=== PATIENT | female | born 1945 | race Caucasian/White ===

== ENCOUNTER 2020-06-07 00:03 | Emergency (ER) | payer MEDICARE, SELFPAY ==
[2020-06-07 00:09] VITALS: BP 136/80; BP 148/83; PULSE 79; PULSE 88; RESP 18; TEMP 36.7; O2SAT 97; BMI 32.6
--- NOTE | 2020-06-07 00:16 | ECG_ITS ---
Test Reason : FALL Blood Pressure : / mmHG Vent. Rate : 077 BPM Atrial Rate : 077 BPM P-R Int : 234 ms QRS Dur : 096 ms QT Int : 386 ms P-R-T Axes : 051 002 034 degrees QTc Int : 436 ms Sinus rhythm with 1st degree A-V block Otherwise normal ECG When compared with ECG of 25-FEB-2008 11:13, No significant change was found Referred By: Ruby Schreiber Electronically Signed By:TARI SALAZAR
--- NOTE | 2020-06-07 00:21 | CT_ITS ---
EXAMINATIONS: CT HEAD WITHOUT CONTRAST AND CT CERVICAL SPINE WITHOUT CONTRAST CLINICAL INFORMATION: Trauma. Fall. COMPARISON: None. TECHNIQUE: Contiguous helical images of the brain were obtained without IV contrast. Contiguous helical images of the cervical spine were obtained without IV contrast. Multiplanar reconstructions were performed. DLP: 1227 mGy-cm. FINDINGS: There are no pathologic extra-axial fluid collections. The lateral, third, fourth ventricles are nondilated and concordant with the appearance of the sulci. There is no evidence for acute intraparenchymal hemorrhage or infarct. There is neither mass nor mass effect. There is no shift of midline structures. The paranasal sinuses and mastoid air cells are clear. There are no osseous lesions. There is a soft tissue hematoma overlying the right frontal bone. The cervical vertebra are in normal alignment. There is disc height loss at C4/C5, C5/C6 and C6/C7 with anterior osteophyte formation. Disc heights and vertebral heights are otherwise well-preserved. There is fusion to the posterior elements on the right. There are no fractures. There is no prevertebral soft tissue swelling. There is no cervical lymphadenopathy. The visualized lung apices are clear. CT/CT cervical spine wo con IMPRESSION: No evidence for acute intracranial injury. No evidence for acute injury to the cervical spine. Age-appropriate lower cervical spine degenerative change. Automated exposure control (Care Dose) Adjustment of the mA and/or kv according to patient size (this includes techniques or standardized protocols for targeted exams where dose is matched to indication / reason for exam; i.e. extremities or head).
[2020-06-07] MEDS: oxyCODONE HCl Immed Release 5 MG TABLET 10 MG PO (00:34)
[2020-06-07] MEDS: Lidocaine HCl 2 % MPF 5 ML VIAL 20 ML INFILTRATI (00:34)
--- NOTE | 2020-06-07 01:33 | ED_ITS ---
HPI - Fall General Chief Complaint: Fall Stated Complaint: HEAD LAC Time Seen by Provider: 06/07/20 00:16 Source: patient Mode of arrival: EMS Limitations: no limitations History of Present Illness HPI Narrative: Patient comes to emergency room after tripping and falling. Patient states that she was walking down her hallway, there was a carpet and there were various objects laying around, while patient was trying to hurt all over 1 of them, she tripped. Patient states she hit her head, has a large laceration in the forehead and scalp, is not on blood thinners. Did not lose consciousness. Patient denies any acute pain anywhere else. Patient complaining of chronic pain all over her body, especially her back, but denies any new pain MD complaint: fall Related Data Previous Rx's Medication Instructions Recorded atenolol 25 mg tablet 25 mg PO DAILY #90 tab 05/13/20 allopurinol 300 mg tablet 150 mg PO DAILY #15 tab 05/18/20 Allergies Allergy/AdvReac Type Severity Reaction Status Date / Time aspirin [Aspirin] Allergy Mild NAUSEA Verified 06/07/20 00:09 codeine [Codeine] Allergy Mild VOMITING Verified 06/07/20 00:09 Aspir-81 AdvReac Unknown ABD Uncoded 02/02/20 00:00 CRAMPING ASPIRIN AdvReac Unknown Abd. Uncoded 01/22/20 00:00 cramping CODEINE AdvReac Unknown vomiting Uncoded 01/22/20 00:00 Codeine Sulfate AdvReac Unknown VOMIT Uncoded 02/02/20 00:00 Review of Systems Review of Systems: Constitutional : No Weight loss, No Fever, No Chills, No Night Sweats, No Fatigue, No Malaise ENT/Mouth : No Hearing loss, No Ear Pain, No Nasal Congestion, No Sinus Pain, No Hoarseness, No sore throat, No Rhinorrhea, No Swallowing Difficulty Eyes: No Eye Pain, No Swelling, No Redness, No Foreign Body, No Discharge, No Vision Changes Cardiovascular : No Chest Pain, No SOB, No Dyspnea on Exertion, No Orthopnea, No Edema, No Palpitations Respiratory : No Cough, No Sputum, No Wheezing, No Smoke Exposure, No Dyspnea Gastrointestinal : No Nausea, No Vomiting, No Diarrhea, No Constipation, No abdominal Pain, No Hematochezia, No Melena Genitourinary : no irregular bleeding, No Dysuria, No Urinary Frequency, No Hematuria, No Urinary Incontinence, No Urgency, No Flank Pain, No Urinary Flow Changes, No Hesitancy Musculoskeletal : Chronic back pain, no joint swelling Skin : Laceration in forehead and scalp Neuro : No Weakness, No Numbness, No Paresthesias, No Loss of Consciousness, No Dizziness, No Headache Psych : No Anxiety/Panic, No Depression, No SI/HI/AH/VH, No Social Issues, Heme/Lymph: No Bruising, No Bleeding,No Lymphadenopathy Endocrine : No Polyuria, No Polydipsia, No Temperature Intolerance [facility] Social History Social History Advance Directives: No Physical Exam Vital Signs: Vital Signs: Last Vital Signs Temp 98.1 F 06/07/20 00:09 Pulse 79 06/07/20 00:09 Resp 18 06/07/20 00:09 BP 148/83 H 06/07/20 00:09 Pulse Ox 97 06/07/20 00:09 Body Mass Index 32.6 Appearance: Alert. Oriented X3. No acute distress. Eyes: Pupils equal, round and reactive to light. ENT: Pharynx normal. Neck: Normal inspection. Neck supple. No lymph nodes noted. No crepitus CVS: Normal heart rate and rhythm. Pulses normal. Normal S1 and S2 Respiratory: No respiratory distress. Breath sounds normal. No Wheezing. No rales Abdomen: Soft and nontender. No rigidity. No distention. good BS x4 Skin: Skin warm and dry. There is a large laceration to the forehead, measuring 12 cm Extremities: No lower extremity edema. No lower extremity edema. No Lacerations. No Rash Neuro: Oriented X 3. No motor deficit. No sensory deficit. Moving all extermities. No slurred speech. Course Course Course Narrative: Patient tolerated well the procedure, patient received a total of 15 kyleigh and 6 sutures, CT scan of head and neck show no acute pathology Procedures Laceration Laceration 1: Site: scalp Size (cm): 12 Description: linear Depth: simple, single layer Local Anesthetic: lidocaine 2% Amount of anesthesia used (mL): 25 Pre-repair: irrigated extensively Skin layer closed with: nylon Size (cm): other (15 kyleigh and 6 sutures) Technique: simple, interrupted MDM - Fall Imaging Data Head and neck CT: Radiologist's impression: FINDINGS: There are no pathologic extra-axial fluid collections. The lateral, third, fourth ventricles are nondilated and concordant with the appearance of the sulci. There is no evidence for acute intraparenchymal hemorrhage or infarct. There is neither mass nor mass effect. There is no shift of midline structures. The paranasal sinuses and mastoid air cells are clear. There are no osseous lesions. There is a soft tissue hematoma overlying the right frontal bone. The cervical vertebra are in normal alignment. There is disc height loss at C4/C5, C5/C6 and C6/C7 with anterior osteophyte formation. Disc heights and vertebral heights are otherwise well-preserved. There is fusion to the posterior elements on the right. There are no fractures. There is no prevertebral soft tissue swelling. There is no cervical lymphadenopathy. The visualized lung apices are clear. CT/CT head/brain wo con IMPRESSION: No evidence for acute intracranial injury. No evidence for acute injury to the cervical spine. Age-appropriate lower cervical spine degenerative change.. ECG Data Attestation: I personally reviewed and interpreted this ECG as follows: (Sinus rhythm, heart rate 77, QTC 436, no ST segment depression or elevation, no T-wave inversions) Discharge Plan Discharge Clinical Impression: Laceration Fall Qualifiers: Encounter type: initial encounter Qualified Code(s): W19.XXXA - Unspecified fall, initial encounter Patient Disposition: Home, Self-Care Instructions: Laceration (ED), Contusion in Adults (ED), Staple Care (ED) Additional Instructions: The sutures and kyleigh need to be removed in 7-10 days. If you see any signs of infection such as redness, pus drainage, fever, or any new symptoms, please return to the emergency room. Please follow-up with your primary care physician tomorrow. If you have any worsening or new symptoms, please return to the emergency room or call 911 Prescriptions: No Action atenolol 25 mg tablet 25 mg PO DAILY Qty: 90 RF: 1 allopurinol 300 mg tablet 150 mg PO DAILY Qty: 15 RF: 3
--- NOTE | 2020-06-07 01:41 | PC.NURSE ---
PT W/ [facility] HEMATOMA TO R SIDE FOREHEAD & SCALP. LAC TO CTR OF TOP OF FOREHEAD CURVING TO PTS L SIDE OF SCALP. PT CLEARED OF C SPINE PRECAUTIONS. PT HAD 15 SARAH & 6 STITCHES TO LAC. TOLERATED WELL. AWAITING D/C INSTRUCTIONS. DAUGHTER TO RN URGENT CARE
[2020-06-07 02:00] VITALS: BP 137/82; PULSE 83; RESP 18; O2SAT 97
== END 2020-06-07 02:43 | disposition home or self-care (01) ==
PROVIDERS: Emergency Provider Emergency Medicine
DX: S01.81XA Laceration without foreign body of other part of head, initial encounter (principal); S01.01XA Laceration without foreign body of scalp, initial encounter; W01.198A Fall on same level from slipping, tripping and stumbling with subsequent striking against other object, initial encounter; Y93.89 Activity, other specified; Y92.018 Other place in single-family (private) house as the place of occurrence of the external cause; Y99.9 Unspecified external cause status
CPT/HCPCS: 12034; 70450; 72125; 93005; 99284

== ENCOUNTER → 2020-12-07 13:32 | Outpatient (BNVA) | payer MEDICARE, SELFPAY | PROVIDERS: PCP Physician Assistant; Visit Provider Internal Medicine | DX: Z13.89 Encounter for screening for other disorder (principal) | CPT/HCPCS: Q3014 ==

== ENCOUNTER → 2020-12-21 14:00 | Outpatient (BNVA) | payer MEDICARE, SELFPAY | PROVIDERS: PCP Physician Assistant; Referring Provider Physician Assistant; Visit Provider Surgery | DX: C44.509 Unspecified malignant neoplasm of skin of other part of trunk (principal); Z88.6 Allergy status to analgesic agent; Z88.5 Allergy status to narcotic agent | CPT/HCPCS: 99202 ==

== ENCOUNTER → 2020-12-27 10:35 | Outpatient (BNVA) | payer MEDICARE, SELFPAY | PROVIDERS: PCP Physician Assistant; Visit Provider Internal Medicine | DX: J41.0 Simple chronic bronchitis (principal); R06.89 Other abnormalities of breathing | CPT/HCPCS: 99212 ==

== ENCOUNTER 2020-12-29 10:32 | Day surgery (SDC) | payer MEDICARE, SELFPAY ==
--- NOTE | 2020-12-28 08:35 | P.CONAN_ITS ---
Documented by User: Molly Prattney 12/28/20 08:39 HPI - Anesthesia Eval Consult details Narrative: 75yo F for Wide Excision of Malignant Skin Lesion to Posterior Shoulder, Poss Split Thickness Skin Graft Pulmo cleared: FROM PULMONARY POINT OF VIEW SHE HAS NO CONTRAINDICATION TO JOEL NNED SURGICAL PROCEDURE UNDER GENERAL ANESTHESIA. AND I DO NOT ANTICIPATE ANY SIGNIFICANT RESPIRATORY ISSUES, POSTOPERATIVELY. chronic opioids - ? dose MS contin PMFSH Active Problems Active Problems: All Active Problems (Updated 12/27/20 @ 11:46 by Murphy Diamond MD) Hypoventilation syndrome (Acute) Skin cancer of trunk (Acute) COPD (chronic obstructive pulmonary disease) (Acute) Pyogenic granuloma (Acute) Failed back syndrome (Acute) Constipation due to pain medication (Acute) Visit for suture removal (Acute) Removal of kyleigh (Acute) Forehead laceration (Acute) HTN (hypertension) (Acute) Past Medical History Medical History COPD (chronic obstructive pulmonary disease) Failed back syndrome HTN (hypertension) Hypoventilation syndrome Skin cancer of face Skin cancer of trunk Family History Family History Father No problems noted. Mother No problems noted. Daughter Opiate dependence Substance use disorder Family/Other FH: mental illness Mental health disorder Surgical History Surgical History History of ankle surgery History of hip surgery History of knee surgery History of shoulder surgery Social History Social History Housing: Assisted Living Facility Alcohol intake: never Patient Tobacco Use Status: Former Tobacco user Tobacco use type: Cigarette Smoked in Last 30 Days: No Use of substances other than those prescribed or required for medical reasons: No Are you DNR?: No Advance Directives: No Advance Directives Information Provided: Yes Recently lost weight without trying: No Nutrition Risks: No Nutritional Risk Patient : No Current occupational status: retired Meds Allergies Allergy/AdvReac Type Severity Reaction Status Date / Time aspirin [Aspirin] Allergy Mild NAUSEA Verified 12/27/20 10:41 codeine [Codeine] Allergy Mild VOMITING Verified 12/27/20 10:41 Home Medications Medication Instructions Recorded Confirmed Last Taken Type buprenorphine HCl 300 mcg buccal 300 mcg PO BID 06/18/20 11/25/20 Unknown History film famotidine 20 mg tablet 20 mg PO BID 06/18/20 11/25/20 Unknown History flu vacc 2019-(64yr 0.5 ml IM DIRECTED 06/18/20 08/04/20 Unknown History up)-MF59C(PF) 60 mcg(15 mcgx4)/0.5 mL IM syringe lactulose 10 gram/15 mL oral 15 ml PO DAILY PRN 06/18/20 11/25/20 Unknown History solution naloxone 4 mg/actuation nasal spray 0 spray INTRANASAL DAILY 06/18/20 11/25/20 Unknown History topiramate 200 mg tablet 200 mg PO BID 06/18/20 11/25/20 Unknown History diazepam 5 mg tablet 5 mg PO TID tab 07/01/20 11/25/20 Unknown History morphine 15 mg immediate release mg PO 07/01/20 11/25/20 Unknown History tablet misoprostol 100 mcg tablet 100 mcg PO TID tab 12/07/20 Unknown History docusate sodium 100 mg capsule 100 mg PO BID 12/21/20 Unknown History lidocaine 5 % topical ointment TOPICAL 12/21/20 Unknown History ranitidine HCl 150 mg capsule 150 mg PO BID cap 12/21/20 Unknown History terbutaline 5 mg tablet 5 mg PO TID 12/21/20 Unknown History morphine 0.5 - 1 tab PO TID PRN 12/29/20 12/29/20 12/29/20 06:00 History Exam Exam Date and Time: December 28, 2020 0835 Narrative Narrative: EKG 05/2020 Vent. Rate : 077 BPM Atrial Rate : 077 BPM P-R Int : 234 ms QRS Dur : 096 ms QT Int : 386 ms P-R-T Axes : 051 002 034 degrees QTc Int : 436 ms Sinus rhythm with 1st degree A-V block Otherwise normal ECG When compared with ECG of 25-FEB-2008 11:13, No significant change was found Assessment and Plan Assessment Anesthesia Assessment: Chart Reviewed Documented by User: Kierra Castillo 12/29/20 11:30 [facility] Past Medical History Medical History COPD (chronic obstructive pulmonary disease) Failed back syndrome HTN (hypertension) Hypoventilation syndrome Skin cancer of face Skin cancer of trunk Family History Family History Father No problems noted. Mother No problems noted. Daughter Opiate dependence Substance use disorder Family/Other FH: mental illness Mental health disorder Surgical History Surgical History History of ankle surgery History of hip surgery History of knee surgery History of shoulder surgery Social History Social History Housing: Assisted Living Facility Alcohol intake: never Patient Tobacco Use Status: Former Tobacco user Tobacco use type: Cigarette Smoked in Last 30 Days: No Use of substances other than those prescribed or required for medical reasons: No Are you DNR?: No Advance Directives: No Advance Directives Information Provided: Yes Recently lost weight without trying: No Nutrition Risks: No Nutritional Risk Patient : No Current occupational status: retired [employer] Allergies Allergy/AdvReac Type Severity Reaction Status Date / Time aspirin [Aspirin] Allergy Mild NAUSEA Verified 12/27/20 10:41 codeine [Codeine] Allergy Mild VOMITING Verified 12/27/20 10:41 Home Medications Medication Instructions Recorded Confirmed Last Taken Type buprenorphine HCl 300 mcg buccal 300 mcg PO BID 06/18/20 11/25/20 Unknown History film famotidine 20 mg tablet 20 mg PO BID 06/18/20 11/25/20 Unknown History flu vacc (64yr 0.5 ml IM DIRECTED 06/18/20 08/04/20 Unknown History up)-MF59C(PF) 60 mcg(15 mcgx4)/0.5 mL IM syringe lactulose 10 gram/15 mL oral 15 ml PO DAILY PRN 06/18/20 11/25/20 Unknown History solution naloxone 4 mg/actuation nasal spray 0 spray INTRANASAL DAILY 06/18/20 11/25/20 Unknown History topiramate 200 mg tablet 200 mg PO BID 06/18/20 11/25/20 Unknown History diazepam 5 mg tablet 5 mg PO TID tab 07/01/20 11/25/20 Unknown History morphine 15 mg immediate release mg PO 07/01/20 11/25/20 Unknown History tablet misoprostol 100 mcg tablet 100 mcg PO TID tab 12/07/20 Unknown History docusate sodium 100 mg capsule 100 mg PO BID 12/21/20 Unknown History lidocaine 5 % topical ointment TOPICAL 12/21/20 Unknown History ranitidine HCl 150 mg capsule 150 mg PO BID cap 12/21/20 Unknown History terbutaline 5 mg tablet 5 mg PO TID 12/21/20 Unknown History morphine 0.5 - 1 tab PO TID PRN 12/29/20 12/29/20 12/29/20 06:00 History Exam Airway Mallampati Class: II TM Dist: >3cm Neck ROM: Limited Assessment and Plan Assessment Anesthesia Assessment: Anesthesia Plan Discussed and Chart Reviewed Final Anesthetic Review NPO: Yes ASA Class: III Final Preanesthetic Review: No Changes in Pt Med Stat, Meds/Allgs Chart Reviewed, Consent Obtained/Reviewed and Anes Risks/Benef Reviewed Patient Risk: Intermediate Procedure Risk: Low Assessment/Block/Sedation in SS: Assess/Block/Sedation-SS Anesthetic Plan Anesthetic Plan: GA Disposition: Standard PACU
[2020-12-29] VITALS (11 sets, daily range): BP systolic 91–143; BP diastolic 45–72; PULSE 86–114; RESP 16–20; TEMP 36.3–37.1; O2SAT 92–96; BMI 30.1
[2020-12-29 10:58] LABS: Hematocrit 38.8 % (37-47); Mean Corpuscular HGB Conc 33.5 g/dl (31.0-35.0); Mean Corpuscular Hemoglobin 33.9 pg (27.0-33.0); Mean Platelet Volume 10.5 fL (9.4-12.3); Platelet Count 149 X10*3/uL (160-400); Red Blood Count 3.84 X10*6/uL (4.20-5.50); Red Cell Distribution Width 13.5 % (11.0-16.0); White Blood Count 5.7 X10*3/uL (4.8-10.8)
--- NOTE | 2020-12-29 11:07 | PC.NURSE ---
APPLIED 2L NC FOR COMFORT TO REAPPLY CLEAR SHIELD.
[2020-12-29] MEDS: Lactated Ringers 1,000 ML 100 ML IVCONT (11:15)
--- NOTE | 2020-12-29 11:20 | PC.NURSE ---
CALLED FOR RESP TREATMENT.
[2020-12-29] MEDS: Albuterol Sulfate (0.083%) 2.5 MG/3 ML VIAL.NEB INHALE (11:24)
--- NOTE | 2020-12-29 11:26 | PC.NURSE ---
RECEVING RESP TREATMENT. HOB 90 DEGREES. NADEGE WELL. OXYGEN REMAINS ON FOR COMFORT. DECREASED ANXIETY. NO SHAKING OR CRYING.
[2020-12-29 11:33] LABS: Anion Gap 13 (12-20); Blood Urea Nitrogen 22 mg/dL (9-16); Calcium 9.2 mg/dL (8.4-10.2); Carbon Dioxide 24 mmol/L (22-29); Chloride 110 mmol/L (96-108); Creatinine Clr Calc Pharmacy 50.6; Estimated Glomerular Filt Rate 59; Glucose Fasting 123 mg/dL (60-99); Potassium 3.7 mmol/L (3.3-5.1); Sodium 143 mmol/L (135-145)
--- NOTE | 2020-12-29 13:10 | P.OP_ITS ---
Operative Note Operative Note Date of Service: 12/29/20 Narrative: Preoperative diagnosis: Skin Neoplasm right posterior shoulder Postoperative diagnosis: Same Procedure: Excision of skin neoplasm right posterior shoulder Surgeon: Sudheer Barreto MD Physical Therapy Resident: No physician Anesthesia: General LMA Indications for procedure: 75-year-old female patient presenting with a large ulcerated lesion of the right posterior shoulder measuring approximately 5 cm in diameter. The lesion has gradually increased in size with associated itchiness the skin. She initially thought this was an infection however after course of antibiotics she continue to report the same symptoms. 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 Operative findings: Patient was found to have a 5 cm skin lesion in the right posterior shoulder. This was excised using a 5 mm margin circumferentially. Specimen: Skin neoplasm right posterior shoulder Estimated blood loss: 10 mL Complications: None Procedure details: Patient was brought to the OR and placed in a prone position. After administering general anesthesia the patient's right shoulder was prepped with Betadine and draped in a sterile fashion. A surgical time-out was called the consent confirmed. Patient received preoperative antibiotics and Venodyne boots were in place. Local anesthesia consisting of 0.25% Sensorcaine with epinephrine was then infiltrated circumferentially around the lesion. An elliptical incision oriented longitudinally was then created with a scalpel. This was carried out through subcutaneous tissue and around the skin lesion. The lesion was marked with a long suture on the lateral margin short suture on the superior margin and loop suture on the inferior margin. The lesion was passed off the table and sent to pathology for routine evaluation. The wounds were checked for hemostasis which was assured using electrocautery. Dermis was then reapproximated using interrupted 3-0 Polysorb sutures. Skin was closed using a 3-0 nylon suture as a retention suture followed by skin kyleigh in between. Additional local anesthesia was then infiltrated in the skin. Sterile dressings were then applied. The patient tolerated the procedure well. Sponge, instrument, and needle counts reported as correct. The patient was transferred to PACU in stable condition.
[2020-12-29] MEDS: oxyCODONE HCl Immed Release 5 MG TABLET PO (13:45)
== END 2020-12-29 15:15 | disposition home or self-care (01) ==
PROVIDERS: Nurse Practitioner; PCP Physician Assistant; Visit Provider Surgery
PROC: (CPT 11606; principal; 2020-12-29 12:00)
DX: C44.622 Squamous cell carcinoma of skin of right upper limb, including shoulder (principal); J44.9 Chronic obstructive pulmonary disease, unspecified; R06.89 Other abnormalities of breathing; I10 Essential (primary) hypertension; Z79.51 Long term (current) use of inhaled steroids; Z79.899 Other long term (current) drug therapy; Z88.8 Allergy status to other drugs, medicaments and biological substances; Z87.891 Personal history of nicotine dependence
CPT/HCPCS: 11606; 12032; 36415; 80048; 85027; 88305; 94640; J0131; J0690; J1100; J2405; J3010

== ENCOUNTER → 2021-01-11 09:46 | Outpatient (BNVA) | payer MEDICARE, SELFPAY | PROVIDERS: PCP Physician Assistant; Referring Provider Physician Assistant; Visit Provider Surgery | DX: Z48.3 Aftercare following surgery for neoplasm (principal); Z85.828 Personal history of other malignant neoplasm of skin | CPT/HCPCS: 99212 ==

== ENCOUNTER → 2021-06-27 14:05 | Outpatient (BNVA) | payer MEDICARE, SELFPAY | PROVIDERS: PCP Physician Assistant; Visit Provider Internal Medicine | DX: J41.0 Simple chronic bronchitis (principal); R06.89 Other abnormalities of breathing | CPT/HCPCS: Q3014 ==

== ENCOUNTER → 2022-02-09 14:26 | Outpatient (BNVA) | payer MEDICARE, SELFPAY | PROVIDERS: PCP Physician Assistant; Visit Provider Internal Medicine | DX: J41.0 Simple chronic bronchitis (principal); R06.89 Other abnormalities of breathing; M96.1 Postlaminectomy syndrome, not elsewhere classified | CPT/HCPCS: Q3014 ==

== ENCOUNTER 2023-04-04 14:47 | Outpatient (AMB) | payer MEDICARE, SELFPAY ==
[2023-04-04 14:48] VITALS: BMI 33.3
--- NOTE | 2023-04-04 14:48 | MHC.OFFVIS ---
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 Allergies aspirin [Aspirin] Allergy (Mild, Verified 04/04/23 14:59) NAUSEA codeine [Codeine] Allergy (Mild, Verified 04/04/23 14:59) VOMITING Medication List - Last Reconciled 04/04/23 by Murphy Diamond MD acetaminophen 500 mg PO Q6H PRN 30 days albuterol sulfate 90 mcg/actuation 2 puffs PO Q4-6H PRN alcohol swabs (Alcohol Prep Pads) 1 pad topical TID 90 days allopurinol 150 mg (1/2 x 300 mg) PO DAILY apixaban (Eliquis) 5 mg PO BID 30 days blood sugar diagnostic (FreeStyle Lite Strips) As directed blood sugar diagnostic (OneTouch Ultra Test strips) As directed check blood sugar 3 times a day blood-glucose meter (FreeStyle Lite Meter kit) As directed blood-glucose meter (OneTouch Ultra2 Meter kit) As directed check the blood sugar TID diltiazem HCl 240 mg PO DAILY 90 days docusate sodium 100 mg PO BID PRN famotidine 20 mg PO DAILY 90 days flash glucose scanning reader (FreeStyle Sinan 2 [place]) As directed flash glucose scanning reader (FreeStyle Sinan 2 [place]) As directed flash glucose sensor (FreeStyle Sinan 2 Sensor kit) As directed flash glucose sensor (FreeStyle Sinan 2 Sensor kit) As directed fluticasone furoate-vilanterol 200-25 mcg/dose (Breo Ellipta) 1 ea inhalation DAILY furosemide 40 mg PO BID gabapentin 300 mg PO TID [address] bed As directed insulin glargine 20 units (0.2 mL) subcut QAM insulin lispro (Admelog SoloStar U-100 Insulin lispro) 15 units (0.15 mL) subcut TID ipratropium-albuterol 0.5 mg-3 mg(2.5 mg base)/3 mL 3 mL inhalation Q6H PRN lactulose 15 mL PO DAILY PRN lancets (OneTouch UltraSoft Lancets) As directed check the blood sugar TID lancets (FreeStyle Lancets) As directed lidocaine 5% 1 appl topical DAILY 30 days meclizine 12.5 mg PO TID PRN metoprolol tartrate 25 mg PO TID 90 days miscellaneous medical supply 1 ea miscellaneous DAILY 99 days miscellaneous medical supply 1 ea miscellaneous DAILY 99 days misoprostol 100 mcg PO TID naloxone 4 mg/actuation 0 sprays intranasal DAILY paroxetine HCl 20 mg PO QAM pen needle, diabetic (BD Ultra-Fine Tamia Pen Needle) three times per day sennosides (Senna Lax) 17.2 mg (2 x 8.6 mg) PO BEDTIME PRN 30 days theophylline ER 200 mg PO Q12H 30 days tiotropium bromide (Spiriva with HandiHaler) 1 cap inhalation DAILY 30 days topiramate 200 mg PO BID Do you need a note to return to daycare/school/sports/work: No HPI COPD HPI Details Ellen is 77 years old female with longstanding history of chronic obstructive pulmonary disease,due to her previous smoking. She also has chronic history of opioid abuse, due to ongoing chronic back pain. She used to be on morphine sulfate ER b.i.d. for many years but not at present. Her COPD remains fairly controlled , but she gets short of breath on any minimal exertion. She has been on Spiriva HandiHaler as well as Breo Ellipta, and she has been taking theophylline ER 200 mg b.i.d. for long time. Her current complaint is that she is having very bad and frequent cough for the last few weeks, She has no fever or chills. The cough is mostly non productive. It is making her breathing worse. She could not .come to the office today Requested a tele visit. [facility] Medical History (Updated 04/04/23 @ 15:53 by Murphy Diamond MD) Cough Hypoventilation syndrome Skin cancer of trunk Skin cancer of face COPD (chronic obstructive pulmonary disease) Failed back syndrome Surgical History History of knee surgery History of shoulder surgery History of ankle surgery History of hip surgery Family History Father No problems noted. Mother No problems noted. Daughter Opiate dependence Substance use disorder Family/Other FH: mental illness Mental health disorder Social History Housing: Assisted Living Facility Alcohol intake: never Patient Tobacco Use Status: Former Tobacco user Tobacco use type: Cigarette e-Cigarette/Vaping Use: Never Used Current occupational status: retired and disabled Cognitive needs: Yes Hearing needs: No Vision needs: Yes Review of Systems Const All systems reviewed & are unremarkable except as noted in HPI and below Reports headache(s) (Frequent) Eyes Reports no additional complaints ENT Reports headache(s) (Frequent) and Reports nasal congestion (Mild off and) Card Denies chest pain, Denies irregular heart rhythm and Denies leg edema Resp Reports as per HPI GI Reports no additional complaints Reports no additional complaints Musc Reports back pain (Chronic, controlled) Skin/Breast Reports system reviewed and no additional complaints, except as documented Neuro Reports headache(s) (Frequent) Psych Reports no additional complaints Physical Exam Vital Signs: BMI result Body Mass Index 33.3 TELE VISIT SO NO PHYSICAL EXAMINATION PERFORMED HOWEVER PATIENT APPEARED VERY ANXIOUS, SHORT OF BREATH DURING CONVERSATION, AND FEARFUL THAT SHE MAY END UP IN THE HOSPITAL AGAIN. Assessment & Plan Assessment & Plan (1) COPD (chronic obstructive pulmonary disease): Comment: Has chronic COPD due to old time smoking/ Br Asthma It has remained relatively stable. TX: BREO-201 INHALATION DAILY INCRUSE ELLIPTA 1 INHALATION DAILY. PROAIR 2 PUFFS Q 4-6 HOURS P.R.N. THEOPHYLLINE ER 200 MG( HALF OF 400 MG) BID Code(s): J44.9 - Chronic obstructive pulmonary disease, unspecified Qualifiers: COPD type: chronic bronchitis Chronic bronchitis type: simple Qualified Code(s): J41.0 - Simple chronic bronchitis (2) Hypoventilation syndrome: Comment: EARLY ON WHEN SHE USED TO BE ON HEAVY DUTY NARCOTIC MEDS, SHE DID HAVE EVIDENCE OF SOME CO2 RETENTION, CONSIDERED TO BE DUE TO HYPOVENTILATION. THE MEDICAL REGIMEN NOTED ABOVE, ESPECIALLY THEOPHYLLINE , HAS HELPED TO ALLEVIATE HER HYPOVENTILATION PROBLEM. Code(s): R06.89 - Other abnormalities of breathing (3) Failed back syndrome: Comment: THIS KEEPS HER SEVERELY IMPAIRED AND DEBILITATED. FOR CHRONIC PAIN SHE HAS BEEN FOLLOWED AT THE [facility]. AND USES MORPHINE SULFATE 15 MG Q 6 HOURS P.R.N. Code(s): M96.1 - Postlaminectomy syndrome, not elsewhere classified (4) Opiate dependence: Comment: She has had opiates dependence for many years for her chronic back pain/ failed back surgeries in the past. Code(s): F11.20 - Opioid dependence, uncomplicated Qualifiers: Substance use status: uncomplicated Qualified Code(s): F11.20 - Opioid dependence, uncomplicated (5) Cough: Comment: The cough at this time is described as out of proportion to her COPD. Most likely she has acute respiratory infection. Will empirically treat with doxycycline 100 b.i.d. for 10 days. Continue to use DuoNeb updraft Q 4-6 hours p.r.n.. I told patient that if she is not any better in the next few weeks she should come for office visit in person . Code(s): R05.9 - Cough, unspecified Telehealth Telehealth Location of provider rendering services: practice address Location of patient: address on file Patient Identification confirmed using: Name, : Yes Telehealth method: voice only Patient verbally consented to treatment: Yes Patient verbally consented to billing insurance company: Yes Patient informed of any privacy concerns related to visit: Yes Minutes spent on Phone/Video with Pt.: 20 Coding Level of Care Code Tele [facility] Pt Level 3 (85534) Diagnoses Simple chronic bronchitis J41.0 COPD type: chronic bronchitis Chronic bronchitis type: simple Hypoventilation syndrome R06.89 Failed back syndrome M96.1 Uncomplicated opioid dependence F11.20 Substance use status: uncomplicated Cough R05.9
== END 2023-04-04 15:05 | disposition home or self-care (01) ==
LOC: HO.HPS 14:47
PROVIDERS: PCP Physician Assistant; Visit Provider Internal Medicine
DX: J41.0 Simple chronic bronchitis (principal); M96.1 Postlaminectomy syndrome, not elsewhere classified; F11.20 Opioid dependence, uncomplicated
CPT/HCPCS: 99442

== ENCOUNTER → 2023-04-04 14:47 | Outpatient (BNVA) | payer MEDICARE, SELFPAY | PROVIDERS: PCP Physician Assistant; Visit Provider Internal Medicine ==

== ENCOUNTER 2023-04-17 13:59 | Outpatient (AMB) | payer MEDICARE, SELFPAY ==
--- NOTE | 2023-04-17 14:11 | MHC.PC.OV ---
Vital Signs 04/17/23 14:29 Height 5 ft 3 in Weight 194 lb 7.163 oz BMI 34.4 BP 130/72 Blood Pressure Location Lt brachial Position Sitting Respiration 17 Pulse 94 Pulse Source Pulse Oximeter Pulse Oximetry (%) 93 Oxygen Delivery Method Room Air Intake Visit Reasons: medication f/u Dr[employer] Offsider Required: No Accompanied by: Self / Same As Patient Allergies aspirin [Aspirin] Allergy (Mild, Verified 04/17/23 14:37) NAUSEA codeine [Codeine] Allergy (Mild, Verified 04/17/23 14:37) VOMITING Medication List - Last Reconciled 04/17/23 by Ti Thompson PA-C acetaminophen 500 mg PO Q6H PRN 30 days albuterol sulfate 90 mcg/actuation 2 puffs PO Q4-6H PRN alcohol swabs (Alcohol Prep Pads) 1 pad topical TID 90 days allopurinol 150 mg (1/2 x 300 mg) PO DAILY apixaban (Eliquis) 5 mg PO BID 30 days blood sugar diagnostic (FreeStyle Lite Strips) As directed blood sugar diagnostic (OneTouch Ultra Test strips) As directed check blood sugar 3 times a day blood-glucose meter (FreeStyle Lite Meter kit) As directed blood-glucose meter (OneTouch Ultra2 Meter kit) As directed check the blood sugar TID diltiazem HCl 240 mg PO DAILY 90 days docusate sodium 100 mg PO BID PRN famotidine 20 mg PO DAILY 90 days flash glucose scanning reader (FreeStyle Sinan 2 Thrall) As directed flash glucose scanning reader (FreeStyle Sinan 2 Thrall) As directed flash glucose sensor (FreeStyle Sinan 2 Sensor kit) As directed flash glucose sensor (FreeStyle Sinan 2 Sensor kit) As directed fluticasone furoate-vilanterol 200-25 mcg/dose (Breo Ellipta) 1 ea inhalation DAILY furosemide 40 mg PO BID gabapentin 300 mg PO TID 90 [address] hospital bed As directed insulin glargine 20 units (0.2 mL) subcut QAM insulin lispro (Admelog SoloStar U-100 Insulin lispro) 15 units (0.15 mL) subcut TID ipratropium-albuterol 0.5 mg-3 mg(2.5 mg base)/3 mL 3 mL inhalation Q6H PRN lactulose 15 mL PO DAILY PRN lancets (EnTouch ControlsTouch UltraSoft Lancets) As directed check the blood sugar TID lancets (FreeStyle Lancets) As directed lidocaine 5% 1 appl topical DAILY 30 days meclizine 12.5 mg PO TID PRN metoprolol tartrate 25 mg PO TID 90 days miscellaneous medical supply 1 ea miscellaneous DAILY 99 days miscellaneous medical supply 1 ea miscellaneous DAILY 99 days misoprostol 100 mcg PO TID naloxone 4 mg/actuation 0 sprays intranasal DAILY paroxetine HCl 20 mg PO QAM pen needle, diabetic (BD Ultra-Fine Tamia Pen Needle) three times per day sennosides (Senna Lax) 17.2 mg (2 x 8.6 mg) PO BEDTIME PRN 30 days theophylline ER 200 mg PO Q12H 30 days tiotropium bromide (Spiriva with HandiHaler) 1 cap inhalation DAILY 30 days topiramate 200 mg PO BID Tobacco use date assessed: 04/17/23 Fall risk assessment: No Falls in past year Last assessed Fall Risk: 04/17/23 Dental Screening Dental Screen Date: 04/17/23 Did you have a dental visit in the last 12 months?: No Did you have a dental problem in the last 6 months where you did not have access to dental care?: No Was dental information given to patient?: No (Dentures) HPI medication f/u HPI Details Patient is a 77-year-old female here today for follow-up visit. Patient has a past medical history significant for hypertension, paroxysmal AFib, Congestive heart failure with preserved left ejection fraction, type 2 diabetes, failed back syndrome, COPD Very difficult for her to make it into appointments due to her debilitating neck and lower back pain. Failed back syndrome: Patient was followed by [facility] pain management though has recently been discharge for a positive urine drug screen for cocaine . She has been weaned off of morphine She is now on gabapentin 300 t.i.d. and reports no affect on her pain. She is asking for a new medication for her pain. Will supply her with cyclobenzaprine 10 mg t.i.d.. . DMII: Today's A1c of 5.8.. Patient continues on multiple injections of insulin per day. She continues to follow her sugars at home reports normal blood sugars. No reports of hypoglycemic events. Unfortunately has not been able to get fasting labs done due to transportation issues. .. 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 She is a former smoker. She does report still having some shortness of breath on exertion. Continues with p.r.n. use of her albuterol inhaler and daily use of her Breo inhaler. .. AFib: Continues on Eliquis and beta-tate for rate control. Currently not followed by attending physician.. Denies any overt signs of bleeding. . Congestive heart failure: Continue with the daily furosemide 40 mg b.i.d.. Appears to be euvolemic on physical exam today. [facility] Medical History (Updated 04/17/23 @ 14:43 by Ti Thompson PA-C) Cough Hypoventilation syndrome Skin cancer of trunk Skin cancer of face COPD (chronic obstructive pulmonary disease) Failed back syndrome Surgical History History of knee surgery History of shoulder surgery History of ankle surgery History of hip surgery Family History Father No problems noted. Mother No problems noted. Daughter Opiate dependence Substance use disorder Family/Other FH: mental illness Mental health disorder Social History Housing: Assisted Living Facility Alcohol intake: never Patient Tobacco Use Status: Former Tobacco user Tobacco use type: Cigarette e-Cigarette/Vaping Use: Never Used service: No Current occupational status: retired and disabled Cognitive needs: Yes Hearing needs: No Vision needs: Yes Questionnaire PHQ-9 Over the last 2 weeks, how often have you been bothered by any of the following problems? 1. Little interest or pleasure in doing things: not at all 2. Feeling down, depressed, or hopeless: not at all 3. Trouble falling or staying asleep, or sleeping too much: not at all 4. Feeling tired or having little energy: not at all 5. Poor appetite or overeating: not at all 6. Feeling bad about yourself - or that you are a failure or have let yourself or your family down: not at all 7. Trouble concentrating on things, such as reading the newspaper or watching television: not at all 8. Moving or speaking so slowly that other people could have noticed. Or the opposite - being so fidgety or restless that you have been moving around a lot more than usual: not at all 9. Thoughts that you would be better off or of hurting yourself in some way: not at all Total score: 0 Depression Screening Interpretation: Negative Depression Screening Done: Yes 22295 - PHQ-9 Billing: Yes Source: Developed by Drs. Dylan Asif, Saundra Thompson, Vik Vega and colleagues, with an educational elías from [employer]. Thrive Questionnaire Date Thrive assessed: 04/17/23 I am a: Patient What is your living situation today?: I have a steady place to live Within the past 12 months, did the food you bought not last and you didn't have the money to get more?: Never true Within the past 12 months, did you worry whether your food would run out before you got money to buy more?: Never true Do you have trouble paying for medicines?: No Do you have trouble getting transportation to medical appointments?: No Do you have trouble paying your heating and electricity bill?: No Do you have trouble taking care of your child, family member or friend?: No Do you have trouble with day-to-day activities such as bathing, preparing meals, shopping, managing finances, etc.?: No Are you currently unemployed and looking for a job?: No Are you interested in more education?: No Please select the resources that you would like help with: None Currently or been in a relationship where the following occur: no concerns reported AUDIT C Alcohol Use Questionnaire (AUDIT-C) 1. How often do you have a drink containing alcohol?: Never 3. How often do you have six or more drinks on one occasion?: Never Total Score: 0 CADEN-7 AMB Questionnaire CADEN-7 Date CADEN - 7 assessed: 04/17/23 Feeling nervous, anxious, or on edge: 0 = Not at all Not being able to stop or control worryin = Not at all Worrying too much about different things: 0 = Not at all Trouble relaxin = Not at all Being so restless that it is hard to sit still: 0 = Not at all Becoming easily annoyed or irritable: 0 = Not at all Feeling afraid as if something awful might happen: 0 = Not at all Total CADEN-7 score (0-4 normal; 5-9 mild; 10-14 moderate; 15-21 severe): 0 Source: Developed by Drs. Dylan Asif, Saundra Thompson, Vik Vega and colleagues, with an educational elías from [employer]. CADEN-7 Assessment Billing CADEN-7 Assessment Tool: CADEN-7 Assessment 56931 Review of Systems Const Denies headache(s) Eyes Denies loss of vision ENT Denies vertigo, Denies dizziness, Denies headache(s) and Denies sore throat Card Denies chest pain, Denies leg edema and Denies lightheadedness Resp Denies cough, Denies hemoptysis and Denies wheezing GI Denies abdominal pain, Denies melena, Denies constipation, Denies diarrhea and Denies vomiting Denies urinary frequency, Denies dysuria and Denies urinary urgency Musc Denies arthralgias, Denies joint swelling, Denies numbness and Denies tingling Neuro Denies Abnormal speech present, Denies behavioral changes, Denies vertigo, Denies dizziness, Denies headache(s), Denies loss of vision, Denies memory loss, Denies numbness and Denies tingling Psych Denies anxiety, Denies behavioral changes, Denies depression, Denies memory loss and Denies panic attacks Jas/Lymph Denies easy bleeding and Denies easy bruising Aller/Immun Denies wheezing Physical exam (Primary Care) Vital Signs: Last Vital Signs Pulse 94 04/17/23 14:29 Resp 17 04/17/23 14:29 BP 130/72 04/17/23 14:29 Pulse Ox 93 04/17/23 14:29 Oxygen Delivery Method Room Air 04/17/23 14:29 BMI result Body Mass Index 34.4 BMI Assessment/Plan discussion: High Tobacco/Smoking Status: Tobacco use Status Tobacco use date assessed 04/17/23 04/17/23 14:35 Patient Tobacco Use Status Former Tobacco user 04/17/23 14:12 Tobacco use type Cigarette 04/17/23 14:12 e-Cigarette/Vaping Use Never Used 04/17/23 14:12 PHQ-9: PHQ-9 Score PHQ-9: Total score 0 04/17/23 15:05 Depression Screening Interpretation: Negative Thrive Assessment: Date of Thrive Assessment Date Thrive assessed 04/17/23 04/17/23 14:35 Currently or been in a relationship where the following occur: no concerns reported Const Other: Obese General: healthy appearing, no acute distress, alert and awake Nutritional Appearance: well nourished Orientation/consciousness: oriented to person, oriented to place and oriented to time HENMT Ears: TM's normal bilaterally General nose exam: Normal nasal mucous membranes and turbinates present Eyes Conjunctivae: conjunctivae normal Sclerae: sclerae normal Pupils: Equal, round and reactive pupils present Neck Other: LIMITED ROTATIONAL RANGE OF MOTION AND FLEXION OF THE CERVICAL SPINE Neck: Yes no lymphadenopathy and Yes no JVD Thyroid: Thyroid normal Carotids: no bruits Resp Effort & Inspection: normal respiratory effort and not tachypneic Auscultation: no crackles, no rales, no rhonchi and no wheezes Cardio Rate: regular rate Rhythm: regular rhythm Heart sounds: no murmurs and normal S1 and S2 GI Palpation (GI): Soft to palpation, nontender, no hepatomegaly and no splenomegaly Auscultation: normal bowel sounds Skin General skin exam: no rashes or lesions noted and dry skin Neuro General: oriented to person, oriented to place and oriented to time Cranial nerves: Yes Equal, round and reactive pupils present Speech: No Abnormal speech present Gait exam (Neuro): Normal gait present Motor exam (neuro): no tremor noted Extrem Right upper extremity: full ROM Left upper extremity: full ROM Right lower extremity: full ROM; no edema Left lower extremity: full ROM; no edema Psych Mental Status: mental status grossly normal Speech and movement: Normal speech and movement present Affect: normal affect Attitude: cooperative Thought process: Normal thought process present Office Procedures Flu Questionnaire Does the patient have a severe egg allergy?: No Does the patient have severe life threatening allergies?: No Does the patient have a fever or illness today?: No Has the patient ever had Guillain-[place] Syndrome?: No Has the patient ever had any past reaction to a flu shot?: No Results AMB Hemoglobin A1c AMB Hemoglobin A1c 5.8 % Last Edit by ROBERTO Simms on 04/17/23 15:19 Immunizations flu vacc [id number] 6mos up(PF) 60 mcg(15 mcgx4)/0.5 mL IM syringe Performing Provider: Ti Thompson PA-C [facility] Administered by: ROBERTO Simms on 04/17/23 15:05 Dose Route Admin Location Dispensed Lot Number Expiration Date [facility] Operations Team Leader 0.5 mL IM Right Deltoid 0.5 mL [id number] 12/09/23 [id number] [employer] VIS Given Date VIS Provided VIS Publication Date 04/17/23 Single Vaccine 21 Eligibility Eligibility Date Funding Source Not [facility] Eligible 04/17/23 Private Assessment and Plan Assessment & Plan (1) HTN (hypertension): Code(s): I10 - Essential (primary) hypertension Qualifiers: Hypertension type: essential hypertension Qualified Code(s): I10 - Essential (primary) hypertension Plan: Patient's blood pressure acceptable today in office. Will continue her current dose of antihypertensive medication with goal blood pressure to be below 140/90 (2) DMII (diabetes mellitus, type 2): Code(s): E11.9 - Type 2 diabetes mellitus without complications Qualifiers: Diabetes mellitus fdc insulin use: without fdc use Diabetes mellitus complication status: with hyperglycemia Qualified Code(s): E11.65 - Type 2 diabetes mellitus with hyperglycemia Plan: Patient's type 2 diabetes well controlled with current management. A1c today of 5.8. Patient continues with insulin therapy for her type 2 diabetes. Will transition her to a continues glucose monitor for better diabetes management. Goal A1c to be below 7.0 (3) Failed back syndrome: Comment: THIS KEEPS HER SEVERELY IMPAIRED AND DEBILITATED. FOR CHRONIC PAIN SHE HAS BEEN FOLLOWED AT THE [facility]. AND USES MORPHINE SULFATE 15 MG Q 6 HOURS P.R.N. Code(s): M96.1 - Postlaminectomy syndrome, not elsewhere classified Plan: As above patient now off of opiate pain medication. Continues with gabapentin for the treatment of her lower back pain. She reports the gabapentin is not helping. She reports being a lot of pain. Will supply her with muscle relaxer to help reduce her pain (4) Opiate dependence: Comment: She has had opiates dependence for many years for her chronic back pain/ failed back surgeries in the past. Code(s): F11.20 - Opioid dependence, uncomplicated Qualifiers: Substance use status: uncomplicated Qualified Code(s): F11.20 - Opioid dependence, uncomplicated Plan: Has been recently in remission. Has been weaned off of morphine by her [facility] pain management. (5) Paroxysmal A-fib: Code(s): I48.0 - Paroxysmal atrial fibrillation Plan: Continues on anticoagulation without a reports of overt bleeding. Denies any recent episodes of heart palpitations. (6) CHF (congestive heart failure), NYHA class II: Code(s): I50.9 - Heart failure, unspecified Qualifiers: Congestive heart failure type: diastolic Congestive heart failure chronicity: chronic Qualified Code(s): I50.32 - Chronic diastolic (congestive) heart failure Plan: Patient appears euvolemic on physical exam today. Continues on furosemide 40 mg b.i.d. (7) Obese: Code(s): E66.9 - Obesity, unspecified Qualifiers: Obesity type: due to excess calories Obesity classification: adult class 1 (BMI 30 - 34.9) Serious obesity comorbidity presence: with serious comorbidity Body mass index: BMI 34.0-34.9 Qualified Code(s): E66.09 - Other obesity due to excess calories; Z68.34 - Body mass index [BMI] 34.0-34.9, adult Plan: Patient does understand her BMI is over 30, has not been able to be physically active due to her multiple comorbidities. Will try to work on better eating habits to reduce weight. (8) Cervical spine disease: Code(s): M48.9 - Spondylopathy, unspecified Plan: She does have some decreased range of motion of her cervical spine due to pain and stiffness and muscle tension. She is interested in establishing care with [facility] pain management for possible trigger point injections. Orders: Orders Comprehensive [place]. Panel Fast Today E11.65 - Type 2 diabetes mellitus with hyperglycemia Complete Blood Count no Diff Today E11.65 - Type 2 diabetes mellitus with hyperglycemia Lipid Panel Today I50.32 - Chronic diastolic (congestive) heart failure NT-proBNP Today I50.32 - Chronic diastolic (congestive) heart failure AMB Hemoglobin A1c Today E11.9 - Type 2 diabetes mellitus without complications Influenza [id number] Immunization Today E11.9 - Type 2 diabetes mellitus without complications, Z23 - Encounter for immunization Referrals Pain Management Referral M48.9 - Spondylopathy, unspecified Podiatry Referral E11.65 - Type 2 diabetes mellitus with hyperglycemia Medications: New cyclobenzaprine 10 mg PO TID 30 days 90 tabs 3RF M48.9 - Spondylopathy, unspecified Coding Level of Care Code Est Pt Level 4 (62483) Diagnoses Essential hypertension I10 Hypertension type: essential hypertension Type 2 diabetes mellitus with hyperglycemia, without long-term current use of insulin E11.65 Diabetes mellitus fdc insulin use: without fdc use Diabetes mellitus complication status: with hyperglycemia Failed back syndrome M96.1 Uncomplicated opioid dependence F11.20 Substance use status: uncomplicated Paroxysmal A-fib I48.0 Chronic diastolic congestive heart failure, NYHA class 2 I50.32 Congestive heart failure type: diastolic Congestive heart failure chronicity: chronic Class 1 obesity due to excess calories with serious comorbidity and body mass index (BMI) of 34.0 to 34.9 in adult E66.09; Z68.34 Obesity type: due to excess calories Obesity classification: adult class 1 (BMI 30 - 34.9) Serious obesity comorbidity presence: with serious comorbidity Body mass index: BMI 34.0-34.9 Cervical spine disease M48.9 Additional Codes CADEN-7 Assessment Billing - CADEN-7 Assessment Tool: CADEN-7 Assessment [id number] ([id number])
[2023-04-17 14:29] VITALS: BP 130/72; PULSE 94; RESP 17; O2SAT 93; BMI 34.4
== END 2023-04-17 15:03 | disposition home or self-care (01) ==
PROVIDERS: PCP Physician Assistant; Visit Provider Physician Assistant
DX: Z23 Encounter for immunization (principal); I11.0 Hypertensive heart disease with heart failure; I50.32 Chronic diastolic (congestive) heart failure; E11.65 Type 2 diabetes mellitus with hyperglycemia; M96.1 Postlaminectomy syndrome, not elsewhere classified; F11.20 Opioid dependence, uncomplicated; I48.0 Paroxysmal atrial fibrillation; M48.9 Spondylopathy, unspecified
CPT/HCPCS: 83036; 90471; 90686; 99214

== ENCOUNTER 2023-04-24 14:38 | Outpatient (AMB) | payer MEDICARE, SELFPAY ==
--- NOTE | 2023-04-24 14:55 | MHC.OFFVIS ---
Intake Vital Signs 04/24/23 14:56 Height 5 ft 3 in Weight 194 lb 3 oz BMI 34.4 BP 164/73 H Blood Pressure Location Lt brachial Position Sitting Respiration 18 Pulse 111 H Pulse Source Pulse Oximeter Pulse Oximetry (%) 95 Oxygen Delivery Method Room Air Intake Visit Reasons: Spondylopathy, unspecified/confirmed Allergies aspirin [Aspirin] Allergy (Mild, Verified 04/24/23 14:57) NAUSEA codeine [Codeine] Allergy (Mild, Verified 04/24/23 14:57) VOMITING HPI HPI Comments History of Present Illness Details Ellen is a very pleasant 77 year old female who presents to the office today for evaluation and management of her chronic neck and back pain. She reports years of pain, s/p surgery to neck and back 5-10 years ago with pain since. She [place] [facility] [place], was on chronic opioid contract but was recently tapered off after UDS positive for cocaine. Patient has not attended PT recently. She utilizes a rollator walker. Pain is worse with walking, standing, sitting. She rates pain today as 10/10. Trigger point injections in the past were somewhat helpful, but she has since been started on Eliquis for AFIB. Imaging [place] [facility] [place] records have been requested. She takes gabapentin with no relief. Recently started on Flexeril TID by her PCP but states she has not noticed any benefit yet. Patient denies upper or lower extremity weakness, numbness or tingling. She denies red flag symptoms including new loss of bowel, bladder or saddle anesthesia. In terms of muscle damage condition is described as aching, spasming, shooting, dull, tiring, stabbing, sharp, cramping, squeezing and throbbing. Pain is negatively impacting patients enjoyment of life, general activity, normal work, recreational activities, sleep and walking. PMH significant for AFIB on eliquis, CHF, COPD, DM, opiate dependence, GERD, Failed back syndrome, osteoarthritis, obesity. [facility] Medical History (Updated 04/24/23 @ 15:17 by Starr Fernandez APRN, [employer] DIRECTOR) Cough Hypoventilation syndrome Skin cancer of trunk Skin cancer of face COPD (chronic obstructive pulmonary disease) Failed back syndrome Surgical History History of knee surgery History of shoulder surgery History of ankle surgery History of hip surgery Family History Father No problems noted. Mother No problems noted. Daughter Opiate dependence Substance use disorder Family/Other FH: mental illness Mental health disorder Social History Housing: Assisted Living Facility Alcohol intake: never Patient Tobacco Use Status: Former Tobacco user Tobacco use type: Cigarette e-Cigarette/Vaping Use: Never Used service: No Current occupational status: retired and disabled Cognitive needs: Yes Hearing needs: No Vision needs: Yes Review of Systems Const All systems reviewed & are unremarkable except as noted in HPI and below Physical Exam Vital Signs: Last Vital Signs Pulse 111 H 04/24/23 14:56 Resp 18 04/24/23 14:56 BP 164/73 H 04/24/23 14:56 Pulse Ox 95 04/24/23 14:56 Oxygen Delivery Method Room Air 04/24/23 14:56 BMI result Body Mass Index 34.4 General: awake, alert, oriented. Answers questions appropriately. Fully engaged in examination. Skin: warm, dry, intact. well healed surgical incisions cervical and lumber spine HEENT: Normocephalic. Hearing intact. Cardiac: External chest normal in appearance. Respiratory: No cough, audible wheezing or stridor. Abdomen: without gross distension. MS: No obvious swelling or deformities. Able to transition from sit to stand unassisted. Ambulates with bilaterally normal heel strike and toe off Tender to palpation across upper and lower back. Tenderness to midline cervical and lumbar vertebrae BLE 5/5 Cervical ROM limited in all planes Lumbar ROM limited, pain increase worse with forward flexion SLR with and without dorsiflexion negative bilaterally Neurological: Oriented to person, place, time and situation. Thought process intact. Psychiatric: Appropriate mood and affect. Good judgment and insight. Assessment & Plan Assessment & Plan (1) Opiate dependence: Comment: She has had opiates dependence for many years for her chronic back pain/ failed back surgeries in the past. Code(s): F11.20 - Opioid dependence, uncomplicated Qualifiers: Substance use status: uncomplicated Qualified Code(s): F11.20 - Opioid dependence, uncomplicated (2) Failed back syndrome: Comment: THIS KEEPS HER SEVERELY IMPAIRED AND DEBILITATED. Code(s): M96.1 - Postlaminectomy syndrome, not elsewhere classified (3) Cervical spondylosis: Code(s): M47.812 - Spondylosis without myelopathy or radiculopathy, cervical region (4) Myofascial muscle pain: Code(s): M79.18 - Myalgia, other site Plan Ellen is a very pleasant 77 year old female who presents to the office today for evaluation and management of her chronic neck and back pain. Patient requesting trigger point injections, she was advised that given her current use of Eliquis we are not able to provide this service to her today. MRI results have been requested from [facility], review pending. Order placed for [facility] eval and treat. 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 C/W meds as prescribed by pcp. Discussed options for treatment with permanent neuromodulation. Informational pamphlets provided. Patient aware that she would need psych clearance thru [facility] as well as medical clearance from cardiology and pulmonology. Eliquis would need to be held for procedure. She would like to proceed with plan for SCS trial with [facility] and will discuss further with her daughter. All questions and concerns have been answered and patient agrees with the plan. Follow up after [facility] evaluation, sooner if needed. Orders: [facility]errals [facility] Referral M47.812 - Spondylosis without myelopathy or radiculopathy, cervical region, M79.18 - Myalgia, other site, M96.1 - Postlaminectomy syndrome, not elsewhere classified Coding Level of Care Code New Pt Level 4 (47807) Diagnoses Uncomplicated opioid dependence F11.20 Substance use status: uncomplicated Failed back syndrome M96.1 Cervical spondylosis M47.812 Myofascial muscle pain M79.18
[2023-04-24 14:56] VITALS: BP 164/73; PULSE 111; RESP 18; O2SAT 95; BMI 34.4
== END 2023-04-24 15:13 | disposition home or self-care (01) ==
PROVIDERS: PCP Physician Assistant; Referring Provider Physician Assistant; Visit Provider Registered Nurse Emergency
DX: M96.1 Postlaminectomy syndrome, not elsewhere classified (principal); M47.812 Spondylosis without myelopathy or radiculopathy, cervical region; M79.18 Myalgia, other site; Z79.891 Long term (current) use of opiate analgesic
CPT/HCPCS: 99204

== ENCOUNTER → 2023-04-24 14:38 | Outpatient (BNVA) | payer MEDICARE, SELFPAY | PROVIDERS: PCP Physician Assistant; Referring Provider Physician Assistant; Visit Provider Registered Nurse Emergency | DX: F11.20 Opioid dependence, uncomplicated (principal); M96.1 Postlaminectomy syndrome, not elsewhere classified; M47.812 Spondylosis without myelopathy or radiculopathy, cervical region; M79.18 Myalgia, other site | CPT/HCPCS: 99202 ==

== ENCOUNTER 2023-07-25 01:06 | Inpatient (IN) | payer OTHER, SELFPAY ==
[2023-07-25] VITALS (12 sets, daily range): BP systolic 117–170; BP diastolic 64–91; PULSE 82–124; RESP 14–24; TEMP 36–37.7; O2SAT 76–98; BMI 35.4
--- NOTE | ~2023-07-25 | XR_ITS ---
EXAMINATION: XR CHEST CLINICAL INFORMATION: Cough. COMPARISON: None available. TECHNIQUE: Frontal view of the chest was obtained. FINDINGS: The lung volumes are low. The cardiomediastinal silhouette is within normal limits. There is apparent bronchial thickening and perihilar increased markings extending to the lung bases. There is no definitive focal consolidation or pleural effusion. There is no acute osseous or soft tissue abnormality. XR/XR chest 1V IMPRESSION: Apparent bronchial thickening and increased perihilar markings which may be due to low lung volumes. Change related to bronchitis could have this appearance. There is no definitive focal consolidation or pleural effusion.
--- NOTE | 2023-07-25 01:14 | ECG_ITS ---
Test Reason : AFIB Blood Pressure : / mmHG Vent. Rate : 119 BPM Atrial Rate : 119 BPM P-R Int : 184 ms QRS Dur : 096 ms QT Int : 312 ms P-R-T Axes : 038 -04 065 degrees QTc Int : 438 ms Sinus tachycardia Otherwise normal ECG When compared with ECG of 07-JUN-2020 00:11, [place] interval has decreased Vent. rate has increased BY 42 BPM Referred By: Viviana Andino Electronically Signed By:Naldo Moncada
--- NOTE | 2023-07-25 01:40 | ED_ITS ---
HPI - SOB/Dyspnea General Chief Complaint: Altered Mental Status Stated Complaint: AMS LOW O2 Time Seen by Provider: 07/25/23 01:13 Source: family and EMS Mode of arrival: EMS History of Present Illness HPI Narrative: 78-year-old female arrives via EMS with altered mental status and hypoxia with a known history of CHF/COPD/diabetes patient does not provide much history and is noted to be vomiting up mucus material Related Data Home Medications Medication Instructions Recorded Confirmed lactulose 10 gram/15 mL oral 15 ml PO DAILY PRN constipation 06/18/20 04/17/23 solution naloxone 4 mg/actuation nasal spray 0 spray intranasal DAILY 06/18/20 04/17/23 topiramate 200 mg tablet 200 mg PO BID 06/18/20 04/17/23 misoprostol 100 mcg tablet 100 mcg PO TID 12/07/20 04/17/23 fluticasone furoate 200 1 ea inhalation DAILY 02/09/22 04/17/23 mcg-vilanterol 25 mcg/dose inhalation powder (Breo Ellipta) Previous Rx's Medication Instructions Recorded miscellaneous medical supply 1 ea miscellaneous DAILY 99 days 11/17/21 #1 ea miscellaneous medical supply 1 ea miscellaneous DAILY 99 days 11/21/21 #2 ea blood sugar diagnostic (OneTouch #3 boxes 01/11/22 Ultra Test strips) blood-glucose meter (OneTouch #1 ea 01/11/22 Ultra2 Meter kit) lancets (OneTouch UltraSoft #3 boxes 01/11/22 Lancets) lidocaine 5 % topical ointment 1 appl topical DAILY 30 days #30 01/11/22 grams meclizine 12.5 mg tablet 12.5 mg PO TID PRN dizziness #30 01/11/22 tabs blood sugar diagnostic (FreeStyle #100 ea 03/09/22 Lite Strips) blood-glucose meter (FreeStyle #1 ea 03/09/22 Lite Meter kit) lancets 28 gauge (FreeStyle #100 ea 03/09/22 Lancets) allopurinol 300 mg tablet 150 mg (1/2 x 300 mg) PO DAILY #45 05/29/22 tabs flash glucose scanning reader #1 ea 05/29/22 (FreeStyle Sinan 2 [place]) flash glucose sensor (FreeStyle #1 ea 05/29/22 Sinan 2 Sensor kit) sennosides 8.6 mg tablet (Senna 17.2 mg (2 x 8.6 mg) PO BEDTIME 06/05/22 Lax) PRN constipation 30 days #60 tabs tiotropium bromide 18 mcg capsule 1 cap inhalation DAILY 30 days #30 07/04/22 with inhalation device (Spiriva inhalations with HandiHaler) theophylline 200 mg 200 mg PO Q12H ASTHMA/COPD 30 days 08/23/22 capsule,extended release 24 hr #60 caps diltiazem HCl 240 mg 240 mg PO DAILY 90 days #90 caps 11/23/22 capsule,extended release [address] bed #1 ea 12/06/22 metoprolol tartrate 25 mg tablet 25 mg PO TID 90 days #270 tabs 12/21/22 paroxetine HCl 20 mg tablet 20 mg PO QAM #90 tabs 01/22/23 furosemide 40 mg tablet 40 mg PO BID #180 tabs 02/13/23 ipratropium 0.5 mg-albuterol 3 mg 3 ml inhalation Q6H PRN shortness 03/20/23 (2.5 mg base)/3 mL nebulization of breath or wheezing #180 mL soln acetaminophen 500 mg capsule 500 mg PO Q6H PRN fever 30 days 03/29/23 #120 caps pen needle, diabetic 32 gauge x #50 ea 03/29/23 (BD Ultra-Fine Tamia Pen Needle) alcohol swabs (Alcohol Prep Pads) 1 pad topical TID 90 days #200 ea 05/01/23 docusate sodium 100 mg capsule 100 mg PO BID PRN constipation #60 05/01/23 caps famotidine 20 mg tablet 20 mg PO DAILY 90 days #90 tabs 05/01/23 insulin glargine 100 unit/mL (3 20 unit (0.2 mL) subcut QAM #15 mL 05/01/23 mL) subcutaneous pen insulin lispro 100 unit/mL 15 unit (0.15 mL) subcut TID #15 mL 05/01/23 subcutaneous pen (Admelog SoloStar U-100 Insulin lispro) apixaban 5 mg tablet (Eliquis) 5 mg PO BID 30 days #60 tabs 06/12/23 cyclobenzaprine 10 mg tablet 10 mg PO TID 30 days #90 tabs 06/18/23 gabapentin 300 mg capsule 300 mg PO TID 90 days #270 caps 06/18/23 albuterol sulfate 90 mcg/actuation 2 puff PO Q4-6H PRN for wheezing 07/16/23 aerosol inhaler #18 ea Allergies Allergy/AdvReac Type Severity Reaction Status Date / Time aspirin [Aspirin] Allergy Mild NAUSEA Verified 04/24/23 14:57 codeine [Codeine] Allergy Mild VOMITING Verified 04/24/23 14:57 Review of Systems 2 Review of Systems: Pertinent positives and negatives as stated in HPI [facility] Past Medical History Source: nursing notes reviewed Medical History Cough Hypoventilation syndrome Skin cancer of trunk Skin cancer of face COPD (chronic obstructive pulmonary disease) Failed back syndrome Surgical History History of knee surgery History of shoulder surgery History of ankle surgery History of hip surgery Family History Family History Father No problems noted. Mother No problems noted. Daughter Opiate dependence Substance use disorder Family/Other FH: mental illness Mental health disorder Social History Social History Housing: Assisted Living Facility Unable to assess alcohol history related to: Unknown Alcohol intake: never Patient Tobacco Use Status: Former Tobacco user Tobacco use type: Cigarette e-Cigarette/Vaping Use: Never Used Use of substances other than those prescribed or required for medical reasons: Unknown Advance Directives: No Advance Directives Information Provided: Yes service: No Current occupational status: retired and disabled Cognitive needs: Yes Hearing needs: No Vision needs: Yes Physical Exam 2 Vital Signs: Vital Signs: Last Vital Signs Temp 99.9 F 07/25/23 01:39 Pulse 106 H 07/25/23 01:48 Resp 14 07/25/23 01:48 BP 155/76 H 07/25/23 01:39 Pulse Ox 92 07/25/23 01:44 O2 Del Method Nasal Cannula 07/25/23 01:44 O2 Flow Rate 4 07/25/23 01:44 BMI result Body Mass Index 35.4 VITAL SIGNS: Reviewed. GENERAL: Well developed, well nourished, in no acute distress. HEAD: Normocephalic/atraumatic EYES: PERRLA, EOMI EARS: Ext canals without abnormality NOSE: Nares patent bilateral OROPHARYNX: no oral lesions noted, posterior pharynx clear NECK: Supple, no adenopathy LUNGS: Decreased breath sounds bilaterally, coarse breath sounds on right. CARDIOVASCULAR: Regular rate and rhythm without noted murmurs, no JVD or lower extremity edema. ABDOMEN: Soft, non-tender, non-distended with bowel sounds. MUSCULOSKELETAL: No tenderness, deformities, or effusions noted on gross inspection. EXTREMITIES: No cyanosis, clubbing or edema. SKIN: Inspection of the skin reveals no rashes NEUROLOGIC: Alert and oriented x 2. Strength and sensation to light touch were grossly intact x 4. Medications Administered Discontinued Medications Generic Name Dose Route Start Last Admin Trade Name Freq PRN Reason Stop Dose Admin Albuterol/Ipratropium 3 ml 07/25/23 01:42 07/25/23 01:48 Albuterol/Iprat 2.5/0.5mg 3 Ml Ampul.Neb INHALE 07/25/23 01:43 3 ml ONCE ONE Administration Piperacillin Sod/Tazobactam 50 mls @ 100 mls/hr 07/25/23 02:19 07/25/23 02:37 Sod 3.375 gm/ Sodium Chloride IV 07/25/23 02:48 100 mls/hr ONCE ONE Administration Methylprednisolone Sodium Succinate 125 mg 07/25/23 02:19 07/25/23 02:37 Methylprednisolone Sod Succ 125 Mg/2 Ml Vial IVPUSH 07/25/23 02:20 125 mg ONCE ONE Administration Medical Decision Making Medical Decision Making [facility] Narrative: 0115: 38-year-old female with history and clinical presentation, DDX: Pneumonia, viral illness, COPD, CHF. Starting patient on ED bronch protocol with IV steroids and supplemental oxygen, patient also received antibiotics as well as nebulized treatments. I reviewed all investigations and hematologic indices negative for leukocytosis but there is an noted left shift without anemia or thrombocytopenia. Coagulation studies mildly elevated. VBG does demonstrate mild hypercapnia without overt respiratory acidosis. Chemistry and disease do not demonstrate TIMO or electrolyte/liver enzyme derangements other than a chronically elevated alkaline phosphatase. BNP-80. Viral testing is negative for COVID- 19/influenza. Chest x-ray consistent with bronchial thickening and increased perihilar markings 0253: I discussed case with inpatient hospitalist who accepts admission. Differential Diagnosis Differential Diagnoses: The differential diagnosis associated with the presentation includes Please see the discussion above Admission/Observation Consideration of admission/observation: Escalation of care including admission/observation considered Please see the discussion above Consult Healthcare Provider Management of the patient was discussed with: Hospitalist Please see the discussion Lab Data MDM Lab Attestation statement: I reviewed the patient's lab results. Please see the discussion above 07/25/23 01:33 07/25/23 01:33 Labs: Lab Results 07/25/23 07/25/23 07/25/23 Range/Units 01:33 01:38 01:46 WBC 8.9 (4.8-10.8) X10*3/uL RBC 4.25 (4.20-5.50) X10*6/uL Hgb 13.2 (12.0-16.0) g/dl Hct 43.7 (37.0-47.0) % MCV 102.8 H (80.0-98.0) fL MCH 31.1 (27.0-33.0) pg MCHC 30.2 L (31.0-35.0) g/dl RDW 13.2 (11.0-16.0) % Plt Count 214 (160-400) X10*3/uL MPV 10.3 (9.4-12.3) fL Immature Gran % (Auto) 0.4 (0.0-0.4) % Neut % (Auto) 84.5 H (45-73) % Lymph % (Auto) 10.2 L (20-40) % [place] % (Auto) 4.7 (2-11) % Eos % (Auto) 0.0 (0-4) % Baso % (Auto) 0.2 (0-2) % Lymph # (Auto) 0.9 L (1.2-4.9) X10*3/uL [place] # (Auto) 0.4 (0.1-1.2) X10*3/uL Eos # (Auto) 0.0 (0.0-0.4) X10*3/uL Baso # (Auto) 0.0 (0.0-0.2) X10*3/uL Abs Immat Gran (auto) 0.04 H (0.00-0.03) X10*3/uL Absolute Neuts (auto) 7.5 (2.0-8.3) x10*3/uL Absolute Nucleated RBC 0.000 (0.0-0.012) X10*3/uL Nucleated RBC % (auto) 0.0 (0.0-0.2) /100WBC PT 14.0 H (11.1-13.3) SEC INR 1.2 H (0.9-1.1) VBG pH 7.38 (7.32-7.43) VBG pCO2 56 mmHg VBG pO2 95 mmHg VBG HCO3 34 H (22-26) mmol/L VBG O2 Saturation 99.0 % VBG Base Excess 7.1 mmol/L Sodium 143 (135-145) mmol/L Potassium 4.7 (3.3-5.1) mmol/L Chloride 103 (96-108) mmol/L Carbon Dioxide 30 H (22-29) mmol/L Anion Gap 15 (12-20) BUN 24 H (9-16) mg/dL Creatinine 0.89 (0.5-1.4) mg/dL Estim Creat Clear Calc 52.7 Estimated GFR > 60 Random Glucose 209 H (60-115) mg/dL Lactic Acid 0.8 (0.5-2.0) mmol/L Calcium 9.3 (8.4-10.2) mg/dL Total Bilirubin 0.3 (0.0-1.0) mg/dL AST 20 (5-31) U/L ALT 11 (0-31) U/L Alkaline Phosphatase 148 H (39-117) U/L B-Natriuretic Peptide 80 (<100) pg/mL Total Protein 8.1 H (6.5-8.0) g/dL Albumin 4.0 (3.5-5.0) g/dL COVID-19 (STU) Negative (Negative) COVID-19 Clin Com See Note Influenza Type A (MONE) Negative (Negative) Influenza Type B (MONE) Negative (Negative) Influenza A & B Note See Note Independent Interpretation I performed an independent interpretation of an: EKG Interpretation: Sinus tachycardia, HR-119, no STEMI, VA/QRS/QTC is within normal limits. Radiology Impression Discussion of test interpretation with radiology: I have reviewed the radiologist's reading. Radiologist Impression: Please see the discussion above External Record Review External record reviewed: Outpatient record, Prior outpatient labs and Prior outpatient radiology Chronic Conditions Patient?s care impacted by: Diabetes COPD Critical Care Time Critical Care Time Critical Care Time: Yes Total Critical Care Time: 60 Attestation: I personally attest to this time spent taking care of the patient. Discharge Plan Discharge Clinical Impression: Acute respiratory failure, COPD exacerbation, Bronchitis Patient Disposition: Admitted As Inpatient
[2023-07-25 01:45] LABS: MANUAL DIFF FLAG NO
[2023-07-25 01:47] LABS: Basophils Percent Auto 0.2 % (0-2); Hematocrit 43.7 % (37.0-47.0); Hemoglobin 13.2 g/dl (12.0-16.0); Imm Gran Abs Auto 0.04 X10*3/uL (0.00-0.03); Imm Gran Pct Auto 0.4 % (0.0-0.4); Lymphocytes Absolute Auto 0.9 X10*3/uL (1.2-4.9); Lymphocytes Percent Auto 10.2 % (20-40); Mean Corpuscular HGB Conc 30.2 g/dl (31.0-35.0); Mean Corpuscular Hemoglobin 31.1 pg (27.0-33.0); Mean Corpuscular Volume 102.8 fL (80.0-98.0); Mean Platelet Volume 10.3 fL (9.4-12.3); Monocytes Absolute Auto 0.4 X10*3/uL (0.1-1.2); Monocytes Percent Auto 4.7 % (2-11); Neutrophils Absolute Auto 7.5 x10*3/uL (2.0-8.3); Neutrophils Percent Auto 84.5 % (45-73); Platelet Count 214 X10*3/uL (160-400); Red Blood Count 4.25 X10*6/uL (4.20-5.50); Red Cell Distribution Width 13.2 % (11.0-16.0); White Blood Count 8.9 X10*3/uL (4.8-10.8)
[2023-07-25] MEDS: Albuterol/Iprat 2.5/0.5MG 3 ML AMPUL.NEB INHALE ×5 (01:48→19:20)
[2023-07-25 01:52] LABS: VBG Base Excess 7.1 mmol/L; VBG HCO3 34 mmol/L (22-26); VBG pCO2 56 mmHg; VBG pH 7.38 (7.32-7.43); VBG pO2 95 mmHg
[2023-07-25 01:53] LABS: Venous Blood Gas Refer to POC result
[2023-07-25 01:55] LABS: INTERNATIONAL NORM RATIO 1.2 (0.9-1.1)
[2023-07-25 01:57] LABS: Lactic Acid 0.8 mmol/L (0.5-2.0)
[2023-07-25 01:58] LABS: COVID-19 Test Negative (Negative); IDNOW Serial# 9DB6401D; Influenza A Negative (Negative); Influenza B2 Negative (Negative)
[2023-07-25 02:02] LABS: Alanine Aminotransferase 11 U/L (0-31); Alkaline Phosphatase 148 U/L (39-117); Anion Gap 15 (12-20); Aspartate Amino Transferase 20 U/L (5-31); Bilirubin Total 0.3 mg/dL (0.0-1.0); Blood Urea Nitrogen 24 mg/dL (9-16); Calcium 9.3 mg/dL (8.4-10.2); Carbon Dioxide 30 mmol/L (22-29); Chloride 103 mmol/L (96-108); Creatinine Clr Calc Pharmacy 52.7; Estimated Glomerular Filt Rate > 60; Glucose Random 209 mg/dL (60-115); Potassium 4.7 mmol/L (3.3-5.1); Sodium 143 mmol/L (135-145); Total Protein 8.1 g/dL (6.5-8.0)
[2023-07-25 02:14] LABS: B Type Natriuretic Peptide 80 pg/mL (<100)
[2023-07-25 02:15] LABS: IDNOW Serial# 6674DD1D
[2023-07-25] MEDS: methylPREDNISolone Sod Succ 125 MG/2 ML VIAL IVPUSH (02:37)
[2023-07-25] MEDS: Piperacillin Sodium/Tazobactam 3.375 GM in 0.9 % Sodium Chloride 50 ML IV (02:37)
--- NOTE | 2023-07-25 04:06 | P.HPHOSP_ITS ---
History of Present Illness Date of Service: 07/25/23 Chief Complaint: Altered mentation This is a 78-year-old female with pertinent history of paroxysmal atrial fibrillation on Eliquis, COPD not on home oxygen, gout, congestive heart failure unspecified EF, gout, insulin-dependent diabetes mellitus who was sent to the emergency department for evaluation of altered mentation. Unable to obtain history from the patient. History obtained from ER provider and chart review. Patient is awake and moaning upon evaluation. Not following commands or answering questions. Not conversational. She was found to be hypoxemic on room air and placed on supplemental oxygen. Patient was also given IV steroids and DuoNeb treatments in the ER. Unable to obtain review of systems. Review of Systems 2 Review of Systems: Yes Unobtainable due to mental status [facility] History Cough Hypoventilation syndrome Skin cancer of trunk Skin cancer of face COPD (chronic obstructive pulmonary disease) Failed back syndrome Family History Father No problems noted. Mother No problems noted. Daughter Opiate dependence Substance use disorder Family/Other FH: mental illness Mental health disorder Surgical History History of knee surgery History of shoulder surgery History of ankle surgery History of hip surgery Social History Housing: Assisted Living Facility Unable to assess alcohol history related to: Unknown Alcohol intake: never Patient Tobacco Use Status: Former Tobacco user Tobacco use type: Cigarette e-Cigarette/Vaping Use: Never Used Use of substances other than those prescribed or required for medical reasons: Unknown Advance Directives: No Advance Directives Information Provided: Yes Nutrition Risks: No Nutritional Risk service: No Current occupational status: retired and disabled Cognitive needs: Yes Hearing needs: No Vision needs: Yes Meds Allergies Allergy/AdvReac Type Severity Reaction Status Date / Time aspirin [Aspirin] Allergy Mild NAUSEA Verified 04/24/23 14:57 codeine [Codeine] Allergy Mild VOMITING Verified 04/24/23 14:57 Home Medications Medication Instructions Recorded Confirmed Last Taken Type lactulose 10 gram/15 mL oral 15 ml PO DAILY PRN constipation 06/18/20 04/17/23 Unknown History solution naloxone 4 mg/actuation nasal spray 0 spray intranasal DAILY 06/18/20 04/17/23 Unknown History topiramate 200 mg tablet 200 mg PO BID 06/18/20 04/17/23 Unknown History misoprostol 100 mcg tablet 100 mcg PO TID 12/07/20 04/17/23 Unknown History fluticasone furoate 200 1 ea inhalation DAILY 02/09/22 04/17/23 Unknown History mcg-vilanterol 25 mcg/dose inhalation powder (Breo Ellipta) Physical Exam 2 Vital Signs and Narrative: Vital Signs: Last Vital Signs Temp 99.9 F 07/25/23 01:39 Pulse 106 H 07/25/23 01:48 Resp 14 07/25/23 01:48 BP 155/76 H 07/25/23 01:39 Pulse Ox 92 07/25/23 01:44 O2 Del Method Nasal Cannula 07/25/23 01:44 O2 Flow Rate 4 07/25/23 01:44 BMI result Body Mass Index 35.4 Elderly female lying in bed in mild distress on supplemental oxygen Neck supple Tachycardic with regular rhythm Bilateral wheezing with tachypnea Abdomen soft, nontender Patient is awake and alert but non conversational, only moaning, not responding to questions, not following commands Results Labs 07/25/23 01:33 07/25/23 01:33 Labs: Laboratory Results - last 24 hr 07/25/23 07/25/23 07/25/23 01:33 01:38 01:46 MCV 102.8 H MCH 31.1 MCHC 30.2 L RDW 13.2 Plt Count 214 MPV 10.3 Immature Gran % (Auto) 0.4 Neut % (Auto) 84.5 H Lymph % (Auto) 10.2 L [place] % (Auto) 4.7 Eos % (Auto) 0.0 Baso % (Auto) 0.2 Lymph # (Auto) 0.9 L [place] # (Auto) 0.4 Eos # (Auto) 0.0 Baso # (Auto) 0.0 Abs Immat Gran (auto) 0.04 H Absolute Neuts (auto) 7.5 Absolute Nucleated RBC 0.000 Nucleated RBC % (auto) 0.0 PT 14.0 H INR 1.2 H VBG pH 7.38 VBG pCO2 56 VBG pO2 95 VBG HCO3 34 H VBG O2 Saturation 99.0 VBG Base Excess 7.1 Anion Gap 15 Estim Creat Clear Calc 52.7 Estimated GFR > 60 Random Glucose 209 H Lactic Acid 0.8 Calcium 9.3 Total Bilirubin 0.3 AST 20 ALT 11 Alkaline Phosphatase 148 H B-Natriuretic Peptide 80 Total Protein 8.1 H Albumin 4.0 COVID-19 (STU) Negative COVID-19 Clin Com See Note Influenza Type A (MONE) Negative Influenza Type B (MONE) Negative Influenza A & B Note See Note Imaging Radiologist's Impressions: Impressions Chest X-Ray 07/25/23 01:55 IMPRESSION: Apparent bronchial thickening and increased perihilar markings which may be due to low lung volumes. Change related to bronchitis could have this appearance. There is no definitive focal consolidation or pleural effusion. Assessment and Plan (1) Acute respiratory failure: Status: Acute Plan This is a 78-year-old female with pertinent history of paroxysmal atrial fibrillation on Eliquis, COPD not on home oxygen, gout, congestive heart failure unspecified EF, gout, insulin-dependent diabetes mellitus who was sent to the emergency department for evaluation of altered mentation. #. Acute hypoxemic respiratory failure secondary to acute exacerbation of COPD: Will admit patient with supplemental oxygen. Initiating systemic steroids, scheduled and p.r.n. DuoNebs. Monitor supplemental oxygen and wean as tolerated. Continue home inhaler #. Acute metabolic encephalopathy in the setting of above: Monitor mentation, unclear baseline. Will keep patient NPO until mentation improves #. Insulin-dependent diabetes mellitus with hyperglycemia: Initiating basal plus insulin regimen #. Paroxysmal atrial fibrillation: Patient on Eliquis, switched to therapeutic Lovenox if continues to be NPO #. Gout: On allopurinol #. Congestive heart failure, unspecified EF: No decompensation during admission DVT prophylaxis: Eliquis Full code. Readdress with daughter in a.m. Admit as inpatient and will require two night minimum hospital stay for supplemental oxygen (as above), which is not possible in a lesser acute setting. Quality Stroke Does the patient have a stroke diagnosis?: No VTE Prior VTE?: No VTE Risk Level:: Medical - moderate - high VTE Device Contraindication: Treatment Not Indicated VTE Drug Contraindication: N/A - Med Ordered
[2023-07-25 06:26] LABS: Glucose, Whole Blood 224 mg/dL (60-115)
[2023-07-25] MEDS: Insulin Glargine,Hum.rec.anlog 100 UNIT/ML 10 ML VIAL 10 UNIT SUBCUT (06:28)
[2023-07-25] MEDS: Insulin Lispro 100 UNIT/ML 3 ML VIAL SUBCUT ×3 (06:28→20:18)
--- NOTE | 2023-07-25 06:42 | PC.NURSE ---
pt straight cath'd for urine sample - collected and sent to lab pt tolerated well. pt A&Ox2, unsure of baseline mentation. on telemetry monitor, wearing 4L O2 NC in no apparent distress. Pt NPO pending speech eval per MD Pal.
[2023-07-25 06:57] LABS: Basophils Percent Auto 0.2 % (0-2); Hematocrit 44.2 % (37.0-47.0); Hemoglobin 13.5 g/dl (12.0-16.0); Imm Gran Abs Auto 0.11 X10*3/uL (0.00-0.03); Imm Gran Pct Auto 1.3 % (0.0-0.4); Lymphocytes Absolute Auto 0.5 X10*3/uL (1.2-4.9); Lymphocytes Percent Auto 5.1 % (20-40); MANUAL DIFF FLAG SCAN; Mean Corpuscular HGB Conc 30.5 g/dl (31.0-35.0); Mean Corpuscular Volume 101.6 fL (80.0-98.0); Mean Platelet Volume 10.3 fL (9.4-12.3); Monocytes Percent Auto 0.3 % (2-11); Neutrophils Absolute Auto 8.2 x10*3/uL (2.0-8.3); Neutrophils Percent Auto 93.1 % (45-73); Platelet Count 193 X10*3/uL (160-400); Red Blood Count 4.35 X10*6/uL (4.20-5.50); Red Cell Distribution Width 13.1 % (11.0-16.0); SCAN SMEAR FLAG 1; White Blood Count 8.8 X10*3/uL (4.8-10.8)
[2023-07-25 07:06] LABS: Appearance Urine Clear; Color Urine Yellow; Glucose Urine UA Negative (Negative); Leukocyte Esterase Urine Negative (Negative); Nitrite Urine Negative (Negative); PH 5.5 (5.0-9.0); Specific Gravity - Urine 1.015 (1.005-1.025); Urine Blood Negative (Negative); Urine Ketones Negative (Negative); Urine Protein Trace mg/dL (Neg-Trace)
[2023-07-25 07:11] LABS: Anion Gap 14 (12-20); Blood Urea Nitrogen 21 mg/dL (9-16); Calcium 9.5 mg/dL (8.4-10.2); Carbon Dioxide 29 mmol/L (22-29); Chloride 104 mmol/L (96-108); Creatinine Clr Calc Pharmacy 54.5; Estimated Glomerular Filt Rate > 60; Glucose Random 241 mg/dL (60-115); Potassium 4.9 mmol/L (3.3-5.1); Sodium 142 mmol/L (135-145)
[2023-07-25 08:50] LABS: SLIDE REVIEW VERIFIED
[2023-07-25] MEDS: 0.9 % Sodium Chloride Flush 3 ML SYRINGE IVFLUSH ×2 (08:51→17:05)
[2023-07-25] MEDS: methylPREDNISolone Sod Succ 40 MG/ML VIAL IVPUSH ×2 (08:51→20:04)
--- NOTE | 2023-07-25 10:28 | PC.NURSE ---
This Rn resumed care at 0700, pt is alert to self. Pt continuing screaming help me I need water when staff is at bedside pt is not redirectable, staff attempting to provide emotional support. Pt placed on hospital bed at this time, hygeine care provided. This writer technical publications attempted to give pt water, to which she chugged down unsafely, was coughing after, pt given treatment by resp and suctioned for thick phlem. Provider contacted to ask for PRN medication for aaggitation, no new orders at this time, swallow eval placed.
--- NOTE | 2023-07-25 11:32 | PHA.MEDREC ---
Pharmacy Consult ? Medication Reconciliation Pharmacy has completed the medication reconciliation. Patient is not in clear state of mind to give any info, tried to call daughter twice but someone picked up and said wrong number , also tried to call home phone but no one picked up. Med rec was done according to pharmacy claim history (Dr. Dumont was made awared).
[2023-07-25 13:25] LABS: Glucose, Whole Blood 257 mg/dL (60-115)
[2023-07-25] MEDS: allopurinoL 300 MG TABLET 150 MG PO (13:43)
[2023-07-25] MEDS: Famotidine 20 MG TABLET PO (13:43)
[2023-07-25] MEDS: PARoxetine HCL 20 MG TABLET PO (13:43)
[2023-07-25] MEDS: dilTIAZem HCL CD 240 MG CAP.ER.DEG PO (13:43)
[2023-07-25] MEDS: Apixaban 5 MG TABLET PO ×2 (13:43→20:04)
[2023-07-25] MEDS: Gabapentin 300 MG CAPSULE PO ×2 (13:43→20:05)
[2023-07-25] MEDS: Metoprolol Tartrate 25 MG TABLET PO ×2 (13:43→20:05)
[2023-07-25] MEDS: Cyclobenzaprine HCl 10 MG TABLET PO ×2 (13:43→20:05)
[2023-07-25 16:20] LABS: Glucose, Whole Blood 214 mg/dL (60-115)
--- NOTE | 2023-07-25 17:52 | MHC.SL.SWA ---
Risk of Aspiration Due to: Reduced Cognition Dysphasia Diet Status: UPGRADE Liquid Consistency and Strategies for Safe Swallow: Liquid Intake Recommendation: Honey Thick Liquid Intake Strategies: Small Sips No Straws Solid Food Consistency: Dietary Recommendations: Grnd/Mech Altered (NDD2) Oral Medication Intake: Crushed with Puree Please contact the pharmacy regarding appropriate crushable or liquid drug formulations that are available whenever modified delivery is recommended. Compensatory Strategies and Precautions to be Taken for Safe Swallow: Sitting Upright (90 deg) No Straw Small Bites and Sips Alternate Liquids/Solids Rate of Ingestion Change Supervision While Eating and Drinking for Safe Swallow: Total Assistance (1:1) Recommendation for Speech: Comment: Recommend UPGRADE to HONEY THICK liquids (via tsp or controlled cup sip, NO STRAW) with GROUND solids (NDD2). Pills CRUSHED in PUREE when possible, otherwise whole in puree. Patient requires 1-1 assistance feeding and cues to take small sips. CASING PULLER will continue to follow. Cooking Appliance Repair Technician Clinican/Clinical Fellow: No Supervisory Statement: I have reviewed and agree with the student/clinical fellow's documentation: N/A Speech Language Pathologist: Bhakti Mims M.A., CCC-CASING PULLER
[2023-07-25] MEDS: Furosemide 40 MG TABLET PO (20:04)
[2023-07-25] MEDS: Melatonin 3 MG TABLET 6 MG PO (20:05)
[2023-07-25] MEDS: Acetaminophen 325 MG TABLET 650 MG PO (20:10)
[2023-07-25 20:31] LABS: Glucose, Whole Blood 295 mg/dL (60-115)
[2023-07-25] MEDS: Benzonatate 100 MG CAPSULE 200 MG PO (22:15)
[2023-07-26] VITALS (9 sets, daily range): BP systolic 106–146; BP diastolic 55–72; PULSE 66–89; RESP 14–18; TEMP 36–36.6; O2SAT 92–96
[2023-07-26] MEDS: 0.9 % Sodium Chloride Flush 3 ML SYRINGE IVFLUSH ×3 (00:27→15:37)
[2023-07-26 07:34] LABS: Glucose, Whole Blood 265 mg/dL (60-115)
[2023-07-26] MEDS: Insulin Glargine,Hum.rec.anlog 100 UNIT/ML 10 ML VIAL 20 UNIT SUBCUT (08:27)
[2023-07-26] MEDS: Insulin Lispro 100 UNIT/ML 3 ML VIAL SUBCUT ×4 (08:27→21:05)
[2023-07-26] MEDS: dilTIAZem HCL CD 240 MG CAP.ER.DEG PO (08:28)
[2023-07-26] MEDS: allopurinoL 300 MG TABLET 150 MG PO (08:28)
[2023-07-26] MEDS: methylPREDNISolone Sod Succ 40 MG/ML VIAL IVPUSH (08:28)
[2023-07-26] MEDS: Furosemide 40 MG TABLET PO ×2 (08:28→21:54)
[2023-07-26] MEDS: PARoxetine HCL 20 MG TABLET PO (08:28)
[2023-07-26] MEDS: Apixaban 5 MG TABLET PO ×2 (08:28→21:55)
[2023-07-26] MEDS: Cyclobenzaprine HCl 10 MG TABLET PO ×3 (08:29→21:54)
[2023-07-26] MEDS: Metoprolol Tartrate 25 MG TABLET PO ×3 (08:29→21:54)
[2023-07-26] MEDS: Famotidine 20 MG TABLET PO (08:29)
[2023-07-26] MEDS: Gabapentin 300 MG CAPSULE PO ×3 (08:29→21:53)
[2023-07-26] MEDS: Albuterol/Iprat 2.5/0.5MG 3 ML AMPUL.NEB INHALE ×3 (08:45→19:35)
[2023-07-26] MEDS: Acetaminophen 325 MG TABLET 650 MG PO (09:11)
--- NOTE | 2023-07-26 10:06 | P.PNIM_ITS ---
Subjective Subjective Date of Service: 07/26/23 Interval History: f/u on copd exacerbation, hypoxia and encephalopathy she is less confused. Still hypoxic and on O2, not on home O2 Physical Exam 2 Vital Signs: Vital Signs: Last Vital Signs Temp 97.8 F 07/26/23 07:24 Pulse 89 07/26/23 08:46 Resp 16 07/26/23 08:46 BP 119/72 07/26/23 07:24 Pulse Ox 92 07/26/23 07:24 O2 Del Method Nasal Cannula 07/26/23 07:24 O2 Flow Rate 2.0 07/26/23 07:24 BMI result Body Mass Index 35.4 General: AO X 3, no acute distress Resp: ex/insp wheeze, nl effort CVS: S1,S2,RRR GI: +BS, NT, no distention Skin: No rash Neuro: motor grossly intact Psych: appropriate affect Objective Data Active Medications Acetaminophen (Acetaminophen 325 Mg Tablet) 650 mg PO Q6H PRN PRN Reason: Pain, Mild (Pain Scale 1-3) Last Admin: 07/26/23 09:11 Dose: 650 mg Documented By: MONSE Albuterol Sulfate (Albuterol Sulfate 90 Mcg 8 Gm Inhaler) 2 puff INHALE Q4H PRN PRN Reason: for wheezing Albuterol/Ipratropium (Albuterol/Iprat 2.5/0.5mg 3 Ml Ampul.Neb) 3 ml INHALE RQ4H WHILE AWAKE [facility] Last Admin: 07/26/23 08:45 Dose: 3 ml Documented By: ADEOLA Albuterol/Ipratropium (Albuterol/Iprat 2.5/0.5mg 3 Ml Ampul.Neb) 3 ml INHALE Q4H PRN PRN Reason: Wheezing Albuterol/Ipratropium (Albuterol/Iprat 2.5/0.5mg 3 Ml Ampul.Neb) 3 ml INHALE Q6H PRN PRN Reason: shortness of breath or wheezing Allopurinol (Allopurinol 300 Mg Tablet) 150 mg PO DAILY [facility] Last Admin: 07/26/23 08:28 Dose: 150 mg Documented By: MONSE Apixaban (Apixaban 5 Mg Tablet) 5 mg PO BID [facility] Last Admin: 07/26/23 08:28 Dose: 5 mg Documented By: MONSE Benzonatate (Benzonatate 100 Mg Capsule) 200 mg PO TID PRN PRN Reason: Cough Last Admin: 07/25/23 22:15 Dose: 200 mg Documented By: SARIKA Cyclobenzaprine HCl (Cyclobenzaprine Hcl 10 Mg Tablet) 10 mg PO TID [facility] Last Admin: 07/26/23 08:29 Dose: 10 mg Documented By: MONSE Dextrose (Dextrose 50 % 25 Gm/50 Ml Syringe) 25 gm IVPUSH Q15M PRN; Protocol PRN Reason: per Hypoglycemia Standing Ord. Diltiazem HCl (Diltiazem Hcl Cd 240 Mg Cap.Er.Deg) 240 mg PO DAILY [facility]; Protocol Last Admin: 07/26/23 08:28 Dose: 240 mg Documented By: MONSE Docusate Sodium (Docusate Sodium 100 Mg Capsule) 100 mg PO BID PRN PRN Reason: constipation Famotidine (Famotidine 20 Mg Tablet) 20 mg PO DAILY [facility] Last Admin: 07/26/23 08:29 Dose: 20 mg Documented By: MONSE Furosemide (Furosemide 40 Mg Tablet) 40 mg PO BID [facility]; Protocol Last Admin: 07/26/23 08:28 Dose: 40 mg Documented By: MONSE Gabapentin (Gabapentin 300 Mg Capsule) 300 mg PO TID [facility] Last Admin: 07/26/23 08:29 Dose: 300 mg Documented By: MONSE Glucose (Glucose Gel 15 Gm Gel..Gram.) 15 gm PO Q15M PRN; Protocol PRN Reason: per Hypoglycemia Standing Ord. Insulin Glargine (Insulin Glargine,Hum.Rec.Anlog 100 Unit/Ml 10 Ml Vial) 20 unit SUBCUT DAILY [facility] Last Admin: 07/26/23 08:27 Dose: 20 unit Documented By: MONSE Insulin Human Lispro (Insulin Lispro 100 Unit/Ml 3 Ml Vial) 0 unit SUBCUT QIDACHS [facility]; Protocol Last Admin: 07/26/23 08:27 Dose: 6 unit Documented By: MONSE Melatonin (Melatonin 3 Mg Tablet) 6 mg PO BEDTIME PRN PRN Reason: Insomnia Last Admin: 07/25/23 20:05 Dose: 6 mg Documented By: SARIKA Methylprednisolone Sodium Succinate (Methylprednisolone Sod Succ 40 Mg/Ml Vial) 40 mg IVPUSH Q12H [facility] Last Admin: 07/26/23 08:28 Dose: 40 mg Documented By: MONSE Metoprolol Tartrate (Metoprolol Tartrate 25 Mg Tablet) 25 mg PO TID [facility]; Protocol Last Admin: 07/26/23 08:29 Dose: 25 mg Documented By: MONSE Ondansetron HCl (Ondansetron Hcl 4 Mg/2 Ml Vial) 4 mg IVPUSH Q8H PRN PRN Reason: Nausea and Vomiting Paroxetine HCl (Paroxetine Hcl 20 Mg Tablet) 20 mg PO DAILY [facility] Last Admin: 07/26/23 08:28 Dose: 20 mg Documented By: MONSE Sodium Chloride (0.9 % Sodium Chloride Flush 3 Ml Syringe) 3 ml IVFLUSH QSHIFT [facility] Last Admin: 07/26/23 08:29 Dose: 3 ml Documented By: MONSE Labs 07/25/23 06:42 07/25/23 06:42 Labs: Laboratory Results - last 24 hr 07/25/23 07/25/23 07/25/23 13:19 16:09 20:10 POC Glucose 257 H 214 H 295 H 07/26/23 07:30 POC Glucose 265 H Microbiology Microbiology Results: Microbiology 07/25/23 01:38 Blood Culture - Preliminary Blood - Venous No growth after 24 hours. 07/25/23 01:33 Blood Culture - Preliminary Blood - Venous No growth after 24 hours. Assessment and Plan (1) COPD exacerbation: Status: Acute (2) Acute respiratory failure: Status: Acute Plan This is a 78-year-old female with pertinent history of paroxysmal atrial fibrillation on Eliquis, COPD not on home oxygen, gout, congestive heart failure unspecified EF, gout, insulin-dependent diabetes mellitus who was sent to the emergency department for evaluation of altered mentation. Acute hypoxemic respiratory failure secondary to acute exacerbation of COPD -continue bronchodilators by Neb, IV steroid for one more day, wean O2, goal 88 to 92 Metabolic encephalopathy d/t hypoxia, resolved DM with hyperglycemia d/t steroid, steroid reduced, -Lantus + SSI, POCs PAF, rate controlled, continue eliquis, metoprolol and cardizem for rate control. Gout, allopurinol Congestive heart failure, unspecified EF: euvolemic, continue Lasix DVT prophylaxis: Mounika Full code. PT eval need for inpt: hypoxic resp failure d/t copd requiring Iv steroid, and titration of O2 Quality Stroke Does the patient have a stroke diagnosis?: No VTE Prior VTE?: No VTE Risk Level:: Medical - moderate - high VTE Device Contraindication: Treatment Not Indicated VTE Drug Contraindication: N/A - Med Ordered
--- NOTE | 2023-07-26 11:26 | MHC.CM.PN ---
IMM 07/26/23 Female 78 DX AMS Patient states that she lives alone. Her grandson stays with her overnight when she is having a tough day . Her daughter is her SOFT WATER MECHANIC hours provided not known. Patient uses a walker and shower bench. She does not have a HCP on file. A copy has been requested. The patient is a poor historian. A call was placed to her dtr, Sanjana Hazel; because t/w needed to confirm the patient's living situation ect. The number listed in the EMR does not belong to the patients dtr. CM will need to follow up with family. DP home resume SOFT WATER MECHANIC services. Patient will arrange for transportation home.
[2023-07-26 12:10] LABS: Glucose, Whole Blood 327 mg/dL (60-115)
--- NOTE | 2023-07-26 14:04 | MHC.SL.SWA ---
Speech Pathologist Impression: Risk of Aspiration Due to: Reduced Cognition Dysphasia Diet Status: It is recommended patient continue with HONEY THICK liquids by cup sip or spoon (no straws) and Ground Mechanical/Altered (NDD2), pills crushed in puree. At a minimum, patient requires direct supervision with assistance with opening up and preparing tray, and then monitor that patient is not ingesting food or liquid too quickly, or talking while eating, or exhibiting clinical signs of aspiration (coughing, increased upper airway noise, drop in O2 sats). Liquid Consistency and Strategies for Safe Swallow: Liquid Intake Recommendation: Honey Thick Liquid Intake Strategies: Small Sips No Straws Solid Food Consistency: Dietary Recommendations: Grnd/Mech Altered (NDD2) Additional Modifications to Solid Foods: Oral Medication Intake: Crushed with Puree Please contact the pharmacy regarding appropriate crushable or liquid drug formulations that are available whenever modified delivery is recommended. Compensatory Strategies and Precautions to be Taken for Safe Swallow: Sitting Upright (90 deg) No Straw Liquids from Cup Liquids from Spoon Small Bites and Sips Alternate Liquids/Solids Rate of Ingestion Change Supervision While Eating and Drinking for Safe Swallow: Total Supervision (1:1) Foods to Avoid: Swallowing Recommended Treatments: Compens. Strategy Educat. Recommendation for Speech: Comment: Patient was seen at lunch. Patient was alone in room, seated in chair beside bed, with lunch tray brought in. Patient had several cups of water on table beside her, when commented on needing thickened liquids, patient said don't take my water away! and stated that she was always thirsty and usually kept large jugs of water available to her throughout the day. TUBE CLEANER observed patient taking several sips of water, followed by immediate cough, and wet sounding vocal quality. Patient c/o cough was burp and the coughing helps me swallow. TUBE CLEANER set up tray on table in front of patient and removed all covers. Patient initially commented It's that gross food again! but then saw mashed potatoes and gravy and expressed approval. TUBE CLEANER assisted with preparing food with gravy and condiments. Patient was markedly talkative, complaining of having a cough for months which caused her to lose her voice. Patient's voice markedly hoarse, yet patient attempting to speak with ample volume. Patient also reported on previous barium swallow done by GI. Patient independently fed self spoonfuls of ground meat, mashed potatoes, and ground carrots. Patent produce a somewhat rapid oral phase, timely swallow. Patient noted to periodically burp after swallow, and intermittently cough, though not directly after swallow. Patient took cup sips of honey thick liquid, producing a timely oral phase, timely swallow, no coughing after swallow. All luis were removed from patient at bedside. It is recommended patient continue with HONEY THICK liquids by cup sip or spoon (no straws) and Ground Mechanical/Altered (NDD2), pills crushed in puree. At a minimum, patient requires direct supervision with assistance with opening up and preparing tray, and then monitor that patient is not ingesting food or liquid too quickly, or talking while eating, or exhibiting clinical signs of aspiration (coughing, increased upper airway noise, drop in O2 sats). Frequency/Duration: Date Range for Service Req: Timeline to reassess: Is/It Project Manager Clinican/Clinical Fellow: No Supervisory Statement: I have reviewed and agree with the student/clinical fellow's documentation: N/A Speech Language Pathologist: Davida Corcoran M.A., CCC-TUBE CLEANER
[2023-07-26] MEDS: vancomycin/NS 2,000 MG/500 ML PLAST..BAG 250 MG IV (15:37)
--- NOTE | 2023-07-26 15:50 | PC.NURSE ---
Redness under bilateral breast ,strong odor,redness under abdominal folds,Dr. rabago notified ,awaiting orders for Nystatin
[2023-07-26 16:09] LABS: Glucose, Whole Blood 221 mg/dL (60-115)
[2023-07-26 20:55] LABS: Glucose, Whole Blood 258 mg/dL (60-115)
[2023-07-26] MEDS: Nystatin Powder 15 GM BOTTLE 1 APPL TOPICAL (21:05)
[2023-07-26] MEDS: Melatonin 3 MG TABLET 6 MG PO (21:53)
[2023-07-27] VITALS (8 sets, daily range): BP systolic 93–146; BP diastolic 55–60; PULSE 61–70; RESP 18–22; TEMP 36.2–36.4; O2SAT 93–96
[2023-07-27] MEDS: 0.9 % Sodium Chloride Flush 3 ML SYRINGE IVFLUSH ×3 (01:14→20:42)
[2023-07-27 05:43] LABS: Estimated Glomerular Filt Rate 48
[2023-07-27 07:34] LABS: Glucose, Whole Blood 263 mg/dL (60-115)
--- NOTE | 2023-07-27 07:37 | HE.PHANOTE ---
Randolph Pt has only received an appropriate load at this time. Renal function worsened, SCr up to 1.09 from 0.86. Decreased dose to 1g Q24H. Next level 07/28 @13:00. Predicted AUC 539.
[2023-07-27] MEDS: Insulin Glargine,Hum.rec.anlog 100 UNIT/ML 10 ML VIAL 25 UNIT SUBCUT (08:06)
[2023-07-27] MEDS: Insulin Lispro 100 UNIT/ML 3 ML VIAL SUBCUT ×4 (08:06→20:40)
[2023-07-27] MEDS: PARoxetine HCL 20 MG TABLET PO (08:07)
[2023-07-27] MEDS: methylPREDNISolone Sod Succ 40 MG/ML VIAL 20 MG IVPUSH ×2 (08:07→20:39)
[2023-07-27] MEDS: Famotidine 20 MG TABLET PO (08:07)
[2023-07-27] MEDS: Gabapentin 300 MG CAPSULE PO ×3 (08:07→20:39)
[2023-07-27] MEDS: Apixaban 5 MG TABLET PO ×2 (08:07→20:39)
[2023-07-27] MEDS: allopurinoL 300 MG TABLET 150 MG PO (08:07)
[2023-07-27] MEDS: Cyclobenzaprine HCl 10 MG TABLET PO ×3 (08:14→20:39)
[2023-07-27] MEDS: Nystatin Powder 15 GM BOTTLE 1 APPL TOPICAL ×2 (08:16→21:06)
[2023-07-27] MEDS: Albuterol/Iprat 2.5/0.5MG 3 ML AMPUL.NEB INHALE ×4 (09:13→19:10)
[2023-07-27] MEDS: Metoprolol Tartrate 25 MG TABLET PO ×3 (10:14→20:39)
[2023-07-27] MEDS: dilTIAZem HCL CD 240 MG CAP.ER.DEG PO (10:14)
[2023-07-27] MEDS: Acetaminophen 325 MG TABLET 650 MG PO (10:20)
[2023-07-27 11:25] LABS: Glucose, Whole Blood 208 mg/dL (60-115)
--- NOTE | 2023-07-27 11:50 | MHC.SL.SWA ---
Speech Pathologist Impression: Risk of Aspiration Due to: Reduced Cognition Dysphasia Diet Status: Recommend at this time UPGRADE liquids to thin, no straws, patient requires specific cuing to slow rate of drinking and eating. Continue on Ground/Mechanical Altered, NDD2 with pills whole in puree or liquid as preferred by patient. At a minimum, patient requires direct supervision with assistance with opening up and preparing tray, and then monitor that patient is not ingesting food or liquid too quickly, or talking while eating, or exhibiting clinical signs of aspiration (coughing, increased upper airway noise, drop in O2 sats). Liquid Consistency and Strategies for Safe Swallow: Liquid Intake Recommendation: Thin Liquid Intake Strategies: Small Sips No Straws Chin Tuck with Liquids Solid Food Consistency: Dietary Recommendations: Grnd/Mech Altered (NDD2) Additional Modifications to Solid Foods: Oral Medication Intake: Crushed with Puree Please contact the pharmacy regarding appropriate crushable or liquid drug formulations that are available whenever modified delivery is recommended. Compensatory Strategies and Precautions to be Taken for Safe Swallow: Sitting Upright (90 deg) No Straw Liquids from Cup Liquids from Spoon Small Bites and Sips Alternate Liquids/Solids Rate of Ingestion Change Supervision While Eating and Drinking for Safe Swallow: Total Supervision (1:1) Foods to Avoid: Swallowing Recommended Treatments: Compens. Strategy Educat. Recommendation for Speech: Comment: Patient seen this a.m., was seated in chair by bed. RN was also attempting to provide medication to patient, patient had requested to take them with water, RN requested LUMBER TYING MACHINE OPERATOR determine safety of this first. Patient has repeatedly been requesting water from staff, per RN. Patient continues to present with hoarse/harsh vocal quality, and general impulsivity. LUMBER TYING MACHINE OPERATOR reminded patient of safety issues related to drinking thin liquids, with patient self reporting burping often and coughing occasionally when drinking water. Patient cooperated with specific cuing to sip water, hold water briefly in mouth, then swallow with tucked chin, specifically to slow rate of ingestion. When following these steps, patient did occasionally burp after swallow, however evidenced no coughing or change in vocal quality. Patient requested a straw, but was advised that she has less control and is more likely to gulp when drinking by straw, so it was discouraged. LUMBER TYING MACHINE OPERATOR observed while patient took medication with water, with patient needing encouragement to take meds one by one, rather than multiples. On one med, patient noted to tilt head backward, then on swallow coughed. Patient was advised not to tilt head backward, and again to take things slowly. Patient reported history of GERD, but was unclear if she was taking any specific medications for this condition. Recommend at this time UPGRADE liquids to thin, no straws, patient requires specific cuing to slow rate of drinking and eating. Continue on Ground/Mechanical Altered, NDD2 with pills whole in puree or liquid as preferred by patient. RN aware. Frequency/Duration: Date Range for Service Req: Timeline to reassess: Analysis Engineer Clinican/Clinical Fellow: No Supervisory Statement: I have reviewed and agree with the student/clinical fellow's documentation: N/A Speech Language Pathologist: Davida Corcoran M.A., CCC-LUMBER TYING MACHINE OPERATOR
--- NOTE | 2023-07-27 12:03 | HO.PM.IMPN ---
Subjective Subjective Date of Service: 07/27/23 Interval History: Being followed for COPD exacerbation complaining of cough productive of yellow phlegm, denies fever, no chills, not on home oxygen, complaining of generalized pain requesting for pain medication, no acute issues overnight, Review of Systems All other system reviewed and negative. Physical Exam Vital Signs: Vital Signs: Last Vital Signs Temp 97.4 F 07/27/23 07:49 Pulse 70 07/27/23 09:13 Resp 20 07/27/23 09:13 BP 146/60 H 07/27/23 10:00 Pulse Ox 93 07/27/23 07:49 O2 Del Method Nasal Cannula 07/27/23 07:49 O2 Flow Rate 1 07/27/23 07:49 BMI result Body Mass Index 35.4 Const: Other: General awake alert x3, resting comfortably, in no acute distress. Neck supple no JVD. CVS regular rate rhythm, Respiratory lungs bilateral inspiratory and expiratory wheeze, no respiratory distress, no rales Gastrointestinal abdomen soft, non tender, bowel sounds audible . Extremities no edema. Neuro nonfocal Skin no rash Psych appropriate affect Objective Data Active Medications Acetaminophen (Acetaminophen 325 Mg Tablet) 650 mg PO Q6H PRN PRN Reason: Pain, Mild (Pain Scale 1-3) Last Admin: 07/27/23 10:20 Dose: 650 mg Documented By: JOE Albuterol Sulfate (Albuterol Sulfate 90 Mcg 8 Gm Inhaler) 2 puff INHALE Q4H PRN PRN Reason: for wheezing Albuterol/Ipratropium (Albuterol/Iprat 2.5/0.5mg 3 Ml Ampul.Neb) 3 ml INHALE RQ4H WHILE AWAKE [facility] Last Admin: 07/27/23 09:13 Dose: 3 ml Documented By: ADEOLA Albuterol/Ipratropium (Albuterol/Iprat 2.5/0.5mg 3 Ml Ampul.Neb) 3 ml INHALE Q4H PRN PRN Reason: Wheezing Albuterol/Ipratropium (Albuterol/Iprat 2.5/0.5mg 3 Ml Ampul.Neb) 3 ml INHALE Q6H PRN PRN Reason: shortness of breath or wheezing Allopurinol (Allopurinol 300 Mg Tablet) 150 mg PO DAILY [facility] Last Admin: 07/27/23 08:07 Dose: 150 mg Documented By: JOE Comments: Apixaban (Apixaban 5 Mg Tablet) 5 mg PO BID [facility] Last Admin: 07/27/23 08:07 Dose: 5 mg Documented By: JOE Benzonatate (Benzonatate 100 Mg Capsule) 200 mg PO TID PRN PRN Reason: Cough Last Admin: 07/25/23 22:15 Dose: 200 mg Documented By: SARIKA Cyclobenzaprine HCl (Cyclobenzaprine Hcl 10 Mg Tablet) 10 mg PO TID [facility] Last Admin: 07/27/23 08:14 Dose: 10 mg Documented By: JOE Dextrose (Dextrose 50 % 25 Gm/50 Ml Syringe) 25 gm IVPUSH Q15M PRN; Protocol PRN Reason: per Hypoglycemia Standing Ord. Diltiazem HCl (Diltiazem Hcl Cd 240 Mg Cap.Er.Deg) 240 mg PO DAILY [facility]; Protocol Last Admin: 07/27/23 10:14 Dose: 240 mg Documented By: JOE Docusate Sodium (Docusate Sodium 100 Mg Capsule) 100 mg PO BID PRN PRN Reason: constipation Famotidine (Famotidine 20 Mg Tablet) 20 mg PO DAILY [facility] Last Admin: 07/27/23 08:07 Dose: 20 mg Documented By: JOE Furosemide (Furosemide 40 Mg Tablet) 40 mg PO BID [facility]; Protocol Last Admin: 07/27/23 08:33 Dose: Not Given Documented By: JOE Non-Admin Reason: Decreased Blood Pressure Gabapentin (Gabapentin 300 Mg Capsule) 300 mg PO TID [facility] Last Admin: 07/27/23 08:07 Dose: 300 mg Documented By: JOE Glucose (Glucose Gel 15 Gm Gel..Gram.) 15 gm PO Q15M PRN; Protocol PRN Reason: per Hypoglycemia Standing Ord. Vancomycin HCl 1,000 mg/ (Sodium Chloride) 270 mls @ 270 mls/hr IV Q24H [facility] Insulin Glargine (Insulin Glargine,Hum.Rec.Anlog 100 Unit/Ml 10 Ml Vial) 25 unit SUBCUT DAILY [facility] Last Admin: 07/27/23 08:06 Dose: 25 unit Documented By: JOE Insulin Human Lispro (Insulin Lispro 100 Unit/Ml 3 Ml Vial) 0 unit SUBCUT QIDACHS [facility]; Protocol Last Admin: 07/27/23 08:06 Dose: 6 unit Documented By: JOE Melatonin (Melatonin 3 Mg Tablet) 6 mg PO BEDTIME PRN PRN Reason: Insomnia Last Admin: 07/26/23 21:53 Dose: 6 mg Documented By: SARIKA Methylprednisolone Sodium Succinate (Methylprednisolone Sod Succ 40 Mg/Ml Vial) 20 mg IVPUSH Q12H [facility] Last Admin: 07/27/23 08:07 Dose: 20 mg Documented By: JOE Metoprolol Tartrate (Metoprolol Tartrate 25 Mg Tablet) 25 mg PO TID [facility]; Protocol Last Admin: 07/27/23 10:14 Dose: 25 mg Documented By: JOE Nystatin (Nystatin Powder 15 Gm Bottle) 1 appl TOPICAL BID [facility]; Protocol Last Admin: 07/27/23 08:16 Dose: 1 appl Documented By: JOE Ondansetron HCl (Ondansetron Hcl 4 Mg/2 Ml Vial) 4 mg IVPUSH Q8H PRN PRN Reason: Nausea and Vomiting Paroxetine HCl (Paroxetine Hcl 20 Mg Tablet) 20 mg PO DAILY [facility] Last Admin: 07/27/23 08:07 Dose: 20 mg Documented By: JOE Pharmacy Consult (Consult Rx Vancomycin Dosing) 1 each MISCELLANE DAILY PRN PRN Reason: Consult order Sodium Chloride (0.9 % Sodium Chloride Flush 3 Ml Syringe) 3 ml IVFLUSH QSHIFT [facility] Last Admin: 07/27/23 08:08 Dose: 3 ml Documented By: JOE Labs 07/25/23 06:42 07/27/23 05:10 Labs: Laboratory Results - last 24 hr 07/26/23 07/26/23 07/26/23 11:06 16:05 20:27 Hold Purple Top Estim Creat Clear Calc Estimated GFR POC Glucose 327 H 221 H 258 H 07/27/23 07/27/23 07/27/23 05:10 07:22 11:15 Hold Purple Top SEE NOTE Estim Creat Clear Calc 43.0 Estimated GFR 48 POC Glucose 263 H 208 H Microbiology Microbiology Results: Microbiology 07/25/23 01:38 Blood Culture - Preliminary Blood - Venous Prelim: GPC Gram Stain only 02/14/24 01:33 Blood Culture - Preliminary Blood - Venous No growth after 48 hours. Assessment and Plan (1) COPD exacerbation: Status: Acute (2) Acute respiratory failure: Status: Acute Plan 78-year-old female with pertinent history of paroxysmal atrial fibrillation on Eliquis, COPD not on home oxygen, gout, congestive heart failure unspecified EF, gout, insulin-dependent diabetes mellitus who was sent to the emergency department for evaluation of altered mentation. Acute hypoxemic respiratory failure secondary to acute exacerbation of COPD -slowly improving, continue bronchodilators , IV steroid , wean O2, goal 88 to 92, not on home oxygen -encourage out of bed to chair and ambulation -add scheduled cough medication Metabolic encephalopathy d/t hypoxia, resolved Generalized pain due to arthritis on Tylenol, will add as needed Ultram DM with hyperglycemia d/t steroid, steroid reduced, blood sugar in 200 range -continue Lantus + SSI, POCs PAF, rate controlled, continue eliquis, metoprolol and cardizem for rate control. Gout, continue allopurinol Congestive heart failure, unspecified EF: euvolemic, continue Lasix DVT prophylaxis: Eliquis Full code. need for inpt: hypoxic resp failure d/t copd requiring Iv steroid, and titration of O2 Quality Stroke Does the patient have a stroke diagnosis?: No VTE Prior VTE?: No VTE Risk Level:: Medical - moderate - high VTE Device Contraindication: Treatment Not Indicated VTE Drug Contraindication: N/A - Med Ordered
[2023-07-27] MEDS: guaiFENesin DM 100/10/5 ML 5 ML SYRUP 10 ML PO ×2 (14:38→20:38)
[2023-07-27] MEDS: vancomycin HCL 1,000 MG in 0.9 % Sodium Chloride 250 ML 270 MG IV (15:39)
--- NOTE | 2023-07-27 15:54 | MHC.CM.PN ---
per rounds pt is not medically ready dc plan remains home with family and beamer operator
[2023-07-27 16:09] LABS: Glucose, Whole Blood 212 mg/dL (60-115)
[2023-07-27 20:10] LABS: Glucose, Whole Blood 237 mg/dL (60-115)
[2023-07-27] MEDS: Furosemide 40 MG TABLET PO (20:39)
[2023-07-27] MEDS: Melatonin 3 MG TABLET 6 MG PO (23:26)
[2023-07-28] VITALS (10 sets, daily range): BP systolic 114–132; BP diastolic 60–70; PULSE 65–94; RESP 18–22; TEMP 36.4–36.7; O2SAT 91–97
[2023-07-28 07:05] LABS: Creatinine Clr Calc Pharmacy 50.4; Estimated Glomerular Filt Rate 58
[2023-07-28] MEDS: Albuterol/Iprat 2.5/0.5MG 3 ML AMPUL.NEB INHALE ×4 (07:38→19:34)
[2023-07-28 07:39] LABS: Glucose, Whole Blood 226 mg/dL (60-115)
[2023-07-28] MEDS: Insulin Glargine,Hum.rec.anlog 100 UNIT/ML 10 ML VIAL 25 UNIT SUBCUT (08:01)
[2023-07-28] MEDS: Insulin Lispro 100 UNIT/ML 3 ML VIAL SUBCUT ×4 (08:01→20:36)
[2023-07-28] MEDS: dilTIAZem HCL CD 240 MG CAP.ER.DEG PO (08:02)
[2023-07-28] MEDS: Cyclobenzaprine HCl 10 MG TABLET PO ×3 (08:02→20:35)
[2023-07-28] MEDS: Gabapentin 300 MG CAPSULE PO ×3 (08:02→20:34)
[2023-07-28] MEDS: guaiFENesin DM 100/10/5 ML 5 ML SYRUP 10 ML PO ×3 (08:02→20:34)
[2023-07-28] MEDS: methylPREDNISolone Sod Succ 40 MG/ML VIAL 20 MG IVPUSH (08:02)
[2023-07-28] MEDS: Apixaban 5 MG TABLET PO ×2 (08:02→20:34)
[2023-07-28] MEDS: Famotidine 20 MG TABLET PO (08:02)
[2023-07-28] MEDS: PARoxetine HCL 20 MG TABLET PO (08:03)
[2023-07-28] MEDS: Furosemide 40 MG TABLET PO ×2 (08:03→20:34)
[2023-07-28] MEDS: Metoprolol Tartrate 25 MG TABLET PO ×3 (08:03→20:34)
[2023-07-28] MEDS: allopurinoL 300 MG TABLET 150 MG PO (08:03)
[2023-07-28] MEDS: 0.9 % Sodium Chloride Flush 3 ML SYRINGE IVFLUSH ×3 (08:05→20:37)
[2023-07-28] MEDS: Nystatin Powder 15 GM BOTTLE 1 APPL TOPICAL ×2 (08:08→20:39)
[2023-07-28 11:31] LABS: Glucose, Whole Blood 276 mg/dL (60-115)
[2023-07-28 13:50] LABS: Vancomycin Random 14.6 mcg/mL (15-20)
--- NOTE | 2023-07-28 14:09 | HE.PHANOTE ---
RE: vanco Trough on 07/28 came back at 14.6 mg/L; increased dose to 1250mg Q24H with predicted AUC of 573 m/L, trough of 16.5. Next level to be drawn 07/30 @1300. Will continue to monitor renal function and adjust
[2023-07-28] MEDS: Acetaminophen 325 MG TABLET 650 MG PO ×2 (15:02→23:17)
--- NOTE | 2023-07-28 15:10 | HO.PM.IMPN ---
Subjective Subjective Date of Service: 07/28/23 Interval History: Complaining of generalized pain and shortness of breath with activity, oxygenation improved on room air 90-91%, denies nausea, no vomiting no abdominal pain or diarrhea no other acute events overnight. Review of Systems All other system reviewed and negative Physical Exam Vital Signs: Vital Signs: Last Vital Signs Temp 97.7 F 07/28/23 07:25 Pulse 82 07/28/23 12:21 Resp 20 07/28/23 12:21 BP 114/70 07/28/23 07:25 Pulse Ox 91 L 07/28/23 13:51 O2 Del Method Room Air 07/28/23 13:51 O2 Flow Rate 1.0 07/28/23 07:25 BMI result Body Mass Index 35.4 Const: Other: General awake alert x3, resting comfortably, in no acute distress. Neck supple no JVD. CVS regular rate rhythm, Respiratory lungs few inspiratory and expiratory wheeze, no respiratory distress, no rales Gastrointestinal abdomen soft, non tender, bowel sounds audible . Extremities no edema. Neuro nonfocal Skin no rash Psych appropriate affect Objective Data Active Medications Acetaminophen (Acetaminophen 325 Mg Tablet) 650 mg PO Q6H PRN PRN Reason: Pain, Mild (Pain Scale 1-3) Last Admin: 07/28/23 15:02 Dose: 650 mg Documented By: EVA Albuterol Sulfate (Albuterol Sulfate 90 Mcg 8 Gm Inhaler) 2 puff INHALE Q4H PRN PRN Reason: for wheezing Albuterol/Ipratropium (Albuterol/Iprat 2.5/0.5mg 3 Ml Ampul.Neb) 3 ml INHALE RQ4H WHILE AWAKE [facility] Last Admin: 07/28/23 12:19 Dose: 3 ml Documented By: SORAYA Albuterol/Ipratropium (Albuterol/Iprat 2.5/0.5mg 3 Ml Ampul.Neb) 3 ml INHALE Q4H PRN PRN Reason: Wheezing Albuterol/Ipratropium (Albuterol/Iprat 2.5/0.5mg 3 Ml Ampul.Neb) 3 ml INHALE Q6H PRN PRN Reason: shortness of breath or wheezing Allopurinol (Allopurinol 300 Mg Tablet) 150 mg PO DAILY [facility] Last Admin: 07/28/23 08:03 Dose: 150 mg Documented By: EVA Apixaban (Apixaban 5 Mg Tablet) 5 mg PO BID [facility] Last Admin: 07/28/23 08:02 Dose: 5 mg Documented By: EVA Benzonatate (Benzonatate 100 Mg Capsule) 200 mg PO TID PRN PRN Reason: Cough Last Admin: 07/25/23 22:15 Dose: 200 mg Documented By: SARIKA Cyclobenzaprine HCl (Cyclobenzaprine Hcl 10 Mg Tablet) 10 mg PO TID [facility] Last Admin: 07/28/23 15:01 Dose: 10 mg Documented By: EVA Dextrose (Dextrose 50 % 25 Gm/50 Ml Syringe) 25 gm IVPUSH Q15M PRN; Protocol PRN Reason: per Hypoglycemia Standing Ord. Diltiazem HCl (Diltiazem Hcl Cd 240 Mg Cap.Er.Deg) 240 mg PO DAILY [facility]; Protocol Last Admin: 07/28/23 08:02 Dose: 240 mg Documented By: EVA Docusate Sodium (Docusate Sodium 100 Mg Capsule) 100 mg PO BID PRN PRN Reason: constipation Famotidine (Famotidine 20 Mg Tablet) 20 mg PO DAILY [facility] Last Admin: 07/28/23 08:02 Dose: 20 mg Documented By: EVA Furosemide (Furosemide 40 Mg Tablet) 40 mg PO BID [facility]; Protocol Last Admin: 07/28/23 08:03 Dose: 40 mg Documented By: EVA Gabapentin (Gabapentin 300 Mg Capsule) 300 mg PO TID [facility] Last Admin: 07/28/23 15:01 Dose: 300 mg Documented By: EVA Glucose (Glucose Gel 15 Gm Gel..Gram.) 15 gm PO Q15M PRN; Protocol PRN Reason: per Hypoglycemia Standing Ord. Guaifenesin/Dextromethorphan (Guaifenesin Dm 100/10/5 Ml 5 Ml Syrup) 10 ml PO TID [facility] Last Admin: 07/28/23 15:01 Dose: 10 ml Documented By: EVA Vancomycin HCl 1,250 mg/ (Sodium Chloride) 250 mls @ 166.667 mls/hr IV Q24H [facility] Last Admin: 07/28/23 15:06 Dose: 166.67 mls/hr Documented By: EVA Insulin Glargine (Insulin Glargine,Hum.Rec.Anlog 100 Unit/Ml 10 Ml Vial) 25 unit SUBCUT DAILY [facility] Last Admin: 07/28/23 08:01 Dose: 25 unit Documented By: EVA Insulin Human Lispro (Insulin Lispro 100 Unit/Ml 3 Ml Vial) 0 unit SUBCUT QIDACHS [facility]; Protocol Last Admin: 07/28/23 12:27 Dose: 6 unit Documented By: EVA Melatonin (Melatonin 3 Mg Tablet) 6 mg PO BEDTIME PRN PRN Reason: Insomnia Last Admin: 07/27/23 23:26 Dose: 6 mg Documented By: SAMANTHA Methylprednisolone Sodium Succinate (Methylprednisolone Sod Succ 40 Mg/Ml Vial) 20 mg IVPUSH Q12H [facility] Last Admin: 07/28/23 08:02 Dose: 20 mg Documented By: EVA Metoprolol Tartrate (Metoprolol Tartrate 25 Mg Tablet) 25 mg PO TID [facility]; Protocol Last Admin: 07/28/23 15:01 Dose: 25 mg Documented By: EVA Nystatin (Nystatin Powder 15 Gm Bottle) 1 appl TOPICAL BID [facility]; Protocol Last Admin: 07/28/23 08:08 Dose: 1 appl Documented By: EVA Ondansetron HCl (Ondansetron Hcl 4 Mg/2 Ml Vial) 4 mg IVPUSH Q8H PRN PRN Reason: Nausea and Vomiting Paroxetine HCl (Paroxetine Hcl 20 Mg Tablet) 20 mg PO DAILY [facility] Last Admin: 07/28/23 08:03 Dose: 20 mg Documented By: EVA Pharmacy Consult (Consult Rx Vancomycin Dosing) 1 each MISCELLANE DAILY PRN PRN Reason: Consult order Sodium Chloride (0.9 % Sodium Chloride Flush 3 Ml Syringe) 3 ml IVFLUSH QSHIFT [facility] Last Admin: 07/28/23 08:05 Dose: 3 ml Documented By: EVA Tramadol HCl (Tramadol Hcl 50 Mg Tablet) 25 mg PO Q6H PRN PRN Reason: Pain, Severe (Pain Scale 7-10) Labs 07/25/23 06:42 07/28/23 06:07 Labs: Laboratory Results - last 24 hr 07/27/23 07/27/23 07/28/23 16:02 20:00 06:07 Estim Creat Clear Calc 50.4 Estimated GFR 58 POC Glucose 212 H 237 H Random Vancomycin 07/28/23 07/28/23 07/28/23 07:34 11:25 13:01 Estim Creat Clear Calc Estimated GFR POC Glucose 226 H 276 H Random Vancomycin 14.6 L Microbiology Microbiology Results: Microbiology 07/25/23 01:38 Blood Culture - Final Blood - Venous Annie santos Assessment and Plan (1) COPD exacerbation: Status: Acute (2) Acute respiratory failure: Status: Acute Plan 78-year-old female with pertinent history of paroxysmal atrial fibrillation on Eliquis, COPD not on home oxygen, gout, congestive heart failure unspecified EF, gout, insulin-dependent diabetes mellitus who was sent to the emergency department for evaluation of altered mentation. Acute hypoxemic respiratory failure secondary to acute exacerbation of COPD -slowly improving, continue bronchodilators , transition IV steroid to by mouth , -will monitor 24 hours since patient continued to have dyspnea on exertion -encourage out of bed to chair and ambulation, -continue scheduled cough medication Annie Santos bacteremia: One out of 2 blood cultures positive likely contamination will DC IV vancomycin Metabolic encephalopathy d/t hypoxia, resolved Generalized pain due to arthritis on Tylenol, and as needed Ultram DM with hyperglycemia d/t steroid, steroid reduced, blood sugar in 200 range -continue Lantus + SSI, POCs PAF, rate controlled, continue eliquis, metoprolol and cardizem for rate control. Gout, continue allopurinol Congestive heart failure, unspecified EF: euvolemic, continue Lasix DVT prophylaxis: Eliquis Full code. need for inpt: hypoxic resp failure d/t copd on Iv steroid, and titration of O2 Quality Stroke Does the patient have a stroke diagnosis?: No VTE Prior VTE?: No VTE Risk Level:: Medical - moderate - high VTE Device Contraindication: Treatment Not Indicated VTE Drug Contraindication: N/A - Med Ordered
[2023-07-28 16:44] LABS: Glucose, Whole Blood 223 mg/dL (60-115)
[2023-07-28] MEDS: Benzonatate 100 MG CAPSULE 200 MG PO (16:48)
[2023-07-28 20:26] LABS: Glucose, Whole Blood 260 mg/dL (60-115)
[2023-07-28] MEDS: Melatonin 3 MG TABLET 6 MG PO (23:17)
[2023-07-29 06:19] LABS: Creatinine Clr Calc Pharmacy 50.9; Estimated Glomerular Filt Rate 59
[2023-07-29 07:00] VITALS: BP 125/58; PULSE 63; RESP 17; TEMP 36; O2SAT 91
[2023-07-29 07:08] LABS: Glucose, Whole Blood 129 mg/dL (60-115)
[2023-07-29] MEDS: Albuterol/Iprat 2.5/0.5MG 3 ML AMPUL.NEB INHALE ×2 (07:35→11:19)
[2023-07-29 07:37] VITALS: PULSE 64; RESP 20; O2SAT 95
[2023-07-29] MEDS: guaiFENesin DM 100/10/5 ML 5 ML SYRUP 10 ML PO ×2 (08:01→15:00)
[2023-07-29] MEDS: Insulin Glargine,Hum.rec.anlog 100 UNIT/ML 10 ML VIAL 25 UNIT SUBCUT (08:01)
[2023-07-29] MEDS: Cyclobenzaprine HCl 10 MG TABLET PO ×2 (08:02→15:00)
[2023-07-29] MEDS: Acetaminophen 325 MG TABLET 650 MG PO (08:02)
[2023-07-29] MEDS: predniSONE 10 MG TABLET PO (08:02)
[2023-07-29] MEDS: PARoxetine HCL 20 MG TABLET PO (08:02)
[2023-07-29] MEDS: Gabapentin 300 MG CAPSULE PO ×2 (08:02→15:00)
[2023-07-29] MEDS: allopurinoL 300 MG TABLET 150 MG PO (08:02)
[2023-07-29] MEDS: Furosemide 40 MG TABLET PO (08:02)
[2023-07-29] MEDS: Apixaban 5 MG TABLET PO (08:02)
[2023-07-29] MEDS: dilTIAZem HCL CD 240 MG CAP.ER.DEG PO (08:02)
[2023-07-29] MEDS: Famotidine 20 MG TABLET PO (08:02)
[2023-07-29] MEDS: Metoprolol Tartrate 25 MG TABLET PO ×2 (08:03→15:00)
[2023-07-29] MEDS: 0.9 % Sodium Chloride Flush 3 ML SYRINGE IVFLUSH (08:06)
[2023-07-29] MEDS: Nystatin Powder 15 GM BOTTLE 1 APPL TOPICAL (10:32)
--- NOTE | 2023-07-29 10:33 | P.DS_ITS ---
DS: Providers Provider Date of Service: 07/29/23 Date of admission: 07/25/23 04:05 Primary care physician: Ti Thompson PA-C DS: Diagnosis Discharge Diagnosis (1) COPD exacerbation: Status: Acute (2) Acute respiratory failure: Status: Acute DS: Summary Hospital Course Hospital Course: Date of Service: 07/25/23 Chief Complaint: Altered mentation This is a 78-year-old female with pertinent history of paroxysmal atrial fi brillation on Eliquis, COPD not on home oxygen, gout, congestive heart failure unspecified EF, gout, insulin-dependent diabetes mellitus who was sent to the emergency department for evaluation of altered mentation. Unable to obtain history from the patient. History obtained from ER provider and chart review. Patient is awake and moaning upon evaluation. Not following commands or answering questions. Not conversational. She was found to be hypoxemic on room air and placed on supplemental oxygen. Patient was also given IV steroids and DuoNeb treatments in the ER. Unable to obtain review of systems. 78-year-old female with pertinent history of paroxysmal atrial fibrillation on Eliquis, COPD not on home oxygen, gout, congestive heart failure unspecified EF, gout, insulin-dependent diabetes mellitus who was sent to the emergency department for evaluation of altered mentation. Acute hypoxemic respiratory failure secondary to acute exacerbation of COPD admitted to medical floor treated with bronchodilators, IV steroids cough medication patient responded well to above treatment she is off oxygen , finger oximetry is stable, blood culture 1/2 showed Finegoldia Magna likely contam ination patient with no fevers no skin rash no abdominal pain, chest x-ray showed no infiltrate, since patient hypoxia has resolved and she is clinically stable she is being discharged home on 5 more days of by mouth steroids recommend to continue bronchodilators and cough medication. Metabolic encephalopathy d/t hypoxia, resolved. Generalized pain due to arthritis recommend to continue Tylenol and muscle relaxers as before DM with hyperglycemia d/t steroid, recommend to continue home medications and follow blood sugars and diabetic diet closely while on steroids. PAF, rate controlled, continue eliquis, metoprolol and cardizem for rate control. Gout, continue allopurinol Congestive heart failure, unspecified EF: euvolemic, continue Lasix. Obesity class 2 recommend weight reduction. Time Attestation Discharge coordination time: Greater than 30 minutes Quality: Safe Use of Opioids Does Pt have an Active Cancer Diagnosis on the Problem List?: No Quality: Stroke Does the patient have a stroke diagnosis?: No Physical Exam Vital Signs: Vital Signs: Last Vital Signs Temp 96.8 F 07/29/23 07:00 Pulse 64 07/29/23 07:37 Resp 20 07/29/23 07:37 BP 125/58 L 07/29/23 07:00 Pulse Ox 91 L 07/29/23 07:00 O2 Del Method Room Air 07/29/23 07:00 O2 Flow Rate 1.0 07/28/23 07:25 BMI result Body Mass Index 35.4 Const: Other: General awake alert x3, resting comfortably, in no acute distress. Neck supple no JVD. CVS regular rate rhythm, Respiratory lungs clear, no wheeze, no respiratory distress, no rales Gastrointestinal abdomen soft, non tender, bowel sounds audible . Extremities no edema. Neuro nonfocal Skin no rash Psych appropriate affect DS: Data Data Completed and Pending Labs on day of discharge: Laboratory Results - last 24 hr 07/28/23 07/28/23 07/28/23 11:25 13:01 16:39 Creatinine Estim Creat Clear Calc Estimated GFR POC Glucose 276 H 223 H Random Vancomycin 14.6 L 07/28/23 07/29/23 07/29/23 20:09 05:49 06:59 Creatinine 0.92 Estim Creat Clear Calc 50.9 Estimated GFR 59 POC Glucose 260 H 129 H Random Vancomycin Preliminary micro results at discharge 07/25/23 01:33 Blood Culture - Preliminary Blood - Venous No growth after 48 hours. Discharge Plan Discharge Anticipated Discharge Date/Time: 07/29/23 09:54 Patient Disposition: Home, Self-Care Discharge Diagnosis: Acute hypoxic respiratory failure due to COPD exacerbation Metabolic encephalopathy resolved Referrals: Ti Thompson PA-C [Primary Care Provider] - 1 Week Discharge Medications: New prednisone 10 mg Tablet 10 mg PO DAILY Qty: 5 0RF dextromethorphan-guaifenesin 10-100 mg/5 mL Syrup 10 ml PO TID Qty: 237 0RF Rx Instructions: Take for 3 days and then as needed for cough Continued (DME) lancets [OneTouch UltraSoft Lancets] Misc See Rx Instructions .ROUTE .MEDSUPPLY Qty: 3 0RF Rx Instructions: As directed check the blood sugar TID (DME) OneTouch Ultra Test Strip See Rx Instructions .Route Qty: 3 0RF Hold Instructions: Doctor's Order Rx Instructions: As directed check blood sugar 3 times a day (DME) blood-glucose meter [OneTouch Ultra2 Meter] Kit See Rx Instructions .ROUTE .MEDSUPPLY Qty: 1 0RF Hold Instructions: Doctor's Order Rx Instructions: As directed check the blood sugar TID diltiazem HCl 240 mg capsule,extended release 24hr 240 mg PO DAILY 90 Days Qty: 90 1RF (DME) hospital bed Kit See Rx Instructions .Route Qty: 1 0RF Rx Instructions: As directed metoprolol tartrate 25 mg tablet 25 mg PO TID 90 Days Qty: 270 1RF paroxetine HCl 20 mg tablet 20 mg PO QAM Qty: 90 2RF furosemide 40 mg tablet 40 mg PO BID Qty: 180 1RF ipratropium-albuterol 0.5 mg-3 mg(2.5 mg base)/3 mL solution for nebulization 3 ml inhalation Q6H PRN (Reason: shortness of breath or wheezing) Qty: 180 2RF acetaminophen 500 mg capsule 500 mg PO Q6H PRN (Reason: fever) 30 Days Qty: 120 1RF (DME) pen needle, diabetic [BD Ultra-Fine Tamia Pen Needle] 32 gauge x 5/32 needle See Rx Instructions .ROUTE .MEDSUPPLY Qty: 50 3RF Rx Instructions: three times per day insulin lispro [Admelog SoloStar U-100 Insulin] 100 unit/mL insulin pen 15 unit subcut TID Qty: 15 1RF insulin glargine 100 unit/mL (3 mL) insulin pen 20 unit subcut QAM Qty: 15 0RF famotidine 20 mg tablet 20 mg PO DAILY 90 Days Qty: 90 2RF docusate sodium 100 mg capsule 100 mg PO BID PRN (Reason: constipation) Qty: 60 1RF Eliquis 5 mg tablet 5 mg PO BID 30 Days Qty: 60 6RF cyclobenzaprine 10 mg tablet 10 mg PO TID 30 Days Qty: 90 3RF gabapentin 300 mg capsule 300 mg PO TID 90 Days Qty: 270 3RF albuterol sulfate 90 mcg/actuation HFA aerosol inhaler 2 puff PO Q4H PRN (Reason: for wheezing) (DME) blood-glucose meter [FreeStyle Lite Meter] Kit See Rx Instructions .Route Qty: 1 0RF Rx Instructions: As directed (DME) FreeStyle Lite Strips Strip See Rx Instructions .ROUTE .MEDSUPPLY Qty: 100 3RF Rx Instructions: As directed (DME) lancets [FreeStyle Lancets] 28 gauge misc See Rx Instructions .ROUTE .MEDSUPPLY Qty: 100 3RF Rx Instructions: As directed (DME) FreeStyle Sinan 2 Sensor Kit See Rx Instructions .Route Qty: 1 6RF Rx Instructions: As directed (DME) FreeStyle Sinan 2 [place] Misc See Rx Instructions .Route Qty: 1 6RF Rx Instructions: As directed allopurinol 300 mg tablet 150 mg PO DAILY Qty: 45 3RF Discharge Orders: Discharge Order (Routine); Ordered 07/29/23 Ordered By: Toribio Cardenas Diet: Diabetic diet Activity on Discharge: As tolerated Stand Alone Forms: Patient Portal Discharge page Care Plan Goals: Hypoxia resolved Take albuterol/ipratropium updraft treatment 4 times a day and continue as need ed every 4 hours for shortness of breath Take prednisone 10 mg daily for total 5 days Follow diabetic diet closely and Monitor blood sugars while on prednisone Health Concerns: Diabetes mellitus/COPD Continue all home medications as above Plan of Treatment: Follow-up with primary care physician call for appointment Assessment: As above
--- NOTE | 2023-07-29 10:53 | MHC.CM.PN ---
Addendum entered by Johana Rodriguez 07/29/23 15:02: CM RECEIVED A MESSAGE THAT THE RN SPOKE TO THE DAUGHTER AND LEARNED SHE WAS UNABLE TO TEAR DOWN WORKER PT SHE DOES NOT HAVE A CAR CM CALLED KRISTEN BACK, SHE REPORTED SHE MISUNDERSTOOD AND IS UNABLE TO TEAR DOWN WORKER THE PT PER DISCUSSION, PT WILL BE TRANSPORTED HOME VIA [employer] [facility] AT 1530 HOURS Original Note: PT CLEARED TO DC HOME TODAY THE NUMBER ON FILE FOR PTS DAUGHTER IS INCORRECT CM CALLED PTS HOME NUMBER AND WAS ABLE TO REACH HER DAUGHTER, KRISTEN. KRISTEN REPORTS SHE AND HER SON STAY WITH THE PT NOW EVERY NIGHT AND MOST OF THE DAY SHE SAYS THEY MAY GO FOR SHORT PERIODS BUT DO NOT LEAVE HER ALONE FOR LENGTHS OF TIME KRISTEN REPORTS THE PT HAS 30 HOURS OF [employer] PER WEEK WHICH SHE FILLS SHE HAS NO OTHER SERVICES [employer] CORRECT PHONE NUMBER IS [phone] TASK SENT TO [facility] REGISTRATION TO HAVE IT FIXED IN EMR PT WILL DC HOME WITH RESUMPTION OF [employer] SERVICES KRISTEN WILL PICK HER UP THIS AFTERNOON AFTER 1400 HOURS
[2023-07-29 11:13] LABS: Glucose, Whole Blood 372 mg/dL (60-115)
[2023-07-29 11:21] VITALS: PULSE 62; RESP 18; O2SAT 93
[2023-07-29] MEDS: Insulin Lispro 100 UNIT/ML 3 ML VIAL SUBCUT (11:25)
[2023-07-29] MEDS: Benzonatate 100 MG CAPSULE 200 MG PO (15:00)
== END 2023-07-29 15:55 | disposition home or self-care (01) | DRG 190 ==
LOC: HO.ED 02:54 → HO.EDOVER 04:09 → HO.S3 14:38
PROVIDERS: Internal Medicine; Admitting Provider Student in an Organized Health Care Education/Training Program; Emergency Provider Student in an Organized Health Care Education/Training Program; PCP Physician Assistant; Visit Provider Hospitalist
DX: J44.1 Chronic obstructive pulmonary disease with (acute) exacerbation (principal); G93.41 Metabolic encephalopathy; M10.9 Gout, unspecified; E66.8 Other obesity; Z68.35 Body mass index [BMI] 35.0-35.9, adult; E11.65 Type 2 diabetes mellitus with hyperglycemia; I48.0 Paroxysmal atrial fibrillation; Z20.822 Contact with and (suspected) exposure to COVID-19; Z79.4 Long term (current) use of insulin; Z79.01 Long term (current) use of anticoagulants; Z79.899 Other long term (current) drug therapy
CPT/HCPCS: 36415; 71045; 80048; 80053; 80202; 81003; 82565; 82803; 82947; 83605; 83880; 85025; 85610; 87040; 87076; 87185; 87205; 87502; 87635; 92526; 92610; 93005; 94640; 99285; J2543; J2920; J2930; J3370; J3371

== ENCOUNTER → 2023-07-25 01:14 | Outpatient (BNV) | payer MEDICARE, SELFPAY | PROVIDERS: Admitting Provider Student in an Organized Health Care Education/Training Program; Emergency Provider Student in an Organized Health Care Education/Training Program; PCP Physician Assistant; Visit Provider Internal Medicine Cardiovascular Disease | DX: I48.91 Unspecified atrial fibrillation (principal); R00.0 Tachycardia, unspecified | CPT/HCPCS: 93010 ==

== ENCOUNTER → 2023-07-25 04:05 | Outpatient (BNV) | payer MEDICARE, SELFPAY | PROVIDERS: Admitting Provider Student in an Organized Health Care Education/Training Program; Emergency Provider Student in an Organized Health Care Education/Training Program; Visit Provider Student in an Organized Health Care Education/Training Program | DX: J44.1 Chronic obstructive pulmonary disease with (acute) exacerbation (principal); J96.01 Acute respiratory failure with hypoxia; U07.1 COVID-19; E11.65 Type 2 diabetes mellitus with hyperglycemia | CPT/HCPCS: 99223; 99232; 99233; 99238 ==

== ENCOUNTER 2023-08-22 15:25 | Outpatient (AMB) | payer OTHER, SELFPAY ==
--- NOTE | 2023-08-22 15:57 | A.OFFPC_ITS ---
Vital Signs 08/22/23 16:06 Height 5 ft 3 in Weight 192 lb 4 oz BMI 34.1 BP 132/60 Blood Pressure Location Lt brachial Position Sitting Respiration 18 Pulse 75 Pulse Source Pulse Oximeter Pulse Oximetry (%) 95 Oxygen Delivery Method Room Air Intake Visit Reasons: [facility]/ Refill Request Intake Note: Patient is here for hospital discharge follow up. Patient was discharged from [facility] on 07/25/23 for COPD and Bronchitis. International Account Executive Required: No Accompanied by: Daughter Allergies aspirin [Aspirin] Allergy (Mild, Verified 08/22/23 16:15) NAUSEA codeine [Codeine] Allergy (Mild, Verified 08/22/23 16:15) VOMITING Medication List - Last Reconciled 08/22/23 by Ti Thompson PA-C acetaminophen 500 mg PO Q6H PRN 30 days albuterol sulfate 90 mcg/actuation 2 puffs PO Q4H PRN allopurinol 150 mg (1/2 x 300 mg) PO DAILY apixaban (Eliquis) 5 mg PO BID 30 days blood sugar diagnostic (FreeStyle Lite Strips) As directed blood sugar diagnostic (OneTouch Ultra Test strips) As directed check blood sugar 3 times a day blood-glucose meter (FreeStyle Lite Meter kit) As directed blood-glucose meter (OneTouch Ultra2 Meter kit) As directed check the blood sugar TID cyclobenzaprine 10 mg PO TID 30 days dextromethorphan-guaifenesin 10-100 mg/5 mL 10 mL PO TID diltiazem HCl 240 mg PO DAILY 90 days docusate sodium 100 mg PO BID PRN famotidine 20 mg PO DAILY 90 days flash glucose scanning reader (FreeStyle Sinan 2 [place]) As directed flash glucose sensor (FreeStyle Sinan 2 Sensor kit) As directed furosemide 40 mg PO BID gabapentin 300 mg PO TID 90 [address] hospital bed As directed insulin glargine 20 units (0.2 mL) subcut QAM insulin lispro (Admelog SoloStar U-100 Insulin lispro) 15 units (0.15 mL) subcut TID ipratropium-albuterol 0.5 mg-3 mg(2.5 mg base)/3 mL 3 mL inhalation Q6H PRN lancets (Path101Touch UltraSoft Lancets) As directed check the blood sugar TID lancets (FreeStyle Lancets) As directed metoprolol tartrate 25 mg PO TID 90 days paroxetine HCl 20 mg PO QAM pen needle, diabetic (BD Ultra-Fine Tamia Pen Needle) three times per day prednisone 10 mg PO DAILY Tobacco use date assessed: 08/22/23 [facility]/ Refill Request HPI Details Patient is a 77-year-old female here today for follow-up visit. Patient has a past medical history significant for hypertension, paroxysmal AFib, Congestive heart failure with preserved left ejection fraction, type 2 diabetes, failed back syndrome, COPD Patient admitted to [facility] last month for acute hypoxic respiratory failure secondary to his COPD exacerbation. She was treated with IV steroids, bronchodilators and responded well. She was able to wean off of supplemental oxygen while in the hospital. Unfortunately still sneaking cigarettes Failed back syndrome: Patient was followed by [facility] pain management though has recently been discharge for a positive urine drug screen for cocaine . She has been weaned off of morphine She is now on gabapentin 300 t.i.d. and reports no affect on her pain. She is asking for a oxycodone for her pain . PLAN : Will increase her dose of gabapentin to 600 t.i.d. Otherwise continues to significant difficulty with activities of daily living due to her back pain and medical issues. She is asking for a note for 2 bedroom apartment in walk-in shower as she has difficulty stepping into her shower. . DMII: Patient continues on multiple injections of insulin per day. She continues to follow her sugars at home reports normal blood sugars. No reports of hypoglycemic events. Unfortunately has not been able to get fasting labs done due to transportation issues. .. COPD: Patient is followed by assistant manager pt. She does admit to smoking a few cigarettes per day. She does report still having some shortness of breath on exertion. Continues with p.r.n. use of her albuterol inhaler and daily use of her Breo inhaler. .. AFib: Continues on Eliquis and beta-tate for rate control. Currently not followed by director smb sales.. Denies any overt signs of bleeding. . Congestive heart failure: Continue with the daily furosemide 40 mg b.i.d.. Appears to be euvolemic on physical exam today. [facility] Medical History CHF (congestive heart failure) A-fib Diabetes Cough Hypoventilation syndrome Skin cancer of trunk Skin cancer of face COPD (chronic obstructive pulmonary disease) Failed back syndrome Surgical History History of knee surgery History of shoulder surgery History of ankle surgery History of hip surgery Family History Father No problems noted. Mother No problems noted. Daughter Opiate dependence Substance use disorder Family/Other FH: mental illness Mental health disorder Social History Household Members: Other Household Members Other:: daughter Housing: House Do you presently have visiting nurse or other home services: No Unable to assess alcohol history related to: Unknown Alcohol intake: never Patient Tobacco Use Status: Former Tobacco user Tobacco use type: Cigarette e-Cigarette/Vaping Use: Never Used service: No Current occupational status: retired and disabled Cognitive needs: Yes Hearing needs: No Vision needs: Yes Questionnaire PHQ-9 Over the last 2 weeks, how often have you been bothered by any of the following problems? 1. Little interest or pleasure in doing things: not at all 2. Feeling down, depressed, or hopeless: not at all 3. Trouble falling or staying asleep, or sleeping too much: not at all 4. Feeling tired or having little energy: not at all 5. Poor appetite or overeating: not at all 6. Feeling bad about yourself - or that you are a failure or have let yourself or your family down: not at all 7. Trouble concentrating on things, such as reading the newspaper or watching television: not at all 8. Moving or speaking so slowly that other people could have noticed. Or the opposite - being so fidgety or restless that you have been moving around a lot more than usual: not at all 9. Thoughts that you would be better off or of hurting yourself in some way: not at all Total score: 0 Depression Screening Interpretation: Negative Depression Screening Done: Yes 10332 - PHQ-9 Billing: Yes Source: Developed by Drs. Dylan Asif, Saundra Thompson, Vik Vega and colleagues, with an educational elías from [employer]. Thrive Questionnaire Date Thrive assessed: 07/26/23 AUDIT C Alcohol Use Questionnaire (AUDIT-C) 1. How often do you have a drink containing alcohol?: Never 3. How often do you have six or more drinks on one occasion?: Never Total Score: 0 CADEN-7 AMB Questionnaire CADEN-7 Date CADEN - 7 assessed: 08/22/23 Feeling nervous, anxious, or on edge: 0 = Not at all Not being able to stop or control worryin = Not at all Worrying too much about different things: 0 = Not at all Trouble relaxin = Not at all Being so restless that it is hard to sit still: 0 = Not at all Becoming easily annoyed or irritable: 0 = Not at all Feeling afraid as if something awful might happen: 0 = Not at all Total CADEN-7 score (0-4 normal; 5-9 mild; 10-14 moderate; 15-21 severe): 0 Source: Developed by Drs. Dylan Asif, Saundra Thompson, Vik Vega and colleagues, with an educational elías from [employer]. CADEN-7 Assessment Billing CADEN-7 Assessment Tool: CADEN-7 Assessment 10972 Review of Systems Const Denies headache(s) Eyes Denies loss of vision ENT Denies vertigo, Denies dizziness, Denies headache(s) and Denies sore throat Card Denies chest pain, Denies leg edema and Denies lightheadedness Resp Denies cough, Denies hemoptysis and Denies wheezing GI Denies abdominal pain, Denies melena, Denies constipation, Denies diarrhea and Denies vomiting Denies urinary frequency, Denies dysuria and Denies urinary urgency Musc Denies arthralgias, Denies joint swelling, Denies numbness and Denies tingling Neuro Denies Abnormal speech present, Denies behavioral changes, Denies vertigo, Denies dizziness, Denies headache(s), Denies loss of vision, Denies memory loss, Denies numbness and Denies tingling Psych Denies anxiety, Denies behavioral changes, Denies depression, Denies memory loss and Denies panic attacks Jas/Lymph Denies easy bleeding and Denies easy bruising Aller/Immun Denies wheezing Physical exam (Primary Care) Vital Signs: Last Vital Signs Pulse 75 08/22/23 16:06 Resp 18 08/22/23 16:06 BP 132/60 08/22/23 16:06 Pulse Ox 95 08/22/23 16:06 Oxygen Delivery Method Room Air 08/22/23 16:06 BMI result Body Mass Index 34.1 Tobacco/Smoking Status: Tobacco use Status Tobacco use date assessed 08/22/23 08/22/23 16:12 Patient Tobacco Use Status Former Tobacco user 08/22/23 15:57 Tobacco use type Cigarette 08/22/23 15:57 e-Cigarette/Vaping Use Never Used 08/22/23 15:57 PHQ-9: PHQ-9 Score PHQ-9: Total score 0 08/22/23 16:21 Depression Screening Interpretation: Negative Thrive Assessment: Date of Thrive Assessment Date Thrive assessed 07/26/23 08/22/23 15:57 Const General: healthy appearing, no acute distress, alert and awake Nutritional Appearance: well nourished Orientation/consciousness: oriented to person, oriented to place and oriented to time HENMT Ears: TM's normal bilaterally General nose exam: Normal nasal mucous membranes and turbinates present Eyes Conjunctivae: conjunctivae normal Sclerae: sclerae normal Pupils: Equal, round and reactive pupils present Neck Neck: Yes no lymphadenopathy and Yes no JVD Thyroid: Thyroid normal Carotids: no bruits Resp Effort & Inspection: normal respiratory effort and not tachypneic Auscultation: no crackles, rales, rhonchi and no wheezes Cardio Rate: regular rate Rhythm: regular rhythm Heart sounds: no murmurs and normal S1 and S2 GI Palpation (GI): Soft to palpation, nontender, no hepatomegaly and no splenomegaly Auscultation: normal bowel sounds Back/Spine/Pelvis Other: LIMITED RANGE OF MOTION OF THE LUMBAR AND CERVICAL SPINE DUE TO PAIN AND STIFFNESS. AMBULATES WITH A ROLLATOR FOR ASSISTANCE. Skin General skin exam: no rashes or lesions noted and dry skin Neuro General: oriented to person, oriented to place and oriented to time Cranial nerves: Yes Equal, round and reactive pupils present Speech: No Abnormal speech present Gait exam (Neuro): Normal gait present Motor exam (neuro): no tremor noted Extrem Right upper extremity: full ROM Left upper extremity: full ROM Right lower extremity: full ROM; no edema Left lower extremity: full ROM; no edema Psych Mental Status: mental status grossly normal Speech and movement: Normal speech and movement present Affect: normal affect Attitude: cooperative Thought process: Normal thought process present Assessment and Plan Assessment & Plan (1) HTN (hypertension): Code(s): I10 - Essential (primary) hypertension Qualifiers: Hypertension type: essential hypertension Qualified Code(s): I10 - Essential (primary) hypertension Plan: Patient's blood pressure acceptable today in office. Will continue her current dose of antihypertensive medication with goal blood pressure to be below 140/90 (2) DMII (diabetes mellitus, type 2): Code(s): E11.9 - Type 2 diabetes mellitus without complications Qualifiers: Diabetes mellitus complication status: with hyperglycemia Diabetes mellitus chcf insulin use: without middle or intermediate school principal use Qualified Code(s): E11.65 - Type 2 diabetes mellitus with hyperglycemia Plan: Patient's type 2 diabetes well controlled with current management.. Patient continues with insulin therapy for her type 2 diabetes. She reports that home blood sugars have been stable Goal A1c to be below 7.0 (3) Failed back syndrome: Comment: THIS KEEPS HER SEVERELY IMPAIRED AND DEBILITATED. Code(s): M96.1 - Postlaminectomy syndrome, not elsewhere classified Plan: As above patient now off of opiate pain medication. Continues with gabapentin for the treatment of her lower back pain. She reports the gabapentin is not helping. She reports being a lot of pain. She is asking for oxycodone though do not think this is appropriate for her and her living situation living family members who maybe battling with substance abuse per. She has been seeing [place] pain management and anticipates a pain reduction modality with a nerve stimulator. Will increase her gabapentin to 600 t.i.d. for better pain control. (4) Opiate dependence: Comment: She has had opiates dependence for many years for her chronic back pain/ failed back surgeries in the past. Code(s): F11.20 - Opioid dependence, uncomplicated Qualifiers: Substance use status: uncomplicated Qualified Code(s): F11.20 - Opioid dependence, uncomplicated Plan: Has been recently in remission. Has been weaned off of morphine by her [facility] pain management. (5) Paroxysmal A-fib: Code(s): I48.0 - Paroxysmal atrial fibrillation Plan: Continues on anticoagulation without a reports of overt bleeding. Denies any recent episodes of heart palpitations. (6) CHF (congestive heart failure), NYHA class II: Code(s): I50.9 - Heart failure, unspecified Qualifiers: Congestive heart failure chronicity: chronic Congestive heart failure type: diastolic Qualified Code(s): I50.32 - Chronic diastolic (congestive) heart failure Plan: Patient appears euvolemic on physical exam today. Continues on furosemide 40 mg b.i.d. (7) Obese: Code(s): E66.9 - Obesity, unspecified Qualifiers: Body mass index: BMI 34.0-34.9 Obesity classification: adult class 1 (BMI 30 - 34.9) Obesity type: due to excess calories Serious obesity comorbidity presence: with serious comorbidity Qualified Code(s): E66.09 - Other obesity due to excess calories; Z68.34 - Body mass index [BMI] 34.0-34.9, adult Plan: Patient does understand her BMI is over 30, has not been able to be physically active due to her multiple comorbidities. Will try to work on better eating habits to reduce weight. (8) Cervical spine disease: Code(s): M48.9 - Spondylopathy, unspecified Plan: She does have some decreased range of motion of her cervical spine due to pain and stiffness and muscle tension. She is interested in establishing care with [place] pain management for possible trigger point injections. (9) Tobacco dependence: Code(s): F17.200 - Nicotine dependence, unspecified, uncomplicated Plan: Unfortunately still smoking cigarettes. She admits to smoking 2-3 cigarettes per day. Advised on completely quitting and she does understand and will try. Not interested in nicotine replacement at this time (10) COPD (chronic obstructive pulmonary disease): Comment: Has chronic COPD due to old time smoking/ Br Asthma It has remained relatively stable. TX: BREO-201 INHALATION DAILY INCRUSE ELLIPTA 1 INHALATION DAILY. PROAIR 2 PUFFS Q 4-6 HOURS P.R.N. THEOPHYLLINE ER 200 MG( HALF OF 400 MG) BID Code(s): J44.9 - Chronic obstructive pulmonary disease, unspecified Qualifiers: COPD type: chronic bronchitis Chronic bronchitis type: simple Qualified Code(s): J41.0 - Simple chronic bronchitis Plan: As per HPI Medications: New gabapentin 600 mg PO TID 30 days 90 tabs 3RF M96.1 - Postlaminectomy syndrome, not elsewhere classified Changed From albuterol sulfate 90 mcg/actuation 2 puffs PO Q4H PRN for wheezing J41.0 - Simple chronic bronchitis To albuterol sulfate 90 mcg/actuation 2 puffs PO Q4H 30 days 8.5 grams 3RF for wheezing J41.0 - Simple chronic bronchitis Refilled metoprolol tartrate 25 mg PO TID 90 days 270 tabs 1RF I10 - Essential (primary) hypertension ipratropium-albuterol 0.5 mg-3 mg(2.5 mg base)/3 mL 3 mL inhalation Q6H PRN 180 mL 2RF shortness of breath or wheezing J41.0 - Simple chronic bronchitis Discontinued gabapentin Discontinued Reason: Doctor's Order 300 mg PO TID 90 days 270 caps 3RF M96.1 - Postlaminectomy syndrome, not elsewhere classified Coding Level of Care Code Est Pt Level 4 (87316) Diagnoses Essential hypertension I10 Hypertension type: essential hypertension Type 2 diabetes mellitus with hyperglycemia, without long-term current use of insulin E11.65 Diabetes mellitus complication status: with hyperglycemia Diabetes mellitus chcf insulin use: without middle or intermediate school principal use Failed back syndrome M96.1 Uncomplicated opioid dependence F11.20 Substance use status: uncomplicated Paroxysmal A-fib I48.0 Chronic diastolic congestive heart failure, NYHA class 2 I50.32 Congestive heart failure chronicity: chronic Congestive heart failure type: diastolic Class 1 obesity due to excess calories with serious comorbidity and body mass index (BMI) of 34.0 to 34.9 in adult E66.09; Z68.34 Body mass index: BMI 34.0-34.9 Obesity classification: adult class 1 (BMI 30 - 34.9) Obesity type: due to excess calories Serious obesity comorbidity presence: with serious comorbidity Cervical spine disease M48.9 Tobacco dependence F17.200 Simple chronic bronchitis J41.0 COPD type: chronic bronchitis Chronic bronchitis type: simple Additional Codes CADEN-7 Assessment Billing - CADEN-7 Assessment Tool: CADEN-7 Assessment [id number] ([id number])
[2023-08-22 16:06] VITALS: BP 132/60; PULSE 75; RESP 18; O2SAT 95; BMI 34.1
== END 2023-08-22 16:38 | disposition home or self-care (01) ==
PROVIDERS: PCP Physician Assistant; Visit Provider Physician Assistant
DX: I11.0 Hypertensive heart disease with heart failure (principal); I50.32 Chronic diastolic (congestive) heart failure; E11.65 Type 2 diabetes mellitus with hyperglycemia; F11.20 Opioid dependence, uncomplicated; M48.9 Spondylopathy, unspecified
CPT/HCPCS: 99214

== ENCOUNTER 2023-10-30 14:34 | Inpatient (IN) | payer OTHER, SELFPAY ==
--- NOTE | ~2023-10-30 | CT_ITS ---
EXAMINATION: CT CHEST WITHOUT CONTRAST CLINICAL INFORMATION: Pneumonia; persistent hypoxia. COMPARISON: CT chest dated 10/29/2023. TECHNIQUE: Multidetector volumetric CT imaging of the chest was done. Axial MIP volume rendering provided. Sagittal and coronal reformatted images were obtained. This CT examination was performed using dose optimization techniques as appropriate, variously including the following: *Automated exposure control *Adjustment of mA and/or kV according to patient size (this includes techniques or standardized protocols for targeted exams where dose is matched to indication/reason for exam; i.e. extremities or head) *Use of iterative reconstruction technique DLP: 1114 mGy-cm FINDINGS: ANIMAL BOUNTY HUNTER: Limited, with the apices excluded on the frontal view. There are opacities noted. LUNGS: There are diffuse bilateral groundglass opacities and lesser focal consolidation involving all lobes. At the lateral right base (5:300), a small benign, calcified granuloma is seen. No mass lesion is seen. There is mild generalized small airway thickening. The central airways appear patent. MEDIASTINUM: The thyroid is unremarkable. There is no thoracic aortic aneurysm. There are moderate atherosclerotic calcifications of the great vessel origins and thoracic aorta. There are shotty, nonpathologically enlarged mediastinal lymph nodes. No sizable mediastinal or hilar lymphadenopathy is seen. CORONARY ARTERY CALCIFICATION: Mild. PLEURA: There is no pleural effusion. No pleural mass or thickening. AXILLA: No lymphadenopathy. UPPER ABDOMEN: Please see accompanying report for CT abdomen and pelvis. OSSEOUS STRUCTURES: There is multi-level cervicothoracic spondylosis. A small nonspecific sclerotic focus is again seen within the upper sternal body (7:58). There is no acute osseous finding. CT/CT chest wo IV con IMPRESSION: 1. There are diffuse bilateral groundglass opacities, likely infectious or inflammatory in etiology. Recommend clinical correlation and follow-up imaging to ensure clearance. 2. There is mild generalized small airway thickening, also likely infectious or inflammatory in etiology. 3. No thoracic lymphadenopathy or pleural effusion is seen. 4. There are degenerative changes of the spine. A small nonspecific sclerotic focus is seen within the sternal body. This is of uncertain etiology and could be more fully evaluated with a nuclear bone scan or MRI clinically indicated (i.e., history of focal pain at this location or known malignancy). Fleischner guidelines were followed.
--- NOTE | ~2023-10-30 | CT_ITS ---
EXAMINATION: CT CHEST WITHOUT CONTRAST CLINICAL INFORMATION: 78-year-old female with hypoxia COMPARISON: None available. TECHNIQUE: Multidetector volumetric CT imaging of the chest was done. Axial MIP volume rendering provided. Sagittal and coronal reformatted images were obtained. This CT examination was performed using dose optimization techniques as appropriate, variously including the following: *Automated exposure control *Adjustment of mA and/or kV according to patient size (this includes techniques or standardized protocols for targeted exams where dose is matched to indication/reason for exam; i.e. extremities or head) *Use of iterative reconstruction technique DLP: 271 mGy-cm FINDINGS: HALL PORTER: Unremarkable LUNGS: Lungs are clear with linear atelectasis at the left lung base and discoid atelectasis in the right lower lobe adjacent to the elevation of right hemidiaphragm with mucus impaction in the peripheral bronchi. Central airways are patent. MEDIASTINUM: The mediastinum is normal. CORONARY ARTERY CALCIFICATION: Mild PLEURA: There is no pleural effusion. No pleural mass or thickening. AXILLA: No lymphadenopathy. UPPER ABDOMEN: There is highly positioned the right hemidiaphragm. Visualized liver, pancreas, gallbladder, adrenal glands, spleen are unremarkable. There is small hiatal hernia and features of GI reflux. OSSEOUS STRUCTURES: There are mild changes of degenerative spondylosis in thoracic spine. No lytic or blastic lesions seen. CT/CT chest wo IV con IMPRESSION: 1. Atelectasis in the right lower lobe adjacent to the elevation of right hemidiaphragm. 2. Mild coronary artery calcifications. 3. GI reflux. Fleischner guidelines were followed.
--- NOTE | ~2023-10-30 | CT_ITS ---
EXAMINATION: CT ABDOMEN AND PELVIS WITHOUT CONTRAST CLINICAL INFORMATION: GI bleeding. COMPARISON: CT abdomen and pelvis dated 11/03/2023. TECHNIQUE: Multidetector volumetric imaging was performed from the superior aspect of the liver through the pubic symphysis. Sagittal and coronal reformatted images were obtained on the technologist's workstation. This CT examination was performed using dose optimization techniques as appropriate, variously including the following: *Automated exposure control *Adjustment of mA and/or kV according to patient size (this includes techniques or standardized protocols for targeted exams where dose is matched to indication/reason for exam; i.e. extremities or head) *Use of iterative reconstruction technique DLP: 1114 mGy-cm FINDINGS: LUNG BASES: There are diffuse bibasilar groundglass infiltrates. LIVER, GALLBLADDER, AND BILIARY TREE: The liver is normal in size, shape, and attenuation. No focal hepatic lesion is seen. Mild biliary ductal dilatation is present. The gallbladder is distended and contains layering milk of calcium. There is no gallbladder wall thickening or obvious pericholecystic inflammatory change. The common bile duct is dilated to 1.3 cm (6:84). No focal choledocholith is seen. PANCREAS: The pancreas is again atrophic. There is mild proximal pancreatic ductal dilatation to 4 mm. No definite mass is appreciated, with evaluation limited by noncontrast technique. SPLEEN: Unremarkable. ADRENAL GLANDS: Unremarkable. KIDNEYS AND URETERS: The kidneys are normal in size, shape, and attenuation. No hydronephrosis, hydroureter, or calculi seen. No perinephric stranding. BLADDER: Unremarkable. GASTROINTESTINAL TRACT: Rectosigmoid wall thickening is suspected, with imaging limited by noncontrast technique. No obstruction, free intraperitoneal air or abscess is seen. There is no focal bowel wall thickening. No significant diverticulosis or diverticulitis is seen. The vermiform appendix is unremarkable. ABDOMINAL WALL: There is a diastases rectus. There is a very small fat-containing umbilical hernia. There is mild anasarca. LYMPH NODES: Normal. VASCULAR: There is moderate aortoiliac atherosclerotic calcification. No abdominal aortic aneurysm is seen. PELVIC VISCERA: Surgically absent. OSSEOUS STRUCTURES: There is a right hip arthroplasty with secondary metallic streak artifact. There are degenerative changes of the thoracolumbar spine. No acute or aggressive osseous finding is noted. CT/CT abdomen pelvis wo IV con IMPRESSION: 1. Rectosigmoid wall thickening is suspected, with note made that imaging is limited by noncontrast technique and pelvic metallic streak artifact. Please clinically clinically. No obstruction, free intraperitoneal air or abscess is seen. No appendicitis or diverticulitis is seen. There is no significant colonic diverticulosis. 2. There is layering milk of calcium within the gallbladder, without finding to suggest acute cholecystitis. No choledocholithiasis is noted. There is mild intrahepatic biliary ductal dilatation. The common bile duct is again dilated, and there is mild proximal pancreatic ductal dilatation. Again, an occult pancreatic lesion is not excluded, with present evaluation limited by noncontrast technique. 3. No urinary calculus or obstruction is seen. 4. There is no abdominopelvic free fluid or lymphadenopathy. 5. There are degenerative changes of the spine. A right hip arthroplasty is noted. There is no acute or aggressive osseous finding. 6. There are diffuse bibasilar groundglass infiltrates. 7. There is mild anasarca. Fleischner guidelines were followed.
--- NOTE | ~2023-10-30 | XR_ITS ---
EXAMINATION: XR CHEST CLINICAL INFORMATION: Low O2 sat COMPARISON: 12/02/2023 TECHNIQUE: Frontal view of the chest was obtained. FINDINGS: Low lung volumes. Again seen are diffuse interstitial opacities and foci of groundglass attenuation in both lungs with thickening of the peribronchial vascular interstitium, not appreciably changed as compared to prior. Cardiac and mediastinal contours are normal. No pneumothorax or pleural effusion. Degenerative spondylosis is present in the thoracic spine. 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 Chronic bilateral rotator cuff tears. XR/XR chest 1V IMPRESSION: No significant change in the diffuse interstitial opacities and foci of groundglass attenuation in both lungs. Differential could include pneumonia, acute interstitial pneumonitis, other interstitial lung diseases, and pulmonary edema.
--- NOTE | ~2023-10-30 | MR_ITS ---
EXAMINATION: MR ABDOMEN WITHOUT AND WITH CONTRAST CLINICAL INFORMATION: Bacteremia. COMPARISON: CT abdomen/pelvis 11/02/2023. TECHNIQUE: MR abdomen was performed without and with use of 10 mL intravenous Gadavist gadolinium contrast. Postcontrast images are performed in multiphase dynamic sequences. Imaging was performed in 3 planes. FINDINGS: Image quality is technically degraded by motion artifact. LUNG BASES: Right hemidiaphragm is elevated. Right basilar atelectasis. LIVER, GALLBLADDER, AND BILIARY TREE: Hepatic steatosis. No focal hepatic lesion. The common duct measures up to 1.4 cm at the mimi hepatis and tapers smoothly. Moderate intrahepatic biliary ductal dilatation. No intraductal filling defects. No focal hepatic lesion or biliary ductal dilatation is present. The gallbladder is distended with sludge and small stones. PANCREAS: Distal atrophy of the pancreas. There is 1.0 cm focal signal dropout of the main pancreatic duct in the neck of the pancreas. There is abrupt changing caliber with dilatation and tortuosity of the distal duct up to 6 mm. No peripancreatic stranding or peripancreatic fluid collections. SPLEEN: Not enlarged. 1.1 cm T2 hyperintense focus possibly representing a cyst. ADRENAL GLANDS: No adrenal mass. KIDNEYS AND URETERS: The kidneys are normal in size, shape, and enhance symmetrically. No hydronephrosis. No perinephric stranding. GASTROINTESTINAL TRACT: No bowel obstruction. No ascites or fluid collection. LYMPH NODES: No bulky lymphadenopathy. VASCULAR: Normal caliber abdominal aorta. OTHER: Markedly distended urinary bladder. MR/MR abdomen wo/w con IMPRESSION: 1.0 cm signal dropout within the main pancreatic duct in the neck of the pancreas. There is changing caliber of the pancreatic duct with distal atrophy of the pancreatic parenchyma and tortuosity and dilatation of the duct measuring up to 6 mm. An underlying stricture cannot be excluded. Distended gallbladder with sludge and small stones. The common duct measures up to 1.4 cm at the mimi hepatis without intraductal filling defects. Moderate intrahepatic biliary ductal dilatation. This may represent biliary dyskinesia. Correlation with nuclear medicine HIDA scan may be considered. Marked bladder distention.
--- NOTE | ~2023-10-30 | XR_ITS ---
EXAMINATION: XR CHEST CLINICAL INFORMATION: Follow-up hypoxia COMPARISON: 11/20/2023 as well as the oldest available study dated 07/25/2023 TECHNIQUE: Frontal view of the chest was obtained. FINDINGS: Heart size normal. Again noted are diffuse airspace opacities throughout the lungs, slightly worse in the left midlung. Considerably less abnormality was seen on the 07/25/2023 study. No pleural effusions are detected. No pneumothorax XR/XR chest 1V IMPRESSION: Diffuse bilateral airspace opacities, slightly worse in the left midlung.
--- NOTE | ~2023-10-30 | XR_ITS ---
EXAMINATION: XR CHEST CLINICAL INFORMATION: Respiratory distress COMPARISON: 11/18/2023 TECHNIQUE: Frontal view of the chest was obtained. FINDINGS: Again seen are hypoinflated lungs. Bilateral airspace opacities are seen throughout both lungs which appear worse when compared to the 11/18/2023 study. No pleural effusions. No pneumothorax. XR/XR chest 1V IMPRESSION: Worsening bilateral airspace opacities.
--- NOTE | ~2023-10-30 | FL_ITS ---
EXAMINATION: Modified Barium Swallows CLINICAL INFORMATION: Dysphagia COMPARISON: None TECHNIQUE: Modified barium swallow was performed under lateral fluoroscopy with patient in standing position. Barium mixed with solids and liquids of different consistencies was administered by the speech pathologist. Examination was recorded in the fluoroscopy suite. FINDINGS: Laryngeal penetration was seen with nectar thick contrast. Aspiration was seen with thin consistency barium. FLUOROSCOPY TIME: 1 minute 32 seconds Number of Spot Images: N/A DOSE AREA PRODUCT: 1474 uGy-m2 (microgray-meter squared) FL/FL barium swallow modified IMPRESSION: Laryngeal penetration was seen with nectar thick contrast. Aspiration was seen with thin consistency barium. Refer to the speech therapy report for further clarification This procedure was performed by Osiel Ventura PA-C, and supervised by Dr. Jenkins
--- NOTE | ~2023-10-30 | XR_ITS ---
EXAMINATION: PORTABLE CHEST 1 VIEW CLINICAL INFORMATION: re-eval from previous xray. COMPARISON: 12/10/2023 chest x-ray. TECHNIQUE: Portable frontal view of the chest was obtained. FINDINGS: Lungs remain hypoexpanded with coarsened reticular markings again seen with a peripheral predominance. No dense consolidation or air bronchograms. The airspace disease has shown some slight improvement from the prior study. No significant effusion, overt edema, or pneumothorax. Mild peribronchial cuffing noted. Cardiac and mediastinal silhouettes within normal limits for size. Degenerative changes in the spine and shoulders XR/XR chest 1V IMPRESSION: Hypoexpanded with coarsened reticular markings and peribronchial cuffing. The airspace disease has shown some slight improvement from the prior study. Appearance is nonspecific. Improving atypical infectious etiology as well as component of interstitial lung disease could have overlapping appearance and should be clinically correlated.
--- NOTE | ~2023-10-30 | CT_ITS ---
EXAMINATION: CT ABDOMEN AND PELVIS WITH CONTRAST CLINICAL INFORMATION: Bacteremia COMPARISON: None available. TECHNIQUE: Multidetector volumetric images were obtained from the superior aspect of the liver through the pubic symphysis following administration 85 mL of Omnipaque 350 intravenous contrast. Sagittal and coronal reformatted images were obtained on the technologist's workstation. Oral contrast: No This CT examination was performed using dose optimization techniques as appropriate, variously including the following: *Automated exposure control *Adjustment of mA and/or kV according to patient size (this includes techniques or standardized protocols for targeted exams where dose is matched to indication/reason for exam; i.e. extremities or head) *Use of iterative reconstruction technique DLP: 722 mGy-cm FINDINGS: Digital talent scout: Right-sided lower spinal instrumentation. Right hip replacement. Large amount fecal residue in the proximal colon as well as throughout the remainder of the colon. Rectal gas extends below the pubic symphysis. Elevation right hemidiaphragm. LUNG BASES: There is opacification with volume loss in the right lower lung. There is a small wedge-shaped opacity in the posterior left lower lung. These could be related to atelectasis. There is coronary calcification. LIVER, GALLBLADDER, AND BILIARY TREE: No suspicious focal liver lesion. There is high attenuation layering in the gallbladder fundus. There is dilation of the extrahepatic biliary tree and some of the central intrahepatic bile ducts. The common duct measures approximately 1.3 cm. There is no calcified stone demonstrated in the common bile duct. PANCREAS: The pancreas is abnormal. There is normal enhancement of the pancreatic head. There is a fairly abrupt change with atrophy of the pancreatic body and tail and some pancreatic ductal dilation peripheral to the pancreatic neck. SPLEEN: There is a round 1.5 cm low attenuating lesion in the upper peripheral aspect of the spleen. This is nonspecific. ADRENAL GLANDS: No suspicious abnormality KIDNEYS AND URETERS: There is no dilation of the urinary collecting system. No suspicious renal mass. The nephrograms are symmetric. BLADDER: Limited by metallic artifact. The urinary bladder is distended. GASTROINTESTINAL TRACT: Large amount of fecal residue in the colon including the cecum. The cecum is positioned near the midline. No localized pericolonic fat stranding. No CT evidence of acute appendicitis. ABDOMINAL WALL: There is laxity with eventration of the midline abdominal wall. No definite bowel hernia. There is pelvic floor relaxation. LYMPH NODES: No measurably enlarged lymph nodes in the abdomen or pelvis. VASCULAR: There is no abdominal aortic aneurysm. The portal vein enhances. There is atherosclerotic calcification. PELVIC VISCERA: Limited by metallic artifact There is pelvic floor relaxation including posterior compartment. OSSEOUS STRUCTURES: Extensive artifact from right hip replacement. There is lucency in the right iliac bone which could be a graft harvest site but is nonspecific. There are extensive proliferative changes around the left hip. There has been instrumentation involving the posterior elements on the right in the lower lumbar spine. CT/CT abdomen pelvis w IV con IMPRESSION: The pancreas is abnormal. There is an abrupt change in size with atrophy and ductal dilation beyond the pancreatic neck. An occult lesion should be excluded. Extra and intrahepatic biliary dilation to the level of the ampulla. There are small gallstones layering in the gallbladder which is mildly distended. A nonopaque distal bile duct calculus cannot be excluded. Lower lung opacities most likely atelectasis. Nonspecific small round low attenuating lesion in the spleen. In the absence of a known primary malignancy this does not require specific imaging follow-up. Large amount of fecal residue. Pelvic floor relaxation. No abscess demonstrated Fleischner guidelines were followed.
--- NOTE | ~2023-10-30 | XR_ITS ---
EXAMINATION: XR CHEST CLINICAL INFORMATION: Dyspnea COMPARISON: Chest radiograph from 11/17/2023 TECHNIQUE: Frontal view of the chest was obtained. FINDINGS: Bilateral low lung volumes. Redemonstrated bilateral patchy radiopacities throughout the bilateral lung alberto greatest in the right mid and left upper lung alberto. Trace right pleural effusion. No pneumothorax. Trachea is midline. Cardiomediastinal silhouette is not enlarged. Osseous structures are intact. Soft tissues are unremarkable. XR/XR chest 1V IMPRESSION: 1. Bilateral low lung volumes. 2. Redemonstrated bilateral patchy radiopacities throughout the bilateral lung alberto greatest in the right mid and left upper lung alberto. 3. Trace right pleural effusion.
--- NOTE | ~2023-10-30 | XR_ITS ---
EXAMINATION: XR CHEST CLINICAL INFORMATION: Shortness of breath. COMPARISON: Chest radiographs dated 11/12/2021. TECHNIQUE: Frontal view of the chest was obtained. FINDINGS: The heart, great vessels, pulmonary vasculature and mediastinum are stable. The patient is somewhat rotated. There is again bilateral patchy airspace disease, mild in the mid right lung and moderate in the upper left lung. There is interim increase in the upper left lung. There is elevation the right hemidiaphragm. No effusion or pneumothorax is seen. There is no acute osseous abnormality. There is degenerative change of the right shoulder. XR/XR chest 1V IMPRESSION: Abdominal pulmonary infiltrates are again seen, now moderate in the left upper lobe, with interim increase.
--- NOTE | ~2023-10-30 | XR_ITS ---
EXAMINATION: XR CHEST CLINICAL INFORMATION: Intubated COMPARISON: 11/13/2023 TECHNIQUE: Frontal view of the chest was obtained. FINDINGS: ET tube terminates 2.5 cm from the timoteo. Enteric tube extends into the body of the stomach. Low lung volumes. Patchy airspace opacities are again seen within both lungs, left greater than right, concerning for pneumonia or aspiration. These findings are most notable in the left perihilar region and right infrahilar region. Cardiac and mediastinal contours are normal. Degenerative spondylosis is present in the thoracic spine. Bones are osteopenic. 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 Chronic right rotator cuff tear. XR/XR chest 1V IMPRESSION: 1. ET tube terminates 2.5 cm from the timoteo. 2. Patchy airspace opacities in both lungs, left greater than right, concerning for pneumonia or aspiration.
--- NOTE | ~2023-10-30 | XR_ITS ---
EXAMINATION: XR CHEST CLINICAL INFORMATION: Follow-up CHF exacerbation COMPARISON: Previous chest x-ray November [address] 11/21/2023 TECHNIQUE: Frontal view of the chest was obtained. FINDINGS: The cardiac silhouette does not appear enlarged. Hilar and mediastinal contours are unremarkable. The lung volumes are low. There is diffuse mixed interstitial and alveolar disease throughout the lungs, left greater than right. This may be slightly increased on the left compared to previous exam. No pleural effusion or pneumothorax. Degenerative changes of the spine and shoulders. XR/XR chest 1V IMPRESSION: Low lung volumes and mixed interstitial and alveolar disease, left greater than right. Differential would include pneumonia, interstitial lung disease with acute alveolitis, in particular nonspecific interstitial pneumonitis, and less likely pulmonary edema.
--- NOTE | ~2023-10-30 | XR_ITS ---
EXAMINATION: XR CHEST CLINICAL INFORMATION: Pneumonia. COMPARISON: 10/30/2023 TECHNIQUE: Frontal view of the chest was obtained. FINDINGS: Again seen in the low lung volumes bilaterally with linear platelike atelectasis in the left lung base and partial collapse of the right lower lobe.. Mild elevation of the right hemidiaphragm is unchanged. No new airspace consolidation. No pneumothorax or pleural effusion. Cardiac and mediastinal contours are unchanged. No acute osseous findings. Degenerative disc disease present in the thoracic spine. 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 Bilateral chronic rotator cuff tears. Bones are osteopenic. XR/XR chest 1V IMPRESSION: Low lung volumes with persistent partial collapse of the right lower lobe and linear atelectasis in the left lung base. No new airspace consolidation.
--- NOTE | ~2023-10-30 | XR_ITS ---
EXAMINATION: XR CHEST CLINICAL INFORMATION: Hypoxia COMPARISON: Portable chest 11/11/2023 TECHNIQUE: AP upright portable view of the chest was obtained. FINDINGS: Lung volumes are low. There is linear platelike atelectasis in the left lung base. There is patchy opacity in the left perihilar area and left lower lobe consistent with atelectasis and/or pneumonia. There is also slight patchy opacity at the right lung base which may be due to compressive atelectasis and/or pneumonia. Again noted is elevation of the right hemidiaphragm. No pneumothorax or interstitial pulmonary edema. No pleural effusion. The cardiomediastinal silhouette is stable. No acute osseous abnormality. XR/XR chest 1V IMPRESSION: 1. Low lung volumes with bibasilar atelectasis and/or pneumonia, left greater than right. 2. No significant change in elevation of the right hemidiaphragm.
--- NOTE | ~2023-10-30 | XR_ITS ---
EXAMINATION: XR chest 1V CLINICAL INFORMATION: Cough COMPARISON: Prior chest x-ray 09/23/2023 TECHNIQUE: Single portable frontal view. Tubes and lines: None Lungs and pleura: Crowding of interstitial lung marking of the bases concerning for possible interstitial infiltrate or atelectasis. Blunting of right costophrenic angle probably small subpulmonic pleural effusion. Heart and mediastinum: The mediastinum is within normal limits.. Bones/soft tissue: Degenerative osteoarthritic changes of the shoulders and AC joints. XR/XR chest 1V IMPRESSION: 1. Crowding of interstitial lung markings at the bases concerning for possible interstitial infiltrate or atelectasis. 2. Blunting of right costophrenic angle probably small subpulmonic pleural effusion.
[2023-10-30 14:42] VITALS: BP 122/80; BP 133/67; PULSE 100; PULSE 103; RESP 18; TEMP 36.8; O2SAT 93; O2SAT 95; BMI 42.9
[2023-10-30 14:43] LABS: Glucose, Whole Blood 153 mg/dL (60-115)
--- NOTE | 2023-10-30 15:05 | ED_ITS ---
HPI - General Adult General Chief complaint: General Medical Stated complaint: AMS, bgl of 32, per ems Time Seen by Provider: 10/30/23 15:04 History of Present Illness ED Provider: Dr. Roby Chavez HPI narrative: 78-year-old female with pertinent history of paroxysmal atrial fibrillation on Eliquis, COPD not on home oxygen, gout, congestive heart failure unspecified EF, gout, insulin-dependent diabetes mellitus who was sent to the emergency department for evaluation of altered mentation. Patient was found to be hypoglycemic with a glucose of 32. Paramedics gave the patient D50 IV and the patient's point of care came up to 153. Patient told me that her afternoon she gave herself 15 units of insulin. She believes that she did launch but she has not certain. The patient was very tearful on presentation because she states that she did not want to go to the hospital. She told me that she was recently hospitalized here for cough and pneumonia however in reviewing our records, the last time he patient was admitted was 05/28/2024 mental status, hypoxia and COPD exacerbation. She states she has had a productive cough for 1 month. She states she had subjective fever and chills. She also had sweats. She states she would 1 episode of chest pain but can not tell me when she had this episode or characterize the pain. She denied pleuritic pain. She states however that she does have chronic back pain in her back pain is worse today and is 8/10. Related Data Previous Rx's ?Medication ?Instructions ?Recorded blood-glucose meter (OneTouch #1 ea 01/11/22 Ultra2 Meter kit) blood sugar diagnostic (FreeStyle #100 ea 03/09/22 Lite Strips) blood-glucose meter (FreeStyle #1 ea 03/09/22 Lite Meter kit) lancets 28 gauge (FreeStyle #100 ea 03/09/22 Lancets) flash glucose scanning reader #1 ea 05/29/22 (FreeStyle Sinan 2 [place]) flash glucose sensor (FreeStyle #1 ea 05/29/22 Sinan 2 Sensor kit) hospital bed #1 ea 12/06/22 acetaminophen 500 mg capsule 500 mg PO Q6H PRN fever 30 days 03/29/23 #120 caps famotidine 20 mg tablet 20 mg PO DAILY 90 days #90 tabs 05/01/23 apixaban 5 mg tablet (Eliquis) 5 mg PO BID 30 days #60 tabs 06/12/23 cyclobenzaprine 10 mg tablet 10 mg PO TID 30 days #90 tabs 06/18/23 dextromethorphan-guaifenesin 10 10 ml PO TID #237 mL 07/29/23 mg-100 mg/5 mL oral syrup prednisone 10 mg tablet 10 mg PO DAILY #5 tabs 07/29/23 insulin lispro 100 unit/mL 15 unit (0.15 mL) subcut TID #15 mL 08/07/23 subcutaneous pen ([facility] SoloStar U-100 Insulin lispro) furosemide 40 mg tablet 40 mg PO BID #180 tabs 08/10/23 albuterol sulfate 90 mcg/actuation 2 puff PO Q4H for wheezing 30 days 08/22/23 aerosol inhaler #8.5 grams gabapentin 600 mg tablet 600 mg PO TID 30 days #90 tabs 08/22/23 ipratropium 0.5 mg-albuterol 3 mg 3 ml inhalation Q6H PRN shortness 08/22/23 (2.5 mg base)/3 mL nebulization of breath or wheezing #180 mL soln metoprolol tartrate 25 mg tablet 25 mg PO TID 90 days #270 tabs 08/22/23 diltiazem HCl 240 mg 240 mg PO DAILY 90 days #90 caps 08/23/23 capsule,extended release 24 hr insulin glargine 100 unit/mL (3 25 unit (0.25 mL) subcut QAM 30 10/08/23 mL) subcutaneous pen days #15 mL docusate sodium 100 mg capsule 100 mg PO BID PRN constipation #60 10/09/23 caps allopurinol 300 mg tablet 150 mg (1/2 x 300 mg) PO DAILY #45 10/10/23 tabs paroxetine HCl 20 mg tablet 20 mg PO QAM #90 tabs 10/24/23 blood sugar diagnostic (OneTouch #3 ea 10/27/23 Ultra Test strips) lancets #100 ea 10/27/23 pen needle, diabetic 32 gauge x #50 ea 10/27/23 (BD Ultra-Fine Tamia Pen Needle) Allergies Allergy/AdvReac Type Severity Reaction Status Date / Time aspirin [Aspirin] Allergy Mild NAUSEA Verified 10/30/23 14:44 codeine [Codeine] Allergy Mild VOMITING Verified 10/30/23 14:44 Review of Systems 2 Review of Systems: Yes all other systems are reviewed and are negative [facility] Past Medical History [facility] Narrative: Social history: She denies tobacco, alcohol and drug use. Medical History CHF (congestive heart failure) A-fib Diabetes Cough Hypoventilation syndrome Skin cancer of trunk Skin cancer of face COPD (chronic obstructive pulmonary disease) Failed back syndrome Surgical History History of knee surgery History of shoulder surgery History of ankle surgery History of hip surgery Family History Family History Father No problems noted. Mother No problems noted. Daughter Opiate dependence Substance use disorder Family/Other FH: mental illness Mental health disorder Social History Social History Household Members: Other Household Members Other:: daughter Housing: House Do you presently have visiting nurse or other home services: No Unable to assess alcohol history related to: Unknown Alcohol intake: never Patient Tobacco Use Status: Former Tobacco user Tobacco use type: Cigarette Smoked in Last 30 Days: Yes e-Cigarette/Vaping Use: Never Used Use of substances other than those prescribed or required for medical reasons: No Advance Directives: No Advance Directives Information Provided: Yes Do you have a plan to hurt others: No Plan service: No Current occupational status: retired and disabled Cognitive needs: Yes Hearing needs: No Vision needs: Yes Physical Exam ED Vital Signs: Vital Signs - 24 hr 10/30/23 14:42 10/30/23 17:20 10/30/23 17:24 Temperature 98.3 F 97.8 F Pulse Rate 103 H 81 Respiratory Rate 18 21 H 21 H Blood Pressure 122/80 151/67 H Pulse Oximetry 93 88 L 90 L Oxygen Delivery Method Room Air Room Air Room Air 10/30/23 19:38 Temperature Pulse Rate 86 Respiratory Rate 26 H Blood Pressure Pulse Oximetry Oxygen Delivery Method BMI result Body Mass Index 42.9 Initial vital signs revealed a heart rate of 103, O2 saturation of 93% on room air. Repeat vital signs revealed elevated respiratory rate of 21 and an O2 saturation of 88% on room air, on 2 L she went up to 90% Exam: General: Awake, alert in no distress Head: Normocephalic, atraumatic EENT: PERRL, Lids normal, sclera normal, conjunctiva normal, nose normal , ears normal, throat without erythema or exudates Neck: Supple, no adenopathy Lung: Diffuse rhonchi and wheezing, no rales, breath sounds symmetric bilaterally Chest: symmetric movement, nontender Heart: regular rate and rhythm, normal S1, S2 no murmurs or rubs Abdomen: soft, non-tender, nondistended, normal bowel sounds Back: no vertebral tenderness, no CVAT Extremities: no deformities, moves all extremities symmetrically Neuro: Awake, alert, oriented, normal speech, cranial nerves intact, moves all extremities symmetrically Psych: Pleasant, cooperative Medications Administered Discontinued Medications Generic Name Dose Route Start Last Admin Trade Name Freq PRN Reason Stop Dose Admin Albuterol Sulfate 5 mg/ 0 mg 10/30/23 19:31 10/30/23 19:36 Albuterol/Ipratropium 3 ml INHALE 10/30/23 19:32 2.5 each ONCE ONE Administration Sodium Chloride 1,000 mls @ 999 mls/hr 10/30/23 18:44 10/30/23 19:03 Ns IV 10/30/23 19:44 999 mls/hr .Q1H1M STA Administration Methylprednisolone Sodium Succinate 125 mg 10/30/23 18:51 10/30/23 19:03 Methylprednisolone Sod Succ 125 Mg/2 Ml Vial IVPUSH 10/30/23 18:52 125 mg ONCE ONE Administration Morphine Sulfate 4 mg 10/30/23 15:46 10/30/23 15:54 Morphine Sulfate 4 Mg/Ml Cartridge IVPUSH 10/30/23 15:47 4 mg ONCE STA Administration Protocol Medical Decision Making Medical Decision Making MDM Narrative: 78-year-old female with pertinent history of paroxysmal atrial fibrillation on Eliquis, COPD not on home oxygen, gout, congestive heart failure unspecified EF, gout, insulin-dependent diabetes mellitus who was sent to the emergency department for evaluation of altered mentation, cough x1 month, worse over the last several days, subjective fever and chills and sweats. Patient reported that her glucose was greater than 300 and she gave herself 15 units of insulin. Patient was found to be hypoglycemic with a glucose of 32 and was treated by paramedics with D50 IV with point of care glucose of 153 after treat. Patient states she was recently in the hospital however there has no record of her being hospitalized here or being in the ER recently.Initial vital signs revealed a heart rate of 103, O2 saturation of 93% on room air. Repeat vital signs revealed elevated respiratory rate of 21 and an O2 saturation of 88% on room air, on 2 L she went up to 90%. Lung exam revealed diffuse wheezing and rhonchi with symmetric breath sounds. 20:05 Differential diagnosis: ?Includes but is not limited to accidental insulin overdose, hypoglycemia, bronchitis, pneumonia, chronic lung disease exacerbation, anemia, electrolyte abnormalities, renal failure Following evaluation was ordered: CBC, CMP, BNP, lactic acid, urinalysis, chest x-ray one view, EKG, blood cultures x2, COVID-19, influenza, RSV Patient was initially treated with the following: Normal saline x1 L, albuterol 7.5 mg with ipratropium 0.5 mg nebulizer, Solu-Medrol 125 mg IV, morphine 4 mg IV Course: 20:08 My independent interpretation the patient's laboratory evaluation is as follows: WBC elevated 23,300, with left shift 90 no anemia with an H&H of 13.1 and 42.2 but an elevated MCV of 102.4. CO2 elevated 31. BUN elevated 29 with a normal creatinine at 0.89. Lactic acid was normal 1.7. BNP was normal 22. My interpretation patient's chest x-ray was right lower lobe infiltrate. Radiologist felt that the patient had crowding of the interstitial lung markings at the bases concerning for possible infiltrate or atelectasis with blunting of the right costochondral angle consistent with small pleural effusion. Given her elevated WBC and possible x-ray findings consistent with pneumonia, the patient was treated with ceftriaxone 1 g IV and azithromycin 500 mg IV. Patient's O2 88% on room air and she was given oxygen 2 L via nasal cannula with improvement of her low O2 saturation to 92% 20:26 I did discuss the patient's presentation over tiger text with the covering hospitalist, Dr. Pal and the patient will be admitted for further treatment. Admission/Observation Consideration of admission/observation: Escalation of care including admission/observation considered Consult Healthcare Provider Management of the patient was discussed with: Hospitalist (Dr. Pal) Lab Data MDM Lab Attestation statement: I reviewed the patient's lab results. 10/30/23 16:21 10/30/23 16:21 Labs: Lab Results 10/30/23 10/30/23 10/30/23 Range/Units 14:40 15:16 16:21 WBC 23.3 H (4.8-10.8) X10*3/uL RBC 4.12 L (4.20-5.50) X10*6/uL Hgb 13.1 (12.0-16.0) g/dl Hct 42.2 (37.0-47.0) % MCV 102.4 H (80.0-98.0) fL MCH 31.8 (27.0-33.0) pg MCHC 31.0 (31.0-35.0) g/dl RDW 13.6 (11.0-16.0) % Plt Count 259 D (160-400) X10*3/uL MPV 9.7 (9.4-12.3) fL Immature Gran % (Auto) 0.9 H (0.0-0.4) % Neut % (Auto) 90.6 H (45-73) % Lymph % (Auto) 4.4 L (20-40) % [place] % (Auto) 3.9 (2-11) % Eos % (Auto) 0.0 (0-4) % Baso % (Auto) 0.2 (0-2) % Lymph # (Auto) 1.0 L (1.2-4.9) X10*3/uL [place] # (Auto) 0.9 (0.1-1.2) X10*3/uL Eos # (Auto) 0.0 (0.0-0.4) X10*3/uL Baso # (Auto) 0.0 (0.0-0.2) X10*3/uL Abs Immat Gran (auto) 0.21 H (0.00-0.03) X10*3/uL Absolute Neuts (auto) 21.1 H (2.0-8.3) x10*3/uL Absolute Nucleated RBC 0.000 (0.0-0.012) X10*3/uL Nucleated RBC % (auto) 0.0 (0.0-0.2) /100WBC Smear Tech's Comments VERIFIED Sodium 143 (135-145) mmol/L Potassium 4.9 (3.3-5.1) mmol/L Chloride 99 (96-108) mmol/L Carbon Dioxide 31 H (22-29) mmol/L Anion Gap 18 (12-20) BUN 29 H (9-16) mg/dL Creatinine 0.89 (0.5-1.4) mg/dL Estim Creat Clear Calc 63.2 Estimated GFR > 60 POC Glucose 153 H 99 (60-115) mg/dL Random Glucose 78 (60-115) mg/dL Lactic Acid (0.5-2.0) mmol/L Calcium 9.8 (8.4-10.2) mg/dL Total Bilirubin 0.3 (0.0-1.0) mg/dL AST 16 (5-31) U/L ALT 17 (0-31) U/L Alkaline Phosphatase 90 (39-117) U/L B-Natriuretic Peptide (<100) pg/mL Total Protein 7.2 (6.5-8.0) g/dL Albumin 4.3 (3.5-5.0) g/dL / Range/Units 19:11 WBC (4.8-10.8) X10*3/uL RBC (4.20-5.50) X10*6/uL Hgb (12.0-16.0) g/dl Hct (37.0-47.0) % MCV (80.0-98.0) fL MCH (27.0-33.0) pg MCHC (31.0-35.0) g/dl RDW (11.0-16.0) % Plt Count (160-400) X10*3/uL MPV (9.4-12.3) fL Immature Gran % (Auto) (0.0-0.4) % Neut % (Auto) (45-73) % Lymph % (Auto) (20-40) % [place] % (Auto) (2-11) % Eos % (Auto) (0-4) % Baso % (Auto) (0-2) % Lymph # (Auto) (1.2-4.9) X10*3/uL [place] # (Auto) (0.1-1.2) X10*3/uL Eos # (Auto) (0.0-0.4) X10*3/uL Baso # (Auto) (0.0-0.2) X10*3/uL Abs Immat Gran (auto) (0.00-0.03) X10*3/uL Absolute Neuts (auto) (2.0-8.3) x10*3/uL Absolute Nucleated RBC (0.0-0.012) X10*3/uL Nucleated RBC % (auto) (0.0-0.2) /100WBC Smear Tech's Comments Sodium (135-145) mmol/L Potassium (3.3-5.1) mmol/L Chloride (96-108) mmol/L Carbon Dioxide (22-29) mmol/L Anion Gap (12-20) BUN (9-16) mg/dL Creatinine (0.5-1.4) mg/dL Estim Creat Clear Calc Estimated GFR POC Glucose (60-115) mg/dL Random Glucose (60-115) mg/dL Lactic Acid 1.7 (0.5-2.0) mmol/L Calcium (8.4-10.2) mg/dL Total Bilirubin (0.0-1.0) mg/dL AST (5-31) U/L ALT (0-31) U/L Alkaline Phosphatase (39-117) U/L B-Natriuretic Peptide 22 (<100) pg/mL Total Protein (6.5-8.0) g/dL Albumin (3.5-5.0) g/dL Independent Interpretation I performed an independent interpretation of an: EKG and Plain X-Ray Interpretation: Chest x-ray is as follows: Right lower lobe infiltrate My independent interpretation patient's 12 EKG done at 19:14 hours is as follows: Normal sinus rhythm with a rate of 75, normal NV interval, QRS duration QTC interval, no ST segment depression, no significant T-wave abnormalities, Q-wave in lead 3 no PACs, no PVCs Radiology Impression Discussion of test interpretation with radiology: I have reviewed the radiologist's reading. Radiologist Impression: XR chest 1V IMPRESSION: 1. Crowding of interstitial lung markings at the bases concerning for possible interstitial infiltrate or atelectasis. 2. Blunting of right costophrenic angle probably small subpulmonic pleural effusion. Dictated By: Gypsy Fleming MD External Record Review External record reviewed: Inpatient record Chronic Conditions Patient?s care impacted by: Diabetes and Other (COPD) Critical Care Time Critical Care Time Critical Care Time: Yes Total Critical Care Time: 45 Attestation: Critical Care: The patient was critically ill with a high probability of imminent or life threatening deterioration. I spent greater than 30 minutes of discontinuous time evaluating the patient,delivering critical care at the bedside, discussing and evaluating pertinent data with consultants. Critical care time does not include time spent performing separately billable procedures or teaching. Total time spent performing critical care was 45 minutes. Discharge Plan Discharge Clinical Impression: Pneumonia, Hypoglycemia, Chronic lung disease Chronic back pain Qualifiers: Back pain location: low back pain Back pain laterality: bilateral Sciatica presence: without sciatica Qualified Code(s): M54.50 - Low back pain, unspecified Patient Disposition: Admitted As Inpatient Prescriptions: No Action (DME) blood-glucose meter [OneTouch Ultra2 Meter] Kit See Rx Instructions .ROUTE .MEDSUPPLY Qty: 1 0RF Hold Instructions: Doctor's Order Rx Instructions: As directed check the blood sugar TID (DME) hospital bed Kit See Rx Instructions .Route Qty: 1 0RF Rx Instructions: As directed acetaminophen 500 mg capsule 500 mg PO Q6H PRN (Reason: fever) 30 Days Qty: 120 1RF famotidine 20 mg tablet 20 mg PO DAILY 90 Days Qty: 90 2RF Eliquis 5 mg tablet 5 mg PO BID 30 Days Qty: 60 6RF cyclobenzaprine 10 mg tablet 10 mg PO TID 30 Days Qty: 90 3RF insulin lispro [Admelog SoloStar U-100 Insulin] 100 unit/mL insulin pen 15 unit subcut TID Qty: 15 1RF furosemide 40 mg tablet 40 mg PO BID Qty: 180 1RF diltiazem HCl 240 mg capsule,extended release 24hr 240 mg PO DAILY 90 Days Qty: 90 2RF insulin glargine 100 unit/mL (3 mL) insulin pen 25 unit subcut QAM 30 Days Qty: 15 1RF docusate sodium 100 mg capsule 100 mg PO BID PRN (Reason: constipation) Qty: 60 1RF allopurinol 300 mg tablet 150 mg PO DAILY Qty: 45 3RF paroxetine HCl 20 mg tablet 20 mg PO QAM Qty: 90 2RF (DME) pen needle, diabetic [BD Ultra-Fine Tamia Pen Needle] 32 gauge x 5/32 needle See Rx Instructions .ROUTE .MEDSUPPLY Qty: 50 3RF Rx Instructions: three times per day (DME) OneTouch Ultra Test Strip See Rx Instructions .Route Qty: 3 0RF Hold Instructions: Doctor's Order Rx Instructions: As directed check blood sugar 3 times a day (DME) lancets Misc See Rx Instructions .ROUTE .MEDSUPPLY Qty: 100 0RF Rx Instructions: As directed check the blood sugar TID prednisone 10 mg Tablet 10 mg PO DAILY Qty: 5 0RF dextromethorphan-guaifenesin 10-100 mg/5 mL Syrup 10 ml PO TID Qty: 237 0RF Rx Instructions: Take for 3 days and then as needed for cough metoprolol tartrate 25 mg tablet 25 mg PO TID 90 Days Qty: 270 1RF ipratropium-albuterol 0.5 mg-3 mg(2.5 mg base)/3 mL solution for nebulization 3 ml inhalation Q6H PRN (Reason: shortness of breath or wheezing) Qty: 180 2RF gabapentin 600 mg tablet 600 mg PO TID 30 Days Qty: 90 3RF albuterol sulfate 90 mcg/actuation HFA aerosol inhaler 2 puff PO Q4H 30 Days Qty: 8.5 3RF (DME) blood-glucose meter [FreeStyle Lite Meter] Kit See Rx Instructions .Route Qty: 1 0RF Rx Instructions: As directed (DME) FreeStyle Lite Strips Strip See Rx Instructions .ROUTE .MEDSUPPLY Qty: 100 3RF Rx Instructions: As directed (DME) lancets [FreeStyle Lancets] 28 gauge misc See Rx Instructions .ROUTE .MEDSUPPLY Qty: 100 3RF Rx Instructions: As directed (DME) FreeStyle Sinan 2 Sensor Kit See Rx Instructions .Route Qty: 1 6RF Rx Instructions: As directed (DME) FreeStyle Sinan 2 [place] Misc See Rx Instructions .Route Qty: 1 6RF Rx Instructions: As directed Print Language: [place]
[2023-10-30 15:21] LABS: Glucose, Whole Blood 99 mg/dL (60-115)
[2023-10-30] MEDS: Morphine Sulfate 4 MG/ML CARTRIDGE IVPUSH (15:54)
[2023-10-30 16:26] LABS: Basophils Percent Auto 0.2 % (0-2); Hematocrit 42.2 % (37.0-47.0); Hemoglobin 13.1 g/dl (12.0-16.0); Imm Gran Abs Auto 0.21 X10*3/uL (0.00-0.03); Imm Gran Pct Auto 0.9 % (0.0-0.4); Lymphocytes Percent Auto 4.4 % (20-40); MANUAL DIFF FLAG SCAN; Mean Corpuscular Hemoglobin 31.8 pg (27.0-33.0); Mean Corpuscular Volume 102.4 fL (80.0-98.0); Mean Platelet Volume 9.7 fL (9.4-12.3); Monocytes Absolute Auto 0.9 X10*3/uL (0.1-1.2); Monocytes Percent Auto 3.9 % (2-11); Neutrophils Absolute Auto 21.1 x10*3/uL (2.0-8.3); Neutrophils Percent Auto 90.6 % (45-73); Platelet Count 259 X10*3/uL (160-400); Red Blood Count 4.12 X10*6/uL (4.20-5.50); Red Cell Distribution Width 13.6 % (11.0-16.0); SCAN SMEAR FLAG 1; White Blood Count 23.3 X10*3/uL (4.8-10.8)
[2023-10-30 17:07] LABS: Alanine Aminotransferase 17 U/L (0-31); Albumin Level 4.3 g/dL (3.5-5.0); Alkaline Phosphatase 90 U/L (39-117); Anion Gap 18 (12-20); Aspartate Amino Transferase 16 U/L (5-31); Bilirubin Total 0.3 mg/dL (0.0-1.0); Blood Urea Nitrogen 29 mg/dL (9-16); Calcium 9.8 mg/dL (8.4-10.2); Carbon Dioxide 31 mmol/L (22-29); Chloride 99 mmol/L (96-108); Creatinine Clr Calc Pharmacy 63.2; Estimated Glomerular Filt Rate > 60; Glucose Random 78 mg/dL (60-115); Potassium 4.9 mmol/L (3.3-5.1); Sodium 143 mmol/L (135-145); Total Protein 7.2 g/dL (6.5-8.0)
[2023-10-30 17:16] LABS: SLIDE REVIEW VERIFIED
[2023-10-30 17:20] VITALS: RESP 21; O2SAT 88
[2023-10-30 17:24] VITALS: BP 151/67; PULSE 81; RESP 21; TEMP 36.6; O2SAT 90
--- NOTE | 2023-10-30 17:30 | PC.NURSE ---
pt moved from ed 17h to ed 17 noted to have cough and junkiness. dr spencer made aware pt placed on 2l nc placed on clinical geneticist order placed for chest xray
--- NOTE | 2023-10-30 18:28 | MHC.EDTECH ---
Patient was hooked up to the telemonitor, liquids are encouraged, blanked offered, patient refused.
--- NOTE | 2023-10-30 18:52 | ECG_ITS ---
Test Reason : DYSPNEA Blood Pressure : / mmHG Vent. Rate : 075 BPM Atrial Rate : 075 BPM P-R Int : 186 ms QRS Dur : 082 ms QT Int : 382 ms P-R-T Axes : 003 -04 054 degrees QTc Int : 426 ms Normal sinus rhythm Normal ECG When compared with ECG of 25-JUL-2023 02:03, Vent. rate has decreased BY 44 BPM Referred By: Roby Chavez Electronically Signed By:KATHERIN PERERA MD
[2023-10-30] MEDS: methylPREDNISolone Sod Succ 125 MG/2 ML VIAL IVPUSH (19:03)
[2023-10-30] MEDS: 0.9 % Sodium Chloride 1,000 ML 999 ML IV (19:03)
[2023-10-30] MEDS: Albuterol Sulfate 5 MG, Albuterol/Iprat 2.5/0.5MG 3 ML 3 ML INHALE (19:36)
[2023-10-30 19:38] VITALS: PULSE 86; RESP 26; O2SAT 95
[2023-10-30 19:39] LABS: Lactic Acid 1.7 mmol/L (0.5-2.0)
[2023-10-30 19:50] LABS: B Type Natriuretic Peptide 22 pg/mL (<100)
--- NOTE | 2023-10-30 19:51 | PC.NURSE ---
delay in collection of blood cultures due to iv access line blowing. iv replaced one set obtained. 2nd set delay due to multiple attempts from multiple ed techs. dr spencer made aware states if we are attempting 2nd set of blood cultures attempt first and update md as needed
[2023-10-30 19:59] LABS: Appearance Urine Clear; Color Urine Yellow; Glucose Urine UA Negative (Negative); Leukocyte Esterase Urine Negative (Negative); Nitrite Urine Negative (Negative); Urine Blood Negative (Negative); Urine Ketones Negative (Negative); Urine Protein Negative (Neg-Trace)
[2023-10-30] MEDS: cefTRIAXone sodium 1 GM in 0.9 % Sodium Chloride 50 ML IV (20:03)
[2023-10-30] MEDS: Azithromycin 500 MG in 0.9 % Sodium Chloride 250 ML 125 MG IV (20:47)
--- NOTE | 2023-10-30 21:00 | P.HPHOSP_ITS ---
History of Present Illness Date of Service: 10/30/23 Chief Complaint: Dyspnea This is a 78-year-old female with pertinent history of paroxysmal atrial fibrillation on Eliquis, COPD not on home oxygen, gout, congestive heart failure, unspecified EF, gout, insulin-dependent diabetes mellitus who was sent to the emergency department for evaluation of altered mentation. Patient was found to be hypoglycemic as per EMS with blood glucose 32. Patient was given D50 IV with improvement in patient's blood glucose and improvement in mentation. Patient stated that she gave herself 15 units of Lantus in the afternoon. She has been complaining of dyspnea that has been ongoing for about 2 weeks. This has been associated with productive cough with yellowish sputum production. Also has associated wheezing. Admits chills but no documented temperature. No chest discomfort, palpitations, abdominal pain, changes in urinary or bowel habits. In the emergency department, patient was found to be septic and imaging concerning for pneumonia. Also was found to be wheezing and given multiple DuoNeb treatments with IV Solu-Medrol. Review of Systems 2 Constitutional: Constitutional: Reports fatigue, Reports lethargy, Reports poor appetite and Reports weakness Cardiovascular: Cardiovascular: Reports dyspnea on exertion Respiratory: Respiratory: Reports cough, Reports dyspnea on exertion and Reports wheezing Neurologic: Reports weakness Endocrine: Endocrine: Reports fatigue Allergic/Immunologic: Allergic/Immunologic: Reports wheezing [facility] Medical History CHF (congestive heart failure) A-fib Diabetes Cough Hypoventilation syndrome Skin cancer of trunk Skin cancer of face COPD (chronic obstructive pulmonary disease) Failed back syndrome Family History Father No problems noted. Mother No problems noted. Daughter Opiate dependence Substance use disorder Family/Other FH: mental illness Mental health disorder Surgical History History of knee surgery History of shoulder surgery History of ankle surgery History of hip surgery Social History Household Members: Other Household Members Other:: daughter Housing: House Do you presently have visiting nurse or other home services: No Unable to assess alcohol history related to: Unknown Alcohol intake: never Patient Tobacco Use Status: Former Tobacco user Tobacco use type: Cigarette Smoked in Last 30 Days: Yes e-Cigarette/Vaping Use: Never Used Use of substances other than those prescribed or required for medical reasons: No Advance Directives: No Advance Directives Information Provided: Yes Do you have a plan to hurt others: No Plan service: No Current occupational status: retired and disabled Cognitive needs: Yes Hearing needs: No Vision needs: Yes Meds Allergies Allergy/AdvReac Type Severity Reaction Status Date / Time aspirin [Aspirin] Allergy Mild NAUSEA Verified 10/30/23 14:44 codeine [Codeine] Allergy Mild VOMITING Verified 10/30/23 14:44 Active Medications: Current Medications Acetaminophen (Acetaminophen 325 Mg Tablet) 650 mg PO Q6H PRN PRN Reason: Pain, Mild (Pain Scale 1-3) Melatonin (Melatonin 3 Mg Tablet) 6 mg PO BEDTIME PRN PRN Reason: Insomnia Morphine Sulfate (Morphine Sulfate Immed Release 15 Mg Tablet) 15 mg PO Q4H PRN PRN Reason: Pain, Severe (Pain Scale 7-10) Ondansetron HCl (Ondansetron Hcl 4 Mg/2 Ml Vial) 4 mg IVPUSH Q8H PRN PRN Reason: Nausea and Vomiting Sodium Chloride (0.9 % Sodium Chloride Flush 3 Ml Syringe) 3 ml IVFLUSH QSHIFT [facility] Physical Exam 2 Vital Signs and Narrative: Vital Signs: Last Vital Signs Temp 97.8 F 10/30/23 17:24 Pulse 86 10/30/23 19:38 Resp 26 H 10/30/23 19:38 BP 151/67 H 10/30/23 17:24 Pulse Ox 90 L 10/30/23 17:24 O2 Del Method Room Air 10/30/23 17:24 BMI result Body Mass Index 42.9 Elderly female lying in bed in mild distress on supplemental oxygen Neck supple Tachycardic with irregular rhythm Bilateral wheezing, crackles with tachypnea Abdomen soft, nontender Patient is awake and alert and oriented to self and place, no focal motor weakness No pedal edema Results Labs 10/30/23 16:21 10/30/23 16:21 Labs: Laboratory Results - last 24 hr 10/30/23 10/30/23 10/30/23 14:40 15:16 16:21 MCV 102.4 H MCH 31.8 MCHC 31.0 RDW 13.6 Plt Count 259 D MPV 9.7 Immature Gran % (Auto) 0.9 H Neut % (Auto) 90.6 H Lymph % (Auto) 4.4 L Bath % (Auto) 3.9 Eos % (Auto) 0.0 Baso % (Auto) 0.2 Lymph # (Auto) 1.0 L Bath # (Auto) 0.9 Eos # (Auto) 0.0 Baso # (Auto) 0.0 Abs Immat Gran (auto) 0.21 H Absolute Neuts (auto) 21.1 H Absolute Nucleated RBC 0.000 Nucleated RBC % (auto) 0.0 Smear Tech's Comments VERIFIED Anion Gap 18 Estim Creat Clear Calc 63.2 Estimated GFR > 60 POC Glucose 153 H 99 Random Glucose 78 Lactic Acid Calcium 9.8 Total Bilirubin 0.3 AST 16 ALT 17 Alkaline Phosphatase 90 B-Natriuretic Peptide Total Protein 7.2 Albumin 4.3 Urine Color Urine Appearance Urine pH Ur Specific Staples Urine Protein Urine Glucose (UA) Urine Ketones Urine Blood Urine Nitrite Ur Leukocyte Esterase 10/30/23 10/30/23 19:11 19:28 MCV MCH MCHC RDW Plt Count MPV Immature Gran % (Auto) Neut % (Auto) Lymph % (Auto) Bath % (Auto) Eos % (Auto) Baso % (Auto) Lymph # (Auto) Bath # (Auto) Eos # (Auto) Baso # (Auto) Abs Immat Gran (auto) Absolute Neuts (auto) Absolute Nucleated RBC Nucleated RBC % (auto) Smear Tech's Comments Anion Gap Estim Creat Clear Calc Estimated GFR POC Glucose Random Glucose Lactic Acid 1.7 Calcium Total Bilirubin AST ALT Alkaline Phosphatase B-Natriuretic Peptide 22 Total Protein Albumin Urine Color Yellow Urine Appearance Clear Urine pH 7.0 Ur Specific Staples 1.010 Urine Protein Negative Urine Glucose (UA) Negative Urine Ketones Negative Urine Blood Negative Urine Nitrite Negative Ur Leukocyte Esterase Negative Imaging Radiologist's Impressions: Impressions Chest X-Ray 10/30/23 18:05 IMPRESSION: 1. Crowding of interstitial lung markings at the bases concerning for possible interstitial infiltrate or atelectasis. 2. Blunting of right costophrenic angle probably small subpulmonic pleural effusion. Assessment and Plan (1) Hypoglycemia: Status: Acute (2) Pneumonia: Qualifiers: Laterality: right Lung location: lower lobe of lung Pneumonia type: d ue to unspecified organism Qualified Code(s): J18.9 - Pneumonia, unspecified organism Status: Acute (3) COPD exacerbation: Status: Acute Plan This is a 78-year-old female with pertinent history of paroxysmal atrial fibrillation on Eliquis, COPD not on home oxygen, gout, congestive heart failure unspecified EF, gout, insulin-dependent diabetes mellitus who was sent to the emergency department for evaluation of altered mentation. #. Acute hypoxemic respiratory failure secondary to community-acquired pneumonia leading to acute exacerbation of COPD: Will admit patient with supplemental oxygen. Initiating systemic steroids, scheduled and p.r.n. DuoNebs. Monitor supplemental oxygen and wean as tolerated. Continue home inhaler. Initiating empiric IV antibiotics #. Sepsis due to community-acquired pneumonia: Resuscitated with IV crystalloids. Lactic acid and blood culture obtained. Obtaining sputum culture #. Acute metabolic encephalopathy in the setting of hypoglycemia: Likely in the setting of infection. Mentation improved with resolution of hypoglycemia. Close monitoring her blood glucose #. Insulin-dependent diabetes mellitus: Reduce home basal insulin in the setting of above. Initiating Accu-Cheks with sliding scale insulin #. Paroxysmal atrial fibrillation: Patient on Eliquis, rate controlled in the ER #. Gout: On allopurinol #. Congestive heart failure, unspecified EF: No decompensation during admission. Continue home Lasix Med rec pending DVT prophylaxis: Eliquis Full code. Admit as inpatient and will require two night minimum hospital stay for supplemental oxygen, IV steroids, IV antibiotics (as above), which is not possible in a lesser acute setting. Quality Stroke Does the patient have a stroke diagnosis?: No VTE Prior VTE?: No VTE Risk Level:: Medical - moderate - high VTE Device Contraindication: Treatment Not Indicated VTE Drug Contraindication: N/A - Med Ordered
--- NOTE | 2023-10-30 21:21 | PHA.MEDREC ---
Pharmacy Consult ? Medication Reconciliation Pharmacy has completed the medication reconciliation. Patient had no idea what they were on, told me to use [facility]. Used current claims, patients Eliquis is out of date but patient is on it per report from hospitalist.
[2023-10-30 21:50] VITALS: BP 123/54; PULSE 96; RESP 22; TEMP 36.9; O2SAT 97
[2023-10-30 21:51] LABS: Glucose, Whole Blood 223 mg/dL (60-115)
[2023-10-30] MEDS: oxyCODONE HCl Immed Release 5 MG TABLET PO (21:52)
[2023-10-30] MEDS: Insulin Lispro 100 UNIT/ML 3 ML VIAL SUBCUT (21:53)
[2023-10-30 22:03] LABS: Influenza A PCR NEGATIVE (Negative); Influenza B PCR NEGATIVE (Negative); Resp Syncy Virus RNA Qual PCR NEGATIVE (Negative); SARS COV2 PCR INHOUSE NEGATIVE (Negative)
--- NOTE | 2023-10-30 23:58 | MHC.EDTECH ---
Patient ambulated to restroom with difficulty breathing, Kathy marroquin. Purewick applied, shabanaode in room.
[2023-10-31] VITALS (16 sets, daily range): BP systolic 122–146; BP diastolic 64–88; PULSE 96–121; RESP 13–32; TEMP 36–37.3; O2SAT 94–97
--- NOTE | 2023-10-31 00:28 | PC.NURSE ---
pt reports 8/10chronic back pain, at baseline pt does not get below 4/10 pain. pt educated prn oxy not due at this time for pain level, in agreement for tylenol to get the edge off as states tylenol is helpful.
--- NOTE | 2023-10-31 00:36 | PC.NURSE ---
expiratory wheezing noted; crackles at bilat bases. pt is 95% on 2L NC. recommended repeat BNP/Lasix as well as PRN breathing tx to Dr. Pal. continue with prn breathing tx at this time. RT notified. will reassess. pt requests medicine for cough as well, Dr. Pal aware.
[2023-10-31] MEDS: Albuterol/Iprat 2.5/0.5MG 3 ML AMPUL.NEB INHALE ×5 (00:41→19:55)
[2023-10-31] MEDS: guaiFENesin 100 MG/5 ML LIQUID PO ×2 (00:41→10:19)
[2023-10-31] MEDS: Acetaminophen 325 MG TABLET 650 MG PO ×3 (00:41→21:05)
[2023-10-31] MEDS: oxyCODONE HCl Immed Release 5 MG TABLET PO ×5 (02:00→21:04)
--- NOTE | 2023-10-31 02:00 | PC.NURSE ---
pt given prn oxy per patient request, states helpful with pain, will reassess.
[2023-10-31 05:15] LABS: Hematocrit 37.7 % (37.0-47.0); Imm Gran Abs Auto 0.05 X10*3/uL (0.00-0.03); Imm Gran Pct Auto 0.4 % (0.0-0.4); Lymphocytes Absolute Auto 0.5 X10*3/uL (1.2-4.9); MANUAL DIFF FLAG SCAN; Mean Corpuscular HGB Conc 31.8 g/dl (31.0-35.0); Mean Corpuscular Hemoglobin 31.9 pg (27.0-33.0); Mean Corpuscular Volume 100.3 fL (80.0-98.0); Mean Platelet Volume 10.3 fL (9.4-12.3); Monocytes Absolute Auto 0.1 X10*3/uL (0.1-1.2); Monocytes Percent Auto 0.4 % (2-11); Neutrophils Absolute Auto 10.8 x10*3/uL (2.0-8.3); Neutrophils Percent Auto 95.2 % (45-73); Platelet Count 231 X10*3/uL (160-400); Red Blood Count 3.76 X10*6/uL (4.20-5.50); Red Cell Distribution Width 13.6 % (11.0-16.0); SCAN SMEAR FLAG 1; White Blood Count 11.4 X10*3/uL (4.8-10.8)
[2023-10-31 05:42] LABS: Anion Gap 18 (12-20); Blood Urea Nitrogen 27 mg/dL (9-16); Carbon Dioxide 23 mmol/L (22-29); Chloride 101 mmol/L (96-108); Creatinine Clr Calc Pharmacy 66.2; Estimated Glomerular Filt Rate > 60; Glucose Random 263 mg/dL (60-115); Sodium 137 mmol/L (135-145)
[2023-10-31 05:47] LABS: SLIDE REVIEW VERIFIED
[2023-10-31 07:22] LABS: Glucose, Whole Blood 256 mg/dL (60-115)
[2023-10-31] MEDS: Insulin Lispro 100 UNIT/ML 3 ML VIAL SUBCUT ×4 (07:28→21:03)
[2023-10-31] MEDS: methylPREDNISolone Sod Succ 40 MG/ML VIAL IVPUSH ×2 (07:29→18:42)
[2023-10-31] MEDS: 0.9 % Sodium Chloride Flush 3 ML SYRINGE IVFLUSH ×2 (07:29→15:07)
[2023-10-31] MEDS: Insulin Glargine,Hum.rec.anlog 100 UNIT/ML 10 ML VIAL 10 UNIT SUBCUT (09:32)
--- NOTE | 2023-10-31 09:42 | P.PNIM_ITS ---
Subjective Subjective Date of Service: 10/31/23 Interval History: Complaining of shortness of breath is very anxious about her appointment today with Dr. Diamond for and requesting to get it canceled since the not want to be billed, complaining of persistent cough, concerned of recurrent hospitalization with similar episodes requiring hospitalization at [facility] as well as [place], complaining of back pain, denies nausea vomiting, no fevers, no chills, not on home O2 Review of Systems All other system reviewed and negative Physical Exam 2 Vital Signs: Vital Signs: Last Vital Signs Temp 99.1 F 10/31/23 07:09 Pulse 116 H 10/31/23 07:54 Resp 16 10/31/23 09:32 BP 141/88 H 10/31/23 07:09 Pulse Ox 95 10/31/23 07:09 O2 Del Method Room Air 10/31/23 07:09 O2 Flow Rate 2 10/30/23 21:50 BMI result Body Mass Index 42.9 Const: Other: General awake alert x3, anxious, in no acute distress. Neck supple no JVD. CVS regular rate rhythm, tachy regular Respiratory lungs bilateral expiratory wheeze,no respiratory distress, no rales Gastrointestinal abdomen soft, non tender, bowel sounds audible . Extremities no edema. Neuro non focal Skin no rash Objective Data Active Medications Acetaminophen (Acetaminophen 325 Mg Tablet) 650 mg PO Q6H PRN PRN Reason: Pain, Mild (Pain Scale 1-3) Last Admin: 10/31/23 07:31 Dose: 650 mg Documented By: JAVIER Albuterol/Ipratropium (Albuterol/Iprat 2.5/0.5mg 3 Ml Ampul.Neb) 3 ml INHALE RQ4H WHILE AWAKE [facility] Last Admin: 10/31/23 07:53 Dose: 3 ml Documented By: SORAYA Albuterol/Ipratropium (Albuterol/Iprat 2.5/0.5mg 3 Ml Ampul.Neb) 3 ml INHALE Q4H PRN PRN Reason: Wheezing Last Admin: 10/31/23 00:41 Dose: 3 ml Documented By: NORA Albuterol/Ipratropium (Albuterol/Iprat 2.5/0.5mg 3 Ml Ampul.Neb) 3 ml INHALE Q6H PRN PRN Reason: shortness of breath or wheezing Allopurinol (Allopurinol 300 Mg Tablet) 150 mg PO DAILY [facility] Apixaban (Apixaban 5 Mg Tablet) 5 mg PO BID [facility] Cyclobenzaprine HCl (Cyclobenzaprine Hcl 10 Mg Tablet) 10 mg PO TID JESSICA Diltiazem HCl (Diltiazem Hcl Cd 240 Mg Cap.Er.Deg) 240 mg PO DAILY [facility]; Protocol Docusate Sodium (Docusate Sodium 100 Mg Capsule) 100 mg PO BID PRN PRN Reason: constipation Famotidine (Famotidine 20 Mg Tablet) 20 mg PO DAILY JESSICA Furosemide (Furosemide 40 Mg Tablet) 40 mg PO BID JESSICA; Protocol Gabapentin (Gabapentin 600 Mg Tablet) 600 mg PO TID [facility] Glucose (Glucose Gel 15 Gm Gel..Gram.) 15 gm PO Q15M PRN; Protocol PRN Reason: per Hypoglycemia Standing Ord. Guaifenesin (Guaifenesin 100 Mg/5 Ml Liquid) 5 ml PO Q6H PRN PRN Reason: Cough Last Admin: 10/31/23 00:41 Dose: 5 ml Documented By: ARINA Ceftriaxone Sodium 1 gm/ (Sodium Chloride) 50 mls @ 100 mls/hr IV Q24H [facility] Azithromycin 500 mg/ Sodium (Chloride) 250 mls @ 125 mls/hr IV Q24H [facility] Dextrose (D10) 250 mls @ 750 mls/hr IV Q15M PRN; Protocol PRN Reason: per Hypoglycemia Standing Ord. Insulin Glargine (Insulin Glargine,Hum.Rec.Anlog 100 Unit/Ml 10 Ml Vial) 10 unit SUBCUT DAILY [facility] Last Admin: 10/31/23 09:32 Dose: 10 unit Documented By: TINO Insulin Human Lispro (Insulin Lispro 100 Unit/Ml 3 Ml Vial) 0 unit SUBCUT QIDACHS [facility]; Protocol Last Admin: 10/31/23 07:28 Dose: 6 unit Documented By: JAVIER Melatonin (Melatonin 3 Mg Tablet) 6 mg PO BEDTIME PRN PRN Reason: Insomnia Methylprednisolone Sodium Succinate (Methylprednisolone Sod Succ 40 Mg/Ml Vial) 40 mg IVPUSH Q12H [facility] Last Admin: 10/31/23 07:29 Dose: 40 mg Documented By: JAVIER Nicotine (Nicotine 14 Mg Patch.Td24) mg TRANSDERMA DAILY [facility] Ondansetron HCl (Ondansetron Hcl 4 Mg/2 Ml Vial) 4 mg IVPUSH Q8H PRN PRN Reason: Nausea and Vomiting Oxycodone HCl (Oxycodone Hcl Immed Release 5 Mg Tablet) 5 mg PO Q4H PRN PRN Reason: Pain, Moderate(Pain Scale 4-6) Last Admin: 10/31/23 07:25 Dose: 5 mg Documented By: JAVIER Paroxetine HCl (Paroxetine Hcl 20 Mg Tablet) 20 mg PO QAM JESSICA Sodium Chloride (0.9 % Sodium Chloride Flush 3 Ml Syringe) 3 ml IVFLUSH QSHIFT JESSICA Last Admin: 10/31/23 07:29 Dose: 3 ml Documented By: JAVIER Labs 10/31/23 04:03 10/31/23 04:03 Labs: Laboratory Results - last 24 hr 10/30/23 10/30/23 10/30/23 14:40 15:16 16:21 MCV 102.4 H MCH 31.8 MCHC 31.0 RDW 13.6 Plt Count 259 D MPV 9.7 Immature Gran % (Auto) 0.9 H Neut % (Auto) 90.6 H Lymph % (Auto) 4.4 L [place] % (Auto) 3.9 Eos % (Auto) 0.0 Baso % (Auto) 0.2 Lymph # (Auto) 1.0 L [place] # (Auto) 0.9 Eos # (Auto) 0.0 Baso # (Auto) 0.0 Abs Immat Gran (auto) 0.21 H Absolute Neuts (auto) 21.1 H Absolute Nucleated RBC 0.000 Nucleated RBC % (auto) 0.0 Smear Tech's Comments VERIFIED Anion Gap 18 Estim Creat Clear Calc 63.2 Estimated GFR > 60 POC Glucose 153 H 99 Random Glucose 78 Lactic Acid Calcium 9.8 Total Bilirubin 0.3 AST 16 ALT 17 Alkaline Phosphatase 90 B-Natriuretic Peptide Total Protein 7.2 Albumin 4.3 Urine Color Urine Appearance Urine pH Ur Specific [place] Urine Protein Urine Glucose (UA) Urine Ketones Urine Blood Urine Nitrite Ur Leukocyte Esterase Influenza Type A (PCR) Influenza Type B (PCR) RSV RNA Qual (PCR) SARS-CoV-2 RNA (RT-PCR) 10/30/23 10/30/23 10/30/23 19:11 19:28 21:07 MCV MCH MCHC RDW Plt Count MPV Immature Gran % (Auto) Neut % (Auto) Lymph % (Auto) [place] % (Auto) Eos % (Auto) Baso % (Auto) Lymph # (Auto) [place] # (Auto) Eos # (Auto) Baso # (Auto) Abs Immat Gran (auto) Absolute Neuts (auto) Absolute Nucleated RBC Nucleated RBC % (auto) Smear Tech's Comments Anion Gap Estim Creat Clear Calc Estimated GFR POC Glucose Random Glucose Lactic Acid 1.7 Calcium Total Bilirubin AST ALT Alkaline Phosphatase B-Natriuretic Peptide 22 Total Protein Albumin Urine Color Yellow Urine Appearance Clear Urine pH 7.0 Ur Specific [place] 1.010 Urine Protein Negative Urine Glucose (UA) Negative Urine Ketones Negative Urine Blood Negative Urine Nitrite Negative Ur Leukocyte Esterase Negative Influenza Type A (PCR) NEGATIVE Influenza Type B (PCR) NEGATIVE RSV RNA Qual (PCR) NEGATIVE SARS-CoV-2 RNA (RT-PCR) NEGATIVE 10/30/23 10/31/23 10/31/23 21:46 04:03 07:16 MCV 100.3 H MCH 31.9 MCHC 31.8 RDW 13.6 Plt Count 231 MPV 10.3 Immature Gran % (Auto) 0.4 Neut % (Auto) 95.2 H Lymph % (Auto) 4.0 L [place] % (Auto) 0.4 L Eos % (Auto) 0.0 Baso % (Auto) 0.0 Lymph # (Auto) 0.5 L [place] # (Auto) 0.1 Eos # (Auto) 0.0 Baso # (Auto) 0.0 Abs Immat Gran (auto) 0.05 H Absolute Neuts (auto) 10.8 H Absolute Nucleated RBC 0.000 Nucleated RBC % (auto) 0.0 Smear Tech's Comments VERIFIED Anion Gap 18 Estim Creat Clear Calc 66.2 Estimated GFR > 60 POC Glucose 223 H 256 H Random Glucose 263 H Lactic Acid Calcium 9.0 D Total Bilirubin AST ALT Alkaline Phosphatase B-Natriuretic Peptide Total Protein Albumin Urine Color Urine Appearance Urine pH Ur Specific [place] Urine Protein Urine Glucose (UA) Urine Ketones Urine Blood Urine Nitrite Ur Leukocyte Esterase Influenza Type A (PCR) Influenza Type B (PCR) RSV RNA Qual (PCR) SARS-CoV-2 RNA (RT-PCR) Assessment and Plan (1) COPD exacerbation: Status: Acute Plan 78-year-old female with pertinent history of paroxysmal atrial fibrillation on Eliquis, COPD not on home oxygen, gout, congestive heart failure unspecified EF, gout, insulin-dependent diabetes mellitus who was sent to the emergency department for evaluation of altered mentation. #. Acute hypoxemic respiratory failure secondary to community-acquired pneumonia leading to acute exacerbation of COPD: Complaining of shortness of breath and cough denies fever, no chills Chest x-ray showed bibasilar interstitial infiltrate or atelectasis Continue IV steroids 40 mg q.12 hours, scheduled and p.r.n. DuoNebs. Wean oxygen as tolerated, not on home O2. Continue IV azithromycin and IV ceftriaxone started on 10/30 Patient previously was on Breo 1 inhalation daily, Incruse Ellipta 1 inhalation daily, ProAir 2 puffs q.4 to 6 hours as needed and theophylline, currently patient not on her baseline inhalers. Case discussed with primary warehouse receiving clerk Dr. Diamond he recommend to resume home inhalers and outpatient follow-up with him in 2 weeks # bacteremia 1/2 blood culture positive for Gram-positive cocci will empirically treat with IV vancomycin and follow final blood culture report #. Sepsis due to community-acquired pneumonia: Persistent tachycardia and tachypnea , normal lactic acid #. Acute metabolic encephalopathy in the setting of hypoglycemia: Resolved , will monitor blood sugars and oxygen. #. Insulin-dependent diabetes mellitus: Reduce home basal insulin in the setting of above. Initiating Accu-Cheks with sliding scale insulin #. Paroxysmal atrial fibrillation: Continue Eliquis and Cardizem , mild tachycardia will follow #. Gout: No acute flare, continue allopurinol #. Congestive heart failure, unspecified EF: No decompensation during admission. Continue home Lasix. # chronic pain continue gabapentin DVT prophylaxis: Eliquis Full code. Patient will require continued inpatient hospitalization for supplemental oxygen, IV steroids, IV antibiotics (as above), which is not possible in a lesser acute setting. Quality Stroke Does the patient have a stroke diagnosis?: No VTE Prior VTE?: No VTE Risk Level:: Medical - moderate - high VTE Device Contraindication: Treatment Not Indicated VTE Drug Contraindication: N/A - Med Ordered
[2023-10-31] MEDS: dilTIAZem HCL CD 240 MG CAP.ER.DEG PO (10:13)
[2023-10-31] MEDS: Apixaban 5 MG TABLET PO ×2 (10:13→21:05)
[2023-10-31] MEDS: Nicotine 14 MG PATCH.TD24 TRANSDERMA (10:14)
[2023-10-31] MEDS: PARoxetine HCL 20 MG TABLET PO (10:14)
[2023-10-31 12:35] LABS: Glucose, Whole Blood 319 mg/dL (60-115)
--- NOTE | 2023-10-31 13:03 | MHC.CM.PN ---
PT LIVED ALONE HAS A VNA MIGHT BE [facility] DGTER WILL TRANS[PORT PT HOME WHEN DCD
--- NOTE | 2023-10-31 13:17 | PC.NURSE ---
re: late admin of SS insulin- lunch trays rec at 1310 pyxis is out of lispro- pharmacy notified
[2023-10-31] MEDS: Cyclobenzaprine HCl 10 MG TABLET PO ×2 (15:06→21:04)
[2023-10-31] MEDS: Gabapentin 600 MG TABLET PO ×2 (15:06→21:04)
[2023-10-31] MEDS: vancomycin/NS 2,000 MG/500 ML PLAST..BAG 250 MG IV (17:06)
--- NOTE | 2023-10-31 17:20 | PHA.PROG ---
Admission Date/Time: October 30, 2023 20:57 Indication: BACTEREMIA Weight in k.398 kg Adjusted body weight in K.179 [place] body weight in Kg: Obesity Dosing Indication % IBW: Serum Creatinine - Last 168 Hours 10/30/23 10/31/23 16:21 04:03 Creatinine 0.89 0.85 Estimated CrCl and GFR - Last 168 Hours 10/30/23 10/31/23 16:21 04:03 Estim Creat Clear Calc 63.2 66.2 Estimated GFR > 60 > 60 Vancomycin Loading Dose: 1999 Current Vancomycin Dosing Regimen: 750 Q12h Vancomycin Monitoring using AUC goal of 400 - 600 range with trough as surrogate marker: 559 Date and Time for next Vancomycin Level to be drawn: 10/31 @1500 Pharmacist Comments on Vancomycin Plan: Vancomycin dosing will take advantage of [employer] as a clinical decision support tool that uses Bayesian modeling to calculate individual patient's pharmacokinetic parameters and forecast the patient's drug concentration time course with the target goal AUC 24 range of 400 - 600 mg/L/hr.
--- NOTE | 2023-10-31 18:13 | P.CDIM_ITS ---
PROVIDER RESPONSE TEXT: To clarify, the appropriate diagnosis supported by the clinical indicators: Obesity Due to excess calories QUERY TEXT: PHYSICIAN'S DOCUMENTATION REQUEST Date of Query: 10/31/2023 01:43 PM EDT Patient Name: Ellen Lee Admit Date: 10/31/2023 Dear Toribio Cardenas, A review of the medical record indicates additional documentation may be needed. Please review below and update the documentation accordingly. Clinical Indicators: Height: ( ) 5'4 Weight: ( ) 113.398 kg BMI: ( ) 42.9 Other Clinical Notes Supporting Significance of the BMI: No nutrition assessment If possible, please provide an associated diagnosis related to the abnormal BMI, such as: Overweight Obesity Due to excess calories Obesity Drug induced Obesity Due to other cause Specify the other cause Severe or Morbid Obesity With alveolar hypoventilation Severe or Morbid Obesity Without alveolar hypoventilation BMI is not significant Other (explain) Clinically unable to determine (explain) Thank you, Susan Marshall RN Use of terms such as suspected, likely, concern for, or probable (associated with a specific diagnosi s that is being evaluated, monitored, or treated as if it exists) are acceptable and can be coded in the inpatient se tting, when documented at the time of discharge. Please use your independent medical judgment in providing your response. THIS QUERY IS PART OF THE PERMANENT MEDICAL RECORD
--- NOTE | 2023-10-31 20:21 | MHC.EDTECH ---
This tech took over care of patient at 1900,patient has a pure-wick in place done by previous shift,emptied 700 from suction canister at 1900. Hourly rounds and vitals completed.
--- NOTE | 2023-10-31 20:29 | MHC.EDTECH ---
POC was taken and is 355,RN Paz made aware, Emptied 750MLS of yellow urine from suction canister,patient repositioned to comfort and is clean and dry.
[2023-10-31 20:36] LABS: Glucose, Whole Blood 355 mg/dL (60-115)
[2023-10-31 20:36] LABS: Glucose, Whole Blood 277 mg/dL (60-115)
[2023-10-31] MEDS: cefTRIAXone sodium 1 GM in 0.9 % Sodium Chloride 50 ML IV (21:03)
[2023-10-31] MEDS: Furosemide 40 MG TABLET PO (21:04)
[2023-10-31] MEDS: Azithromycin 500 MG in 0.9 % Sodium Chloride 250 ML 125 MG IV (21:48)
[2023-11-01] VITALS (11 sets, daily range): BP systolic 119–142; BP diastolic 60–78; PULSE 88–109; RESP 16–20; TEMP 36.1–36.9; O2SAT 93–98
[2023-11-01] MEDS: 0.9 % Sodium Chloride Flush 3 ML SYRINGE IVFLUSH ×4 (00:16→19:57)
[2023-11-01] MEDS: oxyCODONE HCl Immed Release 5 MG TABLET PO ×5 (02:15→20:58)
[2023-11-01] MEDS: vancomycin HCL 750 MG in 0.9 % Sodium Chloride 250 ML 265 MG IV ×2 (05:10→17:06)
[2023-11-01] MEDS: methylPREDNISolone Sod Succ 40 MG/ML VIAL IVPUSH ×2 (06:22→19:54)
[2023-11-01 07:02] LABS: Creatinine Clr Calc Pharmacy 55.2; Estimated Glomerular Filt Rate 52
[2023-11-01 07:55] LABS: Glucose, Whole Blood 305 mg/dL (60-115)
[2023-11-01] MEDS: Gabapentin 600 MG TABLET PO ×3 (07:56→19:57)
[2023-11-01] MEDS: dilTIAZem HCL CD 240 MG CAP.ER.DEG PO (07:56)
[2023-11-01] MEDS: Famotidine 20 MG TABLET PO (07:56)
[2023-11-01] MEDS: Apixaban 5 MG TABLET PO ×2 (07:57→20:13)
[2023-11-01] MEDS: Cyclobenzaprine HCl 10 MG TABLET PO ×3 (07:58→19:54)
[2023-11-01] MEDS: allopurinoL 300 MG TABLET 150 MG PO (07:59)
[2023-11-01] MEDS: Nicotine 14 MG PATCH.TD24 TRANSDERMA (08:06)
[2023-11-01] MEDS: Insulin Glargine,Hum.rec.anlog 100 UNIT/ML 10 ML VIAL 25 UNIT SUBCUT (08:07)
[2023-11-01] MEDS: Insulin Lispro 100 UNIT/ML 3 ML VIAL SUBCUT ×4 (08:09→21:03)
[2023-11-01] MEDS: Furosemide 40 MG TABLET PO ×2 (08:17→20:07)
[2023-11-01] MEDS: PARoxetine HCL 20 MG TABLET PO (08:20)
[2023-11-01] MEDS: Albuterol/Iprat 2.5/0.5MG 3 ML AMPUL.NEB INHALE ×4 (08:25→19:11)
[2023-11-01 11:40] LABS: Glucose, Whole Blood 419 mg/dL (60-115)
--- NOTE | 2023-11-01 12:25 | PC.NURSE ---
Patient's POC at lunch 419, msg sent to provider and telephone order for additional 4units of insulin received. Total of 14units of insulin administered with lunch
--- NOTE | 2023-11-01 13:00 | HO.PM.IMPN ---
Subjective Subjective Date of Service: 11/01/23 Interval History: Complaining of persistent shortness of breath and cough, no fevers, no chills, continued to smoke few puffs a day, recently discharged from [facility] couple weeks ago, no acute events overnight. Review of Systems All other system reviewed and negative. Physical Exam Vital Signs: Vital Signs: Last Vital Signs Temp 97.0 F 11/01/23 07:59 Pulse 102 H 11/01/23 12:30 Resp 18 11/01/23 12:30 BP 121/60 11/01/23 08:17 Pulse Ox 96 11/01/23 07:59 O2 Del Method Nasal Cannula 11/01/23 07:59 O2 Flow Rate 3 11/01/23 07:59 BMI result Body Mass Index 42.9 Const: Other: General awake alert x3, anxious, in no acute distress. Neck supple no JVD. CVS regular rate rhythm, tachy regular Respiratory lungs bilateral expiratory wheeze,no respiratory distress, no rales Gastrointestinal abdomen soft, non tender, bowel sounds audible . Extremities no edema. Neuro non focal Skin no rash Objective Data Active Medications Acetaminophen (Acetaminophen 325 Mg Tablet) 650 mg PO Q6H PRN PRN Reason: Pain, Mild (Pain Scale 1-3) Last Admin: 10/31/23 21:05 Dose: 650 mg Documented By: SEBASTIAN Albuterol/Ipratropium (Albuterol/Iprat 2.5/0.5mg 3 Ml Ampul.Neb) 3 ml INHALE RQ4H WHILE AWAKE [facility] Last Admin: 11/01/23 12:27 Dose: 3 ml Documented By: LAYTON Albuterol/Ipratropium (Albuterol/Iprat 2.5/0.5mg 3 Ml Ampul.Neb) 3 ml INHALE Q4H PRN PRN Reason: Wheezing Last Admin: 10/31/23 00:41 Dose: 3 ml Documented By: NORA Albuterol/Ipratropium (Albuterol/Iprat 2.5/0.5mg 3 Ml Ampul.Neb) 3 ml INHALE Q6H PRN PRN Reason: shortness of breath or wheezing Allopurinol (Allopurinol 300 Mg Tablet) 150 mg PO DAILY [facility] Last Admin: 11/01/23 07:59 Dose: 150 mg Documented By: JOE Apixaban (Apixaban 5 Mg Tablet) 5 mg PO BID [facility] Last Admin: 11/01/23 07:57 Dose: 5 mg Documented By: JOE Cyclobenzaprine HCl (Cyclobenzaprine Hcl 10 Mg Tablet) 10 mg PO TID [facility] Last Admin: 11/01/23 07:58 Dose: 10 mg Documented By: JOE Diltiazem HCl (Diltiazem Hcl Cd 240 Mg Cap.Er.Deg) 240 mg PO DAILY [facility]; Protocol Last Admin: 11/01/23 07:56 Dose: 240 mg Documented By: JOE Docusate Sodium (Docusate Sodium 100 Mg Capsule) 100 mg PO BID PRN PRN Reason: constipation Famotidine (Famotidine 20 Mg Tablet) 20 mg PO DAILY [facility] Last Admin: 11/01/23 07:56 Dose: 20 mg Documented By: JOE Furosemide (Furosemide 40 Mg Tablet) 40 mg PO BID [facility]; Protocol Last Admin: 11/01/23 08:17 Dose: 40 mg Documented By: JOE Gabapentin (Gabapentin 600 Mg Tablet) 600 mg PO TID [facility] Last Admin: 11/01/23 07:56 Dose: 600 mg Documented By: JOE Glucose (Glucose Gel 15 Gm Gel..Gram.) 15 gm PO Q15M PRN; Protocol PRN Reason: per Hypoglycemia Standing Ord. Guaifenesin (Guaifenesin 100 Mg/5 Ml Liquid) 5 ml PO Q6H PRN PRN Reason: Cough Last Admin: 10/31/23 10:19 Dose: 5 ml Documented By: TINO Ceftriaxone Sodium 1 gm/ (Sodium Chloride) 50 mls @ 100 mls/hr IV Q24H [facility] Last Infusion: 10/31/23 22:30 Dose: Infused Documented By: SARIKA Azithromycin 500 mg/ Sodium (Chloride) 250 mls @ 125 mls/hr IV Q24H [facility] Last Infusion: 11/01/23 00:00 Dose: Infused Documented By: ROSY Dextrose (D10) 250 mls @ 750 mls/hr IV Q15M PRN; Protocol PRN Reason: per Hypoglycemia Standing Ord. Vancomycin HCl 750 mg/ Sodium (Chloride) 265 mls @ 265 mls/hr IV Q12H [facility] Last Infusion: 11/01/23 06:13 Dose: Infused Documented By: ROSY Insulin Glargine (Insulin Glargine,Hum.Rec.Anlog 100 Unit/Ml 10 Ml Vial) 25 unit SUBCUT DAILY [facility] Last Admin: 11/01/23 08:07 Dose: 25 unit Documented By: JOE Comments: Insulin Human Lispro (Insulin Lispro 100 Unit/Ml 3 Ml Vial) 0 unit SUBCUT QIDACHS [facility]; Protocol Last Admin: 11/01/23 11:53 Dose: 14 unit Documented By: SHANE Comments: per MD Melatonin (Melatonin 3 Mg Tablet) 6 mg PO BEDTIME PRN PRN Reason: Insomnia Methylprednisolone Sodium Succinate (Methylprednisolone Sod Succ 40 Mg/Ml Vial) 40 mg IVPUSH Q12H [facility] Last Admin: 11/01/23 06:22 Dose: 40 mg Documented By: ROSY Nicotine (Nicotine 14 Mg Patch.Td24) 14 mg TRANSDERMA DAILY [facility] Last Admin: 11/01/23 08:06 Dose: 14 mg Documented By: JOE Ondansetron HCl (Ondansetron Hcl 4 Mg/2 Ml Vial) 4 mg IVPUSH Q8H PRN PRN Reason: Nausea and Vomiting Oxycodone HCl (Oxycodone Hcl Immed Release 5 Mg Tablet) 5 mg PO Q4H PRN PRN Reason: Pain, Moderate(Pain Scale 4-6) Last Admin: 11/01/23 11:57 Dose: 5 mg Documented By: SHANE Paroxetine HCl (Paroxetine Hcl 20 Mg Tablet) 20 mg PO DAILY@0900 [facility] Last Admin: 11/01/23 08:20 Dose: 20 mg Documented By: JOE Pharmacy Consult (Consult Rx Vancomycin Dosing) 1 each MISCELLANE DAILY PRN PRN Reason: Consult order Sodium Chloride (0.9 % Sodium Chloride Flush 3 Ml Syringe) 3 ml IVFLUSH QSHIFT [facility] Last Admin: 11/01/23 08:11 Dose: 3 ml Documented By: JOE Labs 10/31/23 04:03 11/01/23 05:45 Labs: Laboratory Results - last 24 hr 10/31/23 10/31/23 11/01/23 18:33 20:29 05:45 Hold Purple Top SEE NOTE Estim Creat Clear Calc 55.2 Estimated GFR 52 POC Glucose 277 H 355 H* 11/01/23 11/01/23 07:27 11:24 Hold Purple Top Estim Creat Clear Calc Estimated GFR POC Glucose 305 H 419 H* Microbiology Microbiology Results: Microbiology 10/30/23 19:11 Blood Culture - Preliminary Blood - Venous Enterococcus/Streptococcus sp 10/30/23 19:59 Blood Culture - Preliminary Blood - Venous No growth after 24 hours. Assessment and Plan (1) COPD exacerbation: Status: Acute Plan 78-year-old female with pertinent history of paroxysmal atrial fibrillation on Eliquis, COPD not on home oxygen, gout, congestive heart failure unspecified EF, gout, insulin-dependent diabetes mellitus who was sent to the emergency department for evaluation of altered mentation. #. Acute hypoxemic respiratory failure secondary to community-acquired pneumonia leading to acute exacerbation of COPD: Persistent shortness of breath and cough denies fever, no chills Chest x-ray showed bibasilar interstitial infiltrate or atelectasis Continue IV steroids 40 mg q.12 hours, scheduled and p.r.n. DuoNebs. Wean oxygen as tolerated, not on home O2. Continue IV azithromycin and IV ceftriaxone started on 10/30 Will resume Breo 1 inhalation daily, add guaifenesin [place] b.i.d. Outpatient follow-up with Dr. Diamond in 2 weeks # bacteremia 1/2 blood culture positive for Enterococcus/Streptococcus species continue with IV vancomycin and follow final blood culture report, UA negative, ID consult #. Sepsis due to community-acquired pneumonia: Mild tachycardia due to AFib/normal lactic acid all other features of sepsis resolved #. Acute metabolic encephalopathy in the setting of hypoglycemia: Resolved , will monitor blood sugars and oxygen. #. Insulin-dependent diabetes mellitus: Reduce home basal insulin in the setting of above. Initiating Accu-Cheks with sliding scale insulin #. Paroxysmal atrial fibrillation: Continue Eliquis and Cardizem , mild tachycardia will follow #. Gout: No acute flare, continue allopurinol #. Congestive heart failure, unspecified EF: No decompensation during admission. Continue home Lasix. # chronic pain continue gabapentin # morbid obesity due to excess calories recommend low calorie diet. DVT prophylaxis: Eliquis Full code. Patient will require continued inpatient hospitalization for supplemental oxygen, IV steroids, IV antibiotics (as above), which is not possible in a lesser acute setting. Quality Stroke Does the patient have a stroke diagnosis?: No VTE Prior VTE?: No VTE Risk Level:: Medical - moderate - high VTE Device Contraindication: Treatment Not Indicated VTE Drug Contraindication: N/A - Med Ordered
[2023-11-01] MEDS: guaiFENesin LA 600 MG TAB.ER.12H PO ×2 (14:52→19:54)
[2023-11-01] MEDS: Acetaminophen 325 MG TABLET 650 MG PO (14:54)
[2023-11-01 16:21] LABS: Glucose, Whole Blood 266 mg/dL (60-115)
[2023-11-01] MEDS: guaiFENesin 100 MG/5 ML LIQUID PO (16:31)
[2023-11-01] MEDS: cefTRIAXone sodium 1 GM in 0.9 % Sodium Chloride 50 ML IV (20:13)
[2023-11-01 20:40] LABS: Glucose, Whole Blood 337 mg/dL (60-115)
[2023-11-01] MEDS: Azithromycin 500 MG in 0.9 % Sodium Chloride 250 ML 125 MG IV (21:00)
[2023-11-02] VITALS (10 sets, daily range): BP systolic 110–131; BP diastolic 61–91; PULSE 75–124; RESP 18; TEMP 36–36.1; O2SAT 94–97
[2023-11-02] MEDS: oxyCODONE HCl Immed Release 5 MG TABLET PO ×5 (04:05→21:15)
[2023-11-02] MEDS: vancomycin HCL 750 MG in 0.9 % Sodium Chloride 250 ML 265 MG IV (04:14)
[2023-11-02] MEDS: guaiFENesin 100 MG/5 ML LIQUID PO (04:17)
[2023-11-02] MEDS: methylPREDNISolone Sod Succ 40 MG/ML VIAL IVPUSH ×2 (06:04→18:50)
[2023-11-02 07:22] LABS: Creatinine Clr Calc Pharmacy 54.7; Estimated Glomerular Filt Rate 52
[2023-11-02 07:41] LABS: Glucose, Whole Blood 398 mg/dL (60-115)
[2023-11-02] MEDS: Albuterol/Iprat 2.5/0.5MG 3 ML AMPUL.NEB INHALE ×4 (07:54→18:36)
[2023-11-02] MEDS: Insulin Glargine,Hum.rec.anlog 100 UNIT/ML 10 ML VIAL 25 UNIT SUBCUT (08:02)
[2023-11-02] MEDS: Nicotine 14 MG PATCH.TD24 TRANSDERMA (08:03)
[2023-11-02] MEDS: Insulin Lispro 100 UNIT/ML 3 ML VIAL SUBCUT ×4 (08:03→21:16)
[2023-11-02] MEDS: guaiFENesin LA 600 MG TAB.ER.12H PO (08:04)
[2023-11-02] MEDS: Furosemide 40 MG TABLET PO ×2 (08:04→21:03)
[2023-11-02] MEDS: Gabapentin 600 MG TABLET PO ×3 (08:04→21:04)
[2023-11-02] MEDS: Cyclobenzaprine HCl 10 MG TABLET PO ×3 (08:04→20:59)
[2023-11-02] MEDS: dilTIAZem HCL CD 240 MG CAP.ER.DEG PO (08:05)
[2023-11-02] MEDS: PARoxetine HCL 20 MG TABLET PO (08:05)
[2023-11-02] MEDS: Famotidine 20 MG TABLET PO (08:05)
[2023-11-02] MEDS: allopurinoL 300 MG TABLET 150 MG PO (08:05)
[2023-11-02] MEDS: Apixaban 5 MG TABLET PO ×2 (08:06→21:00)
[2023-11-02] MEDS: 0.9 % Sodium Chloride Flush 3 ML SYRINGE IVFLUSH ×2 (08:11→17:18)
--- NOTE | 2023-11-02 10:16 | MHC.CM.PN ---
Per MD rounds patient is not medically cleared for discharge. DP home with resumption of [facility].She will arrange for a ride home.
[2023-11-02 11:14] LABS: Glucose, Whole Blood 379 mg/dL (60-115)
[2023-11-02] MEDS: Fluticasone/Vilanterol 100/25 BLST.W.DEV 1 PUFF INHALE (11:32)
--- NOTE | 2023-11-02 12:14 | HO.PM.IMPN ---
Subjective Subjective Date of Service: 11/02/23 Interval History: Complaining of persistent shortness of breath, chest congestion and cough, unable to bring up phlegm, denies fever, no chills no headache, no dizziness tolerating diet, no nausea, no vomiting, no abdominal pain. Noted to have elevated blood sugars likely due to IV steroids Review of Systems All other system reviewed and negative Physical Exam Vital Signs: Vital Signs: Last Vital Signs Temp 96.9 F 11/02/23 07:08 Pulse 89 11/02/23 11:34 Resp 18 11/02/23 11:34 BP 131/91 H 11/02/23 08:05 Pulse Ox 94 11/02/23 07:08 O2 Del Method Nasal Cannula 11/02/23 07:08 O2 Flow Rate 2 11/02/23 07:08 BMI result Body Mass Index 42.9 Const: Other: General awake alert x3, anxious, in no acute distress, noted to have congested cough. Neck supple no JVD. CVS regular rate rhythm, tachy regular Respiratory lungs bilateral expiratory wheeze, prolonged expiration, no respiratory distress, no rales Gastrointestinal abdomen soft, non tender, bowel sounds audible . Extremities no edema. Neuro non focal Psych appropriate affect Objective Data Active Medications Acetaminophen (Acetaminophen 325 Mg Tablet) 650 mg PO Q6H PRN PRN Reason: Pain, Mild (Pain Scale 1-3) Last Admin: 11/01/23 14:54 Dose: 650 mg Documented By: JOE Albuterol/Ipratropium (Albuterol/Iprat 2.5/0.5mg 3 Ml Ampul.Neb) 3 ml INHALE RQ4H WHILE AWAKE JESS[facility] Last Admin: 11/02/23 11:32 Dose: 3 ml Documented By: ADEOLA Albuterol/Ipratropium (Albuterol/Iprat 2.5/0.5mg 3 Ml Ampul.Neb) 3 ml INHALE Q4H PRN PRN Reason: Wheezing Last Admin: 10/31/23 00:41 Dose: 3 ml Documented By: NORA Albuterol/Ipratropium (Albuterol/Iprat 2.5/0.5mg 3 Ml Ampul.Neb) 3 ml INHALE Q6H PRN PRN Reason: shortness of breath or wheezing Allopurinol (Allopurinol 300 Mg Tablet) 150 mg PO DAILY [facility] Last Admin: 11/02/23 08:05 Dose: 150 mg Documented By: JOE Apixaban (Apixaban 5 Mg Tablet) 5 mg PO BID [facility] Last Admin: 11/02/23 08:06 Dose: 5 mg Documented By: JOE Cyclobenzaprine HCl (Cyclobenzaprine Hcl 10 Mg Tablet) 10 mg PO TID [facility] Last Admin: 11/02/23 08:04 Dose: 10 mg Documented By: JOE Diltiazem HCl (Diltiazem Hcl Cd 240 Mg Cap.Er.Deg) 240 mg PO DAILY [facility]; Protocol Last Admin: 11/02/23 08:05 Dose: 240 mg Documented By: JOE Docusate Sodium (Docusate Sodium 100 Mg Capsule) 100 mg PO BID PRN PRN Reason: constipation Famotidine (Famotidine 20 Mg Tablet) 20 mg PO DAILY [facility] Last Admin: 11/02/23 08:05 Dose: 20 mg Documented By: JOE Fluticasone/Vilanterol (Fluticasone/Vilanterol 100/25 Blst.W.Dev) 1 puff INHALE RDAILY [facility] Last Admin: 11/02/23 11:32 Dose: 1 puff Documented By: ADEOLA Furosemide (Furosemide 40 Mg Tablet) 40 mg PO BID [facility]; Protocol Last Admin: 11/02/23 08:04 Dose: 40 mg Documented By: JOE Gabapentin (Gabapentin 600 Mg Tablet) 600 mg PO TID [facility] Last Admin: 11/02/23 08:04 Dose: 600 mg Documented By: JOE Glucose (Glucose Gel 15 Gm Gel..Gram.) 15 gm PO Q15M PRN; Protocol PRN Reason: per Hypoglycemia Standing Ord. Guaifenesin (Guaifenesin La 600 Mg Tab.Er.12h) 1,200 mg PO BID [facility] Guaifenesin (Guaifenesin 200 Mg/10 Ml 10 Ml Liquid) 10 ml PO Q6H PRN PRN Reason: Cough Ceftriaxone Sodium 1 gm/ (Sodium Chloride) 50 mls @ 100 mls/hr IV Q24H [facility] Last Infusion: 11/01/23 21:17 Dose: Infused Documented By: ALEXANDRIA Azithromycin 500 mg/ Sodium (Chloride) 250 mls @ 125 mls/hr IV Q24H [facility] Last Infusion: 11/02/23 00:36 Dose: Infused Documented By: ALEXANDRIA Dextrose (D10) 250 mls @ 750 mls/hr IV Q15M PRN; Protocol PRN Reason: per Hypoglycemia Standing Ord. Vancomycin HCl 750 mg/ Sodium (Chloride) 265 mls @ 265 mls/hr IV Q12H [facility] Last Infusion: 11/02/23 05:23 Dose: Infused Documented By: ALEXANDRIA Insulin Glargine (Insulin Glargine,Hum.Rec.Anlog 100 Unit/Ml 10 Ml Vial) 35 unit SUBCUT DAILY [facility] Insulin Human Lispro (Insulin Lispro 100 Unit/Ml 3 Ml Vial) 0 unit SUBCUT QIDACHS [facility]; Protocol Last Admin: 11/02/23 11:31 Dose: 14 unit Documented By: JOE Melatonin (Melatonin 3 Mg Tablet) 6 mg PO BEDTIME PRN PRN Reason: Insomnia Methylprednisolone Sodium Succinate (Methylprednisolone Sod Succ 40 Mg/Ml Vial) 40 mg IVPUSH Q12H [facility] Last Admin: 11/02/23 06:04 Dose: 40 mg Documented By: ALEXANDRIA Nicotine (Nicotine 14 Mg Patch.Td24) 14 mg TRANSDERMA DAILY [facility] Last Admin: 11/02/23 08:03 Dose: 14 mg Documented By: JOE Ondansetron HCl (Ondansetron Hcl 4 Mg/2 Ml Vial) 4 mg IVPUSH Q8H PRN PRN Reason: Nausea and Vomiting Oxycodone HCl (Oxycodone Hcl Immed Release 5 Mg Tablet) 5 mg PO Q4H PRN PRN Reason: Pain, Moderate(Pain Scale 4-6) Last Admin: 11/02/23 08:09 Dose: 5 mg Documented By: JOE Paroxetine HCl (Paroxetine Hcl 20 Mg Tablet) 20 mg PO DAILY@0900 [facility] Last Admin: 11/02/23 08:05 Dose: 20 mg Documented By: JOE Pharmacy Consult (Consult Rx Vancomycin Dosing) 1 each MISCELLANE DAILY PRN PRN Reason: Consult order Sodium Chloride (0.9 % Sodium Chloride Flush 3 Ml Syringe) 3 ml IVFLUSH QSHIFT [facility] Last Admin: 11/02/23 08:11 Dose: 3 ml Documented By: JOE Labs 10/31/23 04:03 11/02/23 05:33 Labs: Laboratory Results - last 24 hr 11/01/23 11/01/23 11/02/23 16:02 20:18 05:33 Estim Creat Clear Calc 54.7 Estimated GFR 52 POC Glucose 266 H 337 H 11/02/23 11/02/23 07:35 11:08 Estim Creat Clear Calc Estimated GFR POC Glucose 398 H* 379 H* Microbiology Microbiology Results: Microbiology 10/30/23 19:11 Blood Culture - Final Blood - Venous Enterococcus faecalis 10/30/23 19:59 Blood Culture - Preliminary Blood - Venous No growth after 48 hours. Assessment and Plan (1) COPD exacerbation: Status: Acute Plan 78-year-old female with pertinent history of paroxysmal atrial fibrillation on Eliquis, COPD not on home oxygen, gout, congestive heart failure unspecified EF, gout, insulin-dependent diabetes mellitus who was sent to the emergency department for evaluation of altered mentation. #. Acute hypoxemic respiratory failure secondary to community-acquired pneumonia leading to acute exacerbation of COPD: Persistent shortness of breath and congested cough,no fever, no chills Chest x-ray showed bibasilar interstitial infiltrate or atelectasis Continue IV steroids 40 mg q.12 hours, scheduled and p.r.n. DuoNebs. Wean oxygen as tolerated, not on home O2. Continue IV azithromycin and IV vanco started on 10/30 , will DC IV ceftriaxone . Breo 1 inhalation daily, guaifenesin LA 1200 b.i.d. Outpatient follow-up with Dr. Diamond in 2 weeks # bacteremia 1/2 blood culture positive for Enterococcus species question source of infection UA unremarkable, no catheters, normal LFTs, no wounds, continue with IV vancomycin and follow with ID , consider CT abdomen and pelvis. #. Sepsis due to community-acquired pneumonia/bacteremia: Mild tachycardia due to AFib/normal lactic acid, all other features of sepsis resolved. #. Acute metabolic encephalopathy in the setting of hypoglycemia: Resolved , will monitor blood sugars and oxygen. #. Insulin-dependent diabetes mellitus: Hypoglycemia resolved noted to have elevated blood sugars likely due to steroids, will increase dose of Lantus from 25 units to 35 units, continue Accu-Cheks with sliding scale insulin Will lower dosage once steroids being weaned. #. Paroxysmal atrial fibrillation: Continue Eliquis and Cardizem , mild tachycardia will follow #. Gout: No acute flare, continue allopurinol #. Congestive heart failure, unspecified EF: No decompensation during admission. Continue home Lasix. # chronic pain continue gabapentin # morbid obesity due to excess calories recommend low calorie diet. DVT prophylaxis: Eliquis Full code. Patient will require continued inpatient hospitalization for supplemental oxygen, IV steroids, IV antibiotics (as above), which is not possible in a lesser acute setting. Quality Stroke Does the patient have a stroke diagnosis?: No VTE Prior VTE?: No VTE Risk Level:: Medical - moderate - high VTE Device Contraindication: Treatment Not Indicated VTE Drug Contraindication: N/A - Med Ordered
[2023-11-02] MEDS: guaiFENesin 200 MG/10 ML 10 ML LIQUID PO (13:30)
[2023-11-02] MEDS: Insulin Glargine,Hum.rec.anlog 100 UNIT/ML 10 ML VIAL 10 UNIT SUBCUT (13:30)
[2023-11-02] MEDS: Piperacillin Sodium/Tazobactam 3.375 GM in 0.9 % Sodium Chloride 50 ML IV ×2 (14:36→21:05)
[2023-11-02 15:36] LABS: Vancomycin Random 18.8 mcg/mL (15-20)
[2023-11-02] MEDS: iohexoL 350 MG/ML 75 ML INFUS..BTL 85 ML IV (15:41)
[2023-11-02 16:24] LABS: Glucose, Whole Blood 230 mg/dL (60-115)
[2023-11-02] MEDS: Acetaminophen 325 MG TABLET 650 MG PO (17:17)
[2023-11-02 19:47] LABS: Glucose, Whole Blood 272 mg/dL (60-115)
[2023-11-02] MEDS: guaiFENesin LA 600 MG TAB.ER.12H 1200 MG PO (21:04)
[2023-11-02] MEDS: Azithromycin 500 MG in 0.9 % Sodium Chloride 250 ML 125 MG IV (22:07)
--- NOTE | 2023-11-02 23:18 | P.CNID_ITS ---
History of Present Illness Data of Consult Service Date: 11/02/23 Requesting physician: Toribio Cardenas Primary Care Provider: Ti Thompson PA-C HPI Reason for consult: encephalopathy,enterococcus faecalis bacteremia 10/29 She presents with confusion and fatigue and hypoxia. She had blood cultures drawn and cultures 10/29 enterococcus faecalis sensitive to ampicillin. She has urine culture unremarkable. She has some lumbar discomfort also. Review of Systems 2 Review of Systems: Yes all other systems are reviewed and are negative PMFSH Past Medical History Medical History CHF (congestive heart failure) A-fib Diabetes Cough Hypoventilation syndrome Skin cancer of trunk Skin cancer of face COPD (chronic obstructive pulmonary disease) Failed back syndrome Family History Family History Father No problems noted. Mother No problems noted. Daughter Opiate dependence Substance use disorder Family/Other FH: mental illness Mental health disorder Family history: reviewed and not pertinent Surgical History Surgical History History of knee surgery History of shoulder surgery History of ankle surgery History of hip surgery Social History Social History Household Members: None Household Members Other:: daughter Housing: Apartment Do you presently have visiting nurse or other home services: Yes Unable to assess alcohol history related to: Unknown Alcohol intake: never Patient Tobacco Use Status: Former Tobacco user Quit Date: more than 10 years ago Tobacco use type: Cigarette e-Cigarette/Vaping Use: Never Used service: No Current occupational status: retired and disabled Cognitive needs: Yes Hearing needs: No Vision needs: Yes Meds Allergies Allergy/AdvReac Type Severity Reaction Status Date / Time aspirin [Aspirin] Allergy Mild NAUSEA Verified 10/30/23 14:44 codeine [Codeine] Allergy Mild VOMITING Verified 10/30/23 14:44 Active Medications: Current Medications Acetaminophen (Acetaminophen 325 Mg Tablet) 650 mg PO Q6H PRN PRN Reason: Pain, Mild (Pain Scale 1-3) Last Admin: 11/02/23 17:17 Dose: 650 mg Albuterol/Ipratropium (Albuterol/Iprat 2.5/0.5mg 3 Ml Ampul.Neb) 3 ml INHALE RQ4H WHILE AWAKE [facility] Last Admin: 11/02/23 18:36 Dose: 3 ml Albuterol/Ipratropium (Albuterol/Iprat 2.5/0.5mg 3 Ml Ampul.Neb) 3 ml INHALE Q4H PRN PRN Reason: Wheezing Last Admin: 10/31/23 00:41 Dose: 3 ml Albuterol/Ipratropium (Albuterol/Iprat 2.5/0.5mg 3 Ml Ampul.Neb) 3 ml INHALE Q6H PRN PRN Reason: shortness of breath or wheezing Allopurinol (Allopurinol 300 Mg Tablet) 150 mg PO DAILY [facility] Last Admin: 11/02/23 08:05 Dose: 150 mg Apixaban (Apixaban 5 Mg Tablet) 5 mg PO BID [facility] Last Admin: 11/02/23 21:00 Dose: 5 mg Cyclobenzaprine HCl (Cyclobenzaprine Hcl 10 Mg Tablet) 10 mg PO TID [facility] Last Admin: 11/02/23 20:59 Dose: 10 mg Diltiazem HCl (Diltiazem Hcl Cd 240 Mg Cap.Er.Deg) 240 mg PO DAILY [facility]; Protocol Last Admin: 11/02/23 08:05 Dose: 240 mg Docusate Sodium (Docusate Sodium 100 Mg Capsule) 100 mg PO BID PRN PRN Reason: constipation Famotidine (Famotidine 20 Mg Tablet) 20 mg PO DAILY [facility] Last Admin: 11/02/23 08:05 Dose: 20 mg Fluticasone/Vilanterol (Fluticasone/Vilanterol 100/25 Blst.W.Dev) 1 puff INHALE RDAILY [facility] Last Admin: 11/02/23 11:32 Dose: 1 puff Furosemide (Furosemide 40 Mg Tablet) 40 mg PO BID [facility]; Protocol Last Admin: 11/02/23 21:03 Dose: 40 mg Gabapentin (Gabapentin 600 Mg Tablet) 600 mg PO TID [facility] Last Admin: 11/02/23 21:04 Dose: 600 mg Glucose (Glucose Gel 15 Gm Gel..Gram.) 15 gm PO Q15M PRN; Protocol PRN Reason: per Hypoglycemia Standing Ord. Guaifenesin (Guaifenesin La 600 Mg Tab.Er.12h) 1,200 mg PO BID [facility] Last Admin: 11/02/23 21:04 Dose: 1,200 mg Guaifenesin (Guaifenesin 200 Mg/10 Ml 10 Ml Liquid) 10 ml PO Q6H PRN PRN Reason: Cough Last Admin: 11/02/23 13:30 Dose: 10 ml Azithromycin 500 mg/ Sodium (Chloride) 250 mls @ 125 mls/hr IV Q24H [facility] Last Admin: 11/02/23 22:07 Dose: 125 mls/hr Dextrose (D10) 250 mls @ 750 mls/hr IV Q15M PRN; Protocol PRN Reason: per Hypoglycemia Standing Ord. Piperacillin Sod/Tazobactam (Sod 3.375 gm/ Sodium Chloride) 50 mls @ 100 mls/hr IV Q6H [facility] Last Infusion: 11/02/23 21:44 Dose: Infused Insulin Glargine (Insulin Glargine,Hum.Rec.Anlog 100 Unit/Ml 10 Ml Vial) 35 unit SUBCUT DAILY [facility] Insulin Human Lispro (Insulin Lispro 100 Unit/Ml 3 Ml Vial) 0 unit SUBCUT QIDACHS [facility]; Protocol Last Admin: 11/02/23 21:16 Dose: 10 unit Melatonin (Melatonin 3 Mg Tablet) 6 mg PO BEDTIME PRN PRN Reason: Insomnia Methylprednisolone Sodium Succinate (Methylprednisolone Sod Succ 40 Mg/Ml Vial) 40 mg IVPUSH Q12H [facility] Last Admin: 11/02/23 18:50 Dose: 40 mg Nicotine (Nicotine 14 Mg Patch.Td24) 14 mg TRANSDERMA DAILY [facility] Last Admin: 11/02/23 08:03 Dose: 14 mg Ondansetron HCl (Ondansetron Hcl 4 Mg/2 Ml Vial) 4 mg IVPUSH Q8H PRN PRN Reason: Nausea and Vomiting Oxycodone HCl (Oxycodone Hcl Immed Release 5 Mg Tablet) 5 mg PO Q4H PRN PRN Reason: Pain, Moderate(Pain Scale 4-6) Last Admin: 11/02/23 21:15 Dose: 5 mg Paroxetine HCl (Paroxetine Hcl 20 Mg Tablet) 20 mg PO DAILY@0900 [facility] Last Admin: 11/02/23 08:05 Dose: 20 mg Sodium Chloride (0.9 % Sodium Chloride Flush 3 Ml Syringe) 3 ml IVFLUSH QSHIFT [facility] Last Admin: 11/02/23 17:18 Dose: 3 ml Home Medications ?Medication ?Instructions ?Recorded ?Confirmed ?Last Taken ?Type nicotine 14 mg/24 hr daily 1 patch topical DAILY 10/30/23 10/30/23 Unknown History transdermal patch Physical Exam 2 Vital Signs: Vital Signs: Last Vital Signs Temp 96.8 F 11/02/23 15:52 Pulse 106 H 11/02/23 21:06 Resp 18 11/02/23 18:36 BP 131/83 11/02/23 21:06 Pulse Ox 96 11/02/23 15:52 O2 Del Method Room Air 11/02/23 15:52 O2 Flow Rate 2 11/02/23 07:08 BMI result Body Mass Index 42.9 Const: General: cooperative HEENT: Head: Yes normal to inspection Face and sinus: Yes normal facial exam Mouth: Normal oral and palatal mucosa present Teeth and gingiva: d entition normal Eyes: General: appearance normal, both eyes and all related structures P upils: Equal, round and reactive pupils present Resp: Effort & Inspection: normal respiratory effort Cardio: Rate: regular rate Rhythm: regular rhythm GI: Palpation (GI): Soft to palpation and nontender : General: Yes no CVA tenderness Back/Spine/Pelvis: Back: no CVA tenderness Skin: General skin exam: no rashes or lesions noted Neuro: General: moves all extremities Cranial nerves: Yes Equal, round and reactive pupils present Extrem: General: Yes normal to inspection Psych: Appearance: grossly normal Results Labs 10/31/23 04:03 11/02/23 05:33 Labs: BMP 11/02/23 05:33 Creatinine 1.03 Microbiology Microbiology Results: Microbiology 10/30/23 19:11 Blood - Venous Blood Culture - Final Enterococcus faecalis 10/30/23 19:59 Blood - Venous Blood Culture - Preliminary No growth after 48 hours. Assessment and Plan (1) COPD exacerbation: Status: Acute (2) Chronic back pain: Qualifiers: Back pain laterality: bilateral Back pain location: low back pain S ciatica presence: without sciatica Qualified Code(s): M54.50 - Low back pain, unspecified; G89.29 - Other chronic pain Status: Acute (3) Chronic lung disease: Status: Acute (4) Pneumonia: Qualifiers: Laterality: right Lung location: lower lobe of lung Pneumonia type: d ue to unspecified organism Qualified Code(s): J18.9 - Pneumonia, unspecified organism Status: Acute there is possible pneumonia source of enterococcal bacteremia but would be unusual. also possible abdominal source endocarditis possible Plan Check abdomen and pelvis CT check abdominal source. Continue Zosyn at this time Likely po Augmentin if no endocarditis or abdominal abscess for 14 days. Echo. Stop Vancomycin and stop Ceftriaxone Continue azithromycin possible pneumonia help
[2023-11-03] VITALS (14 sets, daily range): BP systolic 117–144; BP diastolic 62–91; PULSE 72–163; RESP 18–24; TEMP 36.3–36.9; O2SAT 92–98
--- NOTE | 2023-11-03 | ECG_ITS ---
Test Reason : tachy Blood Pressure : / mmHG Vent. Rate : 157 BPM Atrial Rate : 000 BPM P-R Int : 000 ms QRS Dur : 088 ms QT Int : 254 ms P-R-T Axes : 000 073 -21 degrees QTc Int : 410 ms Atrial fibrillation with rapid ventricular response Abnormal QRS-T angle, consider primary T wave abnormality Abnormal ECG When compared with ECG of 30-OCT-2023 19:14, Atrial fibrillation has replaced Sinus rhythm Vent. rate has increased BY 82 BPM Questionable change in QRS axis T wave inversion now evident in Inferior leads Referred By: Felicitas Pulido Electronically Signed By:Naldo Moncada
[2023-11-03] MEDS: 0.9 % Sodium Chloride Flush 3 ML SYRINGE IVFLUSH ×3 (00:05→17:18)
[2023-11-03] MEDS: Piperacillin Sodium/Tazobactam 3.375 GM in 0.9 % Sodium Chloride 50 ML IV ×5 (01:05→22:49)
[2023-11-03] MEDS: oxyCODONE HCl Immed Release 5 MG TABLET PO ×5 (01:22→20:50)
[2023-11-03] MEDS: methylPREDNISolone Sod Succ 40 MG/ML VIAL IVPUSH ×2 (06:03→18:36)
[2023-11-03 06:52] LABS: Estimated Glomerular Filt Rate 50
[2023-11-03 07:05] LABS: Glucose, Whole Blood 335 mg/dL (60-115)
[2023-11-03] MEDS: Nicotine 14 MG PATCH.TD24 TRANSDERMA (07:25)
[2023-11-03] MEDS: Insulin Glargine,Hum.rec.anlog 100 UNIT/ML 10 ML VIAL 35 UNIT SUBCUT (07:25)
[2023-11-03] MEDS: Insulin Lispro 100 UNIT/ML 3 ML VIAL SUBCUT ×3 (07:26→22:59)
[2023-11-03] MEDS: Cyclobenzaprine HCl 10 MG TABLET PO ×3 (07:26→20:49)
[2023-11-03] MEDS: guaiFENesin LA 600 MG TAB.ER.12H 1200 MG PO ×2 (07:26→20:49)
[2023-11-03] MEDS: allopurinoL 300 MG TABLET 150 MG PO (07:27)
[2023-11-03] MEDS: Gabapentin 600 MG TABLET PO ×3 (07:27→20:50)
[2023-11-03] MEDS: dilTIAZem HCL CD 240 MG CAP.ER.DEG PO (07:27)
[2023-11-03] MEDS: Famotidine 20 MG TABLET PO (07:27)
[2023-11-03] MEDS: Apixaban 5 MG TABLET PO ×2 (07:27→20:50)
[2023-11-03] MEDS: Furosemide 40 MG TABLET PO ×2 (07:29→20:51)
[2023-11-03] MEDS: PARoxetine HCL 20 MG TABLET PO (07:29)
[2023-11-03] MEDS: Albuterol/Iprat 2.5/0.5MG 3 ML AMPUL.NEB INHALE ×3 (08:24→14:55)
[2023-11-03] MEDS: Fluticasone/Vilanterol 100/25 BLST.W.DEV 1 PUFF INHALE (08:25)
[2023-11-03] MEDS: Insulin Glargine,Hum.rec.anlog 100 UNIT/ML 10 ML VIAL SUBCUT (09:27)
[2023-11-03] MEDS: guaiFENesin 200 MG/10 ML 10 ML LIQUID PO (09:31)
[2023-11-03] MEDS: Acetaminophen 325 MG TABLET 650 MG PO (09:31)
[2023-11-03] MEDS: Sennosides/Docusate Sodium TABLET 2 TAB PO ×2 (10:41→20:51)
[2023-11-03] MEDS: polyethylene glycoL 3350 17 GM POWD.PACK PO (10:41)
[2023-11-03] MEDS: Lidocaine 4 % Patch ADH..PATCH 1 PATCH TRANSDERMA (10:42)
[2023-11-03 11:08] LABS: Glucose, Whole Blood 304 mg/dL (60-115)
--- NOTE | 2023-11-03 13:26 | P.PNIM_ITS ---
Subjective Subjective Date of Service: 11/03/23 Interval History: c/o dyspnea but states this is her baseline c/o chronic back pain no abd pain Review of Systems Review of Systems: Yes all other systems are reviewed and are negative Physical Exam 2 Vital Signs: Vital Signs: Last Vital Signs Temp 98.1 F 11/03/23 07:01 Pulse 85 11/03/23 08:28 Resp 20 11/03/23 08:28 BP 132/72 11/03/23 07:29 Pulse Ox 95 11/03/23 07:01 O2 Del Method Nasal Cannula 11/03/23 07:01 O2 Flow Rate 3 11/03/23 00:00 BMI result Body Mass Index 42.9 Gen: in no acute distress HEENT: sclera anicteric, moist mucus membranes Neck: supple Lungs: diminished, extensive expiratory wheezing, prolonged expiratory phase Heart: regular rate and rhythm, no murmurs Abd: soft, non-tender, non-distended, obese Ext: no edema Skin: warm/well-perfused Neuro: alert and oriented x3, no focal findings Psych: appropriate affect Objective Data Active Medications Acetaminophen (Acetaminophen 325 Mg Tablet) 650 mg PO Q6H PRN PRN Reason: Pain, Mild (Pain Scale 1-3) Last Admin: 11/03/23 09:31 Dose: 650 mg Documented By: FRANCIS Albuterol/Ipratropium (Albuterol/Iprat 2.5/0.5mg 3 Ml Ampul.Neb) 3 ml INHALE RQ4H WHILE AWAKE [facility] Last Admin: 11/03/23 12:15 Dose: 3 ml Documented By: NEYDA Albuterol/Ipratropium (Albuterol/Iprat 2.5/0.5mg 3 Ml Ampul.Neb) 3 ml INHALE Q4H PRN PRN Reason: Wheezing Last Admin: 10/31/23 00:41 Dose: 3 ml Documented By: NORA Albuterol/Ipratropium (Albuterol/Iprat 2.5/0.5mg 3 Ml Ampul.Neb) 3 ml INHALE Q6H PRN PRN Reason: shortness of breath or wheezing Allopurinol (Allopurinol 300 Mg Tablet) 150 mg PO DAILY [facility] Last Admin: 11/03/23 07:27 Dose: 150 mg Documented By: FRANCIS Apixaban (Apixaban 5 Mg Tablet) 5 mg PO BID [facility] Last Admin: 11/03/23 07:27 Dose: 5 mg Documented By: FRANCIS Cyclobenzaprine HCl (Cyclobenzaprine Hcl 10 Mg Tablet) 10 mg PO TID [facility] Last Admin: 11/03/23 07:26 Dose: 10 mg Documented By: FRANCIS Diltiazem HCl (Diltiazem Hcl Cd 240 Mg Cap.Er.Deg) 240 mg PO DAILY [facility]; Protocol Last Admin: 11/03/23 07:27 Dose: 240 mg Documented By: FRANCIS Docusate Sodium (Docusate Sodium 100 Mg Capsule) 100 mg PO BID PRN PRN Reason: constipation Famotidine (Famotidine 20 Mg Tablet) 20 mg PO DAILY [facility] Last Admin: 11/03/23 07:27 Dose: 20 mg Documented By: FRANCIS Fluticasone/Vilanterol (Fluticasone/Vilanterol 100/25 Blst.W.Dev) 1 puff INHALE RDAILY [facility] Last Admin: 11/03/23 08:25 Dose: 1 puff Documented By: SORAYA Furosemide (Furosemide 40 Mg Tablet) 40 mg PO BID [facility]; Protocol Last Admin: 11/03/23 07:29 Dose: 40 mg Documented By: FRANCIS Gabapentin (Gabapentin 600 Mg Tablet) 600 mg PO TID [facility] Last Admin: 11/03/23 07:27 Dose: 600 mg Documented By: FRANCIS Glucose (Glucose Gel 15 Gm Gel..Gram.) 15 gm PO Q15M PRN; Protocol PRN Reason: per Hypoglycemia Standing Ord. Guaifenesin (Guaifenesin La 600 Mg Tab.Er.12h) 1,200 mg PO BID [facility] Last Admin: 11/03/23 07:26 Dose: 1,200 mg Documented By: FRANCIS Guaifenesin (Guaifenesin 200 Mg/10 Ml 10 Ml Liquid) 10 ml PO Q6H PRN PRN Reason: Cough Last Admin: 11/03/23 09:31 Dose: 10 ml Documented By: FRANCIS Azithromycin 500 mg/ Sodium (Chloride) 250 mls @ 125 mls/hr IV Q24H [facility] Last Infusion: 11/03/23 00:30 Dose: Infused Documented By: KATTY Dextrose (D10) 250 mls @ 750 mls/hr IV Q15M PRN; Protocol PRN Reason: per Hypoglycemia Standing Ord. Piperacillin Sod/Tazobactam (Sod 3.375 gm/ Sodium Chloride) 50 mls @ 100 mls/hr IV Q6H [facility] Last Infusion: 11/03/23 08:06 Dose: Infused Documented By: FRANCIS Insulin Glargine (Insulin Glargine,Hum.Rec.Anlog 100 Unit/Ml 10 Ml Vial) 40 unit SUBCUT DAILY [facility] Last Admin: 11/03/23 08:35 Dose: Not Given Documented By: FRANCIS Non-Admin Reason: already gave 35 and will give one time order Insulin Human Lispro (Insulin Lispro 100 Unit/Ml 3 Ml Vial) 0 unit SUBCUT QIDACHS [facility]; Protocol Last Admin: 11/03/23 11:21 Dose: 16 unit Documented By: FRANCIS Lidocaine (Lidocaine 4 % Patch Adh..Patch) 1 patch TRANSDERMA DAILY [facility]; Protocol Last Admin: 11/03/23 10:42 Dose: 1 patch Documented By: FRANCIS Melatonin (Melatonin 3 Mg Tablet) 6 mg PO BEDTIME PRN PRN Reason: Insomnia Methylprednisolone Sodium Succinate (Methylprednisolone Sod Succ 40 Mg/Ml Vial) 40 mg IVPUSH Q12H [facility] Last Admin: 11/03/23 06:03 Dose: 40 mg Documented By: SUKUMAR Nicotine (Nicotine 14 Mg Patch.Td24) 14 mg TRANSDERMA DAILY [facility] Last Admin: 11/03/23 07:25 Dose: 14 mg Documented By: FRANCIS Ondansetron HCl (Ondansetron Hcl 4 Mg/2 Ml Vial) 4 mg IVPUSH Q8H PRN PRN Reason: Nausea and Vomiting Oxycodone HCl (Oxycodone Hcl Immed Release 5 Mg Tablet) 5 mg PO Q4H PRN PRN Reason: Pain, Moderate(Pain Scale 4-6) Last Admin: 11/03/23 10:22 Dose: 5 mg Documented By: FRANCIS Paroxetine HCl (Paroxetine Hcl 20 Mg Tablet) 20 mg PO DAILY@0900 [facility] Last Admin: 11/03/23 07:29 Dose: 20 mg Documented By: FRANCIS Polyethylene Glycol (Polyethylene Glycol 3350 17 Gm Powd.Pack) 17 gm PO DAILY [facility] Last Admin: 11/03/23 10:41 Dose: 17 gm Documented By: FRANCIS Senna/Docusate Sodium (Sennosides/Docusate Sodium Tablet) 2 tab PO BID [facility] Last Admin: 11/03/23 10:41 Dose: 2 tab Documented By: FRANCIS Sodium Chloride (0.9 % Sodium Chloride Flush 3 Ml Syringe) 3 ml IVFLUSH QSHIFT [facility] Last Admin: 11/03/23 07:28 Dose: 3 ml Documented By: FRANCIS Labs 10/31/23 04:03 11/03/23 05:42 Labs: Laboratory Results - last 24 hr 11/02/23 11/02/23 11/02/23 15:06 16:11 19:37 Hold Purple Top Estim Creat Clear Calc Estimated GFR POC Glucose 230 H 272 H Random Vancomycin 18.8 11/03/23 11/03/23 11/03/23 05:42 06:22 07:01 Hold Purple Top SEE NOTE Estim Creat Clear Calc 53.0 Estimated GFR 50 POC Glucose 335 H Random Vancomycin 11/03/23 11:04 Hold Purple Top Estim Creat Clear Calc Estimated GFR POC Glucose 304 H Random Vancomycin Microbiology Microbiology Results: Microbiology 10/30/23 19:11 Blood Culture - Final Blood - Venous Enterococcus faecalis Assessment and Plan (1) COPD exacerbation: Status: Acute Plan d5 78yo F with pAF on apixaban, COPD not on hO2, gout, HF with unknown EF, gout, DM2 presented with AMS, admitted for hypoxia due to CAP + COPD acute hypoxic resp failure and sepsis due to CAP + COPD exac - continue IV methylprednisolone q12h, scheduled/prn nebs - weaned off O2 - IV vanco 10/30-10/31, IV ceftriaxone 10/31-11/01, IV piperacillin-tazobactam 11/01- , IV azithro 10/30- - continue Breo, guaifenesin - outpt f/u with cna caregiver Dr Diamond in 2 wk sepsis due to Enterococcus faecalis bacteremia - ID consulted, conitnue IV piperacillin-tazobactam, repeat BCx done 11/01, CT A/P and TTE pending, likely 14d of amox-clav after neg BCx if no source identified pAF - continue apixaban - continue diltiazem acute metabolic encephalopathy due to hypoglycemia - resolved gout - continue allopurinol chronic HF with unknown EF - continue furosemide chronic pain - continue cyclobenzaprine + gabapentin, add lidocaine patch DM2 now with hyperglycemia - increase basal-bolus insulin morbid obesity - diet/exercise counseling VTE ppx - apixaban dispo - TBD In my clinical judgment, the patient requires continued inpatient hospitalization for the following reasons: IV ABX + steroids, bacteremia Total time managing care of this patient today: 45 minutes. Quality Stroke Does the patient have a stroke diagnosis?: No VTE Prior VTE?: No VTE Risk Level:: Medical - moderate - high VTE Device Contraindication: Treatment Not Indicated VTE Drug Contraindication: N/A - Med Ordered
[2023-11-03] MEDS: dilTIAZem HCL 50 MG/10 ML VIAL 20 MG IVPUSH (16:00)
[2023-11-03] MEDS: dilTIAZem HCL 125 MG in 0.9 % Sodium Chloride 100 ML 10 MG IVCONT (16:08)
[2023-11-03 16:35] LABS: Anion Gap 18 (12-20)
[2023-11-03 16:39] LABS: Blood Urea Nitrogen 36 mg/dL (9-16); Calcium 8.9 mg/dL (8.4-10.2); Carbon Dioxide 32 mmol/L (22-29); Chloride 93 mmol/L (96-108); Glucose Random 303 mg/dL (60-115); Magnesium 2.2 mg/dL (1.6-2.6); Potassium 3.7 mmol/L (3.3-5.1); Sodium 139 mmol/L (135-145)
[2023-11-03 16:49] LABS: Glucose, Whole Blood 136 mg/dL (60-115)
[2023-11-03 17:00] LABS: Thyroid Stimulating Hormone 0.08 uIU/mL (0.32-4.0)
[2023-11-03 18:06] LABS: Free T4 (Free Thyroxine) 0.85 ng/dL (0.71-1.85)
[2023-11-03 18:54] LABS: Alanine Aminotransferase 17 U/L (0-31); Albumin Level 3.8 g/dL (3.5-5.0); Alkaline Phosphatase 67 U/L (39-117); Aspartate Amino Transferase 15 U/L (5-31); Bilirubin Direct 0.2 mg/dL (0.0-0.5); Bilirubin Total 0.4 mg/dL (0.0-1.0); Total Protein 6.3 g/dL (6.5-8.0)
[2023-11-03] MEDS: levalbuterol HCL 1.25 MG, Ipratropium Bromide 0.5 MG INHALE ×2 (19:19→23:39)
[2023-11-03 20:44] LABS: Glucose, Whole Blood 281 mg/dL (60-115)
[2023-11-03] MEDS: Azithromycin 500 MG in 0.9 % Sodium Chloride 250 ML 125 MG IV (23:38)
[2023-11-04] VITALS (10 sets, daily range): BP systolic 126–150; BP diastolic 59–78; PULSE 65–126; RESP 17–22; TEMP 36.2–36.7; O2SAT 91–98
[2023-11-04] MEDS: dilTIAZem HCL 125 MG in 0.9 % Sodium Chloride 100 ML 15 MG IVCONT ×2 (02:25→12:16)
[2023-11-04] MEDS: oxyCODONE HCl Immed Release 5 MG TABLET PO ×2 (04:10→08:43)
[2023-11-04] MEDS: Piperacillin Sodium/Tazobactam 3.375 GM in 0.9 % Sodium Chloride 50 ML IV ×3 (04:15→16:39)
--- NOTE | 2023-11-04 06:57 | P.CNGI_ITS ---
History of Present Illness Data of Consult Service Date: 11/04/23 Requesting physician: Felicitas Pulido Primary Care Provider: Ti Thompson PA-C HPI Reason for consult: sepsis 78-year-old female with history of paroxysmal atrial fibrillation on Eliquis, COPD not on home oxygen, gout, congestive heart failure, unspecified EF, gout, insulin-dependent diabetes mellitus who I am seeing for sepsis and abn imaging. Patient initially presented w/ AMS. She had been c/o SOB for 2 wks prior to this with productive cough with yellow sputum and wheezing. She denied chest discomfort, palpitations, abdominal pain, changes in urinary or bowel habits. Blood cultures cam e back pos for E, fecalis, UA was negative but imaging with abn appearing pancreas with atrophy and ductal changes, gallbladder sludge / atelectasis and lung congestion. spinal degen and atherosclerosis. LFT have been normal, she still feels her breathing is difficult and not much improved from admission Review of Systems 2 Review of Systems: Constitutional : No Weight loss, ENT/Mouth : No sore throat, No Rhinorrhea Eyes: No Swelling, No Redness Cardiovascular : No Chest Pain, + SOB, No Edema Respiratory : + Cough, + Sputum, +Wheezing Gastrointestinal : see HPI Genitourinary : NO Dysuria, No Urinary Frequency, No Hematuria, No Urgency Musculoskeletal : + joint pain, No Myalgias, No Joint Swelling Skin : No Skin Lesions, No rash Neuro : No Weakness, No Numbness, No Dizziness, No Headache Psych : No Anxiety/Panic, No Depression Heme/Lymph: No Bruising, No Lymphadenopathy Endocrine : No Polyuria, No Polydipsia All other systems reviewed and are negative. [facility] Past Medical History Medical History CHF (congestive heart failure) A-fib Diabetes Cough Hypoventilation syndrome Skin cancer of trunk Skin cancer of face COPD (chronic obstructive pulmonary disease) Failed back syndrome Family History Family History Father No problems noted. Mother No problems noted. Daughter Opiate dependence Substance use disorder Family/Other FH: mental illness Mental health disorder Family history: reviewed and not pertinent Surgical History Surgical History History of knee surgery History of shoulder surgery History of ankle surgery History of hip surgery Social History Social History Household Members: None Household Members Other:: daughter Housing: Apartment Do you presently have visiting nurse or other home services: Yes Unable to assess alcohol history related to: Unknown Alcohol intake: never Patient Tobacco Use Status: Former Tobacco user Quit Date: more than 10 years ago Tobacco use type: Cigarette e-Cigarette/Vaping Use: Never Used service: No Current occupational status: retired and disabled Cognitive needs: Yes Hearing needs: No Vision needs: Yes Meds Allergies Allergy/AdvReac Type Severity Reaction Status Date / Time aspirin [Aspirin] Allergy Mild NAUSEA Verified 10/30/23 14:44 codeine [Codeine] Allergy Mild VOMITING Verified 10/30/23 14:44 Active Medications: Current Medications Acetaminophen (Acetaminophen 325 Mg Tablet) 650 mg PO Q6H PRN PRN Reason: Pain, Mild (Pain Scale 1-3) Last Admin: 11/03/23 09:31 Dose: 650 mg Allopurinol (Allopurinol 300 Mg Tablet) 150 mg PO DAILY COUNT INCLUDES [facility] Last Admin: 11/03/23 07:27 Dose: 150 mg Apixaban (Apixaban 5 Mg Tablet) 5 mg PO BID COUNT INCLUDES [facility] Last Admin: 11/03/23 20:50 Dose: 5 mg Levalbuterol HCl 1.25 mg/ (Ipratropium [place] 0.5 mg) 0 mg INHALE RQ6H COUNT INCLUDES THE [facility] Last Admin: 11/04/23 06:31 Dose: Not Given Cyclobenzaprine HCl (Cyclobenzaprine Hcl 10 Mg Tablet) 10 mg PO TID COUNT INCLUDES [facility] Last Admin: 11/03/23 20:49 Dose: 10 mg Docusate Sodium (Docusate Sodium 100 Mg Capsule) 100 mg PO BID PRN PRN Reason: constipation Famotidine (Famotidine 20 Mg Tablet) 20 mg PO DAILY COUNT INCLUDES [facility] Last Admin: 11/03/23 07:27 Dose: 20 mg Fluticasone/Vilanterol (Fluticasone/Vilanterol 100/25 Blst.W.Dev) 1 puff INHALE RDAILY COUNT INCLUDES [facility] Last Admin: 11/03/23 08:25 Dose: 1 puff Furosemide (Furosemide 40 Mg Tablet) 40 mg PO BID COUNT INCLUDES [facility]; Protocol Last Admin: 11/03/23 20:51 Dose: 40 mg Gabapentin (Gabapentin 600 Mg Tablet) 600 mg PO TID COUNT INCLUDES [facility] Last Admin: 11/03/23 20:50 Dose: 600 mg Glucose (Glucose Gel 15 Gm Gel..Gram.) 15 gm PO Q15M PRN; Protocol PRN Reason: per Hypoglycemia Standing Ord. Guaifenesin (Guaifenesin La 600 Mg Tab.Er.12h) 1,200 mg PO BID JESSICA Last Admin: 11/03/23 20:49 Dose: 1,200 mg Guaifenesin (Guaifenesin 200 Mg/10 Ml 10 Ml Liquid) 10 ml PO Q6H PRN PRN Reason: Cough Last Admin: 11/03/23 09:31 Dose: 10 ml Azithromycin 500 mg/ Sodium (Chloride) 250 mls @ 125 mls/hr IV Q24H JESSICA Last Infusion: 11/04/23 01:38 Dose: Infused Dextrose (D10) 250 mls @ 750 mls/hr IV Q15M PRN; Protocol PRN Reason: per Hypoglycemia Standing Ord. Piperacillin Sod/Tazobactam (Sod 3.375 gm/ Sodium Chloride) 50 mls @ 100 mls/hr IV Q6H COUNT INCLUDES [facility] Last Admin: 11/04/23 04:15 Dose: 100 mls/hr Diltiazem HCl 125 mg/ Sodium (Chloride) 125 mls @ 0 mls/hr IVCONT .Q0M COUNT INCLUDES [facility]; Protocol Last Admin: 11/04/23 02:25 Dose: 15 mg/hr, 15 mls/hr Insulin Glargine (Insulin Glargine,Hum.Rec.Anlog 100 Unit/Ml 10 Ml Vial) 40 unit SUBCUT DAILY COUNT INCLUDES [facility] Last Admin: 11/03/23 08:35 Dose: Not Given Insulin Human Lispro (Insulin Lispro 100 Unit/Ml 3 Ml Vial) 0 unit SUBCUT QIDACHS COUNT INCLUDES [facility]; Protocol Last Admin: 11/03/23 22:59 Dose: 12 unit Levalbuterol HCl (Levalbuterol Hcl 1.25 Mg/3 Ml Vial.Neb) 1.25 mg INHALE Q2H PRN PRN Reason: Shortness of Breath/Wheezing Lidocaine (Lidocaine 4 % Patch Adh..Patch) 1 patch TRANSDERMA DAILY COUNT INCLUDES [facility]; Protocol Last Admin: 11/03/23 10:42 Dose: 1 patch Melatonin (Melatonin 3 Mg Tablet) 6 mg PO BEDTIME PRN PRN Reason: Insomnia Methylprednisolone Sodium Succinate (Methylprednisolone Sod Succ 40 Mg/Ml Vial) 40 mg IVPUSH Q12H COUNT INCLUDES [facility] Last Admin: 11/03/23 18:36 Dose: 40 mg Nicotine (Nicotine 14 Mg Patch.Td24) 14 mg TRANSDERMA DAILY COUNT INCLUDES [facility] Last Admin: 11/03/23 07:25 Dose: 14 mg Ondansetron HCl (Ondansetron Hcl 4 Mg/2 Ml Vial) 4 mg IVPUSH Q8H PRN PRN Reason: Nausea and Vomiting Oxycodone HCl (Oxycodone Hcl Immed Release 5 Mg Tablet) 5 mg PO Q4H PRN PRN Reason: Pain, Moderate(Pain Scale 4-6) Last Admin: 11/04/23 04:10 Dose: 5 mg Paroxetine HCl (Paroxetine Hcl 20 Mg Tablet) 20 mg PO DAILY@0900 COUNT [facility]CLUDES [facility] Last Admin: 11/03/23 07:29 Dose: 20 mg Polyethylene Glycol (Polyethylene Glycol 3350 17 Gm Powd.Pack) 17 gm PO DAILY COUNT INCLUDES [facility] Last Admin: 11/03/23 10:41 Dose: 17 gm Senna/Docusate Sodium (Sennosides/Docusate Sodium Tablet) 2 tab PO BID COUNT INCLUDES [facility] Last Admin: 11/03/23 20:51 Dose: 2 tab Sodium Chloride (0.9 % Sodium Chloride Flush 3 Ml Syringe) 3 ml IVFLUSH QSHIFT COUNT INCLUDES [facility] Last Admin: 11/04/23 00:00 Dose: 3 ml Home Medications ?Medication ?Instructions ?Recorded ?Confirmed ?Last Taken ?Type nicotine 14 mg/24 hr daily 1 patch topical DAILY 10/30/23 10/30/23 Unknown History transdermal patch Physical Exam 2 Vital Signs: Vital Signs: Last Vital Signs Temp 97.1 F 11/04/23 04:07 Pulse 65 11/04/23 04:07 Resp 22 H 11/04/23 04:07 BP 148/68 H 11/04/23 04:07 Pulse Ox 91 L 11/04/23 04:07 O2 Del Method Room Air 11/04/23 04:07 O2 Flow Rate 3 11/03/23 00:00 BMI result Body Mass Index 42.9 EXAM: GENERAL: The patient has cushingoid appearance, VITAL SIGNS:see workflow HEENT: Nonicteric sclerae, PERRLA, EOMI. Oropharynx clear. Moist mucous membranes. Conjunctivae appear well perfused. No thyroid mass. CHEST: Chest wall is nontender. HEART: Regular rate and rhythm without murmurs. LUNGS: b/l polyphonic wheeze and reduced air entry ABDOMEN: Soft, positive bowel sounds, nontender, no organomegaly.no flank tenderness SKIN: No rash, no excessive bruising, petechiae, or purpura. NEUROLOGIC: Cranial nerves II-XII intact without motor/sensory deficit. Psych: normal affect Results Labs 11/04/23 08:20 11/04/23 08:20 Labs: BMP 11/03/23 05:42 Sodium 139 Potassium 3.7 D Chloride 93 L Carbon Dioxide 32 H BUN 36 H Creatinine 1.06 Calcium 8.9 Liver Function 11/03/23 Range/Units 05:42 Total Bilirubin 0.4 (0.0-1.0) mg/dL Direct Bilirubin 0.2 (0.0-0.5) mg/dL AST 15 (5-31) U/L ALT 17 (0-31) U/L Alkaline Phosphatase 67 (39-117) U/L Albumin 3.8 (3.5-5.0) g/dL Microbiology Microbiology Results: Microbiology 11/02/23 13:18 Blood - Venous Blood Culture - Preliminary No growth after 24 hours. 11/02/23 13:18 Blood - Venous Blood Culture - Preliminary No growth after 24 hours. 10/30/23 19:11 Blood - Venous Blood Culture - Final Enterococcus faecalis 10/30/23 19:59 Blood - Venous Blood Culture - Preliminary No growth after [address] scan - abdomen: Attestation: I personally reviewed and interpreted this imaging study as follows: (distal pancreas atrophy, sludge GB, dilated cbd ) Assessment and Plan (1) Lesion of pancreas: Status: Acute Plan 1/ Abn imaging with sludge in GB, dilated CBD and pancreatic atrophy, LFT normal, uncertain if the e,fecalis is of biliaty origin based on this data, UA was bland and she denies abdominal pain PLAN: 1/ recommend MRI with and w/o contrast, will also eval for any pancreas lesions, biliary stones,, she is still v symptomatic from her COPD, may need to wait for improvement as she will have to lie flat for some time for the MRI Procedures Date of Service Date of Service: 11/04/23
[2023-11-04 07:32] LABS: Glucose, Whole Blood 278 mg/dL (60-115)
[2023-11-04] MEDS: Fluticasone/Vilanterol 100/25 BLST.W.DEV 1 PUFF INHALE (07:40)
[2023-11-04] MEDS: methylPREDNISolone Sod Succ 40 MG/ML VIAL IVPUSH (07:44)
[2023-11-04 08:33] LABS: Hematocrit 36.2 % (37.0-47.0); Hemoglobin 11.8 g/dl (12.0-16.0); Mean Corpuscular HGB Conc 32.6 g/dl (31.0-35.0); Mean Corpuscular Hemoglobin 32.1 pg (27.0-33.0); Mean Corpuscular Volume 98.4 fL (80.0-98.0); Mean Platelet Volume 10.4 fL (9.4-12.3); Platelet Count 161 X10*3/uL (160-400); Red Blood Count 3.68 X10*6/uL (4.20-5.50); Red Cell Distribution Width 13.7 % (11.0-16.0); White Blood Count 11.7 X10*3/uL (4.8-10.8)
[2023-11-04 08:37] LABS: Venous Blood Gas Refer to POC result
[2023-11-04 08:38] LABS: VBG Base Excess 13.8 mmol/L; VBG HCO3 37 mmol/L (22-26); VBG pCO2 40 mmHg; VBG pH 7.56 (7.32-7.43); VBG pO2 60 mmHg
[2023-11-04] MEDS: guaiFENesin LA 600 MG TAB.ER.12H 1200 MG PO ×2 (08:40→21:43)
[2023-11-04] MEDS: allopurinoL 300 MG TABLET 150 MG PO (08:40)
[2023-11-04] MEDS: Sennosides/Docusate Sodium TABLET 2 TAB PO ×2 (08:40→21:43)
[2023-11-04] MEDS: polyethylene glycoL 3350 17 GM POWD.PACK PO (08:40)
[2023-11-04] MEDS: Famotidine 20 MG TABLET PO (08:40)
[2023-11-04] MEDS: Gabapentin 600 MG TABLET PO ×3 (08:40→21:43)
[2023-11-04] MEDS: PARoxetine HCL 20 MG TABLET PO (08:42)
[2023-11-04] MEDS: Furosemide 40 MG TABLET PO ×2 (08:42→21:46)
[2023-11-04] MEDS: Cyclobenzaprine HCl 10 MG TABLET PO ×3 (08:43→21:43)
[2023-11-04] MEDS: Apixaban 5 MG TABLET PO ×2 (08:43→21:43)
[2023-11-04] MEDS: Lidocaine 4 % Patch ADH..PATCH 1 PATCH TRANSDERMA (08:43)
[2023-11-04] MEDS: Nicotine 14 MG PATCH.TD24 TRANSDERMA (08:43)
[2023-11-04] MEDS: Insulin Glargine,Hum.rec.anlog 100 UNIT/ML 10 ML VIAL 42 UNIT SUBCUT (08:44)
[2023-11-04] MEDS: Insulin Lispro 100 UNIT/ML 3 ML VIAL SUBCUT ×4 (08:44→22:36)
[2023-11-04] MEDS: 0.9 % Sodium Chloride Flush 3 ML SYRINGE IVFLUSH ×4 (08:44→20:22)
[2023-11-04 08:55] LABS: Anion Gap 18 (12-20); Blood Urea Nitrogen 37 mg/dL (9-16); Calcium 9.1 mg/dL (8.4-10.2); Carbon Dioxide 32 mmol/L (22-29); Chloride 92 mmol/L (96-108); Creatinine Clr Calc Pharmacy 47.7; Estimated Glomerular Filt Rate 44; Magnesium 2.3 mg/dL (1.6-2.6); Potassium 3.9 mmol/L (3.3-5.1); Sodium 138 mmol/L (135-145)
[2023-11-04 09:01] LABS: Glucose Random 372 mg/dL (60-115)
[2023-11-04 09:10] LABS: Procalcitonin 0.09 ng/mL
[2023-11-04 11:27] LABS: Glucose, Whole Blood 308 mg/dL (60-115)
[2023-11-04] MEDS: levalbuterol HCL 1.25 MG, Ipratropium Bromide 0.5 MG INHALE ×3 (11:29→19:53)
--- NOTE | 2023-11-04 13:15 | HO.PM.IMPN ---
Subjective Subjective Date of Service: 11/04/23 Interval History: still wheezing and dyspneic AF/RVR in 110s-120s with diltiazem gtt at 15 mg/hr c/o back pain Review of Systems Review of Systems: Yes all other systems are reviewed and are negative Physical Exam Vital Signs: Vital Signs: Last Vital Signs Temp 97.3 F 11/04/23 07:41 Pulse 84 11/04/23 11:30 Resp 18 11/04/23 11:30 BP 139/63 11/04/23 07:41 Pulse Ox 92 11/04/23 07:41 O2 Del Method Room Air 11/04/23 07:41 O2 Flow Rate 3 11/03/23 00:00 BMI result Body Mass Index 42.9 Gen: mild respiratory distress HEENT: sclera anicteric, moist mucus membranes Neck: supple Lungs: diminished, extensive expiratory wheezing, prolonged expiratory phase Heart: rapid, irregular, no murmurs Abd: soft, non-tender, non-distended, obese Ext: no edema Skin: warm/well-perfused Neuro: alert and oriented x3, no focal findings Psych: appropriate affect Objective Data Active Medications Acetaminophen (Acetaminophen 325 Mg Tablet) 650 mg PO Q6H PRN PRN Reason: Pain, Mild (Pain Scale 1-3) Last Admin: 11/03/23 09:31 Dose: 650 mg Documented By: FRANCIS Allopurinol (Allopurinol 300 Mg Tablet) 150 mg PO DAILY [facility] Last Admin: 11/04/23 08:40 Dose: 150 mg Documented By: TANO Comments: Apixaban (Apixaban 5 Mg Tablet) 5 mg PO BID [facility] Last Admin: 11/04/23 08:43 Dose: 5 mg Documented By: TANO Levalbuterol HCl 1.25 mg/ (Ipratropium [place] 0.5 mg) 0 mg INHALE RQ4H WHILE AWAKE [facility] Last Admin: 11/04/23 11:29 Dose: 1 dose Documented By: ADEOLA Cyclobenzaprine HCl (Cyclobenzaprine Hcl 10 Mg Tablet) 10 mg PO TID [facility] Last Admin: 11/04/23 08:43 Dose: 10 mg Documented By: TANO Docusate Sodium (Docusate Sodium 100 Mg Capsule) 100 mg PO BID PRN PRN Reason: constipation Famotidine (Famotidine 20 Mg Tablet) 20 mg PO DAILY [facility] Last Admin: 11/04/23 08:40 Dose: 20 mg Documented By: TANO Fluticasone/Vilanterol (Fluticasone/Vilanterol 100/25 Blst.W.Dev) 1 puff INHALE RDAILY [facility] Last Admin: 11/04/23 07:40 Dose: 1 puff Documented By: ADEOLA Furosemide (Furosemide 40 Mg Tablet) 40 mg PO BID [facility]; Protocol Last Admin: 11/04/23 08:42 Dose: 40 mg Documented By: TANO Gabapentin (Gabapentin 600 Mg Tablet) 600 mg PO TID [facility] Last Admin: 11/04/23 08:40 Dose: 600 mg Documented By: TANO Glucose (Glucose Gel 15 Gm Gel..Gram.) 15 gm PO Q15M PRN; Protocol PRN Reason: per Hypoglycemia Standing Ord. Guaifenesin (Guaifenesin [place] 600 Mg Tab.Er.12h) 1,200 mg PO BID [facility] Last Admin: 11/04/23 08:40 Dose: 1,200 mg Documented By: TANO Guaifenesin (Guaifenesin 200 Mg/10 Ml 10 Ml Liquid) 10 ml PO Q6H PRN PRN Reason: Cough Last Admin: 11/03/23 09:31 Dose: 10 ml Documented By: FRANCIS Azithromycin 500 mg/ Sodium (Chloride) 250 mls @ 125 mls/hr IV Q24H [facility] Last Infusion: 11/04/23 01:38 Dose: Infused Documented By: HUGO Dextrose (D10) 250 mls @ 750 mls/hr IV Q15M PRN; Protocol PRN Reason: per Hypoglycemia Standing Ord. Diltiazem HCl 125 mg/ Sodium (Chloride) 125 mls @ 0 mls/hr IVCONT .Q0M [facility]; Protocol Last Admin: 11/04/23 12:16 Dose: 15 mg/hr, 15 mls/hr Documented By: TANO Piperacillin Sod/Tazobactam (Sod 3.375 gm/ Sodium Chloride) 50 mls @ 100 mls/hr IV Q6H [facility] Last Infusion: 11/04/23 11:20 Dose: Infused Documented By: TANO Insulin Glargine (Insulin Glargine,Hum.Rec.Anlog 100 Unit/Ml 10 Ml Vial) 42 unit SUBCUT DAILY [facility] Last Admin: 11/04/23 08:44 Dose: 42 unit Documented By: TANO Insulin Human Lispro (Insulin Lispro 100 Unit/Ml 3 Ml Vial) 0 unit SUBCUT QIDACHS [facility]; Protocol Last Admin: 11/04/23 11:56 Dose: 16 unit Documented By: TANO Levalbuterol HCl (Levalbuterol Hcl 1.25 Mg/3 Ml Vial.Neb) 1.25 mg INHALE Q2H PRN PRN Reason: Shortness of Breath/Wheezing Lidocaine (Lidocaine 4 % Patch Adh..Patch) 1 patch TRANSDERMA DAILY [facility]; Protocol Last Admin: 11/04/23 08:43 Dose: 1 patch Documented By: TANO Melatonin (Melatonin 3 Mg Tablet) 6 mg PO BEDTIME PRN PRN Reason: Insomnia Methylprednisolone Sodium Succinate (Methylprednisolone Sod Succ 40 Mg/Ml Vial) 60 mg IVPUSH Q8H [facility] Morphine Sulfate (Morphine Sulfate 2 Mg/Ml Cartridge) 2 mg IVPUSH Q3H PRN; Protocol PRN Reason: severe pain Nicotine (Nicotine 14 Mg Patch.Td24) 14 mg TRANSDERMA DAILY [facility] Last Admin: 11/04/23 08:43 Dose: 14 mg Documented By: TANO Ondansetron HCl (Ondansetron Hcl 4 Mg/2 Ml Vial) 4 mg IVPUSH Q8H PRN PRN Reason: Nausea and Vomiting Oxycodone HCl (Oxycodone Hcl Immed Release 5 Mg Tablet) 5 mg PO Q4H PRN PRN Reason: Pain, Moderate(Pain Scale 4-6) Last Admin: 11/04/23 08:43 Dose: 5 mg Documented By: TANO Paroxetine HCl (Paroxetine Hcl 20 Mg Tablet) 20 mg PO DAILY@0900 [facility] Last Admin: 11/04/23 08:42 Dose: 20 mg Documented By: TANO Polyethylene Glycol (Polyethylene Glycol 3350 17 Gm Powd.Pack) 17 gm PO DAILY [facility] Last Admin: 11/04/23 08:40 Dose: 17 gm Documented By: TANO Senna/Docusate Sodium (Sennosides/Docusate Sodium Tablet) 2 tab PO BID [facility] Last Admin: 11/04/23 08:40 Dose: 2 tab Documented By: TANO Sodium Chloride (0.9 % Sodium Chloride Flush 3 Ml Syringe) 3 ml IVFLUSH QSHIFT JESSICA Last Admin: 11/04/23 08:44 Dose: 3 ml Documented By: TANO Labs 11/04/23 08:20 11/04/23 08:20 Labs: Laboratory Results - last 24 hr 11/03/23 11/03/23 11/03/23 05:42 16:45 20:37 MCV MCH MCHC RDW Plt Count MPV Absolute Nucleated RBC Nucleated RBC % (auto) VBG pH VBG pCO2 VBG pO2 VBG HCO3 VBG O2 Saturation VBG Base Excess Anion Gap 18 Estim Creat Clear Calc 53.0 Estimated GFR 50 POC Glucose 136 H 281 H Random Glucose 303 H Calcium 8.9 Magnesium 2.2 Total Bilirubin 0.4 Direct Bilirubin 0.2 AST 15 ALT 17 Alkaline Phosphatase 67 Total Protein 6.3 L Albumin 3.8 Procalcitonin TSH 0.08 L Free T4 0.85 11/04/23 11/04/23 11/04/23 07:21 08:20 08:27 MCV 98.4 H MCH 32.1 MCHC 32.6 RDW 13.7 Plt Count 161 D MPV 10.4 Absolute Nucleated RBC 0.000 Nucleated RBC % (auto) 0.0 VBG pH 7.56 H VBG pCO2 40 VBG pO2 60 VBG HCO3 37 H VBG O2 Saturation 91.0 VBG Base Excess 13.8 Anion Gap 18 Estim Creat Clear Calc 47.7 Estimated GFR 44 POC Glucose 278 H Random Glucose 372 H* Calcium 9.1 Magnesium 2.3 Total Bilirubin Direct Bilirubin AST ALT Alkaline Phosphatase Total Protein Albumin Procalcitonin 0.09 TSH Free T4 11/04/23 11:22 MCV MCH MCHC RDW Plt Count MPV Absolute Nucleated RBC Nucleated RBC % (auto) VBG pH VBG pCO2 VBG pO2 VBG HCO3 VBG O2 Saturation VBG Base Excess Anion Gap Estim Creat Clear Calc Estimated GFR POC Glucose 308 H Random Glucose Calcium Magnesium Total Bilirubin Direct Bilirubin AST ALT Alkaline Phosphatase Total Protein Albumin Procalcitonin TSH Free T4 Impressions Abdomen/Pelvis CT 11/02/23 15:42 IMPRESSION: The pancreas is abnormal. There is an abrupt change in size with atrophy and ductal dilation beyond the pancreatic neck. An occult lesion should be excluded. Extra and intrahepatic biliary dilation to the level of the ampulla. There are small gallstones layering in the gallbladder which is mildly distended. A nonopaque distal bile duct calculus cannot be excluded. Lower lung opacities most likely atelectasis. Nonspecific small round low attenuating lesion in the spleen. In the absence of a known primary malignancy this does not require specific imaging follow-up. Large amount of fecal residue. Pelvic floor relaxation. No abscess demonstrated Fleischner guidelines were followed. Microbiology Microbiology Results: Microbiology 11/02/23 13:18 Blood Culture - Preliminary Blood - Venous No growth after 24 hours. 11/02/23 13:18 Blood Culture - Preliminary Blood - Venous No growth after 24 hours. Assessment and Plan (1) COPD exacerbation: Status: Acute Plan d6 78yo F with pAF on apixaban, COPD not on hO2, gout, HF with unknown EF, gout, DM2 presented with AMS, admitted for hypoxia due to CAP + COPD acute hypoxic resp failure and sepsis due to CAP + COPD exac - increase IV methylprednisolone to 60mg q8h, scheduled/prn nebs - weaned off O2 - IV vanco 10/30-10/31, IV ceftriaxone 10/31-11/01, IV piperacillin-tazobactam 11/01-, IV azithro 10/30- - continue Breo, guaifenesin - outpt f/u with trouble shooting mechanic Dr Diamond in 2 wk AF/RVR - on diltiazem gtt at 15 mg/hr and will give digoxin 250 mcg IV q6h x 2 doses - continue apixaban - Cardiology consult - TTE pending sepsis due to Enterococcus faecalis bacteremia - ID consulted, conitnue IV piperacillin-tazobactam, repeat BCx done 11/01 and negative thus far, TTE pending, likely 14d of amox-clav after neg BCx if no source identified possible pancreatic mass - on CT A/P, noted to have abrupt change in size with atrophy + ductal dilation beyond pancreatic neck; also extra- and intra-hepatic biliary dilation to level of ampulla - GI consulted, will need MRI with/without contrast but need to wait until she is more stable from a cardiopulmonary perspective acute metabolic encephalopathy due to hypoglycemia - resolved gout - continue allopurinol chronic HF with unknown EF - continue maintenance furosemide chronic pain - continue cyclobenzaprine + gabapentin, added lidocaine patch + prn morphine DM2 now with hyperglycemia - increase basal-bolus insulin morbid obesity - diet/exercise counseling VTE ppx - apixaban dispo - TBD In my clinical judgment, the patient requires continued inpatient hospitalization for the following reasons: IV ABX + steroids, bacteremia with unknown source, rate control Total time managing care of this patient today: 55 minutes. Quality Stroke Does the patient have a stroke diagnosis?: No VTE Prior VTE?: No VTE Risk Level:: Medical - moderate - high VTE Device Contraindication: Treatment Not Indicated VTE Drug Contraindication: N/A - Med Ordered
--- NOTE | 2023-11-04 14:08 | PM.CNCAR ---
History of Present Illness History of Present Illness Date of Service: 11/04/23 Requesting physician: Felicitas Pulido Chief complaint: COPD, Afib Narrative: 78-year-old female with known history of COPD presenting with shortness of breath due to COPD exacerbation. She is on antibiotics. She also has inter couple faecalis bacteremia. She has a pancreatic mass on CT scan and will be seen by Gastroenterology. She is denying any palpitations. Her main complaint is shortness of breath. She is quite wheezy on examination. She has been getting albuterol and has AFib with RVR and currently is on Cardizem drip. She is on anticoagulation previously with apixaban 5 mg twice a day. [facility] Past Medical History Medical History CHF (congestive heart failure) A-fib Diabetes Cough Hypoventilation syndrome Skin cancer of trunk Skin cancer of face COPD (chronic obstructive pulmonary disease) Failed back syndrome Family History Family History Father No problems noted. Mother No problems noted. Daughter Opiate dependence Substance use disorder Family/Other FH: mental illness Mental health disorder Family history: reviewed and not pertinent Surgical History Surgical History History of knee surgery History of shoulder surgery History of ankle surgery History of hip surgery Social History Social History Household Members: None Household Members Other:: daughter Housing: Apartment Do you presently have visiting nurse or other home services: Yes Unable to assess alcohol history related to: Unknown Alcohol intake: never Patient Tobacco Use Status: Former Tobacco user Quit Date: more than 10 years ago Tobacco use type: Cigarette e-Cigarette/Vaping Use: Never Used service: No Current occupational status: retired and disabled Cognitive needs: Yes Hearing needs: No Vision needs: Yes Meds Allergies Allergy/AdvReac Type Severity Reaction Status Date / Time aspirin [Aspirin] Allergy Mild NAUSEA Verified 10/30/23 14:44 codeine [Codeine] Allergy Mild VOMITING Verified 10/30/23 14:44 Active Medications: Current Medications Acetaminophen (Acetaminophen 325 Mg Tablet) 650 mg PO Q6H PRN PRN Reason: Pain, Mild (Pain Scale 1-3) Last Admin: 11/03/23 09:31 Dose: 650 mg Allopurinol (Allopurinol 300 Mg Tablet) 150 mg PO DAILY [facility] Last Admin: 11/04/23 08:40 Dose: 150 mg Apixaban (Apixaban 5 Mg Tablet) 5 mg PO BID [facility] Last Admin: 11/04/23 08:43 Dose: 5 mg Levalbuterol HCl 1.25 mg/ (Ipratropium [place] 0.5 mg) 0 mg INHALE RQ4H WHILE AWAKE [facility] Last Admin: 11/04/23 11:29 Dose: 1 dose Cyclobenzaprine HCl (Cyclobenzaprine Hcl 10 Mg Tablet) 10 mg PO TID [facility] Last Admin: 11/04/23 08:43 Dose: 10 mg Digoxin (Digoxin 0.5 Mg/2 Ml Ampul) 0.25 mg IVPUSH Q6H [facility] Stop: 11/04/23 20:01 Docusate Sodium (Docusate Sodium 100 Mg Capsule) 100 mg PO BID PRN PRN Reason: constipation Famotidine (Famotidine 20 Mg Tablet) 20 mg PO DAILY [facility] Last Admin: 11/04/23 08:40 Dose: 20 mg Fluticasone/Vilanterol (Fluticasone/Vilanterol 100/25 Blst.W.Dev) 1 puff INHALE RDAILY [facility] Last Admin: 11/04/23 07:40 Dose: 1 puff Furosemide (Furosemide 40 Mg Tablet) 40 mg PO BID [facility]; Protocol Last Admin: 11/04/23 08:42 Dose: 40 mg Gabapentin (Gabapentin 600 Mg Tablet) 600 mg PO TID [facility] Last Admin: 11/04/23 08:40 Dose: 600 mg Glucose (Glucose Gel 15 Gm Gel..Gram.) 15 gm PO Q15M PRN; Protocol PRN Reason: per Hypoglycemia Standing Ord. Guaifenesin (Guaifenesin La 600 Mg Tab.Er.12h) 1,200 mg PO BID [facility] Last Admin: 11/04/23 08:40 Dose: 1,200 mg Guaifenesin (Guaifenesin 200 Mg/10 Ml 10 Ml Liquid) 10 ml PO Q6H PRN PRN Reason: Cough Last Admin: 11/03/23 09:31 Dose: 10 ml Azithromycin 500 mg/ Sodium (Chloride) 250 mls @ 125 mls/hr IV Q24H [facility] Last Infusion: 11/04/23 01:38 Dose: Infused Dextrose (D10) 250 mls @ 750 mls/hr IV Q15M PRN; Protocol PRN Reason: per Hypoglycemia Standing Ord. Diltiazem HCl 125 mg/ Sodium (Chloride) 125 mls @ 0 mls/hr IVCONT .Q0M [facility]; Protocol Last Admin: 11/04/23 12:16 Dose: 15 mg/hr, 15 mls/hr Piperacillin Sod/Tazobactam (Sod 3.375 gm/ Sodium Chloride) 50 mls @ 100 mls/hr IV Q6H [facility] Last Infusion: 11/04/23 11:20 Dose: Infused Insulin Glargine (Insulin Glargine,Hum.Rec.Anlog 100 Unit/Ml 10 Ml Vial) 42 unit SUBCUT DAILY [facility] Last Admin: 11/04/23 08:44 Dose: 42 unit Insulin Human Lispro (Insulin Lispro 100 Unit/Ml 3 Ml Vial) 0 unit SUBCUT QIDACHS [facility]; Protocol Last Admin: 11/04/23 11:56 Dose: 16 unit Levalbuterol HCl (Levalbuterol Hcl 1.25 Mg/3 Ml Vial.Neb) 1.25 mg INHALE Q2H PRN PRN Reason: Shortness of Breath/Wheezing Lidocaine (Lidocaine 4 % Patch Adh..Patch) 1 patch TRANSDERMA DAILY [facility]; Protocol Last Admin: 11/04/23 08:43 Dose: 1 patch Melatonin (Melatonin 3 Mg Tablet) 6 mg PO BEDTIME PRN PRN Reason: Insomnia Methylprednisolone Sodium Succinate (Methylprednisolone Sod Succ 125 Mg/2 Ml Vial) 60 mg IVPUSH Q8H [facility] Morphine Sulfate (Morphine Sulfate 2 Mg/Ml Cartridge) 2 mg IVPUSH Q3H PRN; Protocol PRN Reason: severe pain Nicotine (Nicotine 14 Mg Patch.Td24) 14 mg TRANSDERMA DAILY [facility] Last Admin: 11/04/23 08:43 Dose: 14 mg Ondansetron HCl (Ondansetron Hcl 4 Mg/2 Ml Vial) 4 mg IVPUSH Q8H PRN PRN Reason: Nausea and Vomiting Oxycodone HCl (Oxycodone Hcl Immed Release 5 Mg Tablet) 5 mg PO Q4H PRN PRN Reason: Pain, Moderate(Pain Scale 4-6) Last Admin: 11/04/23 08:43 Dose: 5 mg Paroxetine HCl (Paroxetine Hcl 20 Mg Tablet) 20 mg PO DAILY@0900 [facility] Last Admin: 11/04/23 08:42 Dose: 20 mg Polyethylene Glycol (Polyethylene Glycol 3350 17 Gm Powd.Pack) 17 gm PO DAILY [facility] Last Admin: 11/04/23 08:40 Dose: 17 gm Senna/Docusate Sodium (Sennosides/Docusate Sodium Tablet) 2 tab PO BID [facility] Last Admin: 11/04/23 08:40 Dose: 2 tab Sodium Chloride (0.9 % Sodium Chloride Flush 3 Ml Syringe) 3 ml IVFLUSH QSHIFT [facility] Last Admin: 11/04/23 08:44 Dose: 3 ml Home Medications ?Medication ?Instructions ?Recorded ?Confirmed ?Last Taken ?Type nicotine 14 mg/24 hr daily 1 patch topical DAILY 10/30/23 10/30/23 Unknown History transdermal patch Physical Exam Vital Signs: Vital Signs: Last Vital Signs Temp 97.3 F 11/04/23 07:41 Pulse 84 11/04/23 11:30 Resp 18 11/04/23 11:30 BP 139/63 11/04/23 07:41 Pulse Ox 92 11/04/23 07:41 O2 Del Method Room Air 11/04/23 07:41 O2 Flow Rate 3 11/03/23 00:00 BMI result Body Mass Index 42.9 GENERAL APPEARANCE: Shortness of breath, wheezing. NECK: no carotid bruit, no jugular venous distention. SKIN: no suspicious lesions, warm and dry. HEART: no murmurs, irregular rate and rhythm. Tachycardic. LUNGS: Bilateral expiratory wheezes. ABDOMEN: soft, nontender. EXTREMITIES: no edema. PERIPHERAL PULSES: equal. NEUROLOGIC: No gross deficits, AAO X 3 Objective Labs and Meds 11/04/23 08:20 11/04/23 08:20 Lab results: Laboratory Results - last 24 hr 11/03/23 11/03/23 11/03/23 05:42 16:45 20:37 WBC RBC Hgb Hct MCV MCH MCHC RDW Plt Count MPV Absolute Nucleated RBC Nucleated RBC % (auto) VBG pH VBG pCO2 VBG pO2 VBG HCO3 VBG O2 Saturation VBG Base Excess Sodium 139 Potassium 3.7 D Chloride 93 L Carbon Dioxide 32 H Anion Gap 18 BUN 36 H Creatinine 1.06 Estim Creat Clear Calc 53.0 Estimated GFR 50 POC Glucose 136 H 281 H Random Glucose 303 H Calcium 8.9 Magnesium 2.2 Total Bilirubin 0.4 Direct Bilirubin 0.2 AST 15 ALT 17 Alkaline Phosphatase 67 Total Protein 6.3 L Albumin 3.8 Procalcitonin TSH 0.08 L Free T4 0.85 11/04/23 11/04/23 11/04/23 07:21 08:20 08:27 WBC 11.7 H RBC 3.68 L Hgb 11.8 L Hct 36.2 L MCV 98.4 H MCH 32.1 MCHC 32.6 RDW 13.7 Plt Count 161 D MPV 10.4 Absolute Nucleated RBC 0.000 Nucleated RBC % (auto) 0.0 VBG pH 7.56 H VBG pCO2 40 VBG pO2 60 VBG HCO3 37 H VBG O2 Saturation 91.0 VBG Base Excess 13.8 Sodium 138 Potassium 3.9 Chloride 92 L Carbon Dioxide 32 H Anion Gap 18 BUN 37 H Creatinine 1.18 Estim Creat Clear Calc 47.7 Estimated GFR 44 POC Glucose 278 H Random Glucose 372 H* Calcium 9.1 Magnesium 2.3 Total Bilirubin Direct Bilirubin AST ALT Alkaline Phosphatase Total Protein Albumin Procalcitonin 0.09 TSH Free T4 11/04/23 11:22 WBC RBC Hgb Hct MCV MCH MCHC RDW Plt Count MPV Absolute Nucleated RBC Nucleated RBC % (auto) VBG pH VBG pCO2 VBG pO2 VBG HCO3 VBG O2 Saturation VBG Base Excess Sodium Potassium Chloride Carbon Dioxide Anion Gap BUN Creatinine Estim Creat Clear Calc Estimated GFR POC Glucose 308 H Random Glucose Calcium Magnesium Total Bilirubin Direct Bilirubin AST ALT Alkaline Phosphatase Total Protein Albumin Procalcitonin TSH Free T4 Imaging Radiologist's impression: Impressions Abdomen/Pelvis CT 11/02/23 15:42 IMPRESSION: The pancreas is abnormal. There is an abrupt change in size with atrophy and ductal dilation beyond the pancreatic neck. An occult lesion should be excluded. Extra and intrahepatic biliary dilation to the level of the ampulla. There are small gallstones layering in the gallbladder which is mildly distended. A nonopaque distal bile duct calculus cannot be excluded. Lower lung opacities most likely atelectasis. Nonspecific small round low attenuating lesion in the spleen. In the absence of a known primary malignancy this does not require specific imaging follow-up. Large amount of fecal residue. Pelvic floor relaxation. No abscess demonstrated Fleischner guidelines were followed. Assessment and Plan (1) COPD exacerbation: Status: Acute (2) Paroxysmal A-fib: Status: Acute Plan Pleasant 78 year female with COPD exacerbation and AFib with RVR. Clinically not volume overloaded. She takes diltiazem at home and is currently on diltiazem drip. Add digoxin 250 micro g IV x2, 6 hours apart. Continue Cardizem drip. Continue anticoagulation. Underlying etiology is COPD exacerbation and as a lungs improved anticipate improvement in the heart rate control. Further workup for the pancreatic lesion. Thank you for allowing me to participate in the care of your patient. Please feel free to contact me if you have any questions. Procedures Date of Service Date of Service: 11/04/23
[2023-11-04] MEDS: Morphine Sulfate 2 MG/ML CARTRIDGE IVPUSH ×2 (14:19→20:16)
[2023-11-04] MEDS: Digoxin 0.5 MG/2 ML AMPUL 0.25 MG IVPUSH ×2 (14:20→21:47)
[2023-11-04] MEDS: methylPREDNISolone Sod Succ 125 MG/2 ML VIAL 60 MG IVPUSH ×2 (14:20→23:14)
[2023-11-04 16:11] LABS: Glucose, Whole Blood 122 mg/dL (60-115)
[2023-11-04] MEDS: Azithromycin 500 MG in 0.9 % Sodium Chloride 250 ML 125 MG IV (20:17)
[2023-11-04 22:16] LABS: Glucose, Whole Blood 322 mg/dL (60-115)
[2023-11-05] VITALS (16 sets, daily range): BP systolic 114–159; BP diastolic 64–96; PULSE 61–167; RESP 16–22; TEMP 36.1–36.6; O2SAT 92–98
[2023-11-05] MEDS: Piperacillin Sodium/Tazobactam 3.375 GM in 0.9 % Sodium Chloride 50 ML IV ×5 (00:38→22:27)
[2023-11-05] MEDS: Morphine Sulfate 2 MG/ML CARTRIDGE IVPUSH ×5 (00:44→19:45)
[2023-11-05] MEDS: guaiFENesin 200 MG/10 ML 10 ML LIQUID PO (04:23)
--- NOTE | 2023-11-05 07:00 | CA_ITS ---
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 - Normal right ventricular cavity size and systolic function. - Limited assessment of the valves. No obvious vegetation. Findings Procedure Information Contrast agent, definity, is being given per protocol without apparent complications. The quality of the study was technically difficult. The study quality is limited by patients body habitus and lung artifact. Left Ventricle Normal left ventricular size and systolic function. The visually estimated ejection fraction is between 60-65%. Diastolic function is indeterminate on the basis of available data. Right Ventricle Normal right ventricular cavity size and systolic function. Atria The left atrium is normal in size. Aortic Valve The aortic valve was not well visualized. There is no aortic valve stenosis. There is no aortic valve regurgitation. Mitral Valve Likely normal mitral valve structure and function. There is no mitral valve regurgitation. There is no mitral valve stenosis. Pulmonic Valve The pulmonic valve is likely normal. Tricuspid Valve Normal tricuspid valve structure. There is trace tricuspid valve regurgitation. Tricuspid regurgitation envelope is inadequate for calculation of right ventricular systolic pressure. Normal right atrial pressure. Great Vessels All visible segments of the aorta are normal in size. Venous The inferior vena cava is normal in size and collapses greater than 50% with inspiration. Pericardium/Pleural There is no evidence of pericardial effusion. Prior Study Comparison No prior study available for comparison. Recommendations, Care & Conclusions Consider a MARK if clinically appropriate. Measurements 2D Linear Measurements LVOT Diam: 2.10 3.0+(-)1.3 cm 2D Systolic Function EF 4C: 49.20 >55% EF 2C: 58.30 >55% EF BiP: 54.60 >55% Mitral Valve MV Pk E: 0.67 MV PK A: 1.03 MV Decel Time: 222.00 E/A: 0.70 E'Medial: 5.00 E/E' Med: 13.50 PHT: 65.00 MVA PHT: 3.38 Decel Bracken: 3.03 Aortic Valve AoV Pk Danis: 1.76 AoV Pk Grad: 12.00 CARMEN: 2.31 LVOT LVOT Pk Danis: 1.19 LVOT Mn Danis: 0.82 LVOT VTI: 0.17 LVOT Pk Grad: 6.00 LVOT Mn Grad: 3.00 LVOT Diam: 2.10 LVOT Area: 3.46 Diastolic Function MV Pk E: 0.67 MV Pk A: 1.03 E/A: 0.70 E'Medial: 5.00 E/E' Med: 13.50 Right Ventricle TAPSE (mm): 17.00 TVS' Danis: 12.10 Great Vessels Aorta Sinus of Valsalva: 3.20 2.0-3.5 cm Updated in Other Vendor System with Status of Final Naldo Moncada MD electronically signed on 11/05/2023 5:06:06 PM with status of Final
[2023-11-05] MEDS: Gabapentin 600 MG TABLET PO ×3 (08:40→19:46)
[2023-11-05] MEDS: allopurinoL 300 MG TABLET 150 MG PO (08:40)
[2023-11-05] MEDS: Cyclobenzaprine HCl 10 MG TABLET PO ×3 (08:40→19:45)
[2023-11-05] MEDS: PARoxetine HCL 20 MG TABLET PO (08:41)
[2023-11-05] MEDS: Furosemide 40 MG TABLET PO ×2 (08:41→19:46)
[2023-11-05] MEDS: polyethylene glycoL 3350 17 GM POWD.PACK PO (08:41)
[2023-11-05] MEDS: guaiFENesin LA 600 MG TAB.ER.12H 1200 MG PO ×2 (08:41→19:46)
[2023-11-05] MEDS: Famotidine 20 MG TABLET PO (08:41)
[2023-11-05] MEDS: methylPREDNISolone Sod Succ 125 MG/2 ML VIAL 60 MG IVPUSH ×3 (08:41→22:27)
[2023-11-05] MEDS: Apixaban 5 MG TABLET PO ×2 (08:41→19:45)
[2023-11-05] MEDS: Sennosides/Docusate Sodium TABLET 2 TAB PO ×2 (08:41→19:45)
[2023-11-05] MEDS: Nicotine 14 MG PATCH.TD24 TRANSDERMA (08:42)
[2023-11-05] MEDS: Lidocaine 4 % Patch ADH..PATCH 1 PATCH TRANSDERMA (08:42)
[2023-11-05] MEDS: dilTIAZem HCL 50 MG/10 ML VIAL 20 MG IVPUSH (08:43)
[2023-11-05] MEDS: dilTIAZem HCL 125 MG in 0.9 % Sodium Chloride 100 ML IVCONT (08:50)
[2023-11-05] MEDS: Insulin Glargine,Hum.rec.anlog 100 UNIT/ML 10 ML VIAL 48 UNIT SUBCUT (08:56)
[2023-11-05] MEDS: Insulin Lispro 100 UNIT/ML 3 ML VIAL SUBCUT ×3 (08:56→22:29)
[2023-11-05] MEDS: 0.9 % Sodium Chloride Flush 3 ML SYRINGE IVFLUSH ×3 (08:57→19:46)
[2023-11-05 09:02] LABS: Venous Blood Gas Refer to POC result
[2023-11-05 09:03] LABS: Glucose, Whole Blood 457 mg/dL (60-115)
[2023-11-05 09:03] LABS: VBG Base Excess 14.8 mmol/L; VBG HCO3 37 mmol/L (22-26); VBG pCO2 39 mmHg; VBG pO2 57 mmHg
[2023-11-05 09:12] LABS: Beta-Hydroxybutyrate 0.21 mmol/L (0.02-0.27)
[2023-11-05 09:44] LABS: VBG pH 7.59 (7.32-7.43)
[2023-11-05 09:47] LABS: Anion Gap 19 (12-20); Blood Urea Nitrogen 39 mg/dL (9-16); Carbon Dioxide 31 mmol/L (22-29); Chloride 90 mmol/L (96-108); Creatinine Clr Calc Pharmacy 43.6; Estimated Glomerular Filt Rate 40; Sodium 136 mmol/L (135-145)
[2023-11-05 10:01] LABS: Glucose Random 545 mg/dL (60-115)
[2023-11-05] MEDS: Insulin Regular, Human 100 UNIT/ML 3 ML VIAL IVPUSH (10:59)
--- NOTE | 2023-11-05 11:04 | ECG_ITS ---
Test Reason : CP Blood Pressure : / mmHG Vent. Rate : 148 BPM Atrial Rate : 000 BPM P-R Int : 000 ms QRS Dur : 092 ms QT Int : 294 ms P-R-T Axes : 000 -02 069 degrees QTc Int : 461 ms Atrial fibrillation with rapid ventricular response Abnormal ECG When compared with ECG of 03-NOV-2023 15:45, Questionable change in QRS axis T wave inversion no longer evident in Inferior leads Referred By: Felicitas Pulido Electronically Signed By:TARI SALAZAR
--- NOTE | 2023-11-05 11:59 | PM.PNCARD ---
Subjective Subjective Date of Service: 11/05/23 Interval history: Seen examined at bedside. Short of breath with upper airway secretions. AFib with RVR. Apparently her Cardizem drip was stopped which has been resumed. Physical Exam Vital Signs: Last Vital Signs Temp 97.3 F 11/05/23 08:23 Pulse 167 H 11/05/23 08:50 Resp 18 11/05/23 08:23 BP 156/78 H 11/05/23 08:50 Pulse Ox 93 11/05/23 08:23 O2 Del Method Room Air 11/05/23 08:23 O2 Flow Rate 3 11/03/23 00:00 BMI result Body Mass Index 42.9 GENERAL APPEARANCE: Shortness of breath, wheezing. NECK: no carotid bruit, no jugular venous distention-exam difficult due to respiratory status.. SKIN: no suspicious lesions, warm and dry. HEART: no murmurs, irregular rate and rhythm. Tachycardic. LUNGS: Bilateral expiratory wheezes. ABDOMEN: soft, nontender. EXTREMITIES: no edema. PERIPHERAL PULSES: equal. NEUROLOGIC: No gross deficits, AAO X 3 Objective Labs and Meds 11/04/23 08:20 11/05/23 08:54 Lab results: Laboratory Results - last 24 hr 11/04/23 11/04/23 11/05/23 16:04 20:54 08:26 VBG pH VBG pCO2 VBG pO2 VBG HCO3 VBG O2 Saturation VBG Base Excess Sodium Potassium Chloride Carbon Dioxide Anion Gap BUN Creatinine Estim Creat Clear Calc Estimated GFR POC Glucose 122 H 322 H 457 H* Random Glucose Calcium Beta-Hydroxybutyrate 11/05/23 11/05/23 08:54 08:55 VBG pH 7.59 H VBG pCO2 39 VBG pO2 57 VBG HCO3 37 H VBG O2 Saturation 92.0 VBG Base Excess 14.8 Sodium 136 Potassium 4.0 Chloride 90 L Carbon Dioxide 31 H Anion Gap 19 BUN 39 H Creatinine 1.29 Estim Creat Clear Calc 43.6 Estimated GFR 40 POC Glucose Random Glucose 545 H* Calcium 9.0 Beta-Hydroxybutyrate 0.21 Progress Note: A&P Assessment and plan (1) COPD exacerbation: Status: Acute (2) Paroxysmal A-fib: Status: Acute Plan [age] year female with COPD exacerbation and AFib with RVR. She has significant wheezing and upper airway secretion currently. She will benefit from chest PT and nebs. Heart rate is difficult to control but apparently the Cardizem drip was held overnight. This has been resumed. She was given a digoxin load. Put her on digoxin 125 mcg every other day along with diltiazem drip. Hopefully heart rate improves with till 10 she can be transitioned to oral diltiazem-she was taking 240 mg extended release dose at home. Thank you for allowing me to participate in the care of your patient. Please feel free to contact me if you have any questions. Time Spent With Patient Time: Total time managing care of this patient today ____ minutes. Progress Note: Quality Stroke Does the patient have a stroke diagnosis?: No Procedures Date of Service Date of Service: 11/05/23
[2023-11-05 12:03] LABS: Glucose, Whole Blood 201 mg/dL (60-115)
[2023-11-05] MEDS: levalbuterol HCL 1.25 MG, Ipratropium Bromide 0.5 MG INHALE ×3 (12:11→19:53)
--- NOTE | 2023-11-05 12:44 | HO.PM.IMPN ---
Subjective Subjective Date of Service: 11/05/23 Interval History: for unknown reason diltiazem gtt shut off last night; currently in AF/RVR with rate 140s-160s wheezing + short of breath but not hypoxic no chest pain Review of Systems Review of Systems: Yes all other systems are reviewed and are negative Physical Exam Vital Signs: Vital Signs: Last Vital Signs Temp 97.3 F 11/05/23 08:23 Pulse 67 11/05/23 12:12 Resp 22 H 11/05/23 12:12 BP 156/78 H 11/05/23 12:03 Pulse Ox 93 11/05/23 08:23 O2 Del Method Room Air 11/05/23 08:23 O2 Flow Rate 3 11/03/23 00:00 BMI result Body Mass Index 42.9 Gen: mild respiratory distress HEENT: sclera anicteric, moist mucus membranes Neck: supple Lungs: diminished, extensive expiratory wheezing, prolonged expiratory phase Heart: rapid, irregular, no murmurs Abd: soft, non-tender, non-distended, obese Ext: no edema Skin: warm/well-perfused Neuro: alert and oriented x3, no focal findings Psych: appropriate affect Objective Data Active Medications Acetaminophen (Acetaminophen 325 Mg Tablet) 650 mg PO Q6H PRN PRN Reason: Pain, Mild (Pain Scale 1-3) Last Admin: 11/03/23 09:31 Dose: 650 mg Documented By: FRANCIS Allopurinol (Allopurinol 300 Mg Tablet) 150 mg PO DAILY [facility] Last Admin: 11/05/23 08:40 Dose: 150 mg Documented By: ALEXANDREA Apixaban (Apixaban 5 Mg Tablet) 5 mg PO BID [facility] Last Admin: 11/05/23 08:41 Dose: 5 mg Documented By: ALEXANDREA Levalbuterol HCl 1.25 mg/ (Ipratropium [place] 0.5 mg) 0 mg INHALE RQ4H WHILE AWAKE [facility] Last Admin: 11/05/23 12:11 Dose: 2 dose Documented By: MIKAYLA Cyclobenzaprine HCl (Cyclobenzaprine Hcl 10 Mg Tablet) 10 mg PO TID [facility] Last Admin: 11/05/23 08:40 Dose: 10 mg Documented By: ALEXANDREA Docusate Sodium (Docusate Sodium 100 Mg Capsule) 100 mg PO BID PRN PRN Reason: constipation Famotidine (Famotidine 20 Mg Tablet) 20 mg PO DAILY [facility] Last Admin: 11/05/23 08:41 Dose: 20 mg Documented By: ALEXANDREA Fluticasone/Vilanterol (Fluticasone/Vilanterol 100/25 Blst.W.Dev) 1 puff INHALE RDAILY [facility] Last Admin: 11/05/23 08:05 Dose: Not Given Documented By: MIKAYLA Non-Admin Reason: Patient Condition Contraindication Furosemide (Furosemide 40 Mg Tablet) 40 mg PO BID [facility]; Protocol Last Admin: 11/05/23 08:41 Dose: 40 mg Documented By: ALEXANDREA Gabapentin (Gabapentin 600 Mg Tablet) 600 mg PO TID [facility] Last Admin: 11/05/23 08:40 Dose: 600 mg Documented By: ALEXANDREA Glucose (Glucose Gel 15 Gm Gel..Gram.) 15 gm PO Q15M PRN; Protocol PRN Reason: per Hypoglycemia Standing Ord. Guaifenesin (Guaifenesin La 600 Mg Tab.Er.12h) 1,200 mg PO BID [facility] Last Admin: 11/05/23 08:41 Dose: 1,200 mg Documented By: ALEXANDREA Guaifenesin (Guaifenesin 200 Mg/10 Ml 10 Ml Liquid) 10 ml PO Q6H PRN PRN Reason: Cough Last Admin: 11/05/23 04:23 Dose: 10 ml Documented By: MELLO Azithromycin 500 mg/ Sodium (Chloride) 250 mls @ 125 mls/hr IV Q24H [facility] Last Infusion: 11/05/23 00:37 Dose: Infused Documented By: MELLO Dextrose (D10) 250 mls @ 750 mls/hr IV Q15M PRN; Protocol PRN Reason: per Hypoglycemia Standing Ord. Diltiazem HCl 125 mg/ Sodium (Chloride) 125 mls @ 0 mls/hr IVCONT .Q0M [facility]; Protocol Last Titration: 11/05/23 11:14 Dose: 10 mg/hr, 10 mls/hr Documented By: ALEXANDREA Piperacillin Sod/Tazobactam (Sod 3.375 gm/ Sodium Chloride) 50 mls @ 100 mls/hr IV Q6H [facility] Last Infusion: 11/05/23 11:59 Dose: Infused Documented By: ALEXANDREA Insulin Glargine (Insulin Glargine,Hum.Rec.Anlog 100 Unit/Ml 10 Ml Vial) 48 unit SUBCUT DAILY [facility] Last Admin: 11/05/23 08:56 Dose: 48 unit Documented By: ALEXANDREA Insulin Human Lispro (Insulin Lispro 100 Unit/Ml 3 Ml Vial) 0 unit SUBCUT QIDACHS [facility]; Protocol Last Admin: 11/05/23 08:56 Dose: 24 unit Documented By: ALEXANDREA Levalbuterol HCl (Levalbuterol Hcl 1.25 Mg/3 Ml Vial.Neb) 1.25 mg INHALE Q2H PRN PRN Reason: Shortness of Breath/Wheezing Lidocaine (Lidocaine 4 % Patch Adh..Patch) 1 patch TRANSDERMA DAILY [facility]; Protocol Last Admin: 11/05/23 08:42 Dose: 1 patch Documented By: ALEXANDREA Melatonin (Melatonin 3 Mg Tablet) 6 mg PO BEDTIME PRN PRN Reason: Insomnia Methylprednisolone Sodium Succinate (Methylprednisolone Sod Succ 125 Mg/2 Ml Vial) 60 mg IVPUSH Q8H [facility] Last Admin: 11/05/23 08:41 Dose: 60 mg Documented By: ALEXANDREA Morphine Sulfate (Morphine Sulfate 2 Mg/Ml Cartridge) 2 mg IVPUSH Q3H PRN; Protocol PRN Reason: severe pain Last Admin: 11/05/23 08:42 Dose: 2 mg Documented By: ALEXANDREA Nicotine (Nicotine 14 Mg Patch.Td24) 14 mg TRANSDERMA DAILY [facility] Last Admin: 11/05/23 08:42 Dose: 14 mg Documented By: ALEXANDREA Ondansetron HCl (Ondansetron Hcl 4 Mg/2 Ml Vial) 4 mg IVPUSH Q8H PRN PRN Reason: Nausea and Vomiting Paroxetine HCl (Paroxetine Hcl 20 Mg Tablet) 20 mg PO DAILY@0900 [facility] Last Admin: 11/05/23 08:41 Dose: 20 mg Documented By: ALEXANDREA Polyethylene Glycol (Polyethylene Glycol 3350 17 Gm Powd.Pack) 17 gm PO DAILY [facility] Last Admin: 11/05/23 08:41 Dose: 17 gm Documented By: ALEXANDREA Senna/Docusate Sodium (Sennosides/Docusate Sodium Tablet) 2 tab PO BID [facility] Last Admin: 11/05/23 08:41 Dose: 2 tab Documented By: ALEXANDREA Sodium Chloride (0.9 % Sodium Chloride Flush 3 Ml Syringe) 3 ml IVFLUSH QSHIFT [facility] Last Admin: 11/05/23 08:57 Dose: 3 ml Documented By: ALEXANDREA Labs 11/04/23 08:20 11/05/23 08:54 Labs: Laboratory Results - last 24 hr 11/04/23 11/04/23 11/05/23 16:04 20:54 08:26 VBG pH VBG pCO2 VBG pO2 VBG HCO3 VBG O2 Saturation VBG Base Excess Anion Gap Estim Creat Clear Calc Estimated GFR POC Glucose 122 H 322 H 457 H* Random Glucose Calcium Beta-Hydroxybutyrate 11/05/23 11/05/23 11/05/23 08:54 08:55 11:28 VBG pH 7.59 H VBG pCO2 39 VBG pO2 57 VBG HCO3 37 H VBG O2 Saturation 92.0 VBG Base Excess 14.8 Anion Gap 19 Estim Creat Clear Calc 43.6 Estimated GFR 40 POC Glucose 201 H Random Glucose 545 H* Calcium 9.0 Beta-Hydroxybutyrate 0.21 Microbiology Microbiology Results: Microbiology 10/30/23 19:59 Blood Culture - Final Blood - Venous No growth after 5 days. 11/02/23 13:18 Blood Culture - Preliminary Blood - Venous No growth after 48 hours. 11/02/23 13:18 Blood Culture - Preliminary Blood - Venous No growth after 48 hours. 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 Diamond in 2 wk AF/RVR - diltiazem gtt; loaded with digoxin IV 0.25 mg x2 and will give maintenance 0.125 mg PO q48h - continue apixaban - Cardiology consulted - TTE pending sepsis due to Enterococcus faecalis bacteremia - ID consulted, conitnue IV piperacillin-tazobactam, repeat BCx done 11/01 and negative thus far, TTE pending, likely 14d of amox-clav after neg BCx if no source identified possible pancreatic mass - on CT A/P, noted to have abrupt change in size with atrophy + ductal dilation beyond pancreatic neck; also extra- and intra-hepatic biliary dilation to level of ampulla - GI consulted, will need MRI with/without contrast but need to wait until she is more stable from a cardiopulmonary perspective acute metabolic encephalopathy due to hypoglycemia - resolved gout - continue allopurinol chronic HF with unknown EF - continue maintenance furosemide chronic pain - continue cyclobenzaprine + gabapentin, added lidocaine patch + prn morphine DM2 now with hyperglycemia - increase basal-bolus insulin morbid obesity - diet/exercise counseling VTE ppx - apixaban dispo - TBD In my clinical judgment, the patient requires continued inpatient hospitalization for the following reasons: IV ABX + steroids, bacteremia with unknown source, rate control Total time managing care of this patient today: 50 minutes. Quality Stroke Does the patient have a stroke diagnosis?: No VTE Prior VTE?: No VTE Risk Level:: Medical - moderate - high VTE Device Contraindication: Treatment Not Indicated VTE Drug Contraindication: N/A - Med Ordered
[2023-11-05] MEDS: Digoxin 0.125 MG TABLET PO (13:54)
--- NOTE | 2023-11-05 15:37 | MHC.CM.PN ---
EMR reviewed and per MD rounds, pt is not medically cleared for discharge due to management of bacteremia, pt receiving IV abx.
[2023-11-05 16:42] LABS: Glucose, Whole Blood 56 mg/dL (60-115)
[2023-11-05 17:14] LABS: Glucose, Whole Blood 101 mg/dL (60-115)
[2023-11-05] MEDS: dilTIAZem HCL 125 MG in 0.9 % Sodium Chloride 100 ML 15 MG IVCONT (20:26)
[2023-11-05 21:53] LABS: Glucose, Whole Blood 207 mg/dL (60-115)
--- NOTE | 2023-11-06 02:31 | ECG_ITS ---
Test Reason : CP Blood Pressure : / mmHG Vent. Rate : 096 BPM Atrial Rate : 096 BPM P-R Int : 200 ms QRS Dur : 088 ms QT Int : 348 ms P-R-T Axes : 071 -13 054 degrees QTc Int : 439 ms Artifact in tracing Sinus rhythm with Premature atrial complexes Abnormal ECG When compared to the previous EKG of 05 nov 2023, rhythm change Referred By: Felicitas Pulido Electronically Signed By:TARI SALAZAR
--- NOTE | 2023-11-06 02:45 | PM.EVENT ---
Event Note Date of Service: 11/06/23 Event Note: 2:21 AM - contacted to notify that patient looks to be in sinus rhythm now with HR sustaining between 90 - 100, but can dropped to the high 80s. ECGs done and showing a-fib, rate controlled. Diltiazem drip discontinued and will start diltiazem 30 mg PO now. Time Spent With Patient Time: Total time managing care of this patient today ____ minutes.
[2023-11-06] MEDS: dilTIAZem HCL 30 MG TABLET PO (03:10)
[2023-11-06] MEDS: Piperacillin Sodium/Tazobactam 3.375 GM in 0.9 % Sodium Chloride 50 ML IV ×4 (03:10→23:31)
[2023-11-06] MEDS: Morphine Sulfate 2 MG/ML CARTRIDGE IVPUSH ×2 (03:16→08:46)
[2023-11-06 04:08] VITALS: BP 155/83; PULSE 63; RESP 18; TEMP 36.4; O2SAT 92
[2023-11-06 07:23] LABS: Anion Gap 17 (12-20); Blood Urea Nitrogen 38 mg/dL (9-16); Calcium 9.2 mg/dL (8.4-10.2); Carbon Dioxide 35 mmol/L (22-29); Chloride 93 mmol/L (96-108); Creatinine Clr Calc Pharmacy 57.4; Estimated Glomerular Filt Rate 55; Glucose Random 236 mg/dL (60-115); Magnesium 2.5 mg/dL (1.6-2.6); Potassium 3.5 mmol/L (3.3-5.1); Sodium 141 mmol/L (135-145)
[2023-11-06 07:39] LABS: Glucose, Whole Blood 278 mg/dL (60-115)
[2023-11-06 07:40] LABS: Digoxin 0.8 ng/mL (0.8-2.0)
[2023-11-06 07:56] VITALS: BP 132/72; PULSE 92; RESP 20; TEMP 36; O2SAT 93
[2023-11-06] MEDS: guaiFENesin LA 600 MG TAB.ER.12H 1200 MG PO ×2 (09:07→19:42)
[2023-11-06] MEDS: Sennosides/Docusate Sodium TABLET 2 TAB PO ×2 (09:07→19:43)
[2023-11-06] MEDS: Famotidine 20 MG TABLET PO (09:07)
[2023-11-06] MEDS: Apixaban 5 MG TABLET PO ×2 (09:07→19:43)
[2023-11-06] MEDS: allopurinoL 300 MG TABLET 150 MG PO (09:07)
[2023-11-06] MEDS: Gabapentin 600 MG TABLET PO ×3 (09:07→19:43)
[2023-11-06 09:08] VITALS: PULSE 174
[2023-11-06] MEDS: dilTIAZem HCL 50 MG/10 ML VIAL 20 MG IVPUSH (09:08)
[2023-11-06] MEDS: Cyclobenzaprine HCl 10 MG TABLET PO ×3 (09:08→19:43)
[2023-11-06] MEDS: Furosemide 40 MG TABLET PO ×2 (09:08→19:43)
[2023-11-06] MEDS: PARoxetine HCL 20 MG TABLET PO (09:08)
[2023-11-06] MEDS: Nicotine 14 MG PATCH.TD24 TRANSDERMA (09:08)
[2023-11-06] MEDS: Lidocaine 4 % Patch ADH..PATCH 1 PATCH TRANSDERMA (09:08)
[2023-11-06] MEDS: methylPREDNISolone Sod Succ 125 MG/2 ML VIAL 60 MG IVPUSH ×3 (09:09→23:30)
[2023-11-06] MEDS: Insulin Glargine,Hum.rec.anlog 100 UNIT/ML 10 ML VIAL 36 UNIT SUBCUT (09:09)
[2023-11-06] MEDS: 0.9 % Sodium Chloride Flush 3 ML SYRINGE IVFLUSH ×3 (09:10→19:38)
[2023-11-06] MEDS: Insulin Lispro 100 UNIT/ML 3 ML VIAL SUBCUT ×3 (09:10→23:49)
--- NOTE | 2023-11-06 09:22 | P.PNCA_ITS ---
Subjective Subjective Date of Service: 11/06/23 Interval history: Patient is crying, screaming and seems uncomfortable. She went really answer any questions. Just states that she is having lot of back pain and not very comfortable. Review of Systems Review of Systems Yes all other systems are reviewed and are negative Constitutional: Reports as per HPI and Reports no additional constitutional complaints Eyes: Reports as per HPI and Denies no additional eye complaints Denies system reviewed and no additional complaints, except as documented and Reports as per HPI Cardiovascular: Reports as per HPI, Reports no additional cardiovascular complaints, Denies acrocyanosis, Denies cool extremities, Denies chest pain, Denies leg edema, Denies lightheadedness, Denies palpitations and Denies dyspnea Respiratory: Reports as per HPI, Denies no additional respiratory complaints and Denies dyspnea Gastrointestinal: Reports as per HPI and Denies no additional gastrointestinal complaints Genitourinary: Reports as per HPI Musculoskeletal: Reports no additional musculoskeletal complaints, Reports as per HPI and Reports back pain Skin/Breast: Reports system reviewed and no additional complaints, except as docu Reports system reviewed and no additional complaints, except as documented and Reports as per HPI Psychiatric: Reports no additional psychiatric complaints and Reports as per HPI Endocrine: Reports no additional endocrine complaints, Reports as per HPI and Denies palpitations Hematologic/Lymphatic: Reports no additional hematologic/lymphatic complaints and Reports as per HPI Allergic/Immunologic: Reports no additional allergic/immunologic complaints and Reports as per HPI Physical Exam Vital Signs: Last Vital Signs Temp 96.8 F 11/06/23 07:56 Pulse 174 H 11/06/23 09:08 Resp 20 11/06/23 07:56 BP 132/72 11/06/23 07:56 Pulse Ox 93 11/06/23 07:56 O2 Del Method Room Air 11/06/23 07:56 O2 Flow Rate 3 11/03/23 00:00 BMI result Body Mass Index 42.9 Const General: comfortable, in distress, ill appearing and tired appearing Orientation/consciousness: patient oriented x3 HEENT Other: Unremarkable Head: Yes normal to inspection Neck Neck: Yes normal visual inspection Chest Chest palpation & inspection: normal inspection of the chest Resp Auscultation: wheezes and breath sounds absent Cardio Other: Difficult to auscultate as patient is crying and screaming. GI Palpation (GI): Soft to palpation Back/Spine/Pelvis Other: unremarkable Skin General skin exam: no rashes or lesions noted Neuro General: patient oriented x3 Extrem General: Yes normal to inspection Psych Mental Status: mental status grossly normal Objective Labs and Meds 11/04/23 08:20 11/06/23 06:30 Lab results: Laboratory Results - last 24 hr 11/05/23 11/05/23 11/05/23 08:54 08:55 11:28 VBG pH 7.59 H Sodium 136 Potassium 4.0 Chloride 90 L Carbon Dioxide 31 H Anion Gap 19 BUN 39 H Creatinine 1.29 Estim Creat Clear Calc 43.6 Estimated GFR 40 POC Glucose 201 H Random Glucose 545 H* Calcium 9.0 Magnesium Digoxin 11/05/23 11/05/23 11/05/23 16:38 17:10 21:45 VBG pH Sodium Potassium Chloride Carbon Dioxide Anion Gap BUN Creatinine Estim Creat Clear Calc Estimated GFR POC Glucose 56 L* 101 207 H Random Glucose Calcium Magnesium Digoxin 11/06/23 11/06/23 06:30 07:20 VBG pH Sodium 141 Potassium 3.5 Chloride 93 L Carbon Dioxide 35 H Anion Gap 17 BUN 38 H Creatinine 0.98 Estim Creat Clear Calc 57.4 Estimated GFR 55 POC Glucose 278 H Random Glucose 236 H Calcium 9.2 Magnesium 2.5 Digoxin 0.8 Progress Note: A&P Assessment and plan (1) Atrial fibrillation with rapid ventricular response: Status: Acute (2) COPD exacerbation: Status: Acute (3) Chronic back pain: Status: Acute Plan On review of telemetry, she does seem to break into sinus rhythm intermittently but then goes into a rapid rhythm which could be atrial tachycardia or flutter- fibrillation. In the EKG from this a.m., lot of artifact. Underlying rhythm is sinus with some PACs. Echocardiogram with LVEF of 60-65%. No obvious valvular findings but limited evaluation. Essentially, COPD exacerbation/respiratory failure leading to atrial fibrillation rapid rate. Also worse because of back pain. While she is being treated for the above, it will be difficult to manage her atrial fibrillation and there is a high potential to go rapid. Hence may keep on Cardizem drip for the time being. Also continue digoxin. Continue anticoagulation. As respiratory status improves hopefully the atrial fibrillation will also settle down. Discussed with Dr. Pulido. Time Spent With Patient Time: Total time managing care of this patient today ____ minutes. Progress Note: Quality Stroke Does the patient have a stroke diagnosis?: No Procedures Date of Service Date of Service: 11/06/23
[2023-11-06 10:27] VITALS: PULSE 146
[2023-11-06] MEDS: dilTIAZem HCL 125 MG in 0.9 % Sodium Chloride 100 ML IVCONT (10:27)
[2023-11-06 11:42] LABS: Glucose, Whole Blood 288 mg/dL (60-115)
--- NOTE | 2023-11-06 11:42 | HO.PM.IMPN ---
Subjective Subjective Date of Service: 11/06/23 Interval History: wheezing, dyspneic in AF rate to 170s [overnight was in sinus tachycardia with freq PACs and diltiazem gtt shut off and started on PO diltiazem] c/o back pain no fever Review of Systems Review of Systems: Yes all other systems are reviewed and are negative Physical Exam Vital Signs: Vital Signs: Last Vital Signs Temp 96.8 F 11/06/23 07:56 Pulse 146 H 11/06/23 10:27 Resp 20 11/06/23 07:56 BP 132/72 11/06/23 07:56 Pulse Ox 93 11/06/23 07:56 O2 Del Method Room Air 11/06/23 07:56 O2 Flow Rate 3 11/03/23 00:00 BMI result Body Mass Index 42.9 Gen: mod respiratory distress HEENT: sclera anicteric, moist mucus membranes Neck: supple Lungs: diminished, extensive expiratory wheezing, prolonged expiratory phase Heart: rapid, irregular, no murmurs Abd: soft, non-tender, non-distended, obese Ext: no edema Skin: warm/well-perfused Neuro: alert and oriented x3, no focal findings Psych: anxious Objective Data Active Medications Acetaminophen (Acetaminophen 325 Mg Tablet) 650 mg PO Q6H PRN PRN Reason: Pain, Mild (Pain Scale 1-3) Last Admin: 11/03/23 09:31 Dose: 650 mg Documented By: FRANCIS Allopurinol (Allopurinol 300 Mg Tablet) 150 mg PO DAILY [facility] Last Admin: 11/06/23 09:07 Dose: 150 mg Documented By: ALEXANDREA Apixaban (Apixaban 5 Mg Tablet) 5 mg PO BID [facility] Last Admin: 11/06/23 09:07 Dose: 5 mg Documented By: ALEXANDREA Levalbuterol HCl 1.25 mg/ (Ipratropium [place] 0.5 mg) 0 mg INHALE RQ4H WHILE AWAKE [facility] Last Admin: 11/06/23 08:32 Dose: Not Given Documented By: MIKAYLA Non-Admin Reason: Elevated Heart Rate Cyclobenzaprine HCl (Cyclobenzaprine Hcl 10 Mg Tablet) 10 mg PO TID [facility] Last Admin: 11/06/23 09:08 Dose: 10 mg Documented By: ALEXANDREA Digoxin (Digoxin 0.125 Mg Tablet) 0.125 mg PO Q48H [facility] Last Admin: 11/05/23 13:54 Dose: 0.125 mg Documented By: ALEXANRDEA Docusate Sodium (Docusate Sodium 100 Mg Capsule) 100 mg PO BID PRN PRN Reason: constipation Famotidine (Famotidine 20 Mg Tablet) 20 mg PO DAILY [facility] Last Admin: 11/06/23 09:07 Dose: 20 mg Documented By: ALEXANDREA Fluticasone/Vilanterol (Fluticasone/Vilanterol 100/25 Blst.W.Dev) 1 puff INHALE RDAILY [facility] Last Admin: 11/06/23 11:22 Dose: Not Given Documented By: MIKAYLA Non-Admin Reason: Elevated Heart Rate Furosemide (Furosemide 40 Mg Tablet) 40 mg PO BID [facility]; Protocol Last Admin: 11/06/23 09:08 Dose: 40 mg Documented By: ALEXANDREA Gabapentin (Gabapentin 600 Mg Tablet) 600 mg PO TID [facility] Last Admin: 11/06/23 09:07 Dose: 600 mg Documented By: ALEXANDREA Glucose (Glucose Gel 15 Gm Gel..Gram.) 15 gm PO Q15M PRN; Protocol PRN Reason: per Hypoglycemia Standing Ord. Guaifenesin (Guaifenesin La 600 Mg Tab.Er.12h) 1,200 mg PO BID [facility] Last Admin: 11/06/23 09:07 Dose: 1,200 mg Documented By: ALEXANDREA Guaifenesin (Guaifenesin 200 Mg/10 Ml 10 Ml Liquid) 10 ml PO Q6H PRN PRN Reason: Cough Last Admin: 11/05/23 04:23 Dose: 10 ml Documented By: MELLO Dextrose (D10) 250 mls @ 750 mls/hr IV Q15M PRN; Protocol PRN Reason: per Hypoglycemia Standing Ord. Diltiazem HCl 125 mg/ Sodium (Chloride) 125 mls @ 0 mls/hr IVCONT .Q0M [facility]; Protocol Last Titration: 11/06/23 11:08 Dose: 10 mg/hr, 10 mls/hr Documented By: ALEXANDERA Piperacillin Sod/Tazobactam (Sod 3.375 gm/ Sodium Chloride) 50 mls @ 100 mls/hr IV Q6H [facility] Last Admin: 11/06/23 10:26 Dose: 100 mls/hr Documented By: ALEXANDREA Insulin Glargine (Insulin Glargine,Hum.Rec.Anlog 100 Unit/Ml 10 Ml Vial) 36 unit SUBCUT DAILY [facility] Last Admin: 11/06/23 09:09 Dose: 36 unit Documented By: ALEXANDREA Insulin Human Lispro (Insulin Lispro 100 Unit/Ml 3 Ml Vial) 0 unit SUBCUT QIDACHS [facility]; Protocol Last Admin: 11/06/23 09:10 Dose: 10 unit Documented By: ALEXANDREA Levalbuterol HCl (Levalbuterol Hcl 1.25 Mg/3 Ml Vial.Neb) 1.25 mg INHALE Q2H PRN PRN Reason: Shortness of Breath/Wheezing Lidocaine (Lidocaine 4 % Patch Adh..Patch) 1 patch TRANSDERMA DAILY [facility]; Protocol Last Admin: 11/06/23 09:08 Dose: 1 patch Documented By: ALEXANDREA Melatonin (Melatonin 3 Mg Tablet) 6 mg PO BEDTIME PRN PRN Reason: Insomnia Methylprednisolone Sodium Succinate (Methylprednisolone Sod Succ 125 Mg/2 Ml Vial) 60 mg IVPUSH Q8H [facility] Last Admin: 11/06/23 09:09 Dose: 60 mg Documented By: ALEXANDREA Morphine Sulfate (Morphine Sulfate 2 Mg/Ml Cartridge) 3 mg IVPUSH Q3H PRN; Protocol PRN Reason: severe pain Nicotine (Nicotine 14 Mg Patch.Td24) 14 mg TRANSDERMA DAILY [facility] Last Admin: 11/06/23 09:08 Dose: 14 mg Documented By: ALEXANDREA Ondansetron HCl (Ondansetron Hcl 4 Mg/2 Ml Vial) 4 mg IVPUSH Q8H PRN PRN Reason: Nausea and Vomiting Paroxetine HCl (Paroxetine Hcl 20 Mg Tablet) 20 mg PO DAILY@0900 [facility] Last Admin: 11/06/23 09:08 Dose: 20 mg Documented By: ALEXANDREA Polyethylene Glycol (Polyethylene Glycol 3350 17 Gm Powd.Pack) 17 gm PO DAILY [facility] Last Admin: 11/06/23 09:11 Dose: Not Given Documented By: ALEXANDREA Non-Admin Reason: Patient Refused Senna/Docusate Sodium (Sennosides/Docusate Sodium Tablet) 2 tab PO BID [facility] Last Admin: 11/06/23 09:07 Dose: 2 tab Documented By: ALEXANDREA Sodium Chloride (0.9 % Sodium Chloride Flush 3 Ml Syringe) 3 ml IVFLUSH QSHIFT [facility] Last Admin: 11/06/23 09:10 Dose: 3 ml Documented By: ALEXANDREA Labs 11/04/23 08:20 11/06/23 06:30 Labs: Laboratory Results - last 24 hr 11/05/23 11/05/23 11/05/23 11:28 16:38 17:10 Anion Gap Estim Creat Clear Calc Estimated GFR POC Glucose 201 H 56 L* 101 Random Glucose Calcium Magnesium Digoxin 11/05/23 11/06/23 11/06/23 21:45 06:30 07:20 Anion Gap 17 Estim Creat Clear Calc 57.4 Estimated GFR 55 POC Glucose 207 H 278 H Random Glucose 236 H Calcium 9.2 Magnesium 2.5 Digoxin 0.8 Assessment and Plan (1) COPD exacerbation: Status: Acute Plan d7 78yo F with pAF on apixaban, COPD not on hO2, gout, HF with unknown EF, gout, DM2 presented with AMS, admitted for hypoxia due to CAP + COPD acute hypoxic resp failure and sepsis due to CAP + COPD exac - IV methylprednisolone 60 mg q8h, scheduled/prn nebs - weaned off O2 - IV vanco 10/30-10/31, IV ceftriaxone 10/31-11/01, IV piperacillin-tazobactam 11/01-, IV azithro 10/30-11/04 - continue Breo, guaifenesin - outpt f/u with employee relations manager Dr Diamond in 2 wk; inpt Pulm consult AF/RVR - diltiazem IV bolus then gtt; loaded with digoxin IV 0.25 mg x2 and now on maintenance 0.125 mg PO q48h - continue apixaban - Cardiology consulted - TTE 11/04: - The visually estimated ejection fraction is between 60-65%. - Normal right ventricular cavity size and systolic function. - Limited assessment of the valves. No obvious vegetation. sepsis due to Enterococcus faecalis bacteremia - ID consulted, conitnue IV piperacillin-tazobactam, repeat BCx from 11/01 negative; TTE with no vegetation, likely 14d of amox-clav after neg BCx if no source identified possible pancreatic mass - on CT A/P, noted to have abrupt change in size with atrophy + ductal dilation beyond pancreatic neck; also extra- and intra-hepatic biliary dilation to level of ampulla - GI consulted, will need MRI with/without contrast but need to wait until she is more stable from a cardiopulmonary perspective acute metabolic encephalopathy due to hypoglycemia - resolved gout - continue allopurinol chronic HF with unknown EF - continue maintenance furosemide chronic pain - continue cyclobenzaprine + gabapentin, added lidocaine patch + prn morphine DM2 - basal-bolus insulin morbid obesity - diet/exercise counseling VTE ppx - apixaban dispo - eventuallyh home with VNA In my clinical judgment, the patient requires continued inpatient hospitalization for the following reasons: IV ABX + steroids, bacteremia with unknown source, rate control, resp distress Total time managing care of this patient today: 50 minutes. Quality Stroke Does the patient have a stroke diagnosis?: No VTE Prior VTE?: No VTE Risk Level:: Medical - moderate - high VTE Device Contraindication: Treatment Not Indicated VTE Drug Contraindication: N/A - Med Ordered
[2023-11-06] MEDS: Morphine Sulfate 2 MG/ML CARTRIDGE 3 MG IVPUSH ×4 (12:16→23:36)
[2023-11-06] MEDS: Amiodarone HCL 200 MG TABLET 400 MG PO ×2 (13:02→19:43)
--- NOTE | 2023-11-06 15:51 | P.CONPL_ITS ---
History of Present Illness History of Present Illness Consult date: 11/06/23 Chief complaint: COPD, Afib Narrative: 78-year-old lady, 40+ pack-year smoker, with underlying history ?COPD (though most recent spirometry shows no fixed obstruction), AFib on anticoagulation, ?CHF, diabetes mellitus, obesity with hypoventilation syndrome admitted on 11/07/2023 with alteration of mental status with hypoglycemia and dyspnea. She has been treated empirically for exacerbation of underlying COPD and empiric antibiotics for possible pneumonia. Hospital course complicated by AFib with RVR and ongoing hypoxia requiring supplemental oxygen to maintain normal oximetry. Review of Systems 2 Cardiovascular: Cardiovascular: Reports pedal edema, Reports dyspnea and Reports dyspnea on exertion Respiratory: Respiratory: Denies cough, Denies excessive phlegm production, Reports dyspnea, Reports dyspnea on exertion and Reports wheezing Allergic/Immunologic: Allergic/Immunologic: Reports wheezing PMFSH Past Medical History Medical History CHF (congestive heart failure) A-fib Diabetes Cough Hypoventilation syndrome Skin cancer of trunk Skin cancer of face COPD (chronic obstructive pulmonary disease) Failed back syndrome Family History Family History Father No problems noted. Mother No problems noted. Daughter Opiate dependence Substance use disorder Family/Other FH: mental illness Mental health disorder Family history: reviewed and not pertinent Surgical History Surgical History History of knee surgery History of shoulder surgery History of ankle surgery History of hip surgery Social History Social History Household Members: None Household Members Other:: daughter Housing: Apartment Do you presently have visiting nurse or other home services: Yes Unable to assess alcohol history related to: Unknown Alcohol intake: never Patient Tobacco Use Status: Former Tobacco user Quit Date: more than 10 years ago Tobacco use type: Cigarette e-Cigarette/Vaping Use: Never Used service: No Current occupational status: retired and disabled Cognitive needs: Yes Hearing needs: No Vision needs: Yes Meds Allergies Allergy/AdvReac Type Severity Reaction Status Date / Time aspirin [Aspirin] Allergy Mild NAUSEA Verified 10/30/23 14:44 codeine [Codeine] Allergy Mild VOMITING Verified 10/30/23 14:44 Active Medications: Current Medications Acetaminophen (Acetaminophen 325 Mg Tablet) 650 mg PO Q6H PRN PRN Reason: Pain, Mild (Pain Scale 1-3) Last Admin: 11/03/23 09:31 Dose: 650 mg Allopurinol (Allopurinol 300 Mg Tablet) 150 mg PO DAILY [facility] Last Admin: 11/06/23 09:07 Dose: 150 mg Amiodarone HCl (Amiodarone Hcl 200 Mg Tablet) 400 mg PO BID [facility] Last Admin: 11/06/23 13:02 Dose: 400 mg Apixaban (Apixaban 5 Mg Tablet) 5 mg PO BID [facility] Last Admin: 11/06/23 09:07 Dose: 5 mg Levalbuterol HCl 1.25 mg/ (Ipratropium [place] 0.5 mg) 0 mg INHALE RQ4H WHILE AWAKE [facility] Last Admin: 11/06/23 15:43 Dose: Not Given Cyclobenzaprine HCl (Cyclobenzaprine Hcl 10 Mg Tablet) 10 mg PO TID [facility] Last Admin: 11/06/23 15:18 Dose: 10 mg Digoxin (Digoxin 0.125 Mg Tablet) 0.125 mg PO Q48H [facility] Last Admin: 11/05/23 13:54 Dose: 0.125 mg Docusate Sodium (Docusate Sodium 100 Mg Capsule) 100 mg PO BID PRN PRN Reason: constipation Famotidine (Famotidine 20 Mg Tablet) 10 mg PO DAILY [facility] Fluticasone/Vilanterol (Fluticasone/Vilanterol 100/25 Blst.W.Dev) 1 puff INHALE RDAILY [facility] Last Admin: 11/06/23 11:22 Dose: Not Given Furosemide (Furosemide 40 Mg Tablet) 40 mg PO BID [facility]; Protocol Last Admin: 11/06/23 09:08 Dose: 40 mg Gabapentin (Gabapentin 600 Mg Tablet) 600 mg PO TID [facility] Last Admin: 11/06/23 15:18 Dose: 600 mg Glucose (Glucose Gel 15 Gm Gel..Gram.) 15 gm PO Q15M PRN; Protocol PRN Reason: per Hypoglycemia Standing Ord. Guaifenesin (Guaifenesin La 600 Mg Tab.Er.12h) 1,200 mg PO BID [facility] Last Admin: 11/06/23 09:07 Dose: 1,200 mg Guaifenesin (Guaifenesin 200 Mg/10 Ml 10 Ml Liquid) 10 ml PO Q6H PRN PRN Reason: Cough Last Admin: 11/05/23 04:23 Dose: 10 ml Dextrose (D10) 250 mls @ 750 mls/hr IV Q15M PRN; Protocol PRN Reason: per Hypoglycemia Standing Ord. Diltiazem HCl 125 mg/ Sodium (Chloride) 125 mls @ 0 mls/hr IVCONT .Q0M [facility]; Protocol Last Titration: 11/06/23 12:19 Dose: 15 mg/hr, 15 mls/hr Piperacillin Sod/Tazobactam (Sod 3.375 gm/ Sodium Chloride) 50 mls @ 100 mls/hr IV Q6H [facility] Last Infusion: 11/06/23 11:47 Dose: Infused Insulin Glargine (Insulin Glargine,Hum.Rec.Anlog 100 Unit/Ml 10 Ml Vial) 36 unit SUBCUT DAILY [facility] Last Admin: 11/06/23 09:09 Dose: 36 unit Insulin Human Lispro (Insulin Lispro 100 Unit/Ml 3 Ml Vial) 0 unit SUBCUT QIDACHS [facility]; Protocol Last Admin: 11/06/23 12:16 Dose: 10 unit Levalbuterol HCl (Levalbuterol Hcl 1.25 Mg/3 Ml Vial.Neb) 1.25 mg INHALE Q2H PRN PRN Reason: Shortness of Breath/Wheezing Lidocaine (Lidocaine 4 % Patch Adh..Patch) 1 patch TRANSDERMA DAILY [facility]; Protocol Last Admin: 11/06/23 09:08 Dose: 1 patch Melatonin (Melatonin 3 Mg Tablet) 6 mg PO BEDTIME PRN PRN Reason: Insomnia Methylprednisolone Sodium Succinate (Methylprednisolone Sod Succ 125 Mg/2 Ml Vial) 60 mg IVPUSH Q8H [facility] Last Admin: 11/06/23 15:25 Dose: 60 mg Morphine Sulfate (Morphine Sulfate 2 Mg/Ml Cartridge) 3 mg IVPUSH Q3H PRN; Protocol PRN Reason: severe pain Last Admin: 11/06/23 15:19 Dose: 3 mg Nicotine (Nicotine 14 Mg Patch.Td24) 14 mg TRANSDERMA DAILY [facility] Last Admin: 11/06/23 09:08 Dose: 14 mg Ondansetron HCl (Ondansetron Hcl 4 Mg/2 Ml Vial) 4 mg IVPUSH Q8H PRN PRN Reason: Nausea and Vomiting Paroxetine HCl (Paroxetine Hcl 20 Mg Tablet) 20 mg PO DAILY@0900 [facility] Last Admin: 11/06/23 09:08 Dose: 20 mg Polyethylene Glycol (Polyethylene Glycol 3350 17 Gm Powd.Pack) 17 gm PO DAILY [facility] Last Admin: 11/06/23 09:11 Dose: Not Given Senna/Docusate Sodium (Sennosides/Docusate Sodium Tablet) 2 tab PO BID [facility] Last Admin: 11/06/23 09:07 Dose: 2 tab Sodium Chloride (0.9 % Sodium Chloride Flush 3 Ml Syringe) 3 ml IVFLUSH QSHIFT [facility] Last Admin: 11/06/23 09:10 Dose: 3 ml Home Medications ?Medication ?Instructions ?Recorded ?Confirmed ?Last Taken ?Type nicotine 14 mg/24 hr daily 1 patch topical DAILY 10/30/23 10/30/23 Unknown History transdermal patch Physical Exam 2 Vital Signs: Vital Signs: Last Vital Signs Temp 96.8 F 11/06/23 07:56 Pulse 146 H 11/06/23 10:27 Resp 20 11/06/23 07:56 BP 132/72 11/06/23 07:56 Pulse Ox 93 11/06/23 07:56 O2 Del Method Room Air 11/06/23 07:56 O2 Flow Rate 3 11/03/23 00:00 BMI result Body Mass Index 42.9 Const: General: no acute distress, alert and awake Nutritional Appearance: obese Eyes: Sclerae: sclerae normal EOM: EOMs intact bilaterally Neck: Neck: Yes no lymphadenopathy, Yes trachea midline and Yes supple Resp: Effort & Inspection: normal respiratory effort and no respiratory distress Auscultation: wheezes (Mild expiratory bilateral) Cardio: Rate: tachycardic Rhythm: abnormal rhythm irregularly irregular Heart sounds: no gallops, no murmurs and no rubs GI: Palpation (GI): Soft to palpation and Other GI palpation findings present ( Nontender) Auscultation: normal bowel sounds Extrem: General: No clubbing, No cyanosis and Yes edema (Trace bilateral) Results Laboratory Findings 11/04/23 08:20 11/06/23 06:30 Abnormal lab findings: Abnormal Labs 10/30/23 10/30/23 10/30/23 14:40 16:21 21:46 WBC 23.3 H RBC 4.12 L Hgb Hct MCV 102.4 H Immature Gran % (Auto) 0.9 H Neut % (Auto) 90.6 H Lymph % (Auto) 4.4 L [place] % (Auto) Lymph # (Auto) 1.0 L Abs Immat Gran (auto) 0.21 H Absolute Neuts (auto) 21.1 H VBG pH VBG HCO3 Chloride Carbon Dioxide 31 H BUN 29 H POC Glucose 153 H 223 H Random Glucose Total Protein TSH 10/31/23 10/31/23 10/31/23 04:03 07:16 12:31 WBC 11.4 H RBC 3.76 L Hgb Hct MCV 100.3 H Immature Gran % (Auto) Neut % (Auto) 95.2 H Lymph % (Auto) 4.0 L [place] % (Auto) 0.4 L Lymph # (Auto) 0.5 L Abs Immat Gran (auto) 0.05 H Absolute Neuts (auto) 10.8 H VBG pH VBG HCO3 Chloride Carbon Dioxide BUN 27 H POC Glucose 256 H 319 H Random Glucose 263 H Total Protein TSH 10/31/23 10/31/23 11/01/23 18:33 20:29 07:27 WBC RBC Hgb Hct MCV Immature Gran % (Auto) Neut % (Auto) Lymph % (Auto) [place] % (Auto) Lymph # (Auto) Abs Immat Gran (auto) Absolute Neuts (auto) VBG pH VBG HCO3 Chloride Carbon Dioxide BUN POC Glucose 277 H 355 H* 305 H Random Glucose Total Protein TSH 11/01/23 11/01/23 11/01/23 11:24 16:02 20:18 WBC RBC Hgb Hct MCV Immature Gran % (Auto) Neut % (Auto) Lymph % (Auto) [place] % (Auto) Lymph # (Auto) Abs Immat Gran (auto) Absolute Neuts (auto) VBG pH VBG HCO3 Chloride Carbon Dioxide BUN POC Glucose 419 H* 266 H 337 H Random Glucose Total Protein TSH 11/02/23 11/02/23 11/02/23 07:35 11:08 16:11 WBC RBC Hgb Hct MCV Immature Gran % (Auto) Neut % (Auto) Lymph % (Auto) [place] % (Auto) Lymph # (Auto) Abs Immat Gran (auto) Absolute Neuts (auto) VBG pH VBG HCO3 Chloride Carbon Dioxide BUN POC Glucose 398 H* 379 H* 230 H Random Glucose Total Protein TSH 11/02/23 11/03/23 11/03/23 19:37 05:42 07:01 WBC RBC Hgb Hct MCV Immature Gran % (Auto) Neut % (Auto) Lymph % (Auto) [place] % (Auto) Lymph # (Auto) Abs Immat Gran (auto) Absolute Neuts (auto) VBG pH VBG HCO3 Chloride 93 L Carbon Dioxide 32 H BUN 36 H POC Glucose 272 H 335 H Random Glucose 303 H Total Protein 6.3 L TSH 0.08 L 11/03/23 11/03/23 11/03/23 11:04 16:45 20:37 WBC RBC Hgb Hct MCV Immature Gran % (Auto) Neut % (Auto) Lymph % (Auto) [place] % (Auto) Lymph # (Auto) Abs Immat Gran (auto) Absolute Neuts (auto) VBG pH VBG HCO3 Chloride Carbon Dioxide BUN POC Glucose 304 H 136 H 281 H Random Glucose Total Protein TSH 11/04/23 11/04/23 11/04/23 07:21 08:20 08:27 WBC 11.7 H RBC 3.68 L Hgb 11.8 L Hct 36.2 L MCV 98.4 H Immature Gran % (Auto) Neut % (Auto) Lymph % (Auto) [place] % (Auto) Lymph # (Auto) Abs Immat Gran (auto) Absolute Neuts (auto) VBG pH 7.56 H VBG HCO3 37 H Chloride 92 L Carbon Dioxide 32 H BUN 37 H POC Glucose 278 H Random Glucose 372 H* Total Protein TSH 11/04/23 11/04/23 11/04/23 11:22 16:04 20:54 WBC RBC Hgb Hct MCV Immature Gran % (Auto) Neut % (Auto) Lymph % (Auto) [place] % (Auto) Lymph # (Auto) Abs Immat Gran (auto) Absolute Neuts (auto) VBG pH VBG HCO3 Chloride Carbon Dioxide BUN POC Glucose 308 H 122 H 322 H Random Glucose Total Protein TSH 11/05/23 11/05/23 11/05/23 08:26 08:54 08:55 WBC RBC Hgb Hct MCV Immature Gran % (Auto) Neut % (Auto) Lymph % (Auto) [place] % (Auto) Lymph # (Auto) Abs Immat Gran (auto) Absolute Neuts (auto) VBG pH 7.59 H VBG HCO3 37 H Chloride 90 L Carbon Dioxide 31 H BUN 39 H POC Glucose 457 H* Random Glucose 545 H* Total Protein TSH 11/05/23 11/05/23 11/05/23 11:28 16:38 21:45 WBC RBC Hgb Hct MCV Immature Gran % (Auto) Neut % (Auto) Lymph % (Auto) [place] % (Auto) Lymph # (Auto) Abs Immat Gran (auto) Absolute Neuts (auto) VBG pH VBG HCO3 Chloride Carbon Dioxide BUN POC Glucose 201 H 56 L* 207 H Random Glucose Total Protein TSH 11/06/23 11/06/23 11/06/23 06:30 07:20 11:35 WBC RBC Hgb Hct MCV Immature Gran % (Auto) Neut % (Auto) Lymph % (Auto) [place] % (Auto) Lymph # (Auto) Abs Immat Gran (auto) Absolute Neuts (auto) VBG pH VBG HCO3 Chloride 93 L Carbon Dioxide 35 H BUN 38 H POC Glucose 278 H 288 H Random Glucose 236 H Total Protein TSH Microbiology: Microbiology 10/30/23 19:59 Blood - Venous Blood Culture - Final No growth after 5 days. 11/02/23 13:18 Blood - Venous Blood Culture - Preliminary No growth after 48 hours. 11/02/23 13:18 Blood - Venous Blood Culture - Preliminary No growth after 48 hours. 10/30/23 19:11 Blood - Venous Blood Culture - Final Enterococcus faecalis Assessment and Plan (1) Acute respiratory failure with hypoxia: Status: Acute (2) Atrial fibrillation with rapid ventricular response: Status: Acute Plan Impression: 78-year-old lady admitted with hypoxia with unclear etiology treated for empiric COPD exacerbation and community-acquired pneumonia with hospital course complicated by AFib with RVR. CT chest shows no significant emphysema, but an elevated right hemidiaphragm with enlarged liver and right lower lobe atelectasis. No evidence of lobar pneumonia. No evidence of acute COPD exacerbation at this time. Recommendations: Consider tapering off systemic glucocorticoids. Consider monitoring off systemic antibiotics. Appears to be hyperoxygenated, will obtain ABG to titrate O2 as appropriate. Consider rate/rhythm control of underlying AFib as contributing factor for dyspnea and hypoxia. Procedures Date of Service Date of Service: 11/06/23
[2023-11-06 16:00] VITALS: BP 123/70; PULSE 84; RESP 22; TEMP 36.5; O2SAT 93
[2023-11-06 16:11] LABS: Glucose, Whole Blood 54 mg/dL (60-115)
[2023-11-06 16:36] LABS: D Dimer High Sensitivity 276 NG/ML
[2023-11-06 16:47] LABS: Glucose, Whole Blood 107 mg/dL (60-115)
[2023-11-06 16:58] LABS: ABG Base Excess 14.7 mmol/L; ABG HCO3 39 mmol/L (22-26); ABG pCO2 45 mmHg (32-45); ABG pH 7.54 (7.35-7.45); ABG pO2 67 mmHg (83-108)
[2023-11-06 17:04] VITALS: O2SAT 93
[2023-11-06] MEDS: dilTIAZem HCL 125 MG in 0.9 % Sodium Chloride 100 ML 15 MG IVCONT (19:44)
[2023-11-06 21:23] LABS: ABG Refer to POC result
[2023-11-06 21:32] LABS: Glucose, Whole Blood 297 mg/dL (60-115)
[2023-11-06 23:45] LABS: Glucose, Whole Blood 255 mg/dL (60-115)
[2023-11-07] VITALS (8 sets, daily range): BP systolic 140–163; BP diastolic 61–92; PULSE 75–100; RESP 16–22; TEMP 36–37.1; O2SAT 90–95
[2023-11-07] MEDS: Piperacillin Sodium/Tazobactam 3.375 GM in 0.9 % Sodium Chloride 50 ML IV ×2 (03:32→10:18)
[2023-11-07] MEDS: dilTIAZem HCL 125 MG in 0.9 % Sodium Chloride 100 ML 15 MG IVCONT ×3 (04:01→20:14)
[2023-11-07] MEDS: Morphine Sulfate 2 MG/ML CARTRIDGE 3 MG IVPUSH ×4 (04:08→21:02)
[2023-11-07] MEDS: methylPREDNISolone Sod Succ 125 MG/2 ML VIAL 60 MG IVPUSH (05:50)
[2023-11-07 06:32] LABS: VBG Base Excess 16.3 mmol/L; VBG HCO3 41 mmol/L (22-26); VBG pCO2 47 mmHg; VBG pH 7.54 (7.32-7.43); VBG pO2 46 mmHg
[2023-11-07 06:32] LABS: Venous Blood Gas Refer to POC result
[2023-11-07 06:58] LABS: Anion Gap 19 (12-20); Blood Urea Nitrogen 49 mg/dL (9-16); Calcium 9.3 mg/dL (8.4-10.2); Carbon Dioxide 36 mmol/L (22-29); Chloride 91 mmol/L (96-108); Creatinine Clr Calc Pharmacy 43.9; Estimated Glomerular Filt Rate 40; Glucose Random 159 mg/dL (60-115); Potassium 3.5 mmol/L (3.3-5.1); Sodium 142 mmol/L (135-145)
[2023-11-07 08:07] LABS: Glucose, Whole Blood 157 mg/dL (60-115)
[2023-11-07] MEDS: Cyclobenzaprine HCl 10 MG TABLET PO ×3 (08:11→20:15)
[2023-11-07] MEDS: polyethylene glycoL 3350 17 GM POWD.PACK PO (08:11)
[2023-11-07] MEDS: allopurinoL 300 MG TABLET 150 MG PO (08:12)
[2023-11-07] MEDS: Gabapentin 600 MG TABLET PO ×3 (08:13→20:15)
[2023-11-07] MEDS: Sennosides/Docusate Sodium TABLET 2 TAB PO ×2 (08:13→20:15)
[2023-11-07] MEDS: guaiFENesin LA 600 MG TAB.ER.12H 1200 MG PO ×2 (08:13→20:15)
[2023-11-07] MEDS: Amiodarone HCL 200 MG TABLET 400 MG PO ×2 (08:13→20:15)
[2023-11-07] MEDS: Apixaban 5 MG TABLET PO ×2 (08:13→20:15)
[2023-11-07] MEDS: Lidocaine 4 % Patch ADH..PATCH 1 PATCH TRANSDERMA (08:13)
[2023-11-07] MEDS: PARoxetine HCL 20 MG TABLET PO (08:14)
[2023-11-07] MEDS: Famotidine 20 MG TABLET 10 MG PO (08:14)
[2023-11-07] MEDS: Nicotine 14 MG PATCH.TD24 TRANSDERMA (08:14)
[2023-11-07] MEDS: Furosemide 40 MG TABLET PO ×2 (08:14→20:15)
[2023-11-07] MEDS: Insulin Lispro 100 UNIT/ML 3 ML VIAL SUBCUT ×4 (08:18→21:06)
[2023-11-07] MEDS: Insulin Glargine,Hum.rec.anlog 100 UNIT/ML 10 ML VIAL 30 UNIT SUBCUT (08:19)
[2023-11-07] MEDS: Fluticasone/Vilanterol 100/25 BLST.W.DEV 1 PUFF INHALE (08:25)
--- NOTE | 2023-11-07 10:24 | PM.PNCARD ---
Subjective Subjective Date of Service: 11/07/23 Interval history: Patient seems a bit better today. She has not as uncomfortable as she was today. She states that breathing is also better. Review of Systems Review of Systems Yes all other systems are reviewed and are negative Constitutional: Reports as per HPI and Reports no additional constitutional complaints Eyes: Reports as per HPI and Denies no additional eye complaints Denies system reviewed and no additional complaints, except as documented and Reports as per HPI Cardiovascular: Reports as per HPI, Reports no additional cardiovascular complaints, Denies acrocyanosis, Denies cool extremities, Denies chest pain, Denies leg edema, Denies lightheadedness, Denies palpitations and Reports dyspnea Respiratory: Reports as per HPI, Denies no additional respiratory complaints and Reports dyspnea Gastrointestinal: Reports as per HPI and Denies no additional gastrointestinal complaints Genitourinary: Reports as per HPI Musculoskeletal: Reports no additional musculoskeletal complaints and Reports as per HPI Skin/Breast: Reports system reviewed and no additional complaints, except as docu Reports system reviewed and no additional complaints, except as documented and Reports as per HPI Psychiatric: Reports no additional psychiatric complaints and Reports as per HPI Endocrine: Reports no additional endocrine complaints, Reports as per HPI and Denies palpitations Hematologic/Lymphatic: Reports no additional hematologic/lymphatic complaints and Reports as per HPI Allergic/Immunologic: Reports no additional allergic/immunologic complaints and Reports as per HPI Physical Exam Vital Signs: Last Vital Signs Temp 97.0 F 11/07/23 08:00 Pulse 90 11/07/23 10:02 Resp 20 11/07/23 08:00 BP 140/64 H 11/07/23 10:02 Pulse Ox 93 11/07/23 10:02 O2 Del Method Room Air 11/07/23 08:00 O2 Flow Rate 3 11/03/23 00:00 BMI result Body Mass Index 42.9 Const General: comfortable and no acute distress Orientation/consciousness: patient oriented x3 HEENT Other: Unremarkable Head: Yes normal to inspection Neck Neck: Yes normal visual inspection Chest Chest palpation & inspection: normal inspection of the chest Resp Other: Bilateral wheezing Auscultation: diminished lung sounds Cardio Palpation: normal PMI Heart sounds: S1 normal heart sound present, S2 normal heart sound present, no gallops, no murmurs and no rubs GI Palpation (GI): Soft to palpation Back/Spine/Pelvis Other: unremarkable Skin General skin exam: no rashes or lesions noted Neuro General: patient oriented x3 Extrem General: Yes normal to inspection Psych Mental Status: mental status grossly normal Objective Labs and Meds 11/04/23 08:20 11/07/23 06:21 Lab results: Laboratory Results - last 24 hr 11/06/23 11/06/23 11/06/23 11:35 15:58 16:08 D-Dimer High Sensitivty 276 O2 Saturation ABG pH at Pt Temp ABG pCO2 at Pt Temp ABG pO2 at Pt Temp ABG HCO3 ABG Base Excess (Actual) VBG pH VBG pCO2 VBG pO2 VBG HCO3 VBG O2 Saturation VBG Base Excess Sodium Potassium Chloride Carbon Dioxide Anion Gap BUN Creatinine Estim Creat Clear Calc Estimated GFR POC Glucose 288 H 54 L* Random Glucose Calcium 11/06/23 11/06/23 11/06/23 16:41 16:50 20:58 D-Dimer High Sensitivty O2 Saturation 92.0 ABG pH at Pt Temp 7.54 H ABG pCO2 at Pt Temp 45 ABG pO2 at Pt Temp 67 L ABG HCO3 39 H ABG Base Excess (Actual) 14.7 VBG pH VBG pCO2 VBG pO2 VBG HCO3 VBG O2 Saturation VBG Base Excess Sodium Potassium Chloride Carbon Dioxide Anion Gap BUN Creatinine Estim Creat Clear Calc Estimated GFR POC Glucose 107 297 H Random Glucose Calcium 11/06/23 11/07/23 11/07/23 23:41 06:21 06:24 D-Dimer High Sensitivty O2 Saturation ABG pH at Pt Temp ABG pCO2 at Pt Temp ABG pO2 at Pt Temp ABG HCO3 ABG Base Excess (Actual) VBG pH 7.54 H VBG pCO2 47 VBG pO2 46 VBG HCO3 41 H VBG O2 Saturation 80.0 VBG Base Excess 16.3 Sodium 142 Potassium 3.5 Chloride 91 L Carbon Dioxide 36 H Anion Gap 19 BUN 49 H Creatinine 1.28 Estim Creat Clear Calc 43.9 Estimated GFR 40 POC Glucose 255 H Random Glucose 159 H Calcium 9.3 11/07/23 07:11 D-Dimer High Sensitivty O2 Saturation ABG pH at Pt Temp ABG pCO2 at Pt Temp ABG pO2 at Pt Temp ABG HCO3 ABG Base Excess (Actual) VBG pH VBG pCO2 VBG pO2 VBG HCO3 VBG O2 Saturation VBG Base Excess Sodium Potassium Chloride Carbon Dioxide Anion Gap BUN Creatinine Estim Creat Clear Calc Estimated GFR POC Glucose 157 H Random Glucose Calcium Progress Note: A&P Assessment and plan (1) Acute respiratory failure with hypoxia: Status: Acute (2) Atrial fibrillation with rapid ventricular response: Status: Acute (3) Atrial tachycardia: Status: Acute (4) COPD exacerbation: Status: Acute Plan Highly unlikely that her atrial fibrillation is the primary issue. Off note, patient had normal sinus rhythm at 75/Min on 29 of October when she presented. By admission exam, it seems that she bilateral wheezing and crackles even then. This clearly indicates that her pulmonary issue was preceding any atrial arrhythmias. Based on prior outpatient pulmonary consultation by Dr. Diamond as well as talking to patient, she clearly has underlying COPD. On telemetry, she does break intermittently where we can see sinus beats but then goes into either atrial tachycardia or flutter/fibrillation. May keep on a Cardizem drip for another day or so. She is getting loaded with amiodarone. Hopefully that should help. Again, unless pulmonary status improves, atrial arrhythmias will also probably be recurrent. Discussed with Dr. Pulido. Time Spent With Patient Time: Total time managing care of this patient today 44 minutes. Progress Note: Quality Stroke Does the patient have a stroke diagnosis?: No Procedures Date of Service Date of Service: 11/07/23
[2023-11-07 11:10] LABS: B Type Natriuretic Peptide 44 pg/mL (<100)
[2023-11-07 11:21] LABS: Glucose, Whole Blood 281 mg/dL (60-115)
--- NOTE | 2023-11-07 11:43 | HO.PM.IMPN ---
Subjective Subjective Date of Service: 11/07/23 Interval History: Heart rate improved to 90s overnight, currently 110s on diltiazem 15 mg/hr. Still in AF with occasional sinus tachycardia with frequent PACs. Still short of breath and wheezing but somewhat improved. No abd pain. Review of Systems Review of Systems: Yes all other systems are reviewed and are negative Physical Exam Vital Signs: Vital Signs: Last Vital Signs Temp 97.0 F 11/07/23 08:00 Pulse 90 11/07/23 10:02 Resp 20 11/07/23 08:00 BP 140/64 H 11/07/23 10:02 Pulse Ox 93 11/07/23 10:02 O2 Del Method Room Air 11/07/23 08:00 O2 Flow Rate 3 11/03/23 00:00 BMI result Body Mass Index 42.9 Gen: mild respiratory distress HEENT: sclera anicteric, moist mucus membranes Neck: supple Lungs: diminished, expiratory wheezing Heart: irregular, no murmurs Abd: soft, non-tender, non-distended, obese Ext: no edema Skin: warm/well-perfused Neuro: alert and oriented x3, no focal findings Psych: anxious Objective Data Active Medications Acetaminophen (Acetaminophen 325 Mg Tablet) 650 mg PO Q6H PRN PRN Reason: Pain, Mild (Pain Scale 1-3) Last Admin: 11/03/23 09:31 Dose: 650 mg Documented By: FRANCIS Allopurinol (Allopurinol 300 Mg Tablet) 150 mg PO DAILY [facility] Last Admin: 11/07/23 08:12 Dose: 150 mg Documented By: ILDA Amiodarone HCl (Amiodarone Hcl 200 Mg Tablet) 400 mg PO BID [facility] Last Admin: 11/07/23 08:13 Dose: 400 mg Documented By: ILDA Apixaban (Apixaban 5 Mg Tablet) 5 mg PO BID [facility] Last Admin: 11/07/23 08:13 Dose: 5 mg Documented By: ILDA Levalbuterol HCl 1.25 mg/ (Ipratropium [place] 0.5 mg) 0 mg INHALE RQ4H WHILE AWAKE [facility] Last Admin: 11/07/23 11:04 Dose: Not Given Documented By: ANCELMO Non-Admin Reason: Elevated Heart Rate Cyclobenzaprine HCl (Cyclobenzaprine Hcl 10 Mg Tablet) 10 mg PO TID [facility] Last Admin: 11/07/23 08:11 Dose: 10 mg Documented By: ILDA Digoxin (Digoxin 0.125 Mg Tablet) 0.125 mg PO Q48H [facility] Last Admin: 11/05/23 13:54 Dose: 0.125 mg Documented By: ALEXANDREA Docusate Sodium (Docusate Sodium 100 Mg Capsule) 100 mg PO BID PRN PRN Reason: constipation Famotidine (Famotidine 20 Mg Tablet) 10 mg PO DAILY [facility] Last Admin: 11/07/23 08:14 Dose: 10 mg Documented By: ILDA Fluticasone/Vilanterol (Fluticasone/Vilanterol 100/25 Blst.W.Dev) 1 puff INHALE RDAILY [facility] Last Admin: 11/07/23 08:25 Dose: 1 puff Documented By: ILDA Furosemide (Furosemide 40 Mg Tablet) 40 mg PO BID [facility]; Protocol Last Admin: 11/07/23 08:14 Dose: 40 mg Documented By: ILDA Gabapentin (Gabapentin 600 Mg Tablet) 600 mg PO TID [facility] Last Admin: 11/07/23 08:13 Dose: 600 mg Documented By: ILDA Glucose (Glucose Gel 15 Gm Gel..Gram.) 15 gm PO Q15M PRN; Protocol PRN Reason: per Hypoglycemia Standing Ord. Guaifenesin (Guaifenesin La 600 Mg Tab.Er.12h) 1,200 mg PO BID [facility] Last Admin: 11/07/23 08:13 Dose: 1,200 mg Documented By: ILDA Guaifenesin (Guaifenesin 200 Mg/10 Ml 10 Ml Liquid) 10 ml PO Q6H PRN PRN Reason: Cough Last Admin: 11/05/23 04:23 Dose: 10 ml Documented By: SALAJAY Dextrose (D10) 250 mls @ 750 mls/hr IV Q15M PRN; Protocol PRN Reason: per Hypoglycemia Standing Ord. Diltiazem HCl 125 mg/ Sodium (Chloride) 125 mls @ 0 mls/hr IVCONT .Q0M [facility]; Protocol Last Admin: 11/07/23 04:01 Dose: 15 mg/hr, 15 mls/hr Documented By: HO.KUDRYAD Piperacillin Sod/Tazobactam (Sod 3.375 gm/ Sodium Chloride) 50 mls @ 100 mls/hr IV Q6H [facility] Last Infusion: 11/07/23 11:08 Dose: Infused Documented By: ILDA Insulin Glargine (Insulin Glargine,Hum.Rec.Anlog 100 Unit/Ml 10 Ml Vial) 30 unit SUBCUT DAILY [facility] Last Admin: 11/07/23 08:19 Dose: 30 unit Documented By: ILDA Insulin Human Lispro (Insulin Lispro 100 Unit/Ml 3 Ml Vial) 0 unit SUBCUT QIDACHS [facility]; Protocol Last Admin: 11/07/23 08:18 Dose: 4 unit Documented By: ILDA Levalbuterol HCl (Levalbuterol Hcl 1.25 Mg/3 Ml Vial.Neb) 1.25 mg INHALE Q2H PRN PRN Reason: Shortness of Breath/Wheezing Lidocaine (Lidocaine 4 % Patch Adh..Patch) 1 patch TRANSDERMA DAILY [facility]; Protocol Last Admin: 11/07/23 08:13 Dose: 1 patch Documented By: ILDA Melatonin (Melatonin 3 Mg Tablet) 6 mg PO BEDTIME PRN PRN Reason: Insomnia Methylprednisolone Sodium Succinate (Methylprednisolone Sod Succ 40 Mg/Ml Vial) 40 mg IVPUSH Q12H [facility] Morphine Sulfate (Morphine Sulfate 2 Mg/Ml Cartridge) 3 mg IVPUSH Q3H PRN; Protocol PRN Reason: severe pain Last Admin: 11/07/23 10:20 Dose: 3 mg Documented By: ILDA Nicotine (Nicotine 14 Mg Patch.Td24) 14 mg TRANSDERMA DAILY [facility] Last Admin: 11/07/23 08:14 Dose: 14 mg Documented By: ILDA Ondansetron HCl (Ondansetron Hcl 4 Mg/2 Ml Vial) 4 mg IVPUSH Q8H PRN PRN Reason: Nausea and Vomiting Paroxetine HCl (Paroxetine Hcl 20 Mg Tablet) 20 mg PO DAILY@0900 [facility] Last Admin: 11/07/23 08:14 Dose: 20 mg Documented By: ILDA Polyethylene Glycol (Polyethylene Glycol 3350 17 Gm Powd.Pack) 17 gm PO DAILY [facility] Last Admin: 11/07/23 08:11 Dose: 17 gm Documented By: ILDA Senna/Docusate Sodium (Sennosides/Docusate Sodium Tablet) 2 tab PO BID [facility] Last Admin: 11/07/23 08:13 Dose: 2 tab Documented By: ILDA Sodium Chloride (0.9 % Sodium Chloride Flush 3 Ml Syringe) 3 ml IVFLUSH QSHIFT [facility] Last Admin: 11/07/23 08:23 Dose: Not Given Documented By: ILDA Non-Admin Reason: cardizem drip going Labs 11/04/23 08:20 11/07/23 06:21 Labs: Laboratory Results - last 24 hr 11/06/23 11/06/23 11/06/23 15:58 16:08 16:41 D-Dimer High Sensitivty 276 O2 Saturation ABG pH at Pt Temp ABG pCO2 at Pt Temp ABG pO2 at Pt Temp ABG HCO3 ABG Base Excess (Actual) VBG pH VBG pCO2 VBG pO2 VBG HCO3 VBG O2 Saturation VBG Base Excess Anion Gap Estim Creat Clear Calc Estimated GFR POC Glucose 54 L* 107 Random Glucose Calcium B-Natriuretic Peptide 11/06/23 11/06/23 11/06/23 16:50 20:58 23:41 D-Dimer High Sensitivty O2 Saturation 92.0 ABG pH at Pt Temp 7.54 H ABG pCO2 at Pt Temp 45 ABG pO2 at Pt Temp 67 L ABG HCO3 39 H ABG Base Excess (Actual) 14.7 VBG pH VBG pCO2 VBG pO2 VBG HCO3 VBG O2 Saturation VBG Base Excess Anion Gap Estim Creat Clear Calc Estimated GFR POC Glucose 297 H 255 H Random Glucose Calcium B-Natriuretic Peptide 11/07/23 11/07/23 11/07/23 06:21 06:24 07:11 D-Dimer High Sensitivty O2 Saturation ABG pH at Pt Temp ABG pCO2 at Pt Temp ABG pO2 at Pt Temp ABG HCO3 ABG Base Excess (Actual) VBG pH 7.54 H VBG pCO2 47 VBG pO2 46 VBG HCO3 41 H VBG O2 Saturation 80.0 VBG Base Excess 16.3 Anion Gap 19 Estim Creat Clear Calc 43.9 Estimated GFR 40 POC Glucose 157 H Random Glucose 159 H Calcium 9.3 B-Natriuretic Peptide 11/07/23 11/07/23 08:28 11:13 D-Dimer High Sensitivty O2 Saturation ABG pH at Pt Temp ABG pCO2 at Pt Temp ABG pO2 at Pt Temp ABG HCO3 ABG Base Excess (Actual) VBG pH VBG pCO2 VBG pO2 VBG HCO3 VBG O2 Saturation VBG Base Excess Anion Gap Estim Creat Clear Calc Estimated GFR POC Glucose 281 H Random Glucose Calcium B-Natriuretic Peptide 44 ITS Impressions Chest X-Ray 10/30/23 18:05 IMPRESSION: 1. Crowding of interstitial lung markings at the bases concerning for possible interstitial infiltrate or atelectasis. 2. Blunting of right costophrenic angle probably small subpulmonic pleural effusion. Abdomen/Pelvis CT 11/02/23 15:42 IMPRESSION: The pancreas is abnormal. There is an abrupt change in size with atrophy and ductal dilation beyond the pancreatic neck. An occult lesion should be excluded. Extra and intrahepatic biliary dilation to the level of the ampulla. There are small gallstones layering in the gallbladder which is mildly distended. A nonopaque distal bile duct calculus cannot be excluded. Lower lung opacities most likely atelectasis. Nonspecific small round low attenuating lesion in the spleen. In the absence of a known primary malignancy this does not require specific imaging follow-up. Large amount of fecal residue. Pelvic floor relaxation. No abscess demonstrated Fleischner guidelines were followed. Assessment and Plan (1) COPD exacerbation: Status: Acute Plan d8 78yo F with pAF on apixaban, COPD not on hO2, gout, HF with unknown EF, gout, DM2 presented with AMS, admitted for hypoxia due to CAP + COPD acute hypoxic resp failure and sepsis due to CAP + COPD exac - IV methylprednisolone 60 mg q8h -> 40 mg q12h; scheduled/prn nebs - weaned off O2 - IV vanco 10/30-10/31, IV ceftriaxone 10/31-11/01, IV piperacillin-tazobactam 11/01-11/06, IV azithro 10/30-11/04 - continue Breo, guaifenesin - outpt f/u with time analysis clerk Dr Diamond in 2 wk; inpt Pulm consulted AF/RVR - diltiazem IV bolus then gtt; loaded with digoxin IV 0.25 mg x2 and now on maintenance 0.125 mg PO q48h; also on amiodarone PO load 400 mg bid started 11/05 - continue apixaban - Cardiology following; continue diltiazem gtt for another 1-2d before converting to PO - TTE 11/04: - The visually estimated ejection fraction is between 60-65%. - Normal right ventricular cavity size and systolic function. - Limited assessment of the valves. No obvious vegetation. sepsis due to Enterococcus faecalis bacteremia - ID consulted, change IV piperacillin-tazobactam to daptomycin now - repeat BCx from 11/01 negative; TTE with no vegetation - will place PICC today. Plan 28d of IV daptomycin from neg Cx, so end date of 11/30/23 possible pancreatic mass - on CT A/P, noted to have abrupt change in size with atrophy + ductal dilation beyond pancreatic neck; also extra- and intra-hepatic biliary dilation to level of ampulla - GI consulted, will need MRI with/without contrast; will try to do this tomorrow provided she can lay flat acute metabolic encephalopathy due to hypoglycemia - resolved gout - continue allopurinol chronic HF with unknown EF - continue maintenance furosemide chronic pain - continue cyclobenzaprine + gabapentin, added lidocaine patch + prn morphine DM2 - basal-bolus insulin morbid obesity - diet/exercise counseling VTE ppx - apixaban dispo - eventually home with VNA In my clinical judgment, the patient requires continued inpatient hospitalization for the following reasons: IV ABX + steroids, bacteremia with unknown source, rate control, resp distress Total time managing care of this patient today: 50 minutes. Quality Stroke Does the patient have a stroke diagnosis?: No VTE Prior VTE?: No VTE Risk Level:: Medical - moderate - high VTE Device Contraindication: Treatment Not Indicated VTE Drug Contraindication: N/A - Med Ordered
[2023-11-07] MEDS: Morphine Sulfate 4 MG/ML CARTRIDGE IVPUSH (12:12)
--- NOTE | 2023-11-07 12:12 | P.PNPL_ITS ---
Subjective Subjective Date of Service: 11/07/23 Interval history: With AFib controlled respiratory status appears to be at baseline. Objective Data Labs 11/04/23 08:20 11/07/23 06:21 Labs: Laboratory Results - last 24 hr 11/06/23 11/06/23 11/06/23 15:58 16:08 16:41 D-Dimer High Sensitivty 276 O2 Saturation ABG pH at Pt Temp ABG pCO2 at Pt Temp ABG pO2 at Pt Temp ABG HCO3 ABG Base Excess (Actual) VBG pH VBG pCO2 VBG pO2 VBG HCO3 VBG O2 Saturation VBG Base Excess Sodium Potassium Chloride Carbon Dioxide Anion Gap BUN Creatinine Estim Creat Clear Calc Estimated GFR POC Glucose 54 L* 107 Random Glucose Calcium B-Natriuretic Peptide 11/06/23 11/06/23 11/06/23 16:50 20:58 23:41 D-Dimer High Sensitivty O2 Saturation 92.0 ABG pH at Pt Temp 7.54 H ABG pCO2 at Pt Temp 45 ABG pO2 at Pt Temp 67 L ABG HCO3 39 H ABG Base Excess (Actual) 14.7 VBG pH VBG pCO2 VBG pO2 VBG HCO3 VBG O2 Saturation VBG Base Excess Sodium Potassium Chloride Carbon Dioxide Anion Gap BUN Creatinine Estim Creat Clear Calc Estimated GFR POC Glucose 297 H 255 H Random Glucose Calcium B-Natriuretic Peptide 11/07/23 11/07/23 11/07/23 06:21 06:24 07:11 D-Dimer High Sensitivty O2 Saturation ABG pH at Pt Temp ABG pCO2 at Pt Temp ABG pO2 at Pt Temp ABG HCO3 ABG Base Excess (Actual) VBG pH 7.54 H VBG pCO2 47 VBG pO2 46 VBG HCO3 41 H VBG O2 Saturation 80.0 VBG Base Excess 16.3 Sodium 142 Potassium 3.5 Chloride 91 L Carbon Dioxide 36 H Anion Gap 19 BUN 49 H Creatinine 1.28 Estim Creat Clear Calc 43.9 Estimated GFR 40 POC Glucose 157 H Random Glucose 159 H Calcium 9.3 B-Natriuretic Peptide 11/07/23 11/07/23 08:28 11:13 D-Dimer High Sensitivty O2 Saturation ABG pH at Pt Temp ABG pCO2 at Pt Temp ABG pO2 at Pt Temp ABG HCO3 ABG Base Excess (Actual) VBG pH VBG pCO2 VBG pO2 VBG HCO3 VBG O2 Saturation VBG Base Excess Sodium Potassium Chloride Carbon Dioxide Anion Gap BUN Creatinine Estim Creat Clear Calc Estimated GFR POC Glucose 281 H Random Glucose Calcium B-Natriuretic Peptide 44 Microbiology Microbiology Results: Microbiology 10/30/23 19:59 Blood - Venous Blood Culture - Final No growth after 5 days. 11/02/23 13:18 Blood - Venous Blood Culture - Preliminary No growth after 48 hours. 11/02/23 13:18 Blood - Venous Blood Culture - Preliminary No growth after 48 hours. 10/30/23 19:11 Blood - Venous Blood Culture - Final Enterococcus faecalis Review of Systems Cardiovascular: Denies dyspnea Respiratory: Denies cough, Denies dyspnea and Denies wheezing Allergic/Immunologic: Denies wheezing Physical Exam 2 Vital Signs: Vital Signs: Last Vital Signs Temp 97.0 F 11/07/23 08:00 Pulse 90 11/07/23 10:02 Resp 20 11/07/23 08:00 BP 140/64 H 11/07/23 10:02 Pulse Ox 93 11/07/23 10:02 O2 Del Method Room Air 11/07/23 08:00 O2 Flow Rate 3 11/03/23 00:00 BMI result Body Mass Index 42.9 Const: General: no acute distress, alert and awake Eyes: Sclerae: sclerae normal EOM: EOMs intact bilaterally Neck: Neck: Yes no lymphadenopathy, Yes trachea midline and Yes supple Resp: Effort & Inspection: normal respiratory effort and no respiratory distress Auscultation: clear to auscultation bilaterally Cardio: Rate: regular rate Rhythm: regular rhythm Heart sounds: no gallops, no murmurs and no rubs GI: Palpation (GI): Soft to palpation and Other GI palpation findings present ( Nontender) Auscultation: normal bowel sounds Extrem: General: Yes no pedal edema, No clubbing and No cyanosis Procedures Date of Service Date of Service: 11/07/23 Assessment and Plan Assessment and plan (1) Atrial fibrillation with rapid ventricular response: Status: Acute (2) Acute respiratory failure with hypoxia: Status: Acute Plan Impression: 78-year-old lady admitted with hypoxia with unclear etiology treated for empiric COPD exacerbation and community-acquired pneumonia with hospital course complicated by AFib with RVR. CT chest shows no significant emphysema, but an elevated right hemidiaphragm with enlarged liver and right lower lobe atelectasis. No evidence of lobar pneumonia. No evidence of acute COPD exacerbation at this time. With control of RVR patient respiratory status improved to baseline. Recommendations: Consider tapering off systemic glucocorticoids. Enterococcus 1 bottle out of 4 appears to be contaminant, consider monitoring off antibiotics or downgrading to ampicillin. Time Spent With Patient Time: Total time managing care of this patient today ____ minutes. Progress Note: Quality Stroke Does the patient have a stroke diagnosis?: No
[2023-11-07] MEDS: Digoxin 0.125 MG TABLET PO (13:23)
--- NOTE | 2023-11-07 13:34 | MHC.CM.PN ---
EMR reviewed and per MD rounds, pt is not medically cleared for discharge due to management of IV antibiotics, pending PICC line placement, and awaiting ID final recommendations. This CM met with pt to discuss her discharge plan, and pt states she wants to return home with resumptions of [facility] and home infusion services, and would not like to go to [facility]. Pt states she will need assistance with transportation home. Referral placed to [facility] and pt is 100% covered for home infusion. Liaison from [facility] will be in to meet pt and provide education.
[2023-11-07] MEDS: 0.9 % Sodium Chloride Flush 3 ML SYRINGE IVFLUSH (16:00)
[2023-11-07 16:47] LABS: Glucose, Whole Blood 213 mg/dL (60-115)
[2023-11-07] MEDS: methylPREDNISolone Sod Succ 40 MG/ML VIAL IVPUSH (17:28)
[2023-11-07] MEDS: levalbuterol HCL 1.25 MG, Ipratropium Bromide 0.5 MG INHALE (19:58)
[2023-11-07 20:25] LABS: Glucose, Whole Blood 209 mg/dL (60-115)
[2023-11-08] VITALS (10 sets, daily range): BP systolic 127–153; BP diastolic 65–86; PULSE 79–108; RESP 18–22; TEMP 36–36.7; O2SAT 90–95
[2023-11-08] MEDS: dilTIAZem HCL 125 MG in 0.9 % Sodium Chloride 100 ML 15 MG IVCONT (04:37)
[2023-11-08] MEDS: methylPREDNISolone Sod Succ 40 MG/ML VIAL IVPUSH ×2 (05:19→19:14)
[2023-11-08 07:29] LABS: Glucose, Whole Blood 294 mg/dL (60-115)
[2023-11-08] MEDS: polyethylene glycoL 3350 17 GM POWD.PACK PO (08:00)
[2023-11-08] MEDS: Fluticasone/Vilanterol 100/25 BLST.W.DEV 1 PUFF INHALE (08:00)
[2023-11-08] MEDS: Famotidine 20 MG TABLET 10 MG PO (08:01)
[2023-11-08] MEDS: allopurinoL 300 MG TABLET 150 MG PO (08:02)
[2023-11-08] MEDS: Apixaban 5 MG TABLET PO ×2 (08:02→20:13)
[2023-11-08] MEDS: Gabapentin 600 MG TABLET PO ×3 (08:02→20:13)
[2023-11-08] MEDS: guaiFENesin LA 600 MG TAB.ER.12H 1200 MG PO ×2 (08:02→20:27)
[2023-11-08] MEDS: Cyclobenzaprine HCl 10 MG TABLET PO ×3 (08:02→20:14)
[2023-11-08] MEDS: Furosemide 40 MG TABLET PO ×2 (08:02→20:15)
[2023-11-08] MEDS: PARoxetine HCL 20 MG TABLET PO (08:02)
[2023-11-08] MEDS: Amiodarone HCL 200 MG TABLET 400 MG PO ×2 (08:02→20:14)
[2023-11-08] MEDS: Sennosides/Docusate Sodium TABLET 2 TAB PO ×2 (08:02→20:13)
[2023-11-08] MEDS: Lidocaine 4 % Patch ADH..PATCH 1 PATCH TRANSDERMA (08:03)
[2023-11-08] MEDS: Nicotine 14 MG PATCH.TD24 TRANSDERMA (08:03)
[2023-11-08] MEDS: Insulin Lispro 100 UNIT/ML 3 ML VIAL SUBCUT ×4 (08:04→20:24)
[2023-11-08] MEDS: Insulin Glargine,Hum.rec.anlog 100 UNIT/ML 10 ML VIAL 30 UNIT SUBCUT (08:05)
[2023-11-08] MEDS: 0.9 % Sodium Chloride Flush 3 ML SYRINGE IVFLUSH ×2 (08:06→15:19)
[2023-11-08] MEDS: Morphine Sulfate 2 MG/ML CARTRIDGE 3 MG IVPUSH ×4 (08:07→20:19)
[2023-11-08] MEDS: levalbuterol HCL 1.25 MG, Ipratropium Bromide 0.5 MG INHALE ×3 (08:24→19:40)
--- NOTE | 2023-11-08 09:04 | P.PNIM_ITS ---
Subjective Subjective Date of Service: 11/08/23 Interval History: Heart rate improved to 90s overnight, currently 110s on diltiazem 15 mg/hr. Still in AF with occasional sinus tachycardia with frequent PACs. Still short of breath and wheezing but somewhat improved. No abd pain. Review of Systems All other system reviewed and negative Constitutional Constitutional: Reports fatigue, Reports lethargy, Reports poor appetite and Reports weakness Cardiovascular Cardiovascular: Reports dyspnea on exertion Respiratory Respiratory: Reports cough, Reports dyspnea on exertion and Reports wheezing Neurologic Neurologic: Reports weakness Endocrine Endocrine: Reports fatigue Allergic/Immunologic Allergic/Immunologic: Reports wheezing Physical Exam 2 Vital Signs: Vital Signs: Last Vital Signs Temp 96.8 F 11/08/23 07:56 Pulse 98 11/08/23 08:26 Resp 18 11/08/23 08:26 BP 138/65 11/08/23 07:56 Pulse Ox 93 11/08/23 07:56 O2 Del Method Room Air 11/08/23 07:56 O2 Flow Rate 3 11/03/23 00:00 BMI result Body Mass Index 42.9 Const: Other: General awake alert x3, anxious, in no acute distress, noted to have congested cough. Neck supple no JVD. CVS regular rate rhythm, tachy regular Respiratory lungs bilateral expiratory wheeze, prolonged expiration, no respiratory distress, no rales Gastrointestinal abdomen soft, non tender, bowel sounds audible . Extremities no edema. Neuro non focal Psych appropriate affect Objective Data Active Medications Acetaminophen (Acetaminophen 325 Mg Tablet) 650 mg PO Q6H PRN PRN Reason: Pain, Mild (Pain Scale 1-3) Last Admin: 11/03/23 09:31 Dose: 650 mg Documented By: FRANCIS Allopurinol (Allopurinol 300 Mg Tablet) 150 mg PO DAILY REPLACED BY [facility] Last Admin: 11/08/23 08:02 Dose: 150 mg Documented By: ILDA Amiodarone HCl (Amiodarone Hcl 200 Mg Tablet) 400 mg PO BID REPLACED BY [facility] Last Admin: 11/08/23 08:02 Dose: 400 mg Documented By: ILDA Apixaban (Apixaban 5 Mg Tablet) 5 mg PO BID REPLACED BY [facility] Last Admin: 11/08/23 08:02 Dose: 5 mg Documented By: ILDA Levalbuterol HCl 1.25 mg/ (Ipratropium [place] 0.5 mg) 0 mg INHALE RQ4H WHILE AWAKE REPLACED BY [facility] Last Admin: 11/08/23 08:24 Dose: 0.5 dose Documented By: NEYDA Cyclobenzaprine HCl (Cyclobenzaprine Hcl 10 Mg Tablet) 10 mg PO TID REPLACED BY [facility] Last Admin: 11/08/23 08:02 Dose: 10 mg Documented By: ILDA Digoxin (Digoxin 0.125 Mg Tablet) 0.125 mg PO Q48H REPLACED BY [facility] Last Admin: 11/07/23 13:23 Dose: 0.125 mg Documented By: ILDA Docusate Sodium (Docusate Sodium 100 Mg Capsule) 100 mg PO BID PRN PRN Reason: constipation Famotidine (Famotidine 20 Mg Tablet) 10 mg PO DAILY REPLACED BY [facility] Last Admin: 11/08/23 08:01 Dose: 10 mg Documented By: ILDA Fluticasone/Vilanterol (Fluticasone/Vilanterol 100/25 Blst.W.Dev) 1 puff INHALE RDAILY REPLACED BY [facility] Last Admin: 11/08/23 08:00 Dose: 1 puff Documented By: ILDA Furosemide (Furosemide 40 Mg Tablet) 40 mg PO BID REPLACED BY [facility]; Protocol Last Admin: 11/08/23 08:02 Dose: 40 mg Documented By: ILDA Gabapentin (Gabapentin 600 Mg Tablet) 600 mg PO TID REPLACED BY [facility] Last Admin: 11/08/23 08:02 Dose: 600 mg Documented By: ILDA Glucose (Glucose Gel 15 Gm Gel..Gram.) 15 gm PO Q15M PRN; Protocol PRN Reason: per Hypoglycemia Standing Ord. Guaifenesin (Guaifenesin La 600 Mg Tab.Er.12h) 1,200 mg PO BID REPLACED BY [facility] Last Admin: 11/08/23 08:02 Dose: 1,200 mg Documented By: ILDA Guaifenesin (Guaifenesin 200 Mg/10 Ml 10 Ml Liquid) 10 ml PO Q6H PRN PRN Reason: Cough Last Admin: 11/05/23 04:23 Dose: 10 ml Documented By: MELLO Dextrose (D10) 250 mls @ 750 mls/hr IV Q15M PRN; Protocol PRN Reason: per Hypoglycemia Standing Ord. Diltiazem HCl 125 mg/ Sodium (Chloride) 125 mls @ 0 mls/hr IVCONT .Q0M REPLACED BY [facility]; Protocol Last Admin: 11/08/23 04:37 Dose: 15 mg/hr, 15 mls/hr Documented By: ALEXANDRIA Daptomycin 907.184 mg/ Sodium (Chloride) 68.1437 mls @ 100 mls/hr IV Q24H REPLACED BY [facility] Last Infusion: 11/07/23 14:04 Dose: Infused Documented By: ILDA Insulin Glargine (Insulin Glargine,Hum.Rec.Anlog 100 Unit/Ml 10 Ml Vial) 30 unit SUBCUT DAILY REPLACED BY [facility] Last Admin: 11/08/23 08:05 Dose: 30 unit Documented By: ILDA Insulin Human Lispro (Insulin Lispro 100 Unit/Ml 3 Ml Vial) 0 unit SUBCUT QIDACHS REPLACED BY [facility]; Protocol Last Admin: 11/08/23 08:04 Dose: 9 unit Documented By: ILDA Levalbuterol HCl (Levalbuterol Hcl 1.25 Mg/3 Ml Vial.Neb) 1.25 mg INHALE Q2H PRN PRN Reason: Shortness of Breath/Wheezing Lidocaine (Lidocaine 4 % Patch Adh..Patch) 1 patch TRANSDERMA DAILY REPLACED BY [facility]; Protocol Last Admin: 11/08/23 08:03 Dose: 1 patch Documented By: ILDA Melatonin (Melatonin 3 Mg Tablet) 6 mg PO BEDTIME PRN PRN Reason: Insomnia Methylprednisolone Sodium Succinate (Methylprednisolone Sod Succ 40 Mg/Ml Vial) 40 mg IVPUSH Q12H REPLACED BY [facility] Last Admin: 11/08/23 05:19 Dose: 40 mg Documented By: ALEXANDRIA Morphine Sulfate (Morphine Sulfate 2 Mg/Ml Cartridge) 3 mg IVPUSH Q3H PRN; Protocol PRN Reason: severe pain Last Admin: 11/08/23 08:07 Dose: 3 mg Documented By: ILDA Nicotine (Nicotine 14 Mg Patch.Td24) 14 mg TRANSDERMA DAILY REPLACED BY [facility] Last Admin: 11/08/23 08:03 Dose: 14 mg Documented By: ILDA Ondansetron HCl (Ondansetron Hcl 4 Mg/2 Ml Vial) 4 mg IVPUSH Q8H PRN PRN Reason: Nausea and Vomiting Paroxetine HCl (Paroxetine Hcl 20 Mg Tablet) 20 mg PO DAILY@0900 REPLACED BY [facility] Last Admin: 11/08/23 08:02 Dose: 20 mg Documented By: ILDA Polyethylene Glycol (Polyethylene Glycol 3350 17 Gm Powd.Pack) 17 gm PO DAILY REPLACED BY [facility] Last Admin: 11/08/23 08:00 Dose: 17 gm Documented By: ILDA Senna/Docusate Sodium (Sennosides/Docusate Sodium Tablet) 2 tab PO BID REPLACED BY [facility] Last Admin: 11/08/23 08:02 Dose: 2 tab Documented By: ILDA Sodium Chloride (0.9 % Sodium Chloride Flush 3 Ml Syringe) 3 ml IVFLUSH QSHIFT REPLACED BY [facility] Last Admin: 11/08/23 08:06 Dose: 3 ml Documented By: ILDA Labs 11/04/23 08:20 11/07/23 06:21 Labs: Laboratory Results - last 24 hr 11/07/23 11/07/23 11/07/23 06:21 08:28 11:13 POC Glucose 281 H Total Creatine Kinase 31 B-Natriuretic Peptide 44 11/07/23 11/07/23 11/08/23 16:27 20:19 07:03 POC Glucose 213 H 209 H 294 H Total Creatine Kinase B-Natriuretic Peptide Microbiology Microbiology Results: Microbiology 11/02/23 13:18 Blood Culture - Final Blood - Venous No growth after 5 days. 11/02/23 13:18 Blood Culture - Final Blood - Venous No growth after 5 days. Assessment and Plan (1) Acute respiratory failure with hypoxia: Status: Acute (2) Atrial fibrillation with rapid ventricular response: Status: Acute (3) COPD exacerbation: Status: Acute (4) Lesion of pancreas: Status: Acute Plan d8 78yo F with pAF on apixaban, COPD not on hO2, gout, HF with unknown EF, gout, DM2 presented with AMS, admitted for hypoxia due to CAP + COPD acute hypoxic resp failure and sepsis due to CAP + COPD exac - IV methylprednisolone 60 mg q8h -> 40 mg q12h; scheduled/prn nebs - weaned off O2 - IV vanco 10/30-10/31, IV ceftriaxone 10/31-11/01, IV piperacillin-tazobactam 11/01- 11/06, IV azithro 10/30-11/04 - continue Breo, guaifenesin - outpt f/u with concrete pile driver operator Dr Diamond in 2 wk; inpt Pulm consulted AF/RVR - diltiazem IV bolus then gtt; loaded with digoxin IV 0.25 mg x2 and now on maintenance 0.125 mg PO q48h; also on amiodarone PO load 400 mg bid started 11/05 - continue apixaban - Cardiology following; continue diltiazem gtt for another 1-2d before converting to PO - TTE 11/04: - The visually estimated ejection fraction is between 60-65%. - Normal right ventricular cavity size and systolic function. - Limited assessment of the valves. No obvious vegetation. sepsis due to Enterococcus faecalis bacteremia - ID consulted, change IV piperacillin-tazobactam to daptomycin now - repeat BCx from 11/01 negative; TTE with no vegetation - will place PICC. Plan 28d of IV daptomycin from neg Cx, so end date of 11/30/23 possible pancreatic mass - on CT A/P, noted to have abrupt change in size with atrophy + ductal dilation beyond pancreatic neck; also extra- and intra-hepatic biliary dilation to level of ampulla - GI consulted, MRI with/without contrast today; acute metabolic encephalopathy due to hypoglycemia - resolved gout - continue allopurinol chronic HF with unknown EF - continue maintenance furosemide chronic pain - continue cyclobenzaprine + gabapentin, added lidocaine patch + prn morphine DM2 - basal-bolus insulin morbid obesity - diet/exercise counseling VTE ppx - apixaban dispo - eventually home with VNA In my clinical judgment, the patient requires continued inpatient hospitalization for the following reasons: IV ABX + steroids, bacteremia with unknown source, rate control, resp distress Quality Stroke Does the patient have a stroke diagnosis?: No VTE Prior VTE?: No VTE Risk Level:: Medical - moderate - high VTE Device Contraindication: Treatment Not Indicated VTE Drug Contraindication: N/A - Med Ordered
--- NOTE | 2023-11-08 09:55 | PM.PNCARD ---
Subjective Subjective Date of Service: 11/08/23 Interval history: She states her breathing is better. On telemetry, rates are still fast. Seems to be sinus, frequent PACs, atrial tach. Review of Systems Review of Systems Yes all other systems are reviewed and are negative Constitutional: Reports as per HPI and Reports no additional constitutional complaints Eyes: Reports as per HPI and Denies no additional eye complaints Denies system reviewed and no additional complaints, except as documented and Reports as per HPI Cardiovascular: Reports as per HPI, Reports no additional cardiovascular complaints, Denies acrocyanosis, Denies cool extremities, Denies chest pain, Denies leg edema, Denies lightheadedness, Denies palpitations and Reports dyspnea Respiratory: Reports as per HPI, Denies no additional respiratory complaints and Reports dyspnea Gastrointestinal: Reports as per HPI and Denies no additional gastrointestinal complaints Genitourinary: Reports as per HPI Musculoskeletal: Reports no additional musculoskeletal complaints and Reports as per HPI Skin/Breast: Reports system reviewed and no additional complaints, except as docu Reports system reviewed and no additional complaints, except as documented and Reports as per HPI Psychiatric: Reports no additional psychiatric complaints and Reports as per HPI Endocrine: Reports no additional endocrine complaints, Reports as per HPI and Denies palpitations Hematologic/Lymphatic: Reports no additional hematologic/lymphatic complaints and Reports as per HPI Allergic/Immunologic: Reports no additional allergic/immunologic complaints and Reports as per HPI Physical Exam Vital Signs: Last Vital Signs Temp 96.8 F 11/08/23 07:56 Pulse 98 11/08/23 08:26 Resp 18 11/08/23 08:26 BP 138/65 11/08/23 07:56 Pulse Ox 93 11/08/23 07:56 O2 Del Method Room Air 11/08/23 07:56 O2 Flow Rate 3 11/03/23 00:00 BMI result Body Mass Index 42.9 Const General: comfortable and no acute distress Orientation/consciousness: patient oriented x3 HEENT Other: Unremarkable Head: Yes normal to inspection Neck Neck: Yes normal visual inspection Chest Chest palpation & inspection: normal inspection of the chest Resp Auscultation: wheezes and diminished lung sounds Cardio Palpation: normal PMI Heart sounds: S1 normal heart sound present, S2 normal heart sound present, no gallops, no murmurs and no rubs GI Palpation (GI): Soft to palpation Back/Spine/Pelvis Other: unremarkable Skin General skin exam: no rashes or lesions noted Neuro General: patient oriented x3 Extrem General: Yes normal to inspection Psych Mental Status: mental status grossly normal Objective Labs and Meds 11/04/23 08:20 11/07/23 06:21 Lab results: Laboratory Results - last 24 hr 11/07/23 11/07/23 11/07/23 06:21 08:28 11:13 POC Glucose 281 H Total Creatine Kinase 31 B-Natriuretic Peptide 44 11/07/23 11/07/23 11/08/23 16:27 20:19 07:03 POC Glucose 213 H 209 H 294 H Total Creatine Kinase B-Natriuretic Peptide Progress Note: A&P Assessment and plan (1) Acute respiratory failure with hypoxia: Status: Acute (2) Atrial fibrillation with rapid ventricular response: Status: Acute (3) Atrial tachycardia: Status: Acute (4) COPD exacerbation: Status: Acute Plan Clinically, she still wheezy on exam. Still feel that atrial arrhythmias secondary to respiratory issues as when she came in she was already wheezy but still in normal sinus rhythm. Currently, she is going sinus tachycardia, frequent PACs with atrial tachycardia. Current meds include diltiazem drip, oral amiodarone, digoxin. If IV access permits, we can also started on amiodarone drip. In that case, then switch to oral diltiazem. Hopefully, when the pulmonary status improves in the next few days, cardiac status will also improve. Will follow-up with you. Discussed with hospitalist. Time Spent With Patient Time: Total time managing care of this patient today ____ minutes. Progress Note: Quality Stroke Does the patient have a stroke diagnosis?: No Procedures Date of Service Date of Service: 11/08/23
[2023-11-08 11:11] LABS: Glucose, Whole Blood 330 mg/dL (60-115)
[2023-11-08] MEDS: dilTIAZem HCL 30 MG TABLET 90 MG PO ×3 (12:41→20:14)
[2023-11-08] MEDS: LORazepam 1 MG TABLET PO (12:41)
[2023-11-08] MEDS: Amiodarone/Dextrose 150 MG/100 ML PLAST..BAG 600 MG IV (14:05)
[2023-11-08] MEDS: Amiodarone HCL 900 MG in 0.9 % Sodium Chloride 500 ML 34.53 MG IVCONT (14:21)
[2023-11-08 15:54] LABS: Glucose, Whole Blood 305 mg/dL (60-115)
[2023-11-08] MEDS: guaiFENesin 200 MG/10 ML 10 ML LIQUID PO (20:13)
[2023-11-08 20:36] LABS: Glucose, Whole Blood 150 mg/dL (60-115)
[2023-11-09] VITALS (9 sets, daily range): BP systolic 133–162; BP diastolic 64–81; PULSE 65–95; RESP 18–21; TEMP 36.1–36.7; O2SAT 93–100
[2023-11-09] MEDS: 0.9 % Sodium Chloride Flush 3 ML SYRINGE IVFLUSH ×2 (00:27→20:54)
[2023-11-09] MEDS: guaiFENesin 200 MG/10 ML 10 ML LIQUID PO (02:00)
[2023-11-09] MEDS: Morphine Sulfate 2 MG/ML CARTRIDGE 3 MG IVPUSH ×4 (02:16→20:31)
[2023-11-09] MEDS: Acetaminophen 325 MG TABLET 650 MG PO (02:16)
[2023-11-09] MEDS: methylPREDNISolone Sod Succ 40 MG/ML VIAL IVPUSH ×2 (05:45→11:47)
[2023-11-09 07:46] LABS: Glucose, Whole Blood 224 mg/dL (60-115)
[2023-11-09] MEDS: Insulin Lispro 100 UNIT/ML 3 ML VIAL SUBCUT ×2 (08:17→20:52)
[2023-11-09] MEDS: Insulin Glargine,Hum.rec.anlog 100 UNIT/ML 10 ML VIAL 30 UNIT SUBCUT (08:17)
[2023-11-09] MEDS: dilTIAZem HCL 30 MG TABLET 90 MG PO ×4 (08:23→20:33)
[2023-11-09] MEDS: Gabapentin 600 MG TABLET PO ×3 (08:24→20:33)
[2023-11-09] MEDS: Famotidine 20 MG TABLET 10 MG PO (08:24)
[2023-11-09] MEDS: PARoxetine HCL 20 MG TABLET PO (08:24)
[2023-11-09] MEDS: Furosemide 40 MG TABLET PO ×2 (08:24→20:40)
[2023-11-09] MEDS: allopurinoL 300 MG TABLET 150 MG PO (08:25)
[2023-11-09] MEDS: Cyclobenzaprine HCl 10 MG TABLET PO ×3 (08:26→20:33)
[2023-11-09] MEDS: Sennosides/Docusate Sodium TABLET 2 TAB PO ×2 (08:26→20:33)
[2023-11-09] MEDS: guaiFENesin LA 600 MG TAB.ER.12H 1200 MG PO ×2 (08:26→20:33)
[2023-11-09] MEDS: Amiodarone HCL 200 MG TABLET 400 MG PO ×2 (08:27→20:34)
[2023-11-09] MEDS: polyethylene glycoL 3350 17 GM POWD.PACK PO (08:28)
--- NOTE | 2023-11-09 08:55 | P.PNIM_ITS ---
Subjective Subjective Date of Service: 11/09/23 Interval History: Heart rate improved overnight, currently on amio drip Still short of breath and wheezing but somewhat improved. No abd pain. Review of Systems All other system reviewed and negative Constitutional Constitutional: Reports fatigue, Reports lethargy, Reports poor appetite and Reports weakness Cardiovascular Cardiovascular: Reports dyspnea on exertion Respiratory Respiratory: Reports cough, Reports dyspnea on exertion and Reports wheezing Neurologic Neurologic: Reports weakness Endocrine Endocrine: Reports fatigue Allergic/Immunologic Allergic/Immunologic: Reports wheezing Physical Exam 2 Vital Signs: Vital Signs: Last Vital Signs Temp 97.4 F 11/09/23 07:49 Pulse 90 11/09/23 08:23 Resp 19 11/09/23 07:49 BP 150/81 H 11/09/23 08:24 Pulse Ox 93 11/09/23 07:49 O2 Del Method Nasal Cannula 11/09/23 07:49 O2 Flow Rate 2 11/09/23 07:49 BMI result Body Mass Index 42.9 Const: Other: General awake alert x3, anxious, in mild distress Neck supple no JVD. CVS regular rate rhythm, tachy regular Respiratory lungs bilateral expiratory wheeze, prolonged expiration, no respiratory distress, no rales Gastrointestinal abdomen soft, non tender, bowel sounds audible . Extremities no edema. Neuro non focal Psych appropriate affect Objective Data Active Medications Acetaminophen (Acetaminophen 325 Mg Tablet) 650 mg PO Q6H PRN PRN Reason: Pain, Mild (Pain Scale 1-3) Last Admin: 11/09/23 02:16 Dose: 650 mg Documented By: BRAD Allopurinol (Allopurinol 300 Mg Tablet) 150 mg PO DAILY [facility] Last Admin: 11/09/23 08:25 Dose: 150 mg Documented By: JAMEY Amiodarone HCl (Amiodarone Hcl 200 Mg Tablet) 400 mg PO BID [facility] Last Admin: 11/09/23 08:27 Dose: 400 mg Documented By: JAMEY Apixaban (Apixaban 5 Mg Tablet) 5 mg PO BID [facility] Last Admin: 11/09/23 07:49 Dose: Not Given Documented By: JAMEY Non-Admin Reason: Physician Held Med Levalbuterol HCl 1.25 mg/ (Ipratropium [place] 0.5 mg) 0 mg INHALE RQ4H WHILE AWAKE [facility] Last Admin: 11/09/23 07:56 Dose: Not Given Documented By: ADEOLA Non-Admin Reason: Patient Refused Cyclobenzaprine HCl (Cyclobenzaprine Hcl 10 Mg Tablet) 10 mg PO TID [facility] Last Admin: 11/09/23 08:26 Dose: 10 mg Documented By: JAMEY Digoxin (Digoxin 0.125 Mg Tablet) 0.125 mg PO Q48H [facility] Last Admin: 11/07/23 13:23 Dose: 0.125 mg Documented By: ILDA Diltiazem HCl (Diltiazem Hcl 30 Mg Tablet) 90 mg PO QID [facility]; Protocol Last Admin: 11/09/23 08:23 Dose: 90 mg Documented By: JAMEY Docusate Sodium (Docusate Sodium 100 Mg Capsule) 100 mg PO BID PRN PRN Reason: constipation Famotidine (Famotidine 20 Mg Tablet) 10 mg PO DAILY [facility] Last Admin: 11/09/23 08:24 Dose: 10 mg Documented By: JAMEY Fluticasone/Vilanterol (Fluticasone/Vilanterol 100/25 Blst.W.Dev) 1 puff INHALE RDAILY [facility] Last Admin: 11/09/23 07:56 Dose: Not Given Documented By: ADEOLA Non-Admin Reason: Patient Refused Furosemide (Furosemide 40 Mg Tablet) 40 mg PO BID [facility]; Protocol Last Admin: 11/09/23 08:24 Dose: 40 mg Documented By: JAMEY Gabapentin (Gabapentin 600 Mg Tablet) 600 mg PO TID [facility] Last Admin: 11/09/23 08:24 Dose: 600 mg Documented By: JAMEY Glucose (Glucose Gel 15 Gm Gel..Gram.) 15 gm PO Q15M PRN; Protocol PRN Reason: per Hypoglycemia Standing Ord. Guaifenesin (Guaifenesin La 600 Mg Tab.Er.12h) 1,200 mg PO BID [facility] Last Admin: 11/09/23 08:26 Dose: 1,200 mg Documented By: JAMEY Guaifenesin (Guaifenesin 200 Mg/10 Ml 10 Ml Liquid) 10 ml PO Q6H PRN PRN Reason: Cough Last Admin: 11/09/23 02:00 Dose: 10 ml Documented By: TRUDY-MILYLA Dextrose (D10) 250 mls @ 750 mls/hr IV Q15M PRN; Protocol PRN Reason: per Hypoglycemia Standing Ord. Daptomycin 907.184 mg/ Sodium (Chloride) 68.1437 mls @ 100 mls/hr IV Q24H [facility] Last Infusion: 11/08/23 13:57 Dose: Infused Documented By: ILDA Amiodarone HCl 900 mg/ Sodium (Chloride) 518 mls @ 34.533 mls/hr IVCONT .Q15H1M [facility]; Protocol Last Admin: 11/09/23 02:36 Dose: Not Given Documented By: BRAD Non-Admin Reason: half full bag Insulin Glargine (Insulin Glargine,Hum.Rec.Anlog 100 Unit/Ml 10 Ml Vial) 30 unit SUBCUT DAILY [facility] Last Admin: 11/09/23 08:17 Dose: 30 unit Documented By: JAMEY Insulin Human Lispro (Insulin Lispro 100 Unit/Ml 3 Ml Vial) 0 unit SUBCUT QIDACHS [facility]; Protocol Last Admin: 11/09/23 08:17 Dose: 6 unit Documented By: JAMEY Levalbuterol HCl (Levalbuterol Hcl 1.25 Mg/3 Ml Vial.Neb) 1.25 mg INHALE Q2H PRN PRN Reason: Shortness of Breath/Wheezing Lidocaine (Lidocaine 4 % Patch Adh..Patch) 1 patch TRANSDERMA DAILY [facility]; Protocol Last Admin: 11/08/23 08:03 Dose: 1 patch Documented By: ILDA Melatonin (Melatonin 3 Mg Tablet) 6 mg PO BEDTIME PRN PRN Reason: Insomnia Methylprednisolone Sodium Succinate (Methylprednisolone Sod Succ 40 Mg/Ml Vial) 40 mg IVPUSH Q12H [facility] Last Admin: 11/09/23 05:45 Dose: 40 mg Documented By: BRAD Morphine Sulfate (Morphine Sulfate 2 Mg/Ml Cartridge) 3 mg IVPUSH Q3H PRN; Protocol PRN Reason: severe pain Last Admin: 11/09/23 08:45 Dose: 3 mg Documented By: JAMEY Nicotine (Nicotine 14 Mg Patch.Td24) 14 mg TRANSDERMA DAILY [facility] Last Admin: 11/08/23 08:03 Dose: 14 mg Documented By: ILDA Ondansetron HCl (Ondansetron Hcl 4 Mg/2 Ml Vial) 4 mg IVPUSH Q8H PRN PRN Reason: Nausea and Vomiting Paroxetine HCl (Paroxetine Hcl 20 Mg Tablet) 20 mg PO DAILY@0900 [facility] Last Admin: 11/09/23 08:24 Dose: 20 mg Documented By: JAMEY Polyethylene Glycol (Polyethylene Glycol 3350 17 Gm Powd.Pack) 17 gm PO DAILY [facility] Last Admin: 11/09/23 08:28 Dose: 17 gm Documented By: JAMEY Senna/Docusate Sodium (Sennosides/Docusate Sodium Tablet) 2 tab PO BID [facility] Last Admin: 11/09/23 08:26 Dose: 2 tab Documented By: JAMEY Sodium Chloride (0.9 % Sodium Chloride Flush 3 Ml Syringe) 3 ml IVFLUSH QSHIFT [facility] Last Admin: 11/09/23 08:27 Dose: Not Given Documented By: JAMEY Non-Admin Reason: IV Running Labs 11/04/23 08:20 11/07/23 06:21 Labs: Laboratory Results - last 24 hr 11/08/23 11/08/23 11/08/23 10:57 15:40 20:15 POC Glucose 330 H 305 H 150 H 11/09/23 07:40 POC Glucose 224 H Assessment and Plan (1) Acute respiratory failure with hypoxia: Status: Acute (2) Atrial fibrillation with rapid ventricular response: Status: Acute Plan d8 78yo F with pAF on apixaban, COPD not on hO2, gout, HF with unknown EF, gout, DM2 presented with AMS, admitted for hypoxia due to CAP + COPD sepsis due to Enterococcus faecalis bacteremia -ID consulted, change IV piperacillin-tazobactam to daptomycin now -repeat BCx from 11/01 negative; TTE with no vegetation -Plan 28d of IV daptomycin from neg Cx, so end date of 11/30/23 pending MRI results -IV vs po abx decision pending MRI ; will need PICC if she needs IV abx AF/RVR - diltiazem IV bolus then gtt; loaded with digoxin IV 0.25 mg x2 and now on maintenance 0.125 mg PO q48h; on amiodarone PO load 400 mg bid started 11/05 -11/07 stopped dilt drip and initiated amio drip - continue apixaban - TTE 11/04: - The visually estimated ejection fraction is between 60-65%. - Normal right ventricular cavity size and systolic function. - Limited assessment of the valves. No obvious vegetation. acute hypoxic resp failure and sepsis due to CAP + COPD exac - IV methylprednisolone 60 mg q8h -> 40 mg daily; scheduled/prn nebs - weaned off O2 - IV vanco 10/30-10/31, IV ceftriaxone 10/31-11/01, IV piperacillin-tazobactam 11/01- 11/06, IV azithro 10/30-11/04 - continue Breo, guaifenesin - outpt f/u with transmission and coordination engineer Dr Diamond in 2 wk; inpt Pulm appreciated possible pancreatic mass - on CT A/P, noted to have abrupt change in size with atrophy + ductal dilation beyond pancreatic neck; also extra- and intra-hepatic biliary dilation to level of ampulla - GI consulted, MRI with/without contrast today; acute metabolic encephalopathy due to hypoglycemia - resolved gout - continue allopurinol chronic HF with unknown EF - continue maintenance furosemide chronic pain - continue cyclobenzaprine + gabapentin, added lidocaine patch + prn morphine DM2 - basal-bolus insulin morbid obesity - diet/exercise counseling VTE ppx - apixaban dispo - eventual STR In my clinical judgment, the patient requires continued inpatient hospitalization for the following reasons: IV ABX + steroids, bacteremia, rate control, resp distress Quality Stroke Does the patient have a stroke diagnosis?: No VTE Prior VTE?: No VTE Risk Level:: Medical - moderate - high VTE Device Contraindication: Treatment Not Indicated VTE Drug Contraindication: N/A - Med Ordered
[2023-11-09] MEDS: gadobutroL 10 ML VIAL IVPUSH (10:12)
--- NOTE | 2023-11-09 10:22 | MHC.CM.PN ---
Per ROUNDS discussion, Patient is not yet medically cleared for dc (still wheezing, MRI today); PT is recommending STR and CM will continue to follow.
[2023-11-09 11:28] LABS: Glucose, Whole Blood 103 mg/dL (60-115)
[2023-11-09] MEDS: Lidocaine 4 % Patch ADH..PATCH 1 PATCH TRANSDERMA (11:47)
[2023-11-09] MEDS: Nicotine 14 MG PATCH.TD24 TRANSDERMA (11:47)
[2023-11-09] MEDS: levalbuterol HCL 1.25 MG, Ipratropium Bromide 0.5 MG INHALE ×2 (12:10→15:49)
[2023-11-09] MEDS: Digoxin 0.125 MG TABLET PO (14:28)
--- NOTE | 2023-11-09 15:21 | P.PNID_ITS ---
Subjective Subjective Date of Service: 11/08/23 Critical Care Time (minutes): 15 Comment: she has still some back and abdominal discomfort general and to left Objective Data Labs 11/04/23 08:20 11/07/23 06:21 Labs: Laboratory Results - last 24 hr 11/08/23 11/08/23 11/09/23 15:40 20:15 07:40 POC Glucose 305 H 150 H 224 H 11/09/23 11:24 POC Glucose 103 Microbiology Microbiology Results: Microbiology 11/02/23 13:18 Blood - Venous Blood Culture - Final No growth after 5 days. 11/02/23 13:18 Blood - Venous Blood Culture - Final No growth after 5 days. 10/30/23 19:59 Blood - Venous Blood Culture - Final No growth after 5 days. 10/30/23 19:11 Blood - Venous Blood Culture - Final Enterococcus faecalis Physical Exam 2 Vital Signs: Vital Signs: Last Vital Signs Temp 97.4 F 11/09/23 07:49 Pulse 78 11/09/23 14:25 Resp 18 11/09/23 12:13 BP 133/78 11/09/23 14:25 Pulse Ox 93 11/09/23 07:49 O2 Del Method Nasal Cannula 11/09/23 07:49 O2 Flow Rate 2 11/09/23 07:49 BMI result Body Mass Index 42.9 Const: General: cooperative HEENT: Head: Yes normal to inspection Face and sinus: Yes normal facial exam Mouth: Normal oral and palatal mucosa present Teeth and gingiva: d entition normal Eyes: General: appearance normal, both eyes and all related structures P upils: Equal, round and reactive pupils present Resp: Effort & Inspection: normal respiratory effort Cardio: Rate: regular rate Rhythm: regular rhythm GI: Palpation (GI): Soft to palpation and nontender : General: Yes no CVA tenderness Back/Spine/Pelvis: Back: no CVA tenderness Skin: General skin exam: no rashes or lesions noted Neuro: General: moves all extremities Cranial nerves: Yes Equal, round and reactive pupils present Extrem: General: Yes normal to inspection Psych: Appearance: grossly normal Assessment and Plan Assessment and plan (1) Bacteremia due to Enterococcus: Status: Acute Plan Enterococcus faecalis bacteremia Possibly due to pancreatic mass/abnormality,MRI abdomen pending If abnormality pancreas finish one month IV Daptomycin on 11/29. If no abnormality on MRI culture may even be contaminant since 1/2 blood cultures but would give Augmentin for 14 days. Time Spent With Patient Time: Total time managing care of this patient today ____ minutes.
[2023-11-09 15:54] LABS: Glucose, Whole Blood 63 mg/dL (60-115)
[2023-11-09 20:43] LABS: Glucose, Whole Blood 436 mg/dL (60-115)
[2023-11-10] VITALS (17 sets, daily range): BP systolic 119–149; BP diastolic 78–93; PULSE 85–111; RESP 19–26; TEMP 36.3–36.6; O2SAT 91–96
[2023-11-10 07:41] LABS: MANUAL DIFF FLAG NO
[2023-11-10 07:48] LABS: Basophils Percent Auto 0.1 % (0-2); Eosinophils Percent Auto 0.1 % (0-4); Hematocrit 37.9 % (37.0-47.0); Hemoglobin 11.9 g/dl (12.0-16.0); Imm Gran Abs Auto 0.07 X10*3/uL (0.00-0.03); Imm Gran Pct Auto 0.5 % (0.0-0.4); Lymphocytes Absolute Auto 0.7 X10*3/uL (1.2-4.9); Lymphocytes Percent Auto 4.8 % (20-40); Mean Corpuscular HGB Conc 31.4 g/dl (31.0-35.0); Mean Corpuscular Hemoglobin 31.7 pg (27.0-33.0); Mean Corpuscular Volume 101.1 fL (80.0-98.0); Monocytes Absolute Auto 0.6 X10*3/uL (0.1-1.2); Monocytes Percent Auto 4.5 % (2-11); Neutrophils Absolute Auto 12.4 x10*3/uL (2.0-8.3); Red Blood Count 3.75 X10*6/uL (4.20-5.50); Red Cell Distribution Width 13.2 % (11.0-16.0); White Blood Count 13.8 X10*3/uL (4.8-10.8)
[2023-11-10 08:03] LABS: Anion Gap 11 (12-20); Blood Urea Nitrogen 36 mg/dL (9-16); Calcium 9.3 mg/dL (8.4-10.2); Chloride 92 mmol/L (96-108); Creatinine Clr Calc Pharmacy 71.2; Estimated Glomerular Filt Rate > 60; Glucose Random 136 mg/dL (60-115); Potassium 3.1 mmol/L (3.3-5.1); Sodium 144 mmol/L (135-145)
[2023-11-10 08:05] LABS: Carbon Dioxide 44 mmol/L (22-29)
[2023-11-10 08:08] LABS: Glucose, Whole Blood 163 mg/dL (60-115)
[2023-11-10] MEDS: polyethylene glycoL 3350 17 GM POWD.PACK PO (08:27)
[2023-11-10] MEDS: Amiodarone HCL 200 MG TABLET 400 MG PO ×2 (08:27→22:23)
[2023-11-10] MEDS: PARoxetine HCL 20 MG TABLET PO (08:27)
[2023-11-10] MEDS: Furosemide 40 MG TABLET PO (08:27)
[2023-11-10] MEDS: Nicotine 14 MG PATCH.TD24 TRANSDERMA (08:27)
[2023-11-10] MEDS: Famotidine 20 MG TABLET 10 MG PO (08:27)
[2023-11-10] MEDS: guaiFENesin LA 600 MG TAB.ER.12H 1200 MG PO ×2 (08:28→22:23)
[2023-11-10] MEDS: Cyclobenzaprine HCl 10 MG TABLET PO ×3 (08:28→22:24)
[2023-11-10] MEDS: Gabapentin 600 MG TABLET PO ×2 (08:28→13:59)
[2023-11-10] MEDS: dilTIAZem HCL 30 MG TABLET 90 MG PO ×4 (08:28→22:24)
[2023-11-10] MEDS: allopurinoL 300 MG TABLET 150 MG PO (08:28)
[2023-11-10] MEDS: methylPREDNISolone Sod Succ 40 MG/ML VIAL IVPUSH (08:29)
[2023-11-10] MEDS: Insulin Glargine,Hum.rec.anlog 100 UNIT/ML 10 ML VIAL 30 UNIT SUBCUT (08:29)
[2023-11-10] MEDS: Morphine Sulfate 2 MG/ML CARTRIDGE 3 MG IVPUSH ×2 (08:29→13:59)
[2023-11-10] MEDS: 0.9 % Sodium Chloride Flush 3 ML SYRINGE IVFLUSH ×3 (08:30→22:28)
[2023-11-10] MEDS: Insulin Lispro 100 UNIT/ML 3 ML VIAL SUBCUT ×4 (08:30→22:22)
[2023-11-10] MEDS: Lidocaine 4 % Patch ADH..PATCH 1 PATCH TRANSDERMA (08:31)
[2023-11-10] MEDS: Sennosides/Docusate Sodium TABLET 2 TAB PO ×2 (08:43→22:23)
[2023-11-10 08:57] LABS: Mean Platelet Volume 11.1 fL (9.4-12.3); Platelet Count 104 X10*3/uL (160-400)
--- NOTE | 2023-11-10 09:53 | PM.PNCARD ---
Subjective Subjective Date of Service: 11/10/23 Interval history: Patient states she is okay. Shortness of breath is just about the same. No clear-cut cardiac symptoms. Review of Systems Review of Systems Yes all other systems are reviewed and are negative Constitutional: Reports as per HPI and Reports no additional constitutional complaints Eyes: Reports as per HPI and Denies no additional eye complaints Denies system reviewed and no additional complaints, except as documented and Reports as per HPI Cardiovascular: Reports as per HPI, Reports no additional cardiovascular complaints, Denies acrocyanosis, Denies cool extremities, Denies chest pain, Denies leg edema, Denies lightheadedness, Denies palpitations and Reports dyspnea Respiratory: Reports as per HPI, Denies no additional respiratory complaints and Reports dyspnea Gastrointestinal: Reports as per HPI and Denies no additional gastrointestinal complaints Genitourinary: Reports as per HPI Musculoskeletal: Reports no additional musculoskeletal complaints and Reports as per HPI Skin/Breast: Reports system reviewed and no additional complaints, except as docu Reports system reviewed and no additional complaints, except as documented and Reports as per HPI Psychiatric: Reports no additional psychiatric complaints and Reports as per HPI Endocrine: Reports no additional endocrine complaints, Reports as per HPI and Denies palpitations Hematologic/Lymphatic: Reports no additional hematologic/lymphatic complaints and Reports as per HPI Allergic/Immunologic: Reports no additional allergic/immunologic complaints and Reports as per HPI Physical Exam Vital Signs: Last Vital Signs Temp 97.3 F 11/10/23 08:00 Pulse 111 H 11/10/23 08:28 Resp 19 11/10/23 08:29 BP 119/91 H 11/10/23 08:28 Pulse Ox 93 11/10/23 08:00 O2 Del Method Nasal Cannula 11/10/23 08:00 O2 Flow Rate 3 11/10/23 08:00 BMI result Body Mass Index 42.9 Const General: comfortable and no acute distress Orientation/consciousness: patient oriented x3 HEENT Other: Unremarkable Head: Yes normal to inspection Neck Neck: Yes normal visual inspection Chest Chest palpation & inspection: normal inspection of the chest Resp Auscultation: wheezes and diminished lung sounds Cardio Palpation: normal PMI Heart sounds: S1 normal heart sound present, S2 normal heart sound present, no gallops, no murmurs and no rubs GI Palpation (GI): Soft to palpation Back/Spine/Pelvis Other: unremarkable Skin General skin exam: no rashes or lesions noted Neuro General: patient oriented x3 Extrem General: Yes normal to inspection Psych Mental Status: mental status grossly normal Objective Labs and Meds 11/10/23 07:25 11/10/23 07:25 Lab results: Laboratory Results - last 24 hr 11/09/23 11/09/23 11/09/23 11:24 15:51 20:39 WBC RBC Hgb Hct MCV MCH MCHC RDW Plt Count MPV Immature Gran % (Auto) Neut % (Auto) Lymph % (Auto) [place] % (Auto) Eos % (Auto) Baso % (Auto) Lymph # (Auto) [place] # (Auto) Eos # (Auto) Baso # (Auto) Abs Immat Gran (auto) Absolute Neuts (auto) Absolute Nucleated RBC Nucleated RBC % (auto) Sodium Potassium Chloride Carbon Dioxide Anion Gap BUN Creatinine Estim Creat Clear Calc Estimated GFR POC Glucose 103 63 436 H* Random Glucose Calcium 11/10/23 11/10/23 07:25 07:42 WBC 13.8 H RBC 3.75 L Hgb 11.9 L Hct 37.9 MCV 101.1 H MCH 31.7 MCHC 31.4 RDW 13.2 Plt Count 104 L D MPV 11.1 Immature Gran % (Auto) 0.5 H Neut % (Auto) 90.0 H Lymph % (Auto) 4.8 L [place] % (Auto) 4.5 Eos % (Auto) 0.1 Baso % (Auto) 0.1 Lymph # (Auto) 0.7 L [place] # (Auto) 0.6 Eos # (Auto) 0.0 Baso # (Auto) 0.0 Abs Immat Gran (auto) 0.07 H Absolute Neuts (auto) 12.4 H Absolute Nucleated RBC 0.000 Nucleated RBC % (auto) 0.0 Sodium 144 Potassium 3.1 L Chloride 92 L Carbon Dioxide 44 H* D Anion Gap 11 L BUN 36 H Creatinine 0.79 Estim Creat Clear Calc 71.2 Estimated GFR > 60 POC Glucose 163 H Random Glucose 136 H Calcium 9.3 Imaging Radiologist's impression: Impressions Abdomen MRI 11/09/23 10:07 IMPRESSION: 1.0 cm signal dropout within the main pancreatic duct in the neck of the pancreas. There is changing caliber of the pancreatic duct with distal atrophy of the pancreatic parenchyma and tortuosity and dilatation of the duct measuring up to 6 mm. An underlying stricture cannot be excluded. Distended gallbladder with sludge and small stones. The common duct measures up to 1.4 cm at the mimi hepatis without intraductal filling defects. Moderate intrahepatic biliary ductal dilatation. This may represent biliary dyskinesia. Correlation with nuclear medicine HIDA scan may be considered. Marked bladder distention. Progress Note: A&P Assessment and plan (1) Acute respiratory failure with hypoxia: Status: Acute (2) Atrial fibrillation with rapid ventricular response: Status: Acute (3) Atrial tachycardia: Status: Acute (4) COPD exacerbation: Status: Acute Plan Overall, suspected COPD exacerbation accompanied by atrial arrhythmias including atrial fibrillation, atrial tachycardia, sinus tachycardia/frequent PACs. Currently, heart rate is about 100-110/Min with frequent PACs. No clear evidence of atrial fibrillation. She has been on diltiazem drip as well as amiodarone drip. Currently she is on oral regimen with both. Also on small dose of digoxin. Otherwise, on anticoagulation. From the pulmonary standpoint, she still sounds quite wheezy and suspect a markedly diminished respiratory reserve. Hence likely that she is going to have some degree of sinus tachycardia and atrial ectopy and other atrial arrhythmias. As there is no other choice, keep her on amiodarone in spite of having baseline pulmonary disease. Diltiazem at the current dose but we can eventually consolidate that to a long-acting preparation. Time Spent With Patient Time: Total time managing care of this patient today ____ minutes. Progress Note: Quality Stroke Does the patient have a stroke diagnosis?: No Procedures Date of Service Date of Service: 11/10/23
[2023-11-10 11:04] LABS: Glucose, Whole Blood 200 mg/dL (60-115)
--- NOTE | 2023-11-10 14:53 | P.PNIM_ITS ---
Subjective Subjective Date of Service: 11/11/23 Interval History: Being followed for At. fib with rapid ventricular rate, sepsis due to Enterococcus faecalis bacteremia, acute hypoxic respiratory failure due to community-acquired pneumonia and COPD. Complaining of persistent cough, and shortness of breath, unable to bring up phlegm, no fevers, no chills, at times agitated,vague ,refused multiple updraft treatments, requesting for fluids Does not feel herself, feels off. Review of Systems All other system reviewed and negative Physical Exam 2 Vital Signs: Vital Signs: Last Vital Signs Temp 97.3 F 11/10/23 08:00 Pulse 102 H 11/10/23 14:22 Resp 22 H 11/10/23 14:22 BP 119/91 H 11/10/23 08:28 Pulse Ox 92 11/10/23 14:22 O2 Del Method Room Air 11/10/23 14:22 O2 Flow Rate 2 11/10/23 13:13 Oxygen Flow Rate 2 11/10/23 07:30 BMI result Body Mass Index 42.9 Const: Other: Gen: Awake alert in no respiratory distress ,noted to have intermittent congested cough HEENT: sclera anicteric, moist mucus membranes Neck: supple Lungs: Bilateral coarse congested breath sound, expiratory wheezing Heart: regular, no murmurs Abd: soft, non-tender, non-distended, bowel sounds audible Ext: no edema Skin: warm/well-perfused Neuro: alert and oriented , aware of place, person at times vague , no focal findings Psych: anxious/agitated Objective Data Active Medications Acetaminophen (Acetaminophen 325 Mg Tablet) 650 mg PO Q6H PRN PRN Reason: Pain, Mild (Pain Scale 1-3) Last Admin: 11/09/23 02:16 Dose: 650 mg Documented By: BRAD Allopurinol (Allopurinol 300 Mg Tablet) 150 mg PO DAILY [facility] Last Admin: 11/10/23 08:28 Dose: 150 mg Documented By: LOUISA Amiodarone HCl (Amiodarone Hcl 200 Mg Tablet) 400 mg PO BID [facility] Last Admin: 11/10/23 08:27 Dose: 400 mg Documented By: LOUISA Apixaban (Apixaban 5 Mg Tablet) 5 mg PO BID [facility] Last Admin: 11/10/23 08:30 Dose: Not Given Documented By: LOUISA Non-Admin Reason: Physician Held Med Levalbuterol HCl 1.25 mg/ (Ipratropium [place] 0.5 mg) 0 mg INHALE RQ4H WHILE AWAKE [facility] Last Admin: 11/10/23 11:22 Dose: Not Given Documented By: TOMAS Non-Admin Reason: Patient Refused Cyclobenzaprine HCl (Cyclobenzaprine Hcl 10 Mg Tablet) 10 mg PO TID [facility] Last Admin: 11/10/23 13:58 Dose: 10 mg Documented By: LOUISA Digoxin (Digoxin 0.125 Mg Tablet) 0.125 mg PO Q48H [facility] Last Admin: 11/09/23 14:28 Dose: 0.125 mg Documented By: JAMEY Diltiazem HCl (Diltiazem Hcl 30 Mg Tablet) 90 mg PO QID [facility]; Protocol Last Admin: 11/10/23 12:05 Dose: 90 mg Documented By: LOUISA Docusate Sodium (Docusate Sodium 100 Mg Capsule) 100 mg PO BID PRN PRN Reason: constipation Famotidine (Famotidine 20 Mg Tablet) 10 mg PO DAILY [facility] Last Admin: 11/10/23 08:27 Dose: 10 mg Documented By: LOUISA Fluticasone/Vilanterol (Fluticasone/Vilanterol 100/25 Blst.W.Dev) 1 puff INHALE RDAILY [facility] Last Admin: 11/10/23 08:05 Dose: Not Given Documented By: TOMAS Non-Admin Reason: Patient Refused Furosemide (Furosemide 40 Mg Tablet) 40 mg PO BID [facility]; Protocol Last Admin: 11/10/23 08:27 Dose: 40 mg Documented By: LOUISA Gabapentin (Gabapentin 600 Mg Tablet) 600 mg PO TID [facility] Last Admin: 11/10/23 13:59 Dose: 600 mg Documented By: LOUISA Glucose (Glucose Gel 15 Gm Gel..Gram.) 15 gm PO Q15M PRN; Protocol PRN Reason: per Hypoglycemia Standing Ord. Guaifenesin (Guaifenesin La 600 Mg Tab.Er.12h) 1,200 mg PO BID [facility] Last Admin: 11/10/23 08:28 Dose: 1,200 mg Documented By: LOUISA Guaifenesin (Guaifenesin 200 Mg/10 Ml 10 Ml Liquid) 10 ml PO Q6H PRN PRN Reason: Cough Last Admin: 11/09/23 02:00 Dose: 10 ml Documented By: BRAD Dextrose (D10) 250 mls @ 750 mls/hr IV Q15M PRN; Protocol PRN Reason: per Hypoglycemia Standing Ord. Daptomycin 907.184 mg/ Sodium (Chloride) 68.1437 mls @ 100 mls/hr IV Q24H [facility] Last Admin: 11/10/23 13:59 Dose: 100 mls/hr Documented By: LOUISA Insulin Glargine (Insulin Glargine,Hum.Rec.Anlog 100 Unit/Ml 10 Ml Vial) 30 unit SUBCUT DAILY [facility] Last Admin: 11/10/23 08:29 Dose: 30 unit Documented By: LOUISA Insulin Human Lispro (Insulin Lispro 100 Unit/Ml 3 Ml Vial) 0 unit SUBCUT QIDACHS [facility]; Protocol Last Admin: 11/10/23 12:06 Dose: 4 unit Documented By: LOUISA Levalbuterol HCl (Levalbuterol Hcl 1.25 Mg/3 Ml Vial.Neb) 1.25 mg INHALE Q2H PRN PRN Reason: Shortness of Breath/Wheezing Lidocaine (Lidocaine 4 % Patch Adh..Patch) 1 patch TRANSDERMA DAILY [facility]; Protocol Last Admin: 11/10/23 08:31 Dose: 1 patch Documented By: LOUISA Melatonin (Melatonin 3 Mg Tablet) 6 mg PO BEDTIME PRN PRN Reason: Insomnia Methylprednisolone Sodium Succinate (Methylprednisolone Sod Succ 40 Mg/Ml Vial) 40 mg IVPUSH DAILY [facility] Last Admin: 11/10/23 08:29 Dose: 40 mg Documented By: LOUISA Morphine Sulfate (Morphine Sulfate 2 Mg/Ml Cartridge) 3 mg IVPUSH Q3H PRN; Protocol PRN Reason: severe pain Last Admin: 11/10/23 13:59 Dose: 3 mg Documented By: LOUISA Nicotine (Nicotine 14 Mg Patch.Td24) 14 mg TRANSDERMA DAILY [facility] Last Admin: 11/10/23 08:27 Dose: 14 mg Documented By: LOUISA Ondansetron HCl (Ondansetron Hcl 4 Mg/2 Ml Vial) 4 mg IVPUSH Q8H PRN PRN Reason: Nausea and Vomiting Paroxetine HCl (Paroxetine Hcl 20 Mg Tablet) 20 mg PO DAILY@0900 [facility] Last Admin: 11/10/23 08:27 Dose: 20 mg Documented By: LOUISA Polyethylene Glycol (Polyethylene Glycol 3350 17 Gm Powd.Pack) 17 gm PO DAILY [facility] Last Admin: 11/10/23 08:27 Dose: 17 gm Documented By: LOUISA Senna/Docusate Sodium (Sennosides/Docusate Sodium Tablet) 2 tab PO BID [facility] Last Admin: 11/10/23 08:43 Dose: 2 tab Documented By: LOUISA Sodium Chloride (0.9 % Sodium Chloride Flush 3 Ml Syringe) 3 ml IVFLUSH QSHIFT [facility] Last Admin: 11/10/23 14:00 Dose: 3 ml Documented By: LOUISA Labs 11/11/23 06:19 11/11/23 10:30 Labs: Laboratory Results - last 24 hr 11/09/23 11/09/23 11/10/23 15:51 20:39 07:25 MCV 101.1 H MCH 31.7 MCHC 31.4 RDW 13.2 Plt Count 104 L D MPV 11.1 Immature Gran % (Auto) 0.5 H Neut % (Auto) 90.0 H Lymph % (Auto) 4.8 L [place] % (Auto) 4.5 Eos % (Auto) 0.1 Baso % (Auto) 0.1 Lymph # (Auto) 0.7 L [place] # (Auto) 0.6 Eos # (Auto) 0.0 Baso # (Auto) 0.0 Abs Immat Gran (auto) 0.07 H Absolute Neuts (auto) 12.4 H Absolute Nucleated RBC 0.000 Nucleated RBC % (auto) 0.0 Anion Gap 11 L Estim Creat Clear Calc 71.2 Estimated GFR > 60 POC Glucose 63 436 H* Random Glucose 136 H Calcium 9.3 11/10/23 11/10/23 07:42 10:59 MCV MCH MCHC RDW Plt Count MPV Immature Gran % (Auto) Neut % (Auto) Lymph % (Auto) [place] % (Auto) Eos % (Auto) Baso % (Auto) Lymph # (Auto) [place] # (Auto) Eos # (Auto) Baso # (Auto) Abs Immat Gran (auto) Absolute Neuts (auto) Absolute Nucleated RBC Nucleated RBC % (auto) Anion Gap Estim Creat Clear Calc Estimated GFR POC Glucose 163 H 200 H Random Glucose Calcium Assessment and Plan (1) Acute respiratory failure with hypoxia: Status: Acute (2) Atrial fibrillation with rapid ventricular response: Status: Acute Plan 78yo F with pAF on apixaban, COPD not on hO2, gout, HF with unknown EF, gout, DM2 presented with AMS, admitted for hypoxia due to CAP + COPD Sepsis due to Enterococcus faecalis bacteremia -case discussed with ID will continue IV daptomycin for total 4 weeks end date 11/30/2023 -repeat BCx from 11/01 negative; TTE with no vegetation AF/RVR - ventricular rate improved currently heart rate fluctuating between 90- 110 s/p diltiazem IV bolus then gtt; loaded with digoxin IV 0.25 mg x2 and now on maintenance 0.125 mg PO q48h; status post amiodarone drip now on amiodarone PO load 400 mg bid started 11/05 - continue apixaban - echo 11/04: Showed EF 60-65%., normal right ventricular cavity size and systolic function, no obvious vegetation noted acute hypoxic resp failure and sepsis due to CAP + COPD exac - persistent shortness of breath and congested cough, oxygenation improved, on IV steroids 40mg daily ,continue scheduled and as needed nebulizers - s/p IV vanco 10/30-10/31, IV ceftriaxone 10/31-11/01, IV piperacillin-tazobactam 11/01-11/06, IV azithro 10/30-11/04 - continue Breo, guaifenesin - outpt f/u with on site services specialist Dr Diamond in 2 wk; inpt Pulm appreciated Possible pancreatic mass - on abdominal and pelvic CT scan noted to have abrupt change in size with atrophy + ductal dilation beyond pancreatic neck; also extra- and intra-hepatic biliary dilation to level of ampulla - GI consulted, MRI with/without contrast obtained that showed changing caliber of pancreatic duct with distal atrophy of pancreatic parenchyma and tortuosity and dilatation of the duct and underlying stricture can not be excluded,No pancreatic mass noted, distended gallbladder with sludge and small stones common bile duct 1.4 cm without intraductal filling defects, moderate intrahepatic biliary ductal dilatation may represent biliary dyskinesia Patient with no abdominal pain, normal LFTs Case discussed with GI since patient is asymptomatic they recommended no aggressive invasive procedures or surgery if bacteremic than possible cholecystostomy acute metabolic encephalopathy due to hypoglycemia - noted to have persistent mild confusion will obtain ABGs to rule out CO2 narcosis, minimize sedatives and narcotics, follow clinical course Alkalosis likely contraction alkalosis no history of CO2 retention, will hold Lasix, follow BMP, Diamox Acute hypokalemia- likely due to diuretics will replace and follow labs gout - no acute flare, continue allopurinol chronic HF with unknown EF - on maintenance furosemide, hold Lasix appears euvolemic follow BMP chronic pain - continue cyclobenzaprine, reduced dose of gabapentin, lidocaine patch + prn morphine DM2 - elevated blood sugars likely due Lantus 30 units and insulin sliding scale (at home on 25 units Lantus at a.m. and pre meal insulin 15 units t.i.d..) morbid obesity- diet/exercise counseling VTE ppx - apixaban dispo- eventual STR In my clinical judgment, the patient requires continued inpatient hospitalization for the following reasons: IV ABX + steroids, bacteremia, rate control, resp distress Quality Stroke Does the patient have a stroke diagnosis?: No VTE Prior VTE?: No VTE Risk Level:: Medical - moderate - high VTE Device Contraindication: Treatment Not Indicated VTE Drug Contraindication: N/A - Med Ordered
[2023-11-10] MEDS: Potassium Chloride ER 20 MEQ TAB.ER.PRT 40 MEQ PO (15:09)
[2023-11-10] MEDS: acetaZOLAMIDE 250 MG TABLET 500 MG PO ×2 (15:09→22:23)
[2023-11-10] MEDS: levalbuterol HCL 1.25 MG, Ipratropium Bromide 0.5 MG INHALE ×2 (15:35→19:27)
[2023-11-10 16:00] LABS: Glucose, Whole Blood 247 mg/dL (60-115)
[2023-11-10 19:18] LABS: Venous Blood Gas Refer to POC result
[2023-11-10 19:20] LABS: VBG Base Excess 19.9 mmol/L; VBG HCO3 42 mmol/L (22-26); VBG pCO2 37 mmHg; VBG pH 7.65 (7.32-7.43); VBG pO2 159 mmHg
--- NOTE | 2023-11-10 19:49 | PM.EVENT ---
Event Note Date of Service: 11/10/23 Event Note: 7:18 PM - Contacted to notify patient has pH of 7.65. Furosemide has been discontinued and therapy with Diamox started. Will also provide tx with NS 500 ml bolus and decreased dose of IV steroids. Will check urine chloride, BMP, Mg, renin, aldosterone, serum pH and digoxin level. Time Spent With Patient Time: Total time managing care of this patient today ____ minutes.
[2023-11-10 20:19] LABS: Digoxin 0.7 ng/mL (0.8-2.0)
[2023-11-10] MEDS: 0.9 % Sodium Chloride 500 ML IV (20:28)
[2023-11-10 21:11] LABS: Glucose, Whole Blood 195 mg/dL (60-115)
[2023-11-10] MEDS: Apixaban 5 MG TABLET PO (22:23)
[2023-11-10] MEDS: Gabapentin 600 MG TABLET 400 MG PO (22:26)
[2023-11-11] VITALS (17 sets, daily range): BP systolic 118–141; BP diastolic 46–70; PULSE 67–108; RESP 18–24; TEMP 36.2–36.8; O2SAT 92–96
[2023-11-11 00:03] LABS: VBG HCO3 38 mmol/L (22-26); VBG pCO2 43 mmHg; VBG pH 7.55 (7.32-7.43); VBG pO2 109 mmHg
[2023-11-11 00:05] LABS: Venous Blood Gas Refer to POC result
[2023-11-11 00:15] LABS: Glucose, Whole Blood 265 mg/dL (60-115)
[2023-11-11 00:31] LABS: Anion Gap 16 (12-20); Blood Urea Nitrogen 44 mg/dL (9-16); Calcium 8.8 mg/dL (8.4-10.2); Carbon Dioxide 32 mmol/L (22-29); Chloride 93 mmol/L (96-108); Creatinine Clr Calc Pharmacy 47.7; Estimated Glomerular Filt Rate 44; Glucose Random 392 mg/dL (60-115); Magnesium 2.4 mg/dL (1.6-2.6); Potassium 3.3 mmol/L (3.3-5.1); Sodium 138 mmol/L (135-145)
[2023-11-11] MEDS: Morphine Sulfate 2 MG/ML CARTRIDGE 3 MG IVPUSH ×2 (01:32→12:33)
[2023-11-11] MEDS: Insulin Lispro 100 UNIT/ML 3 ML VIAL 10 UNIT SUBCUT (01:33)
[2023-11-11] MEDS: guaiFENesin 200 MG/10 ML 10 ML LIQUID PO (01:37)
[2023-11-11] MEDS: Albuterol/Iprat 2.5/0.5MG 3 ML AMPUL.NEB INHALE ×5 (02:09→19:45)
[2023-11-11 06:37] LABS: Hematocrit 36.2 % (37.0-47.0); Hemoglobin 11.2 g/dl (12.0-16.0); Mean Corpuscular HGB Conc 30.9 g/dl (31.0-35.0); Mean Corpuscular Hemoglobin 31.5 pg (27.0-33.0); Mean Corpuscular Volume 101.7 fL (80.0-98.0); Red Blood Count 3.56 X10*6/uL (4.20-5.50); Red Cell Distribution Width 13.4 % (11.0-16.0); White Blood Count 14.7 X10*3/uL (4.8-10.8)
[2023-11-11 06:38] LABS: Venous Blood Gas Refer to POC result
[2023-11-11 06:41] LABS: VBG Base Excess 13.1 mmol/L; VBG HCO3 32 mmol/L (22-26); VBG pCO2 26 mmHg; VBG pO2 110 mmHg
[2023-11-11 07:24] LABS: Glucose, Whole Blood 89 mg/dL (60-115)
[2023-11-11 07:34] LABS: Mean Platelet Volume 12.4 fL (9.4-12.3)
[2023-11-11 07:35] LABS: Platelet Count 70 X10*3/uL (160-400)
[2023-11-11] MEDS: Fluticasone/Vilanterol 100/25 BLST.W.DEV 1 PUFF INHALE (08:19)
[2023-11-11 08:29] LABS: ABG Base Excess 12.5 mmol/L; ABG HCO3 37 mmol/L (22-26); ABG pCO2 50 mmHg (32-45); ABG pH 7.48 (7.35-7.45); ABG pO2 71 mmHg (83-108)
[2023-11-11] MEDS: Sennosides/Docusate Sodium TABLET 2 TAB PO ×2 (09:07→21:35)
[2023-11-11] MEDS: allopurinoL 300 MG TABLET 150 MG PO (09:07)
[2023-11-11] MEDS: Amiodarone HCL 200 MG TABLET 400 MG PO (09:08)
[2023-11-11] MEDS: methylPREDNISolone Sod Succ 40 MG/ML VIAL 20 MG IVPUSH (09:08)
[2023-11-11] MEDS: dilTIAZem HCL 30 MG TABLET 90 MG PO ×4 (09:08→21:35)
[2023-11-11] MEDS: PARoxetine HCL 20 MG TABLET PO (09:09)
[2023-11-11] MEDS: 0.9 % Sodium Chloride Flush 3 ML SYRINGE IVFLUSH ×3 (09:09→21:47)
[2023-11-11] MEDS: Lidocaine 4 % Patch ADH..PATCH 1 PATCH TRANSDERMA (09:10)
[2023-11-11] MEDS: Nicotine 14 MG PATCH.TD24 TRANSDERMA (09:10)
[2023-11-11 09:19] LABS: Glucose, Whole Blood 119 mg/dL (60-115)
[2023-11-11] MEDS: polyethylene glycoL 3350 17 GM POWD.PACK PO (09:39)
[2023-11-11] MEDS: Insulin Glargine,Hum.rec.anlog 100 UNIT/ML 10 ML VIAL 30 UNIT SUBCUT (09:40)
[2023-11-11] MEDS: guaiFENesin LA 600 MG TAB.ER.12H 1200 MG PO ×2 (09:40→21:35)
[2023-11-11 10:51] LABS: Glucose, Whole Blood 274 mg/dL (60-115)
[2023-11-11 11:13] LABS: Anion Gap 15 (12-20); Blood Urea Nitrogen 41 mg/dL (9-16); Calcium 9.1 mg/dL (8.4-10.2); Carbon Dioxide 30 mmol/L (22-29); Chloride 98 mmol/L (96-108); Creatinine Clr Calc Pharmacy 57.4; Estimated Glomerular Filt Rate 55; Glucose Random 251 mg/dL (60-115); Potassium 4.1 mmol/L (3.3-5.1); Sodium 139 mmol/L (135-145)
--- NOTE | 2023-11-11 11:27 | PM.PNCARD ---
Subjective Subjective Date of Service: 11/11/23 Interval history: She seems somewhat sleepy but otherwise no clear-cut symptoms. Breathing is just about the same. Review of Systems Review of Systems Yes all other systems are reviewed and are negative Constitutional: Reports as per HPI and Reports no additional constitutional complaints Eyes: Reports as per HPI and Denies no additional eye complaints Denies system reviewed and no additional complaints, except as documented and Reports as per HPI Cardiovascular: Reports as per HPI, Reports no additional cardiovascular complaints, Denies acrocyanosis, Denies cool extremities, Denies chest pain, Denies leg edema, Denies lightheadedness, Denies palpitations and Reports dyspnea Respiratory: Reports as per HPI, Denies no additional respiratory complaints and Reports dyspnea Gastrointestinal: Reports as per HPI and Denies no additional gastrointestinal complaints Musculoskeletal: Reports no additional musculoskeletal complaints, Reports as per HPI and Reports back pain Skin/Breast: Reports system reviewed and no additional complaints, except as docu Reports system reviewed and no additional complaints, except as documented and Reports as per HPI Psychiatric: Reports no additional psychiatric complaints and Reports as per HPI Endocrine: Reports no additional endocrine complaints, Reports as per HPI and Denies palpitations Hematologic/Lymphatic: Reports no additional hematologic/lymphatic complaints and Reports as per HPI Allergic/Immunologic: Reports no additional allergic/immunologic complaints and Reports as per HPI Physical Exam Vital Signs: Last Vital Signs Temp 97.3 F 11/11/23 11:20 Pulse 90 11/11/23 11:20 Resp 20 11/11/23 11:20 BP 141/60 H 11/11/23 11:20 Pulse Ox 93 11/11/23 11:20 O2 Del Method Room Air 11/11/23 11:20 O2 Flow Rate 2 11/10/23 13:13 Oxygen Flow Rate 2 11/10/23 07:30 BMI result Body Mass Index 42.9 Const General: comfortable, no acute distress, in distress, ill appearing and tired appearing Orientation/consciousness: patient oriented x3 HEENT Other: Unremarkable Head: Yes normal to inspection Neck Neck: Yes normal visual inspection Chest Chest palpation & inspection: normal inspection of the chest Resp Other: Bilateral wheezing Auscultation: wheezes, breath sounds absent and diminished lung sounds Cardio Other: Difficult to auscultate as patient is crying and screaming. Palpation: normal PMI Heart sounds: S1 normal heart sound present, S2 normal heart sound present, no gallops, no murmurs and no rubs GI Palpation (GI): Soft to palpation Back/Spine/Pelvis Other: unremarkable Skin General skin exam: no rashes or lesions noted Neuro General: patient oriented x3 Extrem General: Yes normal to inspection Psych Mental Status: mental status grossly normal Objective Labs and Meds 11/11/23 06:19 11/11/23 10:30 Lab results: Laboratory Results - last 24 hr 11/10/23 11/10/23 11/10/23 15:47 19:09 19:57 WBC RBC Hgb Hct MCV MCH MCHC RDW Plt Count MPV Absolute Nucleated RBC Nucleated RBC % (auto) O2 Saturation ABG pH at Pt Temp ABG pCO2 at Pt Temp ABG pO2 at Pt Temp ABG HCO3 ABG Base Excess (Actual) VBG pH 7.65 H* VBG pCO2 37 VBG pO2 159 VBG HCO3 42 H VBG O2 Saturation 99.0 VBG Base Excess 19.9 Sodium Potassium Chloride Carbon Dioxide Anion Gap BUN Creatinine Estim Creat Clear Calc Estimated GFR POC Glucose 247 H Random Glucose Calcium Magnesium Digoxin 0.7 L 11/10/23 11/10/23 11/10/23 20:57 22:15 23:38 WBC RBC Hgb Hct MCV MCH MCHC RDW Plt Count MPV Absolute Nucleated RBC Nucleated RBC % (auto) O2 Saturation ABG pH at Pt Temp ABG pCO2 at Pt Temp ABG pO2 at Pt Temp ABG HCO3 ABG Base Excess (Actual) VBG pH VBG pCO2 VBG pO2 VBG HCO3 VBG O2 Saturation VBG Base Excess Sodium 138 Potassium 3.3 Chloride 93 L Carbon Dioxide 32 H Anion Gap 16 BUN 44 H Creatinine 1.18 Estim Creat Clear Calc 47.7 Estimated GFR 44 POC Glucose 195 H 265 H Random Glucose 392 H* Calcium 8.8 Magnesium 2.4 Digoxin 11/10/23 11/11/23 11/11/23 23:55 06:19 06:24 WBC 14.7 H RBC 3.56 L Hgb 11.2 L Hct 36.2 L MCV 101.7 H MCH 31.5 MCHC 30.9 L RDW 13.4 Plt Count 70 L D MPV 12.4 H Absolute Nucleated RBC 0.000 Nucleated RBC % (auto) 0.0 O2 Saturation ABG pH at Pt Temp ABG pCO2 at Pt Temp ABG pO2 at Pt Temp ABG HCO3 ABG Base Excess (Actual) VBG pH 7.55 H 7.70 H* VBG pCO2 43 26 VBG pO2 109 110 VBG HCO3 38 H 32 H VBG O2 Saturation 100.0 99.0 VBG Base Excess 15.0 13.1 Sodium Potassium Chloride Carbon Dioxide Anion Gap BUN Creatinine Estim Creat Clear Calc Estimated GFR POC Glucose Random Glucose Calcium Magnesium Digoxin 11/11/23 11/11/23 11/11/23 07:12 08:21 09:15 WBC RBC Hgb Hct MCV MCH MCHC RDW Plt Count MPV Absolute Nucleated RBC Nucleated RBC % (auto) O2 Saturation 95.0 ABG pH at Pt Temp 7.48 H ABG pCO2 at Pt Temp 50 H ABG pO2 at Pt Temp 71 L ABG HCO3 37 H ABG Base Excess (Actual) 12.5 VBG pH VBG pCO2 VBG pO2 VBG HCO3 VBG O2 Saturation VBG Base Excess Sodium Potassium Chloride Carbon Dioxide Anion Gap BUN Creatinine Estim Creat Clear Calc Estimated GFR POC Glucose 89 119 H Random Glucose Calcium Magnesium Digoxin 11/11/23 11/11/23 10:30 10:44 WBC RBC Hgb Hct MCV MCH MCHC RDW Plt Count MPV Absolute Nucleated RBC Nucleated RBC % (auto) O2 Saturation ABG pH at Pt Temp ABG pCO2 at Pt Temp ABG pO2 at Pt Temp ABG HCO3 ABG Base Excess (Actual) VBG pH VBG pCO2 VBG pO2 VBG HCO3 VBG O2 Saturation VBG Base Excess Sodium 139 Potassium 4.1 D Chloride 98 Carbon Dioxide 30 H Anion Gap 15 BUN 41 H Creatinine 0.98 Estim Creat Clear Calc 57.4 Estimated GFR 55 POC Glucose 274 H Random Glucose 251 H Calcium 9.1 Magnesium Digoxin Imaging Radiologist's impression: Impressions Chest X-Ray 11/11/23 00:30 IMPRESSION: Low lung volumes with persistent partial collapse of the right lower lobe and linear atelectasis in the left lung base. No new airspace consolidation. Progress Note: A&P Assessment and plan (1) Acute respiratory failure with hypoxia: Status: Acute (2) Atrial fibrillation with rapid ventricular response: Status: Acute (3) Atrial tachycardia: Status: Acute (4) COPD exacerbation: Status: Acute Plan Severe COPD exacerbation, atrial arrhythmias, atrial tachycardia, atrial fibrillation, PACs. Currently, she is sinus rhythm on telemetry with occasional PACs. We can decrease amiodarone to just 200 mg daily. We can continue diltiazem. Stop digoxin. Continue anticoagulation. Pulmonary status is still of concern. Lung sounds are quite abnormal. Need to discuss goals of care as well as code status. Discussed with . Time Spent With Patient Time: Total time managing care of this patient today ____ minutes. Progress Note: Quality Stroke Does the patient have a stroke diagnosis?: No Procedures Date of Service Date of Service: 11/11/23
[2023-11-11] MEDS: Insulin Lispro 100 UNIT/ML 3 ML VIAL SUBCUT ×3 (12:32→21:36)
[2023-11-11 13:19] LABS: ABG Refer to POC result
[2023-11-11] MEDS: Gabapentin 600 MG TABLET 300 MG PO ×2 (14:22→21:36)
--- NOTE | 2023-11-11 15:21 | HO.PM.IMPN ---
Subjective Subjective Date of Service: 11/12/23 Interval History: Events from last night reviewed patient VBG showed pH of 7.65 repeat 7.7 patient is somnolent easily arousable awake, alert to time place and person, denies fever, no chills, denies headache, no dizziness, repeat ABGs improved pH 7.48, pCO2 50 Offers no acute complaints. Review of Systems All other system reviewed and negative Physical Exam Vital Signs: Vital Signs: Last Vital Signs Temp 97.3 F 11/11/23 11:20 Pulse 90 11/11/23 15:10 Resp 20 11/11/23 15:10 BP 141/60 H 11/11/23 12:33 Pulse Ox 93 11/11/23 11:20 O2 Del Method Room Air 11/11/23 11:20 O2 Flow Rate 2 11/10/23 13:13 Oxygen Flow Rate 2 11/10/23 07:30 BMI result Body Mass Index 42.9 Const: Other: Gen: somnolent this morning arousable, answering questions appropriately in no respiratory distress HEENT: sclera anicteric, moist mucus membranes Neck: supple Lungs: Bilateral coarse congested breath sound, expiratory wheezing Heart: regular, no murmurs Abd: soft, non-tender, non-distended, bowel sounds audible Ext: no edema/left wrist small lesion with minimal bleed Skin: warm/well-perfused/bilateral lower and upper extremity ecchymosis Neuro: at times vague , no focal findings Psych: anxious/agitated Objective Data Active Medications Acetaminophen (Acetaminophen 325 Mg Tablet) 975 mg PO Q6H PRN PRN Reason: mild pain, headache or fever Albuterol Sulfate (Albuterol Sulfate (0.083%) 2.5 Mg/3 Ml Vial.Neb) 2.5 mg INHALE Q2H PRN PRN Reason: Shortness of Breath/Wheezing Albuterol/Ipratropium (Albuterol/Iprat 2.5/0.5mg 3 Ml Ampul.Neb) 3 ml INHALE RQ4H WHILE AWAKE [facility] Last Admin: 11/11/23 15:04 Dose: 3 ml Documented By: TOMAS Allopurinol (Allopurinol 300 Mg Tablet) 150 mg PO DAILY [facility] Last Admin: 11/11/23 09:07 Dose: 150 mg Documented By: LOUISA Amiodarone HCl (Amiodarone Hcl 200 Mg Tablet) 400 mg PO DAILY [facility] Cyclobenzaprine HCl (Cyclobenzaprine Hcl 10 Mg Tablet) 10 mg PO TID [facility] Last Admin: 11/11/23 14:18 Dose: Not Given Documented By: LOUISA Non-Admin Reason: Physician Held Med Diltiazem HCl (Diltiazem Hcl 30 Mg Tablet) 90 mg PO QID [facility]; Protocol Last Admin: 11/11/23 12:33 Dose: 90 mg Documented By: LOUISA Docusate Sodium (Docusate Sodium 100 Mg Capsule) 100 mg PO BID PRN PRN Reason: constipation Fluticasone/Vilanterol (Fluticasone/Vilanterol 100/25 Blst.W.Dev) 1 puff INHALE RDAILY [facility] Last Admin: 11/11/23 08:19 Dose: 1 puff Documented By: TOMAS Gabapentin (Gabapentin 600 Mg Tablet) 300 mg PO TID [facility] Last Admin: 11/11/23 14:22 Dose: 300 mg Documented By: LOUISA Glucose (Glucose Gel 15 Gm Gel..Gram.) 15 gm PO Q15M PRN; Protocol PRN Reason: per Hypoglycemia Standing Ord. Guaifenesin (Guaifenesin La 600 Mg Tab.Er.12h) 1,200 mg PO BID [facility] Last Admin: 11/11/23 09:40 Dose: 1,200 mg Documented By: LOUISA Guaifenesin (Guaifenesin 200 Mg/10 Ml 10 Ml Liquid) 10 ml PO Q6H PRN PRN Reason: Cough Last Admin: 11/11/23 01:37 Dose: 10 ml Documented By: ANTOIC Dextrose (D10) 250 mls @ 750 mls/hr IV Q15M PRN; Protocol PRN Reason: per Hypoglycemia Standing Ord. Daptomycin 907.184 mg/ Sodium (Chloride) 68.1437 mls @ 100 mls/hr IV Q24H [facility] Last Infusion: 11/11/23 15:04 Dose: Infused Documented By: LOUISA Insulin Glargine (Insulin Glargine,Hum.Rec.Anlog 100 Unit/Ml 10 Ml Vial) 30 unit SUBCUT DAILY [facility] Last Admin: 11/11/23 09:40 Dose: 30 unit Documented By: LOUISA Insulin Human Lispro (Insulin Lispro 100 Unit/Ml 3 Ml Vial) 0 unit SUBCUT QIDACHS [facility]; Protocol Last Admin: 11/11/23 12:32 Dose: 9 unit Documented By: LOUISA Lidocaine (Lidocaine 4 % Patch Adh..Patch) 1 patch TRANSDERMA DAILY [facility]; Protocol Last Admin: 11/11/23 09:10 Dose: 1 patch Documented By: LOUISA Melatonin (Melatonin 3 Mg Tablet) 6 mg PO BEDTIME PRN PRN Reason: Insomnia Morphine Sulfate (Morphine Sulfate 2 Mg/Ml Cartridge) 3 mg IVPUSH Q3H PRN; Protocol PRN Reason: severe pain Last Admin: 11/11/23 12:33 Dose: 3 mg Documented By: LOUISA Nicotine (Nicotine 14 Mg Patch.Td24) 14 mg TRANSDERMA DAILY [facility] Last Admin: 11/11/23 09:10 Dose: 14 mg Documented By: LOUISA Ondansetron HCl (Ondansetron Hcl 4 Mg/2 Ml Vial) 4 mg IVPUSH Q8H PRN PRN Reason: Nausea and Vomiting Paroxetine HCl (Paroxetine Hcl 20 Mg Tablet) 20 mg PO DAILY@0900 [facility] Last Admin: 11/11/23 09:09 Dose: 20 mg Documented By: LOUISA Polyethylene Glycol (Polyethylene Glycol 3350 17 Gm Powd.Pack) 17 gm PO DAILY [facility] Last Admin: 11/11/23 09:39 Dose: 17 gm Documented By: LOUISA Potassium Chloride (Potassium Chloride Packet 20 Meq Packet) 40 meq PO DAILY [facility] Last Admin: 11/11/23 05:51 Dose: Not Given Documented By: ANTOIC Non-Admin Reason: pt. unable to drink, very drowsy Senna/Docusate Sodium (Sennosides/Docusate Sodium Tablet) 2 tab PO BID [facility] Last Admin: 11/11/23 09:07 Dose: 2 tab Documented By: LOUISA Sodium Chloride (0.9 % Sodium Chloride Flush 3 Ml Syringe) 3 ml IVFLUSH QSHIFT [facility] Last Admin: 11/11/23 14:23 Dose: 3 ml Documented By: LOUISA Labs 11/12/23 07:47 11/12/23 07:47 Labs: Laboratory Results - last 24 hr 11/10/23 11/10/23 11/10/23 15:47 19:09 19:57 MCV MCH MCHC RDW Plt Count MPV Absolute Nucleated RBC Nucleated RBC % (auto) O2 Saturation ABG pH at Pt Temp ABG pCO2 at Pt Temp ABG pO2 at Pt Temp ABG HCO3 ABG Base Excess (Actual) VBG pH 7.65 H* VBG pCO2 37 VBG pO2 159 VBG HCO3 42 H VBG O2 Saturation 99.0 VBG Base Excess 19.9 Anion Gap Estim Creat Clear Calc Estimated GFR POC Glucose 247 H Random Glucose Calcium Magnesium Digoxin 0.7 L 11/10/23 11/10/23 11/10/23 20:57 22:15 23:38 MCV MCH MCHC RDW Plt Count MPV Absolute Nucleated RBC Nucleated RBC % (auto) O2 Saturation ABG pH at Pt Temp ABG pCO2 at Pt Temp ABG pO2 at Pt Temp ABG HCO3 ABG Base Excess (Actual) VBG pH VBG pCO2 VBG pO2 VBG HCO3 VBG O2 Saturation VBG Base Excess Anion Gap 16 Estim Creat Clear Calc 47.7 Estimated GFR 44 POC Glucose 195 H 265 H Random Glucose 392 H* Calcium 8.8 Magnesium 2.4 Digoxin 11/10/23 11/11/23 11/11/23 23:55 06:19 06:24 MCV 101.7 H MCH 31.5 MCHC 30.9 L RDW 13.4 Plt Count 70 L D MPV 12.4 H Absolute Nucleated RBC 0.000 Nucleated RBC % (auto) 0.0 O2 Saturation ABG pH at Pt Temp ABG pCO2 at Pt Temp ABG pO2 at Pt Temp ABG HCO3 ABG Base Excess (Actual) VBG pH 7.55 H 7.70 H* VBG pCO2 43 26 VBG pO2 109 110 VBG HCO3 38 H 32 H VBG O2 Saturation 100.0 99.0 VBG Base Excess 15.0 13.1 Anion Gap Estim Creat Clear Calc Estimated GFR POC Glucose Random Glucose Calcium Magnesium Digoxin 11/11/23 11/11/23 11/11/23 07:12 08:21 09:15 MCV MCH MCHC RDW Plt Count MPV Absolute Nucleated RBC Nucleated RBC % (auto) O2 Saturation 95.0 ABG pH at Pt Temp 7.48 H ABG pCO2 at Pt Temp 50 H ABG pO2 at Pt Temp 71 L ABG HCO3 37 H ABG Base Excess (Actual) 12.5 VBG pH VBG pCO2 VBG pO2 VBG HCO3 VBG O2 Saturation VBG Base Excess Anion Gap Estim Creat Clear Calc Estimated GFR POC Glucose 89 119 H Random Glucose Calcium Magnesium Digoxin 11/11/23 11/11/23 10:30 10:44 MCV MCH MCHC RDW Plt Count MPV Absolute Nucleated RBC Nucleated RBC % (auto) O2 Saturation ABG pH at Pt Temp ABG pCO2 at Pt Temp ABG pO2 at Pt Temp ABG HCO3 ABG Base Excess (Actual) VBG pH VBG pCO2 VBG pO2 VBG HCO3 VBG O2 Saturation VBG Base Excess Anion Gap 15 Estim Creat Clear Calc 57.4 Estimated GFR 55 POC Glucose 274 H Random Glucose 251 H Calcium 9.1 Magnesium Digoxin Assessment and Plan (1) Acute respiratory failure with hypoxia: Status: Acute (2) Atrial fibrillation with rapid ventricular response: Status: Acute Plan 78yo F with pAF on apixaban, COPD not on hO2, gout, HF with unknown EF, gout, DM2 presented with AMS, admitted for hypoxia due to CAP + COPD Sepsis due to Enterococcus faecalis bacteremia -case discussed with ID will continue IV daptomycin for total 4 weeks end date 11/30/2023 to cover for biliary source/ -repeat BCx from 11/01 negative; TTE with no vegetation AF/RVR - ventricular rate improved currently heart rate fluctuating between 90- 110 s/p diltiazem IV bolus then gtt; loaded with digoxin IV 0.25 mg x2 and now on maintenance 0.125 mg PO q48h; status post amiodarone drip now on amiodarone PO load 400 mg bid started 11/05 - continue apixaban - echo 11/04: Showed EF 60-65%., normal right ventricular cavity size and systolic function, no obvious vegetation noted -case discussed with Cardiology will lower dose of amiodarone to 200 mg daily starting tomorrow, will DC digoxin Acute thrombocytopenia likely drug-induced will DC digoxin, Pepcid, follow CBC acute hypoxic resp failure and sepsis due to CAP + COPD exac, chronic alkalosis with pH around 7.5 - persistent shortness of breath and congested cough, COPD exacerbation resolved will DC IV steroids,continue scheduled and as needed nebulizers to help clear secretions - finished course of antibiotics (s/p IV vanco 10/30-10/31, IV ceftriaxone 10/31-11/01, IV piperacillin-tazobactam 11/01-11/06, IV azithro 10/30-11/04) - continue Breo, guaifenesin - case discussed with pulmonology, pH improved from 7.7 to 7.5 baseline, -minimize sedatives will decrease dose of Flexeril to 5 mg t.i.d., decrease dose of gabapentin to 300 mg t.i.d. Possible pancreatic mass - on abdominal and pelvic CT scan noted to have abrupt change in size with atrophy + ductal dilation beyond pancreatic neck; also extra- and intra-hepatic biliary dilation to level of ampulla - GI consulted, MRI with/without contrast obtained that showed changing caliber of pancreatic duct with distal atrophy of pancreatic parenchyma and tortuosity and dilatation of the duct and underlying stricture can not be excluded,No pancreatic mass noted, distended gallbladder with sludge and small stones common bile duct 1.4 cm without intraductal filling defects, moderate intrahepatic biliary ductal dilatation may represent biliary dyskinesia Patient with no abdominal pain, normal LFTs Case discussed with GI since patient is asymptomatic they recommended no aggressive invasive procedures or surgery if bacteremic than possible cholecystostomy. acute metabolic encephalopathy due to hypoglycemia -resolved Alkalosis likely contraction alkalosis no history of CO2 retention, Lasix held, bicarb trending down . Acute hypokalemia- repleted and normalized gout - no acute flare, continue allopurinol chronic HF with unknown EF - on maintenance furosemide, hold Lasix appears euvolemic follow BMP chronic pain - continue cyclobenzaprine, reduced dose of gabapentin, lidocaine patch + prn morphine DM2 - elevated blood sugars likely due Lantus 30 units and insulin sliding scale (at home on 25 units Lantus at a.m. and pre meal insulin 15 units t.i.d..) morbid obesity- diet/exercise counseling VTE ppx - apixaban dispo- eventual STR Code status discussed with patient regarding intubation, she has poor understanding, called daughter left message In my clinical judgment, the patient requires continued inpatient hospitalization for the following reasons: IV ABX + steroids, bacteremia, rate control, resp distress Quality Stroke Does the patient have a stroke diagnosis?: No VTE Prior VTE?: No VTE Risk Level:: Medical - moderate - high VTE Device Contraindication: Treatment Not Indicated VTE Drug Contraindication: N/A - Med Ordered
[2023-11-11 16:34] LABS: Glucose, Whole Blood 318 mg/dL (60-115)
[2023-11-11 20:48] LABS: Glucose, Whole Blood 282 mg/dL (60-115)
[2023-11-11] MEDS: Cyclobenzaprine HCl 5 MG TABLET PO (21:35)
[2023-11-12] VITALS (13 sets, daily range): BP systolic 116–153; BP diastolic 55–89; PULSE 66–107; RESP 17–20; TEMP 36.3–37.1; O2SAT 91–97
[2023-11-12] MEDS: Morphine Sulfate 2 MG/ML CARTRIDGE 3 MG IVPUSH ×3 (06:06→20:07)
[2023-11-12 07:23] LABS: Glucose, Whole Blood 145 mg/dL (60-115)
[2023-11-12 08:05] LABS: Hematocrit 34.9 % (37.0-47.0); Hemoglobin 11.2 g/dl (12.0-16.0); Mean Corpuscular HGB Conc 32.1 g/dl (31.0-35.0); Mean Corpuscular Volume 99.7 fL (80.0-98.0); Mean Platelet Volume 10.8 fL (9.4-12.3); Platelet Count 100 X10*3/uL (160-400); Red Cell Distribution Width 13.4 % (11.0-16.0); White Blood Count 10.8 X10*3/uL (4.8-10.8)
[2023-11-12 08:18] LABS: Anion Gap 12 (12-20); Blood Urea Nitrogen 33 mg/dL (9-16); Calcium 8.8 mg/dL (8.4-10.2); Carbon Dioxide 29 mmol/L (22-29); Chloride 103 mmol/L (96-108); Creatinine Clr Calc Pharmacy 75.1; Estimated Glomerular Filt Rate > 60; Glucose Random 121 mg/dL (60-115); Potassium 3.6 mmol/L (3.3-5.1); Sodium 140 mmol/L (135-145)
[2023-11-12] MEDS: Sennosides/Docusate Sodium TABLET 2 TAB PO ×2 (08:19→20:05)
[2023-11-12] MEDS: allopurinoL 300 MG TABLET 150 MG PO (08:20)
[2023-11-12] MEDS: PARoxetine HCL 20 MG TABLET PO (08:20)
[2023-11-12] MEDS: guaiFENesin LA 600 MG TAB.ER.12H 1200 MG PO ×2 (08:20→20:07)
[2023-11-12] MEDS: Amiodarone HCL 200 MG TABLET 400 MG PO (08:20)
[2023-11-12] MEDS: Gabapentin 600 MG TABLET 300 MG PO ×3 (08:20→20:06)
[2023-11-12] MEDS: dilTIAZem HCL 30 MG TABLET 90 MG PO ×4 (08:21→20:05)
[2023-11-12] MEDS: Cyclobenzaprine HCl 5 MG TABLET PO ×3 (08:21→20:07)
[2023-11-12] MEDS: Nicotine 14 MG PATCH.TD24 TRANSDERMA (08:22)
[2023-11-12] MEDS: 0.9 % Sodium Chloride Flush 3 ML SYRINGE IVFLUSH ×3 (08:22→20:13)
[2023-11-12] MEDS: Potassium Chloride Packet 20 MEQ PACKET 40 MEQ PO (08:22)
[2023-11-12] MEDS: Lidocaine 4 % Patch ADH..PATCH 1 PATCH TRANSDERMA (08:22)
[2023-11-12] MEDS: Insulin Glargine,Hum.rec.anlog 100 UNIT/ML 10 ML VIAL 30 UNIT SUBCUT (08:22)
[2023-11-12] MEDS: polyethylene glycoL 3350 17 GM POWD.PACK PO (08:23)
[2023-11-12] MEDS: Insulin Lispro 100 UNIT/ML 3 ML VIAL SUBCUT ×4 (08:32→22:10)
[2023-11-12] MEDS: Acetylcysteine 10 % 400 MG/4 ML VIAL INHALE ×2 (08:53→19:48)
[2023-11-12] MEDS: Albuterol/Iprat 2.5/0.5MG 3 ML AMPUL.NEB INHALE ×4 (08:53→19:48)
[2023-11-12] MEDS: Fluticasone/Vilanterol 100/25 BLST.W.DEV 1 PUFF INHALE (08:53)
[2023-11-12 11:06] LABS: Glucose, Whole Blood 238 mg/dL (60-115)
--- NOTE | 2023-11-12 12:17 | P.PNPL_ITS ---
Subjective Subjective Date of Service: 11/12/23 Interval history: The patient was seen and examined. Still has significant chest congestion. Difficult to clear the secretions. Some difficulty breathing. Still oxygen dependent. Still on the daptomycin to treat her for the bacteremia. Her imaging studies still show persistent right lower lobe atelectasis. CT scan also personally reviewed seems to have an area of consolidation. I will see any foreign bodies obstructing the airway. She does have risk for aspiration. Objective Data Labs 11/12/23 07:47 11/12/23 07:47 Labs: Laboratory Results - last 24 hr 11/11/23 11/11/23 11/12/23 16:30 20:38 07:09 WBC RBC Hgb Hct MCV MCH MCHC RDW Plt Count MPV Absolute Nucleated RBC Nucleated RBC % (auto) Sodium Potassium Chloride Carbon Dioxide Anion Gap BUN Creatinine Estim Creat Clear Calc Estimated GFR POC Glucose 318 H 282 H 145 H Random Glucose Calcium 11/12/23 11/12/23 07:47 10:57 WBC 10.8 RBC 3.50 L Hgb 11.2 L Hct 34.9 L MCV 99.7 H MCH 32.0 MCHC 32.1 RDW 13.4 Plt Count 100 L D MPV 10.8 Absolute Nucleated RBC 0.000 Nucleated RBC % (auto) 0.0 Sodium 140 Potassium 3.6 Chloride 103 Carbon Dioxide 29 Anion Gap 12 BUN 33 H Creatinine 0.75 Estim Creat Clear Calc 75.1 Estimated GFR > 60 POC Glucose 238 H Random Glucose 121 H Calcium 8.8 Microbiology Microbiology Results: Microbiology 11/02/23 13:18 Blood - Venous Blood Culture - Final No growth after 5 days. 11/02/23 13:18 Blood - Venous Blood Culture - Final No growth after 5 days. 10/30/23 19:59 Blood - Venous Blood Culture - Final No growth after 5 days. 10/30/23 19:11 Blood - Venous Blood Culture - Final Enterococcus faecalis Review of Systems Constitutional: Reports fatigue, Denies fever(s) and Reports weakness Reports dysphagia Cardiovascular: Reports pedal edema and Reports dyspnea Respiratory: Reports cough, Reports excessive phlegm production, Reports dyspnea and Reports wheezing Gastrointestinal: Reports dysphagia Musculoskeletal: Reports myalgias Reports weakness Endocrine: Reports fatigue Allergic/Immunologic: Reports wheezing Physical Exam 2 Vital Signs: Vital Signs: Last Vital Signs Temp 97.8 F 06/03/24 11:32 Pulse 107 H 11/12/23 11:32 Resp 20 11/12/23 11:32 BP 137/57 L 11/12/23 11:32 Pulse Ox 95 11/12/23 11:32 O2 Del Method Room Air 11/12/23 11:32 O2 Flow Rate 2 11/10/23 13:13 Oxygen Flow Rate 2 11/10/23 07:30 BMI result Body Mass Index 42.9 Const: General: comfortable, no acute distress, in distress, ill appearing and tired appearing Orientation/consciousness: patient oriented x3 HEENT: Other: Unremarkable Head: Yes normal to inspection Neck: Neck: Yes normal visual inspection Chest: Chest palpation & inspection: normal inspection of the chest Resp: Other: Bilateral wheezing Auscultation: rhonchi, wheezes, breath sounds absent and diminished lung sounds Cardio: Other: Difficult to auscultate as patient is crying and screaming. Palpation: normal PMI Heart sounds: S1 normal heart sound present and S2 normal heart sound present GI: Palpation (GI): Soft to palpation Back/Spine/Pelvis: Other: unremarkable Skin: General skin exam: no rashes or lesions noted Neuro: General: patient oriented x3 Extrem: General: Yes normal to inspection Psych: Mental Status: mental status grossly normal Procedures Date of Service Date of Service: 11/12/23 Assessment and Plan Assessment and plan (1) Acute respiratory failure with hypoxia: Status: Acute (2) COPD exacerbation: Status: Acute (3) Pneumonia: Status: Acute (4) Atelectasis: Status: Acute Plan start Mucomyst BID x 3 days continue albuterol nebs CPT with acapella valve oxygen to keep pox>90% sputum culture chlorhexadine mouth wash Time Spent With Patient Time: Total time managing care of this patient today ____ minutes. Progress Note: Quality Stroke Does the patient have a stroke diagnosis?: No
--- NOTE | 2023-11-12 15:58 | P.PNIM_ITS ---
Subjective Subjective Date of Service: 11/12/23 Interval History: Being followed for COPD/AFib with RVR Patient more awake, alert this morning, eating breakfast, offers no acute complaints continued to have congested cough, no fevers, no chills complain of mouth discomfort, no acute events overnight stable oxygenation.. Review of Systems All other system reviewed and negative. Physical Exam 2 Vital Signs: Vital Signs: Last Vital Signs Temp 97.6 F 11/12/23 15:36 Pulse 66 11/12/23 15:36 Resp 20 11/12/23 15:36 BP 116/55 L 11/12/23 15:36 Pulse Ox 94 11/12/23 15:36 O2 Del Method Room Air 11/12/23 15:36 O2 Flow Rate 2 11/10/23 13:13 Oxygen Flow Rate 2 11/10/23 07:30 BMI result Body Mass Index 42.9 Const: Other: Gen: Awake alert in no respiratory distress ,noted to have intermittent congested cough HEENT: sclera anicteric, thick coating and white spots on tongue Neck: supple Lungs: Bilateral coarse congested breath sound,no wheezing Heart: regular, no murmurs Abd: soft, non-tender, non-distended, bowel sounds audible Ext: no edema Skin: warm/well-perfused/bilateral upper and lower extremity ecchymosis, no bleeding Neuro: alert and oriented , aware of place, person at times vague , no focal findings Psych: anxious, no agitation Objective Data Active Medications Acetaminophen (Acetaminophen 325 Mg Tablet) 975 mg PO Q6H PRN PRN Reason: mild pain, headache or fever Acetylcysteine (Acetylcysteine 10 % 400 Mg/4 Ml Vial) 400 mg INHALE RBID [facility] Last Admin: 11/12/23 08:53 Dose: 400 mg Documented By: TOMAS Albuterol Sulfate (Albuterol Sulfate (0.083%) 2.5 Mg/3 Ml Vial.Neb) 2.5 mg INHALE Q2H PRN PRN Reason: Shortness of Breath/Wheezing Albuterol/Ipratropium (Albuterol/Iprat 2.5/0.5mg 3 Ml Ampul.Neb) 3 ml INHALE RQ4H WHILE AWAKE [facility] Last Admin: 11/12/23 15:07 Dose: 3 ml Documented By: TOMAS Allopurinol (Allopurinol 300 Mg Tablet) 150 mg PO DAILY [facility] Last Admin: 11/12/23 08:20 Dose: 150 mg Documented By: NEW Amiodarone HCl (Amiodarone Hcl 200 Mg Tablet) 200 mg PO DAILY [facility] Apixaban (Apixaban 5 Mg Tablet) 5 mg PO BID [facility] Chlorhexidine Gluconate (Chlorhexidine Gluc Oral Rinse 15 Ml Mouthwash) 15 ml BUCCAL BID [facility] Cyclobenzaprine HCl (Cyclobenzaprine Hcl 5 Mg Tablet) 5 mg PO TID [facility] Last Admin: 11/12/23 08:21 Dose: 5 mg Documented By: NEW Diltiazem HCl (Diltiazem Hcl 30 Mg Tablet) 90 mg PO QID [facility]; Protocol Last Admin: 11/12/23 12:37 Dose: 90 mg Documented By: NEW Docusate Sodium (Docusate Sodium 100 Mg Capsule) 100 mg PO BID PRN PRN Reason: constipation Fluticasone/Vilanterol (Fluticasone/Vilanterol 100/25 Blst.W.Dev) 1 puff INHALE RDAILY [facility] Last Admin: 11/12/23 08:53 Dose: 1 puff Documented By: TOMAS Gabapentin (Gabapentin 600 Mg Tablet) 300 mg PO TID [facility] Last Admin: 11/12/23 08:20 Dose: 300 mg Documented By: NEW Glucose (Glucose Gel 15 Gm Gel..Gram.) 15 gm PO Q15M PRN; Protocol PRN Reason: per Hypoglycemia Standing Ord. Guaifenesin (Guaifenesin La 600 Mg Tab.Er.12h) 1,200 mg PO BID [facility] Last Admin: 11/12/23 08:20 Dose: 1,200 mg Documented By: NEW Guaifenesin (Guaifenesin 200 Mg/10 Ml 10 Ml Liquid) 10 ml PO Q6H PRN PRN Reason: Cough Last Admin: 11/11/23 01:37 Dose: 10 ml Documented By: ANTOIC Dextrose (D10) 250 mls @ 750 mls/hr IV Q15M PRN; Protocol PRN Reason: per Hypoglycemia Standing Ord. Daptomycin 907.184 mg/ Sodium (Chloride) 68.1437 mls @ 100 mls/hr IV Q24H [facility] Last Infusion: 11/12/23 13:30 Dose: Infused Documented By: NEW Insulin Glargine (Insulin Glargine,Hum.Rec.Anlog 100 Unit/Ml 10 Ml Vial) 30 unit SUBCUT DAILY [facility] Last Admin: 11/12/23 08:22 Dose: 30 unit Documented By: NEW Insulin Human Lispro (Insulin Lispro 100 Unit/Ml 3 Ml Vial) 0 unit SUBCUT QIDACHS [facility]; Protocol Last Admin: 11/12/23 11:14 Dose: 6 unit Documented By: NEW Lidocaine (Lidocaine 4 % Patch Adh..Patch) 1 patch TRANSDERMA DAILY [facility]; Protocol Last Admin: 11/12/23 08:22 Dose: 1 patch Documented By: NEW Melatonin (Melatonin 3 Mg Tablet) 6 mg PO BEDTIME PRN PRN Reason: Insomnia Morphine Sulfate (Morphine Sulfate 2 Mg/Ml Cartridge) 3 mg IVPUSH Q3H PRN; Protocol PRN Reason: severe pain Last Admin: 11/12/23 11:02 Dose: 3 mg Documented By: NEW Nicotine (Nicotine 14 Mg Patch.Td24) 14 mg TRANSDERMA DAILY [facility] Last Admin: 11/12/23 08:22 Dose: 14 mg Documented By: NEW Ondansetron HCl (Ondansetron Hcl 4 Mg/2 Ml Vial) 4 mg IVPUSH Q8H PRN PRN Reason: Nausea and Vomiting Paroxetine HCl (Paroxetine Hcl 20 Mg Tablet) 20 mg PO DAILY@0900 [facility] Last Admin: 11/12/23 08:20 Dose: 20 mg Documented By: NEW Polyethylene Glycol (Polyethylene Glycol 3350 17 Gm Powd.Pack) 17 gm PO DAILY [facility] Last Admin: 11/12/23 08:23 Dose: 17 gm Documented By: NEW Potassium Chloride (Potassium Chloride Packet 20 Meq Packet) 40 meq PO DAILY [facility] Last Admin: 11/12/23 08:22 Dose: 40 meq Documented By: NEW Senna/Docusate Sodium (Sennosides/Docusate Sodium Tablet) 2 tab PO BID [facility] Last Admin: 11/12/23 08:19 Dose: 2 tab Documented By: NEW Sodium Chloride (0.9 % Sodium Chloride Flush 3 Ml Syringe) 3 ml IVFLUSH QSHIFT [facility] Last Admin: 11/12/23 08:22 Dose: 3 ml Documented By: NEW Labs 11/12/23 07:47 11/12/23 07:47 Labs: Laboratory Results - last 24 hr 11/11/23 11/11/23 11/12/23 16:30 20:38 07:09 MCV MCH MCHC RDW Plt Count MPV Absolute Nucleated RBC Nucleated RBC % (auto) Anion Gap Estim Creat Clear Calc Estimated GFR POC Glucose 318 H 282 H 145 H Random Glucose Calcium 11/12/23 11/12/23 07:47 10:57 MCV 99.7 H MCH 32.0 MCHC 32.1 RDW 13.4 Plt Count 100 L D MPV 10.8 Absolute Nucleated RBC 0.000 Nucleated RBC % (auto) 0.0 Anion Gap 12 Estim Creat Clear Calc 75.1 Estimated GFR > 60 POC Glucose 238 H Random Glucose 121 H Calcium 8.8 Assessment and Plan (1) Acute respiratory failure with hypoxia: Status: Acute (2) Atrial fibrillation with rapid ventricular response: Status: Acute Plan 78yo F with pAF on apixaban, COPD not on hO2, gout, HF with unknown EF, gout, DM2 presented with AMS, admitted for hypoxia due to CAP + COPD Sepsis due to Enterococcus faecalis bacteremia -continue IV daptomycin for total 2 weeks to cover for biliary source /starting from 1st day of IV Zosyn 11/01 end date 11/15 -repeat BCx from 11/01 negative; TTE with no vegetation Oral Candidiasis will add nystatin swish and spit, recommend to rinse mouth after Breo AF/RVR Now in normal sinus rhythm s/p diltiazem IV bolus then gtt; loaded with digoxin IV 0.25 mg x2 , status post amiodarone drip now on amiodarone PO 200 mg daily Eliquis held briefly due to low platelet count, ecchymosis and bleeding, since platelet improved, no further bleeding, will resume Eliquis 5 mg b.i.d. echo 11/04: Showed EF 60-65%., normal right ventricular cavity size and systolic function, no obvious vegetation noted Acute thrombocytopenia likely drug-induced , digoxin and Pepcid discontinued platelets improved to 100,000 , follow CBC acute hypoxic resp failure and sepsis due to CAP + COPD exac, chronic alkalosis with pH around 7.5 persistent shortness of breath and congested cough,cxr 11/10 showed low lung volumes with persistent partial collapse of the right lower lobe and linear atelectasis in the left lung base, no new airspace disease COPD exacerbation resolved ,s/p IV steroids,continue scheduled and as needed nebulizers to help clear secretions, continue Breo, guaifenesin finished course of antibiotics (s/p IV vanco 10/30-10/31, IV ceftriaxone 10/31- 11/01, IV piperacillin-tazobactam 11/01-11/06, IV azithro 10/30-11/04) Will add Mucomyst updraft b.i.d. case discussed with Dr. Riley/chest PT t.i.d./out of bed to chair Possible pancreatic mass No mass noted on MRI on abdominal and pelvic CT scan noted to have abrupt change in size with atrophy + ductal dilation beyond pancreatic neck; also extra- and intra-hepatic biliary dilation to level of ampulla GI consulted, MRI with/without contrast obtained that showed changing caliber of pancreatic duct with distal atrophy of pancreatic parenchyma and tortuosity and dilatation of the duct and underlying stricture can not be excluded,No pancreatic mass noted, distended gallbladder with sludge and small stones common bile duct 1.4 cm without intraductal filling defects, moderate intrahepatic biliary ductal dilatation may represent biliary dyskinesia Patient with no abdominal pain, normal LFTs Case discussed with GI since patient is asymptomatic they recommended no aggressive invasive procedures or surgery if bacteremic than possible cholecystostomy. acute metabolic encephalopathy due to hypoglycemia resolved Alkalosis likely contraction alkalosis no history of CO2 retention, Lasix held, bicarb trending down . Acute hypokalemia- repleted and normalized. On potassium supplement gout - no acute flare, continue allopurinol chronic HF with unknown EF - on maintenance furosemide, hold Lasix appears euvolemic , follow clinical course chronic pain - continue cyclobenzaprine, reduced dose of gabapentin, lidocaine patch + prn morphine DM2 - elevated blood sugars, off steroids, continue Lantus 30 units and insulin sliding scale (at home on 25 units Lantus at a.m. and pre meal insulin 15 units t.i.d..) morbid obesity- diet/exercise counseling VTE ppx - apixaban dispo- eventual STR Code status discussed with patient regarding intubation, she has poor understanding, called daughter left message to call back. In my clinical judgment, the patient requires continued inpatient hospitalization for the following reasons: IV ABX for bacteremia, safe disposition Quality Stroke Does the patient have a stroke diagnosis?: No VTE Prior VTE?: No VTE Risk Level:: Medical - moderate - high VTE Device Contraindication: Treatment Not Indicated VTE Drug Contraindication: N/A - Med Ordered
--- NOTE | 2023-11-12 15:58 | MHC.CM.PN ---
EMR reviewed and per MD rounds, pt is not medically cleared for discharge due to management of bacteremia and rate control.
[2023-11-12 16:51] LABS: Glucose, Whole Blood 179 mg/dL (60-115)
[2023-11-12] MEDS: Nystatin Oral Susp 500,000 UNIT/5 ML ORAL.SUSP 500000 UNIT PO ×2 (17:18→22:10)
[2023-11-12] MEDS: ondansetron HCL 4 MG/2 ML VIAL IVPUSH (20:05)
[2023-11-12] MEDS: Acetaminophen 325 MG TABLET 975 MG PO (20:06)
--- NOTE | 2023-11-12 20:06 | PC.NURSE ---
Patient states pain 9/10, Oxycodone for severe pain scale 7-10 and acetaminophen 975mg for mild pain also given at the same per her request to target pain.
[2023-11-12] MEDS: guaiFENesin 200 MG/10 ML 10 ML LIQUID PO (20:07)
[2023-11-12] MEDS: Chlorhexidine Gluc Oral Rinse 15 ML MOUTHWASH BUCCAL (20:07)
[2023-11-12] MEDS: Apixaban 5 MG TABLET PO (20:07)
[2023-11-12] MEDS: Melatonin 3 MG TABLET 6 MG PO (20:08)
[2023-11-12 20:51] LABS: Glucose, Whole Blood 237 mg/dL (60-115)
[2023-11-13] VITALS (29 sets, daily range): BP systolic 107–160; BP diastolic 38–81; PULSE 82–118; RESP 14–24; TEMP 34.9–38; O2SAT 92–97
[2023-11-13 07:06] LABS: Glucose, Whole Blood 73 mg/dL (60-115)
[2023-11-13] MEDS: Sennosides/Docusate Sodium TABLET 2 TAB PO ×2 (07:51→21:52)
[2023-11-13] MEDS: Potassium Chloride Packet 20 MEQ PACKET 40 MEQ PO (07:51)
[2023-11-13] MEDS: allopurinoL 300 MG TABLET 150 MG PO (07:52)
[2023-11-13] MEDS: Apixaban 5 MG TABLET PO ×2 (07:52→21:52)
[2023-11-13] MEDS: dilTIAZem HCL 30 MG TABLET 90 MG PO (07:53)
[2023-11-13] MEDS: Cyclobenzaprine HCl 5 MG TABLET PO (07:53)
[2023-11-13] MEDS: guaiFENesin LA 600 MG TAB.ER.12H 1200 MG PO (07:53)
[2023-11-13] MEDS: Gabapentin 600 MG TABLET 300 MG PO (07:53)
[2023-11-13] MEDS: Nicotine 14 MG PATCH.TD24 TRANSDERMA (07:55)
[2023-11-13] MEDS: Amiodarone HCL 200 MG TABLET PO (07:55)
[2023-11-13] MEDS: Insulin Glargine,Hum.rec.anlog 100 UNIT/ML 10 ML VIAL 30 UNIT SUBCUT (07:55)
[2023-11-13] MEDS: 0.9 % Sodium Chloride Flush 3 ML SYRINGE IVFLUSH ×3 (07:55→21:53)
[2023-11-13] MEDS: PARoxetine HCL 20 MG TABLET PO (07:57)
[2023-11-13] MEDS: polyethylene glycoL 3350 17 GM POWD.PACK PO (08:10)
[2023-11-13] MEDS: Albuterol/Iprat 2.5/0.5MG 3 ML AMPUL.NEB INHALE ×4 (08:14→21:00)
[2023-11-13] MEDS: Acetylcysteine 10 % 400 MG/4 ML VIAL INHALE ×2 (08:14→21:00)
[2023-11-13 08:45] LABS: ABG Base Excess 4.6 mmol/L; ABG HCO3 28 mmol/L (22-26); ABG pCO2 40 mmHg (32-45); ABG pH 7.45 (7.35-7.45); ABG pO2 63 mmHg (83-108)
[2023-11-13] MEDS: Furosemide 40 MG/4 ML VIAL IVPUSH (08:48)
[2023-11-13 08:58] LABS: Hematocrit 40.8 % (37.0-47.0); Hemoglobin 13.1 g/dl (12.0-16.0); Mean Corpuscular HGB Conc 32.1 g/dl (31.0-35.0); Mean Corpuscular Hemoglobin 32.1 pg (27.0-33.0); PLT CLUMP 1; Red Blood Count 4.08 X10*6/uL (4.20-5.50); Red Cell Distribution Width 13.4 % (11.0-16.0)
[2023-11-13 09:09] LABS: Anion Gap 17 (12-20); Blood Urea Nitrogen 34 mg/dL (9-16); Calcium 9.1 mg/dL (8.4-10.2); Carbon Dioxide 24 mmol/L (22-29); Chloride 103 mmol/L (96-108); Creatinine Clr Calc Pharmacy 62.5; Estimated Glomerular Filt Rate > 60; Glucose Random 63 mg/dL (60-115); Potassium 3.9 mmol/L (3.3-5.1); Sodium 140 mmol/L (135-145)
[2023-11-13] MEDS: Piperacillin Sodium/Tazobactam 4.5 GM in 0.9 % Sodium Chloride 100 ML IV ×3 (09:09→21:52)
--- NOTE | 2023-11-13 09:21 | P.PNPL_ITS ---
Subjective Subjective Date of Service: 11/13/23 Interval history: The patient is seen on exam. Placed on Mucomyst yesterday with CPT with flutter valve to help with mucus clearance. This morning she is somnolent confused. Blood gas looks pretty good without any evidence of any hypercarbia. She is hypoxic but not enough to explain her mental status changes. Likely metabolic could be hypoglycemia since sugar this morning was in the 60s. She did have a chest x-ray which I personally reviewed seems to have a perihilar consolidation on the left hemithorax. She is at risk for aspiration pneumonia. Objective Data Labs 11/13/23 08:46 11/13/23 08:46 Labs: Laboratory Results - last 24 hr 11/12/23 11/12/23 11/12/23 10:57 16:43 20:34 RBC Hgb Hct MCV MCH MCHC RDW Absolute Nucleated RBC Nucleated RBC % (auto) O2 Saturation ABG pH at Pt Temp ABG pCO2 at Pt Temp ABG pO2 at Pt Temp ABG HCO3 ABG Base Excess (Actual) Sodium Potassium Chloride Carbon Dioxide Anion Gap BUN Creatinine Estim Creat Clear Calc Estimated GFR POC Glucose 238 H 179 H 237 H Random Glucose Calcium 11/13/23 11/13/23 11/13/23 06:49 08:37 08:46 RBC 4.08 L Hgb 13.1 Hct 40.8 MCV 100.0 H MCH 32.1 MCHC 32.1 RDW 13.4 Absolute Nucleated RBC 0.000 Nucleated RBC % (auto) 0.0 O2 Saturation 93.0 ABG pH at Pt Temp 7.45 ABG pCO2 at Pt Temp 40 ABG pO2 at Pt Temp 63 L ABG HCO3 28 H ABG Base Excess (Actual) 4.6 Sodium 140 Potassium 3.9 Chloride 103 Carbon Dioxide 24 Anion Gap 17 BUN 34 H Creatinine 0.90 Estim Creat Clear Calc 62.5 Estimated GFR > 60 POC Glucose 73 Random Glucose 63 Calcium 9.1 Microbiology Microbiology Results: Microbiology 11/02/23 13:18 Blood - Venous Blood Culture - Final No growth after 5 days. 11/02/23 13:18 Blood - Venous Blood Culture - Final No growth after 5 days. 10/30/23 19:59 Blood - Venous Blood Culture - Final No growth after 5 days. 10/30/23 19:11 Blood - Venous Blood Culture - Final Enterococcus faecalis Review of Systems Review of Systems Yes Unobtainable due to mental status Reports confusion Psychiatric: Reports confusion Physical Exam 2 Vital Signs: Vital Signs: Last Vital Signs Temp 99.4 F 11/13/23 07:36 Pulse 118 H 11/13/23 08:54 Resp 22 H 11/13/23 08:16 BP 147/76 H 11/13/23 08:48 Pulse Ox 94 11/13/23 07:36 O2 Del Method Oxymask 11/13/23 07:36 O2 Flow Rate 1.5 11/13/23 07:36 Oxygen Flow Rate 2 11/10/23 07:30 BMI result Body Mass Index 42.9 Const: General: confusion and lethargic Orientation/consciousness: No patient oriented x3, confusion and lethargic HEENT: Other: Unremarkable Head: Yes normal to inspection Neck: Neck: Yes normal visual inspection Chest: Chest palpation & inspection: normal inspection of the chest Resp: Other: Bilateral wheezing Effort & Inspection: decreased respiratory effort Auscultation: breath sounds absent and diminished lung sounds Cardio: Other: Difficult to auscultate as patient is crying and screaming. Palpation: normal PMI Heart sounds: S1 normal heart sound present and S2 normal heart sound present GI: Palpation (GI): Soft to palpation Back/Spine/Pelvis: Other: unremarkable Skin: General skin exam: no rashes or lesions noted Neuro: General: No patient oriented x3 and confusion Extrem: General: Yes normal to inspection Psych: Mental Status: mental status grossly normal Procedures Date of Service Date of Service: 11/13/23 Assessment and Plan Assessment and plan (1) Acute respiratory failure with hypoxia: Status: Acute (2) COPD exacerbation: Status: Acute (3) Pneumonia: Status: Acute (4) Atelectasis: Status: Acute (5) Altered mental state: Status: Acute Plan continue Mucomyst BID x 3 days continue albuterol nebs CPT with acapella valve oxygen to keep pox>90% sputum culture chlorhexadine mouth wash monitor sugars consider switching dabtomycin to Unasyn for now Time Spent With Patient Time: Total time managing care of this patient today ____ minutes. Progress Note: Quality Stroke Does the patient have a stroke diagnosis?: No
[2023-11-13 09:29] LABS: Mean Platelet Volume 11.2 fL (9.4-12.3); Platelet Count 105 X10*3/uL (160-400)
--- NOTE | 2023-11-13 09:58 | PC.RT ---
Pt found to be lethargic, diff to arouse. LS coarse bilat Rhonchi, dim bases sec to poor insp effort. Svn given via aerobika unable to complete as pt unable to hold to her mouth. Mask treatment given, MDI held sec to poor insp effort. Pt noted unable to cough and clear, skin moist and warm, tachycardic to the 130s and displaying mild to mod inc wob. Nurse, made aware. Dr Cardenas in, cxr/ abg ordered. Dr. Riley consulted. MD request nasal suction, trumpet placed in R nare f/b sxn for lg brn/tavarez particulate. Pt cont on 3 lpm o2 at this time while ICU transport is considered.
--- NOTE | 2023-11-13 10:23 | MHC.CM.PN ---
Per hospitalist, they were unable to reach pts daughter Sanjana at number listed to discuss pts condition with her. This CM called pts daughter at the pts home phone #[phone] and pts daughter answered. Sanjana stated she is having trouble with her cell phone right now, but can be reached at the mothers home phone #. No HCP seen on file, this CM called [facility] for a copy of her HCP which was faxed and now on file. Per HCP Francisco Ross at [phone] is the HCP. This CM called Francisco on number listed and was unable to reach. Per MD rounds, pts condition has worsened, and may be transferring to the ICU.
[2023-11-13] MEDS: Dextrose 10 % 250 ML 750 ML IV (10:40)
--- NOTE | 2023-11-13 10:42 | HO.PM.IMPN ---
Subjective Subjective Date of Service: 11/13/23 Interval History: Patient noted to be lethargic, diaphoretic, tachypneic and tachycardic this morning, arousable to verbal stimuli asking for water, unable to obtain review of system due to lethargy and somnolence. Review of Systems Unable to obtain due to mental status. Physical Exam Vital Signs: Vital Signs: Last Vital Signs Temp 99.4 F 11/13/23 07:36 Pulse 118 H 11/13/23 08:54 Resp 22 H 11/13/23 08:16 BP 147/76 H 11/13/23 08:48 Pulse Ox 94 11/13/23 07:36 O2 Del Method Oxymask 11/13/23 07:36 O2 Flow Rate 1.5 11/13/23 07:36 Oxygen Flow Rate 2 11/10/23 07:30 BMI result Body Mass Index 42.9 Const: Other: Gen: Lethargic, diaphoretic, somnolent arousable to verbal stimuli HEENT: sclera anicteric, thick coating and white spots on tongue Neck: supple, no JVD Lungs: Bilateral coarse congested breath sound,no wheezing Heart: regular, no murmurs Abd: soft, non-tender, non-distended, bowel sounds audible Ext: no edema Skin: warm/well-perfused/bilateral upper and lower extremity ecchymosis, no bleeding Neuro: Lethargic somnolent arousable , speech clear, face symmetrical Objective Data Active Medications Acetaminophen (Acetaminophen 325 Mg Tablet) 975 mg PO Q6H PRN PRN Reason: mild pain, headache or fever Last Admin: 11/12/23 20:06 Dose: 975 mg Documented By: BRAD Acetylcysteine (Acetylcysteine 10 % 400 Mg/4 Ml Vial) 400 mg INHALE RBID [facility] Last Admin: 11/13/23 08:14 Dose: 400 mg Documented By: NEYDA Albuterol Sulfate (Albuterol Sulfate (0.083%) 2.5 Mg/3 Ml Vial.Neb) 2.5 mg INHALE Q2H PRN PRN Reason: Shortness of Breath/Wheezing Albuterol/Ipratropium (Albuterol/Iprat 2.5/0.5mg 3 Ml Ampul.Neb) 3 ml INHALE RQ4H WHILE AWAKE [facility] Last Admin: 11/13/23 08:14 Dose: 3 ml Documented By: NEYDA Allopurinol (Allopurinol 300 Mg Tablet) 150 mg PO DAILY [facility] Last Admin: 11/13/23 07:52 Dose: 150 mg Documented By: ALEXANDREA Amiodarone HCl (Amiodarone Hcl 200 Mg Tablet) 200 mg PO DAILY [facility] Last Admin: 11/13/23 07:55 Dose: 200 mg Documented By: ALEXANDREA Apixaban (Apixaban 5 Mg Tablet) 5 mg PO BID [facility] Last Admin: 11/13/23 07:52 Dose: 5 mg Documented By: ALEXANDREA Chlorhexidine Gluconate (Chlorhexidine Gluc Oral Rinse 15 Ml Mouthwash) 15 ml BUCCAL BID [facility] Last Admin: 11/13/23 08:10 Dose: Not Given Documented By: ALEXANDREA Non-Admin Reason: Patient Refused Diltiazem HCl (Diltiazem Hcl 30 Mg Tablet) 90 mg PO QID [facility]; Protocol Last Admin: 11/13/23 07:53 Dose: 90 mg Documented By: ALEXANDREA Docusate Sodium (Docusate Sodium 100 Mg Capsule) 100 mg PO BID PRN PRN Reason: constipation Fluticasone/Vilanterol (Fluticasone/Vilanterol 100/25 Blst.W.Dev) 1 puff INHALE RDAILY [facility] Last Admin: 11/13/23 08:58 Dose: Not Given Documented By: NEYDA Non-Admin Reason: pt unable Gabapentin (Gabapentin 600 Mg Tablet) 300 mg PO TID [facility] Last Admin: 11/13/23 07:53 Dose: 300 mg Documented By: ALEXANDREA Glucose (Glucose Gel 15 Gm Gel..Gram.) 15 gm PO Q15M PRN; Protocol PRN Reason: per Hypoglycemia Standing Ord. Guaifenesin (Guaifenesin La 600 Mg Tab.Er.12h) 1,200 mg PO BID [facility] Last Admin: 11/13/23 07:53 Dose: 1,200 mg Documented By: ALEXANDREA Guaifenesin (Guaifenesin 200 Mg/10 Ml 10 Ml Liquid) 10 ml PO Q6H PRN PRN Reason: Cough Last Admin: 11/12/23 20:07 Dose: 10 ml Documented By: BRAD Dextrose (D10) 250 mls @ 750 mls/hr IV Q15M PRN; Protocol PRN Reason: per Hypoglycemia Standing Ord. Last Admin: 11/13/23 10:40 Dose: 750 mls/hr Documented By: ALEXANDREA Piperacillin Sod/Tazobactam (Sod 4.5 gm/ Sodium Chloride) 100 mls @ 200 mls/hr IV Q6H [facility] Last Infusion: 11/13/23 09:48 Dose: Infused Documented By: ALEXANDREA Insulin Glargine (Insulin Glargine,Hum.Rec.Anlog 100 Unit/Ml 10 Ml Vial) 30 unit SUBCUT DAILY [facility] Last Admin: 11/13/23 07:55 Dose: 30 unit Documented By: ALEXANDREA Insulin Human Lispro (Insulin Lispro 100 Unit/Ml 3 Ml Vial) 0 unit SUBCUT QIDACHS [facility]; Protocol Last Admin: 11/13/23 07:41 Dose: Not Given Documented By: ALEXANDREA Non-Admin Reason: No Insulin Coverage Lidocaine (Lidocaine 4 % Patch Adh..Patch) 1 patch TRANSDERMA DAILY [facility]; Protocol Last Admin: 11/13/23 08:11 Dose: Not Given Documented By: ALEXANDREA Non-Admin Reason: Patient Refused Melatonin (Melatonin 3 Mg Tablet) 6 mg PO BEDTIME PRN PRN Reason: Insomnia Last Admin: 11/12/23 20:08 Dose: 6 mg Documented By: BRAD Morphine Sulfate (Morphine Sulfate 2 Mg/Ml Cartridge) 3 mg IVPUSH Q3H PRN; Protocol PRN Reason: severe pain Last Admin: 11/12/23 20:07 Dose: 3 mg Documented By: BRAD Nicotine (Nicotine 14 Mg Patch.Td24) 14 mg TRANSDERMA DAILY [facility] Last Admin: 11/13/23 07:55 Dose: 14 mg Documented By: ALEXANDREA Nystatin (Nystatin Oral Susp 500,000 Unit/5 Ml Oral.Susp) 500,000 unit PO QID [facility]; Protocol Last Admin: 11/13/23 08:10 Dose: Not Given Documented By: ALEXANDREA Non-Admin Reason: Patient Refused Ondansetron HCl (Ondansetron Hcl 4 Mg/2 Ml Vial) 4 mg IVPUSH Q8H PRN PRN Reason: Nausea and Vomiting Last Admin: 11/12/23 20:05 Dose: 4 mg Documented By: BRAD Paroxetine HCl (Paroxetine Hcl 20 Mg Tablet) 20 mg PO DAILY@0900 [facility] Last Admin: 11/13/23 07:57 Dose: 20 mg Documented By: ALEXANDREA Polyethylene Glycol (Polyethylene Glycol 3350 17 Gm Powd.Pack) 17 gm PO DAILY [facility] Last Admin: 11/13/23 08:10 Dose: 17 gm Documented By: ALEXANDREA Potassium Chloride (Potassium Chloride Packet 20 Meq Packet) 40 meq PO DAILY [facility] Last Admin: 11/13/23 07:51 Dose: 40 meq Documented By: ALEXANDREA Senna/Docusate Sodium (Sennosides/Docusate Sodium Tablet) 2 tab PO BID [facility] Last Admin: 11/13/23 07:51 Dose: 2 tab Documented By: ALEXANDREA Sodium Chloride (0.9 % Sodium Chloride Flush 3 Ml Syringe) 3 ml IVFLUSH QSHIFT [facility] Last Admin: 11/13/23 07:55 Dose: 3 ml Documented By: ALEXANDREA Labs 11/13/23 08:46 11/13/23 08:46 Labs: Laboratory Results - last 24 hr 11/12/23 11/12/23 11/12/23 10:57 16:43 20:34 MCV MCH MCHC RDW Plt Count MPV Absolute Nucleated RBC Nucleated RBC % (auto) O2 Saturation ABG pH at Pt Temp ABG pCO2 at Pt Temp ABG pO2 at Pt Temp ABG HCO3 ABG Base Excess (Actual) Anion Gap Estim Creat Clear Calc Estimated GFR POC Glucose 238 H 179 H 237 H Random Glucose Calcium 11/13/23 11/13/23 11/13/23 06:49 08:37 08:46 MCV 100.0 H MCH 32.1 MCHC 32.1 RDW 13.4 Plt Count 105 L MPV 11.2 Absolute Nucleated RBC 0.000 Nucleated RBC % (auto) 0.0 O2 Saturation 93.0 ABG pH at Pt Temp 7.45 ABG pCO2 at Pt Temp 40 ABG pO2 at Pt Temp 63 L ABG HCO3 28 H ABG Base Excess (Actual) 4.6 Anion Gap 17 Estim Creat Clear Calc 62.5 Estimated GFR > 60 POC Glucose 73 Random Glucose 63 Calcium 9.1 Assessment and Plan (1) Acute respiratory failure with hypoxia: Status: Acute (2) Atrial fibrillation with rapid ventricular response: Status: Acute Plan 78yo F with pAF on apixaban, COPD not on hO2, gout, HF with unknown EF, gout, DM2 presented with AMS, admitted for hypoxia due to CAP + COPD Acute hypoxic resp failure and sepsis due to CAP + COPD exac, chronic alkalosis with pH around 7.5 This morning patient noted to be lethargic, somnolent, tachypnea and tachycardic. Cxr 11/10 showed low lung volumes with persistent partial collapse of the right lower lobe and linear atelectasis in the left lung base, no new airspace disease ABGs pH 7.4, pCO2 40, PO2 63, bicarb 28 Repeat chest x-ray today showed similar findings COPD exacerbation resolved ,s/p IV steroids finished course of antibiotics (s/p IV vanco 10/30-10/31, IV ceftriaxone 10/31-11/01, IV piperacillin-tazobactam 11/01-11/06, IV azithro 10/30-11/04) on scheduled and as needed nebulizers to help clear secretions, on Breo, guaifenesin LA bid, on Mucomyst updraft b.i.d. /chest PT t.i.d. Case discussed with shot polisher/underwent nasal suctioning noted to have significant brown secretions IV Zosyn started/IV Lasix x1 dose given Patient will be transferred to ICU for close respiratory monitoring and treatment Sepsis due to Enterococcus faecalis bacteremia -on IV daptomycin for total 2 weeks end date to cover for biliary source -as part of workup CT abdomen and pelvis was done that showed abrupt change in size of pancreas with atrophy plus ductal dilatation be on pancreatic neck, also extra and intrahepatic biliary dilatation to level of ampulla noted Follow-up MRI obtained to rule out pancreatic mass that showed no masses but showed changing caliber of pancreatic duct with distal atrophy of pancreatic parenchyma, tortuosity and dilatation of the duct, underlying stricture Was not excluded, distended gallbladder with sludge and small stones, common bile duct 1.4 cm without intraductal filling defects, moderate intrahepatic biliary ductal dilatation may represent biliary dyskinesia. no abdominal pain, normal LFTs Case discussed with GI since patient is asymptomatic they recommended no aggressive invasive procedures, or surgery if bacteremic than possible cholecystostomy. repeat BCx from 11/01 negative; TTE with no vegetation will DC IV daptomycin and placed on IV Zosyn to cover pneumonia and gi Oral Candidiasis continue nystatin swish and spit, recommend to rinse mouth after Breo AF/RVR Now in normal sinus rhythm s/p diltiazem IV bolus then gtt; loaded with digoxin IV 0.25 mg x2 , status post amiodarone drip now on amiodarone PO 200 mg daily, Cardizem 90 mg q.i.d. can transition to 360 daily on Eliquis 5 mg b.i.d. echo 11/04: Showed EF 60-65%., normal right ventricular cavity size and systolic function, no obvious vegetation noted Acute thrombocytopenia likely drug-induced , digoxin and Pepcid discontinued platelets improved to 100,000 , follow CBC acute metabolic encephalopathy due to hypoglycemia resolved Alkalosis likely contraction alkalosis no history of CO2 retention, likely due to diuretics , patient appears euvolemic , Lasix 40 mg b.i.d. on hold, repeat ABG showed significant improvement in pH and bicarb. Acute hypokalemia- repleted and normalized. gout - no acute flare, continue allopurinol chronic diastolic HF with on maintenance furosemide 40 mg b.i.d., Lasix discontinued, appears euvolemic , follow clinical course chronic pain - on cyclobenzaprine 10 mg t.i.d., gabapentin 600 t.i.d. at home, Cyclobenzaprine dose gradually weaned and now discontinued, gabapentin dose reduced 300 t.i.d., on lidocaine patch + prn morphine DM2 - labile blood sugars , noted to have hypoglycemia this morning likely due to poor by mouth intake, dose of Lantus reduced to 20 units continue insulin sliding scale (at home on 25 units Lantus at a.m. and pre meal insulin 15 units t.i.d..) morbid obesity- diet/exercise counseling VTE ppx - apixaban dispo- eventual STR Code status discussed with patient regarding intubation, she has poor understanding, called daughter Sanjana Hazel and spoke with her in detail, she is not the healthcare proxy but her [employer], she feels mother signed healthcare proxy Either with PCP or at [facility], but she feels patient will declined intubation, patient always in pain, mostly in bed, minimal activity, drinks alcohol, at times very agitated, crying for pain medications. She does have episodes of hypoglycemia at home, and has been in and out of [facility] in last 3 months, not on home oxygen. In my clinical judgment, the patient requires continued inpatient hospitalization for the following reasons: IV ABX for bacteremia, safe disposition Quality Stroke Does the patient have a stroke diagnosis?: No VTE Prior VTE?: No VTE Risk Level:: Medical - moderate - high VTE Device Contraindication: Treatment Not Indicated VTE Drug Contraindication: N/A - Med Ordered
[2023-11-13 10:55] LABS: Glucose, Whole Blood 39 mg/dL (60-115)
[2023-11-13 11:13] LABS: Glucose, Whole Blood 185 mg/dL (60-115)
--- NOTE | 2023-11-13 11:17 | PC.NURSE ---
At around 0900, pt observed to be lethargic, pale, diaphoretic, and minimally responsive. Pt moaning to verbal stimuli. Pt tachycardic in 120s-130s, temp of 101.3, BP 147/59, O2 92% on 2 L. Assessment noted to have expiratory rhonchi throughout with increased work of breathing. MD and RT at bedside. New orders obtained for 40 mg IVP lasix, and dose of Zosyn. Orders to place nasal trumpet and suctioning; performed by RT. MD placed consult for ICU transfer; accepted by Intesivist. At around 1045, [employer] informed this RN that pt's blood sugar was 39. Pt observed to still be lethargic. MD notified and standing order of 250 ml D10 IV administered. POC rechecked with result of 185. Pt being transferred to ICU, no other concerns at this time.
[2023-11-13] MEDS: Succinylcholine Chloride 100 MG/5 ML SYRINGE IVPUSH (12:37)
[2023-11-13] MEDS: Midazolam HCl/PF 2 MG/2 ML VIAL 4 MG IVPUSH (12:37)
[2023-11-13] MEDS: Etomidate 20 MG/10 ML VIAL IVPUSH (12:37)
[2023-11-13] MEDS: propofoL 1,000 MG/100 ML VIAL 20.41 MG IVCONT (12:40)
[2023-11-13] MEDS: Norepinephrine Bitartrate/D5W 8 MG/250 ML PLAST..BAG 10.63 MG IV (12:41)
[2023-11-13] MEDS: Nystatin Oral Susp 500,000 UNIT/5 ML ORAL.SUSP 500000 UNIT PO (13:40)
[2023-11-13 14:34] LABS: Glucose, Whole Blood 68 mg/dL (60-115)
[2023-11-13] MEDS: Dextrose 5 % and Lactated Ring 1,000 ML 80 ML IVCONT (14:59)
[2023-11-13] MEDS: Albumin Human 25 % 100 ML 133.33 ML IV ×2 (15:16→16:09)
--- NOTE | 2023-11-13 15:35 | W.PM.CCCN ---
History of Present Illness Data of Consult Service Date: 11/13/23 Primary Care Provider: Ti Thompson PA-C HPI Reason for consult: Altered mental status 78-year-old lady with PMH of COPD, heart failure with preserved ejection fraction, paroxysmal atrial fibrillation on Eliquis, gout, insulin-dependent diabetes mellitus is admitted to the hospital on 10/30/2023 due to altered mental status thought to be secondary to Enterococcus faecalis bacteremia. The possible source of bacteremia is hepatobiliary as the CT and MRI of the abdomen showed dilated bile ducts. Patient has been increasingly drowsy and this morning had excessive secretion and was actively aspirating her secretion so MICU was consulted and intubated and placed on ventilator support. Post intubation patient briefly needed vasopressor support which was tapered off, she is on fentanyl and propofol Review of Systems Review of Systems: Unable to obtain as patient is obtunded [facility] Past Medical History Medical History (Updated 11/13/23 @ 15:39 by Herbert Esparza MD) Atelectasis Bacteremia due to Enterococcus CHF (congestive heart failure) A-fib Diabetes Cough Hypoventilation syndrome Skin cancer of trunk Skin cancer of face COPD (chronic obstructive pulmonary disease) Failed back syndrome Family History Family History Father No problems noted. Mother No problems noted. Daughter Opiate dependence Substance use disorder Family/Other FH: mental illness Mental health disorder Family history: reviewed and not pertinent Surgical History Surgical History History of knee surgery History of shoulder surgery History of ankle surgery History of hip surgery Social History Social History Household Members: None Household Members Other:: daughter Housing: Apartment Do you presently have visiting nurse or other home services: Yes Unable to assess alcohol history related to: Unknown Alcohol intake: never Patient Tobacco Use Status: Former Tobacco user Tobacco use type: Cigarette e-Cigarette/Vaping Use: Never Used service: No Current occupational status: retired and disabled Cognitive needs: Yes Hearing needs: No Vision needs: Yes Meds Allergies Allergy/AdvReac Type Severity Reaction Status Date / Time aspirin [Aspirin] Allergy Mild NAUSEA Verified 10/30/23 14:44 codeine [Codeine] Allergy Mild VOMITING Verified 10/30/23 14:44 Active Medications: Current Medications Acetaminophen (Acetaminophen 325 Mg Tablet) 975 mg PO Q6H PRN PRN Reason: mild pain, headache or fever Last Admin: 11/12/23 20:06 Dose: 975 mg Acetylcysteine (Acetylcysteine 10 % 400 Mg/4 Ml Vial) 400 mg INHALE RBID [facility] Last Admin: 11/13/23 08:14 Dose: 400 mg Albuterol Sulfate (Albuterol Sulfate (0.083%) 2.5 Mg/3 Ml Vial.Neb) 2.5 mg INHALE Q2H PRN PRN Reason: Shortness of Breath/Wheezing Albuterol/Ipratropium (Albuterol/Iprat 2.5/0.5mg 3 Ml Ampul.Neb) 3 ml INHALE RQ4H WHILE AWAKE [facility] Last Admin: 11/13/23 15:32 Dose: 3 ml Allopurinol (Allopurinol 300 Mg Tablet) 150 mg PO DAILY [facility] Last Admin: 11/13/23 07:52 Dose: 150 mg Amiodarone HCl (Amiodarone Hcl 200 Mg Tablet) 200 mg PO DAILY [facility] Last Admin: 11/13/23 07:55 Dose: 200 mg Apixaban (Apixaban 5 Mg Tablet) 5 mg PO BID [facility] Last Admin: 11/13/23 07:52 Dose: 5 mg Chlorhexidine Gluconate (Chlorhexidine Gluc Oral Rinse 15 Ml Mouthwash) 15 ml BUCCAL BID [facility] Last Admin: 11/13/23 08:10 Dose: Not Given Diltiazem HCl (Diltiazem Hcl 30 Mg Tablet) 90 mg PO QID [facility]; Protocol Last Admin: 11/13/23 13:40 Dose: Not Given Docusate Sodium (Docusate Sodium 100 Mg Capsule) 100 mg PO BID PRN PRN Reason: constipation Fluticasone/Vilanterol (Fluticasone/Vilanterol 100/25 Blst.W.Dev) 1 puff INHALE RDAILY [facility] Last Admin: 11/13/23 08:58 Dose: Not Given Gabapentin (Gabapentin 600 Mg Tablet) 300 mg PO TID [facility] Last Admin: 11/13/23 13:41 Dose: Not Given Glucose (Glucose Gel 15 Gm Gel..Gram.) 15 gm PO Q15M PRN; Protocol PRN Reason: per Hypoglycemia Standing Ord. Guaifenesin (Guaifenesin La 600 Mg Tab.Er.12h) 1,200 mg PO BID [facility] Last Admin: 11/13/23 07:53 Dose: 1,200 mg Dextrose (D10) 250 mls @ 750 mls/hr IV Q15M PRN; Protocol PRN Reason: per Hypoglycemia Standing Ord. Last Infusion: 11/13/23 11:15 Dose: Infused Piperacillin Sod/Tazobactam (Sod 4.5 gm/ Sodium Chloride) 100 mls @ 200 mls/hr IV Q6H [facility]ESSICA Last Infusion: 11/13/23 14:57 Dose: Infused Norepinephrine Bitartrate (Levophed) 8 mg in 250 mls @ 0 mls/hr IV .Q0M [facility]; Protocol Last Titration: 11/13/23 14:46 Dose: 0 mcg/kg/min, 0 mls/hr Propofol (Diprivan) 1,000 mg in 100 mls @ 0 mls/hr IVCONT .Q0M [facility]; Protocol Last Titration: 11/13/23 14:16 Dose: 20 mcg/kg/min, 13.61 mls/hr Dextrose/Lactated Ringer's (D5lr) 1,000 mls @ 80 mls/hr IVCONT .[id number] [facility] Last Admin: 11/13/23 14:59 Dose: 80 mls/hr Albumin Human (Kedbumin 25 %) 100 mls @ 133.333 mls/hr IV Q1H [facility] Stop: 11/13/23 16:59 Last Admin: 11/13/23 15:16 Dose: 133.33 mls/hr Insulin Glargine (Insulin Glargine,Hum.Rec.Anlog 100 Unit/Ml 10 Ml Vial) 20 unit SUBCUT DAILY [facility] Insulin Human Lispro (Insulin Lispro 100 Unit/Ml 3 Ml Vial) 0 unit SUBCUT Q6H [facility]; Protocol Lidocaine (Lidocaine 4 % Patch Adh..Patch) 1 patch TRANSDERMA DAILY [facility]; Protocol Last Admin: 11/13/23 08:11 Dose: Not Given Melatonin (Melatonin 3 Mg Tablet) 6 mg PO BEDTIME PRN PRN Reason: Insomnia Last Admin: 11/12/23 20:08 Dose: 6 mg Nicotine (Nicotine 14 Mg Patch.Td24) 14 mg TRANSDERMA DAILY [facility] Last Admin: 11/13/23 07:55 Dose: 14 mg Nystatin (Nystatin Oral Susp 500,000 Unit/5 Ml Oral.Susp) 500,000 unit PO QID [facility]; Protocol Last Admin: 11/13/23 13:40 Dose: 500,000 unit Ondansetron HCl (Ondansetron Hcl 4 Mg/2 Ml Vial) 4 mg IVPUSH Q8H PRN PRN Reason: Nausea and Vomiting Last Admin: 11/12/23 20:05 Dose: 4 mg Paroxetine HCl (Paroxetine Hcl 20 Mg Tablet) 20 mg PO DAILY@0900 [facility] Last Admin: 11/13/23 07:57 Dose: 20 mg Polyethylene Glycol (Polyethylene Glycol 3350 17 Gm Powd.Pack) 17 gm PO DAILY [facility] Last Admin: 11/13/23 08:10 Dose: 17 gm Senna/Docusate Sodium (Sennosides/Docusate Sodium Tablet) 2 tab PO BID [facility] Last Admin: 11/13/23 07:51 Dose: 2 tab Sodium Chloride (0.9 % Sodium Chloride Flush 3 Ml Syringe) 3 ml IVFLUSH QSHIFT [facility] Last Admin: 11/13/23 14:23 Dose: 3 ml Home Medications ?Medication ?Instructions ?Recorded ?Confirmed ?Last Taken ?Type nicotine 14 mg/24 hr daily 1 patch topical DAILY 10/30/23 10/30/23 Unknown History transdermal patch Physical Exam Vital Signs: Vital Signs: Last Vital Signs Temp 100.2 F 11/13/23 15:00 Pulse 95 11/13/23 15:32 Resp 15 11/13/23 15:32 BP 120/53 L 11/13/23 15:00 Pulse Ox 95 11/13/23 15:00 O2 Del Method Mechanical Ventil ation 11/13/23 15:00 O2 Flow Rate 2 11/13/23 11:19 FiO2 30 11/13/23 15:05 Oxygen Flow Rate 2 11/10/23 07:30 BMI result Body Mass Index 42.9 General: acute distress, ill appearing and tired appearing Nutritional Appearance: well nourished and overweight Eyes: appearance normal, both eyes and all related structures; Alignment and Position: alignment normal and position normal Neck: No lymphadenopathy, no thyromegaly Resp: bilateral air entry equal, bilateral significant crackles heard Cardio: Regular rate, regular rhythm; Heart sounds: S1 normal heart sound present and S2 normal heart sound present GI: soft, nontender, no guarding, no hepatosplenomegaly : bladder normal to inspection, bladder normal to palpation, no renal angle tenderness Skin: no rashes or lesions noted and elasticity normal Neuro: Obtunded, not following any commands, very weak cough and gag Results Labs 11/13/23 08:46 11/13/23 08:46 Labs: Short CBC 11/13/23 Range/Units 08:46 WBC 21.0 H (4.8-10.8) X10*3/uL Hgb 13.1 (12.0-16.0) g/dl Hct 40.8 (37.0-47.0) % Plt Count 105 L (160-400) X10*3/uL BMP 11/13/23 08:46 Sodium 140 Potassium 3.9 Chloride 103 Carbon Dioxide 24 BUN 34 H Creatinine 0.90 Calcium 9.1 Microbiology Microbiology Results: Microbiology 11/13/23 13:13 Sputum - Suctioned Gram Stain - Final 11/02/23 13:18 Blood - Venous Blood Culture - Final No growth after 5 days. 11/02/23 13:18 Blood - Venous Blood Culture - Final No growth after 5 days. 10/30/23 19:59 Blood - Venous Blood Culture - Final No growth after 5 days. 10/30/23 19:11 Blood - Venous Blood Culture - Final Enterococcus faecalis Assessment and Plan (1) Acute hypoxemic respiratory failure: Status: Acute (2) Aspiration pneumonia: Status: Acute (3) Acute encephalopathy: Status: Acute (4) Atrial fibrillation with rapid ventricular response: Status: Acute (5) Bacteremia due to Enterococcus: Status: Acute (6) Lesion of pancreas: Status: Acute (7) COPD exacerbation: Status: Acute Plan 78-year-old lady with PMH of COPD, heart failure with preserved ejection fraction, paroxysmal atrial fibrillation on Eliquis, gout, insulin-dependent diabetes mellitus is admitted to the hospital on 10/30/2023 due to altered mental status thought to be secondary to Enterococcus faecalis bacteremia. The possible source of bacteremia is hepatobiliary as the CT and MRI of the abdomen showed dilated bile ducts. Patient has been increasingly drowsy and this morning had excessive secretion and was actively aspirating her secretion so MICU was consulted and intubated and placed on ventilator support on 11/13/2023. Neuro: Acute encephalopathy possibly due to metabolic encephalopathy On propofol for sedation, as needed fentanyl for analgesia Close neurological status monitoring in the ICU every hour Cardiac: Cardiogenic Shock: Possibly secondary to etomidate and positive pressure ventilation On Levophed support, titrate Levophed to keep map above 65 mm Hg Paroxysmal atrial fibrillation: Oral diltiazem we will withheld due to risk for hypotension We will do digoxin loading dose and then daily digoxin Respiratory: Acute hypoxemic respiratory failure due to aspiration pneumonia Currently on ventilator support On PRVC mode FiO2[55], PEEP 5, TV 360, RR 24 Peak pressures and plateau pressures are under the curve Ventilator management bundle with head end elevation, aspiration precaution, chlorhexidine mouthwash, daily awakening trials, daily spontaneous breathing trials GI: We will start on tube feeds Renal: Baseline creatinine normal, creatinine today is 0.9 We will closely monitor I's and O's Avoid nephrotoxic medications Heme: Chronic anemia, closely monitor H&H, transfuse for hemoglobin less than 7 grams/deciliter Endocrine: Blood sugars under control Sliding scale insulin as needed Infectious disease: We will send pancultures again Received IV daptomycin for several days, currently on Zosyn. Previously treated with cefepime and ceftriaxone Musculoskeletal: Decubitus ulcer prevention protocol Lines: Peripherals Straight cath done for urinary retention Prophylaxis: Lovenox, pantoprazole Concerns for possible severe sepsis, we will send blood cultures, sputum cultures, we will give albumin bolus and we will trend lactate Patient has multiple organ failure including acute encephalopathy, acute hypoxemic respiratory failure, cardiogenic shock. Total critical care time spent is about 45 minutes in stabilizing this patient, close monitoring respiratory status, ventilator management, sedation management, vasopressor management, management of episodes of hypotension. Total time managing care of this patient today: 45 minutes.
--- NOTE | 2023-11-13 15:44 | W.PM.CCHP ---
Procedures Date of Service Date of Service: 11/13/23 Intubation Consent for Procedure: Emergent-no informed consent obtained Time out performed: Yes Sedative: versed Mg given: 20 Paralytic: succinylcholine Mg given: 100 Laryngoscope: fiber optic video scope ET tube size: 7.5 ET tube uncuffed: No Tube secured depth (cm): 21 Tube placement confirmation: visualized tube passing through cords, equal breath sounds bilaterally and confirmation by capnometry Patient tolerated procedure: well Intubation complications: none
[2023-11-13 17:40] LABS: Glucose, Whole Blood 81 mg/dL (60-115)
[2023-11-13] MEDS: propofoL 1,000 MG/100 ML VIAL 6.8 MG IVCONT (18:05)
[2023-11-13 19:48] LABS: Glucose, Whole Blood 78 mg/dL (60-115)
[2023-11-13] MEDS: Chlorhexidine Gluc Oral Rinse 15 ML MOUTHWASH BUCCAL (21:52)
[2023-11-13 23:31] LABS: Glucose, Whole Blood 86 mg/dL (60-115)
[2023-11-14] VITALS (34 sets, daily range): BP systolic 93–161; BP diastolic 42–67; PULSE 83–105; RESP 14–35; TEMP 34.1–38.5; O2SAT 89–100; BMI 36.9
[2023-11-14] MEDS: Dextrose 5 % and Lactated Ring 1,000 ML 80 ML IVCONT ×2 (00:28→13:48)
[2023-11-14] MEDS: propofoL 1,000 MG/100 ML VIAL 20.41 MG IVCONT ×3 (00:34→07:40)
--- NOTE | 2023-11-14 01:12 | PC.NURSE ---
CARE ASSUMED 7PM..PATIENT REMAINS TUBED/VENTED...D5LR 80 CC/HR AND PROPOFOL PER MAR...PER SHIFT REPOR PATIENT PREVIOUSLY STRAIGHT CATH'D 3PM AFTER INCONTINANCE FOR 800ml URINE.....10:30 PM PATIENT INCONTINANT MODERATE AMOUNT URINE...BLADDER SCANNED >999ml...#16 [employer]EN[employer] INSERTED AND 1450ml CLEAR YELLOW URINE OBTAINED...Q4H POC GLUCOSES PER ICU INTERNET MARKETING SPECIALIST AT 7PM...SERIAL POC GLUCOSES STABLE...PER INTERNET MARKETING SPECIALIST AMIODARONE TO REMAIN ON HOLD...NSR...RARE TO OCCASIONAL PAC'S...BP STABLE
[2023-11-14] MEDS: Piperacillin Sodium/Tazobactam 4.5 GM in 0.9 % Sodium Chloride 100 ML IV ×4 (03:46→21:09)
[2023-11-14 04:57] LABS: Glucose, Whole Blood 83 mg/dL (60-115)
[2023-11-14 06:08] LABS: VBG Base Excess 11.8 mmol/L; VBG HCO3 33 mmol/L (22-26); VBG pCO2 32 mmHg; VBG pH 7.62 (7.32-7.43); VBG pO2 61 mmHg
[2023-11-14 06:11] LABS: Venous Blood Gas Refer to POC result
[2023-11-14 06:44] LABS: Alanine Aminotransferase 19 U/L (0-31); Alkaline Phosphatase 63 U/L (39-117); Aspartate Amino Transferase 17 U/L (5-31); Bilirubin Total 0.7 mg/dL (0.0-1.0); Blood Urea Nitrogen 19 mg/dL (9-16); Calcium 8.2 mg/dL (8.4-10.2); Creatinine Clr Calc Pharmacy 77.1; Estimated Glomerular Filt Rate > 60; Glucose Random 89 mg/dL (60-115); Total Protein 4.8 g/dL (6.5-8.0)
[2023-11-14 07:02] LABS: Anion Gap 12 (12-20); Carbon Dioxide 29 mmol/L (22-29); Chloride 106 mmol/L (96-108); Sodium 144 mmol/L (135-145)
[2023-11-14 07:28] LABS: MANUAL DIFF FLAG NO
[2023-11-14] MEDS: Acetylcysteine 10 % 400 MG/4 ML VIAL INHALE ×2 (07:52→18:56)
[2023-11-14] MEDS: Albuterol/Iprat 2.5/0.5MG 3 ML AMPUL.NEB INHALE ×4 (07:52→18:56)
[2023-11-14 07:58] LABS: Basophils Percent Auto 0.3 % (0-2); Eosinophils Absolute Auto 0.1 X10*3/uL (0.0-0.4); Eosinophils Percent Auto 0.5 % (0-4); Hematocrit 32.5 % (37.0-47.0); Hemoglobin 10.4 g/dl (12.0-16.0); Imm Gran Abs Auto 0.09 X10*3/uL (0.00-0.03); Imm Gran Pct Auto 0.7 % (0.0-0.4); Lymphocytes Absolute Auto 0.9 X10*3/uL (1.2-4.9); Lymphocytes Percent Auto 7.5 % (20-40); Mean Corpuscular Hemoglobin 32.2 pg (27.0-33.0); Mean Corpuscular Volume 100.6 fL (80.0-98.0); Mean Platelet Volume 11.4 fL (9.4-12.3); Monocytes Absolute Auto 0.6 X10*3/uL (0.1-1.2); Monocytes Percent Auto 4.7 % (2-11); Neutrophils Absolute Auto 10.5 x10*3/uL (2.0-8.3); Neutrophils Percent Auto 86.3 % (45-73); Red Blood Count 3.23 X10*6/uL (4.20-5.50); Red Cell Distribution Width 13.4 % (11.0-16.0); White Blood Count 12.2 X10*3/uL (4.8-10.8)
[2023-11-14 08:04] LABS: Platelet Count 76 X10*3/uL (160-400)
[2023-11-14 08:24] LABS: Glucose, Whole Blood 95 mg/dL (60-115)
--- NOTE | 2023-11-14 08:56 | P.PNCC_ITS ---
Subjective Subjective Date of Service: 11/14/23 Critical Care Time (minutes): 45 Comment: On ventilator support this morning off vasopressor support hypoglycemia better with D5LR drip Physical Exam 2 Vital Signs: Vital Signs: Last Vital Signs Temp 99.1 F 11/14/23 08:00 Pulse 87 11/14/23 08:00 Resp 18 11/14/23 08:00 BP 143/57 H 11/14/23 08:00 Pulse Ox 94 11/14/23 08:00 O2 Del Method Mechanical Ventil ation 11/14/23 08:00 O2 Flow Rate 2 11/13/23 11:19 FiO2 30 11/14/23 08:00 Oxygen Flow Rate 2 11/10/23 07:30 BMI result Body Mass Index 36.9 General: not in acute distress, ill appearing and tired appearing Nutritional Appearance: well nourished and overweight Eyes: appearance normal, both eyes and all related structures; Alignment and Position: alignment normal and position normal Neck: No lymphadenopathy, no thyromegaly Resp: bilateral air entry equal, occasional added sounds present Cardio: Regular rate, regular rhythm; Heart sounds: S1 normal heart sound present and S2 normal heart sound present GI: soft, nontender, no guarding, no hepatosplenomegaly : bladder normal to inspection, bladder normal to palpation, no renal angle tenderness Skin: no rashes or lesions noted and elasticity normal Neuro: Sedated, no focal deficits Objective Data Labs 11/14/23 07:22 11/14/23 05:59 Labs: Laboratory Results - last 24 hr 11/13/23 11/13/23 11/13/23 08:46 10:37 11:10 WBC 21.0 H RBC 4.08 L Hgb 13.1 Hct 40.8 MCV 100.0 H MCH 32.1 MCHC 32.1 RDW 13.4 Plt Count 105 L MPV 11.2 Immature Gran % (Auto) Neut % (Auto) Lymph % (Auto) [place] % (Auto) Eos % (Auto) Baso % (Auto) Lymph # (Auto) [place] # (Auto) Eos # (Auto) Baso # (Auto) Abs Immat Gran (auto) Absolute Neuts (auto) Absolute Nucleated RBC 0.000 Nucleated RBC % (auto) 0.0 VBG pH VBG pCO2 VBG pO2 VBG HCO3 VBG O2 Saturation VBG Base Excess Sodium 140 Potassium 3.9 Chloride 103 Carbon Dioxide 24 Anion Gap 17 BUN 34 H Creatinine 0.90 Estim Creat Clear Calc 62.5 Estimated GFR > 60 POC Glucose 39 L* 185 H Random Glucose 63 Lactic Acid Calcium 9.1 Total Bilirubin AST ALT Alkaline Phosphatase Total Protein Albumin 11/13/23 11/13/23 11/13/23 14:27 15:35 17:37 WBC RBC Hgb Hct MCV MCH MCHC RDW Plt Count MPV Immature Gran % (Auto) Neut % (Auto) Lymph % (Auto) [place] % (Auto) Eos % (Auto) Baso % (Auto) Lymph # (Auto) [place] # (Auto) Eos # (Auto) Baso # (Auto) Abs Immat Gran (auto) Absolute Neuts (auto) Absolute Nucleated RBC Nucleated RBC % (auto) VBG pH VBG pCO2 VBG pO2 VBG HCO3 VBG O2 Saturation VBG Base Excess Sodium Potassium Chloride Carbon Dioxide Anion Gap BUN Creatinine Estim Creat Clear Calc Estimated GFR POC Glucose 68 81 Random Glucose Lactic Acid 1.0 Calcium Total Bilirubin AST ALT Alkaline Phosphatase Total Protein Albumin 11/13/23 11/13/23 11/14/23 19:45 23:27 04:54 WBC RBC Hgb Hct MCV MCH MCHC RDW Plt Count MPV Immature Gran % (Auto) Neut % (Auto) Lymph % (Auto) [place] % (Auto) Eos % (Auto) Baso % (Auto) Lymph # (Auto) [place] # (Auto) Eos # (Auto) Baso # (Auto) Abs Immat Gran (auto) Absolute Neuts (auto) Absolute Nucleated RBC Nucleated RBC % (auto) VBG pH VBG pCO2 VBG pO2 VBG HCO3 VBG O2 Saturation VBG Base Excess Sodium Potassium Chloride Carbon Dioxide Anion Gap BUN Creatinine Estim Creat Clear Calc Estimated GFR POC Glucose 78 86 83 Random Glucose Lactic Acid Calcium Total Bilirubin AST ALT Alkaline Phosphatase Total Protein Albumin 11/14/23 11/14/23 11/14/23 05:57 05:59 07:22 WBC Cancelled RBC Hgb Hct MCV MCH MCHC RDW Plt Count MPV Immature Gran % (Auto) Neut % (Auto) Lymph % (Auto) [place] % (Auto) Eos % (Auto) Baso % (Auto) Lymph # (Auto) [place] # (Auto) Eos # (Auto) Baso # (Auto) Abs Immat Gran (auto) Absolute Neuts (auto) Absolute Nucleated RBC Nucleated RBC % (auto) VBG pH 7.62 H* VBG pCO2 32 VBG pO2 61 VBG HCO3 33 H VBG O2 Saturation 95.0 VBG Base Excess 11.8 Sodium 144 Potassium 3.0 L D Chloride 106 Carbon Dioxide 29 Anion Gap 12 BUN 19 H Creatinine 0.73 Estim Creat Clear Calc 77.1 Estimated GFR > 60 POC Glucose Random Glucose 89 Lactic Acid Calcium 8.2 L D Total Bilirubin 0.7 AST 17 ALT 19 Alkaline Phosphatase 63 Total Protein 4.8 L Albumin 3.0 L 11/14/23 11/14/23 11/14/23 07:22 07:22 07:22 WBC 12.2 H RBC Cancelled 3.23 L D Hgb Cancelled 10.4 L D Hct Cancelled MCV MCH MCHC RDW Plt Count MPV Immature Gran % (Auto) Neut % (Auto) Lymph % (Auto) [place] % (Auto) Eos % (Auto) Baso % (Auto) Lymph # (Auto) [place] # (Auto) Eos # (Auto) Baso # (Auto) Abs Immat Gran (auto) Absolute Neuts (auto) Absolute Nucleated RBC Nucleated RBC % (auto) VBG pH VBG pCO2 VBG pO2 VBG HCO3 VBG O2 Saturation VBG Base Excess Sodium Potassium Chloride Carbon Dioxide Anion Gap BUN Creatinine Estim Creat Clear Calc Estimated GFR POC Glucose Random Glucose Lactic Acid Calcium Total Bilirubin AST ALT Alkaline Phosphatase Total Protein Albumin 11/14/23 11/14/23 11/14/23 07:22 07:22 07:22 WBC RBC Hgb Hct 32.5 L D MCV Cancelled 100.6 H MCH Cancelled 32.2 MCHC Cancelled RDW Plt Count MPV Immature Gran % (Auto) Neut % (Auto) Lymph % (Auto) [place] % (Auto) Eos % (Auto) Baso % (Auto) Lymph # (Auto) [place] # (Auto) Eos # (Auto) Baso # (Auto) Abs Immat Gran (auto) Absolute Neuts (auto) Absolute Nucleated RBC Nucleated RBC % (auto) VBG pH VBG pCO2 VBG pO2 VBG HCO3 VBG O2 Saturation VBG Base Excess Sodium Potassium Chloride Carbon Dioxide Anion Gap BUN Creatinine Estim Creat Clear Calc Estimated GFR POC Glucose Random Glucose Lactic Acid Calcium Total Bilirubin AST ALT Alkaline Phosphatase Total Protein Albumin 11/14/23 11/14/23 11/14/23 07:22 07:22 07:22 WBC RBC Hgb Hct MCV MCH MCHC 32.0 RDW Cancelled 13.4 Plt Count Cancelled 76 L D MPV Cancelled Immature Gran % (Auto) Neut % (Auto) Lymph % (Auto) [place] % (Auto) Eos % (Auto) Baso % (Auto) Lymph # (Auto) [place] # (Auto) Eos # (Auto) Baso # (Auto) Abs Immat Gran (auto) Absolute Neuts (auto) Absolute Nucleated RBC Nucleated RBC % (auto) VBG pH VBG pCO2 VBG pO2 VBG HCO3 VBG O2 Saturation VBG Base Excess Sodium Potassium Chloride Carbon Dioxide Anion Gap BUN Creatinine Estim Creat Clear Calc Estimated GFR POC Glucose Random Glucose Lactic Acid Calcium Total Bilirubin AST ALT Alkaline Phosphatase Total Protein Albumin 11/14/23 11/14/23 11/14/23 07:22 07:22 07:22 WBC RBC Hgb Hct MCV MCH MCHC RDW Plt Count MPV 11.4 Immature Gran % (Auto) Cancelled 0.7 H Neut % (Auto) Cancelled 86.3 H Lymph % (Auto) Cancelled [place] % (Auto) Eos % (Auto) Baso % (Auto) Lymph # (Auto) [place] # (Auto) Eos # (Auto) Baso # (Auto) Abs Immat Gran (auto) Absolute Neuts (auto) Absolute Nucleated RBC Nucleated RBC % (auto) VBG pH VBG pCO2 VBG pO2 VBG HCO3 VBG O2 Saturation VBG Base Excess Sodium Potassium Chloride Carbon Dioxide Anion Gap BUN Creatinine Estim Creat Clear Calc Estimated GFR POC Glucose Random Glucose Lactic Acid Calcium Total Bilirubin AST ALT Alkaline Phosphatase Total Protein Albumin 11/14/23 11/14/23 11/14/23 07:22 07:22 07:22 WBC RBC Hgb Hct MCV MCH MCHC RDW Plt Count MPV Immature Gran % (Auto) Neut % (Auto) Lymph % (Auto) 7.5 L [place] % (Auto) Cancelled 4.7 Eos % (Auto) Cancelled 0.5 Baso % (Auto) Cancelled Lymph # (Auto) [place] # (Auto) Eos # (Auto) Baso # (Auto) Abs Immat Gran (auto) Absolute Neuts (auto) Absolute Nucleated RBC Nucleated RBC % (auto) VBG pH VBG pCO2 VBG pO2 VBG HCO3 VBG O2 Saturation VBG Base Excess Sodium Potassium Chloride Carbon Dioxide Anion Gap BUN Creatinine Estim Creat Clear Calc Estimated GFR POC Glucose Random Glucose Lactic Acid Calcium Total Bilirubin AST ALT Alkaline Phosphatase Total Protein Albumin 11/14/23 11/14/23 11/14/23 07:22 07:22 07:22 WBC RBC Hgb Hct MCV MCH MCHC RDW Plt Count MPV Immature Gran % (Auto) Neut % (Auto) Lymph % (Auto) [place] % (Auto) Eos % (Auto) Baso % (Auto) 0.3 Lymph # (Auto) Cancelled 0.9 L [place] # (Auto) Cancelled 0.6 Eos # (Auto) Cancelled Baso # (Auto) Abs Immat Gran (auto) Absolute Neuts (auto) Absolute Nucleated RBC Nucleated RBC % (auto) VBG pH VBG pCO2 VBG pO2 VBG HCO3 VBG O2 Saturation VBG Base Excess Sodium Potassium Chloride Carbon Dioxide Anion Gap BUN Creatinine Estim Creat Clear Calc Estimated GFR POC Glucose Random Glucose Lactic Acid Calcium Total Bilirubin AST ALT Alkaline Phosphatase Total Protein Albumin 11/14/23 11/14/23 11/14/23 07:22 07:22 07:22 WBC RBC Hgb Hct MCV MCH MCHC RDW Plt Count MPV Immature Gran % (Auto) Neut % (Auto) Lymph % (Auto) [place] % (Auto) Eos % (Auto) Baso % (Auto) Lymph # (Auto) [place] # (Auto) Eos # (Auto) 0.1 Baso # (Auto) Cancelled 0.0 Abs Immat Gran (auto) Cancelled 0.09 H Absolute Neuts (auto) Cancelled Absolute Nucleated RBC Nucleated RBC % (auto) VBG pH VBG pCO2 VBG pO2 VBG HCO3 VBG O2 Saturation VBG Base Excess Sodium Potassium Chloride Carbon Dioxide Anion Gap BUN Creatinine Estim Creat Clear Calc Estimated GFR POC Glucose Random Glucose Lactic Acid Calcium Total Bilirubin AST ALT Alkaline Phosphatase Total Protein Albumin 11/14/23 11/14/23 11/14/23 07:22 07:22 07:22 WBC RBC Hgb Hct MCV MCH MCHC RDW Plt Count MPV Immature Gran % (Auto) Neut % (Auto) Lymph % (Auto) [place] % (Auto) Eos % (Auto) Baso % (Auto) Lymph # (Auto) [place] # (Auto) Eos # (Auto) Baso # (Auto) Abs Immat Gran (auto) Absolute Neuts (auto) 10.5 H Absolute Nucleated RBC Cancelled 0.000 Nucleated RBC % (auto) Cancelled 0.0 VBG pH VBG pCO2 VBG pO2 VBG HCO3 VBG O2 Saturation VBG Base Excess Sodium Potassium Chloride Carbon Dioxide Anion Gap BUN Creatinine Estim Creat Clear Calc Estimated GFR POC Glucose Random Glucose Lactic Acid Calcium Total Bilirubin AST ALT Alkaline Phosphatase Total Protein Albumin 11/14/23 08:21 WBC RBC Hgb Hct MCV MCH MCHC RDW Plt Count MPV Immature Gran % (Auto) Neut % (Auto) Lymph % (Auto) [place] % (Auto) Eos % (Auto) Baso % (Auto) Lymph # (Auto) [place] # (Auto) Eos # (Auto) Baso # (Auto) Abs Immat Gran (auto) Absolute Neuts (auto) Absolute Nucleated RBC Nucleated RBC % (auto) VBG pH VBG pCO2 VBG pO2 VBG HCO3 VBG O2 Saturation VBG Base Excess Sodium Potassium Chloride Carbon Dioxide Anion Gap BUN Creatinine Estim Creat Clear Calc Estimated GFR POC Glucose 95 Random Glucose Lactic Acid Calcium Total Bilirubin AST ALT Alkaline Phosphatase Total Protein Albumin Microbiology Microbiology Results: Microbiology 11/13/23 13:13 Sputum - Suctioned Gram Stain - Final 11/02/23 13:18 Blood - Venous Blood Culture - Final No growth after 5 days. 11/02/23 13:18 Blood - Venous Blood Culture - Final No growth after 5 days. 10/30/23 19:59 Blood - Venous Blood Culture - Final No growth after 5 days. 10/30/23 19:11 Blood - Venous Blood Culture - Final Enterococcus faecalis Progress Note: A&P Assessment and plan (1) Acute encephalopathy: Status: Acute (2) Aspiration pneumonia: Status: Acute (3) Acute hypoxemic respiratory failure: Status: Acute (4) Atrial fibrillation with rapid ventricular response: Status: Acute (5) Acute respiratory failure with hypoxia: Status: Acute (6) Altered mental state: Status: Acute (7) COPD exacerbation: Status: Acute Plan 78-year-old lady with PMH of COPD, heart failure with preserved ejection fraction, paroxysmal atrial fibrillation on Eliquis, gout, insulin-dependent diabetes mellitus is admitted to the hospital on 10/30/2023 due to altered mental status thought to be secondary to Enterococcus faecalis bacteremia. The possible source of bacteremia is hepatobiliary as the CT and MRI of the abdomen showed dilated bile ducts. Patient has been increasingly drowsy and this morning had excessive secretion and was actively aspirating her secretion so MICU was consulted and intubated and placed on ventilator support on 11/13/2023. Apparently this patient has been in and out of the hospital several times in the past 5 months and her baseline quality life is very poor. She at multiple instances told her family that she did not want to live a life like this, she had episodes of altered sensorium and drowsiness even prior to hospitalization Neuro: Acute encephalopathy possibly due to metabolic encephalopathy On propofol for sedation, as needed fentanyl for analgesia, will titrate for weanign from ventilator Close neurological status monitoring in the ICU every hour Cardiac: Cardiogenic Shock: Improved, off pressors Paroxysmal atrial fibrillation: We will restart Oral diltiazem If needed digoxin loading dose and then daily digoxin Respiratory: Acute hypoxemic respiratory failure due to aspiration pneumonia Currently on ventilator support On PRVC mode FiO2: 50%, PEEP 5, TV 360, RR 24, will place on pressure support for possible weaning from ventilator. Will see how she does on pressure support trials Peak pressures and plateau pressures are under the curve Ventilator management bundle with head end elevation, aspiration precaution, chlorhexidine mouthwash, daily awakening trials, daily spontaneous breathing trials sputum cultures GI: We will start on tube feeds will add erythromycin IV for better gastric motility Moderate malnutition: high protein and calorie nutrition Renal: Baseline creatinine normal, creatinine today is 0.73 We will closely monitor I's and O's Avoid nephrotoxic medications Heme: Chronic anemia, closely monitor H&H, transfuse for hemoglobin less than 7 grams/deciliter Endocrine: Hypoglycemia: on D5LR drip, sugars better will withold lantus Infectious disease: We will send pancultures again Received IV daptomycin for several days, currently on Zosyn. Previously treated with cefepime and ceftriaxone Musculoskeletal: Decubitus ulcer prevention protocol Lines: Peripherals Zafar catheter fro urinary retention Prophylaxis: Lovenox, pantoprazole Total critical care time spent is about 45 minutes on ventilator management, sedation management, close neurological status monitoring at this time is excluding any procedures and discussion with family Quality Stroke Does the patient have a stroke diagnosis?: No VTE Prior VTE?: No VTE Risk Level:: Medical - moderate - high VTE Device Contraindication: Treatment Not Indicated VTE Drug Contraindication: N/A - Med Ordered
[2023-11-14] MEDS: Sennosides/Docusate Sodium TABLET 2 TAB PO (10:05)
[2023-11-14] MEDS: Apixaban 5 MG TABLET PO (10:05)
[2023-11-14] MEDS: allopurinoL 300 MG TABLET 150 MG PO (10:05)
[2023-11-14] MEDS: Chlorhexidine Gluc Oral Rinse 15 ML MOUTHWASH BUCCAL (10:08)
[2023-11-14] MEDS: polyethylene glycoL 3350 17 GM POWD.PACK PO (10:09)
[2023-11-14] MEDS: 0.9 % Sodium Chloride Flush 3 ML SYRINGE IVFLUSH ×3 (10:20→23:16)
--- NOTE | 2023-11-14 10:42 | MHC.CLN ---
PT IS MODERATELY MALNOURISHED MILDLY DEPLETED SUBCUTANEOUS FAT AND MUSCLE MASS WITH CHRONIC ACUTE ILLNESSES INCREASING NUTRITION RISK-CURRENTLY WITH PNA PT IS INTUBATED AND SEDATED CURRENTLY NPO IF TF NEEDED; RECOMMEND PROMOTE AT MAX GOAL RATE 50ML/HR WITH 240ML FWF Q 8 HRS TO PROVIDE 1200KCALS (1739KCALS WITH SEDATION), 75G PROTEIN (1.1G/KG), 1727ML TOTAL FREE WATER FROM FORMULA AND FLUSHES (25ML/KG) MONITOR TOLERANCE, RESIDUALS AND LYTES IF PT IS EXTUBATED; RECOMMEND PHOTOGRAMMETRIC TECHNICIAN EVAL FOR APPROPRIATE DIET CONSISTENCY R/T PREVIOUS ASPIRATION PER MD FOLLOWING WITH TEAM SEE ALSO FULL CLINICAL NUTRITION ASSESSMENT
[2023-11-14 12:13] LABS: Glucose, Whole Blood 126 mg/dL (60-115)
--- NOTE | 2023-11-14 14:31 | MHC.SLORD ---
Speech Language Pathology Order Status: OUTSOLE CUTTER MACHINE clinical swallow evaluation order received. Pt extubated early afternoon, OUTSOLE CUTTER MACHINE to evaluate tomorrow 11/14.
--- NOTE | 2023-11-14 15:22 | MHC.CM.PN ---
Patient from home with [facility]. She has been DX with Bacteremia. Discharge plan was home with LT IV ABX. [facility] was planned to resume services. [facility] had [facility] for Home infusion. Patient aspirated on IMC. She was transferred to ICU and intubated. She was extubated today. HCP is on file Corky Ross [phone]. DP to be determined by patients recovery. She will need IV ABX LT either Home infusion or SNF. CM will continue to follow.
[2023-11-14] MEDS: Ketorolac Tromethamine 15 MG/ML VIAL IM (15:34)
[2023-11-14] MEDS: Acetaminophen 1,000 MG/100 ML PIGGYBACK 400 MG IV (17:01)
[2023-11-14 18:02] LABS: Glucose, Whole Blood 130 mg/dL (60-115)
[2023-11-14] MEDS: Albumin Human 25 % 100 ML IV ×2 (22:01→23:04)
[2023-11-14] MEDS: Ketorolac Tromethamine 15 MG/ML VIAL IVPUSH (23:16)
[2023-11-14 23:23] LABS: Glucose, Whole Blood 170 mg/dL (60-115)
[2023-11-15] VITALS (22 sets, daily range): BP systolic 121–154; BP diastolic 52–73; PULSE 72–98; RESP 17–25; TEMP 36.6–36.9; O2SAT 89–99
[2023-11-15] MEDS: Dextrose 5 % and Lactated Ring 1,000 ML 80 ML IVCONT ×2 (02:08→16:28)
[2023-11-15] MEDS: Piperacillin Sodium/Tazobactam 4.5 GM in 0.9 % Sodium Chloride 100 ML IV ×4 (03:12→20:09)
[2023-11-15 06:03] LABS: VBG Base Excess 10.4 mmol/L; VBG HCO3 33 mmol/L (22-26); VBG pCO2 40 mmHg; VBG pH 7.53 (7.32-7.43); VBG pO2 58 mmHg
[2023-11-15 06:06] LABS: MANUAL DIFF FLAG NO
[2023-11-15 06:08] LABS: Eosinophils Percent Auto 0.6 % (0-4); Hematocrit 27.3 % (37.0-47.0); Hemoglobin 8.6 g/dl (12.0-16.0); Imm Gran Abs Auto 0.04 X10*3/uL (0.00-0.03); Imm Gran Pct Auto 0.7 % (0.0-0.4); Lymphocytes Absolute Auto 0.4 X10*3/uL (1.2-4.9); Mean Corpuscular HGB Conc 31.5 g/dl (31.0-35.0); Mean Corpuscular Volume 101.5 fL (80.0-98.0); Mean Platelet Volume 9.9 fL (9.4-12.3); Monocytes Absolute Auto 0.1 X10*3/uL (0.1-1.2); Monocytes Percent Auto 2.2 % (2-11); Neutrophils Absolute Auto 4.8 x10*3/uL (2.0-8.3); Neutrophils Percent Auto 88.5 % (45-73); Red Blood Count 2.69 X10*6/uL (4.20-5.50); Red Cell Distribution Width 13.5 % (11.0-16.0); White Blood Count 5.4 X10*3/uL (4.8-10.8)
[2023-11-15 06:08] LABS: Venous Blood Gas Refer to POC result
[2023-11-15 06:10] LABS: Platelet Count 63 X10*3/uL (160-400)
[2023-11-15] MEDS: Morphine Sulfate 2 MG/ML CARTRIDGE IVPUSH (06:13)
[2023-11-15 06:26] LABS: Alanine Aminotransferase 16 U/L (0-31); Albumin Level 3.2 g/dL (3.5-5.0); Alkaline Phosphatase 62 U/L (39-117); Anion Gap 11 (12-20); Aspartate Amino Transferase 12 U/L (5-31); Blood Urea Nitrogen 10 mg/dL (9-16); Calcium 8.2 mg/dL (8.4-10.2); Carbon Dioxide 29 mmol/L (22-29); Chloride 110 mmol/L (96-108); Creatinine Clr Calc Pharmacy 80.8; Estimated Glomerular Filt Rate > 60; Glucose Random 176 mg/dL (60-115); Sodium 147 mmol/L (135-145); Total Protein 4.9 g/dL (6.5-8.0)
[2023-11-15] MEDS: 0.9 % Sodium Chloride Flush 3 ML SYRINGE IVFLUSH ×2 (07:23→15:08)
[2023-11-15] MEDS: Potassium Chloride/H20 10 MEQ/100 ML PIGGYBACK 100 MEQ IV ×4 (07:23→10:39)
[2023-11-15] MEDS: Albuterol/Iprat 2.5/0.5MG 3 ML AMPUL.NEB INHALE ×4 (08:24→19:12)
[2023-11-15] MEDS: Acetylcysteine 10 % 400 MG/4 ML VIAL INHALE ×2 (08:24→19:12)
[2023-11-15] MEDS: Lidocaine 4 % Patch ADH..PATCH 1 PATCH TRANSDERMA (08:36)
[2023-11-15] MEDS: Chlorhexidine Gluc Oral Rinse 15 ML MOUTHWASH BUCCAL (08:36)
[2023-11-15] MEDS: Nicotine 14 MG PATCH.TD24 TRANSDERMA (08:37)
[2023-11-15] MEDS: Fluticasone/Vilanterol 100/25 BLST.W.DEV 1 PUFF INHALE (08:52)
--- NOTE | 2023-11-15 08:53 | P.PNCC_ITS ---
Subjective Subjective Date of Service: 11/15/23 Critical Care Time (minutes): 35 Comment: No new events overnight Extubated yesterday, tolerating liberation from ventilator well Patient more alert and has good cough reflex NPO, waiting for speech eval Physical Exam 2 Vital Signs: Vital Signs: Last Vital Signs Temp 98.4 F 11/15/23 08:00 Pulse 82 11/15/23 08:48 Resp 22 H 11/15/23 08:48 BP 145/59 H 11/15/23 08:00 Pulse Ox 97 11/15/23 08:48 O2 Del Method Nasal Cannula 11/15/23 08:00 O2 Flow Rate 2 11/15/23 08:00 FiO2 30 11/14/23 12:00 Oxygen Flow Rate 2 11/10/23 07:30 BMI result Body Mass Index 36.9 General: Not in any acute distress, chronically ill appearing Nutritional Appearance: well nourished and overweight Eyes: appearance normal, both eyes and all related structures; Alignment and Position: alignment normal and position normal Neck: No lymphadenopathy, no thyromegaly Resp: bilateral air entry equal, occasional added sounds present Cardio: Regular rate, regular rhythm; Heart sounds: S1 normal heart sound present and S2 normal heart sound present GI: soft, nontender, no guarding, no hepatosplenomegaly : bladder normal to inspection, bladder normal to palpation, no renal angle tenderness Skin: no rashes or lesions noted and elasticity normal Neuro: oriented to person, oriented to place, oriented to time and moves all extremities Objective Data Labs 11/15/23 05:56 11/15/23 05:56 Labs: Laboratory Results - last 24 hr 11/14/23 11/14/23 11/14/23 12:07 17:56 23:18 WBC RBC Hgb Hct MCV MCH MCHC RDW Plt Count MPV Immature Gran % (Auto) Neut % (Auto) Lymph % (Auto) [place] % (Auto) Eos % (Auto) Baso % (Auto) Lymph # (Auto) [place] # (Auto) Eos # (Auto) Baso # (Auto) Abs Immat Gran (auto) Absolute Neuts (auto) Absolute Nucleated RBC Nucleated RBC % (auto) VBG pH VBG pCO2 VBG pO2 VBG HCO3 VBG O2 Saturation VBG Base Excess Sodium Potassium Chloride Carbon Dioxide Anion Gap BUN Creatinine Estim Creat Clear Calc Estimated GFR POC Glucose 126 H 130 H 170 H Random Glucose Calcium Total Bilirubin AST ALT Alkaline Phosphatase Total Protein Albumin 11/15/23 11/15/23 05:53 05:56 WBC 5.4 RBC 2.69 L Hgb 8.6 L Hct 27.3 L MCV 101.5 H MCH 32.0 MCHC 31.5 RDW 13.5 Plt Count 63 L MPV 9.9 Immature Gran % (Auto) 0.7 H Neut % (Auto) 88.5 H Lymph % (Auto) 8.0 L [place] % (Auto) 2.2 Eos % (Auto) 0.6 Baso % (Auto) 0.0 Lymph # (Auto) 0.4 L [place] # (Auto) 0.1 Eos # (Auto) 0.0 Baso # (Auto) 0.0 Abs Immat Gran (auto) 0.04 H Absolute Neuts (auto) 4.8 Absolute Nucleated RBC 0.000 Nucleated RBC % (auto) 0.0 VBG pH 7.53 H VBG pCO2 40 VBG pO2 58 VBG HCO3 33 H VBG O2 Saturation 93.0 VBG Base Excess 10.4 Sodium 147 H Potassium 3.0 L Chloride 110 H Carbon Dioxide 29 Anion Gap 11 L BUN 10 Creatinine 0.64 Estim Creat Clear Calc 80.8 Estimated GFR > 60 POC Glucose Random Glucose 176 H Calcium 8.2 L Total Bilirubin 1.0 AST 12 ALT 16 Alkaline Phosphatase 62 Total Protein 4.9 L Albumin 3.2 L Microbiology Microbiology Results: Microbiology 11/13/23 13:13 Sputum - Suctioned Gram Stain - Final 11/13/23 13:13 Sputum - Suctioned Sputum Culture - Final Corynebacterium species Gram negative deangelo 11/13/23 15:35 Blood - Venous Blood Culture - Preliminary No growth after 24 hours. 11/13/23 15:35 Blood - Venous Blood Culture - Preliminary No growth after 24 hours. 11/02/23 13:18 Blood - Venous Blood Culture - Final No growth after 5 days. 11/02/23 13:18 Blood - Venous Blood Culture - Final No growth after 5 days. 10/30/23 19:59 Blood - Venous Blood Culture - Final No growth after 5 days. 10/30/23 19:11 Blood - Venous Blood Culture - Final Enterococcus faecalis Progress Note: A&P Assessment and plan (1) Acute encephalopathy: Status: Acute (2) Aspiration pneumonia: Status: Acute (3) Acute hypoxemic respiratory failure: Status: Acute (4) Altered mental state: Status: Acute (5) Bacteremia due to Enterococcus: Status: Acute Plan 78-year-old lady with PMH of COPD, heart failure with preserved ejection fraction, paroxysmal atrial fibrillation on Eliquis, gout, insulin-dependent diabetes mellitus is admitted to the hospital on 10/30/2023 due to altered mental status thought to be secondary to Enterococcus faecalis bacteremia. The possible source of bacteremia is hepatobiliary as the CT and MRI of the abdomen showed dilated bile ducts. Patient has been increasingly drowsy and this morning had excessive secretion and was actively aspirating her secretion so MICU was consulted and intubated and placed on ventilator support on 11/13/2023. Apparently this patient has been in and out of the hospital several times in the past 5 months and her baseline quality life is very poor. She at multiple instances told her family that she did not want to live a life like this, she had episodes of altered sensorium and drowsiness even prior to hospitalization Neuro: Acute encephalopathy possibly due to metabolic encephalopathy and morphine use for pain Pain control with as needed ketorolac IM Cardiac: Blood pressure stable Paroxysmal atrial fibrillation: We will restart Oral diltiazem if speech clears her for swallow If needed digoxin loading dose and then daily digoxin Respiratory: Acute hypoxemic respiratory failure due to aspiration pneumonia Extubated yesterday, tolerating liberation from ventilator the Follow up with sputum culture for aspiration pneumonia on mucomyst for mucolysis GI: Continue erythromycin IV for better gastric motility Moderate malnutition: high protein and calorie nutrition Renal: Baseline creatinine normal, creatinine today is 0.64 We will closely monitor I's and O's Avoid nephrotoxic medications Heme: Chronic anemia, closely monitor H&H, transfuse for hemoglobin less than 7 grams/deciliter Endocrine: Hypoglycemia: on D5LR drip, sugars better Has sliding scale insulin lantus withheld Infectious disease: Pending pancultures Received IV daptomycin for several days, currently on Zosyn. Previously treated with cefepime and ceftriaxone Musculoskeletal: Decubitus ulcer prevention protocol Lines: Peripherals Zafar catheter fro urinary retention Prophylaxis: Lovenox, pantoprazole We will transfer her back to the floor Quality Stroke Does the patient have a stroke diagnosis?: No VTE Prior VTE?: No VTE Risk Level:: Medical - moderate - high VTE Device Contraindication: Treatment Not Indicated VTE Drug Contraindication: N/A - Med Ordered
[2023-11-15] MEDS: Ketorolac Tromethamine 15 MG/ML VIAL IM ×3 (09:41→22:15)
--- NOTE | 2023-11-15 09:55 | MHC.CLN ---
F/U PT IS MODERATELY MALNOURISHED PT WITH MILDLY DEPLETED SUBCUTANEOUS FAT AND MUSCLE MASS WITH CHRONIC ACUTE ILLNESSES INCREASING NUTRITION RISK-CURRENTLY WITH PNA PT WAS EXTUBATED YESTERDAY CURRENTLY NPO AWAITING ARCHERY INSTRUCTOR FOR APPROPRIATE DIET CONSISTENCY WHEN DIET TO ADVANCE RECOMMEND 1800DM DIET IN ADDIITON TO ARCHERY INSTRUCTOR RECOMMENDATIONS WILL CONSIDER ADDING GELATEIN TID WITH MEALS TO INCREASE PO PROTEIN INTAKE FOLLOWING WITH TEAM
[2023-11-15] MEDS: polyethylene glycoL 3350 17 GM POWD.PACK PO (11:38)
[2023-11-15] MEDS: Apixaban 5 MG TABLET PO ×2 (11:38→20:01)
[2023-11-15] MEDS: allopurinoL 300 MG TABLET 150 MG PO (11:38)
[2023-11-15] MEDS: Sennosides/Docusate Sodium TABLET 2 TAB PO ×2 (11:38→20:02)
[2023-11-15 12:03] LABS: Glucose, Whole Blood 212 mg/dL (60-115)
--- NOTE | 2023-11-15 12:04 | MHC.SL.SWA ---
Risk of Aspiration Due to: s/p extubation Dysphasia Diet Status: NO CHANGE Liquid Consistency and Strategies for Safe Swallow: Liquid Intake Recommendation: [place] Thick Liquid Intake Strategies: No Straws Double Swallow Solid Food Consistency: Dietary Recommendations: Pureed (NDD1) Oral Medication Intake: Crushed with Puree Please contact the pharmacy regarding appropriate crushable or liquid drug formulations that are available whenever modified delivery is recommended. Compensatory Strategies and Precautions to be Taken for Safe Swallow: Sitting Upright (90 deg) Alternate liquids & solids Small bites and sips Slow rate of ingestion Supervision While Eating and Drinking for Safe Swallow: Total Supervision (1:1) Swallowing Recommended Treatments: Compens. Strategy Educat. Recommendation for Speech: Inpatient Speech Therapy Comment: Recommend UPGRADE to PUREE solids (NDD1) and NECTAR THICK liquids (NO STRAW) w/ pills crushed in puree. Pt requires 1-1 supervision with consistent cues to swallow 2x each bite/sip. Aspiration precautions apply. Frequency/Duration: M-F Heel Seat Filler Clinican/Clinical Fellow: No Supervisory Statement: I have reviewed and agree with the student/clinical fellow's documentation: N/A Speech Language Pathologist: Bhakti Mims M.A., CCC-PLATEN PRESS OPERATOR
[2023-11-15] MEDS: Acetaminophen 325 MG TABLET 975 MG PO ×2 (13:23→20:00)
[2023-11-15] MEDS: dilTIAZem HCL 30 MG TABLET 90 MG PO ×3 (13:24→20:01)
[2023-11-15] MEDS: Nystatin Oral Susp 500,000 UNIT/5 ML ORAL.SUSP 500000 UNIT PO ×3 (13:24→20:02)
[2023-11-15 16:40] LABS: Glucose, Whole Blood 348 mg/dL (60-115)
[2023-11-15] MEDS: Insulin Lispro 100 UNIT/ML 3 ML VIAL SUBCUT ×2 (17:10→22:15)
[2023-11-15 18:13] LABS: Glucose, Whole Blood 259 mg/dL (60-115)
[2023-11-15] MEDS: guaiFENesin LA 600 MG TAB.ER.12H 1200 MG PO (20:01)
[2023-11-15 22:13] LABS: Glucose, Whole Blood 212 mg/dL (60-115)
[2023-11-15] MEDS: Insulin Glargine,Hum.rec.anlog 100 UNIT/ML 10 ML VIAL 15 UNIT SUBCUT (22:16)
[2023-11-16] VITALS (12 sets, daily range): BP systolic 141–174; BP diastolic 65–82; PULSE 73–99; RESP 18–22; TEMP 36.3–37.1; O2SAT 92–98; BMI 37.3
[2023-11-16] MEDS: 0.9 % Sodium Chloride Flush 3 ML SYRINGE IVFLUSH ×4 (02:34→20:42)
[2023-11-16] MEDS: Piperacillin Sodium/Tazobactam 4.5 GM in 0.9 % Sodium Chloride 100 ML IV ×4 (02:37→20:41)
[2023-11-16] MEDS: Ketorolac Tromethamine 15 MG/ML VIAL IM (05:20)
[2023-11-16 07:56] LABS: Glucose, Whole Blood 97 mg/dL (60-115)
[2023-11-16 08:45] LABS: Hematocrit 30.1 % (37.0-47.0); Hemoglobin 9.6 g/dl (12.0-16.0); Mean Corpuscular HGB Conc 31.9 g/dl (31.0-35.0); Mean Corpuscular Hemoglobin 32.1 pg (27.0-33.0); Mean Corpuscular Volume 100.7 fL (80.0-98.0); Mean Platelet Volume 11.9 fL (9.4-12.3); PLT CLUMP 1; Red Blood Count 2.99 X10*6/uL (4.20-5.50); Red Cell Distribution Width 13.3 % (11.0-16.0)
[2023-11-16] MEDS: dilTIAZem HCL 30 MG TABLET 90 MG PO (08:49)
[2023-11-16] MEDS: Amiodarone HCL 200 MG TABLET PO (08:49)
[2023-11-16] MEDS: allopurinoL 300 MG TABLET 150 MG PO (08:50)
[2023-11-16] MEDS: Apixaban 5 MG TABLET PO ×2 (08:50→20:41)
[2023-11-16] MEDS: guaiFENesin LA 600 MG TAB.ER.12H 1200 MG PO ×2 (08:50→20:40)
[2023-11-16] MEDS: PARoxetine HCL 20 MG TABLET PO (08:50)
[2023-11-16] MEDS: Acetaminophen 325 MG TABLET 975 MG PO ×2 (08:50→19:25)
[2023-11-16] MEDS: Nicotine 14 MG PATCH.TD24 TRANSDERMA (08:51)
[2023-11-16] MEDS: Lidocaine 4 % Patch ADH..PATCH 1 PATCH TRANSDERMA (08:52)
[2023-11-16] MEDS: Acetylcysteine 10 % 400 MG/4 ML VIAL INHALE (08:54)
[2023-11-16] MEDS: Albuterol/Iprat 2.5/0.5MG 3 ML AMPUL.NEB INHALE ×2 (08:54→15:34)
[2023-11-16] MEDS: Fluticasone/Vilanterol 100/25 BLST.W.DEV 1 PUFF INHALE (08:55)
[2023-11-16 08:59] LABS: Alanine Aminotransferase 20 U/L (0-31); Albumin Level 3.2 g/dL (3.5-5.0); Alkaline Phosphatase 74 U/L (39-117); Anion Gap 13 (12-20); Aspartate Amino Transferase 19 U/L (5-31); Bilirubin Direct 0.3 mg/dL (0.0-0.5); Bilirubin Total 0.9 mg/dL (0.0-1.0); Blood Urea Nitrogen 13 mg/dL (9-16); Calcium 8.3 mg/dL (8.4-10.2); Carbon Dioxide 25 mmol/L (22-29); Chloride 113 mmol/L (96-108); Creatinine Clr Calc Pharmacy 91.2; Estimated Glomerular Filt Rate > 60; Glucose Random 99 mg/dL (60-115); Magnesium 2.2 mg/dL (1.6-2.6); Sodium 147 mmol/L (135-145); Total Protein 5.5 g/dL (6.5-8.0)
[2023-11-16 09:21] LABS: Platelet Count 64 X10*3/uL (160-400); White Blood Count 5.5 X10*3/uL (4.8-10.8)
[2023-11-16] MEDS: Nystatin Oral Susp 500,000 UNIT/5 ML ORAL.SUSP 500000 UNIT PO ×4 (09:26→20:41)
[2023-11-16 11:21] LABS: Glucose, Whole Blood 129 mg/dL (60-115)
[2023-11-16] MEDS: Ketorolac Tromethamine 15 MG/ML VIAL IVPUSH ×2 (12:33→20:35)
--- NOTE | 2023-11-16 13:00 | MHC.CM.PN ---
Pt is not yet ready for DC, she is still requiring acute level of care. DCP is STR. CM will follow and assist with DCP.
--- NOTE | 2023-11-16 13:06 | MHC.CLN ---
F/U PT IS MODERATELY MALNOURISHED PT WITH MILDLY DEPLETED SUBCUTANEOUS FAT AND MUSCLE MASS WITH CHRONIC ACUTE ILLNESSES INCREASING NUTRITION RISK-CURRENTLY WITH PNA PT TRANSFERRED TO MEDICAL FLOOR DIET ADVANCED TO 2000DM DIET PUREED WITH NT LIQ PER INTERNET RESEARCHER PO INTAKE 25, 75, 75% X3 MEALS RECOMMEND ADDING GELATEIN TID WITH MEALS TO INCREASE PO PROTEIN INTAKE MONITOR PO INTAKE AND ENCOURAGE SUPPLEMENTS
--- NOTE | 2023-11-16 14:38 | HO.PM.IMPN ---
Subjective Subjective Date of Service: 11/16/23 Interval History: extubated 2d ago stepped down from ICU to telemetry yesterday AF controlled on 2L O2 denies dyspnea or cough no fever no abd pain Review of Systems Review of Systems: Yes all other systems are reviewed and are negative Physical Exam Vital Signs: Vital Signs: Last Vital Signs Temp 97.4 F 11/16/23 11:37 Pulse 84 11/16/23 11:37 Resp 22 H 11/16/23 08:57 BP 145/72 H 11/16/23 11:37 Pulse Ox 96 11/16/23 11:37 O2 Del Method Nasal Cannula 11/16/23 11:37 O2 Flow Rate 2 11/16/23 11:37 FiO2 30 11/14/23 12:00 Oxygen Flow Rate 2 11/10/23 07:30 BMI result Body Mass Index 37.3 Gen: weak, chronically ill HEENT: sclera anicteric, moist mucus membranes Neck: supple Lungs: clear to auscultation bilaterally Heart: irregular, no murmurs Abd: soft, non-tender, non-distended Ext: no edema Skin: warm/well-perfused Neuro: alert and oriented x3, no focal findings Psych: appropriate affect Objective Data Active Medications Acetaminophen (Acetaminophen 325 Mg Tablet) 975 mg PO Q6H PRN PRN Reason: mild pain, headache or fever Last Admin: 11/16/23 08:50 Dose: 975 mg Documented By: CHARLIE Acetylcysteine (Acetylcysteine 10 % 400 Mg/4 Ml Vial) 400 mg INHALE RBID [facility] Last Admin: 11/16/23 08:54 Dose: 400 mg Documented By: ADEOLA Albuterol Sulfate (Albuterol Sulfate (0.083%) 2.5 Mg/3 Ml Vial.Neb) 2.5 mg INHALE Q2H PRN PRN Reason: Shortness of Breath/Wheezing Albuterol/Ipratropium (Albuterol/Iprat 2.5/0.5mg 3 Ml Ampul.Neb) 3 ml INHALE RQ4H WHILE AWAKE [facility] Last Admin: 11/16/23 11:29 Dose: Not Given Documented By: ADEOLA Non-Admin Reason: Patient Refused Allopurinol (Allopurinol 300 Mg Tablet) 150 mg PO DAILY [facility] Last Admin: 11/16/23 08:50 Dose: 150 mg Documented By: CHARLIE Amiodarone HCl (Amiodarone Hcl 200 Mg Tablet) 200 mg PO DAILY [facility] Last Admin: 11/16/23 08:49 Dose: 200 mg Documented By: CHARLIE Apixaban (Apixaban 5 Mg Tablet) 5 mg PO BID [facility] Last Admin: 11/16/23 08:50 Dose: 5 mg Documented By: CHARLIE Diltiazem HCl (Diltiazem Hcl Cd 180 Mg Cap.Er.24h) 360 mg PO DAILY [facility]; Protocol Docusate Sodium (Docusate Sodium 100 Mg Capsule) 100 mg PO BID PRN PRN Reason: constipation Fluticasone/Vilanterol (Fluticasone/Vilanterol 100/25 Blst.W.Dev) 1 puff INHALE RDAILY [facility] Last Admin: 11/16/23 08:55 Dose: 1 puff Documented By: ADEOLA Glucose (Glucose Gel 15 Gm Gel..Gram.) 15 gm PO Q15M PRN; Protocol PRN Reason: per Hypoglycemia Standing Ord. Guaifenesin (Guaifenesin La 600 Mg Tab.Er.12h) 1,200 mg PO BID [facility] Last Admin: 11/16/23 08:50 Dose: 1,200 mg Documented By: CHARLIE Piperacillin Sod/Tazobactam (Sod 4.5 gm/ Sodium Chloride) 100 mls @ 200 mls/hr IV Q6H [facility] Last Infusion: 11/16/23 09:47 Dose: Infused Documented By: CHARLIE Erythromycin Lactobionate 290 (mg/ Sodium Chloride) 100 mls @ 100 mls/hr IV Q8H [facility] Last Infusion: 11/16/23 14:16 Dose: Infused Documented By: CHARLIE Insulin Glargine (Insulin Glargine,Hum.Rec.Anlog 100 Unit/Ml 10 Ml Vial) 15 unit SUBCUT BEDTIME [facility] Last Admin: 11/15/23 22:16 Dose: 15 unit Documented By: BRYANNA Insulin Human Lispro (Insulin Lispro 100 Unit/Ml 3 Ml Vial) 0 unit SUBCUT QIDACHS [facility]; Protocol Last Admin: 11/16/23 11:24 Dose: Not Given Documented By: CHARLIE Non-Admin Reason: No Insulin Coverage Ketorolac Tromethamine (Ketorolac Tromethamine 15 Mg/Ml Vial) 15 mg IVPUSH Q8H PRN PRN Reason: Pain, Moderate(Pain Scale 4-6) Last Admin: 11/16/23 12:33 Dose: 15 mg Documented By: CHARLIE Lidocaine (Lidocaine 4 % Patch Adh..Patch) 1 patch TRANSDERMA DAILY [facility]; Protocol Last Admin: 11/16/23 08:52 Dose: 1 patch Documented By: CHARLIE Nicotine (Nicotine 14 Mg Patch.Td24) 14 mg TRANSDERMA DAILY [facility] Last Admin: 11/16/23 08:51 Dose: 14 mg Documented By: CHARLIE Nystatin (Nystatin Oral Susp 500,000 Unit/5 Ml Oral.Susp) 500,000 unit PO QID [facility]; Protocol Last Admin: 11/16/23 12:33 Dose: 500,000 unit Documented By: CHARLIE Ondansetron HCl (Ondansetron Hcl 4 Mg/2 Ml Vial) 4 mg IVPUSH Q8H PRN PRN Reason: Nausea and Vomiting Last Admin: 11/12/23 20:05 Dose: 4 mg Documented By: BRAD Paroxetine HCl (Paroxetine Hcl 20 Mg Tablet) 20 mg PO DAILY@0900 [facility] Last Admin: 11/16/23 08:50 Dose: 20 mg Documented By: CHARLIE Polyethylene Glycol (Polyethylene Glycol 3350 17 Gm Powd.Pack) 17 gm PO DAILY [facility] Last Admin: 11/16/23 08:50 Dose: Not Given Documented By: CHARLIE Non-Admin Reason: large BM Senna/Docusate Sodium (Sennosides/Docusate Sodium Tablet) 2 tab PO BID [facility] Last Admin: 11/16/23 08:50 Dose: Not Given Documented By: CHARLIE Non-Admin Reason: large BM Sodium Chloride (0.9 % Sodium Chloride Flush 3 Ml Syringe) 3 ml IVFLUSH QSHIFT [facility] Last Admin: 11/16/23 08:52 Dose: 3 ml Documented By: CHARLIE Labs 11/16/23 08:13 11/16/23 08:13 Labs: Laboratory Results - last 24 hr 11/15/23 11/15/2311/14/24 16:29 18:07 22:10 MCV MCH MCHC RDW Plt Count MPV Absolute Nucleated RBC Nucleated RBC % (auto) Anion Gap Estim Creat Clear Calc Estimated GFR POC Glucose 348 H 259 H 212 H Random Glucose Calcium Magnesium Total Bilirubin Direct Bilirubin AST ALT Alkaline Phosphatase Total Protein Albumin 11/16/23 11/16/23 11/16/23 07:49 08:13 11:02 MCV 100.7 H MCH 32.1 MCHC 31.9 RDW 13.3 Plt Count 64 L MPV 11.9 Absolute Nucleated RBC 0.000 Nucleated RBC % (auto) 0.0 Anion Gap 13 Estim Creat Clear Calc 91.2 Estimated GFR > 60 POC Glucose 97 129 H Random Glucose 99 Calcium 8.3 L Magnesium 2.2 Total Bilirubin 0.9 Direct Bilirubin 0.3 AST 19 ALT 20 Alkaline Phosphatase 74 Total Protein 5.5 L Albumin 3.2 L Microbiology Microbiology Results: Microbiology 11/13/23 15:35 Blood Culture - Preliminary Blood - Venous No growth after 48 hours. 11/13/23 15:35 Blood Culture - Preliminary Blood - Venous No growth after 48 hours. Assessment and Plan (1) Aspiration pneumonia: Status: Acute Plan d18 78yo F with pAF on apixaban, COPD not on hO2, gout, HF with unknown EF, and DM2 presented with AMS, admitted for hypoxia due to CAP + COPD developed worsening hypoxia due to aspiration and intubated on 11/13/23 extuated 11/14/23 and stepped down to telemetry 11/15/23 aspiration pneumonia sepsis due to Enterococcus faecalis bacteremia [positive BCx 10/29, repeat BCx 11/01 and 11/12 negative] - azithro 10/30-11/04, vanco 10/30-10/31, ceftriaxone 10/31-11/01, pip-don 11/01- and again 11/12-, dapto 11/06-11/12 - placed on erythromycin for gastric motility; d/c - VISION TE[employer]ER following; currently pureed solids + nectar liquids acute hypoxic respiratory failure - wean O2 as tolerated COPD exacerbation - resolved s/p IV steroids; continue Breo + nebs pancreatic abnormality - as part of workup of bacteremia, CT abdomen and pelvis was done that showed abrupt change in size of pancreas with atrophy plus ductal dilatation be on pancreatic neck; also extra and intrahepatic biliary dilatation to level of ampulla noted - follow-up MRI obtained to rule out pancreatic mass: no masses but showed changing caliber of pancreatic duct with distal atrophy of pancreatic parenchyma, tortuosity and dilatation of the duct, underlying stricture was not excluded; distended gallbladder with sludge and small stones, common bile duct 1.4 cm without intraductal filling defects, moderate intrahepatic biliary ductal dilatation tjat may represent biliary dyskinesia. - no abdominal pain, normal LFTs; per GI no aggressive invasive procedures as pt asymptomatic - TTE with no vegetation - discuss ABX duration/course with ID AF/RVR - was difficult to control and got diltiazem IV drip, digoxin IV, and amiodarone PO load. Currently on diltiazem 90 mg qid -> change to 360 mg CD daily. Continue amiodarone. - continue Eliquis - TTE 11/04: LVEF 60-65%, normal right ventricular cavity size and systolic function, no obvious vegetation noted thrombocytopenia - likely due to infection; monitor daily acute metabolic encephalopathy due to hypoglycemia - resolved chronic HFpEF - furosemide discontinued due to contraction alkalosis, appears euvolemic gout - continue allopurinol mood disorder - continue paroxetine DM2 - basal-bolus insulin moderate protein/oscar malnutrition - supplements code - per ICU attending, DNR/DNI dispo - STR per PT In my clinical judgment, the patient requires continued inpatient hospitalization for the following reasons: hypoxia, IV ABX Total time managing care of this patient today: 50 minutes. Quality Stroke Does the patient have a stroke diagnosis?: No VTE Prior VTE?: No VTE Risk Level:: Medical - moderate - high VTE Device Contraindication: Treatment Not Indicated VTE Drug Contraindication: N/A - Med Ordered
[2023-11-16] MEDS: dilTIAZem HCL CD 180 MG CAP.ER.24H 360 MG PO (15:17)
[2023-11-16] MEDS: Insulin Glargine,Hum.rec.anlog 100 UNIT/ML 10 ML VIAL 15 UNIT SUBCUT (20:53)
[2023-11-16 21:06] LABS: Glucose, Whole Blood 211 mg/dL (60-115)
[2023-11-16] MEDS: Insulin Lispro 100 UNIT/ML 3 ML VIAL SUBCUT (22:16)
[2023-11-17] VITALS (8 sets, daily range): BP systolic 139–175; BP diastolic 63–76; PULSE 52–150; RESP 18–28; TEMP 36.2–36.4; O2SAT 93–98; BMI 37.1
--- NOTE | 2023-11-17 | ECG_ITS ---
Test Reason : chest pain Blood Pressure : / mmHG Vent. Rate : 123 BPM Atrial Rate : 000 BPM P-R Int : 000 ms QRS Dur : 068 ms QT Int : 314 ms P-R-T Axes : 000 007 079 degrees QTc Int : 449 ms Atrial fibrillation with rapid ventricular response Nonspecific ST abnormality Abnormal ECG When compared with ECG of 06-NOV-2023 02:31, Atrial fibrillation has replaced Sinus rhythm Referred By: Travis Avendaño Electronically Signed By:KATHERIN PERERA MD
[2023-11-17] MEDS: Piperacillin Sodium/Tazobactam 4.5 GM in 0.9 % Sodium Chloride 100 ML IV ×4 (03:33→21:35)
[2023-11-17] MEDS: Ketorolac Tromethamine 15 MG/ML VIAL IVPUSH ×3 (04:27→21:33)
[2023-11-17] MEDS: Acetaminophen 325 MG TABLET 975 MG PO (05:55)
[2023-11-17] MEDS: Albuterol/Iprat 2.5/0.5MG 3 ML AMPUL.NEB INHALE (07:20)
[2023-11-17] MEDS: Acetylcysteine 10 % 400 MG/4 ML VIAL INHALE ×2 (07:21→21:20)
[2023-11-17] MEDS: Fluticasone/Vilanterol 100/25 BLST.W.DEV 1 PUFF INHALE (07:21)
[2023-11-17 07:29] LABS: Glucose, Whole Blood 101 mg/dL (60-115)
[2023-11-17] MEDS: Amiodarone HCL 200 MG TABLET PO (08:52)
[2023-11-17] MEDS: Apixaban 5 MG TABLET PO (08:53)
[2023-11-17] MEDS: Nicotine 14 MG PATCH.TD24 TRANSDERMA (08:53)
[2023-11-17] MEDS: guaiFENesin LA 600 MG TAB.ER.12H 1200 MG PO ×2 (08:53→21:38)
[2023-11-17] MEDS: dilTIAZem HCL CD 180 MG CAP.ER.24H 360 MG PO (08:53)
[2023-11-17] MEDS: Sennosides/Docusate Sodium TABLET 2 TAB PO (08:53)
[2023-11-17] MEDS: Nystatin Oral Susp 500,000 UNIT/5 ML ORAL.SUSP 500000 UNIT PO ×4 (08:53→21:38)
[2023-11-17] MEDS: PARoxetine HCL 20 MG TABLET PO (08:53)
[2023-11-17] MEDS: allopurinoL 300 MG TABLET 150 MG PO (08:54)
[2023-11-17] MEDS: Lidocaine 4 % Patch ADH..PATCH 1 PATCH TRANSDERMA (08:54)
[2023-11-17] MEDS: 0.9 % Sodium Chloride Flush 3 ML SYRINGE IVFLUSH ×2 (08:55→21:43)
[2023-11-17 09:19] LABS: Hematocrit 26.9 % (37.0-47.0); Hemoglobin 8.3 g/dl (12.0-16.0); Mean Corpuscular HGB Conc 30.9 g/dl (31.0-35.0); Mean Corpuscular Hemoglobin 31.9 pg (27.0-33.0); Mean Corpuscular Volume 103.5 fL (80.0-98.0); Mean Platelet Volume 11.1 fL (9.4-12.3); Red Cell Distribution Width 13.6 % (11.0-16.0); White Blood Count 8.3 X10*3/uL (4.8-10.8)
[2023-11-17 09:20] LABS: Platelet Count 75 X10*3/uL (160-400)
[2023-11-17 09:32] LABS: Anion Gap 14 (12-20); Blood Urea Nitrogen 12 mg/dL (9-16); Calcium 8.6 mg/dL (8.4-10.2); Carbon Dioxide 23 mmol/L (22-29); Chloride 112 mmol/L (96-108); Creatinine Clr Calc Pharmacy 87.9; Estimated Glomerular Filt Rate > 60; Glucose Random 115 mg/dL (60-115); Magnesium 2.1 mg/dL (1.6-2.6); Potassium 3.2 mmol/L (3.3-5.1); Sodium 146 mmol/L (135-145)
--- NOTE | 2023-11-17 10:41 | P.PNIM_ITS ---
Subjective Subjective Date of Service: 11/17/23 Interval History: foul bloody BM this AM no abd pain no dyspnea or cough no chest pain Review of Systems Review of Systems: Yes all other systems are reviewed and are negative Physical Exam 2 Vital Signs: Vital Signs: Last Vital Signs Temp 97.3 F 11/17/23 08:00 Pulse 72 11/17/23 08:00 Resp 28 H 11/17/23 08:00 BP 146/68 H 11/17/23 08:00 Pulse Ox 97 11/17/23 08:00 O2 Del Method Nasal Cannula 11/17/23 08:00 O2 Flow Rate 2 11/17/23 08:00 FiO2 30 11/14/23 12:00 Oxygen Flow Rate 2 11/10/23 07:30 BMI result Body Mass Index 37.1 Gen: weak, chronically ill HEENT: sclera anicteric, moist mucus membranes Neck: supple Lungs: clear to auscultation bilaterally Heart: irregular, no murmurs Abd: soft, non-tender, non-distended Ext: no edema Skin: warm/well-perfused Neuro: alert and oriented x3, no focal findings Psych: appropriate affect Objective Data Active Medications Acetaminophen (Acetaminophen 325 Mg Tablet) 975 mg PO Q6H PRN PRN Reason: mild pain, headache or fever Last Admin: 11/17/23 05:55 Dose: 975 mg Documented By: HUGO Acetylcysteine (Acetylcysteine 10 % 400 Mg/4 Ml Vial) 400 mg INHALE RBID [facility] Last Admin: 11/17/23 07:21 Dose: 400 mg Documented By: SORAYA Albuterol Sulfate (Albuterol Sulfate (0.083%) 2.5 Mg/3 Ml Vial.Neb) 2.5 mg INHALE Q2H PRN PRN Reason: Shortness of Breath/Wheezing Albuterol/Ipratropium (Albuterol/Iprat 2.5/0.5mg 3 Ml Ampul.Neb) 3 ml INHALE RQ4H WHILE AWAKE [facility] Last Admin: 11/17/23 07:20 Dose: 3 ml Documented By: SORAYA Allopurinol (Allopurinol 300 Mg Tablet) 150 mg PO DAILY [facility] Last Admin: 11/17/23 08:54 Dose: 150 mg Documented By: LEEANN Amiodarone HCl (Amiodarone Hcl 200 Mg Tablet) 200 mg PO DAILY [facility] Last Admin: 11/17/23 08:52 Dose: 200 mg Documented By: LEEANN Apixaban (Apixaban 5 Mg Tablet) 5 mg PO BID [facility] Last Admin: 11/17/23 08:53 Dose: 5 mg Documented By: LEEANN Diltiazem HCl (Diltiazem Hcl Cd 180 Mg Cap.Er.24h) 360 mg PO DAILY [facility]; Protocol Last Admin: 11/17/23 08:53 Dose: 360 mg Documented By: LEEANN Docusate Sodium (Docusate Sodium 100 Mg Capsule) 100 mg PO BID PRN PRN Reason: constipation Fluticasone/Vilanterol (Fluticasone/Vilanterol 100/25 Blst.W.Dev) 1 puff INHALE RDAILY [facility] Last Admin: 11/17/23 07:21 Dose: 1 puff Documented By: SORAYA Glucose (Glucose Gel 15 Gm Gel..Gram.) 15 gm PO Q15M PRN; Protocol PRN Reason: per Hypoglycemia Standing Ord. Guaifenesin (Guaifenesin La 600 Mg Tab.Er.12h) 1,200 mg PO BID [facility] Last Admin: 11/17/23 08:53 Dose: 1,200 mg Documented By: LEEANN Piperacillin Sod/Tazobactam (Sod 4.5 gm/ Sodium Chloride) 100 mls @ 200 mls/hr IV Q6H [facility] Last Infusion: 11/17/23 09:46 Dose: Infused Documented By: CARMEN Insulin Glargine (Insulin Glargine,Hum.Rec.Anlog 100 Unit/Ml 10 Ml Vial) 15 unit SUBCUT BEDTIME [facility] Last Admin: 11/16/23 20:53 Dose: 15 unit Documented By: HUGO Insulin Human Lispro (Insulin Lispro 100 Unit/Ml 3 Ml Vial) 0 unit SUBCUT QIDACHS [facility]; Protocol Last Admin: 11/17/23 07:27 Dose: Not Given Documented By: LEEANN Non-Admin Reason: No Insulin Coverage Ketorolac Tromethamine (Ketorolac Tromethamine 15 Mg/Ml Vial) 15 mg IVPUSH Q8H PRN PRN Reason: Pain, Moderate(Pain Scale 4-6) Last Admin: 11/17/23 04:27 Dose: 15 mg Documented By: HUGO Lidocaine (Lidocaine 4 % Patch Adh..Patch) 1 patch TRANSDERMA DAILY [facility]; Protocol Last Admin: 11/17/23 08:54 Dose: 1 patch Documented By: LEEANN Nicotine (Nicotine 14 Mg Patch.Td24) 14 mg TRANSDERMA DAILY [facility] Last Admin: 11/17/23 08:53 Dose: 14 mg Documented By: LEEANN Nystatin (Nystatin Oral Susp 500,000 Unit/5 Ml Oral.Susp) 500,000 unit PO QID [facility]; Protocol Last Admin: 11/17/23 08:53 Dose: 500,000 unit Documented By: LEEANN Ondansetron HCl (Ondansetron Hcl 4 Mg/2 Ml Vial) 4 mg IVPUSH Q8H PRN PRN Reason: Nausea and Vomiting Last Admin: 11/12/23 20:05 Dose: 4 mg Documented By: BRAD Paroxetine HCl (Paroxetine Hcl 20 Mg Tablet) 20 mg PO DAILY@0900 [facility] Last Admin: 11/17/23 08:53 Dose: 20 mg Documented By: LEEANN Polyethylene Glycol (Polyethylene Glycol 3350 17 Gm Powd.Pack) 17 gm PO DAILY [facility] Last Admin: 11/17/23 10:04 Dose: Not Given Documented By: CARMEN Non-Admin Reason: Patient Refused Senna/Docusate Sodium (Sennosides/Docusate Sodium Tablet) 2 tab PO BID [facility] Last Admin: 11/17/23 08:53 Dose: 2 tab Documented By: LEEANN Sodium Chloride (0.9 % Sodium Chloride Flush 3 Ml Syringe) 3 ml IVFLUSH QSHIFT [facility] Last Admin: 11/17/23 08:55 Dose: 3 ml Documented By: LEEANN Labs 11/17/23 09:08 11/17/23 09:08 Labs: Laboratory Results - last 24 hr 11/16/23 11/16/23 11/17/23 11:02 20:22 07:24 MCV MCH MCHC RDW Plt Count MPV Absolute Nucleated RBC Nucleated RBC % (auto) Anion Gap Estim Creat Clear Calc Estimated GFR POC Glucose 129 H 211 H 101 Random Glucose Calcium Magnesium 11/17/23 09:08 MCV 103.5 H MCH 31.9 MCHC 30.9 L RDW 13.6 Plt Count 75 L MPV 11.1 Absolute Nucleated RBC 0.000 Nucleated RBC % (auto) 0.0 Anion Gap 14 Estim Creat Clear Calc 87.9 Estimated GFR > 60 POC Glucose Random Glucose 115 Calcium 8.6 Magnesium 2.1 Assessment and Plan (1) Aspiration pneumonia: Status: Acute Plan d19 78yo F with pAF on apixaban, COPD not on hO2, gout, HF with unknown EF, and DM2 presented with AMS, admitted for hypoxia due to CAP + COPD developed worsening hypoxia due to aspiration and intubated on 11/13/23 extubated 11/14/23 and stepped down to telemetry 11/15/23 BRBPR - hold Eliquis, check Cdiff + GI panel from stool, continue to monitor aspiration pneumonia sepsis due to Enterococcus faecalis bacteremia [positive BCx 10/29, repeat BCx 11/01 and 11/12 negative] - azithro 10/30-11/04, vanco 10/30-10/31, ceftriaxone 10/31-11/01, pip-don 11/01- and again 11/12-, dapto 11/06-11/12 - discussed with ID. Total 21d antibiotics from 11/01, so today is d15. Can switch pip-don to amox-clav upon discharge. - placed on erythromycin for gastric motility; d/c'ed - W[employer]OWS [employer] ARCHITECT following; currently pureed solids + nectar liquids acute hypoxic respiratory failure - wean O2 as tolerated; currently on 2L O2 COPD exacerbation - resolved s/p IV steroids; continue Breo + make nebs prn pancreatic abnormality - as part of workup of bacteremia, CT abdomen and pelvis was done that showed abrupt change in size of pancreas with atrophy plus ductal dilatation be on pancreatic neck; also extra and intrahepatic biliary dilatation to level of ampulla noted - follow-up MRI obtained to rule out pancreatic mass: no masses but showed changing caliber of pancreatic duct with distal atrophy of pancreatic parenchyma, tortuosity and dilatation of the duct, underlying stricture was not excluded; distended gallbladder with sludge and small stones, common bile duct 1.4 cm without intraductal filling defects, moderate intrahepatic biliary ductal dilatation tjat may represent biliary dyskinesia. - no abdominal pain, normal LFTs; per GI no aggressive invasive procedures as pt asymptomatic - TTE with no vegetation AF/RVR - was difficult to control and got diltiazem IV drip, digoxin IV, and amiodarone PO load. Currently on diltiazem 90 mg qid -> change to 360 mg CD daily. Continue amiodarone. - Eliquis on hold - TTE 11/04: LVEF 60-65%, normal right ventricular cavity size and systolic function, no obvious vegetation noted thrombocytopenia - likely due to infection; monitor daily- slightly improved today hypoK, 3.2 - replete PO acute metabolic encephalopathy due to hypoglycemia - resolved chronic HFpEF - furosemide discontinued due to contraction alkalosis, appears euvolemic gout - continue allopurinol mood disorder - continue paroxetine DM2 - basal-bolus insulin moderate protein/oscar malnutrition - supplements code - per ICU attending, DNR/DNI dispo - STR per PT In my clinical judgment, the patient requires continued inpatient hospitalization for the following reasons: hypoxia, IV ABX Total time managing care of this patient today: 45 minutes. Quality Stroke Does the patient have a stroke diagnosis?: No VTE Prior VTE?: No VTE Risk Level:: Medical - moderate - high VTE Device Contraindication: Treatment Not Indicated VTE Drug Contraindication: N/A - Med Ordered
[2023-11-17 11:26] LABS: Glucose, Whole Blood 156 mg/dL (60-115)
[2023-11-17] MEDS: Potassium Chloride ER 20 MEQ TAB.ER.PRT 40 MEQ PO ×2 (11:53→22:31)
[2023-11-17] MEDS: Insulin Lispro 100 UNIT/ML 3 ML VIAL SUBCUT ×2 (11:53→22:28)
[2023-11-17 15:23] LABS: CDiff Gene PCR NEGATIVE (Negative)
[2023-11-17] MEDS: oxyCODONE HCl Immed Release 5 MG TABLET PO (16:13)
[2023-11-17 16:20] LABS: Glucose, Whole Blood 120 mg/dL (60-115)
--- NOTE | 2023-11-17 18:10 | PM.EVENT ---
Event Note Date of Service: 11/17/23 Event Note: patient complaining of sob, chest pain saturation ok, tachycardic, tachypenic, in acute distress, large bloody BM will get cbc, bmp, troponin, ekg, cxr eliquis on hold, starting iv protonix 40mg bid Time Spent With Patient Time: Total time managing care of this patient today ____ minutes.
[2023-11-17] MEDS: Morphine Sulfate 2 MG/ML CARTRIDGE 1 MG IVPUSH (18:33)
[2023-11-17] MEDS: Pantoprazole Sodium 40 MG/10 ML VIAL IVPUSH (18:33)
[2023-11-17 20:34] LABS: Mean Corpuscular HGB Conc 32.4 g/dl (31.0-35.0); Mean Corpuscular Hemoglobin 31.8 pg (27.0-33.0); Mean Corpuscular Volume 97.9 fL (80.0-98.0); Mean Platelet Volume 11.4 fL (9.4-12.3); Red Blood Count 1.92 X10*6/uL (4.20-5.50); Red Cell Distribution Width 13.7 % (11.0-16.0); White Blood Count 12.6 X10*3/uL (4.8-10.8)
[2023-11-17 20:51] LABS: Platelet Count 70 X10*3/uL (160-400)
[2023-11-17 21:07] LABS: Hematocrit 18.8 % (37.0-47.0); Hemoglobin 6.1 g/dl (12.0-16.0)
[2023-11-17 21:22] LABS: Glucose, Whole Blood 199 mg/dL (60-115)
[2023-11-17] MEDS: Insulin Glargine,Hum.rec.anlog 100 UNIT/ML 10 ML VIAL 15 UNIT SUBCUT (21:37)
--- NOTE | 2023-11-17 21:58 | PM.EVENT ---
Event Note Date of Service: 11/17/23 Event Note: Patient with blood loss anemia, hemoglobin noted to be less than 7. Will order PRBC transfusion. Also repleting potassium Time Spent With Patient Time: Total time managing care of this patient today ____ minutes.
[2023-11-17 23:27] LABS: Anion Gap 18 (12-20); Blood Urea Nitrogen 19 mg/dL (9-16); Calcium 8.3 mg/dL (8.4-10.2); Carbon Dioxide 17 mmol/L (22-29); Chloride 114 mmol/L (96-108); Creatinine Clr Calc Pharmacy 67.3; Estimated Glomerular Filt Rate > 60; Glucose Random 220 mg/dL (60-115); Potassium 4.1 mmol/L (3.3-5.1); Sodium 145 mmol/L (135-145)
[2023-11-17 23:32] LABS: Troponin-I High Sensitivity 28.7 ng/L (<3.5-17.0)
[2023-11-18] VITALS (22 sets, daily range): BP systolic 119–161; BP diastolic 54–79; PULSE 82–107; RESP 17–30; TEMP 36–36.7; O2SAT 92–99; BMI 36.3
[2023-11-18] MEDS: Piperacillin Sodium/Tazobactam 4.5 GM in 0.9 % Sodium Chloride 100 ML IV ×4 (04:10→21:46)
[2023-11-18] MEDS: Ketorolac Tromethamine 15 MG/ML VIAL IVPUSH ×2 (05:15→13:59)
[2023-11-18] MEDS: Pantoprazole Sodium 40 MG/10 ML VIAL IVPUSH ×2 (05:31→17:03)
[2023-11-18] MEDS: Albuterol Sulfate (0.083%) 2.5 MG/3 ML VIAL.NEB INHALE (07:28)
[2023-11-18] MEDS: Acetylcysteine 10 % 400 MG/4 ML VIAL INHALE ×2 (07:28→19:51)
[2023-11-18] MEDS: Fluticasone/Vilanterol 100/25 BLST.W.DEV 1 PUFF INHALE (07:33)
[2023-11-18 07:55] LABS: Glucose, Whole Blood 225 mg/dL (60-115)
[2023-11-18] MEDS: Furosemide 40 MG/4 ML VIAL IVPUSH ×2 (08:00→17:03)
[2023-11-18] MEDS: PARoxetine HCL 20 MG TABLET PO (08:41)
[2023-11-18] MEDS: allopurinoL 300 MG TABLET 150 MG PO (08:41)
[2023-11-18] MEDS: guaiFENesin LA 600 MG TAB.ER.12H 1200 MG PO ×2 (08:41→21:45)
[2023-11-18] MEDS: dilTIAZem HCL CD 180 MG CAP.ER.24H 360 MG PO (08:41)
[2023-11-18] MEDS: Amiodarone HCL 200 MG TABLET PO (08:42)
[2023-11-18] MEDS: Lidocaine 4 % Patch ADH..PATCH 1 PATCH TRANSDERMA (08:42)
[2023-11-18] MEDS: Nicotine 14 MG PATCH.TD24 TRANSDERMA (08:42)
[2023-11-18] MEDS: Nystatin Oral Susp 500,000 UNIT/5 ML ORAL.SUSP 500000 UNIT PO ×4 (08:42→21:46)
[2023-11-18] MEDS: Insulin Lispro 100 UNIT/ML 3 ML VIAL SUBCUT ×3 (08:43→17:02)
--- NOTE | 2023-11-18 09:01 | PC.NURSE ---
rectal tube removed at 0900, patient tolerated well
[2023-11-18 09:21] LABS: Adenovirus F 40/41 Not Detected (Not Detect.); Astrovirus Not Detected (Not Detect.); Campylobacter Not Detected (Not Detect.); Cryptosporidium Not Detected (Not Detect.); Cyclospora cayetanensis Not Detected (Not Detect.); E. coli EAEC Not Detected (Not Detect.); E. coli EPEC Not Detected (Not Detect.); E. coli ETEC Not Detected (Not Detect.); E. coli STEC Not Detected (Not Detect.); Entamoeba histolytica Not Detected (Not Detect.); Giardia lamblia Not Detected (Not Detect.); Norovirus GI/GII Not Detected (Not Detect.); Plesiomonas shigelloides Not Detected (Not Detect.); Rotavirus A Not Detected (Not Detect.); Salmonella Not Detected (Not Detect.); Sapovirus Not Detected (Not Detect.); Shigella sp./EIEC Not Detected (Not Detect.); Vibrio Not Detected (Not Detect.); Vibrio Cholerae Not Detected (Not Detect.); Yersinia enterocolitica Not Detected (Not Detect.)
--- NOTE | 2023-11-18 09:24 | HO.PM.IMPN ---
Subjective Subjective Date of Service: 11/18/23 Interval History: c/o dyspnea and chest pain yesterday after having large bloody BM Hb low at 6.1; transfused 2u pRBCs this AM c/o dyspnea, started on CPAP and now respiratory status improved currently no chest pain; c/o back pain no fever Review of Systems Review of Systems: Yes all other systems are reviewed and are negative Physical Exam Vital Signs: Vital Signs: Last Vital Signs Temp 97.0 F 11/18/23 08:36 Pulse 101 H 11/18/23 08:41 Resp 22 H 11/18/23 08:36 BP 161/67 H 11/18/23 08:41 Pulse Ox 96 11/18/23 07:58 O2 Del Method Oxymask 11/18/23 07:58 O2 Flow Rate 2 11/18/23 07:58 FiO2 30 11/14/23 12:00 Oxygen Flow Rate 2 11/10/23 07:30 BMI result Body Mass Index 36.3 Gen: in respiratory distress, ill-appearing HEENT: sclera anicteric, moist mucus membranes Neck: supple Lungs: bilateral coarse inspiratory crackles Heart: irregular, no murmurs Abd: soft, non-tender, non-distended Ext: no edema Skin: warm/well-perfused Neuro: alert and oriented x3, no focal findings Psych: appropriate affect Objective Data Active Medications Acetaminophen (Acetaminophen 325 Mg Tablet) 975 mg PO Q6H PRN PRN Reason: mild pain, headache or fever Last Admin: 11/17/23 05:55 Dose: 975 mg Documented By: HUGO Acetylcysteine (Acetylcysteine 10 % 400 Mg/4 Ml Vial) 400 mg INHALE RBID [facility] Last Admin: 11/18/23 07:28 Dose: 400 mg Documented By: SORAYA Albuterol Sulfate (Albuterol Sulfate (0.083%) 2.5 Mg/3 Ml Vial.Neb) 2.5 mg INHALE Q2H PRN PRN Reason: Shortness of Breath/Wheezing Last Admin: 11/18/23 07:28 Dose: 2.5 mg Documented By: SORAYA Allopurinol (Allopurinol 300 Mg Tablet) 150 mg PO DAILY [facility] Last Admin: 11/18/23 08:41 Dose: 150 mg Documented By: LEEANN Amiodarone HCl (Amiodarone Hcl 200 Mg Tablet) 200 mg PO DAILY [facility] Last Admin: 11/18/23 08:42 Dose: 200 mg Documented By: LEEANN Apixaban (Apixaban 5 Mg Tablet) 5 mg PO BID [facility] Last Admin: 11/17/23 08:53 Dose: 5 mg Documented By: LEEANN Diltiazem HCl (Diltiazem Hcl Cd 180 Mg Cap.Er.24h) 360 mg PO DAILY [facility]; Protocol Last Admin: 11/18/23 08:41 Dose: 360 mg Documented By: LEEANN Docusate Sodium (Docusate Sodium 100 Mg Capsule) 100 mg PO BID PRN PRN Reason: constipation Fluticasone/Vilanterol (Fluticasone/Vilanterol 100/25 Blst.W.Dev) 1 puff INHALE RDAILY [facility] Last Admin: 11/18/23 07:33 Dose: 1 puff Documented By: SORAYA Glucose (Glucose Gel 15 Gm Gel..Gram.) 15 gm PO Q15M PRN; Protocol PRN Reason: per Hypoglycemia Standing Ord. Guaifenesin (Guaifenesin La 600 Mg Tab.Er.12h) 1,200 mg PO BID [facility] Last Admin: 11/18/23 08:41 Dose: 1,200 mg Documented By: LEEANN Piperacillin Sod/Tazobactam (Sod 4.5 gm/ Sodium Chloride) 100 mls @ 200 mls/hr IV Q6H [facility] Last Admin: 11/18/23 08:41 Dose: 200 mls/hr Documented By: LEEANN Insulin Glargine (Insulin Glargine,Hum.Rec.Anlog 100 Unit/Ml 10 Ml Vial) 15 unit SUBCUT BEDTIME [facility] Last Admin: 11/17/23 21:37 Dose: 15 unit Documented By: HUGO Insulin Human Lispro (Insulin Lispro 100 Unit/Ml 3 Ml Vial) 0 unit SUBCUT QIDACHS [facility]; Protocol Last Admin: 11/18/23 08:43 Dose: 6 unit Documented By: LEEANN Ketorolac Tromethamine (Ketorolac Tromethamine 15 Mg/Ml Vial) 15 mg IVPUSH Q8H PRN PRN Reason: Pain, Moderate(Pain Scale 4-6) Last Admin: 11/18/23 05:15 Dose: 15 mg Documented By: HUGO Lidocaine (Lidocaine 4 % Patch Adh..Patch) 1 patch TRANSDERMA DAILY [facility]; Protocol Last Admin: 11/18/23 08:42 Dose: 1 patch Documented By: LEEANN Nicotine (Nicotine 14 Mg Patch.Td24) 14 mg TRANSDERMA DAILY [facility] Last Admin: 11/18/23 08:42 Dose: 14 mg Documented By: LEEANN Nystatin (Nystatin Oral Susp 500,000 Unit/5 Ml Oral.Susp) 500,000 unit PO QID [facility]; Protocol Last Admin: 11/18/23 08:42 Dose: 500,000 unit Documented By: LEEANN Ondansetron HCl (Ondansetron Hcl 4 Mg/2 Ml Vial) 4 mg IVPUSH Q8H PRN PRN Reason: Nausea and Vomiting Last Admin: 11/12/23 20:05 Dose: 4 mg Documented By: BRAD Pantoprazole Sodium (Pantoprazole Sodium 40 Mg/10 Ml Vial) 40 mg IVPUSH BID@0630,1630 [facility] Last Admin: 11/18/23 05:31 Dose: 40 mg Documented By: HUGO Paroxetine HCl (Paroxetine Hcl 20 Mg Tablet) 20 mg PO DAILY@0900 [facility] Last Admin: 11/18/23 08:41 Dose: 20 mg Documented By: LEEANN Sodium Chloride (0.9 % Sodium Chloride Flush 3 Ml Syringe) 3 ml IVFLUSH QSHIFT [facility] Last Admin: 11/18/23 08:44 Dose: Not Given Documented By: LEEANN Non-Admin Reason: IV Running Labs 11/17/23 20:14 11/17/23 20:14 Labs: Laboratory Results - last 24 hr 11/17/23 11/17/23 11/17/23 09:08 11:18 14:16 MCV MCH MCHC RDW Plt Count MPV Absolute Nucleated RBC Nucleated RBC % (auto) Anion Gap 14 Estim Creat Clear Calc 87.9 Estimated GFR > 60 POC Glucose 156 H Random Glucose 115 Calcium 8.6 Magnesium 2.1 Troponin I High Sens C. difficile Tox B Gene NEGATIVE Blood Type Antibody Screen Antibody Identification Crossmatch Crossmatch ([facility]) Blood Bank Comment 11/17/23 11/17/23 11/17/23 16:15 20:14 20:14 MCV 97.9 D MCH 31.8 MCHC 32.4 RDW 13.7 Plt Count 70 L MPV 11.4 Absolute Nucleated RBC 0.000 Nucleated RBC % (auto) 0.0 Anion Gap 18 Estim Creat Clear Calc 67.3 Estimated GFR > 60 POC Glucose 120 H Random Glucose 220 H Calcium 8.3 L Magnesium Troponin I High Sens 28.7 H C. difficile Tox B Gene Blood Type A Negative Antibody Screen POSITIVE Antibody Identification Anti-C Anti-D Crossmatch See Detail Crossmatch ([facility]) See Detail Blood Bank Comment Cancelled 11/17/23 11/18/23 20:54 07:52 MCV MCH MCHC RDW Plt Count MPV Absolute Nucleated RBC Nucleated RBC % (auto) Anion Gap Estim Creat Clear Calc Estimated GFR POC Glucose 199 H 225 H Random Glucose Calcium Magnesium Troponin I High Sens C. difficile Tox B Gene Blood Type Antibody Screen Antibody Identification Crossmatch Crossmatch ([facility]) Blood Bank Comment Impressions Chest X-Ray 11/17/23 18:57 IMPRESSION: Abdominal pulmonary infiltrates are again seen, now moderate in the left upper lobe, with interim increase. Chest X-Ray 11/18/23 08:10 IMPRESSION: 1. Bilateral low lung volumes. 2. Redemonstrated bilateral patchy radiopacities throughout the bilateral lung alberto greatest in the right mid and left upper lung alberto. 3. Trace right pleural effusion. Assessment and Plan (1) Aspiration pneumonia: Status: Acute Plan d20 78yo F with pAF on apixaban, COPD not on hO2, gout, HF with unknown EF, and DM2 presented with AMS, admitted for hypoxia due to CAP + COPD developed worsening hypoxia due to aspiration and intubated on 11/13/23 extubated 11/14/23 and stepped down to telemetry 11/15/23 acute hypoxic respiratory failure - suspect due to volume overload due to blood transfusion. will give 40 mg IV furosemide. continue CPAP, currently on 10 cm + 30% fiO2. check BNP BRBPR - hold Eliquis, give IV PPI, discuss with GI though not a candidate for scope at this point aspiration pneumonia sepsis due to Enterococcus faecalis bacteremia [positive BCx 10/29, repeat BCx 11/01 and 11/12 negative] - azithro 10/30-11/04, vanco 10/30-10/31, ceftriaxone 10/31-11/01, pip-don 11/01- and again 11/12-, dapto 11/06-11/12 - discussed with ID. Total 21d antibiotics from 11/01, so today is d15. Can switch pip-odn to amox-clav upon discharge. - placed on erythromycin for gastric motility; d/c'ed - CONFIGURATION RELEASE MANAGER following; currently pureed solids + nectar liquids COPD exacerbation - resolved s/p IV steroids; continue Breo + standing/prn nebs pancreatic abnormality - as part of workup of bacteremia, CT abdomen and pelvis was done that showed abrupt change in size of pancreas with atrophy plus ductal dilatation be on pancreatic neck; also extra and intrahepatic biliary dilatation to level of ampulla noted - follow-up MRI obtained to rule out pancreatic mass: no masses but showed changing caliber of pancreatic duct with distal atrophy of pancreatic parenchyma, tortuosity and dilatation of the duct, underlying stricture was not excluded; distended gallbladder with sludge and small stones, common bile duct 1.4 cm without intraductal filling defects, moderate intrahepatic biliary ductal dilatation tjat may represent biliary dyskinesia. - no abdominal pain, normal LFTs; per GI no aggressive invasive procedures as pt asymptomatic - TTE with no vegetation AF/RVR - was difficult to control and got diltiazem IV drip, digoxin IV, and amiodarone PO load. Stable on diltiazem 90 mg qid -> changed to 360 mg CD daily. Continue amiodarone. Currently in sinus rhythm with abundant PACs - Eliquis on hold - TTE 11/04: LVEF 60-65%, normal right ventricular cavity size and systolic function, no obvious vegetation noted thrombocytopenia - likely due to infection; monitor daily- improving hypoK, 3.2 - repleted PO, recheck pending acute metabolic encephalopathy due to hypoglycemia - resolved chronic HFpEF - furosemide discontinued due to contraction alkalosis, resume now IV gout - continue allopurinol mood disorder - continue paroxetine DM2 - basal-bolus insulin moderate protein/oscar malnutrition - supplements code - per ICU attending, DNR/DNI, confirmed with pt and her daughter via phone yesterday dispo - STR per PT In my clinical judgment, the patient requires continued inpatient hospitalization for the following reasons: resp failure Total time managing care of this patient today: 60 minutes. Quality Stroke Does the patient have a stroke diagnosis?: No VTE Prior VTE?: No VTE Risk Level:: Medical - moderate - high VTE Device Contraindication: Treatment Not Indicated VTE Drug Contraindication: N/A - Med Ordered
[2023-11-18] MEDS: Albuterol/Iprat 2.5/0.5MG 3 ML AMPUL.NEB INHALE ×3 (11:30→19:51)
[2023-11-18 11:36] LABS: Glucose, Whole Blood 183 mg/dL (60-115)
--- NOTE | 2023-11-18 13:23 | PM.GIPN ---
Subjective Subjective Date of Service: 11/18/23 Interval History: 78-year-old female with history of multiple comorbidities currently admitted for septic shock and acute hypoxic respiratory failure leading to mechanical ventilation, extubated on 11/13, for whom Gastroenterology was reconsulted for GIB yest leading to acute on chronic anemia. This is day 19 of hospitalization. Pt seen and evaluated at bedside. Able to answer questions. Bedside RN reports possibly 3 melanotic BMs yest. None today so far. Critical Care Time (minutes): 0 Physical Exam Vital Signs: Vital Signs: Last Vital Signs Temp 96.9 F 11/18/23 11:41 Pulse 82 11/18/23 11:41 Resp 17 11/18/23 11:41 BP 154/73 H 11/18/23 11:41 Pulse Ox 95 11/18/23 11:41 O2 Del Method BiPAP 11/18/23 11:41 O2 Flow Rate 2 11/18/23 07:58 FiO2 30 11/14/23 12:00 Oxygen Flow Rate 2 11/10/23 07:30 BMI result Body Mass Index 36.3 Elderly female, frail Nonicteric abd soft, nontender, nondistended diffuse echymosis on upper limbs Objective Data Labs 11/17/23 20:14 11/18/23 13:30 Labs: Laboratory Results - last 24 hr 11/17/23 11/17/23 11/17/23 14:16 16:15 20:14 WBC 12.6 H RBC 1.92 L D Hgb 6.1 L* D Hct 18.8 L* D MCV 97.9 D MCH 31.8 MCHC 32.4 RDW 13.7 Plt Count 70 L MPV 11.4 Absolute Nucleated RBC 0.000 Nucleated RBC % (auto) 0.0 Sodium 145 Potassium 4.1 D Chloride 114 H Carbon Dioxide 17 L Anion Gap 18 BUN 19 H Creatinine 0.77 Estim Creat Clear Calc 67.3 Estimated GFR > 60 POC Glucose 120 H Random Glucose 220 H Calcium 8.3 L Troponin I High Sens 28.7 H Stl C. cayetanensis PCR Not Detected Stool Rotavirus A PCR Not Detected Stl Adenov F 40/ PCR Not Detected Stool Astrovirus (PCR) Not Detected Stool Campylobacter PCR Not Detected Stool Cryptosporidium PCR Not Detected Stl Sh Tox Pr E STEC PCR Not Detected Stool E coli O157 PCR Not applicable Stl Enterotoxigenic E PCR Not Detected Stool EPEC (PCR) Not Detected Stool EAEC (PCR) Not Detected Stl E. histolytica PCR Not Detected Stool Giardia Lamblia PCR Not Detected Stl P. shigelloides PCR Not Detected Stool Salmonella PCR Not Detected Stool Sapovirus (PCR) Not Detected Stl Shigella/EIEC PCR Not Detected St Y.enterocolitica PCR Not Detected Stool Vibrio (PCR) Not Detected Stl Vibrio cholerae PCR Not Detected Stl Norovirus GI/GII PCR Not Detected C. difficile Tox B Gene NEGATIVE Blood Type A Negative Antibody Screen POSITIVE Antibody Identification Anti-C Crossmatch Crossmatch ([facility]) Blood Bank Comment 11/17/23 11/17/23 11/18/23 20:14 20:54 07:52 WBC RBC Hgb Hct MCV MCH MCHC RDW Plt Count MPV Absolute Nucleated RBC Nucleated RBC % (auto) Sodium Potassium Chloride Carbon Dioxide Anion Gap BUN Creatinine Estim Creat Clear Calc Estimated GFR POC Glucose 199 H 225 H Random Glucose Calcium Troponin I High Sens Stl C. cayetanensis PCR Stool Rotavirus A PCR Stl Adenov F 40/ PCR Stool Astrovirus (PCR) Stool Campylobacter PCR Stool Cryptosporidium PCR Stl Sh Tox Pr E STEC PCR Stool E coli O157 PCR Stl Enterotoxigenic E PCR Stool EPEC (PCR) Stool EAEC (PCR) Stl E. histolytica PCR Stool Giardia Lamblia PCR Stl P. shigelloides PCR Stool Salmonella PCR Stool Sapovirus (PCR) Stl Shigella/EIEC PCR St Y.enterocolitica PCR Stool Vibrio (PCR) Stl Vibrio cholerae PCR Stl Norovirus GI/GII PCR C. difficile Tox B Gene Blood Type Antibody Screen Antibody Identification Anti-D Crossmatch See Detail Crossmatch ([facility]) See Detail Blood Bank Comment Cancelled 11/18/23 11:32 WBC RBC Hgb Hct MCV MCH MCHC RDW Plt Count MPV Absolute Nucleated RBC Nucleated RBC % (auto) Sodium Potassium Chloride Carbon Dioxide Anion Gap BUN Creatinine Estim Creat Clear Calc Estimated GFR POC Glucose 183 H Random Glucose Calcium Troponin I High Sens Stl C. cayetanensis PCR Stool Rotavirus A PCR Stl Adenov F 40/41 PCR Stool Astrovirus (PCR) Stool Campylobacter PCR Stool Cryptosporidium PCR Stl Sh Tox Pr E STEC PCR Stool E coli O157 PCR Stl Enterotoxigenic E PCR Stool EPEC (PCR) Stool EAEC (PCR) Stl E. histolytica PCR Stool Giardia Lamblia PCR Stl P. shigelloides PCR Stool Salmonella PCR Stool Sapovirus (PCR) Stl Shigella/EIEC PCR St Y.enterocolitica PCR Stool Vibrio (PCR) Stl Vibrio cholerae PCR Stl Norovirus GI/GII PCR C. difficile Tox B Gene Blood Type Antibody Screen Antibody Identification Crossmatch Crossmatch ([facility]) Blood Bank Comment Microbiology Microbiology Results: Microbiology 11/13/23 15:35 Blood - Venous Blood Culture - Preliminary No growth after 48 hours. 11/13/23 15:35 Blood - Venous Blood Culture - Preliminary No growth after 48 hours. 11/13/23 13:13 Sputum - Suctioned Gram Stain - Final 11/13/23 13:13 Sputum - Suctioned Sputum Culture - Final Corynebacterium species Gram negative deangelo 11/02/23 13:18 Blood - Venous Blood Culture - Final No growth after 5 days. 11/02/23 13:18 Blood - Venous Blood Culture - Final No growth after 5 days. 10/30/23 19:59 Blood - Venous Blood Culture - Final No growth after 5 days. 10/30/23 19:11 Blood - Venous Blood Culture - Final Enterococcus faecalis Procedures Date of Service Date of Service: 11/18/23 Progress Note: A&P Assessment and plan (1) COPD (chronic obstructive pulmonary disease): Status: Acute (2) Hypoventilation syndrome: Status: Acute (3) Paroxysmal A-fib: Status: Acute (4) CHF (congestive heart failure), NYHA class II: Status: Acute (5) Bacteremia due to Enterococcus: Status: Acute (6) GI bleed: Status: Acute (7) Acute on chronic anemia: Status: Acute (8) Thrombocytopenia: Status: Acute Plan Pt with recent ICU admission for altered mental and acute hypoxic resp failure transferred out 11/14 weaned off NIPPV but cont to require supplemental O2. Noted to have at least 2-3 bloody BMs yest with resultant decline in Hb from 9.6 to 6.1. s/p 2 PRBC unit transfusion overnight. Eliquis on hold. Likely upper GIB. Ddx include stress ulcers/gastritis, PUD, AVMs, mucosal bleeding 2/2 thrombocytopenia compounded by anticoagulation ?DIC. Plan: - high risk for cardioresp decline from procedural sedation. - Clears for now - Agree with IV PPI. Add octreotide x 48h - Consider DDAVP. Platelet transfusion if count drops <50k - DIC work up - Tranfuse for Hb <7 - Avoid rectal temps and flexiseals. Time Spent With Patient Time: Total time managing care of this patient today ____ minutes. Quality Stroke Does the patient have a stroke diagnosis?: No VTE Prior VTE?: No VTE Risk Level:: Medical - moderate - high VTE Device Contraindication: Treatment Not Indicated VTE Drug Contraindication: N/A - Med Ordered
[2023-11-18] MEDS: Octreotide Acetate 500 MCG in 0.9 % Sodium Chloride 500 ML 50.1 MCG IVCONT (13:55)
[2023-11-18 14:01] LABS: Alanine Aminotransferase 14 U/L (0-31); Albumin Level 2.8 g/dL (3.5-5.0); Alkaline Phosphatase 90 U/L (39-117); Aspartate Amino Transferase 13 U/L (5-31); Bilirubin Total 1.1 mg/dL (0.0-1.0); Blood Urea Nitrogen 16 mg/dL (9-16); Calcium 8.3 mg/dL (8.4-10.2); Creatinine Clr Calc Pharmacy 76.5; Estimated Glomerular Filt Rate > 60; Glucose Random 204 mg/dL (60-115); Magnesium 1.9 mg/dL (1.6-2.6); Total Protein 5.2 g/dL (6.5-8.0)
[2023-11-18 14:07] LABS: Anion Gap 14 (12-20); Carbon Dioxide 20 mmol/L (22-29); Chloride 111 mmol/L (96-108); Potassium 3.2 mmol/L (3.3-5.1); Sodium 142 mmol/L (135-145)
--- NOTE | 2023-11-18 14:42 | PC.NURSE ---
right arm dressing changed at 1430. Patient tolerated well.
[2023-11-18 16:09] LABS: Glucose, Whole Blood 180 mg/dL (60-115)
[2023-11-18] MEDS: Potassium Chloride ER 20 MEQ TAB.ER.PRT PO (17:14)
[2023-11-18 20:48] LABS: Glucose, Whole Blood 136 mg/dL (60-115)
[2023-11-18] MEDS: Insulin Glargine,Hum.rec.anlog 100 UNIT/ML 10 ML VIAL 15 UNIT SUBCUT (21:46)
[2023-11-18] MEDS: 0.9 % Sodium Chloride Flush 3 ML SYRINGE IVFLUSH (21:50)
[2023-11-19] VITALS (18 sets, daily range): BP systolic 110–144; BP diastolic 36–84; PULSE 77–165; RESP 12–495; TEMP 36–36.4; O2SAT 90–96; BMI 35.3
[2023-11-19] MEDS: oxyCODONE HCl Immed Release 5 MG TABLET PO ×3 (00:07→21:44)
--- NOTE | 2023-11-19 00:30 | PM.EVENT ---
Event Note Date of Service: 11/19/23 Event Note: Nurse reported that patient with hypoxemia and increasing oxygen requirements. Patient tachypneic and tachycardic upon examination. Bilateral crackles present. Switched to CPAP with improvement in respiratory rate and heart rate. Patient states she feels better on CPAP. Will give additional dose of 40 IV Lasix as this is likely due to underlying pulmonary edema Time Spent With Patient Time: Total time managing care of this patient today ____ minutes.
[2023-11-19] MEDS: Furosemide 40 MG/4 ML VIAL IVPUSH ×3 (00:40→17:49)
[2023-11-19] MEDS: Octreotide Acetate 500 MCG in 0.9 % Sodium Chloride 500 ML 50.1 MCG IVCONT ×3 (00:41→18:21)
[2023-11-19] MEDS: Piperacillin Sodium/Tazobactam 4.5 GM in 0.9 % Sodium Chloride 100 ML IV ×4 (03:36→20:05)
[2023-11-19] MEDS: Pantoprazole Sodium 40 MG/10 ML VIAL IVPUSH ×2 (05:55→15:37)
[2023-11-19 07:19] LABS: Alanine Aminotransferase 15 U/L (0-31); Albumin Level 2.7 g/dL (3.5-5.0); Alkaline Phosphatase 103 U/L (39-117); Anion Gap 14 (12-20); Aspartate Amino Transferase 14 U/L (5-31); Bilirubin Total 0.7 mg/dL (0.0-1.0); Blood Urea Nitrogen 12 mg/dL (9-16); Calcium 7.3 mg/dL (8.4-10.2); Carbon Dioxide 27 mmol/L (22-29); Chloride 108 mmol/L (96-108); Creatinine Clr Calc Pharmacy 74.3; Estimated Glomerular Filt Rate > 60; Glucose Random 172 mg/dL (60-115); Magnesium 1.6 mg/dL (1.6-2.6); Potassium 3.2 mmol/L (3.3-5.1); Sodium 146 mmol/L (135-145); Total Protein 4.6 g/dL (6.5-8.0)
[2023-11-19 07:25] LABS: Glucose, Whole Blood 176 mg/dL (60-115)
[2023-11-19 07:28] LABS: Hematocrit 22.3 % (37.0-47.0); Hemoglobin 7.6 g/dl (12.0-16.0); Mean Corpuscular HGB Conc 34.1 g/dl (31.0-35.0); Mean Corpuscular Hemoglobin 31.9 pg (27.0-33.0); Mean Corpuscular Volume 93.7 fL (80.0-98.0); Mean Platelet Volume 12.2 fL (9.4-12.3); Platelet Count 71 X10*3/uL (160-400); Red Blood Count 2.38 X10*6/uL (4.20-5.50); Red Cell Distribution Width 15.1 % (11.0-16.0); White Blood Count 10.2 X10*3/uL (4.8-10.8)
[2023-11-19] MEDS: dilTIAZem HCL CD 180 MG CAP.ER.24H 360 MG PO (07:51)
[2023-11-19] MEDS: allopurinoL 300 MG TABLET 150 MG PO (07:53)
[2023-11-19] MEDS: guaiFENesin LA 600 MG TAB.ER.12H 1200 MG PO (07:53)
[2023-11-19] MEDS: Nystatin Oral Susp 500,000 UNIT/5 ML ORAL.SUSP 500000 UNIT PO ×3 (07:54→21:43)
[2023-11-19] MEDS: PARoxetine HCL 20 MG TABLET PO (07:54)
[2023-11-19] MEDS: Amiodarone HCL 200 MG TABLET PO (07:54)
[2023-11-19] MEDS: Nicotine 14 MG PATCH.TD24 TRANSDERMA (07:55)
[2023-11-19] MEDS: Lidocaine 4 % Patch ADH..PATCH 1 PATCH TRANSDERMA (07:55)
[2023-11-19] MEDS: Insulin Lispro 100 UNIT/ML 3 ML VIAL SUBCUT ×3 (07:57→21:43)
[2023-11-19] MEDS: 0.9 % Sodium Chloride Flush 3 ML SYRINGE IVFLUSH ×3 (07:58→21:45)
[2023-11-19] MEDS: Albuterol/Iprat 2.5/0.5MG 3 ML AMPUL.NEB INHALE ×3 (08:09→15:38)
[2023-11-19] MEDS: Fluticasone/Vilanterol 100/25 BLST.W.DEV 1 PUFF INHALE (08:09)
[2023-11-19] MEDS: Acetylcysteine 10 % 400 MG/4 ML VIAL INHALE (08:09)
--- NOTE | 2023-11-19 10:26 | MHC.CM.PN ---
EMR REVIEWED, PT W/ARF/ASP PNA/COPD ETC AND STEP DOWN FROM ICU, PT NOW ON CPAP, NO PLAN FOR DC AT THIS TIME, ANTIC PT W/DC TO STR ONCE MEDCIALLU CLEARED, CM WILL CONT TO FOLLOW DC NEEDS.
[2023-11-19] MEDS: Potassium Chloride ER 20 MEQ TAB.ER.PRT 40 MEQ PO (10:46)
[2023-11-19 11:07] LABS: Glucose, Whole Blood 160 mg/dL (60-115)
--- NOTE | 2023-11-19 11:58 | MHC.SL.SWA ---
Speech Pathologist Impression: Risk of aspiration, oropharyngeal dysphagia Risk of Aspiration Due to: Hx of Recent Extubation Weak Cough Weak Voice Dysphasia Diet Status: UPGRADE to NDD2 Liquid Consistency and Strategies for Safe Swallow: Liquid Intake Recommendation: [place] Thick Liquid Intake Strategies: No Straws Double Swallow Solid Food Consistency: Dietary Recommendations: Grnd/Mech Altered (NDD2) Additional Modifications to Solid Foods: Recommend UPGRADE to GROUND/MECH ALTERED (NDD2) diet and continue on NECTAR THICK liquids, pills CRUSHED in PUREE. Patient will need direct supervision during meals and strict aspiration precautions. Oral Medication Intake: Crushed with Puree Please contact the pharmacy regarding appropriate crushable or liquid drug formulations that are available whenever modified delivery is recommended. Compensatory Strategies and Precautions to be Taken for Safe Swallow: Sitting Upright (90 deg) Double Swallow Small Bites and Sips Alternate Liquids/Solids Rate of Ingestion Change Avoid Specific Foods Supervision While Eating and Drinking for Safe Swallow: Total Supervision (1:1) Foods to Avoid: Mixed textures Swallowing Recommended Treatments: Compens. Strategy Educat. Recommendation for Speech: Inpatient Speech Therapy Frequency/Duration: M-F Date Range for Service Req: Timeline to reassess: Child Therapist Clinican/Clinical Fellow: No Supervisory Statement: I have reviewed and agree with the student/clinical fellow's documentation: N/A Speech Language Pathologist: Angelina Hall M.A., CCC-WET MACHINE TENDER
--- NOTE | 2023-11-19 12:05 | MHC.CLN ---
F/U PT IS MODERATELY MALNOURISHED SEE FULL CLINICAL NUTRITION ASSESSMENT DATED 11/14/23 PO INTAKE VARIABLE DIET ADVANCED TO 2000DM DIET GRD M/S WITH NT LIQ PER 1ST PRESSMAN PT RECEIVING GELATEIN TID WITH MEALS TO INCREASE PO PROTEIN INTAKE SUPPLEMENT PROVIDES 480KCALS, 60G PROTEIN MONITOR PO INTAKE AND ENCOURAGE SUPPLEMENTS
[2023-11-19 15:24] LABS: Glucose, Whole Blood 84 mg/dL (60-115)
[2023-11-19 21:02] LABS: Glucose, Whole Blood 176 mg/dL (60-115)
[2023-11-19] MEDS: guaiFENesin DM 600/30 1 TAB TAB.ER.12H PO (21:43)
[2023-11-19] MEDS: Insulin Glargine,Hum.rec.anlog 100 UNIT/ML 10 ML VIAL 15 UNIT SUBCUT (21:44)
[2023-11-20] VITALS (15 sets, daily range): BP systolic 106–141; BP diastolic 60–70; PULSE 79–111; RESP 12–26; TEMP 36–37.1; O2SAT 87–98; BMI 35.8
[2023-11-20] MEDS: Piperacillin Sodium/Tazobactam 4.5 GM in 0.9 % Sodium Chloride 100 ML IV ×4 (03:39→21:58)
[2023-11-20] MEDS: Octreotide Acetate 500 MCG in 0.9 % Sodium Chloride 500 ML 50.1 MCG IVCONT (03:39)
[2023-11-20] MEDS: oxyCODONE HCl Immed Release 5 MG TABLET PO ×3 (03:44→17:24)
[2023-11-20] MEDS: Pantoprazole Sodium 40 MG/10 ML VIAL IVPUSH ×2 (05:45→17:07)
[2023-11-20 05:50] LABS: Hematocrit 22.5 % (37.0-47.0); Hemoglobin 7.6 g/dl (12.0-16.0); Mean Corpuscular HGB Conc 33.8 g/dl (31.0-35.0); Mean Corpuscular Hemoglobin 31.9 pg (27.0-33.0); Mean Corpuscular Volume 94.5 fL (80.0-98.0); Mean Platelet Volume 11.1 fL (9.4-12.3); Red Blood Count 2.38 X10*6/uL (4.20-5.50); Red Cell Distribution Width 14.8 % (11.0-16.0); White Blood Count 8.8 X10*3/uL (4.8-10.8)
[2023-11-20 05:52] LABS: Platelet Count 97 X10*3/uL (160-400)
[2023-11-20 05:57] LABS: INTERNATIONAL NORM RATIO 1.4 (0.9-1.1); Prothrombin Time 16.7 SEC (11.1-13.3)
[2023-11-20 05:58] LABS: VBG Base Excess 9.5 mmol/L; VBG HCO3 32 mmol/L (22-26); VBG pCO2 36 mmHg; VBG pH 7.55 (7.32-7.43); VBG pO2 66 mmHg
[2023-11-20 06:04] LABS: Venous Blood Gas Refer to POC result
[2023-11-20 06:20] LABS: B Type Natriuretic Peptide 164 pg/mL (<100)
[2023-11-20 06:22] LABS: Anion Gap 16 (12-20); Blood Urea Nitrogen 15 mg/dL (9-16); Calcium 8.4 mg/dL (8.4-10.2); Carbon Dioxide 27 mmol/L (22-29); Chloride 106 mmol/L (96-108); Creatinine Clr Calc Pharmacy 69.2; Estimated Glomerular Filt Rate > 60; Glucose Random 150 mg/dL (60-115); Magnesium 1.7 mg/dL (1.6-2.6); Potassium 2.8 mmol/L (3.3-5.1); Sodium 146 mmol/L (135-145)
[2023-11-20 06:43] LABS: Fibrinogen > 700 MG/DL (259-690)
[2023-11-20] MEDS: Potassium Chloride Packet 20 MEQ PACKET 40 MEQ PO (07:17)
[2023-11-20 07:38] LABS: Glucose, Whole Blood 123 mg/dL (60-115)
[2023-11-20] MEDS: Potassium Chloride/H20 10 MEQ/100 ML PIGGYBACK 100 MEQ IV ×4 (08:12→12:05)
[2023-11-20] MEDS: Fluticasone/Vilanterol 100/25 BLST.W.DEV 1 PUFF INHALE (08:32)
[2023-11-20] MEDS: Albuterol/Iprat 2.5/0.5MG 3 ML AMPUL.NEB INHALE ×4 (08:32→20:26)
[2023-11-20] MEDS: Nicotine 14 MG PATCH.TD24 TRANSDERMA (08:52)
[2023-11-20] MEDS: Furosemide 40 MG/4 ML VIAL IVPUSH ×2 (08:53→17:07)
[2023-11-20] MEDS: dilTIAZem HCL CD 180 MG CAP.ER.24H 360 MG PO (08:53)
[2023-11-20] MEDS: PARoxetine HCL 20 MG TABLET PO (08:53)
[2023-11-20] MEDS: Lidocaine 4 % Patch ADH..PATCH 1 PATCH TRANSDERMA (08:53)
[2023-11-20] MEDS: Insulin Lispro 100 UNIT/ML 3 ML VIAL SUBCUT ×3 (08:54→17:08)
[2023-11-20] MEDS: guaiFENesin DM 600/30 1 TAB TAB.ER.12H PO (08:54)
[2023-11-20] MEDS: Amiodarone HCL 200 MG TABLET PO (08:54)
[2023-11-20] MEDS: allopurinoL 300 MG TABLET 150 MG PO (08:54)
[2023-11-20] MEDS: methylPREDNISolone Sod Succ 40 MG/ML VIAL IVPUSH ×2 (09:10→22:00)
[2023-11-20] MEDS: Potassium Chloride ER 20 MEQ TAB.ER.PRT 40 MEQ PO (09:20)
[2023-11-20 11:05] LABS: Glucose, Whole Blood 237 mg/dL (60-115)
--- NOTE | 2023-11-20 11:16 | HO.PM.IMPN ---
Subjective Subjective Date of Service: 11/19/23 Interval History: Late entry for progress note for 11/19/23 Pt got dyspneic overnight and got an extra dose of furosemide 40 mg Currently on CPAP and feeling better but quite weak overall No chest pain No further GI bleeding Review of Systems Review of Systems: Yes all other systems are reviewed and are negative Physical Exam Vital Signs: Vital Signs: VS: T 97.3, P 85, R 12, BP 110/36, SaO2 92% on CPAP Gen: ill-appearing HEENT: sclera anicteric, moist mucus membranes Neck: supple Lungs: bilateral coarse inspiratory crackles Heart: irregular, no murmurs Abd: soft, non-tender, non-distended Ext: no edema Skin: warm/well-perfused Neuro: alert and oriented x3, no focal findings Psych: appropriate affect Objective Data Active Medications Acetaminophen (Acetaminophen 325 Mg Tablet) 975 mg PO Q6H PRN PRN Reason: mild pain, headache or fever Last Admin: 11/17/23 05:55 Dose: 975 mg Documented By: HUGO Albuterol Sulfate (Albuterol Sulfate (0.083%) 2.5 Mg/3 Ml Vial.Neb) 2.5 mg INHALE Q2H PRN PRN Reason: Shortness of Breath/Wheezing Last Admin: 11/18/23 07:28 Dose: 2.5 mg Documented By: SORAYA Albuterol/Ipratropium (Albuterol/Iprat 2.5/0.5mg 3 Ml Ampul.Neb) 3 ml INHALE RQ4H WHILE AWAKE [facility] Last Admin: 11/20/23 08:32 Dose: 3 ml Documented By: MIKAYLA Allopurinol (Allopurinol 300 Mg Tablet) 150 mg PO DAILY [facility] Last Admin: 11/20/23 08:54 Dose: 150 mg Documented By: OLGA Amiodarone HCl (Amiodarone Hcl 200 Mg Tablet) 200 mg PO DAILY [facility] Last Admin: 11/20/23 08:54 Dose: 200 mg Documented By: OLGA Apixaban (Apixaban 5 Mg Tablet) 5 mg PO BID [facility] Last Admin: 11/17/23 08:53 Dose: 5 mg Documented By: LEEANN Diltiazem HCl (Diltiazem Hcl Cd 180 Mg Cap.Er.24h) 360 mg PO DAILY [facility]; Protocol Last Admin: 11/20/23 08:53 Dose: 360 mg Documented By: OLGA Docusate Sodium (Docusate Sodium 100 Mg Capsule) 100 mg PO BID PRN PRN Reason: constipation Fluticasone/Vilanterol (Fluticasone/Vilanterol 100/25 Blst.W.Dev) 1 puff INHALE RDAILY [facility] Last Admin: 11/20/23 08:32 Dose: 1 puff Documented By: MIKAYLA Furosemide (Furosemide 40 Mg/4 Ml Vial) 40 mg IVPUSH BID@0900,1800 [facility]; Protocol Last Admin: 11/20/23 08:53 Dose: 40 mg Documented By: OLGA Glucose (Glucose Gel 15 Gm Gel..Gram.) 15 gm PO Q15M PRN; Protocol PRN Reason: per Hypoglycemia Standing Ord. Guaifenesin/Dextromethorphan (Guaifenesin Dm 600/30 1 Tab Tab.Er.12h) 1 tab PO BID [facility] Last Admin: 11/20/23 08:54 Dose: 1 tab Documented By: OLGA Piperacillin Sod/Tazobactam (Sod 4.5 gm/ Sodium Chloride) 100 mls @ 200 mls/hr IV Q6H [facility] Last Infusion: 11/20/23 10:13 Dose: Infused Documented By: OLGA Octreotide Acetate 500 mcg/ (Sodium Chloride) 501 mls @ 50.1 mls/hr IVCONT .Q10H [facility] Last Admin: 11/20/23 03:39 Dose: 50 mcg/hr, 50.1 mls/hr Documented By: BRIA Potassium Chloride (Potassium Chloride/H20) 10 meq in 100 mls @ 100 mls/hr IV Q1H [facility] Stop: 11/20/23 12:14 Last Admin: 11/20/23 11:07 Dose: 100 mls/hr Documented By: OLGA Insulin Glargine (Insulin Glargine,Hum.Rec.Anlog 100 Unit/Ml 10 Ml Vial) 15 unit SUBCUT BEDTIME [facility] Last Admin: 11/19/23 21:44 Dose: 15 unit Documented By: BRIA Insulin Human Lispro (Insulin Lispro 100 Unit/Ml 3 Ml Vial) 0 unit SUBCUT QIDACHS [facility]; Protocol Last Admin: 11/20/23 08:54 Dose: 2 unit Documented By: OLGA Lidocaine (Lidocaine 4 % Patch Adh..Patch) 1 patch TRANSDERMA DAILY [facility]; Protocol Last Admin: 11/20/23 08:53 Dose: 1 patch Documented By: OLGA Methylprednisolone Sodium Succinate (Methylprednisolone Sod Succ 40 Mg/Ml Vial) 40 mg IVPUSH Q12H [facility] Last Admin: 11/20/23 09:10 Dose: 40 mg Documented By: OLGA Nicotine (Nicotine 14 Mg Patch.Td24) 14 mg TRANSDERMA DAILY [facility] Last Admin: 11/20/23 08:52 Dose: 14 mg Documented By: OLGA Nystatin (Nystatin Oral Susp 500,000 Unit/5 Ml Oral.Susp) 500,000 unit PO QID [facility]; Protocol Last Admin: 11/19/23 21:43 Dose: 500,000 unit Documented By: BRIA Ondansetron HCl (Ondansetron Hcl 4 Mg/2 Ml Vial) 4 mg IVPUSH Q8H PRN PRN Reason: Nausea and Vomiting Last Admin: 11/12/23 20:05 Dose: 4 mg Documented By: TRUDY-SUE Oxycodone HCl (Oxycodone Hcl Immed Release 5 Mg Tablet) 5 mg PO Q6H PRN PRN Reason: Pain, Severe (Pain Scale 7-10) Last Admin: 11/20/23 03:44 Dose: 5 mg Documented By: BRIA Pantoprazole Sodium (Pantoprazole Sodium 40 Mg/10 Ml Vial) 40 mg IVPUSH BID@0630,1630 [facility] Last Admin: 11/20/23 05:45 Dose: 40 mg Documented By: BRIA Paroxetine HCl (Paroxetine Hcl 20 Mg Tablet) 20 mg PO DAILY@0900 [facility] Last Admin: 11/20/23 08:53 Dose: 20 mg Documented By: OLGA Sodium Chloride (0.9 % Sodium Chloride Flush 3 Ml Syringe) 3 ml IVFLUSH QSHIFT [facility] Last Admin: 11/19/23 21:45 Dose: 3 ml Documented By: BRIA Labs 11/20/23 05:41 11/20/23 05:41 Labs: Laboratory Results - last 48 hr 11/17/23 11/17/23 11/18/23 20:14 20:14 11:32 WBC RBC Hgb Hct MCV MCH MCHC RDW Plt Count MPV Absolute Nucleated RBC Nucleated RBC % (auto) PT INR Fibrinogen VBG pH VBG pCO2 VBG pO2 VBG HCO3 VBG O2 Saturation VBG Base Excess Sodium Potassium Chloride Carbon Dioxide Anion Gap BUN Creatinine Estim Creat Clear Calc Estimated GFR POC Glucose 183 H Random Glucose Calcium Magnesium Total Bilirubin AST ALT Alkaline Phosphatase B-Natriuretic Peptide Total Protein Albumin Blood Type A Negative Antibody Screen POSITIVE Antibody Identification Anti-C Anti-D Crossmatch See Detail Crossmatch ([facility]) See Detail Blood Bank Comment Cancelled 11/18/23 11/18/23 11/18/23 13:30 16:06 20:44 WBC RBC Hgb Hct MCV MCH MCHC RDW Plt Count MPV Absolute Nucleated RBC Nucleated RBC % (auto) PT INR Fibrinogen VBG pH VBG pCO2 VBG pO2 VBG HCO3 VBG O2 Saturation VBG Base Excess Sodium 142 Potassium 3.2 L D Chloride 111 H Carbon Dioxide 20 L Anion Gap 14 BUN 16 Creatinine 0.67 Estim Creat Clear Calc 76.5 Estimated GFR > 60 POC Glucose 180 H 136 H Random Glucose 204 H Calcium 8.3 L Magnesium 1.9 Total Bilirubin 1.1 H AST 13 ALT 14 Alkaline Phosphatase 90 B-Natriuretic Peptide Total Protein 5.2 L Albumin 2.8 L Blood Type Antibody Screen Antibody Identification Crossmatch Crossmatch ([facility]) Blood Bank Comment 11/19/23 11/19/23 11/19/23 06:04 07:19 11:03 WBC 10.2 RBC 2.38 L D Hgb 7.6 L D Hct 22.3 L MCV 93.7 MCH 31.9 MCHC 34.1 RDW 15.1 Plt Count 71 L MPV 12.2 Absolute Nucleated RBC 0.000 Nucleated RBC % (auto) 0.0 PT INR Fibrinogen VBG pH VBG pCO2 VBG pO2 VBG HCO3 VBG O2 Saturation VBG Base Excess Sodium 146 H Potassium 3.2 L Chloride 108 Carbon Dioxide 27 Anion Gap 14 BUN 12 Creatinine 0.69 Estim Creat Clear Calc 74.3 Estimated GFR > 60 POC Glucose 176 H 160 H Random Glucose 172 H Calcium 7.3 L D Magnesium 1.6 Total Bilirubin 0.7 AST 14 ALT 15 Alkaline Phosphatase 103 B-Natriuretic Peptide Total Protein 4.6 L Albumin 2.7 L Blood Type Antibody Screen Antibody Identification Crossmatch Crossmatch ([facility]) Blood Bank Comment Assessment and Plan (1) Aspiration pneumonia: Status: Acute Plan d21 78yo F with pAF on apixaban, COPD not on hO2, gout, HF with unknown EF, and DM2 presented with AMS, admitted for hypoxia due to CAP + COPD developed worsening hypoxia due to aspiration and intubated on 11/13/23 extubated 11/14/23 and stepped down to telemetry 11/15/23 acute hypoxic respiratory failure due to acute/chronic HFpEF - suspect due to volume overload due to blood transfusion. continue furosemide 40 mg IV q12h; CPAP as needed; trend BNP + monitor BMP/Mg. check I/Os BRBPR - hold Eliquis, give IV PPI, per GI will also give octreotide SQ aspiration pneumonia sepsis due to Enterococcus faecalis bacteremia [positive BCx 10/29, repeat BCx 11/01 and 11/12 negative] - azithro 10/30-11/04, vanco 10/30-10/31, ceftriaxone 10/31-11/01, pip-don 11/01- and again 11/12-, dapto 11/06-11/12 - discussed with ID. Total 21d antibiotics from 11/01, so today is d16. Can switch pip-don to amox-clav upon discharge. - placed on erythromycin for gastric motility in ICU; d/c'ed - CLIENT SERVICE CONSULTANT following; upgraded to NDD2 solids, conitnue nectar liquids COPD exacerbation - resolved s/p IV steroids; continue Breo + standing/prn nebs pancreatic abnormality - as part of workup of bacteremia, CT abdomen and pelvis was done that showed abrupt change in size of pancreas with atrophy plus ductal dilatation be on pancreatic neck; also extra and intrahepatic biliary dilatation to level of ampulla noted - follow-up MRI obtained to rule out pancreatic mass: no masses but showed changing caliber of pancreatic duct with distal atrophy of pancreatic parenchyma, tortuosity and dilatation of the duct, underlying stricture was not excluded; distended gallbladder with sludge and small stones, common bile duct 1.4 cm without intraductal filling defects, moderate intrahepatic biliary ductal dilatation tjat may represent biliary dyskinesia. - no abdominal pain, normal LFTs; per GI no aggressive invasive procedures as pt asymptomatic - TTE with no vegetation AF/RVR - was difficult to control and got diltiazem IV drip, digoxin IV, and amiodarone PO load. Stable on diltiazem 90 mg qid -> changed to 360 mg CD daily. Continue amiodarone. Currently in sinus rhythm with abundant PACs - Eliquis on hold - TTE 11/04: LVEF 60-65%, normal right ventricular cavity size and systolic function, no obvious vegetation noted thrombocytopenia - likely due to infection; monitor daily- improving hypoK, 3.2 - replete PO and recheck in AM; may need maintenance with diuresis acute metabolic encephalopathy due to hypoglycemia - resolved gout - continue allopurinol mood disorder - continue paroxetine DM2 - basal-bolus insulin moderate protein/oscar malnutrition - supplements code - per ICU attending, DNR/DNI, confirmed with pt and her daughter dispo - STR per PT In my clinical judgment, the patient requires continued inpatient hospitalization for the following reasons: resp failure Total time managing care of this patient today: 50 minutes. Quality Stroke Does the patient have a stroke diagnosis?: No VTE Prior VTE?: No VTE Risk Level:: Medical - moderate - high VTE Device Contraindication: Treatment Not Indicated VTE Drug Contraindication: N/A - Med Ordered
--- NOTE | 2023-11-20 11:24 | HO.PM.IMPN ---
Subjective Subjective Date of Service: 11/20/23 Interval History: still having dyspnea and so using CPAP no chest pain no fever Review of Systems Review of Systems: Yes all other systems are reviewed and are negative Physical Exam Vital Signs: Vital Signs: Last Vital Signs Temp 97.2 F 11/20/23 11:04 Pulse 111 H 11/20/23 11:04 Resp 18 11/20/23 11:04 BP 140/70 H 11/20/23 11:04 Pulse Ox 91 L 11/20/23 11:04 O2 Del Method CPAP 11/20/23 11:04 O2 Flow Rate 4 11/19/23 11:40 FiO2 30 11/14/23 12:00 Oxygen Flow Rate 2 11/10/23 07:30 BMI result Body Mass Index 35.8 Gen: ill-appearing HEENT: sclera anicteric, moist mucus membranes Neck: supple Lungs: diminished Heart: irregular, no murmurs Abd: soft, non-tender, non-distended Ext: no edema Skin: warm/well-perfused Neuro: alert and oriented x3, no focal findings Psych: appropriate affect Objective Data Active Medications Acetaminophen (Acetaminophen 325 Mg Tablet) 975 mg PO Q6H PRN PRN Reason: mild pain, headache or fever Last Admin: 11/17/23 05:55 Dose: 975 mg Documented By: HUGO Albuterol Sulfate (Albuterol Sulfate (0.083%) 2.5 Mg/3 Ml Vial.Neb) 2.5 mg INHALE Q2H PRN PRN Reason: Shortness of Breath/Wheezing Last Admin: 11/18/23 07:28 Dose: 2.5 mg Documented By: SORAYA Albuterol/Ipratropium (Albuterol/Iprat 2.5/0.5mg 3 Ml Ampul.Neb) 3 ml INHALE RQ4H WHILE AWAKE [facility] Last Admin: 11/20/23 08:32 Dose: 3 ml Documented By: MIKAYLA Allopurinol (Allopurinol 300 Mg Tablet) 150 mg PO DAILY [facility] Last Admin: 11/20/23 08:54 Dose: 150 mg Documented By: OLGA Amiodarone HCl (Amiodarone Hcl 200 Mg Tablet) 200 mg PO DAILY [facility] Last Admin: 11/20/23 08:54 Dose: 200 mg Documented By: OLGA Apixaban (Apixaban 5 Mg Tablet) 5 mg PO BID [facility] Last Admin: 11/17/23 08:53 Dose: 5 mg Documented By: SAMIFERICO Diltiazem HCl (Diltiazem Hcl Cd 180 Mg Cap.Er.24h) 360 mg PO DAILY [facility]; Protocol Last Admin: 11/20/23 08:53 Dose: 360 mg Documented By: OLGA Docusate Sodium (Docusate Sodium 100 Mg Capsule) 100 mg PO BID PRN PRN Reason: constipation Fluticasone/Vilanterol (Fluticasone/Vilanterol 100/25 Blst.W.Dev) 1 puff INHALE RDAILY [facility] Last Admin: 11/20/23 08:32 Dose: 1 puff Documented By: MIKAYLA Furosemide (Furosemide 40 Mg/4 Ml Vial) 40 mg IVPUSH BID@0900,1800 [facility]; Protocol Last Admin: 11/20/23 08:53 Dose: 40 mg Documented By: OLGA Glucose (Glucose Gel 15 Gm Gel..Gram.) 15 gm PO Q15M PRN; Protocol PRN Reason: per Hypoglycemia Standing Ord. Guaifenesin/Dextromethorphan (Guaifenesin Dm 600/30 1 Tab Tab.Er.12h) 1 tab PO BID [facility] Last Admin: 11/20/23 08:54 Dose: 1 tab Documented By: OLGA Piperacillin Sod/Tazobactam (Sod 4.5 gm/ Sodium Chloride) 100 mls @ 200 mls/hr IV Q6H [facility] Last Infusion: 11/20/23 10:13 Dose: Infused Documented By: OLGA Octreotide Acetate 500 mcg/ (Sodium Chloride) 501 mls @ 50.1 mls/hr IVCONT .Q10H [facility] Last Admin: 11/20/23 03:39 Dose: 50 mcg/hr, 50.1 mls/hr Documented By: BRIA Potassium Chloride (Potassium Chloride/H20) 10 meq in 100 mls @ 100 mls/hr IV Q1H [facility] Stop: 11/20/23 12:14 Last Admin: 11/20/23 11:07 Dose: 100 mls/hr Documented By: OLGA Insulin Glargine (Insulin Glargine,Hum.Rec.Anlog 100 Unit/Ml 10 Ml Vial) 15 unit SUBCUT BEDTIME [facility] Last Admin: 11/19/23 21:44 Dose: 15 unit Documented By: BRIA Insulin Human Lispro (Insulin Lispro 100 Unit/Ml 3 Ml Vial) 0 unit SUBCUT QIDACHS [facility]; Protocol Last Admin: 11/20/23 08:54 Dose: 2 unit Documented By: OLGA Lidocaine (Lidocaine 4 % Patch Adh..Patch) 1 patch TRANSDERMA DAILY [facility]; Protocol Last Admin: 11/20/23 08:53 Dose: 1 patch Documented By: OLGA Methylprednisolone Sodium Succinate (Methylprednisolone Sod Succ 40 Mg/Ml Vial) 40 mg IVPUSH Q12H [facility] Last Admin: 11/20/23 09:10 Dose: 40 mg Documented By: OLGA Nicotine (Nicotine 14 Mg Patch.Td24) 14 mg TRANSDERMA DAILY [facility] Last Admin: 11/20/23 08:52 Dose: 14 mg Documented By: OLGA Nystatin (Nystatin Oral Susp 500,000 Unit/5 Ml Oral.Susp) 500,000 unit PO QID [facility]; Protocol Last Admin: 11/19/23 21:43 Dose: 500,000 unit Documented By: BRIA Ondansetron HCl (Ondansetron Hcl 4 Mg/2 Ml Vial) 4 mg IVPUSH Q8H PRN PRN Reason: Nausea and Vomiting Last Admin: 11/12/23 20:05 Dose: 4 mg Documented By: BRAD Oxycodone HCl (Oxycodone Hcl Immed Release 5 Mg Tablet) 5 mg PO Q6H PRN PRN Reason: Pain, Severe (Pain Scale 7-10) Last Admin: 11/20/23 03:44 Dose: 5 mg Documented By: BRIA Pantoprazole Sodium (Pantoprazole Sodium 40 Mg/10 Ml Vial) 40 mg IVPUSH BID@0630,1630 [facility] Last Admin: 11/20/23 05:45 Dose: 40 mg Documented By: BRIA Paroxetine HCl (Paroxetine Hcl 20 Mg Tablet) 20 mg PO DAILY@0900 [facility] Last Admin: 11/20/23 08:53 Dose: 20 mg Documented By: OLGA Sodium Chloride (0.9 % Sodium Chloride Flush 3 Ml Syringe) 3 ml IVFLUSH QSHIFT [facility] Last Admin: 11/19/23 21:45 Dose: 3 ml Documented By: BRIA Labs 11/20/23 05:41 11/20/23 05:41 Labs: Laboratory Results - last 24 hr 11/19/23 11/19/23 11/20/23 15:20 20:58 05:41 MCV 94.5 MCH 31.9 MCHC 33.8 RDW 14.8 Plt Count 97 L D MPV 11.1 Absolute Nucleated RBC 0.000 Nucleated RBC % (auto) 0.0 PT 16.7 H INR 1.4 H Fibrinogen > 700 H VBG pH VBG pCO2 VBG pO2 VBG HCO3 VBG O2 Saturation VBG Base Excess Anion Gap 16 Estim Creat Clear Calc 69.2 Estimated GFR > 60 POC Glucose 84 176 H Random Glucose 150 H Calcium 8.4 D Magnesium 1.7 B-Natriuretic Peptide 164 H 11/20/23 11/20/23 11/20/23 05:47 07:34 10:57 MCV MCH MCHC RDW Plt Count MPV Absolute Nucleated RBC Nucleated RBC % (auto) PT INR Fibrinogen VBG pH 7.55 H VBG pCO2 36 VBG pO2 66 VBG HCO3 32 H VBG O2 Saturation Not Reportable VBG Base Excess 9.5 Anion Gap Estim Creat Clear Calc Estimated GFR POC Glucose 123 H 237 H Random Glucose Calcium Magnesium B-Natriuretic Peptide Assessment and Plan (1) Aspiration pneumonia: Status: Acute Plan d21 78yo F with pAF on apixaban, COPD not on hO2, gout, HF with unknown EF, and DM2 presented with AMS, admitted for hypoxia due to CAP + COPD developed worsening hypoxia due to aspiration and intubated on 11/13/23 extubated 11/14/23 and stepped down to telemetry 11/15/23 acute hypoxic respiratory failure due to acute/chronic HFpEF and acute COPD exacerbation - continue furosemide 40 mg IV q12h; CPAP as needed; trend BNP + monitor BMP/Mg. check I/Os - CT chest without contrast. start IV methylprednisolone. continue nebs. check PCT. BRBPR - holding Eliquis. GI consulted. Hb stable. continue IV PPI + will change IV to SQ octreotide aspiration pneumonia sepsis due to Enterococcus faecalis bacteremia [positive BCx 10/29, repeat BCx 11/01 and 11/12 negative] - azithro 10/30-11/04, vanco 10/30-10/31, ceftriaxone 10/31-11/01, pip-don 11/01- and again 11/12-, dapto 11/06-11/12 - discussed with ID. Total 21d antibiotics from 11/01, so today is d17. Can switch pip-don to amox-clav upon discharge. Check PCT and repeat CT chest today. - placed on erythromycin for gastric motility in ICU; d/c'ed - COMMISSION AGENT LIVESTOCK following; NDD2 solids, nectar liquids pancreatic abnormality - as part of workup of bacteremia, CT abdomen and pelvis was done that showed abrupt change in size of pancreas with atrophy plus ductal dilatation be on pancreatic neck; also extra and intrahepatic biliary dilatation to level of ampulla noted - follow-up MRI obtained to rule out pancreatic mass: no masses but showed changing caliber of pancreatic duct with distal atrophy of pancreatic parenchyma, tortuosity and dilatation of the duct, underlying stricture was not excluded; distended gallbladder with sludge and small stones, common bile duct 1.4 cm without intraductal filling defects, moderate intrahepatic biliary ductal dilatation tjat may represent biliary dyskinesia. - no abdominal pain, normal LFTs; per GI no aggressive invasive procedures as pt asymptomatic - TTE with no vegetation AF/RVR - was difficult to control and got diltiazem IV drip, digoxin IV, and amiodarone PO load. Stable on diltiazem 90 mg qid -> changed to 360 mg CD daily. Continue amiodarone. Currently in sinus rhythm with abundant PACs - Eliquis on hold - TTE 11/04: LVEF 60-65%, normal right ventricular cavity size and systolic function, no obvious vegetation noted thrombocytopenia - likely due to infection; monitor daily; continues to improve hypoK, 2.8 - replete IV+PO, recheck level in AM acute metabolic encephalopathy due to hypoglycemia - resolved gout - continue allopurinol mood disorder - continue paroxetine DM2 - basal-bolus insulin moderate protein/oscar malnutrition - supplements code - per ICU attending, DNR/DNI, confirmed with pt and her daughter dispo - STR per PT In my clinical judgment, the patient requires continued inpatient hospitalization for the following reasons: resp failure Total time managing care of this patient today: 50 minutes. Quality Stroke Does the patient have a stroke diagnosis?: No VTE Prior VTE?: No VTE Risk Level:: Medical - moderate - high VTE Device Contraindication: Treatment Not Indicated VTE Drug Contraindication: N/A - Med Ordered
[2023-11-20] MEDS: Octreotide Acetate 100 MCG/ML AMPUL 50 MCG SUBCUT ×2 (12:07→21:57)
[2023-11-20 12:12] LABS: Procalcitonin 0.69 ng/mL
[2023-11-20] MEDS: Nystatin Oral Susp 500,000 UNIT/5 ML ORAL.SUSP 500000 UNIT PO (14:13)
[2023-11-20] MEDS: 0.9 % Sodium Chloride Flush 3 ML SYRINGE IVFLUSH ×2 (14:41→22:02)
--- NOTE | 2023-11-20 14:54 | MHC.SPEECHCO ---
Unable to work with Pt. She was receiving RT treatment on arrival at [facility]. CIRCULAR RIPSAW OPERATOR will continue to follow for potential upgrade.
[2023-11-20 17:04] LABS: Glucose, Whole Blood 268 mg/dL (60-115)
--- NOTE | 2023-11-20 17:26 | PC.NURSE ---
Pt very paranoid ripping off her monitors and oxygen , demending Oxycodone now for her lower back pain , RN spoke with DR Pulido and pt was medicated with Oxycodpne 5 my PO now as per DR Tess montes .
--- NOTE | 2023-11-20 17:32 | PC.NURSE ---
Иван upper extremities edematous left is worse than right with bruises . IV access to left lower arm was removed this am d/t infiltration , order for PICC line was placed by , pt refused the procedure this afternoon , became very agitated and paranoid . pt has one IV access to right upper arm that is still intact
--- NOTE | 2023-11-20 17:37 | PC.NURSE ---
CT chest was ordreded , pt is refusing the test at this time , oxygen delivery was changed to high flow 40 l/ 60% , pt able to take po fluids with supervision , needs frequent redirection re: aspiration precation
[2023-11-20] MEDS: HYDROmorphone HCl 0.5 MG/0.5 ML SYRINGE 0.25 MG IVPUSH (20:48)
--- NOTE | 2023-11-20 20:53 | PM.EVENT ---
Event Note Date of Service: 11/20/23 Event Note: CONFERENCE ORGANIZER called due to patient being found in respiratory distress satting in the 70s. She had been on high-flow O2 due to aspiration pneumonia but unfortunately it appears the patient may have dislodged the tubing. On arrival, patient with increased work of breathing with accessory muscle usage. Crackles noted to the lungs bilaterally. school bus monitor reading atrial fibrillation with heart rate in the low 1 100s. Blood pressure stable around 150/80. Respiratory therapy placed patient on BiPAP the patient notably anxious with ongoing increased work of breathing. She was given 0.25 mg IV Dilaudid with improvement in heart rate and decreased work of breathing. Patient appears much more comfortable though does still have some accessory muscle usage in the abdomen. HR improved to 80s and oximetry around 90%. Will check cxr for any evidence of worsening pneumonia. Will also check CBC, BMP magnesium. Time Spent With Patient Time: Total time managing care of this patient today ____ minutes.
[2023-11-20 21:11] LABS: Basophils Percent Auto 0.4 % (0-2); Hemoglobin 7.5 g/dl (12.0-16.0); Imm Gran Abs Auto 0.03 X10*3/uL (0.00-0.03); Imm Gran Pct Auto 0.4 % (0.0-0.4); Lymphocytes Absolute Auto 0.4 X10*3/uL (1.2-4.9); Lymphocytes Percent Auto 5.1 % (20-40); MANUAL DIFF FLAG SCAN; Mean Corpuscular HGB Conc 32.6 g/dl (31.0-35.0); Mean Corpuscular Hemoglobin 31.1 pg (27.0-33.0); Mean Corpuscular Volume 95.4 fL (80.0-98.0); Mean Platelet Volume 11.6 fL (9.4-12.3); Monocytes Absolute Auto 0.3 X10*3/uL (0.1-1.2); Monocytes Percent Auto 3.4 % (2-11); NRBC Pct Auto 0.3 /100WBC (0.0-0.2); Neutrophils Absolute Auto 7.2 x10*3/uL (2.0-8.3); Neutrophils Percent Auto 90.7 % (45-73); Platelet Count 112 X10*3/uL (160-400); Red Blood Count 2.41 X10*6/uL (4.20-5.50); Red Cell Distribution Width 14.8 % (11.0-16.0); SCAN SMEAR FLAG 1
[2023-11-20 21:24] LABS: Anion Gap 16 (12-20); Blood Urea Nitrogen 21 mg/dL (9-16); Calcium 9.1 mg/dL (8.4-10.2); Carbon Dioxide 24 mmol/L (22-29); Chloride 105 mmol/L (96-108); Creatinine Clr Calc Pharmacy 59.1; Estimated Glomerular Filt Rate > 60; Glucose Random 218 mg/dL (60-115); Magnesium 1.7 mg/dL (1.6-2.6); Potassium 3.8 mmol/L (3.3-5.1); Sodium 141 mmol/L (135-145)
[2023-11-20 21:45] LABS: SLIDE REVIEW VERIFIED; White Blood Count 7.9 X10*3/uL (4.8-10.8)
--- NOTE | 2023-11-20 22:30 | PC.NURSE ---
respiratory therapy notified that bipap machine was alarming for a leak, RN unable to clear and fix the alarm. Respiratory to bedside and assessed the situation, aware of the alarm which is r/t to patient's anatomy. Patient oxygen sat is WNL for patient, will continue to safety round on patient more frequently, respiratory aware.
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
[2023-11-21] VITALS (20 sets, daily range): BP systolic 113–143; BP diastolic 57–82; PULSE 88–132; RESP 16–26; TEMP 36.2–36.8; O2SAT 90–100; BMI 35.9
--- NOTE | 2023-11-21 01:45 | PC.NURSE ---
pt refusing vital signs, verbally abusive toward staff. pt demanding water. patient spoon fed, nectar thick water per order. patient desat quickly to low 80s. Bipap mask returned to face and patient fighting with staff to take it off. patient told to take some breaths for oxygen recovery, once stable patient spoon fed more nectar thick water. tolerated well. mask reapplied, oxygen levels back WNL for patient. patient soaked in urine, refusing to be cleaned, hitting and kicking staff during attempts to clean.
[2023-11-21] MEDS: Piperacillin Sodium/Tazobactam 4.5 GM in 0.9 % Sodium Chloride 100 ML IV ×4 (03:30→23:00)
[2023-11-21] MEDS: Octreotide Acetate 100 MCG/ML AMPUL 50 MCG SUBCUT (03:30)
--- NOTE | 2023-11-21 03:46 | PC.NURSE ---
respiratory notified that patient is refusing all care and stating, I will not let you do anything until you take me off this machine. Respiratory to bedside promptly and patient switched back to high flow, tolerating well, O2 saturation 92%. Patient continues refusing care at this time. will check back in on patient to provide incontinence care in 15 minutes.
--- NOTE | 2023-11-21 03:57 | PC.NURSE ---
patient refusing to answer for pain assessment.
[2023-11-21] MEDS: oxyCODONE HCl Immed Release 5 MG TABLET PO ×3 (05:36→18:39)
[2023-11-21] MEDS: Pantoprazole Sodium 40 MG/10 ML VIAL 80 MG IVPUSH (06:33)
--- NOTE | 2023-11-21 06:36 | PC.NURSE ---
pt more cooperative this AM. Allowing staff to change bed, patient found to have incontinent episode of stool, verenice blood in liquid stool. MD notified. new orders placed, labs drawn stat. patient supervised with nectar thick liquids. medicated for pain with oxycodone PRN, crushed in applesauce. pt oxygen sat decreases to low 80s while drinking/eating. all needs met, safety and comfort maintained.
[2023-11-21 06:44] LABS: Anion Gap 19 (12-20); Blood Urea Nitrogen 22 mg/dL (9-16); Calcium 8.7 mg/dL (8.4-10.2); Carbon Dioxide 23 mmol/L (22-29); Chloride 104 mmol/L (96-108); Creatinine Clr Calc Pharmacy 55.3; Estimated Glomerular Filt Rate 59; Glucose Random 325 mg/dL (60-115); Magnesium 1.8 mg/dL (1.6-2.6); Potassium 3.5 mmol/L (3.3-5.1); Sodium 142 mmol/L (135-145)
[2023-11-21 06:49] LABS: B Type Natriuretic Peptide 95 pg/mL (<100)
[2023-11-21 06:54] LABS: Hematocrit 21.1 % (37.0-47.0); Mean Corpuscular HGB Conc 31.3 g/dl (31.0-35.0); Mean Corpuscular Hemoglobin 31.6 pg (27.0-33.0); Mean Platelet Volume 11.9 fL (9.4-12.3); NRBC Pct Auto 0.3 /100WBC (0.0-0.2); Platelet Count 119 X10*3/uL (160-400); Red Blood Count 2.09 X10*6/uL (4.20-5.50); Red Cell Distribution Width 14.9 % (11.0-16.0); White Blood Count 6.2 X10*3/uL (4.8-10.8)
[2023-11-21 07:34] LABS: Glucose, Whole Blood 343 mg/dL (60-115)
[2023-11-21 07:35] LABS: Hemoglobin 6.6 g/dl (12.0-16.0)
[2023-11-21] MEDS: Lidocaine 4 % Patch ADH..PATCH 1 PATCH TRANSDERMA (08:09)
[2023-11-21] MEDS: Nicotine 14 MG PATCH.TD24 TRANSDERMA (08:09)
[2023-11-21] MEDS: Nystatin Oral Susp 500,000 UNIT/5 ML ORAL.SUSP 500000 UNIT PO ×3 (08:10→17:04)
[2023-11-21] MEDS: Amiodarone HCL 200 MG TABLET PO (08:11)
[2023-11-21] MEDS: PARoxetine HCL 20 MG TABLET PO (08:11)
[2023-11-21] MEDS: dilTIAZem HCL CD 180 MG CAP.ER.24H 360 MG PO (08:11)
[2023-11-21] MEDS: methylPREDNISolone Sod Succ 40 MG/ML VIAL IVPUSH ×2 (08:11→23:00)
[2023-11-21] MEDS: allopurinoL 300 MG TABLET 150 MG PO (08:13)
[2023-11-21] MEDS: guaiFENesin DM 600/30 1 TAB TAB.ER.12H PO (08:13)
[2023-11-21] MEDS: Furosemide 40 MG/4 ML VIAL IVPUSH ×3 (08:13→17:04)
[2023-11-21] MEDS: Insulin Lispro 100 UNIT/ML 3 ML VIAL SUBCUT ×4 (08:15→23:00)
[2023-11-21] MEDS: 0.9 % Sodium Chloride Flush 3 ML SYRINGE IVFLUSH ×2 (08:16→17:03)
[2023-11-21] MEDS: Albuterol/Iprat 2.5/0.5MG 3 ML AMPUL.NEB INHALE ×3 (08:25→20:16)
[2023-11-21] MEDS: Fluticasone/Vilanterol 100/25 BLST.W.DEV 1 PUFF INHALE (08:26)
[2023-11-21] MEDS: Octreotide Acetate 500 MCG in 0.9 % Sodium Chloride 500 ML 50.1 MCG IVCONT ×2 (08:47→19:58)
--- NOTE | 2023-11-21 11:57 | MHC.CM.PN ---
EMR REVIEWED, PT NOW ON HI FLOW O2, HGB 6.6 AND PLAN FOR TRANSFUSION, NO PLAN FOR DC AT THIS TIME, PT WILL NEED STR ONCE MEDICALLY CLEARED, CM WILL CONT TO FOLLOW DC NEEDS.
--- NOTE | 2023-11-21 12:01 | HO.PM.IMPN ---
Subjective Subjective Date of Service: 11/21/23 Interval History: another episode of melena this AM Hb 6.6 denies lightheadedness [employer] overnight for hypoxia/dyspnea; it turns out her HFNC tubing had gotten dislodged Review of Systems Review of Systems: Yes all other systems are reviewed and are negative Physical Exam Vital Signs: Vital Signs: Last Vital Signs Temp 97.3 F 11/21/23 07:40 Pulse 117 H 11/21/23 08:29 Resp 22 H 11/21/23 08:29 BP 121/75 11/21/23 07:40 Pulse Ox 94 11/21/23 07:40 O2 Del Method High Flow Nasal C annula 11/21/23 07:40 O2 Flow Rate 45 11/21/23 07:40 FiO2 60 11/21/23 07:40 Oxygen Flow Rate 2 11/10/23 07:30 BMI result Body Mass Index 35.9 Gen: ill-appearing HEENT: sclera anicteric, moist mucus membranes Neck: supple Lungs: diminished Heart: irregular, rapid, no murmurs Abd: soft, non-tender, non-distended Ext: no edema Skin: warm/well-perfused Neuro: alert and oriented x3, no focal findings Psych: appropriate affect Objective Data Active Medications Acetaminophen (Acetaminophen 325 Mg Tablet) 975 mg PO Q6H PRN PRN Reason: mild pain, headache or fever Last Admin: 11/17/23 05:55 Dose: 975 mg Documented By: HUGO Albuterol Sulfate (Albuterol Sulfate (0.083%) 2.5 Mg/3 Ml Vial.Neb) 2.5 mg INHALE Q2H PRN PRN Reason: Shortness of Breath/Wheezing Last Admin: 11/18/23 07:28 Dose: 2.5 mg Documented By: SORAYA Albuterol/Ipratropium (Albuterol/Iprat 2.5/0.5mg 3 Ml Ampul.Neb) 3 ml INHALE RQ4H WHILE AWAKE [facility] Last Admin: 11/21/23 08:25 Dose: 3 ml Documented By: AXEL Allopurinol (Allopurinol 300 Mg Tablet) 150 mg PO DAILY [facility] Last Admin: 11/21/23 08:13 Dose: 150 mg Documented By: RONALD Amiodarone HCl (Amiodarone Hcl 200 Mg Tablet) 200 mg PO DAILY [facility] Last Admin: 11/21/23 08:11 Dose: 200 mg Documented By: RONALD Apixaban (Apixaban 5 Mg Tablet) 5 mg PO BID [facility] Last Admin: 11/17/23 08:53 Dose: 5 mg Documented By: SAMIFERICO Diltiazem HCl (Diltiazem Hcl Cd 180 Mg Cap.Er.24h) 360 mg PO DAILY [facility]; Protocol Last Admin: 11/21/23 08:11 Dose: 360 mg Documented By: RONALD Docusate Sodium (Docusate Sodium 100 Mg Capsule) 100 mg PO BID PRN PRN Reason: constipation Fluticasone/Vilanterol (Fluticasone/Vilanterol 100/25 Blst.W.Dev) 1 puff INHALE RDAILY [facility] Last Admin: 11/21/23 08:26 Dose: 1 puff Documented By: AXEL Furosemide (Furosemide 40 Mg/4 Ml Vial) 40 mg IVPUSH BID@0900,1800 [facility]; Protocol Last Admin: 11/20/23 17:07 Dose: 40 mg Documented By: OLGA Glucose (Glucose Gel 15 Gm Gel..Gram.) 15 gm PO Q15M PRN; Protocol PRN Reason: per Hypoglycemia Standing Ord. Guaifenesin/Dextromethorphan (Guaifenesin Dm 600/30 1 Tab Tab.Er.12h) 1 tab PO BID [facility] Last Admin: 11/21/23 08:13 Dose: 1 tab Documented By: RONALD Piperacillin Sod/Tazobactam (Sod 4.5 gm/ Sodium Chloride) 100 mls @ 200 mls/hr IV Q6H [facility] Last Infusion: 11/21/23 10:22 Dose: Infused Documented By: RONALD Octreotide Acetate 500 mcg/ (Sodium Chloride) 501 mls @ 50.1 mls/hr IVCONT .Q10H [facility] Last Admin: 11/21/23 08:47 Dose: 50 mcg/hr, 50.1 mls/hr Documented By: RONALD Insulin Glargine (Insulin Glargine,Hum.Rec.Anlog 100 Unit/Ml 10 Ml Vial) 18 unit SUBCUT BEDTIME [facility] Insulin Human Lispro (Insulin Lispro 100 Unit/Ml 3 Ml Vial) 0 unit SUBCUT QIDACHS [facility]; Protocol Last Admin: 11/21/23 08:15 Dose: 12 unit Documented By: RONALD Lidocaine (Lidocaine 4 % Patch Adh..Patch) 1 patch TRANSDERMA DAILY [facility]; Protocol Last Admin: 11/21/23 08:09 Dose: 1 patch Documented By: RONALD Methylprednisolone Sodium Succinate (Methylprednisolone Sod Succ 40 Mg/Ml Vial) 40 mg IVPUSH Q12H [facility] Last Admin: 11/21/23 08:11 Dose: 40 mg Documented By: RONALD Nicotine (Nicotine 14 Mg Patch.Td24) 14 mg TRANSDERMA DAILY [facility] Last Admin: 11/21/23 08:09 Dose: 14 mg Documented By: RONALD Nystatin (Nystatin Oral Susp 500,000 Unit/5 Ml Oral.Susp) 500,000 unit PO QID [facility]; Protocol Last Admin: 11/21/23 08:10 Dose: 500,000 unit Documented By: RONALD Ondansetron HCl (Ondansetron Hcl 4 Mg/2 Ml Vial) 4 mg IVPUSH Q8H PRN PRN Reason: Nausea and Vomiting Last Admin: 11/12/23 20:05 Dose: 4 mg Documented By: TRUDY-SUE Oxycodone HCl (Oxycodone Hcl Immed Release 5 Mg Tablet) 5 mg PO Q6H PRN PRN Reason: Pain, Severe (Pain Scale 7-10) Last Admin: 11/21/23 05:36 Dose: 5 mg Documented By: ROBBI Pantoprazole Sodium (Pantoprazole Sodium 40 Mg/10 Ml Vial) 40 mg IVPUSH BID@0630,1630 [facility] Paroxetine HCl (Paroxetine Hcl 20 Mg Tablet) 20 mg PO DAILY@0900 [facility] Last Admin: 11/21/23 08:11 Dose: 20 mg Documented By: RONALD Sodium Chloride (0.9 % Sodium Chloride Flush 3 Ml Syringe) 3 ml IVFLUSH QSHIFT [facility] Last Admin: 11/21/23 08:16 Dose: 3 ml Documented By: RONALD Labs 11/21/23 06:03 11/21/23 06:03 Labs: Laboratory Results - last 24 hr 11/20/23 11/20/23 11/20/23 05:41 17:00 21:02 MCV 95.4 MCH 31.1 MCHC 32.6 RDW 14.8 Plt Count 112 L MPV 11.6 Immature Gran % (Auto) 0.4 Neut % (Auto) 90.7 H Lymph % (Auto) 5.1 L [place] % (Auto) 3.4 Eos % (Auto) 0.0 Baso % (Auto) 0.4 Lymph # (Auto) 0.4 L [place] # (Auto) 0.3 Eos # (Auto) 0.0 Baso # (Auto) 0.0 Abs Immat Gran (auto) 0.03 Absolute Neuts (auto) 7.2 Absolute Nucleated RBC 0.020 H Nucleated RBC % (auto) 0.3 H Smear Tech's Comments VERIFIED Anion Gap 16 Estim Creat Clear Calc 59.1 Estimated GFR > 60 POC Glucose 268 H Random Glucose 218 H Calcium 9.1 D Magnesium 1.7 B-Natriuretic Peptide Procalcitonin 0.69 Blood Type Antibody Screen Antibody Identification Crossmatch ([facility]) 11/21/23 11/21/23 11/21/23 06:03 07:31 08:41 MCV 101.0 H D MCH 31.6 MCHC 31.3 RDW 14.9 Plt Count 119 L MPV 11.9 Immature Gran % (Auto) Neut % (Auto) Lymph % (Auto) [place] % (Auto) Eos % (Auto) Baso % (Auto) Lymph # (Auto) [place] # (Auto) Eos # (Auto) Baso # (Auto) Abs Immat Gran (auto) Absolute Neuts (auto) Absolute Nucleated RBC 0.020 H Nucleated RBC % (auto) 0.3 H Smear Tech's Comments Anion Gap 19 Estim Creat Clear Calc 55.3 Estimated GFR 59 POC Glucose 343 H Random Glucose 325 H Calcium 8.7 Magnesium 1.8 B-Natriuretic Peptide 95 Procalcitonin Blood Type A Negative Antibody Screen POSITIVE Antibody Identification Anti-C Crossmatch ([facility]) 11/21/23 08:41 MCV MCH MCHC RDW Plt Count MPV Immature Gran % (Auto) Neut % (Auto) Lymph % (Auto) [place] % (Auto) Eos % (Auto) Baso % (Auto) Lymph # (Auto) [place] # (Auto) Eos # (Auto) Baso # (Auto) Abs Immat Gran (auto) Absolute Neuts (auto) Absolute Nucleated RBC Nucleated RBC % (auto) Smear Tech's Comments Anion Gap Estim Creat Clear Calc Estimated GFR POC Glucose Random Glucose Calcium Magnesium B-Natriuretic Peptide Procalcitonin Blood Type Antibody Screen Antibody Identification Anti-D Crossmatch ([facility]) See Detail Assessment and Plan (1) Aspiration pneumonia: Status: Acute Plan d22 78yo F with pAF on apixaban, COPD not on hO2, gout, HF with unknown EF, and DM2 presented with AMS, admitted for hypoxia due to CAP + COPD developed worsening hypoxia due to aspiration and intubated on 11/13/23 extubated 11/14/23 and stepped down to telemetry 11/15/23 acute hypoxic respiratory failure due to acute/chronic HFpEF and acute COPD exacerbation - continue furosemide 40 mg IV q12h; transitioned from CPAP to HFNC yesterday; trend BNP + monitor BMP/Mg. - CT chest without contrast pending. started IV methylprednisolone 11/19. continue nebs. acute blood loss anemia due to LGIB - holding Eliquis. GI consulted. transfuse another 2u pRBCs with furosemide dose after each unit. continue IV PPI + will change SQ octreotide back to IV drip. aspiration pneumonia sepsis due to Enterococcus faecalis bacteremia [positive BCx 10/29, repeat BCx 11/01 and 11/12 negative] - azithro 10/30-11/04, vanco 10/30-10/31, ceftriaxone 10/31-11/01, pip-don 11/01- and again 11/12-, dapto 11/06-11/12 - discussed with ID. Total 21d antibiotics from 11/01, so today is d18 - placed on erythromycin for gastric motility in ICU; d/c'ed - DOPE SPRAYER following; NDD2 solids, nectar liquids pancreatic abnormality - as part of workup of bacteremia, CT abdomen and pelvis was done that showed abrupt change in size of pancreas with atrophy plus ductal dilatation be on pancreatic neck; also extra and intrahepatic biliary dilatation to level of ampulla noted - follow-up MRI obtained to rule out pancreatic mass: no masses but showed changing caliber of pancreatic duct with distal atrophy of pancreatic parenchyma, tortuosity and dilatation of the duct, underlying stricture was not excluded; distended gallbladder with sludge and small stones, common bile duct 1.4 cm without intraductal filling defects, moderate intrahepatic biliary ductal dilatation tjat may represent biliary dyskinesia. - no abdominal pain, normal LFTs; per GI no aggressive invasive procedures as pt asymptomatic - TTE with no vegetation AF/RVR - was difficult to control and got diltiazem IV drip, digoxin IV, and amiodarone PO load. Stable on diltiazem 90 mg qid -> changed to 360 mg CD daily. Continue amiodarone. Currently in sinus tachycardia with abundant PACs - Eliquis on hold - TTE 11/04: LVEF 60-65%, normal right ventricular cavity size and systolic function, no obvious vegetation noted thrombocytopenia - likely due to infection; monitor daily; continues to improve hypoK, 2.8 - repleted acute metabolic encephalopathy due to hypoglycemia - resolved gout - continue allopurinol mood disorder - continue paroxetine DM2 with hyperglycemia - increase correction-dose lispro dosing moderate protein/oscar malnutrition - supplements code - per ICU attending, DNR/DNI, confirmed with pt and her daughter dispo - STR per PT In my clinical judgment, the patient requires continued inpatient hospitalization for the following reasons: HFNC, anemia requiring transfusion Total time managing care of this patient today: 50 minutes. Quality Stroke Does the patient have a stroke diagnosis?: No VTE Prior VTE?: No VTE Risk Level:: Medical - moderate - high VTE Device Contraindication: Treatment Not Indicated VTE Drug Contraindication: N/A - Med Ordered
--- NOTE | 2023-11-21 12:37 | HO.MIDLINE_ITS ---
Midline Insertion MIDLINE INSERTION Diagnosis: poor IV access[] Indication: [blood transfusions and multiple IV infusions] Pertinent Labs: reviewed Technique: Using sterile technique including cap and mask, glove and drape, the left arm was prepped and draped in the usual sterile fashion of full barrier technique with CHG. Using ultrasound guidance, the lef brachial vein access was obtained in a single attempt by GRIS Churchill after 2 attempts by Adelaide Zarco RN . [A 4 romanian 10 cm NON PASV Midline] was positioned. The procedure was performed in . Ultrasound was used to document vein patency and for needle entry. A formal ultrasound picture was recorded. Vascular Area Forester has released the line for use and it is currently dressed with a StatLock, Tegaderm, and CHG disc. Verification has been performed for blood return and line patency. Arm Circumference: 29 cm Equipment: [employer] Medical PowerMidline Catheter Catheter Type: 4 romanian Non PASV Midline Lot #: [id number]
[2023-11-21 12:56] LABS: Glucose, Whole Blood 317 mg/dL (60-115)
--- NOTE | 2023-11-21 12:57 | MHC.SL.SWA ---
Risk of Aspiration Due to: Hx of Recent Extubation Weak Cough Weak Voice Dysphasia Diet Status: NO CHANGE Liquid Consistency and Strategies for Safe Swallow: Liquid Intake Recommendation: Galva Thick Liquid Intake Strategies: Small Sips No Straws Solid Food Consistency: Dietary Recommendations: Grnd/Mech Altered (NDD2) Oral Medication Intake: Crushed with Puree Please contact the pharmacy regarding appropriate crushable or liquid drug formulations that are available whenever modified delivery is recommended. Compensatory Strategies and Precautions to be Taken for Safe Swallow: Sitting Upright (90 deg) Double Swallow Small Bites and Sips Alternate Liquids/Solids Rate of Ingestion Change Oral Check Avoid Specific Foods Supervision While Eating and Drinking for Safe Swallow: Total Supervision (1:1) Foods to Avoid: Mixed textures Swallowing Recommended Treatments: Compens. Strategy Educat. Recommendation for Speech: Inpatient Speech Therapy Comment: Recommend patient continue with GROUND/MECH ALTERED solids (NDD2) and THIN liquids (NO STRAWS). Recommend pills CRUSHED in PUREE when possible, otherwise whole in puree. Patient will need direct supervision during meals and strict aspiration precautions. Patient likely to benefit from MBSS to rule in/out silent aspiration once she is no longer on HFNC. Dungeon Master Clinican/Clinical Fellow: No Supervisory Statement: I have reviewed and agree with the student/clinical fellow's documentation: N/A Speech Language Pathologist: Bhakti Mims M.A., CCC-ARTS AND SCIENCES DEAN
--- NOTE | 2023-11-21 14:08 | MHC.CLN ---
F/U PT IS MODERATELY MALNOURISHED PO INTAKE 25% DIET RX: 2000DM DIET GRD M/S WITH NT LIQ PER EXECUTIVE DIRECTOR PT RECEIVING GELATEIN TID WITH MEALS TO INCREASE PO PROTEIN INTAKE SUPPLEMENT PROVIDES 480KCALS, 60G PROTEIN MONITOR PO INTAKE AND ENCOURAGE SUPPLEMENTS
--- NOTE | 2023-11-21 16:03 | PM.GIPN ---
Subjective Subjective Date of Service: 11/21/23 Interval History: no complaints of abdominal pain burgundy stool per nursing Critical Care Time (minutes): 0 Physical Exam Vital Signs: Vital Signs: Last Vital Signs Temp 97.1 F 11/21/23 15:42 Pulse 110 H 11/21/23 15:45 Resp 20 11/21/23 15:50 BP 113/61 11/21/23 15:42 Pulse Ox 90 L 11/21/23 15:42 O2 Del Method High Flow Nasal C annula 11/21/23 15:42 O2 Flow Rate 45 11/21/23 15:42 FiO2 70 11/21/23 15:42 Oxygen Flow Rate 2 11/10/23 07:30 BMI result Body Mass Index 35.9 GI: Other: abdomen is soft and nontender Objective Data Labs 12/17/23 05:54 12/17/23 05:54 Microbiology Microbiology Results: Microbiology 11/13/23 15:35 Blood - Venous Blood Culture - Final No growth after 5 days. 11/13/23 15:35 Blood - Venous Blood Culture - Final No growth after 5 days. 11/13/23 13:13 Sputum - Suctioned Gram Stain - Final 11/13/23 13:13 Sputum - Suctioned Sputum Culture - Final Corynebacterium species Gram negative deangelo 11/02/23 13:18 Blood - Venous Blood Culture - Final No growth after 5 days. 11/02/23 13:18 Blood - Venous Blood Culture - Final No growth after 5 days. 10/30/23 19:59 Blood - Venous Blood Culture - Final No growth after 5 days. 10/30/23 19:11 Blood - Venous Blood Culture - Final Enterococcus faecalis Procedures Date of Service Date of Service: 01/01/24 Progress Note: A&P Assessment and plan (1) GI bleed: Status: Resolved Assessment and Plan: [place] [facility] [place], receiving 2U prbcs anticoagulation on hold burgundy stool suggests possible lower gi source, but etiology for blood loss not clear. EGD/colon would need to be done with intubation given pulmonary issues. continue ppi, octreotide vitamin k ordered. ct done today, abd/pelvis added on, reading [place] [facility] [place] resume care 11/21 Time Spent With Patient Time: Total time managing care of this patient today ____ minutes. Quality Stroke Does the patient have a stroke diagnosis?: No VTE Prior VTE?: No VTE Risk Level:: Medical - moderate - high VTE Device Contraindication: Treatment Not Indicated VTE Drug Contraindication: N/A - Med Ordered
[2023-11-21 16:25] LABS: Glucose, Whole Blood 386 mg/dL (60-115)
[2023-11-21] MEDS: Pantoprazole Sodium 40 MG/10 ML VIAL IVPUSH (17:03)
[2023-11-21] MEDS: Phytonadione (Vit K1) 10 MG in 0.9 % Sodium Chloride 50 ML 51 MG IV (18:39)
--- NOTE | 2023-11-21 19:08 | PM.EVENT ---
Event Note Date of Service: 11/21/23 Event Note: pt in acute resp distress and desatting to 70s, coarse crackles throughout placed on CPAP then now on biPAP fiO2 100% SaO2 now 96% discussed with pt and her daughter; she is DNR/DNI but OK with NIPPV will start Lasix drip Time Spent With Patient Time: Total time managing care of this patient today ____ minutes.
[2023-11-21] MEDS: Furosemide 200 MG in 0.9 % Sodium Chloride 80 ML IVCONT (19:22)
[2023-11-21 19:37] LABS: Hematocrit 30.2 % (37.0-47.0); Hemoglobin 10.1 g/dl (12.0-16.0)
[2023-11-21 20:51] LABS: Glucose, Whole Blood 275 mg/dL (60-115)
[2023-11-21 20:56] LABS: OBS Int Ctl Valid YES; OBS1 POSITIVE (NEGATIVE)
[2023-11-21] MEDS: Insulin Glargine,Hum.rec.anlog 100 UNIT/ML 10 ML VIAL 18 UNIT SUBCUT (23:01)
[2023-11-22] VITALS (15 sets, daily range): BP systolic 116–140; BP diastolic 58–93; PULSE 58–125; RESP 18–29; TEMP 36.2–36.8; O2SAT 88–95; BMI 34.7
[2023-11-22] MEDS: Piperacillin Sodium/Tazobactam 4.5 GM in 0.9 % Sodium Chloride 100 ML IV ×4 (03:54→20:01)
[2023-11-22] MEDS: Pantoprazole Sodium 40 MG/10 ML VIAL IVPUSH ×2 (05:46→16:33)
[2023-11-22] MEDS: Octreotide Acetate 500 MCG in 0.9 % Sodium Chloride 500 ML 50.1 MCG IVCONT ×2 (06:16→16:32)
[2023-11-22 07:54] LABS: Glucose, Whole Blood 224 mg/dL (60-115)
[2023-11-22] MEDS: Albuterol/Iprat 2.5/0.5MG 3 ML AMPUL.NEB INHALE ×4 (08:23→19:13)
[2023-11-22] MEDS: Fluticasone/Vilanterol 100/25 BLST.W.DEV 1 PUFF INHALE (08:25)
[2023-11-22] MEDS: dilTIAZem HCL CD 180 MG CAP.ER.24H 360 MG PO (09:33)
[2023-11-22] MEDS: Amiodarone HCL 200 MG TABLET PO (09:34)
[2023-11-22] MEDS: Morphine Sulfate 2 MG/ML CARTRIDGE IVPUSH ×3 (09:34→20:20)
[2023-11-22] MEDS: allopurinoL 300 MG TABLET 150 MG PO (09:34)
[2023-11-22] MEDS: PARoxetine HCL 20 MG TABLET PO (09:34)
[2023-11-22] MEDS: Insulin Lispro 100 UNIT/ML 3 ML VIAL SUBCUT ×4 (09:36→20:24)
[2023-11-22] MEDS: methylPREDNISolone Sod Succ 40 MG/ML VIAL IVPUSH ×2 (09:37→20:01)
[2023-11-22] MEDS: Lidocaine 4 % Patch ADH..PATCH 1 PATCH TRANSDERMA (09:37)
[2023-11-22] MEDS: Nystatin Oral Susp 500,000 UNIT/5 ML ORAL.SUSP 500000 UNIT PO ×4 (09:42→20:01)
[2023-11-22] MEDS: guaiFENesin DM 600/30 1 TAB TAB.ER.12H PO ×2 (09:42→20:01)
[2023-11-22] MEDS: Nicotine 14 MG PATCH.TD24 TRANSDERMA (09:58)
--- NOTE | 2023-11-22 10:45 | P.PNIM_ITS ---
Subjective Subjective Date of Service: 11/22/23 Interval History: H+H came up with transfusion was on BiPAP last night, transitioned to CPAP and remained on CPAP all night now back on HFNC; dyspnea improved c/o severe back pain no further GI bleeding Review of Systems Review of Systems: Yes all other systems are reviewed and are negative Physical Exam 2 Vital Signs: Vital Signs: Last Vital Signs Temp 97.1 F 11/22/23 08:00 Pulse 58 11/22/23 08:23 Resp 29 H 11/22/23 08:39 BP 120/68 11/22/23 08:00 Pulse Ox 90 L 11/22/23 08:00 O2 Del Method High Flow Nasal C annula 11/22/23 08:00 O2 Flow Rate 12 11/22/23 05:14 FiO2 50 11/22/23 05:14 Oxygen Flow Rate 2 11/10/23 07:30 BMI result Body Mass Index 34.7 Gen: ill-appearing HEENT: sclera anicteric, moist mucus membranes Neck: supple Lungs: diminished, diffuse inspiratory crackles Heart: irregular, no murmurs Abd: soft, non-tender, non-distended Ext: no edema Skin: warm/well-perfused Neuro: alert and oriented x3, no focal findings Psych: appropriate affect Objective Data Active Medications Acetaminophen (Acetaminophen 325 Mg Tablet) 975 mg PO Q6H PRN PRN Reason: mild pain, headache or fever Last Admin: 11/17/23 05:55 Dose: 975 mg Documented By: HUGO Albuterol Sulfate (Albuterol Sulfate (0.083%) 2.5 Mg/3 Ml Vial.Neb) 2.5 mg INHALE Q2H PRN PRN Reason: Shortness of Breath/Wheezing Last Admin: 11/18/23 07:28 Dose: 2.5 mg Documented By: SORAYA Albuterol/Ipratropium (Albuterol/Iprat 2.5/0.5mg 3 Ml Ampul.Neb) 3 ml INHALE RQ4H WHILE AWAKE PENDING SALE TO [facility] Last Admin: 11/22/23 08:23 Dose: 3 ml Documented By: ADEOLA Allopurinol (Allopurinol 300 Mg Tablet) 150 mg PO DAILY PENDING SALE TO [facility] Last Admin: 11/22/23 09:34 Dose: 150 mg Documented By: ILDA Amiodarone HCl (Amiodarone Hcl 200 Mg Tablet) 200 mg PO DAILY PENDING SALE TO [facility] Last Admin: 11/22/23 09:34 Dose: 200 mg Documented By: ILDA Apixaban (Apixaban 5 Mg Tablet) 5 mg PO BID PENDING SALE TO [facility] Last Admin: 11/17/23 08:53 Dose: 5 mg Documented By: MONFERICO Diltiazem HCl (Diltiazem Hcl Cd 180 Mg Cap.Er.24h) 360 mg PO DAILY PENDING SALE TO [facility]; Protocol Last Admin: 11/22/23 09:33 Dose: 360 mg Documented By: ILDA Docusate Sodium (Docusate Sodium 100 Mg Capsule) 100 mg PO BID PRN PRN Reason: constipation Fluticasone/Vilanterol (Fluticasone/Vilanterol 100/25 Blst.W.Dev) 1 puff INHALE RDAILY PENDING SALE TO [facility] Last Admin: 11/22/23 08:25 Dose: 1 puff Documented By: SORAYA Glucose (Glucose Gel 15 Gm Gel..Gram.) 15 gm PO Q15M PRN; Protocol PRN Reason: per Hypoglycemia Standing Ord. Guaifenesin/Dextromethorphan (Guaifenesin Dm 600/30 1 Tab Tab.Er.12h) 1 tab PO BID PENDING SALE TO [facility] Last Admin: 11/22/23 09:42 Dose: 1 tab Documented By: ILDA Piperacillin Sod/Tazobactam (Sod 4.5 gm/ Sodium Chloride) 100 mls @ 200 mls/hr IV Q6H PENDING SALE TO [facility] Last Infusion: 11/22/23 10:12 Dose: Infused Documented By: ILDA Octreotide Acetate 500 mcg/ (Sodium Chloride) 501 mls @ 50.1 mls/hr IVCONT .Q10H PENDING SALE TO [facility] Last Admin: 11/22/23 06:16 Dose: 50 mcg/hr, 50.1 mls/hr Documented By: LAFLAMLea Furosemide 200 mg/ Sodium (Chloride) 100 mls @ 2.5 mls/hr IVCONT .Q24H PENDING SALE TO [facility] Last Admin: 11/21/23 19:22 Dose: 5 mg/hr, 2.5 mls/hr Documented By: RONALD Insulin Glargine (Insulin Glargine,Hum.Rec.Anlog 100 Unit/Ml 10 Ml Vial) 18 unit SUBCUT BEDTIME PENDING SALE TO [facility] Last Admin: 11/21/23 23:01 Dose: 18 unit Documented By: MELVIN Insulin Human Lispro (Insulin Lispro 100 Unit/Ml 3 Ml Vial) 0 unit SUBCUT QIDACHS PENDING SALE TO [facility]; Protocol Last Admin: 11/22/23 09:36 Dose: 7 unit Documented By: ILDA Lidocaine (Lidocaine 4 % Patch Adh..Patch) 1 patch TRANSDERMA DAILY PENDING SALE TO [facility]; Protocol Last Admin: 11/22/23 09:37 Dose: 1 patch Documented By: ILDA Methylprednisolone Sodium Succinate (Methylprednisolone Sod Succ 40 Mg/Ml Vial) 40 mg IVPUSH Q12H PENDING SALE TO [facility] Last Admin: 11/22/23 09:37 Dose: 40 mg Documented By: ILDA Morphine Sulfate (Morphine Sulfate 2 Mg/Ml Cartridge) 2 mg IVPUSH Q2H PRN; Protocol PRN Reason: Pain, Severe (Pain Scale 7-10) Last Admin: 11/22/23 09:34 Dose: 2 mg Documented By: ILDA Nicotine (Nicotine 14 Mg Patch.Td24) 14 mg TRANSDERMA DAILY PENDING SALE TO [facility] Last Admin: 11/22/23 09:58 Dose: 14 mg Documented By: IDLA Nystatin (Nystatin Oral Susp 500,000 Unit/5 Ml Oral.Susp) 500,000 unit PO QID PENDING SALE TO [facility]; Protocol Last Admin: 11/22/23 09:42 Dose: 500,000 unit Documented By: ILDA Ondansetron HCl (Ondansetron Hcl 4 Mg/2 Ml Vial) 4 mg IVPUSH Q8H PRN PRN Reason: Nausea and Vomiting Last Admin: 11/12/23 20:05 Dose: 4 mg Documented By: BRAD Oxycodone HCl (Oxycodone Hcl Immed Release 5 Mg Tablet) 5 mg PO Q4H PRN PRN Reason: Pain, Severe (Pain Scale 7-10) Pantoprazole Sodium (Pantoprazole Sodium 40 Mg/10 Ml Vial) 40 mg IVPUSH BID@0630,1630 PENDING SALE TO [facility] Last Admin: 11/22/23 05:46 Dose: 40 mg Documented By: MELVIN Paroxetine HCl (Paroxetine Hcl 20 Mg Tablet) 20 mg PO DAILY@0900 PENDING SALE TO [facility] Last Admin: 11/22/23 09:34 Dose: 20 mg Documented By: ILDA Sodium Chloride (0.9 % Sodium Chloride Flush 3 Ml Syringe) 3 ml IVFLUSH QSHIFT PENDING SALE TO [facility] Last Admin: 11/22/23 09:51 Dose: Not Given Documented By: ILDA Non-Admin Reason: iv fluids running Labs 11/21/23 19:30 11/21/23 06:03 Labs: Laboratory Results - last 24 hr 11/21/23 11/21/23 11/21/23 08:41 08:41 12:52 POC Glucose 317 H Stool Occult Blood Blood Type A Negative Antibody Screen POSITIVE Antibody Identification Anti-C Anti-D Crossmatch (AHG) See Detail 11/21/23 11/21/23 11/21/23 16:21 20:00 20:47 POC Glucose 386 H* 275 H Stool Occult Blood POSITIVE Blood Type Antibody Screen Antibody Identification Crossmatch (AHG) 11/22/23 07:50 POC Glucose 224 H Stool Occult Blood Blood Type Antibody Screen Antibody Identification Crossmatch (AHG) Assessment and Plan (1) Aspiration pneumonia: Status: Acute Plan d23 78yo F with pAF on apixaban, COPD not on hO2, gout, HF with unknown EF, and DM2 presented with AMS, admitted for hypoxia due to CAP + COPD developed worsening hypoxia due to aspiration and intubated on 11/13/23 extubated 11/14/23 and stepped down to telemetry 11/15/23 acute hypoxic respiratory failure due to acute/chronic HFpEF and acute COPD exacerbation - placed on furosemide IV gtt 11/20. continue HFNC/CPAP as necessary. Labs from this AM pending: BNP, BMP, magnesium - started IV methylprednisolone 11/19. continue nebs. resp pathogen panel ordered acute blood loss anemia due to LGIB - holding Eliquis. GI consulted. Transfused 2 units yesterday with good response in H+H. Continue IV PPI + octreotide IV gtt. Given vitamin K yesterday aspiration pneumonia sepsis due to Enterococcus faecalis bacteremia [positive BCx 10/29, repeat BCx 11/01 and 11/12 negative] - azithro 10/30-11/04, vanco 10/30-10/31, ceftriaxone 10/31-11/01, pip-don 11/01- and again 11/12-, dapto 11/06-11/12 - discussed with ID. Total 21d antibiotics from 11/01, so today is d19 - placed on erythromycin for gastric motility in ICU; d/c'ed - [employer] EMBR[employer] DIGIT[employer]ER following; NDD2 solids, nectar liquids pancreatic abnormality - as part of workup of bacteremia, CT abdomen and pelvis was done that showed abrupt change in size of pancreas with atrophy plus ductal dilatation be on pancreatic neck; also extra and intrahepatic biliary dilatation to level of ampulla noted - follow-up MRI obtained to rule out pancreatic mass: no masses but showed changing caliber of pancreatic duct with distal atrophy of pancreatic parenchyma, tortuosity and dilatation of the duct, underlying stricture was not excluded; distended gallbladder with sludge and small stones, common bile duct 1.4 cm without intraductal filling defects, moderate intrahepatic biliary ductal dilatation tjat may represent biliary dyskinesia. - no abdominal pain, normal LFTs; per GI no aggressive invasive procedures as pt asymptomatic - TTE with no vegetation AF/RVR - was difficult to control and got diltiazem IV drip, digoxin IV, and amiodarone PO load. Stable on diltiazem 90 mg qid -> changed to 360 mg CD daily. Continue amiodarone. Currently in sinus rhythm with abundant PACs - Eliquis on hold as above - TTE 11/04: LVEF 60-65%, normal right ventricular cavity size and systolic function, no obvious vegetation noted thrombocytopenia - likely due to infection; monitor daily; continues to improve hypoK, 2.8 - repleted acute metabolic encephalopathy due to hypoglycemia - resolved gout - continue allopurinol mood disorder - continue paroxetine DM2 with hyperglycemia - increase correction-dose lispro and glargine moderate protein/oscar malnutrition - supplements code - per ICU attending, DNR/DNI, confirmed with pt and her daughter and reaffirmed 11/20 dispo - STR per PT In my clinical judgment, the patient requires continued inpatient hospitalization for the following reasons: [facility] Total time managing care of this patient today: 50 minutes. Quality Stroke Does the patient have a stroke diagnosis?: No VTE Prior VTE?: No VTE Risk Level:: Medical - moderate - high VTE Device Contraindication: Treatment Not Indicated VTE Drug Contraindication: N/A - Med Ordered
[2023-11-22 11:42] LABS: Glucose, Whole Blood 364 mg/dL (60-115)
--- NOTE | 2023-11-22 11:44 | PC.NURSE ---
on November 15, 2023 at 1627 patient received PRN Ketorlac for 10/10 back pain patient requested this PRN medication be administered.
[2023-11-22 11:59] LABS: Renin 13.58 ng/mL/h (0.25-5.82)
[2023-11-22 13:09] LABS: Venous Blood Gas Refer to POC result
[2023-11-22 13:20] LABS: INTERNATIONAL NORM RATIO 1.1 (0.9-1.1); Prothrombin Time 13.8 SEC (11.1-13.3)
--- NOTE | 2023-11-22 13:21 | MHC.SL.SWA ---
Speech Pathologist Impression: Risk of Aspiration Due to: Hx of Recent Extubation Weak Cough Weak Voice Dysphasia Diet Status: Recommend patient continue with GROUND/MECH ALTERED solids (NDD2) and THIN liquids (NO STRAWS). Recommend pills CRUSHED in PUREE when possible, otherwise whole in puree. Patient will need direct supervision during meals and strict aspiration precautions. Liquid Consistency and Strategies for Safe Swallow: Liquid Intake Recommendation: [place] Thick Liquid Intake Strategies: Small Sips No Straws Solid Food Consistency: Dietary Recommendations: Grnd/Mech Altered (NDD2) Additional Modifications to Solid Foods: Patient will need direct supervision during meals and strict aspiration precautions. Oral Medication Intake: Crushed with Puree Please contact the pharmacy regarding appropriate crushable or liquid drug formulations that are available whenever modified delivery is recommended. Compensatory Strategies and Precautions to be Taken for Safe Swallow: Sitting Upright (90 deg) Double Swallow Small Bites and Sips Alternate Liquids/Solids Rate of Ingestion Change Oral Check Avoid Specific Foods Supervision While Eating and Drinking for Safe Swallow: Total Supervision (1:1) Foods to Avoid: Mixed textures Swallowing Recommended Treatments: Compens. Strategy Educat. Recommendation for Speech: Inpatient Speech Therapy Comment: Ellen was observed at her lunch meal. At onset, she was taking a oxygen break and breathing deeply with the HFNC in place, and initially appeared to decline being seen. However, she then requested some assistance with getting creamers for her coffee which the ACQUISITION ASSOCIATE did. Patient was observed taking bites of ground food (ground chicken) with a somewhat slow but consistent mastication pattern, mildly reduced laryngeal elevation noted on swallow. Patient was observed taking sips of nectar thick coffee which she tolerated well. Recommend continue on current diet consistencies at this time (no change): Ground mechanical Altered (NDD2) with NECTAR THICK liquids, pills crushed in puree. Frequency/Duration: M-F Date Range for Service Req: Timeline to reassess: Machine Marker Clinican/Clinical Fellow: No Supervisory Statement: I have reviewed and agree with the student/clinical fellow's documentation: N/A Speech Language Pathologist: Davida Corcoran M.A., CCC-ACQUISITION ASSOCIATE
[2023-11-22 13:22] LABS: Hematocrit 29.5 % (37.0-47.0); Hemoglobin 9.9 g/dl (12.0-16.0); Mean Corpuscular HGB Conc 33.6 g/dl (31.0-35.0); Mean Corpuscular Hemoglobin 29.6 pg (27.0-33.0); Mean Corpuscular Volume 88.1 fL (80.0-98.0); NRBC Pct Auto 0.5 /100WBC (0.0-0.2); Platelet Count 158 X10*3/uL (160-400); Red Blood Count 3.35 X10*6/uL (4.20-5.50); Red Cell Distribution Width 17.9 % (11.0-16.0); White Blood Count 6.5 X10*3/uL (4.8-10.8)
[2023-11-22 13:23] LABS: VBG Base Excess 21.5 mmol/L; VBG HCO3 45 mmol/L (22-26); VBG pCO2 45 mmHg; VBG pO2 37 mmHg
[2023-11-22 13:41] LABS: Adenovirus PCR Not Detected (Not Detect.); Bordetella parapertussis PCR Not Detected (Not Detect.); Bordetella pertussis PCR Not Detected (Not Detect.); Chlamydia pneumoniae PCR Not Detected (Not Detect.); Coronavirus 229E PCR Not Detected (Not Detect.); Coronavirus HKU1 PCR Not Detected (Not Detect.); Coronavirus NL63 PCR Not Detected (Not Detect.); Coronavirus OC43 PCR Not Detected (Not Detect.); Human metapneumovirus PCR Not Detected (Not Detect.); Influenza A PCR Not Detected (Not Detect.); Influenza B PCR Not Detected (Not Detect.); Mycoplasma pneumoniae PCR Not Detected (Not Detect.); Parainfluenza 1 PCR Not Detected (Not Detect.); Parainfluenza 2 PCR Not Detected (Not Detect.); Parainfluenza 3 PCR Not Detected (Not Detect.); Parainfluenza 4 PCR Not Detected (Not Detect.); RSV PCR Not Detected (Not Detect.); Rhino/Enterovirus PCR Not Detected (Not Detect.)
[2023-11-22 13:41] LABS: B Type Natriuretic Peptide 147 pg/mL (<100)
[2023-11-22 13:42] LABS: Fibrinogen > 700 MG/DL (259-690)
[2023-11-22 13:59] LABS: Procalcitonin 0.37 ng/mL
[2023-11-22 14:01] LABS: SARS-CoV-2 PCR Not Detected (Not Detect.)
[2023-11-22 14:04] LABS: Alanine Aminotransferase 13 U/L (0-31); Albumin Level 2.8 g/dL (3.5-5.0); Alkaline Phosphatase 117 U/L (39-117); Anion Gap 13 (12-20); Aspartate Amino Transferase 15 U/L (5-31); Bilirubin Total 0.8 mg/dL (0.0-1.0); Blood Urea Nitrogen 18 mg/dL (9-16); Calcium 8.1 mg/dL (8.4-10.2); Carbon Dioxide 37 mmol/L (22-29); Chloride 92 mmol/L (96-108); Creatinine Clr Calc Pharmacy 53.8; Estimated Glomerular Filt Rate 58; Sodium 140 mmol/L (135-145); Total Protein 5.8 g/dL (6.5-8.0)
[2023-11-22 14:10] LABS: Glucose Random 450 mg/dL (60-115); Magnesium 1.4 mg/dL (1.6-2.6); Potassium 2.2 mmol/L (3.3-5.1)
[2023-11-22 14:22] LABS: Glucose, Whole Blood 332 mg/dL (60-115)
[2023-11-22] MEDS: Magnesium Sulfate/H2O 2 GM/50 ML PIGGYBACK IV (14:45)
[2023-11-22] MEDS: Potassium Chloride/H20 10 MEQ/100 ML PIGGYBACK 100 MEQ IV ×4 (14:47→18:07)
[2023-11-22 16:16] LABS: Glucose, Whole Blood 195 mg/dL (60-115)
[2023-11-22] MEDS: 0.9 % Sodium Chloride Flush 3 ML SYRINGE IVFLUSH (16:34)
--- NOTE | 2023-11-22 16:53 | P.EN_ITS ---
Event Note Date of Service: 11/22/23 Event Note: 78 YF with pAF on apixaban, COPD not on hO2, gout, HF with unknown EF, and DM2 presented to [facility] [place] with AMS, admitted for hypoxia due to CAP + COPD developed worsening hypoxia due to aspiration and intubated on 11/13/23 extubated 11/14/23 and stepped down to telemetry 11/15/23. Gastroenterology consulted for GIB yest leading to acute on chronic anemia. RN reports possibly burgundy BMs yest. None today so far. Patient was transfused 2 units of packed RBCs yesterday and H & H improved to 10.1 & 30.2 . Follow-up H and H anticoagulation on hold Pt evaluated at bedside. Able to answer questions and stated she would like to be left alone. 11/21/[address] SCAN SHOWED: 1. Rectosigmoid wall thickening is suspected, with note made that imaging is limited by noncontrast technique and pelvic metallic streak artifact. Please clinically clinically. No obstruction, free intraperitoneal air or abscess is seen. No appendicitis or diverticulitis is seen. There is no significant colonic diverticulosis. 2. There is layering milk of calcium within the gallbladder, without finding to suggest acute cholecystitis. No choledocholithiasis is noted. There is mild intrahepatic biliary ductal dilatation. The common bile duct is again dilated, and there is mild proximal pancreatic ductal dilatation. Again, an occult pancreatic lesion is not excluded, with present evaluation limited by noncontrast technique. 3. No urinary calculus or obstruction is seen. 4. There is no abdominopelvic free fluid or lymphadenopathy. RECOMMENDATIONS: Continue conservative managament with ppi, octreotide Pt is high risk for anesthesia and she declined endoscopic evaluation Time Spent With Patient Time: Total time managing care of this patient today ____ minutes.
[2023-11-22] MEDS: Furosemide 200 MG in 0.9 % Sodium Chloride 80 ML IVCONT (18:33)
--- NOTE | 2023-11-22 19:03 | PC.NURSE ---
Patient had labs that needed to be drawn this morning. Patient is identified as being a very hard stick.Phlebotomy staff attempted to drawn labs X5, and were unsuccessful each time. Provider made aware of patient being hard stick and not being able to have labs drawn. gave order for nurses to obtain labs via Midline. Labs obtained and midline flushed per facility protocol.
[2023-11-22 20:03] LABS: Glucose, Whole Blood 335 mg/dL (60-115)
[2023-11-22] MEDS: Insulin Glargine,Hum.rec.anlog 100 UNIT/ML 10 ML VIAL 20 UNIT SUBCUT (20:24)
[2023-11-23] VITALS (16 sets, daily range): BP systolic 101–147; BP diastolic 50–72; PULSE 94–118; RESP 16–24; TEMP 36–36.4; O2SAT 89–98; BMI 34.8
[2023-11-23] MEDS: Octreotide Acetate 500 MCG in 0.9 % Sodium Chloride 500 ML 50.1 MCG IVCONT (02:04)
[2023-11-23] MEDS: Piperacillin Sodium/Tazobactam 4.5 GM in 0.9 % Sodium Chloride 100 ML IV ×2 (02:05→08:34)
[2023-11-23] MEDS: Morphine Sulfate 2 MG/ML CARTRIDGE IVPUSH ×4 (02:08→20:35)
[2023-11-23] MEDS: Pantoprazole Sodium 40 MG/10 ML VIAL IVPUSH ×2 (05:50→17:10)
[2023-11-23 07:34] LABS: Glucose, Whole Blood 284 mg/dL (60-115)
[2023-11-23] MEDS: Albuterol/Iprat 2.5/0.5MG 3 ML AMPUL.NEB INHALE ×4 (07:46→20:04)
[2023-11-23] MEDS: Fluticasone/Vilanterol 100/25 BLST.W.DEV 1 PUFF INHALE (07:46)
[2023-11-23 08:16] LABS: Hematocrit 30.7 % (37.0-47.0); Hemoglobin 10.1 g/dl (12.0-16.0); Mean Corpuscular HGB Conc 32.9 g/dl (31.0-35.0); Mean Corpuscular Hemoglobin 29.5 pg (27.0-33.0); Mean Corpuscular Volume 89.8 fL (80.0-98.0); Mean Platelet Volume 11.1 fL (9.4-12.3); NRBC Pct Auto 0.7 /100WBC (0.0-0.2); Platelet Count 182 X10*3/uL (160-400); Red Blood Count 3.42 X10*6/uL (4.20-5.50); Red Cell Distribution Width 17.6 % (11.0-16.0); White Blood Count 4.5 X10*3/uL (4.8-10.8)
[2023-11-23] MEDS: Insulin Lispro 100 UNIT/ML 3 ML VIAL SUBCUT ×4 (08:23→21:37)
[2023-11-23] MEDS: dilTIAZem HCL CD 180 MG CAP.ER.24H 360 MG PO (08:24)
[2023-11-23] MEDS: guaiFENesin DM 600/30 1 TAB TAB.ER.12H PO ×2 (08:25→20:39)
[2023-11-23] MEDS: Amiodarone HCL 200 MG TABLET PO (08:25)
[2023-11-23] MEDS: allopurinoL 300 MG TABLET 150 MG PO (08:25)
[2023-11-23] MEDS: Nicotine 14 MG PATCH.TD24 TRANSDERMA (08:25)
[2023-11-23] MEDS: PARoxetine HCL 20 MG TABLET PO (08:25)
[2023-11-23] MEDS: methylPREDNISolone Sod Succ 40 MG/ML VIAL IVPUSH ×2 (08:26→20:38)
[2023-11-23] MEDS: Lidocaine 4 % Patch ADH..PATCH 1 PATCH TRANSDERMA (08:26)
[2023-11-23] MEDS: 0.9 % Sodium Chloride Flush 3 ML SYRINGE IVFLUSH ×3 (08:31→20:41)
[2023-11-23 08:33] LABS: B Type Natriuretic Peptide 115 pg/mL (<100)
[2023-11-23] MEDS: Nystatin Oral Susp 500,000 UNIT/5 ML ORAL.SUSP 500000 UNIT PO ×4 (08:41→20:40)
[2023-11-23 08:54] LABS: Anion Gap 14 (12-20); Blood Urea Nitrogen 16 mg/dL (9-16); Calcium 8.5 mg/dL (8.4-10.2); Carbon Dioxide 45 mmol/L (22-29); Chloride 88 mmol/L (96-108); Creatinine Clr Calc Pharmacy 61.9; Estimated Glomerular Filt Rate > 60; Glucose Random 303 mg/dL (60-115); Magnesium 1.8 mg/dL (1.6-2.6); Potassium 2.3 mmol/L (3.3-5.1); Sodium 145 mmol/L (135-145)
--- NOTE | 2023-11-23 09:28 | MHC.CM.PN ---
EMR REVIEWED, PT REMAINS ON HI-FLOW NC O2, NO PLAN FOR DC AT THIS TIME, AANTIC PT WILL NEED STR ONCE MEDICALLY CLEARED, CM WILL CONT TO FOLLOW DC NEEDS.
[2023-11-23] MEDS: Potassium Chloride Packet 20 MEQ PACKET 40 MEQ PO ×2 (09:54→18:21)
[2023-11-23] MEDS: Potassium Chloride/H20 10 MEQ/100 ML PIGGYBACK 100 MEQ IV ×4 (09:59→13:17)
--- NOTE | 2023-11-23 10:53 | P.PNIM_ITS ---
Subjective Subjective Date of Service: 11/23/23 Interval History: on CPAP overnight, now on HFNC feeling less short of breath copious diuresis no chest pain back pain improved no further GI bleeding Review of Systems Review of Systems: Yes all other systems are reviewed and are negative Physical Exam 2 Vital Signs: Vital Signs: Last Vital Signs Temp 97.5 F 11/23/23 03:24 Pulse 118 H 11/23/23 08:48 Resp 24 H 11/23/23 07:57 BP 120/65 11/23/23 08:48 Pulse Ox 91 L 11/23/23 08:48 O2 Del Method High Flow Nasal C annula 11/23/23 08:48 O2 Flow Rate 45 11/22/23 19:18 FiO2 65 11/22/23 19:18 Oxygen Flow Rate 2 11/10/23 07:30 BMI result Body Mass Index 34.8 Gen: NAD HEENT: sclera anicteric, moist mucus membranes Neck: supple Lungs: diminished Heart: irregular, rapid, no murmurs Abd: soft, non-tender, non-distended Ext: no edema, LUE PICC Skin: warm/well-perfused, extensive bruising Neuro: alert and oriented x3, no focal findings Psych: appropriate affect Objective Data Active Medications Acetaminophen (Acetaminophen 325 Mg Tablet) 975 mg PO Q6H PRN PRN Reason: mild pain, headache or fever Last Admin: 11/17/23 05:55 Dose: 975 mg Documented By: HUGO Albuterol Sulfate (Albuterol Sulfate (0.083%) 2.5 Mg/3 Ml Vial.Neb) 2.5 mg INHALE Q2H PRN PRN Reason: Shortness of Breath/Wheezing Last Admin: 11/18/23 07:28 Dose: 2.5 mg Documented By: SORAYA Albuterol/Ipratropium (Albuterol/Iprat 2.5/0.5mg 3 Ml Ampul.Neb) 3 ml INHALE RQ4H WHILE AWAKE [facility] Last Admin: 11/23/23 07:46 Dose: 3 ml Documented By: SORAYA Allopurinol (Allopurinol 300 Mg Tablet) 150 mg PO DAILY [facility] Last Admin: 11/23/23 08:25 Dose: 150 mg Documented By: ILDA Amiodarone HCl (Amiodarone Hcl 200 Mg Tablet) 200 mg PO DAILY [facility] Last Admin: 11/23/23 08:25 Dose: 200 mg Documented By: ILDA Apixaban (Apixaban 5 Mg Tablet) 5 mg PO BID [facility] Last Admin: 11/17/23 08:53 Dose: 5 mg Documented By: MONFERICO Diltiazem HCl (Diltiazem Hcl Cd 240 Mg Cap.Er.Deg) 480 mg PO DAILY [facility]; Protocol Docusate Sodium (Docusate Sodium 100 Mg Capsule) 100 mg PO BID PRN PRN Reason: constipation Fluticasone/Vilanterol (Fluticasone/Vilanterol 100/25 Blst.W.Dev) 1 puff INHALE RDAILY [facility] Last Admin: 11/23/23 07:46 Dose: 1 puff Documented By: SORAYA Furosemide (Furosemide 40 Mg Tablet) 40 mg PO BID@0900,1800 [facility]; Protocol Glucose (Glucose Gel 15 Gm Gel..Gram.) 15 gm PO Q15M PRN; Protocol PRN Reason: per Hypoglycemia Standing Ord. Guaifenesin/Dextromethorphan (Guaifenesin Dm 600/30 1 Tab Tab.Er.12h) 1 tab PO BID [facility] Last Admin: 11/23/23 08:25 Dose: 1 tab Documented By: ILDA Potassium Chloride (Potassium Chloride/H20) 10 meq in 100 mls @ 100 mls/hr IV Q1H [facility] Stop: 11/23/23 13:29 Last Admin: 11/23/23 09:59 Dose: 100 mls/hr Documented By: ILDA Insulin Glargine (Insulin Glargine,Hum.Rec.Anlog 100 Unit/Ml 10 Ml Vial) 24 unit SUBCUT BEDTIME [facility] Insulin Human Lispro (Insulin Lispro 100 Unit/Ml 3 Ml Vial) 0 unit SUBCUT QIDACHS [facility]; Protocol Last Admin: 11/23/23 08:23 Dose: 10 unit Documented By: ILDA Lidocaine (Lidocaine 4 % Patch Adh..Patch) 1 patch TRANSDERMA DAILY [facility]; Protocol Last Admin: 11/23/23 08:26 Dose: 1 patch Documented By: ILDA Methylprednisolone Sodium Succinate (Methylprednisolone Sod Succ 40 Mg/Ml Vial) 40 mg IVPUSH Q12H [facility] Last Admin: 11/23/23 08:26 Dose: 40 mg Documented By: ILDA Morphine Sulfate (Morphine Sulfate 2 Mg/Ml Cartridge) 2 mg IVPUSH Q2H PRN; Protocol PRN Reason: Pain, Severe (Pain Scale 7-10) Last Admin: 11/23/23 08:30 Dose: 2 mg Documented By: ILDA Nicotine (Nicotine 14 Mg Patch.Td24) 14 mg TRANSDERMA DAILY [facility] Last Admin: 11/23/23 08:25 Dose: 14 mg Documented By: ILDA Nystatin (Nystatin Oral Susp 500,000 Unit/5 Ml Oral.Susp) 500,000 unit PO QID [facility]; Protocol Last Admin: 11/23/23 08:41 Dose: 500,000 unit Documented By: ILDA Ondansetron HCl (Ondansetron Hcl 4 Mg/2 Ml Vial) 4 mg IVPUSH Q8H PRN PRN Reason: Nausea and Vomiting Last Admin: 11/12/23 20:05 Dose: 4 mg Documented By: BRAD Oxycodone HCl (Oxycodone Hcl Immed Release 5 Mg Tablet) 5 mg PO Q4H PRN PRN Reason: Pain, Severe (Pain Scale 7-10) Pantoprazole Sodium (Pantoprazole Sodium 40 Mg/10 Ml Vial) 40 mg IVPUSH BID@0630,1630 [facility] Last Admin: 11/23/23 05:50 Dose: 40 mg Documented By: ALEXANDRIA Paroxetine HCl (Paroxetine Hcl 20 Mg Tablet) 20 mg PO DAILY@0900 [facility] Last Admin: 11/23/23 08:25 Dose: 20 mg Documented By: ILDA Potassium Chloride (Potassium Chloride Packet 20 Meq Packet) 40 meq PO BID [facility] Stop: 11/24/23 09:01 Last Admin: 11/23/23 09:54 Dose: 40 meq Documented By: ILDA Sodium Chloride (0.9 % Sodium Chloride Flush 3 Ml Syringe) 3 ml IVFLUSH QSHIFT [facility] Last Admin: 11/23/23 08:31 Dose: 3 ml Documented By: ILDA Labs 11/23/23 07:52 11/23/23 07:52 Labs: Laboratory Results - last 24 hr 11/10/23 11/22/23 11/22/23 23:38 11:15 11:34 MCV MCH MCHC RDW Plt Count MPV Absolute Nucleated RBC Nucleated RBC % (auto) PT INR Fibrinogen VBG pH VBG pCO2 VBG pO2 VBG HCO3 VBG O2 Saturation VBG Base Excess Anion Gap Estim Creat Clear Calc Estimated GFR POC Glucose 364 H* Random Glucose Calcium Magnesium Total Bilirubin AST ALT Alkaline Phosphatase B-Natriuretic Peptide Total Protein Albumin Renin 13.58 H Procalcitonin Respiratory Panel [place] See Note Adenovirus (Rapid PCR) Not Detected B.pert (TEM-PCR) Not Detected B.parapertussis DNA PCR Not Detected C. pneumoniae DNA (PCR) Not Detected Coronavirus OC43 (PCR) Not Detected Coronavirus HKU1 (PCR) Not Detected Coronavirus 229E (PCR) Not Detected Coronavirus NL63 (PCR) Not Detected Human Metapneumovir PCR Not Detected Influenza A (RT-PCR) Not Detected Influenza B (RT-PCR) Not Detected M. pneumoniae (PCR) Not Detected Parainfluenza 1 (PCR) Not Detected Parainfluenza 2 (PCR) Not Detected Parainfluenza 3 (PCR) Not Detected Parainfluenza 4 (PCR) Not Detected RSV (PCR) Not Detected Entero/Rhino (PCR) Not Detected SARS-CoV-2 RNA (RT-PCR) Not Detected 11/22/23 11/22/23 11/22/23 13:02 13:05 14:14 MCV 88.1 D MCH 29.6 MCHC 33.6 RDW 17.9 H Plt Count 158 L D MPV 11.0 Absolute Nucleated RBC 0.030 H Nucleated RBC % (auto) 0.5 H PT 13.8 H INR 1.1 Fibrinogen > 700 H VBG pH 7.60 H* VBG pCO2 45 VBG pO2 37 VBG HCO3 45 H VBG O2 Saturation 65.0 VBG Base Excess 21.5 Anion Gap 13 Estim Creat Clear Calc 53.8 Estimated GFR 58 POC Glucose 332 H Random Glucose 450 H* Calcium 8.1 L D Magnesium 1.4 L* Total Bilirubin 0.8 AST 15 ALT 13 Alkaline Phosphatase 117 B-Natriuretic Peptide 147 H Total Protein 5.8 L Albumin 2.8 L Renin Procalcitonin 0.37 Respiratory Panel [place] Adenovirus (Rapid PCR) B.pert (TEM-PCR) B.parapertussis DNA PCR C. pneumoniae DNA (PCR) Coronavirus OC43 (PCR) Coronavirus HKU1 (PCR) Coronavirus 229E (PCR) Coronavirus NL63 (PCR) Human Metapneumovir PCR Influenza A (RT-PCR) Influenza B (RT-PCR) M. pneumoniae (PCR) Parainfluenza 1 (PCR) Parainfluenza 2 (PCR) Parainfluenza 3 (PCR) Parainfluenza 4 (PCR) RSV (PCR) Entero/Rhino (PCR) SARS-CoV-2 RNA (RT-PCR) 11/22/23 11/22/23 11/23/23 16:06 19:58 07:23 MCV MCH MCHC RDW Plt Count MPV Absolute Nucleated RBC Nucleated RBC % (auto) PT INR Fibrinogen VBG pH VBG pCO2 VBG pO2 VBG HCO3 VBG O2 Saturation VBG Base Excess Anion Gap Estim Creat Clear Calc Estimated GFR POC Glucose 195 H 335 H 284 H Random Glucose Calcium Magnesium Total Bilirubin AST ALT Alkaline Phosphatase B-Natriuretic Peptide Total Protein Albumin Renin Procalcitonin Respiratory Panel [place] Adenovirus (Rapid PCR) B.pert (TEM-PCR) B.parapertussis DNA PCR C. pneumoniae DNA (PCR) Coronavirus OC43 (PCR) Coronavirus HKU1 (PCR) Coronavirus 229E (PCR) Coronavirus NL63 (PCR) Human Metapneumovir PCR Influenza A (RT-PCR) Influenza B (RT-PCR) M. pneumoniae (PCR) Parainfluenza 1 (PCR) Parainfluenza 2 (PCR) Parainfluenza 3 (PCR) Parainfluenza 4 (PCR) RSV (PCR) Entero/Rhino (PCR) SARS-CoV-2 RNA (RT-PCR) 11/23/23 07:52 MCV 89.8 MCH 29.5 MCHC 32.9 RDW 17.6 H Plt Count 182 MPV 11.1 Absolute Nucleated RBC 0.030 H Nucleated RBC % (auto) 0.7 H PT INR Fibrinogen VBG pH VBG pCO2 VBG pO2 VBG HCO3 VBG O2 Saturation VBG Base Excess Anion Gap 14 Estim Creat Clear Calc 61.9 Estimated GFR > 60 POC Glucose Random Glucose 303 H Calcium 8.5 Magnesium 1.8 Total Bilirubin AST ALT Alkaline Phosphatase B-Natriuretic Peptide 115 H Total Protein Albumin Renin Procalcitonin Respiratory Panel [place] Adenovirus (Rapid PCR) B.pert (TEM-PCR) B.parapertussis DNA PCR C. pneumoniae DNA (PCR) Coronavirus OC43 (PCR) Coronavirus HKU1 (PCR) Coronavirus 229E (PCR) Coronavirus NL63 (PCR) Human Metapneumovir PCR Influenza A (RT-PCR) Influenza B (RT-PCR) M. pneumoniae (PCR) Parainfluenza 1 (PCR) Parainfluenza 2 (PCR) Parainfluenza 3 (PCR) Parainfluenza 4 (PCR) RSV (PCR) Entero/Rhino (PCR) SARS-CoV-2 RNA (RT-PCR) Assessment and Plan (1) Aspiration pneumonia: Status: Acute Plan d25 78yo F with pAF on apixaban, COPD not on hO2, gout, HF with unknown EF, and DM2 presented with AMS, admitted for hypoxia due to CAP + COPD developed worsening hypoxia due to aspiration and intubated on 11/13/23 extubated 11/14/23 and stepped down to telemetry 11/15/23 severe hypoK - replete PO/IV, recheck level in AM acute hypoxic respiratory failure due to acute/chronic HFpEF and acute COPD exacerbation - has developed contraction alkalosis and severe hypoK; change IV furosemide gtt [started 11/20] to PO furosemide - continue HFNC/CPAP as necessary. currently on 45 LPM + 75% fiO2 - started IV methylprednisolone 11/19. continue nebs. resp pathogen panel negative acute blood loss anemia due to LGIB - holding Eliquis. GI consulted. Transfused 2 units 11/21 with good response in H+H; also got vit K. H+H now stable. Continue IV PPI. No bleeding in 72h; stop octreotide. aspiration pneumonia sepsis due to Enterococcus faecalis bacteremia [positive BCx 10/29, repeat BCx 11/01 and 11/12 negative] - azithro 10/30-11/04, vanco 10/30-10/31, ceftriaxone 10/31-11/01, pip-don 11/01- and again 11/12-, dapto 11/06-11/12 - discussed with ID. Total 21d antibiotics from 11/01, so today is d20 - placed on erythromycin for gastric motility in ICU; d/c'ed - [employer]IC following; NDD2 solids, nectar liquids pancreatic abnormality - as part of workup of bacteremia, CT abdomen and pelvis was done that showed abrupt change in size of pancreas with atrophy plus ductal dilatation be on pancreatic neck; also extra and intrahepatic biliary dilatation to level of ampulla noted - follow-up MRI obtained to rule out pancreatic mass: no masses but showed changing caliber of pancreatic duct with distal atrophy of pancreatic parenchyma, tortuosity and dilatation of the duct, underlying stricture was not excluded; distended gallbladder with sludge and small stones, common bile duct 1.4 cm without intraductal filling defects, moderate intrahepatic biliary ductal dilatation tjat may represent biliary dyskinesia. - no abdominal pain, normal LFTs; per GI no aggressive invasive procedures as pt asymptomatic - TTE with no vegetation AF/RVR - was difficult to control and got diltiazem IV drip, digoxin IV, and amiodarone PO load. Stable on diltiazem 90 mg qid -> changed to 360 mg CD daily. Continue amiodarone. Currently in sinus tachycardia with abundant PACs- will increase diltiazem to 480 mg CD daily. - Eliquis on hold as above - TTE 11/04: LVEF 60-65%, normal right ventricular cavity size and systolic function, no obvious vegetation noted thrombocytopenia - likely due to infection; resolved acute metabolic encephalopathy due to hypoglycemia - resolved gout - continue allopurinol mood disorder - continue paroxetine DM2 with steroid-induced hyperglycemia - increase correction-dose lispro and glargine moderate protein/oscar malnutrition - supplements code - per ICU attending, DNR/DNI, confirmed with pt and her daughter and reaffirmed 11/20 dispo - STR per PT In my clinical judgment, the patient requires continued inpatient hospitalization for the following reasons: [facility] Total time managing care of this patient today: 50 minutes. Quality Stroke Does the patient have a stroke diagnosis?: No VTE Prior VTE?: No VTE Risk Level:: Medical - moderate - high VTE Device Contraindication: Treatment Not Indicated VTE Drug Contraindication: N/A - Med Ordered
[2023-11-23 11:01] LABS: Glucose, Whole Blood 232 mg/dL (60-115)
--- NOTE | 2023-11-23 11:54 | MHC.CLN ---
F/U PT IS MODERATELY MALNOURISHED PO INTAKE REMAINS 25% CONSISTENTLY DIET RX: 2000DM DIET GRD M/S WITH NT LIQ PER CHILD WELFARE ASSISTANT PT RECEIVING GELATEIN TID WITH MEALS TO INCREASE PO PROTEIN INTAKE SUPPLEMENT PROVIDES 480KCALS, 60G PROTEIN CONTINUE TO MONITOR PO INTAKE AND ENCOURAGE SUPPLEMENTS
--- NOTE | 2023-11-23 14:00 | MHC.SL.SWA ---
Speech Pathologist Impression: Risk of aspiration, oropharyngeal dysphagia Risk of Aspiration Due to: Hx of Recent Extubation Weak Cough Weak Voice Dysphasia Diet Status: No changes at this time Liquid Consistency and Strategies for Safe Swallow: Liquid Intake Recommendation: [place] Thick Liquid Intake Strategies: Small Sips No Straws Solid Food Consistency: Dietary Recommendations: Grnd/Mech Altered (NDD2) Additional Modifications to Solid Foods: Recommend GROUND/MECH ALTERED (NDD2) diet and NECTAR THICK liquids, pills CRUSHED in PUREE. Patient will need close monitoring and direct supervision during meals with strict aspiration precautions. Oral Medication Intake: Crushed with Puree Please contact the pharmacy regarding appropriate crushable or liquid drug formulations that are available whenever modified delivery is recommended. Compensatory Strategies and Precautions to be Taken for Safe Swallow: Sitting Upright (90 deg) No Straw Small Bites and Sips Rate of Ingestion Change Avoid Specific Foods Supervision While Eating and Drinking for Safe Swallow: Total Supervision (1:1) Foods to Avoid: Mixed textures Swallowing Recommended Treatments: Compens. Strategy Educat. Recommendation for Speech: Inpatient Speech Therapy Frequency/Duration: M-F Date Range for Service Req: Timeline to reassess: Helpdesk Administrator Clinican/Clinical Fellow: No Supervisory Statement: I have reviewed and agree with the student/clinical fellow's documentation: N/A Speech Language Pathologist: Angelina Hall M.A., CCC-PRESS CUTTER
[2023-11-23 16:34] LABS: Glucose, Whole Blood 245 mg/dL (60-115)
[2023-11-23] MEDS: Furosemide 40 MG TABLET PO (17:10)
[2023-11-23 21:18] LABS: Glucose, Whole Blood 304 mg/dL (60-115)
[2023-11-23] MEDS: Insulin Glargine,Hum.rec.anlog 100 UNIT/ML 10 ML VIAL 24 UNIT SUBCUT (21:37)
[2023-11-24] VITALS (12 sets, daily range): BP systolic 123–165; BP diastolic 63–108; PULSE 82–120; RESP 16–30; TEMP 36–36.5; O2SAT 90–94; BMI 34.8
--- NOTE | 2023-11-24 | ECG_ITS ---
Test Reason : tachycardia Blood Pressure : / mmHG Vent. Rate : 123 BPM Atrial Rate : 000 BPM P-R Int : 000 ms QRS Dur : 100 ms QT Int : 330 ms P-R-T Axes : 000 004 069 degrees QTc Int : 472 ms Sinus tachycardia with frequent Premature atrial complexes Incomplete right bundle branch block Abnormal ECG When compared with ECG of 17-NOV-2023 18:11, No significant changes seen Referred By: Romi Pal Electronically Signed By:TARI SALAZAR
[2023-11-24] MEDS: Pantoprazole Sodium 40 MG/10 ML VIAL IVPUSH (05:36)
[2023-11-24] MEDS: Morphine Sulfate 2 MG/ML CARTRIDGE IVPUSH ×4 (06:39→20:57)
[2023-11-24] MEDS: Albuterol/Iprat 2.5/0.5MG 3 ML AMPUL.NEB INHALE ×4 (07:44→19:52)
[2023-11-24] MEDS: Potassium Chloride Packet 20 MEQ PACKET 40 MEQ PO (07:48)
[2023-11-24 07:50] LABS: Glucose, Whole Blood 66 mg/dL (60-115)
[2023-11-24] MEDS: Nicotine 14 MG PATCH.TD24 TRANSDERMA (07:52)
[2023-11-24] MEDS: Lidocaine 4 % Patch ADH..PATCH 1 PATCH TRANSDERMA (07:53)
[2023-11-24] MEDS: allopurinoL 300 MG TABLET 150 MG PO (07:53)
[2023-11-24] MEDS: dilTIAZem HCL CD 240 MG CAP.ER.DEG 480 MG PO (07:53)
[2023-11-24] MEDS: Fluticasone/Vilanterol 100/25 BLST.W.DEV 1 PUFF INHALE (07:55)
[2023-11-24] MEDS: Furosemide 40 MG TABLET PO ×2 (07:58→16:54)
[2023-11-24] MEDS: Amiodarone HCL 200 MG TABLET PO (07:58)
[2023-11-24] MEDS: PARoxetine HCL 20 MG TABLET PO (07:58)
[2023-11-24] MEDS: guaiFENesin DM 600/30 1 TAB TAB.ER.12H PO ×2 (07:58→20:51)
[2023-11-24] MEDS: Nystatin Oral Susp 500,000 UNIT/5 ML ORAL.SUSP 500000 UNIT PO ×4 (07:59→20:51)
[2023-11-24] MEDS: Omeprazole 20 MG CAPSULE.DR PO ×2 (07:59→16:54)
[2023-11-24] MEDS: 0.9 % Sodium Chloride Flush 3 ML SYRINGE IVFLUSH ×3 (07:59→20:51)
[2023-11-24 08:10] LABS: Anion Gap 16 (12-20); Blood Urea Nitrogen 19 mg/dL (9-16); Calcium 8.8 mg/dL (8.4-10.2); Chloride 91 mmol/L (96-108); Creatinine Clr Calc Pharmacy 77.1; Estimated Glomerular Filt Rate > 60; Magnesium 1.9 mg/dL (1.6-2.6); Potassium 3.2 mmol/L (3.3-5.1); Sodium 147 mmol/L (135-145)
[2023-11-24 08:18] LABS: Carbon Dioxide 43 mmol/L (22-29); Glucose Random 49 mg/dL (60-115)
[2023-11-24 08:25] LABS: B Type Natriuretic Peptide 77 pg/mL (<100)
[2023-11-24 08:39] LABS: Glucose, Whole Blood 138 mg/dL (60-115)
--- NOTE | 2023-11-24 10:02 | HO.PM.IMPN ---
Subjective Subjective Date of Service: 11/24/23 Interval History: dyspnea improving BG low this AM without symptoms, came up with juice no further GI bleeding Review of Systems Review of Systems: Yes all other systems are reviewed and are negative Physical Exam Vital Signs: Vital Signs: Last Vital Signs Temp 97.6 F 11/24/23 08:00 Pulse 118 H 11/24/23 08:00 Resp 20 11/24/23 08:00 BP 156/67 H 11/24/23 08:00 Pulse Ox 90 L 11/24/23 08:00 O2 Del Method High Flow Nasal C annula 11/24/23 08:00 O2 Flow Rate 45 11/24/23 08:00 FiO2 50 11/24/23 08:00 Oxygen Flow Rate 2 11/10/23 07:30 BMI result Body Mass Index 34.8 Gen: NAD HEENT: sclera anicteric, moist mucus membranes Neck: supple Lungs: diminished Heart: irregular, a little fast, no murmurs Abd: soft, non-tender, non-distended Ext: no edema, LUE PICC Skin: warm/well-perfused, extensive bruising Neuro: alert and oriented x3, no focal findings Psych: appropriate affect Objective Data Active Medications Acetaminophen (Acetaminophen 325 Mg Tablet) 975 mg PO Q6H PRN PRN Reason: mild pain, headache or fever Last Admin: 11/17/23 05:55 Dose: 975 mg Documented By: HUGO Albuterol Sulfate (Albuterol Sulfate (0.083%) 2.5 Mg/3 Ml Vial.Neb) 2.5 mg INHALE Q2H PRN PRN Reason: Shortness of Breath/Wheezing Last Admin: 11/18/23 07:28 Dose: 2.5 mg Documented By: SORAYA Albuterol/Ipratropium (Albuterol/Iprat 2.5/0.5mg 3 Ml Ampul.Neb) 3 ml INHALE RQ4H WHILE AWAKE [facility] Last Admin: 11/24/23 07:44 Dose: 3 ml Documented By: TOMAS Allopurinol (Allopurinol 300 Mg Tablet) 150 mg PO DAILY [facility] Last Admin: 11/24/23 07:53 Dose: 150 mg Documented By: RONALD Amiodarone HCl (Amiodarone Hcl 200 Mg Tablet) 200 mg PO DAILY [facility] Last Admin: 11/24/23 07:58 Dose: 200 mg Documented By: RONALD Apixaban (Apixaban 5 Mg Tablet) 5 mg PO BID [facility] Last Admin: 11/17/23 08:53 Dose: 5 mg Documented By: SAMIFERICO Benzocaine (Throat Lozenge, Medicated Lozenge) 1 lozenge MUCOUS MEM Q2H PRN PRN Reason: Sore Throat Diltiazem HCl (Diltiazem Hcl Cd 240 Mg Cap.Er.Deg) 480 mg PO DAILY [facility]; Protocol Last Admin: 11/24/23 07:53 Dose: 480 mg Documented By: RONALD Docusate Sodium (Docusate Sodium 100 Mg Capsule) 100 mg PO BID PRN PRN Reason: constipation Fluticasone/Vilanterol (Fluticasone/Vilanterol 100/25 Blst.W.Dev) 1 puff INHALE RDAILY [facility] Last Admin: 11/24/23 07:55 Dose: 1 puff Documented By: TOMAS Furosemide (Furosemide 40 Mg Tablet) 40 mg PO BID@0900,1800 [facility]; Protocol Last Admin: 11/24/23 07:58 Dose: 40 mg Documented By: RONALD Glucose (Glucose Gel 15 Gm Gel..Gram.) 15 gm PO Q15M PRN; Protocol PRN Reason: per Hypoglycemia Standing Ord. Guaifenesin/Dextromethorphan (Guaifenesin Dm 600/30 1 Tab Tab.Er.12h) 1 tab PO BID [facility] Last Admin: 11/24/23 07:58 Dose: 1 tab Documented By: RONALD Insulin Glargine (Insulin Glargine,Hum.Rec.Anlog 100 Unit/Ml 10 Ml Vial) 18 unit SUBCUT BEDTIME [facility] Insulin Human Lispro (Insulin Lispro 100 Unit/Ml 3 Ml Vial) 0 unit SUBCUT QIDACHS [facility]; Protocol Last Admin: 11/23/23 21:37 Dose: 16 unit Documented By: ALEXANDRIA Lidocaine (Lidocaine 4 % Patch Adh..Patch) 1 patch TRANSDERMA DAILY [facility]; Protocol Last Admin: 11/24/23 07:53 Dose: 1 patch Documented By: RONALD Methylprednisolone Sodium Succinate (Methylprednisolone Sod Succ 40 Mg/Ml Vial) 40 mg IVPUSH Q24H [facility] Morphine Sulfate (Morphine Sulfate 2 Mg/Ml Cartridge) 2 mg IVPUSH Q2H PRN; Protocol PRN Reason: Pain, Severe (Pain Scale 7-10) Last Admin: 11/24/23 06:39 Dose: 2 mg Documented By: ALEXANDRIA Nicotine (Nicotine 14 Mg Patch.Td24) 14 mg TRANSDERMA DAILY [facility] Last Admin: 11/24/23 07:52 Dose: 14 mg Documented By: RONALD Nystatin (Nystatin Oral Susp 500,000 Unit/5 Ml Oral.Susp) 500,000 unit PO QID [facility]; Protocol Last Admin: 11/24/23 07:59 Dose: 500,000 unit Documented By: RONALD Omeprazole (Omeprazole 20 Mg Capsule.Dr) 20 mg PO BID@0630,1630 [facility] Last Admin: 11/24/23 07:59 Dose: 20 mg Documented By: RONALD Ondansetron HCl (Ondansetron Hcl 4 Mg/2 Ml Vial) 4 mg IVPUSH Q8H PRN PRN Reason: Nausea and Vomiting Last Admin: 11/12/23 20:05 Dose: 4 mg Documented By: TRUDY-RIVAKANKSHA Oxycodone HCl (Oxycodone Hcl Immed Release 5 Mg Tablet) 5 mg PO Q4H PRN PRN Reason: Pain, Severe (Pain Scale 7-10) Paroxetine HCl (Paroxetine Hcl 20 Mg Tablet) 20 mg PO DAILY@0900 [facility] Last Admin: 11/24/23 07:58 Dose: 20 mg Documented By: RONALD Sodium Chloride (0.9 % Sodium Chloride Flush 3 Ml Syringe) 3 ml IVFLUSH QSHIFT [facility] Last Admin: 11/24/23 07:59 Dose: 3 ml Documented By: RONALD Labs 11/23/23 07:52 11/24/23 06:06 Labs: Laboratory Results - last 24 hr 11/23/23 11/23/23 11/23/23 10:55 16:28 21:14 Anion Gap Estim Creat Clear Calc Estimated GFR POC Glucose 232 H 245 H 304 H Random Glucose Calcium Magnesium B-Natriuretic Peptide 11/24/23 11/24/23 11/24/23 06:06 07:38 08:36 Anion Gap 16 Estim Creat Clear Calc 77.1 Estimated GFR > 60 POC Glucose 66 138 H Random Glucose 49 L* Calcium 8.8 Magnesium 1.9 B-Natriuretic Peptide 77 Assessment and Plan (1) Aspiration pneumonia: Status: Acute Plan d26 78yo F with pAF on apixaban, COPD not on hO2, gout, HF with unknown EF, and DM2 presented with AMS, admitted for hypoxia due to CAP + COPD developed worsening hypoxia due to aspiration and intubated on 11/13/23 extubated 11/14/23 and stepped down to telemetry 11/15/23 developed LGIB + CHF/COPD exacerbations still on HFNC acute hypoxic respiratory failure due to acute/chronic HFpEF and acute COPD exacerbation - has developed contraction alkalosis and hypoK; changed IV furosemide gtt [started 11/20] to PO furosemide on 11/22; monitor lytes + BNP daily - wean HFNC as tolerated and use CPAP as necessary for rescue. currently on 50 LPM + 70% fiO2 - started IV methylprednisolone 11/19 and will decrease to daily today. continue nebs. resp pathogen panel negative hypoK - improving, K 3.2 today, replete PO and recheck in AM hyperNa - mild, encourage free water intake, recheck in AM acute blood loss anemia due to LGIB - holding Eliquis. GI consulted. Transfused 2 units 11/21 with good response in H+H; also got vit K. H+H now stable. No bleeding in 72h; stop octreotide and change IV to PO PPI aspiration pneumonia sepsis due to Enterococcus faecalis bacteremia [positive BCx 10/29, repeat BCx 11/01 and 11/12 negative] - azithro 10/30-11/04, vanco 10/30-10/31, ceftriaxone 10/31-11/01, pip-don 11/01- and again 11/12-, dapto 11/06-11/12 - discussed with ID. Total 21d antibiotics from 11/01, so completed yesterday - placed on erythromycin for gastric motility in ICU; d/c'ed - BUSINESS DEVELOPMENT ANALYST following; continue NDD2 solids + nectar liquids pancreatic abnormality - as part of workup of bacteremia, CT abdomen and pelvis was done that showed abrupt change in size of pancreas with atrophy plus ductal dilatation be on pancreatic neck; also extra and intrahepatic biliary dilatation to level of ampulla noted - follow-up MRI obtained to rule out pancreatic mass: no masses but showed changing caliber of pancreatic duct with distal atrophy of pancreatic parenchyma, tortuosity and dilatation of the duct, underlying stricture was not excluded; distended gallbladder with sludge and small stones, common bile duct 1.4 cm without intraductal filling defects, moderate intrahepatic biliary ductal dilatation tjat may represent biliary dyskinesia. - no abdominal pain, normal LFTs; per GI no aggressive invasive procedures as pt asymptomatic - TTE with no vegetation AF/RVR - was difficult to control and got diltiazem IV drip, digoxin IV, and amiodarone PO load. Stable on diltiazem 90 mg qid -> changed to 360 mg CD daily. Continue amiodarone. Currently in sinus tachycardia with abundant PACs; increased diltiazem to 480 mg CD daily on 11/22 - Eliquis on hold as above - TTE 11/04: LVEF 60-65%, normal right ventricular cavity size and systolic function, no obvious vegetation noted thrombocytopenia - likely due to infection; resolved gout - continue allopurinol mood disorder - continue paroxetine DM2 with steroid-induced hyperglycemia and now hypoglycemia - reduce doses of correction-dose lispro and glargine moderate protein/oscar malnutrition - supplements code - per ICU attending, DNR/DNI, confirmed with pt and her daughter and reaffirmed 11/20 dispo - STR per PT In my clinical judgment, the patient requires continued inpatient hospitalization for the following reasons: HFNC Total time managing care of this patient today: 50 minutes. Quality Stroke Does the patient have a stroke diagnosis?: No VTE Prior VTE?: No VTE Risk Level:: Medical - moderate - high VTE Device Contraindication: Treatment Not Indicated VTE Drug Contraindication: N/A - Med Ordered
[2023-11-24] MEDS: Potassium Chloride ER 20 MEQ TAB.ER.PRT 40 MEQ PO (10:30)
[2023-11-24 11:11] LABS: Glucose, Whole Blood 219 mg/dL (60-115)
[2023-11-24] MEDS: Insulin Lispro 100 UNIT/ML 3 ML VIAL SUBCUT ×2 (13:11→16:54)
[2023-11-24] MEDS: oxyCODONE HCl Immed Release 5 MG TABLET PO (14:39)
[2023-11-24 16:33] LABS: Glucose, Whole Blood 491 mg/dL (60-115)
[2023-11-24] MEDS: Throat Lozenge, Medicated LOZENGE 1 LOZENGE MUCOUS MEM (16:54)
[2023-11-24] MEDS: Insulin Lispro 100 UNIT/ML 3 ML VIAL 6 UNIT SUBCUT (16:56)
[2023-11-24] MEDS: methylPREDNISolone Sod Succ 40 MG/ML VIAL IVPUSH (20:51)
[2023-11-24 20:58] LABS: Glucose, Whole Blood 128 mg/dL (60-115)
[2023-11-24] MEDS: Insulin Glargine,Hum.rec.anlog 100 UNIT/ML 10 ML VIAL 18 UNIT SUBCUT (21:07)
[2023-11-25] VITALS (15 sets, daily range): BP systolic 124–140; BP diastolic 64–88; PULSE 71–126; RESP 16–24; TEMP 35.8–36.6; O2SAT 89–97; BMI 35.4
[2023-11-25] MEDS: Omeprazole 20 MG CAPSULE.DR PO ×2 (05:59→18:21)
[2023-11-25] MEDS: Morphine Sulfate 2 MG/ML CARTRIDGE IVPUSH ×4 (05:59→22:16)
[2023-11-25 06:46] LABS: Hematocrit 31.2 % (37.0-47.0); Hemoglobin 10.1 g/dl (12.0-16.0); Mean Corpuscular HGB Conc 32.4 g/dl (31.0-35.0); Mean Corpuscular Hemoglobin 30.1 pg (27.0-33.0); Mean Corpuscular Volume 92.9 fL (80.0-98.0); Mean Platelet Volume 10.7 fL (9.4-12.3); Platelet Count 236 X10*3/uL (160-400); Red Blood Count 3.36 X10*6/uL (4.20-5.50); Red Cell Distribution Width 17.1 % (11.0-16.0); White Blood Count 4.9 X10*3/uL (4.8-10.8)
[2023-11-25 07:03] LABS: B Type Natriuretic Peptide 86 pg/mL (<100)
[2023-11-25 07:07] LABS: Anion Gap 15 (12-20); Blood Urea Nitrogen 20 mg/dL (9-16); Calcium 8.3 mg/dL (8.4-10.2); Chloride 88 mmol/L (96-108); Estimated Glomerular Filt Rate > 60; Glucose Random 303 mg/dL (60-115); Magnesium 1.8 mg/dL (1.6-2.6); Potassium 4.2 mmol/L (3.3-5.1); Sodium 143 mmol/L (135-145)
[2023-11-25 07:18] LABS: Carbon Dioxide 44 mmol/L (22-29)
[2023-11-25] MEDS: Albuterol/Iprat 2.5/0.5MG 3 ML AMPUL.NEB INHALE ×4 (08:11→18:54)
[2023-11-25] MEDS: Fluticasone/Vilanterol 100/25 BLST.W.DEV 1 PUFF INHALE (08:11)
[2023-11-25 08:40] LABS: Glucose, Whole Blood 307 mg/dL (60-115)
[2023-11-25] MEDS: Insulin Lispro 100 UNIT/ML 3 ML VIAL SUBCUT ×4 (09:09→22:06)
[2023-11-25] MEDS: Nystatin Oral Susp 500,000 UNIT/5 ML ORAL.SUSP 500000 UNIT PO ×4 (09:12→22:07)
[2023-11-25] MEDS: acetaZOLAMIDE sodium 500 MG VIAL 250 MG IVPUSH ×2 (09:12→22:06)
[2023-11-25] MEDS: allopurinoL 300 MG TABLET 150 MG PO (09:12)
[2023-11-25] MEDS: oxyCODONE HCl Immed Release 5 MG TABLET PO (09:14)
[2023-11-25] MEDS: PARoxetine HCL 20 MG TABLET PO (09:15)
[2023-11-25] MEDS: Acetaminophen 325 MG TABLET 975 MG PO (09:15)
[2023-11-25] MEDS: Amiodarone HCL 200 MG TABLET PO (09:16)
[2023-11-25] MEDS: dilTIAZem HCL CD 240 MG CAP.ER.DEG 480 MG PO (09:17)
[2023-11-25] MEDS: Nicotine 14 MG PATCH.TD24 TRANSDERMA (09:18)
[2023-11-25] MEDS: Furosemide 40 MG TABLET PO ×2 (09:18→18:22)
[2023-11-25] MEDS: Lidocaine 4 % Patch ADH..PATCH 1 PATCH TRANSDERMA (09:18)
[2023-11-25] MEDS: 0.9 % Sodium Chloride Flush 3 ML SYRINGE IVFLUSH ×3 (09:19→22:07)
--- NOTE | 2023-11-25 11:01 | HO.PM.IMPN ---
Subjective Subjective Date of Service: 11/25/23 Interval History: dyspnea slowly improving c/o back pain no further BRBPR tolerating diet Review of Systems Review of Systems: Yes all other systems are reviewed and are negative Physical Exam Vital Signs: Vital Signs: Last Vital Signs Temp 96.4 F L 11/25/23 08:00 Pulse 97 11/25/23 08:13 Resp 22 H 11/25/23 08:16 BP 140/76 H 11/25/23 08:00 Pulse Ox 97 11/25/23 08:00 O2 Del Method High Flow Nasal C annula 11/25/23 08:00 O2 Flow Rate 50 11/25/23 08:00 FiO2 60 11/25/23 08:00 Oxygen Flow Rate 2 11/10/23 07:30 BMI result Body Mass Index 35.4 Gen: NAD HEENT: sclera anicteric, moist mucus membranes Neck: supple Lungs: diffuse expiratory wheezing Heart: irregular, no murmurs Abd: soft, non-tender, non-distended Ext: no edema, LUE midline catheter Skin: warm/well-perfused, extensive bruising Neuro: alert and oriented x3, no focal findings Psych: appropriate affect Objective Data Active Medications Acetaminophen (Acetaminophen 325 Mg Tablet) 975 mg PO Q6H PRN PRN Reason: mild pain, headache or fever Last Admin: 11/25/23 09:15 Dose: 975 mg Documented By: RONALD Acetazolamide (Acetazolamide Sodium 500 Mg Vial) 250 mg IVPUSH ONCE ONE Stop: 11/25/23 20:01 Albuterol Sulfate (Albuterol Sulfate (0.083%) 2.5 Mg/3 Ml Vial.Neb) 2.5 mg INHALE Q2H PRN PRN Reason: Shortness of Breath/Wheezing Last Admin: 11/18/23 07:28 Dose: 2.5 mg Documented By: SORAYA Albuterol/Ipratropium (Albuterol/Iprat 2.5/0.5mg 3 Ml Ampul.Neb) 3 ml INHALE RQ4H WHILE AWAKE [facility] Last Admin: 11/25/23 08:11 Dose: 3 ml Documented By: ADEOLA Allopurinol (Allopurinol 300 Mg Tablet) 150 mg PO DAILY [facility] Last Admin: 11/25/23 09:12 Dose: 150 mg Documented By: RONALD Amiodarone HCl (Amiodarone Hcl 200 Mg Tablet) 200 mg PO DAILY [facility] Last Admin: 11/25/23 09:16 Dose: 200 mg Documented By: RONALD Apixaban (Apixaban 5 Mg Tablet) 5 mg PO BID [facility] Last Admin: 11/17/23 08:53 Dose: 5 mg Documented By: MONFERICO Benzocaine (Throat Lozenge, Medicated Lozenge) 1 lozenge MUCOUS MEM Q2H PRN PRN Reason: Sore Throat Last Admin: 11/24/23 16:54 Dose: 1 lozenge Documented By: RIOMAUREEN Diltiazem HCl (Diltiazem Hcl Cd 240 Mg Cap.Er.Deg) 480 mg PO DAILY [facility]; Protocol Last Admin: 11/25/23 09:17 Dose: 480 mg Documented By: RONALD Docusate Sodium (Docusate Sodium 100 Mg Capsule) 100 mg PO BID PRN PRN Reason: constipation Fluticasone/Vilanterol (Fluticasone/Vilanterol 100/25 Blst.W.Dev) 1 puff INHALE RDAILY [facility] Last Admin: 11/25/23 08:11 Dose: 1 puff Documented By: ADEOLA Furosemide (Furosemide 40 Mg Tablet) 40 mg PO BID@0900,1800 [facility]; Protocol Last Admin: 11/25/23 09:18 Dose: 40 mg Documented By: RONALD Glucose (Glucose Gel 15 Gm Gel..Gram.) 15 gm PO Q15M PRN; Protocol PRN Reason: per Hypoglycemia Standing Ord. Guaifenesin/Dextromethorphan (Guaifenesin Dm 600/30 1 Tab Tab.Er.12h) 1 tab PO BID [facility] Last Admin: 11/24/23 20:51 Dose: 1 tab Documented By: ALEXANDRIA Insulin Glargine (Insulin Glargine,Hum.Rec.Anlog 100 Unit/Ml 10 Ml Vial) 18 unit SUBCUT BEDTIME [facility] Last Admin: 11/24/23 21:07 Dose: 18 unit Documented By: ALEXANDRIA Insulin Human Lispro (Insulin Lispro 100 Unit/Ml 3 Ml Vial) 0 unit SUBCUT QIDACHS [facility]; Protocol Last Admin: 11/25/23 09:09 Dose: 14 unit Documented By: RONALD Lidocaine (Lidocaine 4 % Patch Adh..Patch) 1 patch TRANSDERMA DAILY [facility]; Protocol Last Admin: 11/25/23 09:18 Dose: 1 patch Documented By: RONALD Methylprednisolone Sodium Succinate (Methylprednisolone Sod Succ 40 Mg/Ml Vial) 40 mg IVPUSH Q24H [facility] Last Admin: 11/24/23 20:51 Dose: 40 mg Documented By: ALEXANDRIA Morphine Sulfate (Morphine Sulfate 2 Mg/Ml Cartridge) 2 mg IVPUSH Q2H PRN; Protocol PRN Reason: Pain, Severe (Pain Scale 7-10) Last Admin: 11/25/23 05:59 Dose: 2 mg Documented By: ALEXANDRIA Nicotine (Nicotine 14 Mg Patch.Td24) 14 mg TRANSDERMA DAILY [facility] Last Admin: 11/25/23 09:18 Dose: 14 mg Documented By: RONALD Nystatin (Nystatin Oral Susp 500,000 Unit/5 Ml Oral.Susp) 500,000 unit PO QID [facility]; Protocol Last Admin: 11/25/23 09:12 Dose: 500,000 unit Documented By: RONALD Omeprazole (Omeprazole 20 Mg Capsule.Dr) 20 mg PO BID@0630,1630 [facility] Last Admin: 11/25/23 05:59 Dose: 20 mg Documented By: ALEXANDRIA Ondansetron HCl (Ondansetron Hcl 4 Mg/2 Ml Vial) 4 mg IVPUSH Q8H PRN PRN Reason: Nausea and Vomiting Last Admin: 11/12/23 20:05 Dose: 4 mg Documented By: BRAD Oxycodone HCl (Oxycodone Hcl Immed Release 5 Mg Tablet) 5 mg PO Q4H PRN PRN Reason: Pain, Severe (Pain Scale 7-10) Last Admin: 11/25/23 09:14 Dose: 5 mg Documented By: RONALD Paroxetine HCl (Paroxetine Hcl 20 Mg Tablet) 20 mg PO DAILY@0900 [facility] Last Admin: 11/25/23 09:15 Dose: 20 mg Documented By: RONALD Sodium Chloride (0.9 % Sodium Chloride Flush 3 Ml Syringe) 3 ml IVFLUSH QSHIFT [facility] Last Admin: 11/25/23 09:19 Dose: 3 ml Documented By: RONALD Labs 11/25/23 06:06 11/25/23 06:06 Labs: Laboratory Results - last 24 hr 11/24/23 11/24/23 11/24/23 11:02 16:12 20:52 MCV MCH MCHC RDW Plt Count MPV Absolute Nucleated RBC Nucleated RBC % (auto) Anion Gap Estim Creat Clear Calc Estimated GFR POC Glucose 219 H 491 H* 128 H Random Glucose Calcium Magnesium B-Natriuretic Peptide 11/25/23 11/25/23 06:06 08:34 MCV 92.9 MCH 30.1 MCHC 32.4 RDW 17.1 H Plt Count 236 D MPV 10.7 Absolute Nucleated RBC 0.000 Nucleated RBC % (auto) 0.0 Anion Gap 15 Estim Creat Clear Calc 66.0 Estimated GFR > 60 POC Glucose 307 H Random Glucose 303 H Calcium 8.3 L Magnesium 1.8 B-Natriuretic Peptide 86 Assessment and Plan (1) Aspiration pneumonia: Status: Acute Plan d27 78yo F with pAF on apixaban, COPD not on hO2, gout, HF with unknown EF, and DM2 presented with AMS, admitted for hypoxia due to CAP + COPD developed worsening hypoxia due to aspiration and intubated on 11/13/23 extubated 11/14/23 and stepped down to telemetry 11/15/23 developed LGIB + CHF/COPD exacerbations still on HFNC but gradually weaning ACTIVE ISSUES: acute hypoxic respiratory failure due to acute/chronic HFpEF and acute COPD exacerbation - has developed contraction alkalosis and hypoK; changed IV furosemide gtt [started 11/20] to PO furosemide on 11/22; give acetazolamide 250 mg x 2 doses today; monitor BNP daily - wean HFNC as tolerated and use CPAP as necessary for rescue. currently on 50->40 LPM + 70->60% fiO2 - started IV methylprednisolone 11/19 and decreased from q12h to q24h 11/23. continue nebs. resp pathogen panel negative acute blood loss anemia due to LGIB - holding Eliquis. GI consulted. Transfused 2 units 11/21 with good response in H+H; also got vit K. H+H now stable. Stopped octreotide. IV PPI changed to PO. DM2 with steroid-induced hyperglycemia - increase doses of correction-dose lispro and glargine pancreatic abnormality - as part of workup of bacteremia, CT abdomen and pelvis was done that showed abrupt change in size of pancreas with atrophy plus ductal dilatation be on pancreatic neck; also extra and intrahepatic biliary dilatation to level of ampulla noted - follow-up MRI obtained to rule out pancreatic mass: no masses but showed changing caliber of pancreatic duct with distal atrophy of pancreatic parenchyma, tortuosity and dilatation of the duct, underlying stricture was not excluded; distended gallbladder with sludge and small stones, common bile duct 1.4 cm without intraductal filling defects, moderate intrahepatic biliary ductal dilatation tjat may represent biliary dyskinesia. - no abdominal pain, normal LFTs; per GI no aggressive invasive procedures as pt asymptomatic - TTE with no vegetation moderate protein/oscar malnutrition - supplements RESOLVED ISSUES: aspiration pneumonia sepsis due to Enterococcus faecalis bacteremia [positive BCx 10/29, repeat BCx 11/01 and 11/12 negative] - azithro 10/30-11/04, vanco 10/30-10/31, ceftriaxone 10/31-11/01, pip-don 11/01- and again 11/12-11/22, dapto 11/06-11/12 - discussed with ID. 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 Stable on diltiazem 90 mg qid -> changed to 360 mg CD daily. Continue amiodarone. Currently in sinus tachycardia with abundant PACs; increased diltiazem to 480 mg CD daily on 11/22 - Eliquis on hold as above - TTE 11/04: LVEF 60-65%, normal right ventricular cavity size and systolic function, no obvious vegetation noted thrombocytopenia - likely due to infection; resolved hypoK - repleted hyperNa - resolved CHRONIC ISSUES: gout - continue allopurinol mood disorder - continue paroxetine CODE STATUS: per ICU attending, DNR/DNI, confirmed with pt and her daughter and reaffirmed 11/20 DISPO: STR per PT In my clinical judgment, the patient requires continued inpatient hospitalization for the following reasons: HFNC, weaning slowly Total time managing care of this patient today: 50 minutes. Quality Stroke Does the patient have a stroke diagnosis?: No VTE Prior VTE?: No VTE Risk Level:: Medical - moderate - high VTE Device Contraindication: Treatment Not Indicated VTE Drug Contraindication: N/A - Med Ordered
[2023-11-25 12:01] LABS: Glucose, Whole Blood 299 mg/dL (60-115)
[2023-11-25] MEDS: guaiFENesin DM 600/30 1 TAB TAB.ER.12H PO ×2 (12:02→22:07)
[2023-11-25 14:38] LABS: Aldosterone/Renin Ratio 0.5 Ratio (0.9-28.9); Plasma Renin Activity 12.74 ng/mL/h (0.25-5.82)
[2023-11-25 17:35] LABS: Glucose, Whole Blood 152 mg/dL (60-115)
[2023-11-25 20:29] LABS: Glucose, Whole Blood 316 mg/dL (60-115)
[2023-11-25] MEDS: methylPREDNISolone Sod Succ 40 MG/ML VIAL IVPUSH (22:06)
[2023-11-25] MEDS: Insulin Glargine,Hum.rec.anlog 100 UNIT/ML 10 ML VIAL 21 UNIT SUBCUT (22:07)
[2023-11-26] VITALS (17 sets, daily range): BP systolic 102–147; BP diastolic 57–81; PULSE 88–128; RESP 18–24; TEMP 34.9–37.2; O2SAT 90–97; BMI 35.2
[2023-11-26] MEDS: Omeprazole 20 MG CAPSULE.DR PO ×2 (05:53→16:48)
--- NOTE | 2023-11-26 06:09 | PC.NURSE ---
pt hypothermic. initial intervention of extra blankets and heat packs ineffective. notified. bairhugger ordered. pt with no change in mentation or complaints. 0605: bairhugger set to medium. pt awake, calm watching tv conversing with nurse at bedside. call navarrete in reach. plan of care ongoing
[2023-11-26 06:31] LABS: Venous Blood Gas Refer to POC result
[2023-11-26 06:34] LABS: VBG Base Excess 20.1 mmol/L; VBG HCO3 46 mmol/L (22-26); VBG pCO2 62 mmHg; VBG pH 7.47 (7.32-7.43); VBG pO2 34 mmHg
[2023-11-26 06:56] LABS: Blood Urea Nitrogen 24 mg/dL (9-16); Calcium 8.6 mg/dL (8.4-10.2); Creatinine Clr Calc Pharmacy 62.2; Estimated Glomerular Filt Rate > 60; Glucose Random 221 mg/dL (60-115)
[2023-11-26 07:23] LABS: Glucose, Whole Blood 235 mg/dL (60-115)
[2023-11-26 07:25] LABS: Anion Gap 15 (12-20); Carbon Dioxide 38 mmol/L (22-29); Chloride 92 mmol/L (96-108); Potassium 3.1 mmol/L (3.3-5.1); Sodium 142 mmol/L (135-145)
[2023-11-26] MEDS: Albuterol/Iprat 2.5/0.5MG 3 ML AMPUL.NEB INHALE ×4 (07:45→19:41)
[2023-11-26] MEDS: Fluticasone/Vilanterol 100/25 BLST.W.DEV 1 PUFF INHALE (07:52)
[2023-11-26] MEDS: Morphine Sulfate 2 MG/ML CARTRIDGE IVPUSH ×3 (08:51→21:22)
[2023-11-26] MEDS: Insulin Lispro 100 UNIT/ML 3 ML VIAL SUBCUT ×4 (09:00→21:11)
[2023-11-26] MEDS: 0.9 % Sodium Chloride Flush 3 ML SYRINGE IVFLUSH ×3 (09:01→21:15)
[2023-11-26] MEDS: Lidocaine 4 % Patch ADH..PATCH 1 PATCH TRANSDERMA (09:02)
[2023-11-26] MEDS: Nicotine 14 MG PATCH.TD24 TRANSDERMA (09:02)
[2023-11-26] MEDS: guaiFENesin DM 600/30 1 TAB TAB.ER.12H PO ×2 (09:04→21:09)
[2023-11-26] MEDS: Potassium Chloride ER 20 MEQ TAB.ER.PRT 40 MEQ PO (09:04)
[2023-11-26] MEDS: PARoxetine HCL 20 MG TABLET PO (09:05)
[2023-11-26] MEDS: allopurinoL 300 MG TABLET 150 MG PO (09:05)
[2023-11-26] MEDS: dilTIAZem HCL CD 240 MG CAP.ER.DEG 480 MG PO (09:05)
[2023-11-26] MEDS: Furosemide 40 MG TABLET PO ×2 (09:05→16:48)
[2023-11-26] MEDS: Amiodarone HCL 200 MG TABLET PO (09:05)
[2023-11-26] MEDS: Nystatin Oral Susp 500,000 UNIT/5 ML ORAL.SUSP 500000 UNIT PO ×4 (09:05→21:08)
[2023-11-26] MEDS: Throat Lozenge, Medicated LOZENGE 1 LOZENGE MUCOUS MEM ×3 (09:05→21:23)
[2023-11-26 11:06] LABS: Glucose, Whole Blood 246 mg/dL (60-115)
--- NOTE | 2023-11-26 11:07 | HO.PM.IMPN ---
Subjective Subjective Date of Service: 11/26/23 Interval History: still sob Physical Exam Vital Signs: Vital Signs: Last Vital Signs Temp 98.9 F 11/26/23 10:23 Pulse 125 H 11/26/23 08:00 Resp 22 H 11/26/23 08:00 BP 122/68 11/26/23 08:00 Pulse Ox 93 11/26/23 08:00 O2 Del Method High Flow Nasal C annula 11/26/23 08:00 O2 Flow Rate 40 11/26/23 08:00 FiO2 50 11/26/23 08:00 Oxygen Flow Rate 2 11/10/23 07:30 BMI result Body Mass Index 35.2 Gen: NAD HEENT: sclera anicteric, moist mucus membranes Neck: supple Lungs: diffuse expiratory wheezing Heart: irregular, no murmurs Abd: soft, non-tender, non-distended Ext: no edema, LUE midline catheter Skin: warm/well-perfused, extensive bruising Neuro: alert and oriented x3, no focal findings Psych: appropriate affect Objective Data Active Medications Acetaminophen (Acetaminophen 325 Mg Tablet) 975 mg PO Q6H PRN PRN Reason: mild pain, headache or fever Last Admin: 11/25/23 09:15 Dose: 975 mg Documented By: RONALD Albuterol Sulfate (Albuterol Sulfate (0.083%) 2.5 Mg/3 Ml Vial.Neb) 2.5 mg INHALE Q2H PRN PRN Reason: Shortness of Breath/Wheezing Last Admin: 11/18/23 07:28 Dose: 2.5 mg Documented By: SORAYA Albuterol/Ipratropium (Albuterol/Iprat 2.5/0.5mg 3 Ml Ampul.Neb) 3 ml INHALE RQ4H WHILE AWAKE [facility] Last Admin: 11/26/23 07:45 Dose: 3 ml Documented By: TOMAS Allopurinol (Allopurinol 300 Mg Tablet) 150 mg PO DAILY [facility] Last Admin: 11/26/23 09:05 Dose: 150 mg Documented By: CRUZ Amiodarone HCl (Amiodarone Hcl 200 Mg Tablet) 200 mg PO DAILY [facility] Last Admin: 11/26/23 09:05 Dose: 200 mg Documented By: CRUZ Apixaban (Apixaban 5 Mg Tablet) 5 mg PO BID [facility] Last Admin: 11/17/23 08:53 Dose: 5 mg Documented By: MONFERICO Benzocaine (Throat Lozenge, Medicated Lozenge) 1 lozenge MUCOUS MEM Q2H PRN PRN Reason: Sore Throat Last Admin: 11/26/23 09:05 Dose: 1 lozenge Documented By: CRUZ Diltiazem HCl (Diltiazem Hcl Cd 240 Mg Cap.Er.Deg) 480 mg PO DAILY [facility]; Protocol Last Admin: 11/26/23 09:05 Dose: 480 mg Documented By: CRUZ Docusate Sodium (Docusate Sodium 100 Mg Capsule) 100 mg PO BID PRN PRN Reason: constipation Fluticasone/Vilanterol (Fluticasone/Vilanterol 100/25 Blst.W.Dev) 1 puff INHALE RDAILY [facility] Last Admin: 11/26/23 07:52 Dose: 1 puff Documented By: TOMAS Furosemide (Furosemide 40 Mg Tablet) 40 mg PO BID@0900,1800 [facility]; Protocol Last Admin: 11/26/23 09:05 Dose: 40 mg Documented By: CRUZ Glucose (Glucose Gel 15 Gm Gel..Gram.) 15 gm PO Q15M PRN; Protocol PRN Reason: per Hypoglycemia Standing Ord. Guaifenesin/Dextromethorphan (Guaifenesin Dm 600/30 1 Tab Tab.Er.12h) 1 tab PO BID [facility] Last Admin: 11/26/23 09:04 Dose: 1 tab Documented By: CRUZ Insulin Glargine (Insulin Glargine,Hum.Rec.Anlog 100 Unit/Ml 10 Ml Vial) 21 unit SUBCUT BEDTIME [facility] Last Admin: 11/25/23 22:07 Dose: 21 unit Documented By: LAFLAMLea Insulin Human Lispro (Insulin Lispro 100 Unit/Ml 3 Ml Vial) 0 unit SUBCUT QIDACHS [facility]; Protocol Last Admin: 11/26/23 09:00 Dose: 8 unit Documented By: CRUZ Lidocaine (Lidocaine 4 % Patch Adh..Patch) 1 patch TRANSDERMA DAILY [facility]; Protocol Last Admin: 11/26/23 09:02 Dose: 1 patch Documented By: CRUZ Methylprednisolone Sodium Succinate (Methylprednisolone Sod Succ 40 Mg/Ml Vial) 40 mg IVPUSH Q24H [facility] Last Admin: 11/25/23 22:06 Dose: 40 mg Documented By: MELVIN Morphine Sulfate (Morphine Sulfate 2 Mg/Ml Cartridge) 2 mg IVPUSH Q2H PRN; Protocol PRN Reason: Pain, Severe (Pain Scale 7-10) Last Admin: 11/26/23 08:51 Dose: 2 mg Documented By: CRUZ Nicotine (Nicotine 14 Mg Patch.Td24) 14 mg TRANSDERMA DAILY [facility] Last Admin: 11/26/23 09:02 Dose: 14 mg Documented By: CRUZ Nystatin (Nystatin Oral Susp 500,000 Unit/5 Ml Oral.Susp) 500,000 unit PO QID [facility]; Protocol Last Admin: 11/26/23 09:05 Dose: 500,000 unit Documented By: CRUZ Omeprazole (Omeprazole 20 Mg Capsule.Dr) 20 mg PO BID@0630,1630 [facility] Last Admin: 11/26/23 05:53 Dose: 20 mg Documented By: MELVIN Ondansetron HCl (Ondansetron Hcl 4 Mg/2 Ml Vial) 4 mg IVPUSH Q8H PRN PRN Reason: Nausea and Vomiting Last Admin: 11/12/23 20:05 Dose: 4 mg Documented By: BRAD Oxycodone HCl (Oxycodone Hcl Immed Release 5 Mg Tablet) 5 mg PO Q4H PRN PRN Reason: Pain, Severe (Pain Scale 7-10) Last Admin: 11/25/23 09:14 Dose: 5 mg Documented By: RONALD Paroxetine HCl (Paroxetine Hcl 20 Mg Tablet) 20 mg PO DAILY@0900 [facility] Last Admin: 11/26/23 09:05 Dose: 20 mg Documented By: CRUZ Sodium Chloride (0.9 % Sodium Chloride Flush 3 Ml Syringe) 3 ml IVFLUSH QSHIFT [facility] Last Admin: 11/26/23 09:01 Dose: 3 ml Documented By: CRUZ Labs 11/25/23 06:06 11/26/23 06:25 Labs: Laboratory Results - last 24 hr 11/10/23 11/25/23 11/25/23 23:38 11:48 17:27 VBG pH VBG pCO2 VBG pO2 VBG HCO3 VBG O2 Saturation VBG Base Excess Anion Gap Estim Creat Clear Calc Estimated GFR POC Glucose 299 H 152 H Random Glucose Calcium Renin Activity 12.74 H Aldosterone 6 Aldosterone/Renin Ratio 0.5 L 11/25/23 11/26/23 11/26/23 20:24 06:25 06:27 VBG pH 7.47 H VBG pCO2 62 VBG pO2 34 VBG HCO3 46 H VBG O2 Saturation 51.0 VBG Base Excess 20.1 Anion Gap 15 Estim Creat Clear Calc 62.2 Estimated GFR > 60 POC Glucose 316 H Random Glucose 221 H Calcium 8.6 Renin Activity Aldosterone Aldosterone/Renin Ratio 11/26/23 11/26/23 07:17 10:57 VBG pH VBG pCO2 VBG pO2 VBG HCO3 VBG O2 Saturation VBG Base Excess Anion Gap Estim Creat Clear Calc Estimated GFR POC Glucose 235 H 246 H Random Glucose Calcium Renin Activity Aldosterone Aldosterone/Renin Ratio Assessment and Plan (1) Aspiration pneumonia: Status: Acute Plan d28 78yo F with pAF on apixaban, COPD not on hO2, gout, HF with unknown EF, and DM2 presented with AMS, admitted for hypoxia due to CAP + COPD developed worsening hypoxia due to aspiration and intubated on 11/13/23 extubated 11/14/23 and stepped down to telemetry 11/15/23 developed LGIB + CHF/COPD exacerbations still on HFNC but gradually weaning ACTIVE ISSUES: acute hypoxic respiratory failure due to acute/chronic HFpEF and acute COPD exacerbation has developed contraction alkalosis and hypoK; changed IV furosemide gtt [started 11/20] to PO furosemide on 11/22; given acetazolamide 250 mg x 2 doses 11/24, will give another 2 doses today; monitor BNP daily wean HFNC as tolerated and use CPAP as necessary for rescue. currently on 50->40 LPM + 70->60% fiO2 started IV methylprednisolone 11/19 and decreased from q12h to q24h 11/23. continue nebs. resp pathogen panel negative acute blood loss anemia due to LGIB holding Eliquis. GI consulted. Transfused 2 units 11/21 with good response in H+H; also got vit K. H+H now stable. Stopped octreotide. IV PPI changed to PO. DM2 with steroid-induced hyperglycemia increased doses of correction-dose lispro and glargine pancreatic abnormality as part of workup of bacteremia, CT abdomen and pelvis was done that showed abrupt change in size of pancreas with atrophy plus ductal dilatation be on pancreatic neck; also extra and intrahepatic biliary dilatation to level of ampulla noted -follow-up MRI obtained to rule out pancreatic mass: no masses but showed changing caliber of pancreatic duct with distal atrophy of pancreatic parenchyma, tortuosity and dilatation of the duct, underlying stricture was not excluded; distended gallbladder with sludge and small stones, common bile duct 1.4 cm without intraductal filling defects, moderate intrahepatic biliary ductal dilatation tjat may represent biliary dyskinesia. -no abdominal pain, normal LFTs; per GI no aggressive invasive procedures as pt asymptomatic TTE with no vegetation moderate protein/oscar malnutrition supplements RESOLVED ISSUES: aspiration pneumonia sepsis due to Enterococcus faecalis bacteremia [positive BCx 10/29, repeat BCx 11/01 and 11/12 negative] - azithro 10/30-11/04, vanco 10/30-10/31, ceftriaxone 10/31-11/01, pip-don 11/01- and again 11/12-11/22, dapto 11/06-11/12 - discussed with ID. Total 21d antibiotics from 11/01 completed - placed on erythromycin for gastric motility in ICU; d/c'ed - [employer] following; continue NDD2 solids + nectar liquids AF/RVR - was difficult to control and got diltiazem IV drip, digoxin IV, and amiodarone PO load. Stable on diltiazem 90 mg qid -> changed to 360 mg CD daily. Continue amiodarone. Currently in sinus tachycardia with abundant PACs; increased diltiazem to 480 mg CD daily on 11/22 - Eliquis on hold as above - TTE 11/04: LVEF 60-65%, normal right ventricular cavity size and systolic function, no obvious vegetation noted thrombocytopenia - likely due to infection; resolved hypoK - repleted hyperNa - resolved CHRONIC ISSUES: gout continue allopurinol mood disorder continue paroxetine CODE STATUS: per ICU attending, DNR/DNI, confirmed with pt and her daughter and reaffirmed 11/20 DISPO: STR per PT reason for continued hospitalization: on high flow Total time managing care of this patient today: 50 minutes. Quality Stroke Does the patient have a stroke diagnosis?: No VTE Prior VTE?: No VTE Risk Level:: Medical - moderate - high VTE Device Contraindication: Treatment Not Indicated VTE Drug Contraindication: N/A - Med Ordered
[2023-11-26] MEDS: acetaZOLAMIDE sodium 500 MG VIAL 250 MG IVPUSH (12:02)
[2023-11-26] MEDS: oxyCODONE HCl Immed Release 5 MG TABLET PO (12:03)
--- NOTE | 2023-11-26 14:16 | MHC.CLN ---
F/U PT IS MODERATELY MALNOURISHED PO INTAKE 75-100% DIET RX: 2000DM DIET GRD M/S WITH NT LIQ PER CHIEF ENGINEERING DIVISION PT RECEIVING GELATEIN TID WITH MEALS TO INCREASE PO PROTEIN INTAKE SUPPLEMENT PROVIDES 480KCALS, 60G PROTEIN CONTINUE TO MONITOR PO INTAKE AND ENCOURAGE SUPPLEMENTS
--- NOTE | 2023-11-26 14:37 | MHC.SL.SWA ---
Speech Pathologist Impression: Risk of aspiration, oropharyngeal dysphagia Risk of Aspiration Due to: Hx of Recent Extubation Weak Cough Weak Voice Dysphasia Diet Status: No changes at this time Liquid Consistency and Strategies for Safe Swallow: Liquid Intake Recommendation: Elmo Thick Liquid Intake Strategies: Small Sips No Straws Solid Food Consistency: Dietary Recommendations: Grnd/Mech Altered (NDD2) Additional Modifications to Solid Foods: Recommend GROUND/MECH ALTERED (NDD2) diet and NECTAR THICK liquids, pills CRUSHED in PUREE. Patient will need close monitoring and direct supervision during meals with strict aspiration precautions. Oral Medication Intake: Crushed with Puree Please contact the pharmacy regarding appropriate crushable or liquid drug formulations that are available whenever modified delivery is recommended. Compensatory Strategies and Precautions to be Taken for Safe Swallow: Sitting Upright (90 deg) No Straw Small Bites and Sips Rate of Ingestion Change Avoid Specific Foods Supervision While Eating and Drinking for Safe Swallow: Total Supervision (1:1) Foods to Avoid: Mixed textures Swallowing Recommended Treatments: Compens. Strategy Educat. Recommendation for Speech: Inpatient Speech Therapy Frequency/Duration: M-F Date Range for Service Req: Timeline to reassess: Airframe And Powerplant Mechanic Clinican/Clinical Fellow: No Supervisory Statement: I have reviewed and agree with the student/clinical fellow's documentation: N/A Speech Language Pathologist: Angelina Hall M.A., CCC-MEDICAL COLLECTIONS
[2023-11-26 16:40] LABS: Glucose, Whole Blood 396 mg/dL (60-115)
[2023-11-26 20:01] LABS: Glucose, Whole Blood 214 mg/dL (60-115)
[2023-11-26 20:29] LABS: Glucose, Whole Blood 213 mg/dL (60-115)
[2023-11-26] MEDS: methylPREDNISolone Sod Succ 40 MG/ML VIAL IVPUSH (21:09)
[2023-11-26] MEDS: Insulin Glargine,Hum.rec.anlog 100 UNIT/ML 10 ML VIAL 21 UNIT SUBCUT (21:10)
[2023-11-27] VITALS (15 sets, daily range): BP systolic 102–137; BP diastolic 52–66; PULSE 89–124; RESP 14–24; TEMP 36.1–36.6; O2SAT 88–95; BMI 35.0
[2023-11-27] MEDS: acetaZOLAMIDE sodium 500 MG VIAL 250 MG IVPUSH (01:00)
[2023-11-27 06:34] LABS: Venous Blood Gas Refer to POC result
[2023-11-27 06:37] LABS: Hematocrit 33.5 % (37.0-47.0); Hemoglobin 10.6 g/dl (12.0-16.0); Mean Corpuscular HGB Conc 31.6 g/dl (31.0-35.0); Mean Corpuscular Hemoglobin 29.7 pg (27.0-33.0); Mean Corpuscular Volume 93.8 fL (80.0-98.0); Mean Platelet Volume 10.3 fL (9.4-12.3); NRBC Pct Auto 0.2 /100WBC (0.0-0.2); Platelet Count 338 X10*3/uL (160-400); Red Blood Count 3.57 X10*6/uL (4.20-5.50); Red Cell Distribution Width 16.8 % (11.0-16.0); White Blood Count 8.9 X10*3/uL (4.8-10.8)
[2023-11-27] MEDS: Morphine Sulfate 2 MG/ML CARTRIDGE IVPUSH (06:37)
[2023-11-27] MEDS: Omeprazole 20 MG CAPSULE.DR PO ×2 (06:37→17:15)
[2023-11-27 06:38] LABS: VBG HCO3 34 mmol/L (22-26); VBG pCO2 38 mmHg; VBG pH 7.56 (7.32-7.43); VBG pO2 66 mmHg
[2023-11-27 06:57] LABS: Alanine Aminotransferase 11 U/L (0-31); Albumin Level 2.9 g/dL (3.5-5.0); Alkaline Phosphatase 98 U/L (39-117); Anion Gap 18 (12-20); Aspartate Amino Transferase 11 U/L (5-31); Bilirubin Direct 0.2 mg/dL (0.0-0.5); Bilirubin Total 0.4 mg/dL (0.0-1.0); Blood Urea Nitrogen 25 mg/dL (9-16); Calcium 8.3 mg/dL (8.4-10.2); Carbon Dioxide 30 mmol/L (22-29); Chloride 96 mmol/L (96-108); Creatinine Clr Calc Pharmacy 59.2; Estimated Glomerular Filt Rate > 60; Glucose Fasting 270 mg/dL (60-99); Magnesium 2.1 mg/dL (1.6-2.6); Potassium 3.6 mmol/L (3.3-5.1); Sodium 140 mmol/L (135-145)
[2023-11-27 07:23] LABS: Glucose, Whole Blood 276 mg/dL (60-115)
[2023-11-27] MEDS: allopurinoL 300 MG TABLET 150 MG PO (07:57)
[2023-11-27] MEDS: PARoxetine HCL 20 MG TABLET PO (07:58)
[2023-11-27] MEDS: Furosemide 40 MG TABLET PO ×2 (07:58→17:15)
[2023-11-27] MEDS: guaiFENesin DM 600/30 1 TAB TAB.ER.12H PO ×2 (07:58→21:30)
[2023-11-27] MEDS: Amiodarone HCL 200 MG TABLET PO (07:58)
[2023-11-27] MEDS: dilTIAZem HCL CD 240 MG CAP.ER.DEG 480 MG PO (07:59)
[2023-11-27] MEDS: Nicotine 14 MG PATCH.TD24 TRANSDERMA (07:59)
[2023-11-27] MEDS: Insulin Lispro 100 UNIT/ML 3 ML VIAL SUBCUT ×4 (08:00→21:30)
[2023-11-27] MEDS: Nystatin Oral Susp 500,000 UNIT/5 ML ORAL.SUSP 500000 UNIT PO ×2 (08:00→17:15)
[2023-11-27] MEDS: methylPREDNISolone Sod Succ 40 MG/ML VIAL 20 MG IVPUSH (08:00)
[2023-11-27] MEDS: 0.9 % Sodium Chloride Flush 3 ML SYRINGE IVFLUSH ×2 (08:01→17:15)
[2023-11-27] MEDS: Lidocaine 4 % Patch ADH..PATCH 1 PATCH TRANSDERMA (08:03)
[2023-11-27] MEDS: Fluticasone/Vilanterol 100/25 BLST.W.DEV 1 PUFF INHALE (08:10)
[2023-11-27] MEDS: Albuterol/Iprat 2.5/0.5MG 3 ML AMPUL.NEB INHALE ×4 (08:10→21:04)
--- NOTE | 2023-11-27 09:51 | HO.PM.IMPN ---
Subjective Subjective Date of Service: 11/27/23 Interval History: still sob Physical Exam Vital Signs: Vital Signs: Last Vital Signs Temp 97.5 F 11/27/23 08:00 Pulse 103 H 11/27/23 08:16 Resp 20 11/27/23 08:16 BP 118/60 11/27/23 08:00 Pulse Ox 95 11/27/23 08:00 O2 Del Method High Flow Nasal C annula 11/27/23 08:00 O2 Flow Rate 40 11/27/23 08:00 FiO2 50 11/27/23 08:00 Oxygen Flow Rate 2 11/10/23 07:30 BMI result Body Mass Index 35.0 Gen: NAD HEENT: sclera anicteric, moist mucus membranes Neck: supple Lungs: diffuse expiratory wheezing Heart: irregular, no murmurs Abd: soft, non-tender, non-distended Ext: no edema, LUE midline catheter Skin: warm/well-perfused, extensive bruising Neuro: alert and oriented x3, no focal findings Psych: appropriate affect Objective Data Active Medications Acetaminophen (Acetaminophen 325 Mg Tablet) 975 mg PO Q6H PRN PRN Reason: mild pain, headache or fever Last Admin: 11/25/23 09:15 Dose: 975 mg Documented By: RONALD Albuterol Sulfate (Albuterol Sulfate (0.083%) 2.5 Mg/3 Ml Vial.Neb) 2.5 mg INHALE Q2H PRN PRN Reason: Shortness of Breath/Wheezing Last Admin: 11/18/23 07:28 Dose: 2.5 mg Documented By: SORAYA Albuterol/Ipratropium (Albuterol/Iprat 2.5/0.5mg 3 Ml Ampul.Neb) 3 ml INHALE RQ4H WHILE AWAKE [facility] Last Admin: 11/27/23 08:10 Dose: 3 ml Documented By: NEYDA Allopurinol (Allopurinol 300 Mg Tablet) 150 mg PO DAILY [facility] Last Admin: 11/27/23 07:57 Dose: 150 mg Documented By: OLGA Amiodarone HCl (Amiodarone Hcl 200 Mg Tablet) 200 mg PO DAILY [facility] Last Admin: 11/27/23 07:58 Dose: 200 mg Documented By: OLGA Apixaban (Apixaban 5 Mg Tablet) 5 mg PO BID [facility] Last Admin: 11/17/23 08:53 Dose: 5 mg Documented By: MONFERICO Benzocaine (Throat Lozenge, Medicated Lozenge) 1 lozenge MUCOUS MEM Q2H PRN PRN Reason: Sore Throat Last Admin: 11/26/23 21:23 Dose: 1 lozenge Documented By: HUGO Diltiazem HCl (Diltiazem Hcl Cd 240 Mg Cap.Er.Deg) 480 mg PO DAILY [facility]; Protocol Last Admin: 11/27/23 07:59 Dose: 480 mg Documented By: OLGA Docusate Sodium (Docusate Sodium 100 Mg Capsule) 100 mg PO BID PRN PRN Reason: constipation Fluticasone/Vilanterol (Fluticasone/Vilanterol 100/25 Blst.W.Dev) 1 puff INHALE RDAILY [facility] Last Admin: 11/27/23 08:10 Dose: 1 puff Documented By: NEYDA Furosemide (Furosemide 40 Mg Tablet) 40 mg PO BID@0900,1800 [facility]; Protocol Last Admin: 11/27/23 07:58 Dose: 40 mg Documented By: OLGA Glucose (Glucose Gel 15 Gm Gel..Gram.) 15 gm PO Q15M PRN; Protocol PRN Reason: per Hypoglycemia Standing Ord. Guaifenesin/Dextromethorphan (Guaifenesin Dm 600/30 1 Tab Tab.Er.12h) 1 tab PO BID [facility] Last Admin: 11/27/23 07:58 Dose: 1 tab Documented By: OLGA Insulin Glargine (Insulin Glargine,Hum.Rec.Anlog 100 Unit/Ml 10 Ml Vial) 21 unit SUBCUT BEDTIME [facility] Last Admin: 11/26/23 21:10 Dose: 21 unit Documented By: HUGO Insulin Human Lispro (Insulin Lispro 100 Unit/Ml 3 Ml Vial) 0 unit SUBCUT QIDACHS [facility]; Protocol Last Admin: 11/27/23 08:00 Dose: 12 unit Documented By: OLGA Lidocaine (Lidocaine 4 % Patch Adh..Patch) 1 patch TRANSDERMA DAILY [facility]; Protocol Last Admin: 11/27/23 08:03 Dose: 1 patch Documented By: OLGA Methylprednisolone Sodium Succinate (Methylprednisolone Sod Succ 40 Mg/Ml Vial) 20 mg IVPUSH Q24H [facility] Last Admin: 11/27/23 08:00 Dose: 20 mg Documented By: OLGA Nicotine (Nicotine 14 Mg Patch.Td24) 14 mg TRANSDERMA DAILY [facility] Last Admin: 11/27/23 07:59 Dose: 14 mg Documented By: OLGA Nystatin (Nystatin Oral Susp 500,000 Unit/5 Ml Oral.Susp) 500,000 unit PO QID [facility]; Protocol Last Admin: 11/27/23 08:00 Dose: 500,000 unit Documented By: OLGA Omeprazole (Omeprazole 20 Mg Capsule.Dr) 20 mg PO BID@0630,1630 [facility] Last Admin: 11/27/23 06:37 Dose: 20 mg Documented By: HUGO Ondansetron HCl (Ondansetron Hcl 4 Mg/2 Ml Vial) 4 mg IVPUSH Q8H PRN PRN Reason: Nausea and Vomiting Last Admin: 11/12/23 20:05 Dose: 4 mg Documented By: BRAD Paroxetine HCl (Paroxetine Hcl 20 Mg Tablet) 20 mg PO DAILY@0900 [facility] Last Admin: 11/27/23 07:58 Dose: 20 mg Documented By: OLGA Sodium Chloride (0.9 % Sodium Chloride Flush 3 Ml Syringe) 3 ml IVFLUSH QSHIFT [facility] Last Admin: 11/27/23 08:01 Dose: 3 ml Documented By: OLGA Labs 11/27/23 06:27 11/27/23 06:27 Labs: Laboratory Results - last 24 hr 11/26/23 11/26/23 11/26/23 10:57 16:35 19:56 MCV MCH MCHC RDW Plt Count MPV Absolute Nucleated RBC Nucleated RBC % (auto) VBG pH VBG pCO2 VBG pO2 VBG HCO3 VBG O2 Saturation VBG Base Excess Anion Gap Estim Creat Clear Calc Estimated GFR POC Glucose 246 H 396 H* 214 H Fasting Glucose Calcium Magnesium Total Bilirubin Direct Bilirubin AST ALT Alkaline Phosphatase Total Protein Albumin 11/26/23 11/27/23 11/27/23 20:21 06:27 06:30 MCV 93.8 MCH 29.7 MCHC 31.6 RDW 16.8 H Plt Count 338 D MPV 10.3 Absolute Nucleated RBC 0.020 H Nucleated RBC % (auto) 0.2 VBG pH 7.56 H VBG pCO2 38 VBG pO2 66 VBG HCO3 34 H VBG O2 Saturation 95.0 VBG Base Excess 12.0 Anion Gap 18 Estim Creat Clear Calc 59.2 Estimated GFR > 60 POC Glucose 213 H Fasting Glucose 270 H Calcium 8.3 L Magnesium 2.1 Total Bilirubin 0.4 Direct Bilirubin 0.2 AST 11 ALT 11 Alkaline Phosphatase 98 Total Protein 6.0 L Albumin 2.9 L 11/27/23 07:15 MCV MCH MCHC RDW Plt Count MPV Absolute Nucleated RBC Nucleated RBC % (auto) VBG pH VBG pCO2 VBG pO2 VBG HCO3 VBG O2 Saturation VBG Base Excess Anion Gap Estim Creat Clear Calc Estimated GFR POC Glucose 276 H Fasting Glucose Calcium Magnesium Total Bilirubin Direct Bilirubin AST ALT Alkaline Phosphatase Total Protein Albumin Assessment and Plan (1) Aspiration pneumonia: Status: Acute Plan d29 78yo F with pAF on apixaban, COPD not on hO2, gout, HF with unknown EF, and DM2 presented with AMS, admitted for hypoxia due to CAP + COPD developed worsening hypoxia due to aspiration and intubated on 11/13/23 extubated 11/14/23 and stepped down to telemetry 11/15/23 developed LGIB + CHF/COPD exacerbations still on HFNC but gradually weaning ACTIVE ISSUES: acute hypoxic respiratory failure due to acute/chronic HFpEF and acute COPD exacerbation has developed contraction alkalosis and hypoK; changed IV furosemide gtt [started 11/20] to PO furosemide on 11/22; given acetazolamide 250 mg x 2 doses 11/24 anbd 11/25, much improved wean HFNC as tolerated and use CPAP as necessary for rescue. currently on 50->40 LPM + 70->60% fiO2 started IV methylprednisolone 11/19 and decreased from q12h to q24h 11/23. continue nebs. resp pathogen panel negative acute blood loss anemia due to LGIB holding Eliquis. GI consulted. Transfused 2 units 11/21 with good response in H+H; also got vit K. H+H now stable. Stopped octreotide. IV PPI changed to PO. DM2 with steroid-induced hyperglycemia increased doses of correction-dose lispro and glargine pancreatic abnormality as part of workup of bacteremia, CT abdomen and pelvis was done that showed abrupt change in size of pancreas with atrophy plus ductal dilatation be on pancreatic neck; also extra and intrahepatic biliary dilatation to level of ampulla noted -follow-up MRI obtained to rule out pancreatic mass: no masses but showed changing caliber of pancreatic duct with distal atrophy of pancreatic parenchyma, tortuosity and dilatation of the duct, underlying stricture was not excluded; distended gallbladder with sludge and small stones, common bile duct 1.4 cm without intraductal filling defects, moderate intrahepatic biliary ductal dilatation tjat may represent biliary dyskinesia. -no abdominal pain, normal LFTs; per GI no aggressive invasive procedures as pt asymptomatic TTE with no vegetation moderate protein/oscar malnutrition supplements RESOLVED ISSUES: aspiration pneumonia sepsis due to Enterococcus faecalis bacteremia [positive BCx 10/29, repeat BCx 11/01 and 11/12 negative] - azithro 10/30-11/04, vanco 10/30-10/31, ceftriaxone 10/31-11/01, pip-don 11/01- and again 11/12-11/22, dapto 11/06-11/12 - discussed with ID. Total 21d antibiotics from 11/01 completed - placed on erythromycin for gastric motility in ICU; d/c'ed - [employer] following; continue NDD2 solids + nectar liquids AF/RVR - was difficult to control and got diltiazem IV drip, digoxin IV, and amiodarone PO load. Stable on diltiazem 90 mg qid -> changed to 360 mg CD daily. Continue amiodarone. Currently in sinus tachycardia with abundant PACs; increased diltiazem to 480 mg CD daily on 11/22 - Eliquis on hold as above - TTE 11/04: LVEF 60-65%, normal right ventricular cavity size and systolic function, no obvious vegetation noted thrombocytopenia - likely due to infection; resolved hypoK - repleted hyperNa - resolved CHRONIC ISSUES: gout continue allopurinol mood disorder continue paroxetine CODE STATUS: per ICU attending, DNR/DNI, confirmed with pt and her daughter and reaffirmed 11/20 DISPO: STR per PT reason for continued hospitalization: on high flow Total time managing care of this patient today: 50 minutes. Quality Stroke Does the patient have a stroke diagnosis?: No VTE Prior VTE?: No VTE Risk Level:: Medical - moderate - high VTE Device Contraindication: Treatment Not Indicated VTE Drug Contraindication: N/A - Med Ordered
[2023-11-27 11:57] LABS: Glucose, Whole Blood 406 mg/dL (60-115)
[2023-11-27] MEDS: Insulin Lispro 100 UNIT/ML 3 ML VIAL 10 UNIT SUBCUT (12:17)
[2023-11-27] MEDS: oxyCODONE HCl Immed Release 5 MG TABLET PO ×3 (12:24→21:30)
[2023-11-27] MEDS: Throat Lozenge, Medicated LOZENGE 1 LOZENGE MUCOUS MEM ×3 (12:26→21:30)
--- NOTE | 2023-11-27 14:50 | MHC.SPEECHCO ---
Pt is growing increasingly frustrated that she can't have her prefered food items. She rejects PO brought to her. She wants [employer] and Cottage Cheese. MD ordered MBSS for tomorrow, unable to confirm but more likely in the mid afternoon (2-3pm). Will confirm tomorrow.
[2023-11-27 16:33] LABS: Glucose, Whole Blood 328 mg/dL (60-115)
[2023-11-27 21:10] LABS: Glucose, Whole Blood 224 mg/dL (60-115)
[2023-11-27] MEDS: Insulin Glargine,Hum.rec.anlog 100 UNIT/ML 10 ML VIAL 21 UNIT SUBCUT (21:31)
[2023-11-28] VITALS (14 sets, daily range): BP systolic 116–144; BP diastolic 55–77; PULSE 18–144; RESP 18–26; TEMP 36.2–36.5; O2SAT 86–97; BMI 35.2
[2023-11-28] MEDS: Omeprazole 20 MG CAPSULE.DR PO ×2 (05:36→17:03)
[2023-11-28 06:50] LABS: Hematocrit 33.7 % (37.0-47.0); Hemoglobin 11.1 g/dl (12.0-16.0); Mean Corpuscular HGB Conc 32.9 g/dl (31.0-35.0); Mean Corpuscular Volume 91.1 fL (80.0-98.0); NRBC Pct Auto 0.5 /100WBC (0.0-0.2); Platelet Count 360 X10*3/uL (160-400); Red Cell Distribution Width 16.4 % (11.0-16.0); White Blood Count 12.2 X10*3/uL (4.8-10.8)
[2023-11-28 07:09] LABS: Anion Gap 13 (12-20); Blood Urea Nitrogen 27 mg/dL (9-16); Calcium 8.7 mg/dL (8.4-10.2); Carbon Dioxide 34 mmol/L (22-29); Chloride 96 mmol/L (96-108); Creatinine Clr Calc Pharmacy 63.8; Estimated Glomerular Filt Rate > 60; Glucose Fasting 133 mg/dL (60-99); Potassium 3.1 mmol/L (3.3-5.1); Sodium 140 mmol/L (135-145)
[2023-11-28] MEDS: Albuterol/Iprat 2.5/0.5MG 3 ML AMPUL.NEB INHALE ×4 (07:24→19:52)
[2023-11-28] MEDS: Fluticasone/Vilanterol 100/25 BLST.W.DEV 1 PUFF INHALE (07:25)
[2023-11-28] MEDS: Potassium Chloride/H20 10 MEQ/100 ML PIGGYBACK 100 MEQ IV ×4 (07:35→12:03)
[2023-11-28 07:47] LABS: Glucose, Whole Blood 138 mg/dL (60-115)
[2023-11-28] MEDS: oxyCODONE HCl Immed Release 5 MG TABLET PO ×3 (07:49→21:19)
[2023-11-28] MEDS: 0.9 % Sodium Chloride Flush 3 ML SYRINGE IVFLUSH ×4 (09:07→20:39)
[2023-11-28] MEDS: methylPREDNISolone Sod Succ 40 MG/ML VIAL 20 MG IVPUSH (09:14)
[2023-11-28] MEDS: Furosemide 40 MG TABLET PO ×2 (09:15→17:03)
[2023-11-28] MEDS: Amiodarone HCL 200 MG TABLET PO (09:15)
[2023-11-28] MEDS: Insulin Lispro 100 UNIT/ML 3 ML VIAL SUBCUT ×5 (09:15→21:22)
[2023-11-28] MEDS: dilTIAZem HCL CD 240 MG CAP.ER.DEG 480 MG PO (09:15)
[2023-11-28] MEDS: allopurinoL 300 MG TABLET 150 MG PO (09:15)
[2023-11-28] MEDS: guaiFENesin DM 600/30 1 TAB TAB.ER.12H PO ×2 (09:15→20:38)
[2023-11-28] MEDS: PARoxetine HCL 20 MG TABLET PO (09:15)
[2023-11-28] MEDS: Nystatin Oral Susp 500,000 UNIT/5 ML ORAL.SUSP 500000 UNIT PO ×3 (09:15→20:38)
[2023-11-28] MEDS: Nicotine 14 MG PATCH.TD24 TRANSDERMA (09:16)
[2023-11-28] MEDS: Lidocaine 4 % Patch ADH..PATCH 1 PATCH TRANSDERMA (09:16)
--- NOTE | 2023-11-28 09:44 | MHC.CM.PN ---
EMR REVIEWD, PT REMAINS ON HI-FLOW O2, ANTIC PT WILL NEED STR, CM WILL CON'T TO FOLLOW DC NEEDS.
--- NOTE | 2023-11-28 10:21 | HO.PM.IMPN ---
Subjective Subjective Date of Service: 11/28/23 Interval History: failed weaning attempt Physical Exam Vital Signs: Vital Signs: Last Vital Signs Temp 97.6 F 11/28/23 07:49 Pulse 90 11/28/23 07:49 Resp 24 H 11/28/23 09:14 BP 133/73 11/28/23 07:49 Pulse Ox 86 L 11/28/23 07:49 O2 Del Method High Flow Nasal C annula 11/28/23 07:49 O2 Flow Rate 40 11/27/23 12:00 FiO2 40 11/28/23 03:53 Oxygen Flow Rate 2 11/10/23 07:30 BMI result Body Mass Index 35.2 Gen: NAD HEENT: sclera anicteric, moist mucus membranes Neck: supple Lungs: diffuse expiratory wheezing Heart: irregular, no murmurs Abd: soft, non-tender, non-distended Ext: no edema, LUE midline catheter Skin: warm/well-perfused, extensive bruising Neuro: alert and oriented x3, no focal findings Psych: appropriate affect Objective Data Active Medications Acetaminophen (Acetaminophen 325 Mg Tablet) 975 mg PO Q6H PRN PRN Reason: mild pain, headache or fever Last Admin: 11/25/23 09:15 Dose: 975 mg Documented By: RONALD Albuterol Sulfate (Albuterol Sulfate (0.083%) 2.5 Mg/3 Ml Vial.Neb) 2.5 mg INHALE Q2H PRN PRN Reason: Shortness of Breath/Wheezing Last Admin: 11/18/23 07:28 Dose: 2.5 mg Documented By: SORAYA Albuterol/Ipratropium (Albuterol/Iprat 2.5/0.5mg 3 Ml Ampul.Neb) 3 ml INHALE RQ4H WHILE AWAKE [facility] Last Admin: 11/28/23 07:24 Dose: 3 ml Documented By: SORAYA Allopurinol (Allopurinol 300 Mg Tablet) 150 mg PO DAILY [facility] Last Admin: 11/28/23 09:15 Dose: 150 mg Documented By: OLGA Amiodarone HCl (Amiodarone Hcl 200 Mg Tablet) 200 mg PO DAILY [facility] Last Admin: 11/28/23 09:15 Dose: 200 mg Documented By: OLGA Apixaban (Apixaban 5 Mg Tablet) 5 mg PO BID [facility] Last Admin: 11/17/23 08:53 Dose: 5 mg Documented By: MONFERICO Benzocaine (Throat Lozenge, Medicated Lozenge) 1 lozenge MUCOUS MEM Q2H PRN PRN Reason: Sore Throat Last Admin: 11/27/23 21:30 Dose: 1 lozenge Documented By: HUGO Diltiazem HCl (Diltiazem Hcl Cd 240 Mg Cap.Er.Deg) 480 mg PO DAILY [facility]; Protocol Last Admin: 11/28/23 09:15 Dose: 480 mg Documented By: OLGA Docusate Sodium (Docusate Sodium 100 Mg Capsule) 100 mg PO BID PRN PRN Reason: constipation Fluticasone/Vilanterol (Fluticasone/Vilanterol 100/25 Blst.W.Dev) 1 puff INHALE RDAILY [facility] Last Admin: 11/28/23 07:25 Dose: 1 puff Documented By: SORAYA Furosemide (Furosemide 40 Mg Tablet) 40 mg PO BID@0900,1800 [facility]; Protocol Last Admin: 11/28/23 09:15 Dose: 40 mg Documented By: OLGA Glucose (Glucose Gel 15 Gm Gel..Gram.) 15 gm PO Q15M PRN; Protocol PRN Reason: per Hypoglycemia Standing Ord. Guaifenesin/Dextromethorphan (Guaifenesin Dm 600/30 1 Tab Tab.Er.12h) 1 tab PO BID [facility] Last Admin: 11/28/23 09:15 Dose: 1 tab Documented By: OLGA Potassium Chloride (Potassium Chloride/H20) 10 meq in 100 mls @ 100 mls/hr IV Q1H [facility] Stop: 11/28/23 11:14 Last Admin: 11/28/23 10:21 Dose: 100 mls/hr Documented By: OLGA Insulin Glargine (Insulin Glargine,Hum.Rec.Anlog 100 Unit/Ml 10 Ml Vial) 21 unit SUBCUT BEDTIME [facility] Last Admin: 11/27/23 21:31 Dose: 21 unit Documented By: HUGO Insulin Human Lispro (Insulin Lispro 100 Unit/Ml 3 Ml Vial) 0 unit SUBCUT QIDACHS [facility]; Protocol Last Admin: 11/28/23 09:15 Dose: 2 unit Documented By: OLGA Lidocaine (Lidocaine 4 % Patch Adh..Patch) 1 patch TRANSDERMA DAILY [facility]; Protocol Last Admin: 11/28/23 09:16 Dose: 1 patch Documented By: OLGA Methylprednisolone Sodium Succinate (Methylprednisolone Sod Succ 40 Mg/Ml Vial) 20 mg IVPUSH Q24H [facility] Last Admin: 11/28/23 09:14 Dose: 20 mg Documented By: OLGA Nicotine (Nicotine 14 Mg Patch.Td24) 14 mg TRANSDERMA DAILY [facility] Last Admin: 11/28/23 09:16 Dose: 14 mg Documented By: OLGA Nystatin (Nystatin Oral Susp 500,000 Unit/5 Ml Oral.Susp) 500,000 unit PO QID [facility]; Protocol Last Admin: 11/28/23 09:15 Dose: 500,000 unit Documented By: OLGA Omeprazole (Omeprazole 20 Mg Capsule.Dr) 20 mg PO BID@0630,1630 [facility] Last Admin: 11/28/23 05:36 Dose: 20 mg Documented By: HUGO Ondansetron HCl (Ondansetron Hcl 4 Mg/2 Ml Vial) 4 mg IVPUSH Q8H PRN PRN Reason: Nausea and Vomiting Last Admin: 11/12/23 20:05 Dose: 4 mg Documented By: BRAD Oxycodone HCl (Oxycodone Hcl Immed Release 5 Mg Tablet) 5 mg PO Q4H PRN PRN Reason: Pain, Moderate(Pain Scale 4-6) Last Admin: 11/28/23 07:49 Dose: 5 mg Documented By: OLGA Paroxetine HCl (Paroxetine Hcl 20 Mg Tablet) 20 mg PO DAILY@0900 [facility] Last Admin: 11/28/23 09:15 Dose: 20 mg Documented By: OLGA Sodium Chloride (0.9 % Sodium Chloride Flush 3 Ml Syringe) 3 ml IVFLUSH QSHIFT [facility] Last Admin: 11/28/23 09:07 Dose: 3 ml Documented By: OLGA Labs 11/28/23 06:46 11/28/23 06:46 Labs: Laboratory Results - last 24 hr 11/27/23 11/27/23 11/27/23 11:46 16:22 21:02 MCV MCH MCHC RDW Plt Count MPV Absolute Nucleated RBC Nucleated RBC % (auto) Anion Gap Estim Creat Clear Calc Estimated GFR POC Glucose 406 H* 328 H 224 H Fasting Glucose Calcium 11/28/23 11/28/23 06:46 07:35 MCV 91.1 MCH 30.0 MCHC 32.9 RDW 16.4 H Plt Count 360 MPV 10.0 Absolute Nucleated RBC 0.060 H Nucleated RBC % (auto) 0.5 H Anion Gap 13 Estim Creat Clear Calc 63.8 Estimated GFR > 60 POC Glucose 138 H Fasting Glucose 133 H Calcium 8.7 Assessment and Plan (1) Aspiration pneumonia: Status: Acute Plan 78yo F with pAF on apixaban, COPD not on hO2, gout, HF with unknown EF, and DM2 presented with AMS, admitted for hypoxia due to CAP + COPD developed worsening hypoxia due to aspiration and intubated on 11/13/23 extubated 11/14/23 and stepped down to telemetry 11/15/23 developed LGIB + CHF/COPD exacerbations still on HFNC but gradually weaning ACTIVE ISSUES: acute hypoxic respiratory failure due to acute/chronic HFpEF and acute COPD exacerbation has developed contraction alkalosis and hypoK; changed IV furosemide gtt [started 11/20] to PO furosemide on 11/22; given acetazolamide 250 mg x 2 doses 11/24 anbd 11/25, much improved wean HFNC as tolerated and use CPAP as necessary for rescue. continue to wean, but unable to get off hfnc started IV methylprednisolone 11/19 and decreased from q12h to q24h 11/23. continue nebs. resp pathogen panel negative acute blood loss anemia due to LGIB holding Eliquis. GI consulted. Transfused 2 units 11/21 with good response in H+H; also got vit K. H+H now stable. Stopped octreotide. IV PPI changed to PO. DM2 with steroid-induced hyperglycemia increased doses of correction-dose lispro and glargine hypokalemia acute, replace, monitor pancreatic abnormality as part of workup of bacteremia, CT abdomen and pelvis was done that showed abrupt change in size of pancreas with atrophy plus ductal dilatation be on pancreatic neck; also extra and intrahepatic biliary dilatation to level of ampulla noted -follow-up MRI obtained to rule out pancreatic mass: no masses but showed changing caliber of pancreatic duct with distal atrophy of pancreatic parenchyma, tortuosity and dilatation of the duct, underlying stricture was not excluded; distended gallbladder with sludge and small stones, common bile duct 1.4 cm without intraductal filling defects, moderate intrahepatic biliary ductal dilatation tjat may represent biliary dyskinesia. -no abdominal pain, normal LFTs; per GI no aggressive invasive procedures as pt asymptomatic TTE with no vegetation moderate protein/oscar malnutrition supplements RESOLVED ISSUES: aspiration pneumonia sepsis due to Enterococcus faecalis bacteremia [positive BCx 10/29, repeat BCx 11/01 and 11/12 negative] - azithro 10/30-11/04, vanco 10/30-10/31, ceftriaxone 10/31-11/01, pip-don 11/01- and again 11/12-11/22, dapto 11/06-11/12 - discussed with ID. Total 21d antibiotics from 11/01 completed - placed on erythromycin for gastric motility in ICU; d/c'ed - [employer]ER following; continue NDD2 solids + nectar liquids AF/RVR - was difficult to control and got diltiazem IV drip, digoxin IV, and amiodarone PO load. Stable on diltiazem 90 mg qid -> changed to 360 mg CD daily. Continue amiodarone. Currently in sinus tachycardia with abundant PACs; increased diltiazem to 480 mg CD daily on 11/22 - Eliquis on hold as above - TTE 11/04: LVEF 60-65%, normal right ventricular cavity size and systolic function, no obvious vegetation noted thrombocytopenia - likely due to infection; resolved hypoK - repleted hyperNa - resolved CHRONIC ISSUES: gout continue allopurinol mood disorder continue paroxetine CODE STATUS: per ICU attending, DNR/DNI, confirmed with pt and her daughter and reaffirmed 11/20 DISPO: STR per PT reason for continued hospitalization: on high flow Total time managing care of this patient today: 50 minutes. Quality Stroke Does the patient have a stroke diagnosis?: No VTE Prior VTE?: No VTE Risk Level:: Medical - moderate - high VTE Device Contraindication: Treatment Not Indicated VTE Drug Contraindication: N/A - Med Ordered
--- NOTE | 2023-11-28 11:07 | MHC.CLN ---
F/U PT IS MODERATELY MALNOURISHED PO INTAKE 75-100% DIET RX: 2000DM DIET GRD M/S WITH NT LIQ PER [employer] CLERK SEE [employer] CLERK NOTE DATED 11/26 Pt is growing increasingly frustrated that she can't have her prefered food items. She rejects PO brought to her. She wants Mac and Cheeze and Cottage Cheese. ordered MBSS for tomorrow PT RECEIVING GELATEIN TID WITH MEALS TO INCREASE PO PROTEIN INTAKE HOWEVER PT REFUSING PER PDA RECOMMEND D/C GELATEIN AND CHANGE SUPPLEMENT TO ENSURE MAX BID TO PROVIDE 300KCALS, 60G PROTEIN MONITOR PO INTAKE AND ENCOURAGE SUPPLEMENTS
[2023-11-28 11:35] LABS: Glucose, Whole Blood 207 mg/dL (60-115)
--- NOTE | 2023-11-28 13:35 | MHC.SLORD ---
Speech Language Pathology Order Status: MBSS deferred per Dr. Avendaño d/t patient's increasing respiratory needs. Will plan for or Sunday if appropriate.
[2023-11-28 16:56] LABS: Glucose, Whole Blood 447 mg/dL (60-115)
[2023-11-28 20:46] LABS: Glucose, Whole Blood 363 mg/dL (60-115)
[2023-11-28] MEDS: Insulin Glargine,Hum.rec.anlog 100 UNIT/ML 10 ML VIAL 21 UNIT SUBCUT (21:22)
[2023-11-29] VITALS (16 sets, daily range): BP systolic 131–159; BP diastolic 51–76; PULSE 58–126; RESP 16–22; TEMP 36.1–37.1; O2SAT 91–97; BMI 34.8
[2023-11-29] MEDS: oxyCODONE HCl Immed Release 5 MG TABLET PO ×4 (01:41→21:23)
[2023-11-29] MEDS: Omeprazole 20 MG CAPSULE.DR PO ×2 (05:30→16:44)
[2023-11-29 06:21] LABS: Hematocrit 33.6 % (37.0-47.0); Hemoglobin 11.2 g/dl (12.0-16.0); Mean Corpuscular HGB Conc 33.3 g/dl (31.0-35.0); Mean Corpuscular Hemoglobin 30.3 pg (27.0-33.0); Mean Corpuscular Volume 90.8 fL (80.0-98.0); Mean Platelet Volume 10.4 fL (9.4-12.3); NRBC Pct Auto 0.8 /100WBC (0.0-0.2); Platelet Count 379 X10*3/uL (160-400); Red Cell Distribution Width 16.3 % (11.0-16.0); White Blood Count 12.7 X10*3/uL (4.8-10.8)
[2023-11-29 06:34] LABS: Anion Gap 15 (12-20); Blood Urea Nitrogen 36 mg/dL (9-16); Calcium 8.7 mg/dL (8.4-10.2); Carbon Dioxide 30 mmol/L (22-29); Chloride 97 mmol/L (96-108); Creatinine Clr Calc Pharmacy 68.6; Estimated Glomerular Filt Rate > 60; Glucose Fasting 138 mg/dL (60-99); Potassium 3.1 mmol/L (3.3-5.1); Sodium 139 mmol/L (135-145)
[2023-11-29 06:41] LABS: B Type Natriuretic Peptide 42 pg/mL (<100)
[2023-11-29 07:51] LABS: Glucose, Whole Blood 140 mg/dL (60-115)
[2023-11-29] MEDS: Albuterol/Iprat 2.5/0.5MG 3 ML AMPUL.NEB INHALE ×4 (07:53→19:41)
[2023-11-29] MEDS: Fluticasone/Vilanterol 100/25 BLST.W.DEV 1 PUFF INHALE (07:53)
[2023-11-29] MEDS: methylPREDNISolone Sod Succ 40 MG/ML VIAL 20 MG IVPUSH (09:16)
[2023-11-29] MEDS: 0.9 % Sodium Chloride Flush 3 ML SYRINGE IVFLUSH ×3 (09:16→21:24)
[2023-11-29] MEDS: PARoxetine HCL 20 MG TABLET PO (09:17)
[2023-11-29] MEDS: allopurinoL 300 MG TABLET 150 MG PO (09:17)
[2023-11-29] MEDS: Furosemide 40 MG TABLET PO (09:17)
[2023-11-29] MEDS: Insulin Lispro 100 UNIT/ML 3 ML VIAL SUBCUT ×4 (09:17→21:24)
[2023-11-29] MEDS: Amiodarone HCL 200 MG TABLET PO (09:17)
[2023-11-29] MEDS: Acetaminophen 325 MG TABLET 975 MG PO (09:18)
[2023-11-29] MEDS: guaiFENesin DM 600/30 1 TAB TAB.ER.12H PO ×2 (09:18→21:24)
[2023-11-29] MEDS: dilTIAZem HCL CD 240 MG CAP.ER.DEG 480 MG PO (09:18)
[2023-11-29] MEDS: Nystatin Oral Susp 500,000 UNIT/5 ML ORAL.SUSP 500000 UNIT PO ×4 (09:18→21:23)
[2023-11-29] MEDS: Nicotine 14 MG PATCH.TD24 TRANSDERMA (09:19)
[2023-11-29] MEDS: Lidocaine 4 % Patch ADH..PATCH 1 PATCH TRANSDERMA (09:20)
--- NOTE | 2023-11-29 10:59 | P.PNIM_ITS ---
Subjective Subjective Date of Service: 11/29/23 Interval History: seen and evaluated this morning feels comfrotable while sitting, on iHigh flow O2 denies fever or chills Physical Exam 2 Vital Signs: Vital Signs: Last Vital Signs Temp 97.3 F 11/29/23 08:00 Pulse 126 H 11/29/23 08:00 Resp 20 11/29/23 08:00 BP 136/62 11/29/23 08:00 Pulse Ox 94 11/29/23 08:00 O2 Del Method Room Air 11/29/23 08:00 O2 Flow Rate 40 11/28/23 20:00 FiO2 50 11/28/23 20:00 Oxygen Flow Rate 2 11/10/23 07:30 BMI result Body Mass Index 34.8 Const: Other: Constitutional : Awake, interactive, in mild distress Neck : Normal inspection, Supple Cardiovascular : RRR, no JVP, trace lower extremity edema, tachycardia Respiratory : good bilateral air entry, no crackles, wheezes or rhonchi Gastrointestinal: soft, lax, Normal bowel sounds, Non tender Skin : Warm, Dry Neurological : Alert & oriented x3, No focal deficit Objective Data Active Medications Acetaminophen (Acetaminophen 325 Mg Tablet) 975 mg PO Q6H PRN PRN Reason: mild pain, headache or fever Last Admin: 11/29/23 09:18 Dose: 975 mg Documented By: RONALD Albuterol Sulfate (Albuterol Sulfate (0.083%) 2.5 Mg/3 Ml Vial.Neb) 2.5 mg INHALE Q2H PRN PRN Reason: Shortness of Breath/Wheezing Last Admin: 11/18/23 07:28 Dose: 2.5 mg Documented By: SORAYA Albuterol/Ipratropium (Albuterol/Iprat 2.5/0.5mg 3 Ml Ampul.Neb) 3 ml INHALE RQ4H WHILE AWAKE [facility] Last Admin: 11/29/23 07:53 Dose: 3 ml Documented By: ADEOLA Allopurinol (Allopurinol 300 Mg Tablet) 150 mg PO DAILY [facility] Last Admin: 11/29/23 09:17 Dose: 150 mg Documented By: RONALD Amiodarone HCl (Amiodarone Hcl 200 Mg Tablet) 200 mg PO DAILY [facility] Last Admin: 11/29/23 09:17 Dose: 200 mg Documented By: RONALD Apixaban (Apixaban 5 Mg Tablet) 5 mg PO BID [facility] Last Admin: 11/17/23 08:53 Dose: 5 mg Documented By: SAMIFERICO Benzocaine (Throat Lozenge, Medicated Lozenge) 1 lozenge MUCOUS MEM Q2H PRN PRN Reason: Sore Throat Last Admin: 11/27/23 21:30 Dose: 1 lozenge Documented By: HUGO Diltiazem HCl (Diltiazem Hcl Cd 240 Mg Cap.Er.Deg) 480 mg PO DAILY [facility]; Protocol Last Admin: 11/29/23 09:18 Dose: 480 mg Documented By: RONALD Docusate Sodium (Docusate Sodium 100 Mg Capsule) 100 mg PO BID PRN PRN Reason: constipation Fluticasone/Vilanterol (Fluticasone/Vilanterol 100/25 Blst.W.Dev) 1 puff INHALE RDAILY [facility] Last Admin: 11/29/23 07:53 Dose: 1 puff Documented By: ADEOLA Furosemide (Furosemide 40 Mg/4 Ml Vial) 40 mg IVPUSH BID@0900,1800 [facility]; Protocol Glucose (Glucose Gel 15 Gm Gel..Gram.) 15 gm PO Q15M PRN; Protocol PRN Reason: per Hypoglycemia Standing Ord. Guaifenesin/Dextromethorphan (Guaifenesin Dm 600/30 1 Tab Tab.Er.12h) 1 tab PO BID [facility] Last Admin: 11/29/23 09:18 Dose: 1 tab Documented By: RONALD Insulin Glargine (Insulin Glargine,Hum.Rec.Anlog 100 Unit/Ml 10 Ml Vial) 21 unit SUBCUT BEDTIME [facility] Last Admin: 11/28/23 21:22 Dose: 21 unit Documented By: ALEXANDRIA Insulin Human Lispro (Insulin Lispro 100 Unit/Ml 3 Ml Vial) 0 unit SUBCUT QIDACHS [facility]; Protocol Last Admin: 11/29/23 09:17 Dose: 2 unit Documented By: RONALD Lidocaine (Lidocaine 4 % Patch Adh..Patch) 1 patch TRANSDERMA DAILY [facility]; Protocol Last Admin: 11/29/23 09:20 Dose: 1 patch Documented By: RONALD Methylprednisolone Sodium Succinate (Methylprednisolone Sod Succ 40 Mg/Ml Vial) 20 mg IVPUSH Q24H [facility] Last Admin: 11/29/23 09:16 Dose: 20 mg Documented By: RONALD Nicotine (Nicotine 14 Mg Patch.Td24) 14 mg TRANSDERMA DAILY [facility] Last Admin: 11/29/23 09:19 Dose: 14 mg Documented By: RONALD Nystatin (Nystatin Oral Susp 500,000 Unit/5 Ml Oral.Susp) 500,000 unit PO QID [facility]; Protocol Last Admin: 11/29/23 09:18 Dose: 500,000 unit Documented By: RONALD Omeprazole (Omeprazole 20 Mg Capsule.Dr) 20 mg PO BID@0630,1630 [facility] Last Admin: 11/29/23 05:30 Dose: 20 mg Documented By: ALEXANDRIA Ondansetron HCl (Ondansetron Hcl 4 Mg/2 Ml Vial) 4 mg IVPUSH Q8H PRN PRN Reason: Nausea and Vomiting Last Admin: 11/12/23 20:05 Dose: 4 mg Documented By: BRAD Oxycodone HCl (Oxycodone Hcl Immed Release 5 Mg Tablet) 5 mg PO Q4H PRN PRN Reason: Pain, Moderate(Pain Scale 4-6) Last Admin: 11/29/23 09:18 Dose: 5 mg Documented By: RONALD Paroxetine HCl (Paroxetine Hcl 20 Mg Tablet) 20 mg PO DAILY@0900 [facility] Last Admin: 11/29/23 09:17 Dose: 20 mg Documented By: RONALD Sodium Chloride (0.9 % Sodium Chloride Flush 3 Ml Syringe) 3 ml IVFLUSH QSHIFT [facility] Last Admin: 11/29/23 09:16 Dose: 3 ml Documented By: RONALD Labs 11/29/23 06:11 11/29/23 06:11 Labs: Laboratory Results - last 24 hr 11/28/23 11/28/23 11/28/23 11:27 16:45 20:42 MCV MCH MCHC RDW Plt Count MPV Absolute Nucleated RBC Nucleated RBC % (auto) Anion Gap Estim Creat Clear Calc Estimated GFR POC Glucose 207 H 447 H* 363 H* Fasting Glucose Calcium B-Natriuretic Peptide 11/29/23 11/29/23 06:11 07:27 MCV 90.8 MCH 30.3 MCHC 33.3 RDW 16.3 H Plt Count 379 MPV 10.4 Absolute Nucleated RBC 0.100 H Nucleated RBC % (auto) 0.8 H Anion Gap 15 Estim Creat Clear Calc 68.6 Estimated GFR > 60 POC Glucose 140 H Fasting Glucose 138 H Calcium 8.7 B-Natriuretic Peptide 42 Assessment and Plan (1) Acute on chronic anemia: Status: Acute (2) Acute hypoxemic respiratory failure: Status: Acute Plan 78yo F with pAF on apixaban, COPD not on hO2, gout, HF with unknown EF, and DM2. presented with AMS, admitted for hypoxia due to CAP + COPD. developed worsening hypoxia due to aspiration and intubated on 11/13/23 . extubated 11/14/23 and stepped down to telemetry 11/15/23. developed LGIB + CHF/COPD exacerbations. still on HFNC but gradually weaning ACTIVE ISSUES: acute hypoxic respiratory failure due to acute/chronic HFpEF and acute COPD exacerbation restart IV Lasix wean HFNC as tolerated use CPAP as necessary for rescue and bedtime Continue IV methylprednisolone 11/19 and decreased to q24h 11/23. continue nebs Pulm following acute blood loss anemia due to LGIB holding Eliquis. GI rec conservative measures Transfused 2 units 11/21 with good response in H+H; also got vit K. H+H stable. Stopped octreotide. IV PPI changed to PO. DM2 with steroid-induced hyperglycemia increased doses of correction-dose lispro and glargine hypokalemia acute, replace, monitor pancreatic abnormality as part of workup of bacteremia, CT abdomen and pelvis was done that showed abrupt change in size of pancreas with atrophy plus ductal dilatation be on pancreatic neck; also extra and intrahepatic biliary dilatation to level of ampulla noted -follow-up MRI obtained to rule out pancreatic mass: no masses but showed changing caliber of pancreatic duct with distal atrophy of pancreatic parenchyma, tortuosity and dilatation of the duct, underlying stricture was not excluded; distended gallbladder with sludge and small stones, common bile duct 1.4 cm without intraductal filling defects, moderate intrahepatic biliary ductal dilatation tjat may represent biliary dyskinesia. -no abdominal pain, normal LFTs; per GI no aggressive invasive procedures as pt asymptomatic TTE with no vegetation moderate protein/oscar malnutrition supplements RESOLVED ISSUES: aspiration pneumonia sepsis due to Enterococcus faecalis bacteremia [positive BCx 10/29, repeat BCx 11/01 and 11/12 negative] azithro 10/30-11/04, vanco 10/30-10/31, ceftriaxone 10/31-11/01, pip-don 11/01- and again 11/12-11/22, dapto 11/06-11/12 discussed with ID. Total 21d antibiotics from 11/01 completed [employer]ENT[employer] following; continue NDD2 solids + nectar liquids AF/RVR was difficult to control and got diltiazem IV drip, digoxin IV, and amiodarone PO load TTE 11/04: LVEF 60-65%, normal right ventricular cavity size and systolic function, no obvious vegetation noted Still running high at 120s on diltiazem 480 mg CD daily Continue amiodarone. Currently in sinus tachycardia with abundant PACs; increased diltiazem to 480 mg CD daily on 11/22 Eliquis on hold as above thrombocytopenia likely due to infection; resolved hyperNa resolved CHRONIC ISSUES: gout continue allopurinol mood disorder continue paroxetine CODE STATUS: per ICU attending, DNR/DNI, confirmed with pt and her daughter and reaffirmed 11/20 DISPO: STR per PT reason for continued hospitalization: on high flow requiring weaning down as tolerated Quality Stroke Does the patient have a stroke diagnosis?: No VTE Prior VTE?: No VTE Risk Level:: Medical - moderate - high VTE Device Contraindication: Treatment Not Indicated VTE Drug Contraindication: N/A - Med Ordered
[2023-11-29 11:50] LABS: Glucose, Whole Blood 290 mg/dL (60-115)
[2023-11-29] MEDS: Furosemide 40 MG/4 ML VIAL IVPUSH ×2 (11:57→16:45)
--- NOTE | 2023-11-29 11:58 | PM.PNCARD ---
Subjective Subjective Date of Service: 11/29/23 Interval history: Seen examined at bedside. Has been in the hospital for long time for aspiration pneumonia and COPD. She was noticed to have atrial fibrillation previously. Telemetry currently is showing multifocal atrial tachycardia. She is on amiodarone as well as Cardizem currently. Eliquis is on hold due to bleeding. Physical Exam Vital Signs: Last Vital Signs Temp 97.3 F 11/29/23 08:00 Pulse 67 11/29/23 11:16 Resp 20 11/29/23 11:16 BP 136/62 11/29/23 08:00 Pulse Ox 94 11/29/23 08:00 O2 Del Method Room Air 11/29/23 08:00 O2 Flow Rate 40 11/28/23 20:00 FiO2 50 11/28/23 20:00 Oxygen Flow Rate 2 11/10/23 07:30 BMI result Body Mass Index 34.8 GENERAL APPEARANCE: Short of breath, on high-flow oxygen. NECK: no carotid bruit, no significant jugular venous distention. SKIN: no suspicious lesions, warm and dry. HEART: no murmurs, irregular rate and rhythm. Tachycardic. LUNGS: Crackles left lung. ABDOMEN: soft, nontender. EXTREMITIES: no edema. PERIPHERAL PULSES: equal. NEUROLOGIC: No gross deficits, AAO X 3 Objective Labs and Meds 11/29/23 06:11 11/29/23 06:11 Lab results: Laboratory Results - last 24 hr 11/28/23 11/28/23 11/29/23 16:45 20:42 06:11 WBC 12.7 H RBC 3.70 L Hgb 11.2 L Hct 33.6 L MCV 90.8 MCH 30.3 MCHC 33.3 RDW 16.3 H Plt Count 379 MPV 10.4 Absolute Nucleated RBC 0.100 H Nucleated RBC % (auto) 0.8 H Sodium 139 Potassium 3.1 L Chloride 97 Carbon Dioxide 30 H Anion Gap 15 BUN 36 H Creatinine 0.73 Estim Creat Clear Calc 68.6 Estimated GFR > 60 POC Glucose 447 H* 363 H* Fasting Glucose 138 H Calcium 8.7 B-Natriuretic Peptide 42 11/29/23 11/29/23 07:27 11:44 WBC RBC Hgb Hct MCV MCH MCHC RDW Plt Count MPV Absolute Nucleated RBC Nucleated RBC % (auto) Sodium Potassium Chloride Carbon Dioxide Anion Gap BUN Creatinine Estim Creat Clear Calc Estimated GFR POC Glucose 140 H 290 H Fasting Glucose Calcium B-Natriuretic Peptide Imaging Radiologist's impression: Impressions Chest X-Ray 11/29/23 08:20 IMPRESSION: Diffuse bilateral airspace opacities, slightly worse in the left midlung. Progress Note: A&P Assessment and plan (1) Multifocal atrial tachycardia: Status: Acute Plan 78 year female with respiratory failure due to pneumonia as well as COPD. Chest x-ray is showing bilateral infiltrates with differential of congestive heart failure versus ARDS. Her BNP is 42 and she does not have any obvious JVD on examination. I think she likely has ARDS. Gentle diuresis and repeating the chest x-ray is a possibility to see if his infiltrative change because then there is some heart failure present but I think it is unlikely. Continues to be on high-flow oxygen. She has tachycardia and by telemetry currently she has multifocal atrial tachycardia. Eliquis can stay on hold for now. Difficult to say that previous EKG rhythms were atrial fibrillation or were multifocal atrial tachycardia all along. With her long history MAT quite possible 2. In any case currently she is tachycardic but also is requiring significant oxygen and is under lot of stress. She is on amiodarone 200 mg and Cardizem 480 mg daily. The Cardizem dose is quite high but she continues to be quite tachycardic. She is denying any palpitations and appears to be not symptomatic from tachycardia currently. If she continues to be tachycardic then beta-blockers can be tried but in that situation I would advise that we cut the Cardizem to 240 mg and not continue it at a very high dose. Complex patient and we will be available for any advice. Thank you for allowing me to participate in the care of your patient. Please feel free to contact me if you have any questions. Time Spent With Patient Time: Total time managing care of this patient today ____ minutes. Progress Note: Quality Stroke Does the patient have a stroke diagnosis?: No Procedures Date of Service Date of Service: 11/29/23
--- NOTE | 2023-11-29 13:24 | P.PNPL_ITS ---
Subjective Subjective Date of Service: 11/29/23 Interval history: FiO2 requirements and respiratory status improve with diuresis. Has significant AFib with RVR. Objective Data Labs 11/29/23 06:11 11/29/23 06:11 Labs: Laboratory Results - last 24 hr 11/28/23 11/28/23 11/29/23 16:45 20:42 06:11 WBC 12.7 H RBC 3.70 L Hgb 11.2 L Hct 33.6 L MCV 90.8 MCH 30.3 MCHC 33.3 RDW 16.3 H Plt Count 379 MPV 10.4 Absolute Nucleated RBC 0.100 H Nucleated RBC % (auto) 0.8 H Sodium 139 Potassium 3.1 L Chloride 97 Carbon Dioxide 30 H Anion Gap 15 BUN 36 H Creatinine 0.73 Estim Creat Clear Calc 68.6 Estimated GFR > 60 POC Glucose 447 H* 363 H* Fasting Glucose 138 H Calcium 8.7 B-Natriuretic Peptide 42 11/29/23 11/29/23 07:27 11:44 WBC RBC Hgb Hct MCV MCH MCHC RDW Plt Count MPV Absolute Nucleated RBC Nucleated RBC % (auto) Sodium Potassium Chloride Carbon Dioxide Anion Gap BUN Creatinine Estim Creat Clear Calc Estimated GFR POC Glucose 140 H 290 H Fasting Glucose Calcium B-Natriuretic Peptide Microbiology Microbiology Results: Microbiology 11/13/23 15:35 Blood - Venous Blood Culture - Final No growth after 5 days. 11/13/23 15:35 Blood - Venous Blood Culture - Final No growth after 5 days. 11/13/23 13:13 Sputum - Suctioned Gram Stain - Final 11/13/23 13:13 Sputum - Suctioned Sputum Culture - Final Corynebacterium species Gram negative deangelo 11/02/23 13:18 Blood - Venous Blood Culture - Final No growth after 5 days. 11/02/23 13:18 Blood - Venous Blood Culture - Final No growth after 5 days. 10/30/23 19:59 Blood - Venous Blood Culture - Final No growth after 5 days. 10/30/23 19:11 Blood - Venous Blood Culture - Final Enterococcus faecalis Physical Exam 2 Vital Signs: Vital Signs: Last Vital Signs Temp 97.1 F 11/29/23 12:00 Pulse 119 H 11/29/23 12:00 Resp 20 11/29/23 12:00 BP 159/75 H 11/29/23 12:00 Pulse Ox 93 11/29/23 12:00 O2 Del Method High Flow Nasal C annula 11/29/23 12:00 O2 Flow Rate 40 11/29/23 12:00 FiO2 50 11/29/23 12:00 Oxygen Flow Rate 2 11/10/23 07:30 BMI result Body Mass Index 34.8 Const: General: no acute distress, alert and awake Eyes: Sclerae: sclerae normal EOM: EOMs intact bilaterally Neck: Neck: Yes no lymphadenopathy, Yes trachea midline and Yes supple Resp: Effort & Inspection: normal respiratory effort and no respiratory distress Auscultation: clear to auscultation bilaterally and crackles (Diffuse bilateral) Cardio: Rate: tachycardic Rhythm: abnormal rhythm irregularly irregular Heart sounds: no gallops, no murmurs and no rubs GI: Palpation (GI): Soft to palpation and Other GI palpation findings present ( Nontender) Auscultation: normal bowel sounds Extrem: General: Yes no pedal edema, No clubbing and No cyanosis Procedures Date of Service Date of Service: 11/29/23 Assessment and Plan Assessment and plan (1) Pulmonary edema: Status: Acute (2) Acute respiratory failure with hypoxia: Status: Acute Plan Impression: 78-year-old lady with acute hypoxic respiratory failure that appears to correlate with fluid status and AFib with RVR. Respiratory status and FiO2 requirements are improving significantly with diuresis. CT chest from 11/20 reviewed and appears to demonstrate significant pulmonary edema. No evidence of noncardiogenic pulmonary edema at this time. Recommendations: Would consider further diuresis and rate control of underlying AFib. Continue to titrate off supplemental oxygen as tolerated. Time Spent With Patient Time: Total time managing care of this patient today ____ minutes. Progress Note: Quality Stroke Does the patient have a stroke diagnosis?: No
--- NOTE | 2023-11-29 14:21 | MHC.SL.SWA ---
Speech Pathologist Impression: Risk of Aspiration Due to: Hx of Recent Extubation Weak Cough Weak Voice Dysphasia Diet Status: Recommend continue on current diet consistencies of Ground/Mechanical (NDD2) with [place] Thick liquids. Liquid Consistency and Strategies for Safe Swallow: Liquid Intake Recommendation: [place] Thick Liquid Intake Strategies: Small Sips No Straws Solid Food Consistency: Dietary Recommendations: Grnd/Mech Altered (NDD2) Additional Modifications to Solid Foods: Recommend GROUND/MECH ALTERED (NDD2) diet and NECTAR THICK liquids, pills CRUSHED in PUREE. Patient will need close monitoring and direct supervision during meals with strict aspiration precautions. Oral Medication Intake: Crushed with Puree Please contact the pharmacy regarding appropriate crushable or liquid drug formulations that are available whenever modified delivery is recommended. Compensatory Strategies and Precautions to be Taken for Safe Swallow: Sitting Upright (90 deg) No Straw Small Bites and Sips Rate of Ingestion Change Avoid Specific Foods Supervision While Eating and Drinking for Safe Swallow: Total Supervision (1:1) Foods to Avoid: Mixed textures Swallowing Recommended Treatments: Compens. Strategy Educat. Recommendation for Speech: Inpatient Speech Therapy Comment: Patient was scheduled for MBSS study yesterday to evaluate for upgrade of diet, which patient had been requesting. Procedure was cancelled secondary to patient's worsening respiratory status. Patient seen at lunch today, now on HFNC, expressing interest in some items on tray (cottage cheese, bananas) but rejecting main meal. Patient fed self spoonfuls of cottage cheese, producing oral phase WFL, mild delay initiating swallow noted on each bite. Patient also took small sips from cup of NT coffee and milk (patient requested removal of sippy lid from cup, tolerated this well). Patient is tolerating these consistencies well, not complaining to this therapist about meal or liquids. Recommend continue on current diet consistencies of Ground/Mechanical (NDD2) with [place] Thick liquids. CIVIL ENGINEERING DESIGNER to check in with patient tomorrow re: MBSS study readiness ?continued need. Frequency/Duration: M-F Date Range for Service Req: Timeline to reassess: Java Sdet Clinican/Clinical Fellow: No Supervisory Statement: I have reviewed and agree with the student/clinical fellow's documentation: N/A Speech Language Pathologist: Davida Corcoran M.A., CCC-CIVIL ENGINEERING DESIGNER
[2023-11-29 16:12] LABS: Glucose, Whole Blood 336 mg/dL (60-115)
[2023-11-29 20:12] LABS: Glucose, Whole Blood 263 mg/dL (60-115)
[2023-11-29] MEDS: Insulin Glargine,Hum.rec.anlog 100 UNIT/ML 10 ML VIAL 21 UNIT SUBCUT (21:24)
[2023-11-29] MEDS: Throat Lozenge, Medicated LOZENGE 1 LOZENGE MUCOUS MEM (21:28)
[2023-11-30] VITALS (12 sets, daily range): BP systolic 117–169; BP diastolic 63–84; PULSE 60–199; RESP 18–22; TEMP 36–36.7; O2SAT 90–99; BMI 34.1
[2023-11-30] MEDS: oxyCODONE HCl Immed Release 5 MG TABLET PO ×4 (04:16→17:23)
[2023-11-30] MEDS: Omeprazole 20 MG CAPSULE.DR PO ×2 (05:16→17:20)
[2023-11-30] MEDS: Fluticasone/Vilanterol 100/25 BLST.W.DEV 1 PUFF INHALE (07:24)
[2023-11-30] MEDS: Albuterol/Iprat 2.5/0.5MG 3 ML AMPUL.NEB INHALE ×4 (07:24→18:59)
[2023-11-30 08:05] LABS: Glucose, Whole Blood 327 mg/dL (60-115)
[2023-11-30] MEDS: Nystatin Oral Susp 500,000 UNIT/5 ML ORAL.SUSP 500000 UNIT PO ×4 (08:50→21:07)
[2023-11-30] MEDS: Nicotine 14 MG PATCH.TD24 TRANSDERMA (08:50)
[2023-11-30] MEDS: Insulin Lispro 100 UNIT/ML 3 ML VIAL SUBCUT ×4 (08:51→21:08)
[2023-11-30] MEDS: dilTIAZem HCL CD 240 MG CAP.ER.DEG 480 MG PO (08:52)
[2023-11-30] MEDS: PARoxetine HCL 20 MG TABLET PO (08:52)
[2023-11-30] MEDS: allopurinoL 300 MG TABLET 150 MG PO (08:52)
[2023-11-30] MEDS: guaiFENesin DM 600/30 1 TAB TAB.ER.12H PO ×2 (08:52→21:07)
[2023-11-30] MEDS: Acetaminophen 325 MG TABLET 975 MG PO ×2 (08:54→21:11)
[2023-11-30] MEDS: Amiodarone HCL 200 MG TABLET PO (08:55)
[2023-11-30] MEDS: Furosemide 40 MG/4 ML VIAL IVPUSH ×2 (08:56→17:20)
[2023-11-30] MEDS: methylPREDNISolone Sod Succ 40 MG/ML VIAL 20 MG IVPUSH (08:56)
[2023-11-30] MEDS: Lidocaine 4 % Patch ADH..PATCH 1 PATCH TRANSDERMA (09:10)
[2023-11-30] MEDS: Throat Lozenge, Medicated LOZENGE 1 LOZENGE MUCOUS MEM ×3 (09:10→21:07)
--- NOTE | 2023-11-30 09:19 | P.PNIM_ITS ---
Subjective Subjective Date of Service: 11/30/23 Interval History: seen and evaluated this morning feels comfrotable while sitting, HR runs 100-120s Still on High flow O2 , weaning down to 40% 35L denies fever or chills Review of Systems Review of Systems: Yes all other systems are reviewed and are negative Physical Exam 2 Vital Signs: Vital Signs: Last Vital Signs Temp 97.6 F 11/30/23 07:45 Pulse 105 H 11/30/23 07:45 Resp 18 11/30/23 07:45 BP 133/71 11/30/23 07:45 Pulse Ox 94 11/30/23 07:45 O2 Del Method Room Air 11/30/23 07:45 O2 Flow Rate 40 11/29/23 16:00 FiO2 40 11/30/23 04:00 Oxygen Flow Rate 2 11/10/23 07:30 BMI result Body Mass Index 34.1 Const: Other: Constitutional : Awake, interactive, in mild distress Neck : Normal inspection, Supple Cardiovascular : RRR, no JVP, trace lower extremity edema, tachycardia Respiratory : good bilateral air entry, no crackles, wheezes or rhonchi Gastrointestinal: soft, lax, Normal bowel sounds, Non tender Skin : Warm, Dry Neurological : Alert & oriented x3, No focal deficit Objective Data Active Medications Acetaminophen (Acetaminophen 325 Mg Tablet) 975 mg PO Q6H PRN PRN Reason: mild pain, headache or fever Last Admin: 11/30/23 08:54 Dose: 975 mg Documented By: RONALD Albuterol Sulfate (Albuterol Sulfate (0.083%) 2.5 Mg/3 Ml Vial.Neb) 2.5 mg INHALE Q2H PRN PRN Reason: Shortness of Breath/Wheezing Last Admin: 11/18/23 07:28 Dose: 2.5 mg Documented By: SORAYA Albuterol/Ipratropium (Albuterol/Iprat 2.5/0.5mg 3 Ml Ampul.Neb) 3 ml INHALE RQ4H WHILE AWAKE [facility] Last Admin: 11/30/23 07:24 Dose: 3 ml Documented By: GRETA Allopurinol (Allopurinol 300 Mg Tablet) 150 mg PO DAILY [facility] Last Admin: 11/30/23 08:52 Dose: 150 mg Documented By: RONALD Amiodarone HCl (Amiodarone Hcl 200 Mg Tablet) 200 mg PO DAILY [facility] Last Admin: 11/30/23 08:55 Dose: 200 mg Documented By: RONALD Apixaban (Apixaban 5 Mg Tablet) 5 mg PO BID [facility] Last Admin: 11/17/23 08:53 Dose: 5 mg Documented By: SAMIFERICO Benzocaine (Throat Lozenge, Medicated Lozenge) 1 lozenge MUCOUS MEM Q2H PRN PRN Reason: Sore Throat Last Admin: 11/30/23 09:10 Dose: 1 lozenge Documented By: RONALD Diltiazem HCl (Diltiazem Hcl Cd 240 Mg Cap.Er.Deg) 480 mg PO DAILY [facility]; Protocol Last Admin: 11/30/23 08:52 Dose: 480 mg Documented By: RONALD Docusate Sodium (Docusate Sodium 100 Mg Capsule) 100 mg PO BID PRN PRN Reason: constipation Fluticasone/Vilanterol (Fluticasone/Vilanterol 100/25 Blst.W.Dev) 1 puff INHALE RDAILY [facility] Last Admin: 11/30/23 07:24 Dose: 1 puff Documented By: GRETA Furosemide (Furosemide 40 Mg/4 Ml Vial) 40 mg IVPUSH BID@0900,1800 [facility]; Protocol Last Admin: 11/30/23 08:56 Dose: 40 mg Documented By: RONALD Glucose (Glucose Gel 15 Gm Gel..Gram.) 15 gm PO Q15M PRN; Protocol PRN Reason: per Hypoglycemia Standing Ord. Guaifenesin/Dextromethorphan (Guaifenesin Dm 600/30 1 Tab Tab.Er.12h) 1 tab PO BID [facility] Last Admin: 11/30/23 08:52 Dose: 1 tab Documented By: RONALD Insulin Glargine (Insulin Glargine,Hum.Rec.Anlog 100 Unit/Ml 10 Ml Vial) 21 unit SUBCUT BEDTIME [facility] Last Admin: 11/29/23 21:24 Dose: 21 unit Documented By: ALEXANDRIA Insulin Human Lispro (Insulin Lispro 100 Unit/Ml 3 Ml Vial) 0 unit SUBCUT QIDACHS [facility]; Protocol Last Admin: 11/30/23 08:51 Dose: 18 unit Documented By: RONALD Lidocaine (Lidocaine 4 % Patch Adh..Patch) 1 patch TRANSDERMA DAILY [facility]; Protocol Last Admin: 11/29/23 09:20 Dose: 1 patch Documented By: RONALD Methylprednisolone Sodium Succinate (Methylprednisolone Sod Succ 40 Mg/Ml Vial) 20 mg IVPUSH Q24H [facility] Last Admin: 11/30/23 08:56 Dose: 20 mg Documented By: RONALD Nicotine (Nicotine 14 Mg Patch.Td24) 14 mg TRANSDERMA DAILY [facility] Last Admin: 11/30/23 08:50 Dose: 14 mg Documented By: RONALD Nystatin (Nystatin Oral Susp 500,000 Unit/5 Ml Oral.Susp) 500,000 unit PO QID [facility]; Protocol Last Admin: 11/30/23 08:50 Dose: 500,000 unit Documented By: RONALD Omeprazole (Omeprazole 20 Mg Capsule.Dr) 20 mg PO BID@0630,1630 [facility] Last Admin: 11/30/23 05:16 Dose: 20 mg Documented By: ALEXANDRIA Ondansetron HCl (Ondansetron Hcl 4 Mg/2 Ml Vial) 4 mg IVPUSH Q8H PRN PRN Reason: Nausea and Vomiting Last Admin: 11/12/23 20:05 Dose: 4 mg Documented By: BRAD Oxycodone HCl (Oxycodone Hcl Immed Release 5 Mg Tablet) 5 mg PO Q4H PRN PRN Reason: Pain, Moderate(Pain Scale 4-6) Last Admin: 11/30/23 08:52 Dose: 5 mg Documented By: RONALD Paroxetine HCl (Paroxetine Hcl 20 Mg Tablet) 20 mg PO DAILY@0900 [facility] Last Admin: 11/30/23 08:52 Dose: 20 mg Documented By: RONALD Sodium Chloride (0.9 % Sodium Chloride Flush 3 Ml Syringe) 3 ml IVFLUSH QSHIFT [facility] Last Admin: 11/29/23 21:24 Dose: 3 ml Documented By: ALEXANDRIA Labs 11/29/23 06:11 11/29/23 06:11 Labs: Laboratory Results - last 24 hr 11/29/23 11/29/23 11/29/23 11:44 15:56 20:07 POC Glucose 290 H 336 H 263 H 11/30/23 07:57 POC Glucose 327 H Assessment and Plan (1) Pulmonary edema: Status: Acute (2) Multifocal atrial tachycardia: Status: Acute (3) Thrombocytopenia: Status: Acute (4) Acute on chronic anemia: Status: Acute (5) Acute encephalopathy: Status: Acute Plan 78yo F with pAF on apixaban, COPD not on hO2, gout, HF with unknown EF, and DM2. presented with AMS, admitted for hypoxia due to CAP + COPD. developed worsening hypoxia due to aspiration and intubated on 11/13/23 . extubated 11/14/23 and stepped down to telemetry 11/15/23. developed LGIB + CHF/COPD exacerbations. still on HFNC but gradually weaning ACTIVE ISSUES: acute hypoxic respiratory failure due to acute/chronic HFpEF and acute COPD exacerbation Continue IV Lasix wean HFNC as tolerated use CPAP as necessary for rescue and bedtime Continue IV methylprednisolone 11/19 and decreased to q24h 11/23. 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 GI rec conservative measures Transfused 2 units 11/21 with good response in H+H; also got vit K. H+H stable. Stopped octreotide. IV PPI changed to PO. DM2 with steroid-induced hyperglycemia increased doses of correction-dose lispro and glargine hypokalemia acute, replace, monitor pancreatic abnormality as part of workup of bacteremia, CT abdomen and pelvis was done that showed abrupt change in size of pancreas with atrophy plus ductal dilatation be on pancreatic neck; also extra and intrahepatic biliary dilatation to level of ampulla noted -follow-up MRI obtained to rule out pancreatic mass: no masses but showed changing caliber of pancreatic duct with distal atrophy of pancreatic parenchyma, tortuosity and dilatation of the duct, underlying stricture was not excluded; distended gallbladder with sludge and small stones, common bile duct 1.4 cm without intraductal filling defects, moderate intrahepatic biliary ductal dilatation tjat may represent biliary dyskinesia. -no abdominal pain, normal LFTs; per GI no aggressive invasive procedures as pt asymptomatic TTE with no vegetation moderate protein/oscar malnutrition supplements RESOLVED ISSUES: aspiration pneumonia sepsis due to Enterococcus faecalis bacteremia [positive BCx 10/29, repeat BCx 11/01 and 11/12 negative] azithro 10/30-11/04, vanco 10/30-10/31, ceftriaxone 10/31-11/01, pip-don 11/01- and again 11/12-11/22, dapto 11/06-11/12 discussed with ID. Total 21d antibiotics from 11/01 completed AF/RVR was difficult to control and got diltiazem IV drip, digoxin IV, and amiodarone PO load TTE 11/04: LVEF 60-65%, normal right ventricular cavity size and systolic function, no obvious vegetation noted Still running high at 120s on diltiazem 480 mg CD daily Continue amiodarone. Currently in sinus tachycardia with abundant PACs; increased diltiazem to 480 mg CD daily on 11/22 Eliquis on hold as above thrombocytopenia likely due to infection; resolved hyperNa resolved CHRONIC ISSUES: gout continue allopurinol mood disorder continue paroxetine CODE STATUS: per ICU attending, DNR/DNI, confirmed with pt and her daughter and reaffirmed 11/20 DVT PPx; Eliquis reason for continued hospitalization: on high flow requiring weaning down as tolerated Quality Stroke Does the patient have a stroke diagnosis?: No VTE Prior VTE?: No VTE Risk Level:: Medical - moderate - high VTE Device Contraindication: Treatment Not Indicated VTE Drug Contraindication: N/A - Med Ordered
--- NOTE | 2023-11-30 10:59 | MHC.CLN ---
F/U PT IS MODERATELY MALNOURISHED PO INTAKE 75-100% WITH OCCASIONAL 0% REFUSAL OF MEAL DIET RX: 2000DM DIET GRD M/S WITH NT LIQ PER COTTON FARMER MBS CANCELLED AND COTTON FARMER CONTINUES TO RECOMMEND GRD M/S DIET WITH NT LIQ PT RECEIVING ENSURE MAX BID TO PROVIDE 300KCALS, 60G PROTEIN MONITOR PO INTAKE AND ENCOURAGE SUPPLEMENTS
[2023-11-30 11:22] LABS: Glucose, Whole Blood 283 mg/dL (60-115)
--- NOTE | 2023-11-30 11:59 | MHC.SL.SWA ---
Speech Pathologist Impression: Risk of aspiration, oropharyngeal dysphagia Risk of Aspiration Due to: Hx of Recent Extubation Weak Cough Weak Voice Dysphasia Diet Status: Recommend continue on current diet consistencies of Ground/Mechanical (NDD2) with [place] Thick liquids. Liquid Consistency and Strategies for Safe Swallow: Liquid Intake Recommendation: [place] Thick Liquid Intake Strategies: Small Sips No Straws Solid Food Consistency: Dietary Recommendations: Grnd/Mech Altered (NDD2) Additional Modifications to Solid Foods: Recommend GROUND/MECH ALTERED (NDD2) diet and [place] THICK liquids, pills CRUSHED in PUREE. Patient will need close monitoring and direct supervision during meals with strict aspiration precautions. MBSS to be scheduled on Sunday. Oral Medication Intake: Crushed with Puree Please contact the pharmacy regarding appropriate crushable or liquid drug formulations that are available whenever modified delivery is recommended. Compensatory Strategies and Precautions to be Taken for Safe Swallow: Sitting Upright (90 deg) No Straw Small Bites and Sips Rate of Ingestion Change Avoid Specific Foods Supervision While Eating and Drinking for Safe Swallow: Total Supervision (1:1) Foods to Avoid: Mixed textures Swallowing Recommended Treatments: Compens. Strategy Educat. Recommendation for Speech: Inpatient Speech Therapy Frequency/Duration: M-F Date Range for Service Req: Timeline to reassess: Event Services Manager Clinican/Clinical Fellow: No Supervisory Statement: I have reviewed and agree with the student/clinical fellow's documentation: N/A Speech Language Pathologist: Angelina Hall M.A., CCC-LIFE SKILLS COACH
[2023-11-30] MEDS: 0.9 % Sodium Chloride Flush 3 ML SYRINGE IVFLUSH ×3 (12:39→21:09)
--- NOTE | 2023-11-30 12:57 | MHC.CM.PN ---
Pt not yet ready for DC, she is still requiring high flow O2. DCP: was home with services, may need to be STR, CM to follow and assist with DC plan.
[2023-11-30 16:14] LABS: Glucose, Whole Blood 293 mg/dL (60-115)
[2023-11-30 20:16] LABS: Glucose, Whole Blood 466 mg/dL (60-115)
[2023-11-30] MEDS: Apixaban 5 MG TABLET PO (21:07)
[2023-11-30] MEDS: Insulin Glargine,Hum.rec.anlog 100 UNIT/ML 10 ML VIAL 21 UNIT SUBCUT (21:08)
[2023-12-01] VITALS (18 sets, daily range): BP systolic 119–167; BP diastolic 60–79; PULSE 62–125; RESP 18–24; TEMP 36–37.1; O2SAT 89–98; BMI 34.8
[2023-12-01] MEDS: Omeprazole 20 MG CAPSULE.DR PO ×2 (06:47→16:42)
[2023-12-01 07:03] LABS: Hemoglobin 10.5 g/dl (12.0-16.0); Mean Corpuscular HGB Conc 31.8 g/dl (31.0-35.0); Mean Corpuscular Hemoglobin 29.5 pg (27.0-33.0); Mean Corpuscular Volume 92.7 fL (80.0-98.0); Mean Platelet Volume 10.5 fL (9.4-12.3); NRBC Pct Auto 0.3 /100WBC (0.0-0.2); Platelet Count 382 X10*3/uL (160-400); Red Blood Count 3.56 X10*6/uL (4.20-5.50); Red Cell Distribution Width 16.4 % (11.0-16.0); White Blood Count 11.3 X10*3/uL (4.8-10.8)
[2023-12-01 07:34] LABS: Anion Gap 15 (12-20); Blood Urea Nitrogen 34 mg/dL (9-16); Calcium 8.9 mg/dL (8.4-10.2); Carbon Dioxide 35 mmol/L (22-29); Chloride 93 mmol/L (96-108); Creatinine Clr Calc Pharmacy 74.8; Estimated Glomerular Filt Rate > 60; Glucose Random 110 mg/dL (60-115); Sodium 140 mmol/L (135-145)
[2023-12-01 07:34] LABS: Glucose, Whole Blood 140 mg/dL (60-115)
[2023-12-01] MEDS: Albuterol/Iprat 2.5/0.5MG 3 ML AMPUL.NEB INHALE ×4 (07:35→18:48)
[2023-12-01] MEDS: Fluticasone/Vilanterol 100/25 BLST.W.DEV 1 PUFF INHALE (07:35)
[2023-12-01] MEDS: oxyCODONE HCl Immed Release 5 MG TABLET PO ×2 (08:36→17:34)
[2023-12-01] MEDS: allopurinoL 300 MG TABLET 150 MG PO (08:36)
[2023-12-01] MEDS: Amiodarone HCL 200 MG TABLET PO (08:36)
[2023-12-01] MEDS: PARoxetine HCL 20 MG TABLET PO (08:37)
[2023-12-01] MEDS: Apixaban 5 MG TABLET PO ×2 (08:37→21:41)
[2023-12-01] MEDS: dilTIAZem HCL CD 240 MG CAP.ER.DEG 480 MG PO (08:37)
[2023-12-01] MEDS: guaiFENesin DM 600/30 1 TAB TAB.ER.12H PO ×2 (08:37→21:42)
[2023-12-01] MEDS: Nystatin Oral Susp 500,000 UNIT/5 ML ORAL.SUSP 500000 UNIT PO ×4 (08:38→21:41)
[2023-12-01] MEDS: Lidocaine 4 % Patch ADH..PATCH 1 PATCH TRANSDERMA (08:38)
[2023-12-01] MEDS: Nicotine 14 MG PATCH.TD24 TRANSDERMA (08:38)
[2023-12-01] MEDS: Potassium Chloride Packet 20 MEQ PACKET 40 MEQ PO (08:38)
[2023-12-01] MEDS: Furosemide 40 MG/4 ML VIAL IVPUSH ×2 (08:39→17:35)
[2023-12-01] MEDS: Insulin Lispro 100 UNIT/ML 3 ML VIAL SUBCUT ×4 (08:39→21:42)
[2023-12-01] MEDS: methylPREDNISolone Sod Succ 40 MG/ML VIAL 20 MG IVPUSH (08:39)
[2023-12-01] MEDS: 0.9 % Sodium Chloride Flush 3 ML SYRINGE IVFLUSH ×2 (08:40→16:45)
--- NOTE | 2023-12-01 10:10 | HO.PM.IMPN ---
Subjective Subjective Date of Service: 12/01/23 Interval History: seen and evaluated this morning feels comfrotable while sitting, HR runs 90s-120s, slows down when she sleeps Still on High flow O2 , weaning down to 35% 30L denies fever or chills Review of Systems Review of Systems: Yes all other systems are reviewed and are negative Physical Exam Vital Signs: Vital Signs: Last Vital Signs Temp 97.5 F 12/01/23 08:00 Pulse 96 12/01/23 08:37 Resp 22 H 12/01/23 08:00 BP 126/67 12/01/23 08:39 Pulse Ox 91 L 12/01/23 08:00 O2 Del Method High Flow Nasal C annula 12/01/23 08:00 O2 Flow Rate 35 12/01/23 08:00 FiO2 39 12/01/23 08:00 Oxygen Flow Rate 2 11/10/23 07:30 BMI result Body Mass Index 34.8 Const: Other: Constitutional : Awake, interactive, looks more comfortable Neck : Normal inspection, Supple Cardiovascular : RRR, no JVP, trace lower extremity edema, tachycardia Respiratory : good bilateral air entry, no crackles, wheezes or rhonchi Gastrointestinal: soft, lax, Normal bowel sounds, Non tender Skin : Warm, Dry Neurological : Alert & oriented x3, No focal deficit Objective Data Active Medications Acetaminophen (Acetaminophen 325 Mg Tablet) 975 mg PO Q6H PRN PRN Reason: mild pain, headache or fever Last Admin: 11/30/23 21:11 Dose: 975 mg Documented By: MELVIN Albuterol/Ipratropium (Albuterol/Iprat 2.5/0.5mg 3 Ml Ampul.Neb) 3 ml INHALE RQ4H WHILE AWAKE [facility] Last Admin: 12/01/23 07:35 Dose: 3 ml Documented By: SORAYA Allopurinol (Allopurinol 300 Mg Tablet) 150 mg PO DAILY [facility] Last Admin: 12/01/23 08:36 Dose: 150 mg Documented By: JAMEY Amiodarone HCl (Amiodarone Hcl 200 Mg Tablet) 200 mg PO DAILY [facility] Last Admin: 12/01/23 08:36 Dose: 200 mg Documented By: JAMEY Apixaban (Apixaban 5 Mg Tablet) 5 mg PO BID [facility] Last Admin: 12/01/23 08:37 Dose: 5 mg Documented By: JAMEY Benzocaine (Throat Lozenge, Medicated Lozenge) 1 lozenge MUCOUS MEM Q2H PRN PRN Reason: Sore Throat Last Admin: 11/30/23 21:07 Dose: 1 lozenge Documented By: MELVIN Diltiazem HCl (Diltiazem Hcl Cd 240 Mg Cap.Er.Deg) 480 mg PO DAILY [facility]; Protocol Last Admin: 12/01/23 08:37 Dose: 480 mg Documented By: JAMEY Docusate Sodium (Docusate Sodium 100 Mg Capsule) 100 mg PO BID PRN PRN Reason: constipation Fluticasone/Vilanterol (Fluticasone/Vilanterol 100/25 Blst.W.Dev) 1 puff INHALE RDAILY [facility] Last Admin: 12/01/23 07:35 Dose: 1 puff Documented By: SORAYA Furosemide (Furosemide 40 Mg/4 Ml Vial) 40 mg IVPUSH BID@0900,1800 [facility]; Protocol Last Admin: 12/01/23 08:39 Dose: 40 mg Documented By: JAMEY Glucose (Glucose Gel 15 Gm Gel..Gram.) 15 gm PO Q15M PRN; Protocol PRN Reason: per Hypoglycemia Standing Ord. Guaifenesin/Dextromethorphan (Guaifenesin Dm 600/30 1 Tab Tab.Er.12h) 1 tab PO BID [facility] Last Admin: 12/01/23 08:37 Dose: 1 tab Documented By: JAMEY Insulin Glargine (Insulin Glargine,Hum.Rec.Anlog 100 Unit/Ml 10 Ml Vial) 21 unit SUBCUT BEDTIME [facility] Last Admin: 11/30/23 21:08 Dose: 21 unit Documented By: MELVIN Insulin Human Lispro (Insulin Lispro 100 Unit/Ml 3 Ml Vial) 0 unit SUBCUT QIDACHS [facility]; Protocol Last Admin: 12/01/23 08:39 Dose: 2 unit Documented By: JAMEY Lidocaine (Lidocaine 4 % Patch Adh..Patch) 1 patch TRANSDERMA DAILY [facility]; Protocol Last Admin: 12/01/23 08:38 Dose: 1 patch Documented By: JAMEY Methylprednisolone Sodium Succinate (Methylprednisolone Sod Succ 40 Mg/Ml Vial) 20 mg IVPUSH Q24H [facility] Last Admin: 12/01/23 08:39 Dose: 20 mg Documented By: JAMEY Nicotine (Nicotine 14 Mg Patch.Td24) 14 mg TRANSDERMA DAILY [facility] Last Admin: 12/01/23 08:38 Dose: 14 mg Documented By: JAMEY Nystatin (Nystatin Oral Susp 500,000 Unit/5 Ml Oral.Susp) 500,000 unit PO QID [facility]; Protocol Last Admin: 12/01/23 08:38 Dose: 500,000 unit Documented By: JAMEY Omeprazole (Omeprazole 20 Mg Capsule.Dr) 20 mg PO BID@0630,1630 [facility] Last Admin: 12/01/23 06:47 Dose: 20 mg Documented By: MELVIN Ondansetron HCl (Ondansetron Hcl 4 Mg/2 Ml Vial) 4 mg IVPUSH Q8H PRN PRN Reason: Nausea and Vomiting Last Admin: 11/12/23 20:05 Dose: 4 mg Documented By: BRAD Oxycodone HCl (Oxycodone Hcl Immed Release 5 Mg Tablet) 5 mg PO Q4H PRN PRN Reason: Pain, Moderate(Pain Scale 4-6) Last Admin: 12/01/23 08:36 Dose: 5 mg Documented By: JAMEY Paroxetine HCl (Paroxetine Hcl 20 Mg Tablet) 20 mg PO DAILY@0900 [facility] Last Admin: 12/01/23 08:37 Dose: 20 mg Documented By: JAMEY Sodium Chloride (0.9 % Sodium Chloride Flush 3 Ml Syringe) 3 ml IVFLUSH QSHIFT [facility] Last Admin: 12/01/23 08:40 Dose: 3 ml Documented By: JAMEY Labs 12/01/23 06:02 12/01/23 06:02 Labs: Laboratory Results - last 24 hr 11/30/23 11/30/23 11/30/23 11:17 16:05 20:00 MCV MCH MCHC RDW Plt Count MPV Absolute Nucleated RBC Nucleated RBC % (auto) Anion Gap Estim Creat Clear Calc Estimated GFR POC Glucose 283 H 293 H 466 H* Random Glucose Calcium 12/01/23 12/01/23 06:02 07:25 MCV 92.7 MCH 29.5 MCHC 31.8 RDW 16.4 H Plt Count 382 MPV 10.5 Absolute Nucleated RBC 0.030 H Nucleated RBC % (auto) 0.3 H Anion Gap 15 Estim Creat Clear Calc 74.8 Estimated GFR > 60 POC Glucose 140 H Random Glucose 110 Calcium 8.9 Assessment and Plan (1) Pulmonary edema: Status: Acute (2) Multifocal atrial tachycardia: Status: Acute (3) Thrombocytopenia: Status: Acute (4) Acute on chronic anemia: Status: Acute (5) Acute hypoxemic respiratory failure: Status: Acute (6) Aspiration pneumonia: Status: Acute Plan 78yo F with pAF on apixaban, COPD not on hO2, gout, HF with unknown EF, and DM2. presented with AMS, admitted for hypoxia due to CAP + COPD. developed worsening hypoxia due to aspiration and intubated on 11/13/23 . extubated 11/14/23 and stepped down to telemetry 11/15/23. developed LGIB + CHF/COPD exacerbations. still on HFNC but gradually weaning ACTIVE ISSUES: acute hypoxic respiratory failure due to acute/chronic HFpEF and acute COPD exacerbation improving slowly Continue IV Lasix TTE with no vegetation wean HFNC as tolerated use CPAP as necessary for rescue and bedtime DC IV methylprednisolone , change to PO continue nebs Pulm and cardiology following Swallowing problem [employer] following; continue NDD2 solids + nectar liquids To do MBSS on Sunday if O2 allows acute blood loss anemia due to LGIB restarted Eliquis. GI rec conservative measures Transfused 2 units 11/21 with good response in H+H; also got vit K. H+H stable. Stopped octreotide. IV PPI changed to PO. DM2 with steroid-induced hyperglycemia increased doses of correction - dose lispro and glargine hypokalemia acute, replace, monitor pancreatic abnormality as part of workup of bacteremia, CT abdomen and pelvis was done that showed abrupt change in size of pancreas with atrophy plus ductal dilatation be on pancreatic neck; also extra and intrahepatic biliary dilatation to level of ampulla noted MRI obtained to rule out pancreatic mass: no masses but showed changing caliber of pancreatic duct with distal atrophy of pancreatic parenchyma, tortuosity and dilatation of the duct, underlying stricture was not excluded; distended gallbladder with sludge and small stones, common bile duct 1.4 cm without intraductal filling defects, moderate intrahepatic biliary ductal dilatation tjat may represent biliary dyskinesia. no abdominal pain, normal LFTs; per GI no aggressive invasive procedures as pt asymptomatic moderate protein/oscar malnutrition supplements RESOLVED ISSUES: aspiration pneumonia sepsis due to Enterococcus faecalis bacteremia [positive BCx 10/29, repeat BCx 11/01 and 11/12 negative] azithro 10/30-11/04, vanco 10/30-10/31, ceftriaxone 10/31-11/01, pip-don 11/01- and again 11/12-11/22, dapto 11/06-11/12 discussed with ID. Total 21d antibiotics from 11/01 completed AF/RVR was difficult to control and got diltiazem IV drip, digoxin IV, and amiodarone PO load TTE 11/04: LVEF 60-65%, normal right ventricular cavity size and systolic function, no obvious vegetation noted Still running high at 120s on diltiazem 480 mg CD daily Continue amiodarone. Currently in sinus tachycardia with abundant PACs; increased diltiazem to 480 mg CD daily on 11/22 Eliquis on hold as above thrombocytopenia likely due to infection; resolved hyperNa resolved CHRONIC ISSUES: gout continue allopurinol mood disorder continue paroxetine CODE STATUS: per ICU attending, DNR/DNI, confirmed with pt and her daughter and reaffirmed 11/20 DVT PPx; Eliquis reason for continued hospitalization: on high flow requiring weaning down as tolerated Quality Stroke Does the patient have a stroke diagnosis?: No VTE Prior VTE?: No VTE Risk Level:: Medical - moderate - high VTE Device Contraindication: Treatment Not Indicated VTE Drug Contraindication: N/A - Med Ordered
[2023-12-01] MEDS: Throat Lozenge, Medicated LOZENGE 1 LOZENGE MUCOUS MEM ×2 (11:03→21:42)
[2023-12-01 11:37] LABS: Glucose, Whole Blood 439 mg/dL (60-115)
[2023-12-01] MEDS: Ketorolac Tromethamine 15 MG/ML VIAL IVPUSH (12:04)
[2023-12-01 16:13] LABS: Glucose, Whole Blood 399 mg/dL (60-115)
[2023-12-01 20:58] LABS: Glucose, Whole Blood 344 mg/dL (60-115)
[2023-12-01] MEDS: Acetaminophen 325 MG TABLET 975 MG PO (21:41)
[2023-12-01] MEDS: Insulin Glargine,Hum.rec.anlog 100 UNIT/ML 10 ML VIAL 21 UNIT SUBCUT (21:42)
[2023-12-01] MEDS: HYDROmorphone HCl 1 MG/ML SYRINGE IVPUSH (23:59)
[2023-12-02] VITALS (13 sets, daily range): BP systolic 124–141; BP diastolic 62–87; PULSE 58–129; RESP 16–22; TEMP 36–36.4; O2SAT 92–100; BMI 34.3
[2023-12-02 06:37] LABS: Hematocrit 32.7 % (37.0-47.0); Hemoglobin 10.6 g/dl (12.0-16.0); Mean Corpuscular HGB Conc 32.4 g/dl (31.0-35.0); Mean Corpuscular Hemoglobin 30.1 pg (27.0-33.0); Mean Corpuscular Volume 92.9 fL (80.0-98.0); Mean Platelet Volume 10.3 fL (9.4-12.3); NRBC Pct Auto 0.5 /100WBC (0.0-0.2); Platelet Count 351 X10*3/uL (160-400); Red Blood Count 3.52 X10*6/uL (4.20-5.50); White Blood Count 13.2 X10*3/uL (4.8-10.8)
[2023-12-02 07:12] LABS: Anion Gap 16 (12-20); Blood Urea Nitrogen 47 mg/dL (9-16); Calcium 8.8 mg/dL (8.4-10.2); Carbon Dioxide 31 mmol/L (22-29); Chloride 94 mmol/L (96-108); Estimated Glomerular Filt Rate > 60; Glucose Random 151 mg/dL (60-115); Potassium 3.5 mmol/L (3.3-5.1); Sodium 137 mmol/L (135-145)
[2023-12-02 07:45] LABS: Glucose, Whole Blood 182 mg/dL (60-115)
[2023-12-02] MEDS: Fluticasone/Vilanterol 100/25 BLST.W.DEV 1 PUFF INHALE (07:53)
[2023-12-02] MEDS: Albuterol/Iprat 2.5/0.5MG 3 ML AMPUL.NEB INHALE ×4 (07:53→19:29)
[2023-12-02] MEDS: Lidocaine 4 % Patch ADH..PATCH 1 PATCH TRANSDERMA (08:28)
[2023-12-02] MEDS: Insulin Lispro 100 UNIT/ML 3 ML VIAL SUBCUT ×4 (08:28→21:31)
[2023-12-02] MEDS: Nystatin Oral Susp 500,000 UNIT/5 ML ORAL.SUSP 500000 UNIT PO ×3 (08:28→16:34)
[2023-12-02] MEDS: Nicotine 14 MG PATCH.TD24 TRANSDERMA (08:28)
[2023-12-02] MEDS: Throat Lozenge, Medicated LOZENGE 1 LOZENGE MUCOUS MEM (08:29)
[2023-12-02] MEDS: dilTIAZem HCL CD 240 MG CAP.ER.DEG 480 MG PO (08:29)
[2023-12-02] MEDS: oxyCODONE HCl Immed Release 5 MG TABLET PO ×2 (08:29→13:13)
[2023-12-02] MEDS: Furosemide 40 MG/4 ML VIAL IVPUSH (08:29)
[2023-12-02] MEDS: Amiodarone HCL 200 MG TABLET PO (08:30)
[2023-12-02] MEDS: predniSONE 20 MG TABLET 40 MG PO (08:30)
[2023-12-02] MEDS: 0.9 % Sodium Chloride Flush 3 ML SYRINGE IVFLUSH ×3 (08:30→20:30)
[2023-12-02] MEDS: guaiFENesin DM 600/30 1 TAB TAB.ER.12H PO ×2 (08:30→20:29)
[2023-12-02] MEDS: PARoxetine HCL 20 MG TABLET PO (08:30)
[2023-12-02] MEDS: allopurinoL 300 MG TABLET 150 MG PO (08:30)
[2023-12-02] MEDS: Apixaban 5 MG TABLET PO ×2 (08:30→20:29)
--- NOTE | 2023-12-02 10:12 | P.PNIM_ITS ---
Subjective Subjective Date of Service: 12/02/23 Interval History: seen and evaluated this morning complaining of back pain Weaned off High flow, on NC now HR runs 90s-120s, slows down when she sleeps denies fever or chills Review of Systems Review of Systems: Yes all other systems are reviewed and are negative Physical Exam 2 Vital Signs: Vital Signs: Last Vital Signs Temp 97.0 F 12/02/23 07:50 Pulse 85 12/02/23 08:29 Resp 20 12/02/23 07:55 BP 141/62 H 12/02/23 08:29 Pulse Ox 97 12/02/23 07:50 O2 Del Method Nasal Cannula 12/02/23 07:50 O2 Flow Rate 5 12/02/23 07:50 FiO2 40 12/02/23 04:00 Oxygen Flow Rate 2 11/10/23 07:30 BMI result Body Mass Index 34.3 Const: Other: Constitutional : Awake, interactive, looks more comfortable Neck : Normal inspection, Supple Cardiovascular : RRR, no JVP, trace lower extremity edema, tachycardia Respiratory : good bilateral air entry, no crackles, wheezes or rhonchi Gastrointestinal: soft, lax, Normal bowel sounds, Non tender Skin : Warm, Dry Neurological : Alert & oriented x3, No focal deficit Objective Data Active Medications Acetaminophen (Acetaminophen 325 Mg Tablet) 975 mg PO Q6H PRN PRN Reason: mild pain, headache or fever Last Admin: 12/01/23 21:41 Dose: 975 mg Documented By: MELVIN Albuterol/Ipratropium (Albuterol/Iprat 2.5/0.5mg 3 Ml Ampul.Neb) 3 ml INHALE RQ4H WHILE AWAKE [facility] Last Admin: 12/02/23 07:53 Dose: 3 ml Documented By: SORAYA Allopurinol (Allopurinol 300 Mg Tablet) 150 mg PO DAILY [facility] Last Admin: 12/02/23 08:30 Dose: 150 mg Documented By: JAMEY Amiodarone HCl (Amiodarone Hcl 200 Mg Tablet) 200 mg PO DAILY [facility] Last Admin: 12/02/23 08:30 Dose: 200 mg Documented By: JAMEY Apixaban (Apixaban 5 Mg Tablet) 5 mg PO BID [facility] Last Admin: 12/02/23 08:30 Dose: 5 mg Documented By: JAMEY Benzocaine (Throat Lozenge, Medicated Lozenge) 1 lozenge MUCOUS MEM Q2H PRN PRN Reason: Sore Throat Last Admin: 12/02/23 08:29 Dose: 1 lozenge Documented By: JAMEY Diltiazem HCl (Diltiazem Hcl Cd 240 Mg Cap.Er.Deg) 480 mg PO DAILY [facility]; Protocol Last Admin: 12/02/23 08:29 Dose: 480 mg Documented By: JAMEY Docusate Sodium (Docusate Sodium 100 Mg Capsule) 100 mg PO BID PRN PRN Reason: constipation Fluticasone/Vilanterol (Fluticasone/Vilanterol 100/25 Blst.W.Dev) 1 puff INHALE RDAILY [facility] Last Admin: 12/02/23 07:53 Dose: 1 puff Documented By: SORAYA Furosemide (Furosemide 40 Mg/4 Ml Vial) 40 mg IVPUSH BID@0900,1800 [facility]; Protocol Last Admin: 12/02/23 08:29 Dose: 40 mg Documented By: JAMEY Glucose (Glucose Gel 15 Gm Gel..Gram.) 15 gm PO Q15M PRN; Protocol PRN Reason: per Hypoglycemia Standing Ord. Guaifenesin/Dextromethorphan (Guaifenesin Dm 600/30 1 Tab Tab.Er.12h) 1 tab PO BID [facility] Last Admin: 12/02/23 08:30 Dose: 1 tab Documented By: JAMEY Insulin Glargine (Insulin Glargine,Hum.Rec.Anlog 100 Unit/Ml 10 Ml Vial) 21 unit SUBCUT BEDTIME [facility] Last Admin: 12/01/23 21:42 Dose: 21 unit Documented By: LAFLAMLea Insulin Human Lispro (Insulin Lispro 100 Unit/Ml 3 Ml Vial) 0 unit SUBCUT QIDACHS [facility]; Protocol Last Admin: 12/02/23 08:28 Dose: 4 unit Documented By: JAMEY Lidocaine (Lidocaine 4 % Patch Adh..Patch) 1 patch TRANSDERMA DAILY [facility]; Protocol Last Admin: 12/02/23 08:28 Dose: 1 patch Documented By: JAMEY Nicotine (Nicotine 14 Mg Patch.Td24) 14 mg TRANSDERMA DAILY [facility] Last Admin: 12/02/23 08:28 Dose: 14 mg Documented By: JAMEY Nystatin (Nystatin Oral Susp 500,000 Unit/5 Ml Oral.Susp) 500,000 unit PO QID [facility]; Protocol Last Admin: 12/02/23 08:28 Dose: 500,000 unit Documented By: JAMEY Omeprazole (Omeprazole 20 Mg Capsule.Dr) 20 mg PO BID@0630,1630 [facility] Last Admin: 12/02/23 06:01 Dose: Not Given Documented By: MELVIN Non-Admin Reason: Patient Refused Ondansetron HCl (Ondansetron Hcl 4 Mg/2 Ml Vial) 4 mg IVPUSH Q8H PRN PRN Reason: Nausea and Vomiting Last Admin: 11/12/23 20:05 Dose: 4 mg Documented By: EANRIVAKANKSHA Oxycodone HCl (Oxycodone Hcl Immed Release 5 Mg Tablet) 5 mg PO Q4H PRN PRN Reason: Pain, Moderate(Pain Scale 4-6) Last Admin: 12/02/23 08:29 Dose: 5 mg Documented By: JAMEY Paroxetine HCl (Paroxetine Hcl 20 Mg Tablet) 20 mg PO DAILY@0900 [facility] Last Admin: 12/02/23 08:30 Dose: 20 mg Documented By: JAMEY Prednisone (Prednisone 20 Mg Tablet) 40 mg PO DAILY [facility] Last Admin: 12/02/23 08:30 Dose: 40 mg Documented By: JAMEY Sodium Chloride (0.9 % Sodium Chloride Flush 3 Ml Syringe) 3 ml IVFLUSH QSHIFT [facility] Last Admin: 12/02/23 08:30 Dose: 3 ml Documented By: JAMEY Labs 12/02/23 06:11 12/02/23 06:11 Labs: Laboratory Results - last 24 hr 12/01/23 12/01/23 12/01/23 11:29 16:05 20:37 MCV MCH MCHC RDW Plt Count MPV Absolute Nucleated RBC Nucleated RBC % (auto) Anion Gap Estim Creat Clear Calc Estimated GFR POC Glucose 439 H* 399 H* 344 H Random Glucose Calcium 12/02/23 12/02/23 06:11 07:38 MCV 92.9 MCH 30.1 MCHC 32.4 RDW 17.0 H Plt Count 351 MPV 10.3 Absolute Nucleated RBC 0.060 H Nucleated RBC % (auto) 0.5 H Anion Gap 16 Estim Creat Clear Calc 69.0 Estimated GFR > 60 POC Glucose 182 H Random Glucose 151 H Calcium 8.8 Assessment and Plan (1) Pulmonary edema: Status: Acute (2) Acute on chronic anemia: Status: Acute (3) Acute hypoxemic respiratory failure: Status: Acute Plan 78yo F with pAF on apixaban, COPD not on hO2, gout, HF with unknown EF, and DM2. presented with AMS, admitted for hypoxia due to CAP + COPD. developed worsening hypoxia due to aspiration and intubated on 11/13/23 . extubated 11/14/23 and stepped down to telemetry 11/15/23. developed LGIB + CHF/COPD exacerbations. still on HFNC but gradually weaning ACTIVE ISSUES: acute hypoxic respiratory failure due to acute/chronic HFpEF and acute COPD exacerbation improving , weaned off High flow repeat CXR showing interstitial disease likely inflammatory rather than CHF (12/01) IV Lasix , decrease to Daily (12/01) DC IV methylprednisolone , change to PO Incentive spirometry Pulm and cardiology inputs appreciated chest pysiotherapy use CPAP as necessary for bedtime and as needed continue nebs Swallowing problem [employer] following; continue NDD2 solids + nectar liquids To do MBSS on 12/02 if O2 allows acute blood loss anemia due to LGIB restarted Eliquis. GI rec conservative measures Transfused 2 units 11/21 with good response in H+H; also got vit K. H+H stable. Stopped octreotide. IV PPI changed to PO. DM2 with steroid-induced hyperglycemia increased doses of correction - dose lispro and glargine hypokalemia acute, replace, monitor pancreatic abnormality as part of workup of bacteremia, CT abdomen and pelvis was done that showed abrupt change in size of pancreas with atrophy plus ductal dilatation be on pancreatic neck; also extra and intrahepatic biliary dilatation to level of ampulla noted MRI obtained to rule out pancreatic mass: no masses but showed changing caliber of pancreatic duct with distal atrophy of pancreatic parenchyma, tortuosity and dilatation of the duct, underlying stricture was not excluded; distended gallbladder with sludge and small stones, common bile duct 1.4 cm without intraductal filling defects, moderate intrahepatic biliary ductal dilatation tjat may represent biliary dyskinesia. no abdominal pain, normal LFTs; per GI no aggressive invasive procedures as pt asymptomatic moderate protein/oscar malnutrition supplements RESOLVED ISSUES: aspiration pneumonia sepsis due to Enterococcus faecalis bacteremia [positive BCx 10/29, repeat BCx 11/01 and 11/12 negative] azithro 10/30-11/04, vanco 10/30-10/31, ceftriaxone 10/31-11/01, pip-don 11/01- and again 11/12-11/22, dapto 11/06-11/12 discussed with ID. Total 21d antibiotics from 11/01 completed AF/RVR was difficult to control and got diltiazem IV drip, digoxin IV, and amiodarone PO load TTE 11/04: LVEF 60-65%, normal right ventricular cavity size and systolic function, no obvious vegetation noted Still running high at 120s on diltiazem 480 mg CD daily Continue amiodarone. Currently in sinus tachycardia with abundant PACs; increased diltiazem to 480 mg CD daily on 11/22 Eliquis on hold as above thrombocytopenia likely due to infection; resolved hyperNa resolved CHRONIC ISSUES: gout continue allopurinol mood disorder continue paroxetine CODE STATUS: per ICU attending, DNR/DNI, confirmed with pt and her daughter and reaffirmed 11/20 DVT PPx; Eliquis reason for continued hospitalization: on high flow requiring weaning down as tolerated Quality Stroke Does the patient have a stroke diagnosis?: No VTE Prior VTE?: No VTE Risk Level:: Medical - moderate - high VTE Device Contraindication: Treatment Not Indicated VTE Drug Contraindication: N/A - Med Ordered
[2023-12-02 11:26] LABS: Glucose, Whole Blood 313 mg/dL (60-115)
[2023-12-02] MEDS: Docusate Sodium 100 MG CAPSULE PO (13:16)
[2023-12-02 16:19] LABS: Glucose, Whole Blood 408 mg/dL (60-115)
[2023-12-02] MEDS: Omeprazole 20 MG CAPSULE.DR PO (16:34)
[2023-12-02] MEDS: HYDROmorphone HCl 1 MG/ML SYRINGE IVPUSH (20:29)
[2023-12-02 21:16] LABS: Glucose, Whole Blood 324 mg/dL (60-115)
[2023-12-02] MEDS: Insulin Glargine,Hum.rec.anlog 100 UNIT/ML 10 ML VIAL 21 UNIT SUBCUT (21:31)
[2023-12-03] VITALS (13 sets, daily range): BP systolic 136–154; BP diastolic 61–92; PULSE 70–133; RESP 16–26; TEMP 36–36.7; O2SAT 91–99; BMI 35.6
--- NOTE | 2023-12-03 | ECG_ITS ---
Test Reason : tachycardia Blood Pressure : / mmHG Vent. Rate : 119 BPM Atrial Rate : 109 BPM P-R Int : 224 ms QRS Dur : 098 ms QT Int : 342 ms P-R-T Axes : 065 -07 064 degrees QTc Int : 481 ms Sinus tachycardia with 1st degree A-V block with frequent Premature atrial complexes Incomplete right bundle branch block Borderline ECG When compared with ECG of 24-NOV-2023 21:11, No significant changes seen Referred By: Swati Mcclain Electronically Signed By:KATHERIN PERERA MD
[2023-12-03] MEDS: oxyCODONE HCl Immed Release 5 MG TABLET PO ×4 (04:16→18:07)
[2023-12-03] MEDS: Omeprazole 20 MG CAPSULE.DR PO ×2 (05:35→16:38)
[2023-12-03 06:54] LABS: Hematocrit 33.5 % (37.0-47.0); Hemoglobin 10.7 g/dl (12.0-16.0); Mean Corpuscular HGB Conc 31.9 g/dl (31.0-35.0); Mean Corpuscular Hemoglobin 30.1 pg (27.0-33.0); Mean Corpuscular Volume 94.4 fL (80.0-98.0); Mean Platelet Volume 10.3 fL (9.4-12.3); NRBC Pct Auto 0.3 /100WBC (0.0-0.2); Platelet Count 326 X10*3/uL (160-400); Red Blood Count 3.55 X10*6/uL (4.20-5.50); Red Cell Distribution Width 16.9 % (11.0-16.0); White Blood Count 15.1 X10*3/uL (4.8-10.8)
[2023-12-03 07:10] LABS: Anion Gap 13 (12-20); Blood Urea Nitrogen 41 mg/dL (9-16); Calcium 8.8 mg/dL (8.4-10.2); Carbon Dioxide 34 mmol/L (22-29); Chloride 95 mmol/L (96-108); Creatinine Clr Calc Pharmacy 76.8; Estimated Glomerular Filt Rate > 60; Glucose Random 266 mg/dL (60-115); Potassium 3.5 mmol/L (3.3-5.1); Sodium 138 mmol/L (135-145)
[2023-12-03 07:46] LABS: Glucose, Whole Blood 283 mg/dL (60-115)
[2023-12-03] MEDS: Insulin Lispro 100 UNIT/ML 3 ML VIAL SUBCUT ×4 (08:10→19:56)
[2023-12-03] MEDS: Nicotine 14 MG PATCH.TD24 TRANSDERMA (08:11)
[2023-12-03] MEDS: Lidocaine 4 % Patch ADH..PATCH 1 PATCH TRANSDERMA (08:11)
[2023-12-03] MEDS: Nystatin Oral Susp 500,000 UNIT/5 ML ORAL.SUSP 500000 UNIT PO ×4 (08:13→19:56)
[2023-12-03] MEDS: Furosemide 40 MG/4 ML VIAL IVPUSH (08:14)
[2023-12-03] MEDS: PARoxetine HCL 20 MG TABLET PO (08:14)
[2023-12-03] MEDS: Apixaban 5 MG TABLET PO ×2 (08:15→19:55)
[2023-12-03] MEDS: Amiodarone HCL 200 MG TABLET PO (08:15)
[2023-12-03] MEDS: predniSONE 20 MG TABLET 40 MG PO (08:18)
[2023-12-03] MEDS: allopurinoL 300 MG TABLET 150 MG PO (08:18)
[2023-12-03] MEDS: 0.9 % Sodium Chloride Flush 3 ML SYRINGE IVFLUSH ×3 (08:23→20:00)
[2023-12-03] MEDS: Acetaminophen 325 MG TABLET 975 MG PO (08:27)
[2023-12-03] MEDS: guaiFENesin DM 600/30 1 TAB TAB.ER.12H PO ×2 (08:27→19:56)
[2023-12-03] MEDS: Albuterol/Iprat 2.5/0.5MG 3 ML AMPUL.NEB INHALE ×4 (08:47→21:06)
[2023-12-03] MEDS: Fluticasone/Vilanterol 100/25 BLST.W.DEV 1 PUFF INHALE (08:47)
--- NOTE | 2023-12-03 10:50 | MHC.CLN ---
F/U PT IS MODERATELY MALNOURISHED PO INTAKE 100% X4 MEALS DIET RX: 2000DM DIET GRD M/S WITH NT LIQ PER RESEARCH ANALYST PT RECEIVING ENSURE MAX BID TO PROVIDE 300KCALS, 60G PROTEIN CONTINUE TO MONITOR PO INTAKE AND ENCOURAGE SUPPLEMENTS
--- NOTE | 2023-12-03 10:50 | MHC.SLORD ---
Speech Language Pathology Order Status: MBSS scheduled for 2:15pm today. brewing technician to arrange for transport.
--- NOTE | 2023-12-03 10:57 | MHC.CM.PN ---
Per provider, pt is ready to go to [facility], CM met with pt, she is disappointed about not going right home, and seemed a little confused. CM suggested I call her grandson, she agreed. Calls placed to HCP (?grandson) Corky, no answer and no VM set up, call to dtr, message left, referrals out today to [facility].
--- NOTE | 2023-12-03 11:14 | P.PNIM_ITS ---
Subjective Subjective Date of Service: 12/03/23 Interval History: seen and evaluated this morning Has no specific complaint, maintaining O2 by nasal canula, HR on in 120s Review of Systems Unable to obtain as patient is obtunded Physical Exam 2 Vital Signs: Vital Signs: Last Vital Signs Temp 97.6 F 12/03/23 08:00 Pulse 128 H 12/03/23 10:08 Resp 20 12/03/23 08:00 BP 140/88 H 12/03/23 08:00 Pulse Ox 91 L 12/03/23 08:00 O2 Del Method Nasal Cannula 12/03/23 08:00 O2 Flow Rate 4 12/03/23 08:00 FiO2 40 12/02/23 04:00 Oxygen Flow Rate 2 11/10/23 07:30 BMI result Body Mass Index 35.6 Const: Other: Constitutional : Awake, interactive, looks more comfortable Neck : Normal inspection, Supple Cardiovascular : RRR, no JVP, trace lower extremity edema, tachycardia Respiratory : good bilateral air entry, no crackles, wheezes or rhonchi Gastrointestinal: soft, lax, Normal bowel sounds, Non tender Skin : Warm, Dry Neurological : Alert & oriented x3, No focal deficit Objective Data Active Medications Acetaminophen (Acetaminophen 325 Mg Tablet) 975 mg PO Q6H PRN PRN Reason: mild pain, headache or fever Last Admin: 12/03/23 08:27 Dose: 975 mg Documented By: IVIS Albuterol Sulfate (Albuterol Sulfate (0.083%) 2.5 Mg/3 Ml Vial.Neb) 2.5 mg INHALE Q4H PRN PRN Reason: Shortness of Breath/Wheezing Albuterol/Ipratropium (Albuterol/Iprat 2.5/0.5mg 3 Ml Ampul.Neb) 3 ml INHALE RQ4H WHILE AWAKE [facility] Last Admin: 12/03/23 08:47 Dose: 3 ml Documented By: LAYTON Allopurinol (Allopurinol 300 Mg Tablet) 150 mg PO DAILY [facility] Last Admin: 12/03/23 08:18 Dose: 150 mg Documented By: IVIS Amiodarone HCl (Amiodarone Hcl 200 Mg Tablet) 200 mg PO DAILY [facility] Last Admin: 12/03/23 08:15 Dose: 200 mg Documented By: IVIS Apixaban (Apixaban 5 Mg Tablet) 5 mg PO BID [facility] Last Admin: 12/03/23 08:15 Dose: 5 mg Documented By: IVIS Benzocaine (Throat Lozenge, Medicated Lozenge) 1 lozenge MUCOUS MEM Q2H PRN PRN Reason: Sore Throat Last Admin: 12/02/23 08:29 Dose: 1 lozenge Documented By: JAMEY Diltiazem HCl (Diltiazem Hcl Cd 240 Mg Cap.Er.Deg) 240 mg PO DAILY [facility]; Protocol Docusate Sodium (Docusate Sodium 100 Mg Capsule) 100 mg PO BID PRN PRN Reason: constipation Last Admin: 12/02/23 13:16 Dose: 100 mg Documented By: JAMEY Fluticasone/Vilanterol (Fluticasone/Vilanterol 100/25 Blst.W.Dev) 1 puff INHALE RDAILY [facility] Last Admin: 12/03/23 08:47 Dose: 1 puff Documented By: LAYTON Furosemide (Furosemide 40 Mg/4 Ml Vial) 40 mg IVPUSH DAILY [facility]; Protocol Last Admin: 12/03/23 08:14 Dose: 40 mg Documented By: IVIS Glucose (Glucose Gel 15 Gm Gel..Gram.) 15 gm PO Q15M PRN; Protocol PRN Reason: per Hypoglycemia Standing Ord. Guaifenesin/Dextromethorphan (Guaifenesin Dm 600/30 1 Tab Tab.Er.12h) 1 tab PO BID [facility] Last Admin: 12/03/23 08:27 Dose: 1 tab Documented By: IVIS Insulin Glargine (Insulin Glargine,Hum.Rec.Anlog 100 Unit/Ml 10 Ml Vial) 21 unit SUBCUT BEDTIME [facility] Last Admin: 12/02/23 21:31 Dose: 21 unit Documented By: ALEXANDRIA Insulin Human Lispro (Insulin Lispro 100 Unit/Ml 3 Ml Vial) 0 unit SUBCUT QIDACHS [facility]; Protocol Last Admin: 12/03/23 08:10 Dose: 12 unit Documented By: IVIS Lidocaine (Lidocaine 4 % Patch Adh..Patch) 1 patch TRANSDERMA DAILY [facility]; Protocol Last Admin: 12/03/23 08:11 Dose: 1 patch Documented By: IVIS Nicotine (Nicotine 14 Mg Patch.Td24) 14 mg TRANSDERMA DAILY [facility] Last Admin: 12/03/23 08:11 Dose: 14 mg Documented By: IVIS Nystatin (Nystatin Oral Susp 500,000 Unit/5 Ml Oral.Susp) 500,000 unit PO QID [facility]; Protocol Last Admin: 12/03/23 08:13 Dose: 500,000 unit Documented By: IVIS Omeprazole (Omeprazole 20 Mg Capsule.Dr) 20 mg PO BID@0630,1630 [facility] Last Admin: 12/03/23 05:35 Dose: 20 mg Documented By: ALEXANDRIA Ondansetron HCl (Ondansetron Hcl 4 Mg/2 Ml Vial) 4 mg IVPUSH Q8H PRN PRN Reason: Nausea and Vomiting Last Admin: 11/12/23 20:05 Dose: 4 mg Documented By: TRUDY-RIVLA Oxycodone HCl (Oxycodone Hcl Immed Release 5 Mg Tablet) 5 mg PO Q4H PRN PRN Reason: Pain, Moderate(Pain Scale 4-6) Last Admin: 12/03/23 08:16 Dose: 5 mg Documented By: IVIS Paroxetine HCl (Paroxetine Hcl 20 Mg Tablet) 20 mg PO DAILY@0900 [facility] Last Admin: 12/03/23 08:14 Dose: 20 mg Documented By: IVIS Prednisone (Prednisone 20 Mg Tablet) 40 mg PO DAILY [facility] Last Admin: 12/03/23 08:18 Dose: 40 mg Documented By: IVIS Sodium Chloride (0.9 % Sodium Chloride Flush 3 Ml Syringe) 3 ml IVFLUSH QSHIFT [facility] Last Admin: 12/03/23 08:23 Dose: 3 ml Documented By: IVIS Labs 12/03/23 06:31 12/03/23 06:31 Labs: Laboratory Results - last 24 hr 12/02/23 12/02/23 12/02/23 11:21 16:15 21:12 MCV MCH MCHC RDW Plt Count MPV Absolute Nucleated RBC Nucleated RBC % (auto) Anion Gap Estim Creat Clear Calc Estimated GFR POC Glucose 313 H 408 H* 324 H Random Glucose Calcium 12/03/23 12/03/23 06:31 07:40 MCV 94.4 MCH 30.1 MCHC 31.9 RDW 16.9 H Plt Count 326 MPV 10.3 Absolute Nucleated RBC 0.050 H Nucleated RBC % (auto) 0.3 H Anion Gap 13 Estim Creat Clear Calc 76.8 Estimated GFR > 60 POC Glucose 283 H Random Glucose 266 H Calcium 8.8 Assessment and Plan (1) Pulmonary edema: Status: Acute (2) Acute on chronic anemia: Status: Acute (3) Acute hypoxemic respiratory failure: Status: Acute Plan 78yo F with pAF on apixaban, COPD not on hO2, gout, HF with unknown EF, and DM2. presented with AMS, admitted for hypoxia due to CAP + COPD. developed worsening hypoxia due to aspiration and intubated on 11/13/23 . extubated 11/14/23 and stepped down to telemetry 11/15/23. developed LGIB + CHF/COPD exacerbations. 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 GI rec conservative measures Transfused 2 units 11/21 with good response in H+H; also got vit K. H+H stable. Stopped octreotide. IV PPI changed to PO. DM2 with steroid-induced hyperglycemia increased doses of correction - continue lispro and glargine hypokalemia acute, replace, monitor pancreatic abnormality as part of workup of bacteremia, CT abdomen and pelvis was done that showed abrupt change in size of pancreas with atrophy plus ductal dilatation be on pancreatic neck; also extra and intrahepatic biliary dilatation to level of ampulla noted MRI obtained to rule out pancreatic mass: no masses but showed changing caliber of pancreatic duct with distal atrophy of pancreatic parenchyma, tortuosity and dilatation of the duct, underlying stricture was not excluded; distended gallbladder with sludge and small stones, common bile duct 1.4 cm without intraductal filling defects, moderate intrahepatic biliary ductal dilatation tjat may represent biliary dyskinesia. no abdominal pain, normal LFTs; per GI no aggressive invasive procedures as pt asymptomatic moderate protein/oscar malnutrition supplements RESOLVED ISSUES: aspiration pneumonia sepsis due to Enterococcus faecalis bacteremia [positive BCx 10/29, repeat BCx 11/01 and 11/12 negative] azithro 10/30-11/04, vanco 10/30-10/31, ceftriaxone 10/31-11/01, pip-don 11/01- and again 11/12-11/22, dapto 11/06-11/12 discussed with ID. Total 21d antibiotics from 11/01 completed AF/RVR was difficult to control and got diltiazem IV drip, digoxin IV, and amiodarone PO load TTE 11/04: LVEF 60-65%, normal right ventricular cavity size and systolic function, no obvious vegetation noted Still running high at 120s on diltiazem 480 mg CD daily Continue amiodarone. Currently in sinus tachycardia with abundant PACs; increased diltiazem to 480 mg CD daily on 11/22 Eliquis on hold as above thrombocytopenia likely due to infection; resolved hyperNa resolved CHRONIC ISSUES: gout continue allopurinol mood disorder continue paroxetine CODE STATUS: per ICU attending, DNR/DNI, confirmed with pt and her daughter and reaffirmed 11/20 DVT PPx; Eliquis reason for continued hospitalization: on high flow requiring weaning down as tolerated Quality Stroke Does the patient have a stroke diagnosis?: No VTE Prior VTE?: No VTE Risk Level:: Medical - moderate - high VTE Device Contraindication: Treatment Not Indicated VTE Drug Contraindication: N/A - Med Ordered
[2023-12-03] MEDS: dilTIAZem HCL CD 240 MG CAP.ER.DEG PO (11:28)
[2023-12-03 11:33] LABS: Glucose, Whole Blood 178 mg/dL (60-115)
--- NOTE | 2023-12-03 15:33 | MHC.SLORD ---
Speech Language Pathology Order Status: MBSS completed. Silent aspiration observed on Thin Liquids. Recommending upgraded to Chopped/Advanced Solids (NDD3) and [place]-Thick Liquids. Continue strict aspiration precautions. Full report to follow.
[2023-12-03 16:17] LABS: Glucose, Whole Blood 526 mg/dL (60-115)
[2023-12-03 16:28] LABS: Glucose, Whole Blood 509 mg/dL (60-115)
--- NOTE | 2023-12-03 17:12 | MHC.SL.IMP ---
Date of Plan of Treatment: 12/03/23 Onset of Symptoms/Illness: 10/30/23 Date Treatment Started: 12/03/23 Admitting Diagnosis: Dysphagia Primary Speech & Language Diagnosis: R13.10 Dysphagia Reason for Today's Visit: 99278 Modified Barium Swallow Study ? Comments: 4L NC Pre-evaluation Dietary Consistencies: Grnd/Mech Altered (NDD2) Pre-evaluation Liquid Consistency: [place] Thick Pre-evaluation Medication Administration: Whole with Puree Oral Motor Exam Facial Symmetry: Normal for Patient Symmetrical Facial Movement: Controlled ? Oral-Facial Facial Miscellaneous Observations: Mouth Occlusion: Normal Oral-Facial Teeth Characteristics: Edentulous Oral-Facial Teeth Miscellaneous Observation: Oral-Facial Lip Pucker Description: Normal Oral-Facial Smile (Lips) Description: Normal Oral-Facial Puff Cheeks Description: Normal ? Oral-Facial Lip Miscellaneous Comment: Tongue Size: Normal Tongue Frenum Length: Tongue Excursion Description: Normal Tongue Range of Movement Description: Normal Tongue Speed of Movement Description: Normal Tongue Strength of Movement (against opposing pressure): Normal Tongue Movement Characteristics: Normal/Absent ? Tongue Movement Miscellaneous Observation: Oral Expression Ability: Mild Impairment Is patient able to manage secretions?: Yes Is patient able to produce volitional cough?: Yes Food and Liquid Trials: Oral Impairment: Lip Closure: 1=Interlabial escape; no progression to anterior tip Oral Impairment: Tongue Control During Bolus Hold: 1=Escape to lateral buccal cavity/floor of mouth (FOM) Oral Impairment: Bolus Preparation/Mastication: 3=Minimal chewing/mashing with majority of bolus unchewed Oral Impairment: Bolus Transport/Lingual Motion: 0=Brisk tongue motion Oral Impairment: Oral Residue: 1=Trace residue lining oral structures Oral Impairment:Initiation of Pharyngeal Swallow: 3=Bolus head in pyriforms Pharyngeal Impairment: Soft Palate Elevation: 0=No bolus between soft palate (SP)/pharyngeal wall (PW) Pharyngeal Impairment: Laryngeal Elevation: 1=Partial thyroid cartilage/arytenoids to epiglottic petiole movement Pharyngeal Impairment: Anterior Hyoid Excursion: 1=Partial anterior movement Pharyngeal Impairment: Epiglottic Movement: 0=Complete inversion Pharyngeal Impairment: Laryngeal Vestibular Closure:: 1=Incomplete: narrow column air/contrast in laryngeal vestibule Pharyngeal Impairment: Pharyngeal Stripping Wave: 0=Present: complete Pharyngeal Impairment: Pharyngeal Contraction: Did not test Pharyngeal Impairment: Pharyngoesophageal Segment Openin=Partial distention/partial duration: partial obstruction of flow Pharyngeal Impairment: Tongue Base (TB) Retraction: 3=Wide column of contrast/air between TB and posterior PW Pharyngeal Impairment: Pharyngeal Residue: Did not test Pharyngeal Impairment: Esophageal Clearance Upright Position: Did not test Impressions and Recommendations Clinical Observations: Pt is 78 year old female who presented to ED on 10/29 with ams, productive cough ~1 month, fever, chills, sweats, chest pain, worsened back pain. On 11/12 pt presenting w/ lethargy, difficulty managing secretions, and was excessively aspirating on the secretions which led to intubation. Pt extubated on 11/13 around noon. Per MD note on 11/14, pt presenting w/ good cough reflex. 11/12 CXR reported Patchy airspace opacities in both lungs, left greater than right, concerning for pneumonia or aspiration. She has been weaning off of High Flow O2 and comes to the study today with 4L Nasal Canula only. Study Number: 1 Age: 49 Gender: Female MEDICAL HISTORY: COVID-19 Positive: No Current (pre-evaluation) Intake/Diet: Pre-Study Functional Oral Intake Scale (FOIS): 7- Total oral intake with no restrictions MBSImP ID: [id number] Results: Lip closure for intraoral bolus containment resulted in interlabial escape, without progression to the anterior lip.? Tongue control during bolus hold maintained a cohesive bolus held between tongue to palate seal.? Bolus preparation and mastication resulted in timely and efficient chewing and mashing.? Bolus transport/lingual motion was with brisk tongue motion.? Oral residue was a trace, lining oral structures.? Initiation of the pharyngeal swallow occurred when the bolus head was in the pyriform sinuses.? Soft palate elevation resulted in no bolus between the soft palate and the pharyngeal wall.? Laryngeal elevation was decreased, with partial superior movement of the thyroid cartilage/partial approximation of the arytenoids to the epiglottic petiole.? Anterior hyoid excursion demonstrated complete anterior movement.? Epiglottic movement resulted in complete inversion.? Laryngeal vestibular closure was incomplete, with a narrow column of air/contrast noted within the laryngeal vestibule at the height of the swallow.? Pharyngeal stripping wave was present and complete.? Pharyngeal contraction could not be determined due to logistical reasons not related to physiologic impairment.? Pharyngoesophageal segment opening demonstrated partial distension/partial duration, with partial obstruction of bolus flow.? Tongue base retraction allowed a narrow column of contrast or air between the retracted tongue base and the posterior pharyngeal wall.? Pharyngeal residue was a collection of residue within or on pharyngeal structures.? Esophageal clearance in the upright position could not be assessed due to logistical reasons not related to physiologic impairment.? Oral Impairment Score:? 3 Pharyngeal Impairment Score:? 7 (absence of score, component 13) Esophageal Impairment Score:?? --- (absence of score, component 17) Laryngeal Penetration and Aspiration: Neither penetration nor aspiration was observed in today's study with Cookie, [place]-thick. Both Penetration and Aspiration were observed in today's study. [place]-thick Contrast entered the airway, remained above the vocal folds, and was ejected from the airway. Thin Contrast entered the airway, passed below the vocal folds, and no effort was made to eject. SUMMARY: Pt was shown to have silent aspiration (no cough reflex triggered) on her second attempt at Thin Liquids via teaspoon with cues for bolus hold. Aspiration was eliminated under the same conditions with the use of [place]-Thick Liquids, as well as under uncontrolled and consecutive cup sips with the use of [place]-Thick Liquids. She demonstrated good oral preparation of an advanced solid (cookie with barium contrast) with mild oral and pharyngeal residue. She tolerated consecutive sips of [place]-Thick Liquids in the presence of oral and pharyngeal residue with penetration only that was self-ejected immediately after the swallow. She is deemed unsafe to upgrade to Thin Liquids particularly in the setting of silent aspiration. She is recommended upgrade of her solids to Chopped/Advanced (NDD3) to promote her safest, least-restrictive diet. ? Liquid Intake Recommendation: [place] Thick ? Liquid Intake Strategies: Small Sips ? Dietary Recommendations: Chopped/Advanced (NDD3) ? Medication Administration: Whole with Puree ? Please contact the pharmacy regarding appropriate crushable or liquid drug formulations that are available whenever modified delivery is recommended. ? Compensatory Strategies Recommended: Sitting Upright (90 deg) No Straw Liquids from Cup Small Bites and Sips Alternate Liquids/Solids Rate of Ingestion Change Avoid Specific Foods ? Supervision during eating and or drinking: Total Assistance (1:1) ? Recommended Treatments: ? Oral Motor Exercises Base of Tongue Exercises Compens. Strategy Educat. Vocal Cord Adduction Exer ? Recommendation for Speech Therapy: ? Inpatient Speech Therapy Speech Therapy through Rehab Facility ? Text Comment: Recommend UPGRADE SOLIDS to CHOPPED/ADVANCED (NDD3) and MAINTAIN [place]CT[place]-THICK LIQUID restrictions. Strict aspiration precautions apply including; out of bed for meals, meds with puree medium, close supervision for overt s/s of aspiration, slow pace, small bites/sips, alternate bites and sips. SHOT FIREMAN will continue to follow. Pt may benefit from therapeutic exercises, however her ability to participate in them independently is guarded given her mental status changes. ? Frequency/Duration: Daily ? Timeline to reassess: PRN Television Production Technician Clinician/Clinical Fellow: No Supervisory Statement: N/A Speech Language Pathologist: Rodríguez Gonsalves M.A., MAYURI-SHOT FIREMAN
[2023-12-03 17:20] LABS: Glucose, Whole Blood 501 mg/dL (60-115)
[2023-12-03] MEDS: Insulin Regular, Human 100 UNIT/ML 10 ML VIAL 7 UNIT IVPUSH (17:58)
[2023-12-03 18:12] LABS: Anion Gap 16 (12-20); Blood Urea Nitrogen 41 mg/dL (9-16); Calcium 8.7 mg/dL (8.4-10.2); Carbon Dioxide 29 mmol/L (22-29); Chloride 94 mmol/L (96-108); Creatinine Clr Calc Pharmacy 62.6; Estimated Glomerular Filt Rate > 60; Glucose Random 556 mg/dL (60-115); Sodium 135 mmol/L (135-145)
[2023-12-03 18:20] LABS: Glucose, Whole Blood 457 mg/dL (60-115)
[2023-12-03 19:45] LABS: Glucose, Whole Blood 332 mg/dL (60-115)
[2023-12-03] MEDS: Insulin Glargine,Hum.rec.anlog 100 UNIT/ML 10 ML VIAL 21 UNIT SUBCUT (19:56)
--- NOTE | 2023-12-03 20:20 | ECG_ITS ---
Test Reason : rapid afib Blood Pressure : / mmHG Vent. Rate : 120 BPM Atrial Rate : 000 BPM P-R Int : 000 ms QRS Dur : 096 ms QT Int : 336 ms P-R-T Axes : 000 -09 066 degrees QTc Int : 474 ms Sinus tachycardia with Premature atrial complexes Incomplete right bundle branch block Abnormal ECG When compared with ECG of 03-DEC-2023 20:19, No significant changes seen Referred By: Som Dumont Electronically Signed By:KATHERIN PERERA MD
[2023-12-03] MEDS: dilTIAZem HCL 60 MG TABLET PO (21:17)
[2023-12-03 22:32] LABS: Glucose, Whole Blood 157 mg/dL (60-115)
[2023-12-04] VITALS (11 sets, daily range): BP systolic 122–152; BP diastolic 60–81; PULSE 88–122; RESP 18–20; TEMP 36–36.4; O2SAT 92–100; BMI 16.5
[2023-12-04 00:07] LABS: Glucose, Whole Blood 121 mg/dL (60-115)
[2023-12-04] MEDS: Dextrose 10 % 250 ML 750 ML IV (01:08)
[2023-12-04 03:17] LABS: Glucose, Whole Blood 266 mg/dL (60-115)
[2023-12-04] MEDS: dilTIAZem HCL CD 240 MG CAP.ER.DEG PO ×2 (04:00→08:11)
[2023-12-04] MEDS: oxyCODONE HCl Immed Release 5 MG TABLET PO ×5 (04:02→21:50)
[2023-12-04] MEDS: Omeprazole 20 MG CAPSULE.DR PO (05:27)
--- NOTE | 2023-12-04 05:36 | PC.NURSE ---
Patients heart rate at start of shift was sustaining 120-140s. Patient reports feeling asymptomatic. Dr. Escobar notified. EKG ordered and obtained. Cardizem 80mg PO ordered and administered. At 03:30 heart rate sustaining 100-120s. Dr. Escobar notified, ordered to administer Cardizem 240mg PO and administered. Patient reports feeling asymptomatic and resting in bed.
[2023-12-04 07:32] LABS: Glucose, Whole Blood 230 mg/dL (60-115)
[2023-12-04] MEDS: Nystatin Oral Susp 500,000 UNIT/5 ML ORAL.SUSP 500000 UNIT PO ×4 (08:10→21:42)
[2023-12-04] MEDS: Apixaban 5 MG TABLET PO ×2 (08:10→21:42)
[2023-12-04] MEDS: PARoxetine HCL 20 MG TABLET PO (08:11)
[2023-12-04] MEDS: predniSONE 20 MG TABLET 40 MG PO (08:12)
[2023-12-04] MEDS: Amiodarone HCL 200 MG TABLET PO (08:12)
[2023-12-04] MEDS: guaiFENesin DM 600/30 1 TAB TAB.ER.12H PO ×2 (08:12→21:42)
[2023-12-04] MEDS: Albuterol/Iprat 2.5/0.5MG 3 ML AMPUL.NEB INHALE ×4 (08:13→19:59)
[2023-12-04] MEDS: Lidocaine 4 % Patch ADH..PATCH 1 PATCH TRANSDERMA (08:13)
[2023-12-04] MEDS: Nicotine 14 MG PATCH.TD24 TRANSDERMA (08:13)
[2023-12-04] MEDS: Fluticasone/Vilanterol 100/25 BLST.W.DEV 1 PUFF INHALE (08:13)
[2023-12-04] MEDS: Furosemide 40 MG/4 ML VIAL IVPUSH (08:13)
[2023-12-04] MEDS: Insulin Glargine,Hum.rec.anlog 100 UNIT/ML 10 ML VIAL 10 UNIT SUBCUT (08:15)
[2023-12-04] MEDS: Insulin Lispro 100 UNIT/ML 3 ML VIAL SUBCUT ×4 (08:16→21:43)
[2023-12-04] MEDS: 0.9 % Sodium Chloride Flush 3 ML SYRINGE IVFLUSH ×2 (08:16→16:12)
[2023-12-04] MEDS: Acetaminophen 325 MG TABLET 975 MG PO ×2 (08:17→14:46)
[2023-12-04] MEDS: allopurinoL 300 MG TABLET 150 MG PO (08:34)
--- NOTE | 2023-12-04 08:52 | HO.PM.IMPN ---
Subjective Subjective Date of Service: 12/04/23 Interval History: Overall doing better, less sob, had hyperglycemia yesterday and required additional insulin and blood sugar is better controlled now Review of Systems Unable to obtain as patient is obtunded Physical Exam Vital Signs: Vital Signs: Last Vital Signs Temp 97.2 F 12/04/23 08:00 Pulse 122 H 12/04/23 08:14 Resp 20 12/04/23 08:14 BP 152/62 H 12/04/23 08:00 Pulse Ox 96 12/04/23 08:00 O2 Del Method CPAP 12/04/23 08:00 O2 Flow Rate 4 12/04/23 08:00 FiO2 40 12/02/23 04:00 Oxygen Flow Rate 2 11/10/23 07:30 BMI result Body Mass Index 16.5 Objective Data Active Medications Acetaminophen (Acetaminophen 325 Mg Tablet) 975 mg PO Q6H PRN PRN Reason: mild pain, headache or fever Last Admin: 12/04/23 08:17 Dose: 975 mg Documented By: IVIS Albuterol Sulfate (Albuterol Sulfate (0.083%) 2.5 Mg/3 Ml Vial.Neb) 2.5 mg INHALE Q4H PRN PRN Reason: Shortness of Breath/Wheezing Albuterol/Ipratropium (Albuterol/Iprat 2.5/0.5mg 3 Ml Ampul.Neb) 3 ml INHALE RQ4H WHILE AWAKE [facility] Last Admin: 12/04/23 08:13 Dose: 3 ml Documented By: MIKAYLA Allopurinol (Allopurinol 300 Mg Tablet) 150 mg PO DAILY [facility] Last Admin: 12/04/23 08:34 Dose: 150 mg Documented By: IVIS Amiodarone HCl (Amiodarone Hcl 200 Mg Tablet) 200 mg PO DAILY [facility] Last Admin: 12/04/23 08:12 Dose: 200 mg Documented By: IVIS Apixaban (Apixaban 5 Mg Tablet) 5 mg PO BID [facility] Last Admin: 12/04/23 08:10 Dose: 5 mg Documented By: IVIS Benzocaine (Throat Lozenge, Medicated Lozenge) 1 lozenge MUCOUS MEM Q2H PRN PRN Reason: Sore Throat Last Admin: 12/02/23 08:29 Dose: 1 lozenge Documented By: JAMEY Diltiazem HCl (Diltiazem Hcl Cd 240 Mg Cap.Er.Deg) 240 mg PO DAILY [facility]; Protocol Last Admin: 12/04/23 08:11 Dose: 240 mg Documented By: IVIS Docusate Sodium (Docusate Sodium 100 Mg Capsule) 100 mg PO BID PRN PRN Reason: constipation Last Admin: 12/02/23 13:16 Dose: 100 mg Documented By: JAMEY Fluticasone/Vilanterol (Fluticasone/Vilanterol 100/25 Blst.W.Dev) 1 puff INHALE RDAILY [facility] Last Admin: 12/04/23 08:13 Dose: 1 puff Documented By: MIKAYLA Furosemide (Furosemide 40 Mg/4 Ml Vial) 40 mg IVPUSH DAILY [facility]; Protocol Last Admin: 12/04/23 08:13 Dose: 40 mg Documented By: IVIS Glucose (Glucose Gel 15 Gm Gel..Gram.) 15 gm PO Q15M PRN; Protocol PRN Reason: per Hypoglycemia Standing Ord. Guaifenesin/Dextromethorphan (Guaifenesin Dm 600/30 1 Tab Tab.Er.12h) 1 tab PO BID [facility] Last Admin: 12/04/23 08:12 Dose: 1 tab Documented By: IVIS Insulin Glargine (Insulin Glargine,Hum.Rec.Anlog 100 Unit/Ml 10 Ml Vial) 21 unit SUBCUT BEDTIME [facility] Last Admin: 12/03/23 19:56 Dose: 21 unit Documented By: ALEXANDRIA Insulin Glargine (Insulin Glargine,Hum.Rec.Anlog 100 Unit/Ml 10 Ml Vial) 10 unit SUBCUT DAILY [facility] Last Admin: 12/04/23 08:15 Dose: 10 unit Documented By: IVIS Insulin Human Lispro (Insulin Lispro 100 Unit/Ml 3 Ml Vial) 0 unit SUBCUT QIDACHS [facility]; Protocol Last Admin: 12/04/23 08:16 Dose: 8 unit Documented By: IVIS Lidocaine (Lidocaine 4 % Patch Adh..Patch) 1 patch TRANSDERMA DAILY [facility]; Protocol Last Admin: 12/04/23 08:13 Dose: 1 patch Documented By: IVIS Nicotine (Nicotine 14 Mg Patch.Td24) 14 mg TRANSDERMA DAILY [facility] Last Admin: 12/04/23 08:13 Dose: 14 mg Documented By: IVIS Nystatin (Nystatin Oral Susp 500,000 Unit/5 Ml Oral.Susp) 500,000 unit PO QID [facility]; Protocol Last Admin: 12/04/23 08:10 Dose: 500,000 unit Documented By: IVIS Omeprazole (Omeprazole 20 Mg Capsule.Dr) 20 mg PO BID@0630,1630 [facility] Last Admin: 12/04/23 05:27 Dose: 20 mg Documented By: ALEXANDRIA Ondansetron HCl (Ondansetron Hcl 4 Mg/2 Ml Vial) 4 mg IVPUSH Q8H PRN PRN Reason: Nausea and Vomiting Last Admin: 11/12/23 20:05 Dose: 4 mg Documented By: TRUDY-RIVAKANKSHA Oxycodone HCl (Oxycodone Hcl Immed Release 5 Mg Tablet) 5 mg PO Q4H PRN PRN Reason: Pain, Moderate(Pain Scale 4-6) Last Admin: 12/04/23 08:09 Dose: 5 mg Documented By: IVIS Paroxetine HCl (Paroxetine Hcl 20 Mg Tablet) 20 mg PO DAILY@0900 [facility] Last Admin: 12/04/23 08:11 Dose: 20 mg Documented By: IVIS Prednisone (Prednisone 20 Mg Tablet) 40 mg PO DAILY [facility] Last Admin: 12/04/23 08:12 Dose: 40 mg Documented By: IVIS Sodium Chloride (0.9 % Sodium Chloride Flush 3 Ml Syringe) 3 ml IVFLUSH QSHIFT [facility] Last Admin: 12/04/23 08:16 Dose: 3 ml Documented By: IVIS Labs 12/03/23 06:31 12/03/23 17:11 Labs: Laboratory Results - last 24 hr 12/03/23 12/03/23 12/03/23 11:16 16:13 16:23 Anion Gap Estim Creat Clear Calc Estimated GFR POC Glucose 178 H 526 H* 509 H* Random Glucose Calcium 12/03/23 12/03/23 12/03/23 17:11 17:15 18:15 Anion Gap 16 Estim Creat Clear Calc 62.6 Estimated GFR > 60 POC Glucose 501 H* 457 H* Random Glucose 556 H* Calcium 8.7 12/03/23 12/03/23 12/04/23 19:42 22:28 00:01 Anion Gap Estim Creat Clear Calc Estimated GFR POC Glucose 332 H 157 H 121 H Random Glucose Calcium 12/04/23 12/04/23 03:13 07:21 Anion Gap Estim Creat Clear Calc Estimated GFR POC Glucose 266 H 230 H Random Glucose Calcium Assessment and Plan (1) Pulmonary edema: Status: Acute (2) Acute on chronic anemia: Status: Acute (3) Acute hypoxemic respiratory failure: Status: Acute Plan 78yo F with pAF on apixaban, COPD not on hO2, gout, HF with unknown EF, and DM2. presented with AMS, admitted for hypoxia due to CAP + COPD. developed worsening hypoxia due to aspiration and intubated on 11/13/23 . extubated 11/14/23 and stepped down to telemetry 11/15/23. developed LGIB + CHF/COPD exacerbations. still on HFNC but gradually weaning ACTIVE ISSUES: Acute hypoxic respiratory failure due to acute/chronic HFpEF and acute COPD exacerbation -Overall has improved. -last CXR 12/01 interstitial pattern d/t chf -continue IV Lasix -wean of Prednisone, continue bronchodilators by Neb -CPAP at night and at bedtime -incentive spirometry Swallowing problem--GAME AUTHOR 12/02 silent aspiration -Liquid Intake Recommendation: [place] Thick -Liquid Intake Strategies: Small Sips -Dietary Recommendations: Chopped/Advanced (NDD3) - Medication Administration: Whole with Puree ? ABLA d/t LGIB, resolved. -GI recommends conservative Rx -tolerating eliquis thus far -s/p vit k, octreatide and iV PPI, now PO PPI DM2 with steroid-induced hyperglycemia, hyperglycemia yesterday d/t glucose given at modified barium -Change Lantus to 21 at HS and 10 in AM and rely less on sliding scale, reduce steroid hypokalemia, replaced and resolved. pancreatic abnormality - CT Abdomen/Pelvis: Abrupt pancreatic size change with atrophy and ductal dilation beyond the neck; extra and intrahepatic biliary dilation up to the ampulla. - MRI: No pancreatic masses; changing pancreatic duct caliber with distal atrophy and ductal tortuosity and dilation, possible stricture. Distended gallbladder with sludge and small stones, common bile duct 1.4 cm with no intraductal defects, moderate intrahepatic biliary ductal dilation possibly due to biliary dyskinesia. - No abdominal pain, normal LFTs. Per GI, no aggressive invasive procedures recommended as the patient is asymptomatic. AF/RVR--difficulty to control, has been on iv cardizem, digoxin IV and eventually loaded with PO amiodarone. -TTE 11/04: LVEF 60-65%, normal right ventricular cavity size and systolic function, no obvious vegetation noted -HR still -Continue amiodarone -continue cardizem, adjust for optimal HR -continue Eliquis and watch for bleedfing moderate protein/oscar malnutrition -supplements RESOLVED ISSUES: aspiration pneumonia sepsis due to Enterococcus faecalis bacteremia [positive BCx 10/29, repeat BCx 11/01 and 11/12 negative] azithro 10/30-11/04, vanco 10/30-10/31, ceftriaxone 10/31-11/01, pip-don 11/01- and again 11/12-11/22, dapto 11/06-11/12 discussed with ID. Total 21d antibiotics from 11/01 completed thrombocytopenia likely due to infection; resolved hyperNa resolved CHRONIC ISSUES: gout continue allopurinol mood disorder continue paroxetine CODE STATUS: per ICU attending, DNR/DNI, confirmed with pt and her daughter and reaffirmed 11/20 DVT PPx; Eliquis reason for continued hospitalization: on high flow requiring weaning down as tolerated Quality Stroke Does the patient have a stroke diagnosis?: No VTE Prior VTE?: No VTE Risk Level:: Medical - moderate - high VTE Device Contraindication: Treatment Not Indicated VTE Drug Contraindication: N/A - Med Ordered
[2023-12-04 11:16] LABS: Glucose, Whole Blood 180 mg/dL (60-115)
[2023-12-04 15:55] LABS: Glucose, Whole Blood 457 mg/dL (60-115)
[2023-12-04 18:05] LABS: Glucose, Whole Blood 326 mg/dL (60-115)
[2023-12-04 20:45] LABS: Glucose, Whole Blood 309 mg/dL (60-115)
[2023-12-04] MEDS: Insulin Glargine,Hum.rec.anlog 100 UNIT/ML 10 ML VIAL 21 UNIT SUBCUT (21:42)
[2023-12-05] VITALS (14 sets, daily range): BP systolic 138–170; BP diastolic 63–95; PULSE 75–126; RESP 18–22; TEMP 36.1–36.6; O2SAT 89–100; BMI 35.8
[2023-12-05] MEDS: Omeprazole 20 MG CAPSULE.DR PO (05:45)
[2023-12-05] MEDS: 0.9 % Sodium Chloride Flush 3 ML SYRINGE IVFLUSH ×3 (05:45→17:30)
[2023-12-05] MEDS: oxyCODONE HCl Immed Release 5 MG TABLET PO ×3 (05:50→21:48)
[2023-12-05 07:32] LABS: Glucose, Whole Blood 240 mg/dL (60-115)
[2023-12-05] MEDS: Fluticasone/Vilanterol 100/25 BLST.W.DEV 1 PUFF INHALE (07:45)
[2023-12-05] MEDS: Albuterol/Iprat 2.5/0.5MG 3 ML AMPUL.NEB INHALE ×2 (07:45→11:45)
[2023-12-05] MEDS: Insulin Glargine,Hum.rec.anlog 100 UNIT/ML 10 ML VIAL 10 UNIT SUBCUT (08:41)
[2023-12-05] MEDS: Insulin Lispro 100 UNIT/ML 3 ML VIAL SUBCUT ×4 (08:41→21:05)
[2023-12-05] MEDS: Nystatin Oral Susp 500,000 UNIT/5 ML ORAL.SUSP 500000 UNIT PO ×3 (08:42→21:05)
[2023-12-05] MEDS: Furosemide 40 MG/4 ML VIAL IVPUSH (08:42)
[2023-12-05] MEDS: Apixaban 5 MG TABLET PO ×2 (08:43→21:05)
[2023-12-05] MEDS: Amiodarone HCL 200 MG TABLET PO (08:43)
[2023-12-05] MEDS: dilTIAZem HCL CD 240 MG CAP.ER.DEG PO (08:43)
[2023-12-05] MEDS: allopurinoL 300 MG TABLET 150 MG PO (08:43)
[2023-12-05] MEDS: guaiFENesin DM 600/30 1 TAB TAB.ER.12H PO ×2 (08:43→21:05)
[2023-12-05] MEDS: PARoxetine HCL 20 MG TABLET PO (08:44)
[2023-12-05] MEDS: Nicotine 14 MG PATCH.TD24 TRANSDERMA (08:44)
[2023-12-05] MEDS: Lidocaine 4 % Patch ADH..PATCH 1 PATCH TRANSDERMA (08:44)
--- NOTE | 2023-12-05 09:39 | P.PNIM_ITS ---
Subjective Subjective Date of Service: 12/05/23 Interval History: f/u on acute hypoxic respiratory failure, copd, chf, interval history: overall continue to be sob, very deconditioned, not participating in physical activities Physical Exam 2 Vital Signs: Vital Signs: Last Vital Signs Temp 97.0 F 12/05/23 07:52 Pulse 113 H 12/05/23 08:43 Resp 20 12/05/23 07:52 BP 163/76 H 12/05/23 08:43 Pulse Ox 92 12/05/23 07:52 O2 Del Method Nasal Cannula 12/05/23 07:52 O2 Flow Rate 3 12/05/23 07:52 FiO2 40 12/02/23 04:00 Oxygen Flow Rate 2 11/10/23 07:30 BMI result Body Mass Index 35.8 Const: Other: Constitutional : Awake, interactive, looks more comfortable Neck : Normal inspection, Supple Cardiovascular : RRR, no JVP, trace lower extremity edema, tachycardia Respiratory : good bilateral air entry, no crackles, wheezes or rhonchi Gastrointestinal: soft, lax, Normal bowel sounds, Non tender Skin : Warm, Dry Neurological : Alert & oriented x3, No focal deficit Objective Data Active Medications Acetaminophen (Acetaminophen 325 Mg Tablet) 975 mg PO Q6H PRN PRN Reason: mild pain, headache or fever Last Admin: 12/04/23 14:46 Dose: 975 mg Documented By: IVIS Albuterol Sulfate (Albuterol Sulfate (0.083%) 2.5 Mg/3 Ml Vial.Neb) 2.5 mg INHALE Q4H PRN PRN Reason: Shortness of Breath/Wheezing Albuterol/Ipratropium (Albuterol/Iprat 2.5/0.5mg 3 Ml Ampul.Neb) 3 ml INHALE RQ4H WHILE AWAKE [facility] Last Admin: 12/05/23 07:45 Dose: 3 ml Documented By: GRETA Allopurinol (Allopurinol 300 Mg Tablet) 150 mg PO DAILY [facility] Last Admin: 12/05/23 08:43 Dose: 150 mg Documented By: JAMEY Amiodarone HCl (Amiodarone Hcl 200 Mg Tablet) 200 mg PO DAILY [facility] Last Admin: 12/05/23 08:43 Dose: 200 mg Documented By: JAMEY Apixaban (Apixaban 5 Mg Tablet) 5 mg PO BID [facility] Last Admin: 12/05/23 08:43 Dose: 5 mg Documented By: JAMEY Benzocaine (Throat Lozenge, Medicated Lozenge) 1 lozenge MUCOUS MEM Q2H PRN PRN Reason: Sore Throat Last Admin: 12/02/23 08:29 Dose: 1 lozenge Documented By: JAMEY Diltiazem HCl (Diltiazem Hcl Cd 240 Mg Cap.Er.Deg) 240 mg PO DAILY [facility]; Protocol Last Admin: 12/05/23 08:43 Dose: 240 mg Documented By: JAMEY Docusate Sodium (Docusate Sodium 100 Mg Capsule) 100 mg PO BID PRN PRN Reason: constipation Last Admin: 12/02/23 13:16 Dose: 100 mg Documented By: JAMEY Fluticasone/Vilanterol (Fluticasone/Vilanterol 100/25 Blst.W.Dev) 1 puff INHALE RDAILY [facility] Last Admin: 12/05/23 07:45 Dose: 1 puff Documented By: GRETA Furosemide (Furosemide 40 Mg/4 Ml Vial) 40 mg IVPUSH DAILY [facility]; Protocol Last Admin: 12/05/23 08:42 Dose: 40 mg Documented By: JAMEY Glucose (Glucose Gel 15 Gm Gel..Gram.) 15 gm PO Q15M PRN; Protocol PRN Reason: per Hypoglycemia Standing Ord. Guaifenesin/Dextromethorphan (Guaifenesin Dm 600/30 1 Tab Tab.Er.12h) 1 tab PO BID [facility] Last Admin: 12/05/23 08:43 Dose: 1 tab Documented By: JAMEY Insulin Glargine (Insulin Glargine,Hum.Rec.Anlog 100 Unit/Ml 10 Ml Vial) 21 unit SUBCUT BEDTIME [facility] Last Admin: 12/04/23 21:42 Dose: 21 unit Documented By: PATRICE Comments: BS 309 Insulin Glargine (Insulin Glargine,Hum.Rec.Anlog 100 Unit/Ml 10 Ml Vial) 10 unit SUBCUT DAILY [facility] Last Admin: 12/05/23 08:41 Dose: 10 unit Documented By: JAMEY Insulin Human Lispro (Insulin Lispro 100 Unit/Ml 3 Ml Vial) 0 unit SUBCUT QIDACHS [facility]; Protocol Last Admin: 12/05/23 08:41 Dose: 12 unit Documented By: JAMEY Lidocaine (Lidocaine 4 % Patch Adh..Patch) 1 patch TRANSDERMA DAILY [facility]; Protocol Last Admin: 12/05/23 08:44 Dose: 1 patch Documented By: JAMEY Nicotine (Nicotine 14 Mg Patch.Td24) 14 mg TRANSDERMA DAILY [facility] Last Admin: 12/05/23 08:44 Dose: 14 mg Documented By: JAMEY Nystatin (Nystatin Oral Susp 500,000 Unit/5 Ml Oral.Susp) 500,000 unit PO QID [facility]; Protocol Last Admin: 12/05/23 08:42 Dose: 500,000 unit Documented By: JAMEY Omeprazole (Omeprazole 20 Mg Capsule.Dr) 20 mg PO BID@0630,1630 [facility] Last Admin: 12/05/23 05:45 Dose: 20 mg Documented By: PATRICE Ondansetron HCl (Ondansetron Hcl 4 Mg/2 Ml Vial) 4 mg IVPUSH Q8H PRN PRN Reason: Nausea and Vomiting Last Admin: 11/12/23 20:05 Dose: 4 mg Documented By: TRUDY-SUE Oxycodone HCl (Oxycodone Hcl Immed Release 5 Mg Tablet) 5 mg PO Q4H PRN PRN Reason: Pain, Moderate(Pain Scale 4-6) Last Admin: 12/05/23 05:50 Dose: 5 mg Documented By: PATRICE Paroxetine HCl (Paroxetine Hcl 20 Mg Tablet) 20 mg PO DAILY@0900 [facility] Last Admin: 12/05/23 08:44 Dose: 20 mg Documented By: JAMEY Sodium Chloride (0.9 % Sodium Chloride Flush 3 Ml Syringe) 3 ml IVFLUSH QSHIFT [facility] Last Admin: 12/05/23 08:42 Dose: 3 ml Documented By: JAMEY Labs 12/03/23 06:31 12/03/23 17:11 Labs: Laboratory Results - last 24 hr 12/04/23 12/04/23 12/04/23 11:08 15:50 18:01 POC Glucose 180 H 457 H* 326 H 12/04/23 12/05/23 20:41 07:05 POC Glucose 309 H 240 H Assessment and Plan (1) Pulmonary edema: Status: Acute (2) Acute on chronic anemia: Status: Acute (3) Acute hypoxemic respiratory failure: Status: Acute Plan 78yo F with pAF on apixaban, COPD not on hO2, gout, HF with unknown EF, and DM2. presented with AMS, admitted for hypoxia due to CAP + COPD. developed worsening hypoxia due to aspiration and intubated on 11/13/23 . extubated 11/14/23 and stepped down to telemetry 11/15/23. developed LGIB + CHF/COPD exacerbations. 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 ABLA d/t LGIB, resolved. -GI recommends conservative Rx -tolerating eliquis thus far -s/p vit k, octreatide and iV PPI, now PO PPI DM2 with steroid-induced hyperglycemia, hyperglycemia yesterday d/t glucose given at modified barium -Change Lantus to 21 at HS and 15 in AM and rely less on sliding scale, reduce steroid hypokalemia, replaced and resolved. pancreatic abnormality - CT Abdomen/Pelvis: Abrupt pancreatic size change with atrophy and ductal dilation beyond the neck; extra and intrahepatic biliary dilation up to the ampulla. - MRI: No pancreatic masses; changing pancreatic duct caliber with distal atrophy and ductal tortuosity and dilation, possible stricture. Distended gallbladder with sludge and small stones, common bile duct 1.4 cm with no intraductal defects, moderate intrahepatic biliary ductal dilation possibly due to biliary dyskinesia. - No abdominal pain, normal LFTs. Per GI, no aggressive invasive procedures recommended as the patient is asymptomatic. AF/RVR--difficulty to control, has been on iv cardizem, digoxin IV and eventually loaded with PO amiodarone. -TTE 11/04: LVEF 60-65%, normal right ventricular cavity size and systolic function, no obvious vegetation noted -HR still -Continue amiodarone -continue cardizem, adjust for optimal HR -continue Eliquis and watch for bleedfing moderate protein/oscar malnutrition -supplements RESOLVED ISSUES: aspiration pneumonia with sepsis due to Enterococcus faecalis bacteremia [positive BCx 10/29, repeat BCx 11/01 and 11/12 negative] azithro 10/30-11/04, vanco 10/30-10/31, ceftriaxone 10/31-11/01, pip-don 11/01- and again 11/12-11/22, dapto 11/06-11/12 discussed with ID. Total 21d antibiotics from 11/01 completed thrombocytopenia likely due to infection; resolved hyperNa resolved CHRONIC ISSUES: gout continue allopurinol mood disorder continue paroxetine CODE STATUS: per ICU attending, DNR/DNI, confirmed with pt and her daughter and reaffirmed 11/20 DVT PPx; Eliquis reason for continued hospitalization: on high flow requiring weaning down as tolerated Quality Stroke Does the patient have a stroke diagnosis?: No VTE Prior VTE?: No VTE Risk Level:: Medical - moderate - high VTE Device Contraindication: Treatment Not Indicated VTE Drug Contraindication: N/A - Med Ordered
[2023-12-05] MEDS: Insulin Glargine,Hum.rec.anlog 100 UNIT/ML 10 ML VIAL SUBCUT (10:19)
[2023-12-05] MEDS: predniSONE 10 MG TABLET PO (10:20)
[2023-12-05 10:28] LABS: Glucose, Whole Blood 207 mg/dL (60-115)
--- NOTE | 2023-12-05 11:08 | MHC.CLN ---
F/U PT IS MODERATELY MALNOURISHED PO INTAKE 100% DIET RX: 2000DM CHOPPED WITH NT LIQ PER FORESTRY TREE PRUNER PT RECEIVING ENSURE MAX BID TO PROVIDE 300KCALS, 60G PROTEIN CONTINUE TO MONITOR PO INTAKE AND ENCOURAGE SUPPLEMENTS
[2023-12-05 11:10] LABS: Anion Gap 14 (12-20); Blood Urea Nitrogen 34 mg/dL (9-16); Calcium 9.4 mg/dL (8.4-10.2); Carbon Dioxide 34 mmol/L (22-29); Chloride 97 mmol/L (96-108); Creatinine Clr Calc Pharmacy 80.7; Estimated Glomerular Filt Rate > 60; Glucose Random 187 mg/dL (60-115); Potassium 3.6 mmol/L (3.3-5.1); Sodium 141 mmol/L (135-145)
[2023-12-05 11:18] LABS: B Type Natriuretic Peptide 80 pg/mL (<100)
[2023-12-05 11:31] LABS: Glucose, Whole Blood 167 mg/dL (60-115)
--- NOTE | 2023-12-05 15:03 | MHC.SL.SWA ---
Risk of Aspiration Due to: History of Pneumonia Dysphasia Diet Status: Liquid Consistency and Strategies for Safe Swallow: Liquid Intake Recommendation: [place] Thick Liquid Intake Strategies: Small Sips No Straws Solid Food Consistency: Dietary Recommendations: Chopped/Advanced (NDD3) Oral Medication Intake: Whole with Puree Please contact the pharmacy regarding appropriate crushable or liquid drug formulations that are available whenever modified delivery is recommended. Compensatory Strategies and Precautions to be Taken for Safe Swallow: Sitting Upright (90 deg) No Straw Small Bites and Sips Alternate Liquids/Solids Rate of Ingestion Change Avoid Specific Foods Supervision While Eating and Drinking for Safe Swallow: Supervision Foods to Avoid: Mixed textures Swallowing Recommended Treatments: Oral Motor Exercises Base of Tongue Exercises Compens. Strategy Educat. Vocal Cord Adduction Exer Recommendation for Speech: Inpatient Speech Therapy Speech Therapy through Rehab Facility Comment: MBSS done 12/02 resulted in recommendation for Chopped/Advanced Solids (NDD3) and [place]-Thick Liquids. Maintain aspiration precautions. Assist with tray set-up. ORDER DEPARTMENT SUPERVISOR to continue to follow to provide further education on MBSS results and explore dysphagia tx exercises. Complaint Clerk Clinican/Clinical Fellow: No Supervisory Statement: I have reviewed and agree with the student/clinical fellow's documentation: N/A Speech Language Pathologist: Bhakti Mims M.A., CCC-ORDER DEPARTMENT SUPERVISOR
[2023-12-05 16:40] LABS: Glucose, Whole Blood 320 mg/dL (60-115)
[2023-12-05] MEDS: Morphine Sulfate 2 MG/ML CARTRIDGE IVPUSH (18:32)
--- NOTE | 2023-12-05 19:31 | PC.NURSE ---
pt bladder scanned 18:40 for 658 ml. Pt states I have to go but it won't come out. MD notified. Pt Straight cathed 19:10 for 500ml yellow urine with sediment. Next RN notified in report.
[2023-12-05 21:06] LABS: Glucose, Whole Blood 135 mg/dL (60-115)
[2023-12-05] MEDS: Insulin Glargine,Hum.rec.anlog 100 UNIT/ML 10 ML VIAL 21 UNIT SUBCUT (21:06)
[2023-12-06] VITALS (11 sets, daily range): BP systolic 140–168; BP diastolic 72–98; PULSE 89–131; RESP 20; TEMP 35.6–37.2; O2SAT 90–100; BMI 35.2
[2023-12-06] MEDS: Morphine Sulfate 2 MG/ML CARTRIDGE IVPUSH ×5 (00:31→20:28)
[2023-12-06] MEDS: 0.9 % Sodium Chloride Flush 3 ML SYRINGE IVFLUSH ×4 (00:34→20:35)
[2023-12-06] MEDS: Omeprazole 20 MG CAPSULE.DR PO ×2 (06:29→15:57)
--- NOTE | 2023-12-06 07:23 | PC.NURSE ---
Patient unable to void. Bladder scan at 0300. 450ml urine in bladder.Dr Shawn rolle hospitalist informed, states to straight cath and monitor to see if patient would void on own.Straight cath ,400ml of clear dee urine return. Tolerated well.Report to oncoming nurse.
[2023-12-06] MEDS: Albuterol/Iprat 2.5/0.5MG 3 ML AMPUL.NEB INHALE (07:38)
[2023-12-06] MEDS: Fluticasone/Vilanterol 100/25 BLST.W.DEV 1 PUFF INHALE (07:38)
[2023-12-06] MEDS: Nystatin Oral Susp 500,000 UNIT/5 ML ORAL.SUSP 500000 UNIT PO ×4 (08:03→20:31)
[2023-12-06] MEDS: Lidocaine 4 % Patch ADH..PATCH 1 PATCH TRANSDERMA (08:04)
[2023-12-06] MEDS: Apixaban 5 MG TABLET PO ×2 (08:04→20:31)
[2023-12-06] MEDS: Nicotine 14 MG PATCH.TD24 TRANSDERMA (08:04)
[2023-12-06] MEDS: guaiFENesin DM 600/30 1 TAB TAB.ER.12H PO ×2 (08:04→20:31)
[2023-12-06] MEDS: Furosemide 40 MG/4 ML VIAL IVPUSH (08:04)
[2023-12-06] MEDS: dilTIAZem HCL CD 240 MG CAP.ER.DEG PO (08:05)
[2023-12-06] MEDS: allopurinoL 300 MG TABLET 150 MG PO (08:05)
[2023-12-06] MEDS: PARoxetine HCL 20 MG TABLET PO (08:05)
[2023-12-06] MEDS: predniSONE 10 MG TABLET PO (08:05)
[2023-12-06] MEDS: Amiodarone HCL 200 MG TABLET PO (08:05)
--- NOTE | 2023-12-06 08:25 | HO.PM.IMPN ---
Subjective Subjective Date of Service: 12/06/23 Interval History: f/u on acute hypoxic respiratory failure, copd, chf, interval history: At baseline sob, no distress, off O2, no hyperglycemia, Physical Exam Vital Signs: Vital Signs: Last Vital Signs Temp 96.6 F L 12/06/23 08:00 Pulse 96 12/06/23 08:05 Resp 20 12/06/23 08:00 BP 167/76 H 12/06/23 08:05 Pulse Ox 95 12/06/23 08:00 O2 Del Method Room Air 12/06/23 08:00 O2 Flow Rate 3 12/06/23 04:00 FiO2 40 12/02/23 04:00 Oxygen Flow Rate 2 11/10/23 07:30 BMI result Body Mass Index 35.2 Objective Data Active Medications Acetaminophen (Acetaminophen 325 Mg Tablet) 975 mg PO Q6H PRN PRN Reason: mild pain, headache or fever Last Admin: 12/04/23 14:46 Dose: 975 mg Documented By: IVIS Albuterol Sulfate (Albuterol Sulfate (0.083%) 2.5 Mg/3 Ml Vial.Neb) 2.5 mg INHALE Q4H PRN PRN Reason: Shortness of Breath/Wheezing Albuterol/Ipratropium (Albuterol/Iprat 2.5/0.5mg 3 Ml Ampul.Neb) 3 ml INHALE RQ4H WHILE AWAKE [facility] Last Admin: 12/06/23 07:38 Dose: 3 ml Documented By: SORAYA Allopurinol (Allopurinol 300 Mg Tablet) 150 mg PO DAILY [facility] Last Admin: 12/06/23 08:05 Dose: 150 mg Documented By: LEEANN Amiodarone HCl (Amiodarone Hcl 200 Mg Tablet) 200 mg PO DAILY [facility] Last Admin: 12/06/23 08:05 Dose: 200 mg Documented By: LEEANN Apixaban (Apixaban 5 Mg Tablet) 5 mg PO BID [facility] Last Admin: 12/06/23 08:04 Dose: 5 mg Documented By: LEEANN Benzocaine (Throat Lozenge, Medicated Lozenge) 1 lozenge MUCOUS MEM Q2H PRN PRN Reason: Sore Throat Last Admin: 12/02/23 08:29 Dose: 1 lozenge Documented By: JAMEY Diltiazem HCl (Diltiazem Hcl Cd 240 Mg Cap.Er.Deg) 240 mg PO DAILY JESSICA; Protocol Last Admin: 12/06/23 08:05 Dose: 240 mg Documented By: LEEANN Docusate Sodium (Docusate Sodium 100 Mg Capsule) 100 mg PO BID PRN PRN Reason: constipation Last Admin: 12/02/23 13:16 Dose: 100 mg Documented By: JAMEY Fluticasone/Vilanterol (Fluticasone/Vilanterol 100/25 Blst.W.Dev) 1 puff INHALE RDAILY [facility] Last Admin: 12/06/23 07:38 Dose: 1 puff Documented By: SORAYA Furosemide (Furosemide 40 Mg/4 Ml Vial) 40 mg IVPUSH DAILY [facility]; Protocol Last Admin: 12/06/23 08:04 Dose: 40 mg Documented By: LEEANN Glucose (Glucose Gel 15 Gm Gel..Gram.) 15 gm PO Q15M PRN; Protocol PRN Reason: per Hypoglycemia Standing Ord. Guaifenesin/Dextromethorphan (Guaifenesin Dm 600/30 1 Tab Tab.Er.12h) 1 tab PO BID [facility] Last Admin: 12/06/23 08:04 Dose: 1 tab Documented By: LEEANN Insulin Glargine (Insulin Glargine,Hum.Rec.Anlog 100 Unit/Ml 10 Ml Vial) 21 unit SUBCUT BEDTIME [facility] Last Admin: 12/05/23 21:06 Dose: 21 unit Documented By: PATRICE Comments: BS 135 Insulin Glargine (Insulin Glargine,Hum.Rec.Anlog 100 Unit/Ml 10 Ml Vial) 15 unit SUBCUT DAILY [facility] Last Admin: 12/06/23 08:07 Dose: Not Given Documented By: LEEANN Non-Admin Reason: Physician Held Med Insulin Human Lispro (Insulin Lispro 100 Unit/Ml 3 Ml Vial) 0 unit SUBCUT QIDACHS [facility]; Protocol Last Admin: 12/06/23 08:07 Dose: Not Given Documented By: LEEANN Non-Admin Reason: No Insulin Coverage Lidocaine (Lidocaine 4 % Patch Adh..Patch) 1 patch TRANSDERMA DAILY [facility]; Protocol Last Admin: 12/06/23 08:04 Dose: 1 patch Documented By: LEEANN Morphine Sulfate (Morphine Sulfate 2 Mg/Ml Cartridge) 2 mg IVPUSH Q6H PRN; Protocol PRN Reason: Pain, Severe (Pain Scale 7-10) Last Admin: 12/06/23 06:30 Dose: 2 mg Documented By: PATRICE Nicotine (Nicotine 14 Mg Patch.Td24) 14 mg TRANSDERMA DAILY [facility] Last Admin: 12/06/23 08:04 Dose: 14 mg Documented By: LEEANN Nystatin (Nystatin Oral Susp 500,000 Unit/5 Ml Oral.Susp) 500,000 unit PO QID [facility]; Protocol Last Admin: 12/06/23 08:03 Dose: 500,000 unit Documented By: LEEANN Omeprazole (Omeprazole 20 Mg Capsule.Dr) 20 mg PO BID@0630,1630 [facility] Last Admin: 12/06/23 06:29 Dose: 20 mg Documented By: PATRICE Ondansetron HCl (Ondansetron Hcl 4 Mg/2 Ml Vial) 4 mg IVPUSH Q8H PRN PRN Reason: Nausea and Vomiting Last Admin: 11/12/23 20:05 Dose: 4 mg Documented By: TRUDY-SUE Oxycodone HCl (Oxycodone Hcl Immed Release 5 Mg Tablet) 5 mg PO Q4H PRN PRN Reason: Pain, Moderate(Pain Scale 4-6) Last Admin: 12/05/23 21:48 Dose: 5 mg Documented By: PATRICE Paroxetine HCl (Paroxetine Hcl 20 Mg Tablet) 20 mg PO DAILY@0900 [facility] Last Admin: 12/06/23 08:05 Dose: 20 mg Documented By: LEEANN Prednisone (Prednisone 10 Mg Tablet) 10 mg PO DAILY [facility] Last Admin: 12/06/23 08:05 Dose: 10 mg Documented By: LEEANN Sodium Chloride (0.9 % Sodium Chloride Flush 3 Ml Syringe) 3 ml IVFLUSH QSHIFT [facility] Last Admin: 12/06/23 08:07 Dose: 3 ml Documented By: LEEANN Labs 12/03/23 06:31 12/05/23 10:39 Labs: Laboratory Results - last 24 hr 12/05/23 12/05/23 12/05/23 10:16 10:39 11:26 Anion Gap 14 Estim Creat Clear Calc 80.7 Estimated GFR > 60 POC Glucose 207 H 167 H Random Glucose 187 H Calcium 9.4 D B-Natriuretic Peptide 80 12/05/23 12/05/23 16:36 20:41 Anion Gap Estim Creat Clear Calc Estimated GFR POC Glucose 320 H 135 H Random Glucose Calcium B-Natriuretic Peptide Assessment and Plan (1) Pulmonary edema: Status: Acute (2) Acute on chronic anemia: Status: Acute (3) Acute hypoxemic respiratory failure: Status: Acute Plan hosp Day# 78yo F with PAF on apixaban, COPD not on hO2, gout, HF with unknown EF, and DM2. presented with AMS, admitted for hypoxia due to CAP + COPD. developed worsening hypoxia due to aspiration and intubated on 11/13/23 . extubated 11/14/23 and stepped down to telemetry 11/15/23. developed LGIB + CHF/COPD exacerbations. still on HFNC but gradually weaning #Acute hypoxic respiratory failure due to acute/chronic HFpEF and acute COPD exacerbation and aspiration pneumonia that required intubation--hypoxia now resolved. #Acute HFpEF--diuressed with IV Lasix and todate negative 18 L, BNP 80, Change to oral Lasix 40 mg daily #COPD exacerbation--Has been on steroid for nearly entire hospital stay -nathan off steroid, presently on 10 mg daily since 12/04 -continue bronchodilators by Neb -Incentive spirometry # Aspiration pneumonia/Enterococcus faecalis bacteremia [positive BCx 10/29, repeat BCx 11/01 and 11/12 negative] azithro 10/30-11/04, vanco 10/30-10/31, ceftriaxone 10/31-11/01, pip-don 11/01- and again 11/12-11/22, dapto 11/06-11/12 Total 21d antibiotics from 11/01 completed per ID recommendation #Dysphagia--MBS 12/02 silent aspiration..OIL WELL PERFORATOR OPERATOR rec NDD3, [place] thick liquid, meds whole with puree #ABLA d/t LGIB, resolved. -GI recommends conservative managment -tolerating eliquis thus far -s/p vit k, octreatide and iV PPI, now PO PPI #DM2 with steroid-induced hyperglycemia, hyperglycemia overall improved, FBS 135 tody -Continue Lantus at 21 at HS, reduce AM dose to 7, continue sliding scale #hypOkalemia, replaced and resolved. ##Hypernatremia--resolved #pancreatic abnormality - CT Abdomen/Pelvis: Abrupt pancreatic size change with atrophy and ductal dilation beyond the neck; extra and intrahepatic biliary dilation up to the ampulla. - MRI: No pancreatic masses; changing pancreatic duct caliber with distal atrophy and ductal tortuosity and dilation, possible stricture. Distended gallbladder with sludge and small stones, common bile duct 1.4 cm with no intraductal defects, moderate intrahepatic biliary ductal dilation possibly due to biliary dyskinesia. - No abdominal pain, normal LFTs. Per GI, no aggressive invasive procedures recommended as the patient is asymptomatic. #AF/RVR--difficulty to control, has been on iv cardizem, digoxin IV and eventually loaded with PO amiodarone, HR better -TTE 11/04: LVEF 60-65%, normal right ventricular cavity size and systolic function, no obvious vegetation noted -Continue amiodarone, cardizem and eliquis #moderate protein/oscar malnutrition -supplements #thrmbocytopenia--from acute illness resolved #Gout --Allopurinol #Mood disorder--Paroxetine #Urinary retention 12/04--persistent after multiple straight cath, Zafar and urology consult today Has not been participating in PT, but will need rehab vs penitentiary care CODE STATUS: per ICU attending, DNR/DNI, confirmed with pt and her daughter and reaffirmed 11/20 DVT PPx; Eliquis reason for continued hospitalization: recovering from prolonged hospitalization with respiratory failure requiring intubation, and being wean off O2 will need placment. Quality Stroke Does the patient have a stroke diagnosis?: No VTE Prior VTE?: No VTE Risk Level:: Medical - moderate - high VTE Device Contraindication: Treatment Not Indicated VTE Drug Contraindication: N/A - Med Ordered
[2023-12-06 08:56] LABS: Glucose, Whole Blood 130 mg/dL (60-115)
[2023-12-06] MEDS: Insulin Glargine,Hum.rec.anlog 100 UNIT/ML 10 ML VIAL 7 UNIT SUBCUT (10:16)
[2023-12-06 11:27] LABS: Glucose, Whole Blood 320 mg/dL (60-115)
[2023-12-06] MEDS: Insulin Lispro 100 UNIT/ML 3 ML VIAL SUBCUT ×3 (11:47→21:01)
--- NOTE | 2023-12-06 13:16 | MHC.CM.PN ---
Addendum entered by Sujey Jerome 12/06/23 15:44: [facility] now reports that the last female bed was taken. With pts second choice in facility being [facility] [place], this CM contacted them to let them know pt accepts their bed offer and request they go for insurance auth. Insurance auth being submitted by [facility] [place]. Original Note: EMR reviewed and per MD rounds, pt remains medically cleared for discharge to [facility]. Pt received multiple [facility] bed offers today which were reviewed with her by this CM and pt accepted bed offer [facility]. [facility] updated on bed acceptance and will go for insurance auth. Hospitalist updated.
--- NOTE | 2023-12-06 13:27 | PM.DS ---
DS: Providers Provider Date of admission: 10/30/23 20:57 Primary care physician: Ti Thompson PA-C Consults: 11/01/23 13:13 Consult to Infectious Diseases Routine Consulting Provider: Shanti Alejo Reason for consultation: gm pos bacteremia Has provider been notified: No 11/03/23 16:38 Consult to Gastroenterology Routine Consulting Provider: Yoon Schmitz Reason for consultation: bacteremic. pancreatic duct/biliary duct dilation ?panc neck lesion 11/04/23 08:45 Consult to Cardiology Routine Consulting Provider[place] [facility] Reason for consultation: AF/RVR dilt gtt @ 15/hr 11/06/23 08:52 Consult to Pulmonology Routine Consulting Provider: [facility] Reason for consultation: advanced COPD 11/12/23 08:42 Consult to Pulmonology Routine Consulting Provider: Gene Riley Reason for consultation: atelectasis Has provider been notified: No 11/18/23 09:28 Consult to Gastroenterology Routine Consulting Provider: Deandra Jones Reason for consultation: BRBPR. Eliquis held. Not a scope candidate due to resp failure 11/21/23 06:03 Consult to Gastroenterology Routine Consulting Provider: Dylan More Reason for consultation: Melanotic stools Has provider been notified: No 12/06/23 08:53 Consult to Urology Routine Consulting Provider: Pranav Connors Reason for consultation: Urinary retention Has provider been notified: No DS: Diagnosis Discharge Diagnosis (1) Pulmonary edema: Status: Acute (2) Acute on chronic anemia: Status: Acute (3) Acute hypoxemic respiratory failure: Status: Acute DS: Summary Hospital Course Hospital Course: admissin hpi by Dr. Pal Chief Complaint: Dyspnea This is a 78-year-old female with pertinent history of paroxysmal atrial fibrillation on Eliquis, COPD not on home oxygen, gout, congestive heart failure, unspecified EF, gout, insulin-dependent diabetes mellitus who was sent to the emergency department for evaluation of altered mentation. Patient was found to be hypoglycemic as per EMS with blood glucose 32. Patient was given D50 IV with improvement in patient's blood glucose and improvement in mentation. Patient stated that she gave herself 15 units of Lantus in the afternoon. She has been complaining of dyspnea that has been ongoing for about 2 weeks. This has been associated with productive cough with yellowish sputum production. Also has associated wheezing. Admits chills but no documented temperature. No chest discomfort, palpitations, abdominal pain, changes in urinary or bowel habits. In the emergency department, patient was found to be septic and imaging concerning for pneumonia. Also was found to be wheezing and given multiple DuoNeb treatments with IV Solu- Hospital course The patient presented to the hospital on 10/29 with Dyspnea and altermental status d/t Hypoglycemia. She was admitted for sepsis d/t pneumonia, acute hypoxic respiratory failure d/t PNA and COPD exacerbation, encephalopathy related to hypoglycemia and sepsis. She was initated on broad spec Abx, bronchodilators and Nebs. Blood cultures from 10/29 grew E. Feacalis etiology believed to be biliary source as CT and MRI showed sludge in GB, dilated CBD and pancreatic atrophy.. GI evaluated her recommended conservative management. On november 12, she developped acute hypoxic respiratory failure, unresponsiveness and unable to clear her secretion, aspiration. She was intubated and admitted to the ICU but was extubated 2 dsays later and transfer back to [facility]. Her hospital course has been further complicated by GIB, acute diastolic heart failure, hyperglycemia, and now severe deconditioning. Hospital course by problems #Acute hypoxic respiratory failure due to acute/chronic HFpEF and acute COPD exacerbation and aspiration pneumonia that required intubation, High flow and now doing well on room air. # Aspiration pneumonia/Enterococcus faecalis bacteremia [positive BCx 10/29, repeat BCx 11/01 and 11/12 negative] azithro 10/30-11/04, vanco 10/30-10/31, ceftriaxone 10/31-11/01, pip-don 11/01- and again 11/12-11/22, dapto 11/06-11/12-, dapto 11/06-11/12 Has completed total 21d antibiotics from 11/01 as recommended by ID #COPD exacerbation--Has been on steroid for nearly entire hospital stay, nathan off steroid, prseently on Prednisone 10 daily, continue bronchodilators by Neb, Incentive spirometry #Acute HFpEF--diuressed with IV Lasix and todate negative 18 L, Echo showed EF of 60 to 65%, BNP now 80, Continue Oral Lasix at 40 mg daily #Dysphagia--MBS 12/02 silent aspiration..ROLLER PICKER rec NDD3, [place] thick liquid, meds whole with puree #Acute blood loss anemia (ABLA ) d/t LGIB, resolved. -GI recommends conservative managment was tool ill for invasive procedure--was treated with Vitamin K, IV PPI, octreotide. She did not transfusion. She was ultimately restarted on Eliquis and thus far has been tolerating. #DM2 with steroid-induced hyperglycemia, hyperglycemia overall improved -Continue Lantus at 21 at HS, 7 in am , continue sliding scale #hypOkalemia, replaced and resolved. ##Hypernatremia--resolved #pancreatic abnormality - CT Abdomen/Pelvis: Abrupt pancreatic size change with atrophy and ductal dilation beyond the neck; extra and intrahepatic biliary dilation up to the ampulla. - MRI: No pancreatic masses; changing pancreatic duct caliber with distal atrophy and ductal tortuosity and dilation, possible stricture. Distended gallbladder with sludge and small stones, common bile duct 1.4 cm with no intraductal defects, moderate intrahepatic biliary ductal dilation possibly due to biliary dyskinesia. - No abdominal pain, normal LFTs. Per GI, no aggressive invasive procedures recommended as the patient is asymptomatic. #AF/RVR--difficulty to control, has been on iv cardizem, digoxin IV and eventually loaded with PO amiodarone, HR better -TTE 11/04: LVEF 60-65%, normal right ventricular cavity size and systolic function, no obvious vegetation noted -Continue amiodarone, cardizem and eliquis #moderate protein/oscar malnutrition -supplements #thrmbocytopenia--from acute illness resolved #Gout --Allopurinol #Mood disorder--Paroxetine #Urinary retention 12/04--persistent after multiple straight cath, Zafar inserted and urology consult Physical Exam Vital Signs: Vital Signs: Last Vital Signs Temp 96.1 F L 12/06/23 11:39 Pulse 89 12/06/23 12:29 Resp 20 12/06/23 11:39 BP 140/98 H 12/06/23 11:39 Pulse Ox 99 12/06/23 12:29 O2 Del Method Room Air 12/06/23 11:39 O2 Flow Rate 3 12/06/23 04:00 FiO2 40 12/02/23 04:00 Oxygen Flow Rate 2 11/10/23 07:30 BMI result Body Mass Index 35.2 DS: Data Data Completed and Pending Labs on day of discharge: Laboratory Results - last 24 hr 12/05/23 12/05/23 12/06/23 16:36 20:41 07:35 POC Glucose 320 H 135 H 130 H 12/06/23 11:20 POC Glucose 320 H Discharge Plan Discharge Referrals: [facility] [Other] - 1 Week [facility] [Outside] - 1 Week Ti Thompson PA-C [Primary Care Provider] - 1 Week Discharge Medications: No Action (DME) blood-glucose meter [OneTouch Ultra2 Meter] Kit See Rx Instructions .ROUTE .MEDSUPPLY Qty: 1 0RF Hold Instructions: Doctor's Order Rx Instructions: As directed check the blood sugar TID (DME) hospital bed Kit See Rx Instructions .Route Qty: 1 0RF Rx Instructions: As directed acetaminophen 500 mg capsule 500 mg PO Q6H PRN (Reason: fever) 30 Days Qty: 120 1RF famotidine 20 mg tablet 20 mg PO DAILY 90 Days Qty: 90 2RF Eliquis 5 mg tablet 5 mg PO BID 30 Days Qty: 60 6RF cyclobenzaprine 10 mg tablet 10 mg PO TID 30 Days Qty: 90 3RF insulin lispro [Admelog SoloStar U-100 Insulin] 100 unit/mL insulin pen 15 unit subcut TID Qty: 15 1RF furosemide 40 mg tablet 40 mg PO BID Qty: 180 1RF diltiazem HCl 240 mg capsule,extended release 24hr 240 mg PO DAILY 90 Days Qty: 90 2RF insulin glargine 100 unit/mL (3 mL) insulin pen 25 unit subcut QAM 30 Days Qty: 15 1RF docusate sodium 100 mg capsule 100 mg PO BID PRN (Reason: constipation) Qty: 60 1RF allopurinol 300 mg tablet 150 mg PO DAILY Qty: 45 3RF paroxetine HCl 20 mg tablet 20 mg PO QAM Qty: 90 2RF (DME) pen needle, diabetic [BD Ultra-Fine Tamia Pen Needle] 32 gauge x 5/32 needle See Rx Instructions .ROUTE .MEDSUPPLY Qty: 50 3RF Rx Instructions: three times per day (DME) OneTouch Ultra Test Strip See Rx Instructions .Route Qty: 3 0RF Hold Instructions: Doctor's Order Rx Instructions: As directed check blood sugar 3 times a day (DME) lancets Misc See Rx Instructions .ROUTE .MEDSUPPLY Qty: 100 0RF Rx Instructions: As directed check the blood sugar TID dextromethorphan-guaifenesin 10-100 mg/5 mL Syrup 10 ml PO TID Qty: 237 0RF Rx Instructions: Take for 3 days and then as needed for cough nicotine 14 mg/24 hr patch 24 hour 1 patch topical DAILY ipratropium-albuterol 0.5 mg-3 mg(2.5 mg base)/3 mL solution for nebulization 3 ml inhalation Q6H PRN (Reason: shortness of breath or wheezing) Qty: 180 2RF gabapentin 600 mg tablet 600 mg PO TID 30 Days Qty: 90 3RF albuterol sulfate 90 mcg/actuation HFA aerosol inhaler 2 puff PO Q4H 30 Days Qty: 8.5 3RF (DME) blood-glucose meter [FreeStyle Lite Meter] Kit See Rx Instructions .Route Qty: 1 0RF Rx Instructions: As directed (DME) FreeStyle Lite Strips Strip See Rx Instructions .ROUTE .MEDSUPPLY Qty: 100 3RF Rx Instructions: As directed (DME) lancets [FreeStyle Lancets] 28 gauge misc See Rx Instructions .ROUTE .MEDSUPPLY Qty: 100 3RF Rx Instructions: As directed (DME) FreeStyle Sinan 2 Sensor Kit See Rx Instructions .Route Qty: 1 6RF Rx Instructions: As directed (DME) FreeStyle Sinan 2 [place]aston Misc See Rx Instructions .Route Qty: 1 6RF Rx Instructions: As directed Print Language: [place] Islander
--- NOTE | 2023-12-06 13:29 | MHC.SL.SWA ---
Speech Pathologist Impression: Risk of Aspiration Due to: History of Pneumonia Dysphasia Diet Status: Recommend patient continue on current diet of Chopped/Advanced with NECTAR THICK LIQUIDS ONLY (no supplemental plain water, NECTAR THICK only), pills whole in puree. Patient should continue on this diet at next level of care. Liquid Consistency and Strategies for Safe Swallow: Liquid Intake Recommendation: [place] Thick Liquid Intake Strategies: Small Sips No Straws Solid Food Consistency: Dietary Recommendations: Chopped/Advanced (NDD3) Additional Modifications to Solid Foods: Recommend CHOPPED/ADVANCED (NDD3) and MAINTAIN NECTAR-THICK LIQUID restrictions. Strict aspiration precautions apply including; out of bed for meals, meds with puree medium, close supervision for overt s/s of aspiration, slow pace, small bites/sips, alternate bites and sips. Patient asks for and has succeeded in obtaining water/thin liquids which she is known to aspirate. Patient is restricted to NECTAR THICK consistency. Oral Medication Intake: Whole with Puree Please contact the pharmacy regarding appropriate crushable or liquid drug formulations that are available whenever modified delivery is recommended. Compensatory Strategies and Precautions to be Taken for Safe Swallow: Sitting Upright (90 deg) No Straw Small Bites and Sips Alternate Liquids/Solids Rate of Ingestion Change Avoid Specific Foods Supervision While Eating and Drinking for Safe Swallow: Intermittent Supervision Foods to Avoid: Mixed textures Swallowing Recommended Treatments: Oral Motor Exercises Base of Tongue Exercises Compens. Strategy Educat. Vocal Cord Adduction Exer Recommendation for Speech: Inpatient Speech Therapy Speech Therapy through Rehab Facility Comment: Patient was seen at lunch, however on arrival patient was quite agitated, reported she had just been yelling at the nurse due to discomfort with her catheter. She initially declined lunch or any interaction with PARKING CASHIER, but then requested assistance with repositioning in bed and then calmed some. Patient tolerated having head of bed at 70 degrees, due to discomfort with catheter, and requested nectar thick drinks from tray. Patient took sips of her coffee and milk at nectar thick consistency, noted to take small sips at a time from open cup lid. Patient declined any of the solid food from tray, but wanted them saved for later when she believed she would have more of an appetite. Patient asked Is that water? Is my water there?(on tray) and there was a jug of water and a cup of water present. Patient stated she had been taking sips of water and wanted it there for later. Patient was reminded of swallow study and finding that aspiration was noted on thin liquids, and water as well as other thin liquids are restricted. Patient again became upset when told this, complaining that the swallow study made her blood pressure escalate. PARKING CASHIER removed water jug and cup from tray. Recommend patient continue on current diet of Chopped/Advanced with NECTAR THICK LIQUIDS ONLY (no supplemental plain water, NECTAR THICK only), pills whole in puree. Patient should continue on this diet at next level of care. Frequency/Duration: Daily Date Range for Service Req: Timeline to reassess: PRN Lime Mixer Clinican/Clinical Fellow: No Supervisory Statement: I have reviewed and agree with the student/clinical fellow's documentation: N/A Speech Language Pathologist: Davida Corcoran M.A., CCC-PARKING CASHIER
[2023-12-06 15:31] LABS: Glucose, Whole Blood 211 mg/dL (60-115)
[2023-12-06 20:48] LABS: Glucose, Whole Blood 312 mg/dL (60-115)
[2023-12-06] MEDS: Insulin Glargine,Hum.rec.anlog 100 UNIT/ML 10 ML VIAL 21 UNIT SUBCUT (21:01)
--- NOTE | 2023-12-06 21:10 | PC.RT ---
Pt refusing CPAP tonight; will call if needed
[2023-12-07] VITALS (7 sets, daily range): BP systolic 128–152; BP diastolic 60–90; PULSE 98–119; RESP 18–20; TEMP 36.2–36.9; O2SAT 92–98; BMI 34.2
[2023-12-07] MEDS: Morphine Sulfate 2 MG/ML CARTRIDGE IVPUSH ×4 (00:28→12:18)
[2023-12-07] MEDS: Omeprazole 20 MG CAPSULE.DR PO (04:33)
[2023-12-07] MEDS: Fluticasone/Vilanterol 100/25 BLST.W.DEV 1 PUFF INHALE (08:00)
[2023-12-07] MEDS: Albuterol/Iprat 2.5/0.5MG 3 ML AMPUL.NEB INHALE (08:02)
[2023-12-07 08:35] LABS: Glucose, Whole Blood 187 mg/dL (60-115)
[2023-12-07] MEDS: predniSONE 10 MG TABLET PO (08:39)
[2023-12-07] MEDS: guaiFENesin DM 600/30 1 TAB TAB.ER.12H PO ×2 (08:39→23:21)
[2023-12-07] MEDS: Apixaban 5 MG TABLET PO ×2 (08:39→23:21)
[2023-12-07] MEDS: Amiodarone HCL 200 MG TABLET PO (08:39)
[2023-12-07] MEDS: Nystatin Oral Susp 500,000 UNIT/5 ML ORAL.SUSP 500000 UNIT PO ×3 (08:39→23:19)
[2023-12-07] MEDS: PARoxetine HCL 20 MG TABLET PO (08:39)
[2023-12-07] MEDS: dilTIAZem HCL CD 240 MG CAP.ER.DEG PO (08:40)
[2023-12-07] MEDS: Lidocaine 4 % Patch ADH..PATCH 1 PATCH TRANSDERMA (08:40)
[2023-12-07] MEDS: Nicotine 14 MG PATCH.TD24 TRANSDERMA (08:40)
[2023-12-07] MEDS: 0.9 % Sodium Chloride Flush 3 ML SYRINGE IVFLUSH (08:41)
[2023-12-07] MEDS: allopurinoL 300 MG TABLET 150 MG PO (08:45)
[2023-12-07] MEDS: Insulin Lispro 100 UNIT/ML 3 ML VIAL SUBCUT ×3 (09:10→23:24)
[2023-12-07] MEDS: Insulin Glargine,Hum.rec.anlog 100 UNIT/ML 10 ML VIAL 7 UNIT SUBCUT (09:10)
--- NOTE | 2023-12-07 10:25 | MHC.CLN ---
F/U PT IS MODERATELY MALNOURISHED PO INTAKE 100% WT STABLE DIET RX: 2000DM CHOPPED WITH NT LIQ PER BEVELLER OPERATOR PT RECEIVING ENSURE MAX BID TO PROVIDE 300KCALS, 60G PROTEIN CONTINUE TO MONITOR PO INTAKE AND ENCOURAGE SUPPLEMENTS RD TO FOLLOW WEEKLY
--- NOTE | 2023-12-07 11:41 | MHC.SL.SWA ---
Speech Pathologist Impression: Risk of aspiration, oropharyngeal dysphagia Risk of Aspiration Due to: History of Pneumonia Dysphasia Diet Status: No change Liquid Consistency and Strategies for Safe Swallow: Liquid Intake Recommendation: [place] Thick Liquid Intake Strategies: Small Sips No Straws Solid Food Consistency: Dietary Recommendations: Chopped/Advanced (NDD3) Additional Modifications to Solid Foods: Recommend UPGRADE SOLIDS to CHOPPED/ADVANCED (NDD3) and MAINTAIN NECTAR-THICK LIQUID restrictions. Strict aspiration precautions apply including; out of bed for meals, meds with puree medium, close supervision for overt s/s of aspiration, slow pace, small bites/sips, alternate bites and sips. WASTE PICKER will continue to follow. Oral Medication Intake: Whole with Puree Please contact the pharmacy regarding appropriate crushable or liquid drug formulations that are available whenever modified delivery is recommended. Compensatory Strategies and Precautions to be Taken for Safe Swallow: Sitting Upright (90 deg) No Straw Small Bites and Sips Alternate Liquids/Solids Rate of Ingestion Change Avoid Specific Foods Supervision While Eating and Drinking for Safe Swallow: Intermittent Supervision Foods to Avoid: Mixed textures Swallowing Recommended Treatments: Oral Motor Exercises Base of Tongue Exercises Compens. Strategy Educat. Vocal Cord Adduction Exer Recommendation for Speech: Inpatient Speech Therapy Speech Therapy through Rehab Facility Comment: Recommend UPGRADE SOLIDS to CHOPPED/ADVANCED (NDD3) and MAINTAIN NECTAR-THICK LIQUID restrictions. Strict aspiration precautions apply including; out of bed for meals, meds with puree medium, close supervision for overt s/s of aspiration, slow pace, small bites/sips, alternate bites and sips. WASTE PICKER will continue to follow. Pt may benefit from therapeutic exercises, however her ability to participate in them independently is guarded given her mental status changes. Frequency/Duration: Daily Date Range for Service Req: Timeline to reassess: PRN Activity Therapist Clinican/Clinical Fellow: No Supervisory Statement: I have reviewed and agree with the student/clinical fellow's documentation: N/A Speech Language Pathologist: Angelina Hall M.A., [facility]
[2023-12-07 11:50] LABS: Glucose, Whole Blood 282 mg/dL (60-115)
--- NOTE | 2023-12-07 13:30 | PM.DS ---
DS: Providers Provider Date of Service: 12/07/23 Date of admission: 10/30/23 20:57 Primary care physician: Ti Thompson PA-C Consults: 11/01/23 13:13 Consult to Infectious Diseases Routine Consulting Provider: Shanti Aleoj Reason for consultation: gm pos bacteremia Has provider been notified: No 11/03/23 16:38 Consult to Gastroenterology Routine Consulting Provider: Yoon Schmitz Reason for consultation: bacteremic. pancreatic duct/biliary duct dilation ?panc neck lesion 11/04/23 08:45 Consult to Cardiology Routine Consulting Provider: [facility] Reason for consultation: AF/RVR dilt gtt @ 15/hr 11/06/23 08:52 Consult to Pulmonology Routine Consulting Provider: [facility] Reason for consultation: advanced COPD 11/12/23 08:42 Consult to Pulmonology Routine Consulting Provider: Gene Riley Reason for consultation: atelectasis Has provider been notified: No 11/18/23 09:28 Consult to Gastroenterology Routine Consulting Provider: Deandra Jones Reason for consultation: BRBPR. Eliquis held. Not a scope candidate due to resp failure 11/21/23 06:03 Consult to Gastroenterology Routine Consulting Provider: Dylan More Reason for consultation: Melanotic stools Has provider been notified: No 12/06/23 08:53 Consult to Urology Routine Consulting Provider: Pranav Connors Reason for consultation: Urinary retention Has provider been notified: No DS: Diagnosis Discharge Diagnosis (1) Pulmonary edema: Status: Acute (2) Acute on chronic anemia: Status: Acute (3) Acute hypoxemic respiratory failure: Status: Acute DS: Summary Hospital Course Hospital Course: admissin hpi by Dr. Pal Chief Complaint: Dyspnea This is a 78-year-old female with pertinent history of paroxysmal atrial fibrillation on Eliquis, COPD not on home oxygen, gout, congestive heart failure, unspecified EF, gout, insulin-dependent diabetes mellitus who was sent to the emergency department for evaluation of altered mentation. Patient was found to be hypoglycemic as per EMS with blood glucose 32. Patient was given D50 IV with improvement in patient's blood glucose and improvement in mentation. Patient stated that she gave herself 15 units of Lantus in the afternoon. She has been complaining of dyspnea that has been ongoing for about 2 weeks. This has been associated with productive cough with yellowish sputum production. Also has associated wheezing. Admits chills but no documented temperature. No chest discomfort, palpitations, abdominal pain, changes in urinary or bowel habits. In the emergency department, patient was found to be septic and imaging concerning for pneumonia. Also was found to be wheezing and given multiple DuoNeb treatments with IV Solu- Hospital course Patient had a very prolonged hospitalization, for the full course please see the electronic medical record Hospital course by discharge diagnosis 1. Acute respiratory failure with hypoxia Multifactorial including acute on chronic heart failure and COPD along with aspiration pneumonia that required intubation. She has required 1-3 L intermittently. This can be weaned as tolerated 2. Aspiration pneumonia/Enterococcus faecalis bacteremia Completed multiple courses of antibiotics for her infections. She has completed 21 total days for the bacteremia as recommended by Infectious Disease 3. COPD exacerbation Required multiple days of steroids. She has now been weaned down to 10 mg. This can be weaned as tolerated over the next several weeks. 4. Acute blood loss anemia due to lower GI bleed Was seen in consultation by GI who recommended conservative management. Initially her Eliquis was held. However has been re-initiated and her H&H has remained stable. 5. DM type 2 with steroid induced hyperglycemia Was treated with varying doses of insulin in the hospital. Her most recent regimen is 21 units of Lantus at bedtime and 7 units of Lantus in the morning with sliding scale for mealtime coverage. 6. Hypokalemia and hyponatremia Resolved 7. pancreatic abnormality - CT Abdomen/Pelvis: Abrupt pancreatic size change with atrophy and ductal dilation beyond the neck; extra and intrahepatic biliary dilation up to the ampulla. - MRI: No pancreatic masses; changing pancreatic duct caliber with distal atrophy and ductal tortuosity and dilation, possible stricture. Distended gallbladder with sludge and small stones, common bile duct 1.4 cm with no intraductal defects, moderate intrahepatic biliary ductal dilation possibly due to biliary dyskinesia. - No abdominal pain, normal LFTs. Per GI, no aggressive invasive procedures recommended as the patient is asymptomatic. 8. #AF/RVR--difficulty to control, has been on iv cardizem, digoxin IV and eventually loaded with PO amiodarone, HR better -TTE 11/04: LVEF 60-65%, normal right ventricular cavity size and systolic function, no obvious vegetation noted -Continue amiodarone, cardizem and eliquis 9. Urinary retention Patient required straight catheterization multiple times, and hence a Zafar catheter in place. Weaning trial can be completed rehab. If this is unsuccessful, she can be referred to Urology. 10. moderate protein/oscar malnutrition -supplements 11. Thrombocytopenia--from acute illness resolved 12. Gout --Allopurinol 13. Mood disorder--Paroxetine Time Attestation Discharge Coordination Time (in mins): 45 Quality: Safe Use of Opioids Does Pt have an Active Cancer Diagnosis on the Problem List?: No Quality: Stroke Does the patient have a stroke diagnosis?: No Physical Exam Vital Signs: Vital Signs: Last Vital Signs Temp 97.6 F 12/07/23 11:53 Pulse 110 H 12/07/23 11:53 Resp 19 12/07/23 11:53 BP 128/66 12/07/23 11:53 Pulse Ox 98 12/07/23 11:53 O2 Del Method Nasal Cannula 12/07/23 11:53 O2 Flow Rate 3 12/07/23 11:53 FiO2 40 12/02/23 04:00 Oxygen Flow Rate 2 11/10/23 07:30 BMI result Body Mass Index 34.2 Const: Other: General - no acute distress, appears comfortable Cardiovascular - regular rate and rhythm, S1-S2 Lungs - normal respiratory effort, clear to auscultation bilaterally, no wheezing Abdomen - soft, nontender, no rebound or guarding Extremities - no edema bilaterally Neuro - awake and alert, no focal deficits DS: Data Data Completed and Pending Labs on day of discharge: Laboratory Results - last 24 hr 12/06/23 12/06/23 12/07/23 15:27 20:26 08:31 POC Glucose 211 H 312 H 187 H 12/07/23 11:22 POC Glucose 282 H Discharge Plan Discharge Anticipated Discharge Date/Time: 12/07/23 16:00 Patient Disposition: Xfer SNF Discharge Diagnosis: Acute hypoxic respiratory failure, sepsis, pneumonia, chf, gi bleeding, Referrals: [facility] [Other] - 1 Week [facility] [Outside] - 1 Week Ti Thompson PA-C [Primary Care Provider] - 1 Week Discharge Medications: New insulin glargine [Lantus U-100 Insulin] 100 unit/mL Solution 10 unit subcut DAILY Qty: 10 0RF omeprazole 20 mg Capsule,Delayed Release(Dr/Ec) 20 mg PO BID@0630,1630 Qty: 60 0RF insulin lispro [Admelog U-100 Insulin lispro] 100 unit/mL Solution See Protocol subcut QIDACHS Qty: 10 0RF Protocol: Insulin Correction Scale Less than or equal to 110 ---- Give (units): 0 111 to 150 Give (units): 2 151 to 200 Give (units): 4 201 to 250 Give (units): 6 251 to 300 Give (units): 8 301 to 350 Give (units): 12 Greater than 350 Give (units): 14 Call MD if Blood Glucose > : 350 Rx Instructions: BG <111 0 units, 111-150 - 0 units, 151-200 2 units, 201-250 4 units, 251-300 6 units, 301-350 8 units, >350 10 units Mucus DM 30-600 mg Tablet Extended Release 12 Hr 1 tab PO BID Qty: 60 0RF lidocaine [Lidocaine Pain Relief] 4 % Adhesive Patch,Medicated 1 patch transdermal DAILY Qty: 15 0RF Protocol: Apply to: Apply to: midline lower lumbar area prednisone 10 mg Tablet 10 mg PO DAILY Qty: 5 0RF amiodarone 200 mg Tablet 200 mg PO DAILY Qty: 60 0RF Continued acetaminophen 500 mg capsule 500 mg PO Q6H PRN (Reason: fever) 30 Days Qty: 120 1RF Eliquis 5 mg tablet 5 mg PO BID 30 Days Qty: 60 6RF furosemide 40 mg tablet 40 mg PO BID Qty: 180 1RF diltiazem HCl 240 mg capsule,extended release 24hr 240 mg PO DAILY 90 Days Qty: 90 2RF docusate sodium 100 mg capsule 100 mg PO BID PRN (Reason: constipation) Qty: 60 1RF allopurinol 300 mg tablet 150 mg PO DAILY Qty: 45 3RF paroxetine HCl 20 mg tablet 20 mg PO QAM Qty: 90 2RF nicotine 14 mg/24 hr patch 24 hour 1 patch topical DAILY ipratropium-albuterol 0.5 mg-3 mg(2.5 mg base)/3 mL solution for nebulization 3 ml inhalation Q6H PRN (Reason: shortness of breath or wheezing) Qty: 180 2RF albuterol sulfate 90 mcg/actuation HFA aerosol inhaler 2 puff PO Q4H 30 Days Qty: 8.5 3RF Discontinued famotidine 20 mg tablet 20 mg PO DAILY 90 Days Qty: 90 2RF cyclobenzaprine 10 mg tablet 10 mg PO TID 30 Days Qty: 90 3RF insulin lispro [Admelog SoloStar U-100 Insulin] 100 unit/mL insulin pen 15 unit subcut TID Qty: 15 1RF insulin glargine 100 unit/mL (3 mL) insulin pen 25 unit subcut QAM 30 Days Qty: 15 1RF dextromethorphan-guaifenesin 10-100 mg/5 mL Syrup 10 ml PO TID Qty: 237 0RF Rx Instructions: Take for 3 days and then as needed for cough gabapentin 600 mg tablet 600 mg PO TID 30 Days Qty: 90 3RF No Action (DME) blood-glucose meter [OneTouch Ultra2 Meter] Kit See Rx Instructions .ROUTE .MEDSUPPLY Qty: 1 0RF Hold Instructions: Doctor's Order Rx Instructions: As directed check the blood sugar TID (DME) hospital bed Kit See Rx Instructions .Route Qty: 1 0RF Rx Instructions: As directed (DME) pen needle, diabetic [BD Ultra-Fine Tamia Pen Needle] 32 gauge x 5/32 needle See Rx Instructions .ROUTE .MEDSUPPLY Qty: 50 3RF Rx Instructions: three times per day (DME) OneTouch Ultra Test Strip See Rx Instructions .Route Qty: 3 0RF Hold Instructions: Doctor's Order Rx Instructions: As directed check blood sugar 3 times a day (DME) lancets Misc See Rx Instructions .ROUTE .MEDSUPPLY Qty: 100 0RF Rx Instructions: As directed check the blood sugar TID (DME) blood-glucose meter [FreeStyle Lite Meter] Kit See Rx Instructions .Route Qty: 1 0RF Rx Instructions: As directed (DME) FreeStyle Lite Strips Strip See Rx Instructions .ROUTE .MEDSUPPLY Qty: 100 3RF Rx Instructions: As directed (DME) lancets [FreeStyle Lancets] 28 gauge misc See Rx Instructions .ROUTE .MEDSUPPLY Qty: 100 3RF Rx Instructions: As directed (DME) FreeStyle Sinan 2 Sensor Kit See Rx Instructions .Route Qty: 1 6RF Rx Instructions: As directed (DME) FreeStyle Sinan 2 [place] Misc See Rx Instructions .Route Qty: 1 6RF Rx Instructions: As directed Discharge Orders: Discharge Order (Routine); Ordered 12/07/23 Ordered By: Chaz White Diet: NDD3/[place] thick Activity on Discharge: As tolerated Stand Alone Forms: Patient Portal Discharge page Print Language: Citizen Of [place] Care Plan Goals: To stay healthy and out of the hospital. Health Concerns: Multiple issues -- see discharge summary Plan of Treatment: Multiple issues -- see discharge summary Assessment: Multiple issues -- see discharge summary
--- NOTE | 2023-12-07 13:46 | MHC.CM.PN ---
Second IMM 12/07/23, Pt has been medically cleared, she will go to [facility] via BLS this afternoon.
[2023-12-07] MEDS: Acetaminophen 325 MG TABLET 975 MG PO (14:43)
--- NOTE | 2023-12-07 17:56 | PC.NURSE ---
Pt ready to be dc today at 1600. Mid line leaking therefore was removed. Oxycodone 5mg PO prn order for pain management. Upon discharge and EMS arrival pain address Oxycodone offered, pt refused po oxycodone requesting IV morphine. NO IV access at this time due to discharge. IM Morphine order pt refused medication and to be discharge to the [facility] facility. EMS left, notified and came at bedside.
[2023-12-07] MEDS: oxyCODONE HCl Immed Release 5 MG TABLET PO (18:39)
[2023-12-07 21:43] LABS: Glucose, Whole Blood 277 mg/dL (60-115)
[2023-12-07] MEDS: Insulin Glargine,Hum.rec.anlog 100 UNIT/ML 10 ML VIAL 21 UNIT SUBCUT (23:38)
[2023-12-08] VITALS (7 sets, daily range): BP systolic 137–173; BP diastolic 64–78; PULSE 61–108; RESP 18–24; TEMP 36.1–36.6; O2SAT 95–98; BMI 34.8
[2023-12-08] MEDS: oxyCODONE HCl Immed Release 5 MG TABLET PO ×2 (00:41→09:03)
[2023-12-08] MEDS: Omeprazole 20 MG CAPSULE.DR PO ×2 (07:37→16:34)
[2023-12-08] MEDS: Insulin Lispro 100 UNIT/ML 3 ML VIAL SUBCUT ×4 (07:47→21:30)
[2023-12-08 08:02] LABS: Glucose, Whole Blood 131 mg/dL (60-115)
[2023-12-08] MEDS: Albuterol/Iprat 2.5/0.5MG 3 ML AMPUL.NEB INHALE ×2 (08:05→20:02)
[2023-12-08] MEDS: Fluticasone/Vilanterol 100/25 BLST.W.DEV 1 PUFF INHALE (08:05)
[2023-12-08] MEDS: predniSONE 10 MG TABLET PO (08:55)
[2023-12-08] MEDS: Nystatin Oral Susp 500,000 UNIT/5 ML ORAL.SUSP 500000 UNIT PO ×3 (08:55→21:34)
[2023-12-08] MEDS: guaiFENesin DM 600/30 1 TAB TAB.ER.12H PO ×2 (08:55→21:33)
[2023-12-08] MEDS: dilTIAZem HCL CD 240 MG CAP.ER.DEG PO (08:56)
[2023-12-08] MEDS: allopurinoL 300 MG TABLET 150 MG PO (08:57)
[2023-12-08] MEDS: Apixaban 5 MG TABLET PO ×2 (08:58→21:33)
[2023-12-08] MEDS: PARoxetine HCL 20 MG TABLET PO (08:58)
[2023-12-08] MEDS: Nicotine 14 MG PATCH.TD24 TRANSDERMA (08:58)
[2023-12-08] MEDS: Lidocaine 4 % Patch ADH..PATCH 1 PATCH TRANSDERMA (08:58)
[2023-12-08] MEDS: Insulin Glargine,Hum.rec.anlog 100 UNIT/ML 10 ML VIAL 7 UNIT SUBCUT (09:04)
[2023-12-08] MEDS: Amiodarone HCL 200 MG TABLET PO (09:11)
--- NOTE | 2023-12-08 10:26 | P.PNIM_ITS ---
Subjective Subjective Date of Service: 12/08/23 Interval History: Very anxious and restless, asking for IV Morphine refusing planned discharge yesterday eating accepting PO meds no other events Physical Exam 2 Vital Signs: Vital Signs: Last Vital Signs Temp 98 F 12/08/23 08:00 Pulse 75 12/08/23 08:08 Resp 18 12/08/23 08:08 BP 137/76 12/08/23 08:00 Pulse Ox 97 12/08/23 08:00 O2 Del Method Nasal Cannula 12/08/23 08:00 O2 Flow Rate 3 12/08/23 08:00 FiO2 40 12/02/23 04:00 Oxygen Flow Rate 2 11/10/23 07:30 BMI result Body Mass Index 34.2 Const: Other: Constitutional : Awake, interactive, looks more anxious and restless eyes: with mild mydriasis Cardiovascular : RRR, no JVP, trace lower extremity edema Respiratory : good bilateral air entry, no crackles, wheezes or rhonchi Gastrointestinal: soft, lax, Normal bowel sounds, Non tender Skin : Warm, Dry Neurological : Alert & oriented to self and place, No focal deficit Psych: Objective Data Active Medications Acetaminophen (Acetaminophen 325 Mg Tablet) 975 mg PO Q6H PRN PRN Reason: mild pain, headache or fever Last Admin: 12/07/23 14:43 Dose: 975 mg Documented By: MIRTA Albuterol Sulfate (Albuterol Sulfate (0.083%) 2.5 Mg/3 Ml Vial.Neb) 2.5 mg INHALE Q4H PRN PRN Reason: Shortness of Breath/Wheezing Albuterol/Ipratropium (Albuterol/Iprat 2.5/0.5mg 3 Ml Ampul.Neb) 3 ml INHALE RQ4H WHILE AWAKE [facility] Last Admin: 12/08/23 08:05 Dose: 3 ml Documented By: ADEOLA Allopurinol (Allopurinol 300 Mg Tablet) 150 mg PO DAILY [facility] Last Admin: 12/08/23 08:57 Dose: 150 mg Documented By: OLGA Amiodarone HCl (Amiodarone Hcl 200 Mg Tablet) 200 mg PO DAILY [facility] Last Admin: 12/08/23 09:11 Dose: 200 mg Documented By: OLGA Apixaban (Apixaban 5 Mg Tablet) 5 mg PO BID [facility] Last Admin: 12/08/23 08:58 Dose: 5 mg Documented By: OLGA Benzocaine (Throat Lozenge, Medicated Lozenge) 1 lozenge MUCOUS MEM Q2H PRN PRN Reason: Sore Throat Last Admin: 12/02/23 08:29 Dose: 1 lozenge Documented By: JAMEY Diltiazem HCl (Diltiazem Hcl Cd 240 Mg Cap.Er.Deg) 240 mg PO DAILY [facility]; Protocol Last Admin: 12/07/23 08:40 Dose: 240 mg Documented By: MIRTA Docusate Sodium (Docusate Sodium 100 Mg Capsule) 100 mg PO BID PRN PRN Reason: constipation Last Admin: 12/02/23 13:16 Dose: 100 mg Documented By: JAMEY Fluticasone/Vilanterol (Fluticasone/Vilanterol 100/25 Blst.W.Dev) 1 puff INHALE RDAILY [facility] Last Admin: 12/08/23 08:05 Dose: 1 puff Documented By: ADEOLA Glucose (Glucose Gel 15 Gm Gel..Gram.) 15 gm PO Q15M PRN; Protocol PRN Reason: per Hypoglycemia Standing Ord. Guaifenesin/Dextromethorphan (Guaifenesin Dm 600/30 1 Tab Tab.Er.12h) 1 tab PO BID [facility] Last Admin: 12/08/23 08:55 Dose: 1 tab Documented By: OLGA Insulin Glargine (Insulin Glargine,Hum.Rec.Anlog 100 Unit/Ml 10 Ml Vial) 21 unit SUBCUT BEDTIME [facility] Last Admin: 12/07/23 23:38 Dose: 21 unit Documented By: NATALIYA Insulin Glargine (Insulin Glargine,Hum.Rec.Anlog 100 Unit/Ml 10 Ml Vial) 7 unit SUBCUT DAILY [facility] Last Admin: 12/08/23 09:04 Dose: 7 unit Documented By: OLGA Insulin Human Lispro (Insulin Lispro 100 Unit/Ml 3 Ml Vial) 0 unit SUBCUT QIDACHS [facility]; Protocol Last Admin: 12/08/23 07:47 Dose: 2 unit Documented By: OLGA Lidocaine (Lidocaine 4 % Patch Adh..Patch) 1 patch TRANSDERMA DAILY [facility]; Protocol Last Admin: 12/08/23 08:58 Dose: 1 patch Documented By: OLGA Lorazepam (Lorazepam 2 Mg/Ml Vial) 1 mg IM ONCE PRN PRN Reason: anxiety/restlessness Lorazepam (Lorazepam 1 Mg Tablet) 1 mg PO ONCE ONE Stop: 12/08/23 10:23 Nicotine (Nicotine 14 Mg Patch.Td24) 14 mg TRANSDERMA DAILY [facility] Last Admin: 12/08/23 08:58 Dose: 14 mg Documented By: OLGA Nystatin (Nystatin Oral Susp 500,000 Unit/5 Ml Oral.Susp) 500,000 unit PO QID [facility]; Protocol Last Admin: 12/08/23 08:55 Dose: 500,000 unit Documented By: OLGA Omeprazole (Omeprazole 20 Mg Capsule.Dr) 20 mg PO BID@0630,1630 [facility] Last Admin: 12/08/23 07:37 Dose: 20 mg Documented By: OLGA Ondansetron HCl (Ondansetron Hcl 4 Mg/2 Ml Vial) 4 mg IVPUSH Q8H PRN PRN Reason: Nausea and Vomiting Last Admin: 11/12/23 20:05 Dose: 4 mg Documented By: BRAD Oxycodone HCl (Oxycodone Hcl Immed Release 5 Mg Tablet) 5 mg PO Q6H PRN PRN Reason: Pain, Severe (Pain Scale 7-10) Last Admin: 12/08/23 09:03 Dose: 5 mg Documented By: OLGA Paroxetine HCl (Paroxetine Hcl 20 Mg Tablet) 20 mg PO DAILY@0900 [facility] Last Admin: 12/08/23 08:58 Dose: 20 mg Documented By: OLGA Prednisone (Prednisone 10 Mg Tablet) 10 mg PO DAILY [facility] Last Admin: 12/08/23 08:55 Dose: 10 mg Documented By: OLGA Sodium Chloride (0.9 % Sodium Chloride Flush 3 Ml Syringe) 3 ml IVFLUSH QSHIFT [facility] Last Admin: 12/08/23 07:37 Dose: Not Given Documented By: OLGA Non-Admin Reason: No Access Labs 12/03/23 06:31 12/05/23 10:39 Labs: Laboratory Results - last 24 hr 12/07/23 12/07/23 12/08/23 11:22 21:34 07:36 POC Glucose 282 H 277 H 131 H Assessment and Plan (1) Pulmonary edema: Status: Acute (2) Multifocal atrial tachycardia: Status: Acute (3) Anxiety with restlessness: Status: Acute Plan 78yo F with PAF on apixaban, COPD not on hO2, gout, HF with unknown EF, and DM2. presented with AMS, admitted for hypoxia due to CAP + COPD. developed worsening hypoxia due to aspiration and intubated on 11/13/23 . extubated 11/14/23 and stepped down to telemetry 11/15/23. developed LGIB + CHF/COPD exacerbations. still on HFNC but gradually weaning # Restlessness, increase anxiety with Narcotic seeking behaviour insisting on getting IV Morphine to help her sleep refusing going to SNF on Oxycodone during this hospital stay, continue PRN get Addiction team eval check UA Ativan PRN reorientation as needed #Acute hypoxic respiratory failure due to acute/chronic HFpEF and acute COPD exacerbation and aspiration pneumonia that required intubation--hypoxia now resolved. #Acute HFpEF--diuressed with IV Lasix and todate negative 18 L, BNP 80, Change to oral Lasix 40 mg daily #COPD exacerbation--Has been on steroid for nearly entire hospital stay. nathan off steroid, presently on 10 mg daily since 12/04. continue bronchodilators by Neb. -Incentive spirometry # Aspiration pneumonia/Enterococcus faecalis bacteremia [positive BCx 10/29, repeat BCx 11/01 and 11/12 negative] azithro 10/30-11/04, vanco 10/30-10/31, ceftriaxone 10/31-11/01, pip-don 11/01- and again 11/12-11/22, dapto 11/06-11/12. Total 21d antibiotics from 11/01 completed per ID recommendation #Dysphagia--MBS 12/02 silent aspiration..[employer] rec NDD3, [place] thick liquid, meds whole with puree #ABLA d/t LGIB, resolved. #DM2 with steroid-induced hyperglycemia, hyperglycemia overall improved. Continue Lantus at 21 at HS, reduce AM dose to 7, continue sliding scale #hypOkalemia, replaced and resolved. #Hypernatremia-resolved #pancreatic abnormality - CT Abdomen/Pelvis: Abrupt pancreatic size change with atrophy and ductal dilation beyond the neck; extra and intrahepatic biliary dilation up to the ampulla. - MRI: No pancreatic masses; changing pancreatic duct caliber with distal atrophy and ductal tortuosity and dilation, possible stricture. Distended gallbladder with sludge and small stones, common bile duct 1.4 cm with no intraductal defects, moderate intrahepatic biliary ductal dilation possibly due to biliary dyskinesia. - No abdominal pain, normal LFTs. Per GI, no aggressive invasive procedures recommended as the patient is asymptomatic. #AF/RVR- resolvdr. Continue amiodarone, cardizem and eliquis # moderate protein/oscar malnutrition, supplements #thrmbocytopenia--from acute illness resolved #Gout --Allopurinol #Mood disorder--Paroxetine #Urinary retention 12/04--persistent after multiple straight cath, Zafar and urology consult today Has not been participating in PT, but will need rehab vs long term care CODE STATUS: DNR/DNI, confirmed with pt and her daughter and reaffirmed 11/20 DVT PPx; Eliquis reason for continued hospitalization: Restlessness and narcotic withdrawal will need placment. Quality Stroke Does the patient have a stroke diagnosis?: No VTE Prior VTE?: No VTE Risk Level:: Medical - moderate - high VTE Device Contraindication: Treatment Not Indicated VTE Drug Contraindication: N/A - Med Ordered
[2023-12-08] MEDS: LORazepam 1 MG TABLET PO (10:34)
[2023-12-08 11:30] LABS: Glucose, Whole Blood 267 mg/dL (60-115)
--- NOTE | 2023-12-08 14:25 | MHC.CM.PN ---
EMR reviewed and per hospitalist pt will not be discharging today due to restlessness and narcotic withdrawal.
--- NOTE | 2023-12-08 15:02 | PC.NURSE ---
Zafar cath dc'd as per Dr Mario , urine specimen obtained sent to the lab, Due to void at 21:00
[2023-12-08 15:17] LABS: Appearance Urine Turbid; Color Urine Dark Yellow; Glucose Urine UA 500 mg/dL (Negative); Leukocyte Esterase Urine Large (3+) (Negative); Nitrite Urine Positive (Negative); PH 5.5 (5.0-9.0); UMIC TRIGGER UACC YES; Urine Blood Large (3+) (Negative); Urine Ketones Negative (Negative); Urine Protein 100 (2+) mg/dL (Neg-Trace)
[2023-12-08 15:28] LABS: Bacteria Urine 4+ (None Seen); RBC Urine >20 /HPF (0-2); UACC Culture Trigger YES; WBC Urine >50 /HPF (0-5)
[2023-12-08] MEDS: Morphine Sulfate 2 MG/ML CARTRIDGE IVPUSH (16:19)
[2023-12-08] MEDS: cefTRIAXone sodium 1 GM in 0.9 % Sodium Chloride 50 ML IV (16:21)
[2023-12-08 16:32] LABS: Glucose, Whole Blood 208 mg/dL (60-115)
[2023-12-08] MEDS: 0.9 % Sodium Chloride Flush 3 ML SYRINGE IVFLUSH (16:32)
[2023-12-08 18:24] LABS: Hematocrit 31.1 % (37.0-47.0); Hemoglobin 9.8 g/dl (12.0-16.0); Mean Corpuscular HGB Conc 31.5 g/dl (31.0-35.0); Mean Corpuscular Hemoglobin 30.4 pg (27.0-33.0); Mean Corpuscular Volume 96.6 fL (80.0-98.0); Mean Platelet Volume 11.3 fL (9.4-12.3); NRBC Pct Auto 0.1 /100WBC (0.0-0.2); Platelet Count 149 X10*3/uL (160-400); Red Blood Count 3.22 X10*6/uL (4.20-5.50); Red Cell Distribution Width 19.4 % (11.0-16.0); White Blood Count 15.8 X10*3/uL (4.8-10.8)
[2023-12-08 18:48] LABS: Anion Gap 17 (12-20); Blood Urea Nitrogen 24 mg/dL (9-16); Calcium 8.9 mg/dL (8.4-10.2); Carbon Dioxide 26 mmol/L (22-29); Chloride 103 mmol/L (96-108); Creatinine Clr Calc Pharmacy 83.6; Estimated Glomerular Filt Rate > 60; Glucose Random 169 mg/dL (60-115); Potassium 4.8 mmol/L (3.3-5.1); Sodium 141 mmol/L (135-145)
[2023-12-08 19:57] LABS: Glucose, Whole Blood 181 mg/dL (60-115)
[2023-12-08] MEDS: Insulin Glargine,Hum.rec.anlog 100 UNIT/ML 10 ML VIAL 21 UNIT SUBCUT (21:31)
[2023-12-09] VITALS (9 sets, daily range): BP systolic 134–157; BP diastolic 64–99; PULSE 84–129; RESP 18–26; TEMP 35.9–37; O2SAT 3–100; BMI 34.7
--- NOTE | 2023-12-09 | ECG_ITS ---
Test Reason : tachycardia Blood Pressure : / mmHG Vent. Rate : 137 BPM Atrial Rate : 000 BPM P-R Int : 000 ms QRS Dur : 080 ms QT Int : 320 ms P-R-T Axes : 000 -03 064 degrees QTc Int : 483 ms Artifact in tracing Normal sinus rhythm Premature atrial complexes Abnormal ECG When compared with ECG of 03-DEC-2023 20:20, No significant changes seen Referred By: Swati Mcclain Electronically Signed By:TARI SALAZAR
[2023-12-09 08:04] LABS: Glucose, Whole Blood 130 mg/dL (60-115)
[2023-12-09] MEDS: Amiodarone HCL 200 MG TABLET PO (08:21)
[2023-12-09] MEDS: Insulin Lispro 100 UNIT/ML 3 ML VIAL SUBCUT ×4 (08:21→22:27)
[2023-12-09] MEDS: Apixaban 5 MG TABLET PO ×2 (08:21→20:31)
[2023-12-09] MEDS: dilTIAZem HCL CD 240 MG CAP.ER.DEG PO (08:21)
[2023-12-09] MEDS: oxyCODONE HCl Immed Release 5 MG TABLET PO ×3 (08:21→18:52)
[2023-12-09] MEDS: 0.9 % Sodium Chloride Flush 3 ML SYRINGE IVFLUSH ×2 (08:22→15:54)
[2023-12-09] MEDS: Nicotine 14 MG PATCH.TD24 TRANSDERMA (08:33)
[2023-12-09] MEDS: PARoxetine HCL 20 MG TABLET PO (08:33)
[2023-12-09] MEDS: guaiFENesin DM 600/30 1 TAB TAB.ER.12H PO ×2 (08:33→20:31)
[2023-12-09] MEDS: predniSONE 10 MG TABLET PO (08:33)
[2023-12-09] MEDS: allopurinoL 300 MG TABLET 150 MG PO (08:33)
[2023-12-09] MEDS: Insulin Glargine,Hum.rec.anlog 100 UNIT/ML 10 ML VIAL 7 UNIT SUBCUT (08:33)
[2023-12-09] MEDS: Lidocaine 4 % Patch ADH..PATCH 1 PATCH TRANSDERMA (08:34)
[2023-12-09] MEDS: Albuterol/Iprat 2.5/0.5MG 3 ML AMPUL.NEB INHALE ×2 (09:46→16:02)
--- NOTE | 2023-12-09 10:33 | HO.PM.IMPN ---
Subjective Subjective Date of Service: 12/09/23 Interval History: Very anxious and restless, asking for IV Morphine refusing planned discharge yesterday Urine looks infected no other events Review of Systems Review of Systems: Yes all other systems are reviewed and are negative Physical Exam Vital Signs: Vital Signs: Last Vital Signs Temp 97.6 F 12/09/23 08:00 Pulse 114 H 12/09/23 09:48 Resp 20 12/09/23 09:48 BP 152/72 H 12/09/23 08:00 Pulse Ox 3 L 12/09/23 08:00 O2 Del Method Nasal Cannula 12/09/23 08:00 O2 Flow Rate 3 12/09/23 04:00 FiO2 40 12/02/23 04:00 Oxygen Flow Rate 2 11/10/23 07:30 BMI result Body Mass Index 34.7 Const: Other: Constitutional : Awake, interactive, looks more anxious and restless eyes: with mild mydriasis Cardiovascular : RRR, no JVP, trace lower extremity edema Respiratory : good bilateral air entry, no crackles, wheezes or rhonchi Gastrointestinal: soft, lax, Normal bowel sounds, Non tender Skin : Warm, Dry Neurological : Alert & oriented to self and place, No focal deficit Psych: restless, agitated on occasions Objective Data Active Medications Acetaminophen (Acetaminophen 325 Mg Tablet) 975 mg PO Q6H PRN PRN Reason: mild pain, headache or fever Last Admin: 12/07/23 14:43 Dose: 975 mg Documented By: MIRTA Albuterol Sulfate (Albuterol Sulfate (0.083%) 2.5 Mg/3 Ml Vial.Neb) 2.5 mg INHALE Q4H PRN PRN Reason: Shortness of Breath/Wheezing Albuterol/Ipratropium (Albuterol/Iprat 2.5/0.5mg 3 Ml Ampul.Neb) 3 ml INHALE RQ4H WHILE AWAKE [facility] Last Admin: 12/09/23 09:46 Dose: 3 ml Documented By: MIKAYLA Allopurinol (Allopurinol 300 Mg Tablet) 150 mg PO DAILY [facility] Last Admin: 12/09/23 08:33 Dose: 150 mg Documented By: OLGA Amiodarone HCl (Amiodarone Hcl 200 Mg Tablet) 200 mg PO DAILY [facility] Last Admin: 12/09/23 08:21 Dose: 200 mg Documented By: OLGA Apixaban (Apixaban 5 Mg Tablet) 5 mg PO BID [facility] Last Admin: 12/09/23 08:21 Dose: 5 mg Documented By: OLGA Benzocaine (Throat Lozenge, Medicated Lozenge) 1 lozenge MUCOUS MEM Q2H PRN PRN Reason: Sore Throat Last Admin: 12/02/23 08:29 Dose: 1 lozenge Documented By: JAMEY Diltiazem HCl (Diltiazem Hcl Cd 240 Mg Cap.Er.Deg) 240 mg PO DAILY [facility]; Protocol Last Admin: 12/09/23 08:21 Dose: 240 mg Documented By: OLGA Docusate Sodium (Docusate Sodium 100 Mg Capsule) 100 mg PO BID PRN PRN Reason: constipation Last Admin: 12/02/23 13:16 Dose: 100 mg Documented By: JAMEY Fluticasone/Vilanterol (Fluticasone/Vilanterol 100/25 Blst.W.Dev) 1 puff INHALE RDAILY [facility] Last Admin: 12/09/23 07:58 Dose: Not Given Documented By: ADEOLA Non-Admin Reason: Patient Refused Glucose (Glucose Gel 15 Gm Gel..Gram.) 15 gm PO Q15M PRN; Protocol PRN Reason: per Hypoglycemia Standing Ord. Guaifenesin/Dextromethorphan (Guaifenesin Dm 600/30 1 Tab Tab.Er.12h) 1 tab PO BID [facility] Last Admin: 12/09/23 08:33 Dose: 1 tab Documented By: OLGA Ceftriaxone Sodium 1 gm/ (Sodium Chloride) 50 mls @ 100 mls/hr IV Q24H [facility] Last Infusion: 12/08/23 16:54 Dose: Infused Documented By: OLGA Insulin Glargine (Insulin Glargine,Hum.Rec.Anlog 100 Unit/Ml 10 Ml Vial) 21 unit SUBCUT BEDTIME [facility] Last Admin: 12/08/23 21:31 Dose: 21 unit Documented By: NATALIYA Insulin Glargine (Insulin Glargine,Hum.Rec.Anlog 100 Unit/Ml 10 Ml Vial) 7 unit SUBCUT DAILY [facility] Last Admin: 12/09/23 08:33 Dose: 7 unit Documented By: OLGA Insulin Human Lispro (Insulin Lispro 100 Unit/Ml 3 Ml Vial) 0 unit SUBCUT QIDACHS [facility]; Protocol Last Admin: 12/09/23 08:21 Dose: 2 unit Documented By: OLGA Lidocaine (Lidocaine 4 % Patch Adh..Patch) 1 patch TRANSDERMA DAILY [facility]; Protocol Last Admin: 12/09/23 08:34 Dose: 1 patch Documented By: OLGA Lorazepam (Lorazepam 2 Mg/Ml Vial) 1 mg IM ONCE PRN PRN Reason: anxiety/restlessness Nicotine (Nicotine 14 Mg Patch.Td24) 14 mg TRANSDERMA DAILY [facility] Last Admin: 12/09/23 08:33 Dose: 14 mg Documented By: OLGA Nystatin (Nystatin Oral Susp 500,000 Unit/5 Ml Oral.Susp) 500,000 unit PO QID [facility]; Protocol Last Admin: 12/08/23 21:34 Dose: 500,000 unit Documented By: NATALIYA Omeprazole (Omeprazole 20 Mg Capsule.) 20 mg PO BID@0630,1630 [facility] Last Admin: 12/09/23 05:59 Dose: Not Given Documented By: NATALIYA Non-Admin Reason: Patient Refused Ondansetron HCl (Ondansetron Hcl 4 Mg/2 Ml Vial) 4 mg IVPUSH Q8H PRN PRN Reason: Nausea and Vomiting Last Admin: 11/12/23 20:05 Dose: 4 mg Documented By: BRAD Oxycodone HCl (Oxycodone Hcl Immed Release 5 Mg Tablet) 5 mg PO Q6H PRN PRN Reason: Pain, Severe (Pain Scale 7-10) Last Admin: 12/09/23 08:21 Dose: 5 mg Documented By: OLGA Paroxetine HCl (Paroxetine Hcl 20 Mg Tablet) 20 mg PO DAILY@0900 [facility] Last Admin: 12/09/23 08:33 Dose: 20 mg Documented By: OLGA Prednisone (Prednisone 10 Mg Tablet) 10 mg PO DAILY [facility] Last Admin: 12/09/23 08:33 Dose: 10 mg Documented By: OLGA Sodium Chloride (0.9 % Sodium Chloride Flush 3 Ml Syringe) [facility] Last Admin: 06/30/24 08:22 Dose: 3 ml Documented By: OLGA Labs 12/08/23 18:00 12/08/23 17:59 Labs: Laboratory Results - last 24 hr 12/08/23 12/08/23 12/08/23 11:14 15:07 16:27 MCV MCH MCHC RDW Plt Count MPV Absolute Nucleated RBC Nucleated RBC % (auto) Anion Gap Estim Creat Clear Calc Estimated GFR POC Glucose 267 H 208 H Random Glucose Calcium Urine Color Dark Yellow Urine Appearance Turbid Urine pH 5.5 Ur Specific [place] 1.020 Urine Protein 100 (2+) H Urine Glucose (UA) 500 H Urine Ketones Negative Urine Blood Large (3+) H Urine Nitrite Positive H Ur Leukocyte Esterase Large (3+) H Urine RBC >20 H Urine WBC >50 H Ur Squamous Epith Cells 6-10 Urine Bacteria 4+ Hyaline Casts 6-10 12/08/23 12/08/23 12/08/23 17:59 18:00 19:52 MCV 96.6 MCH 30.4 MCHC 31.5 RDW 19.4 H Plt Count 149 L D MPV 11.3 Absolute Nucleated RBC 0.020 H Nucleated RBC % (auto) 0.1 Anion Gap 17 Estim Creat Clear Calc 83.6 Estimated GFR > 60 POC Glucose 181 H Random Glucose 169 H Calcium 8.9 Urine Color Urine Appearance Urine pH Ur Specific [place] Urine Protein Urine Glucose (UA) Urine Ketones Urine Blood Urine Nitrite Ur Leukocyte Esterase Urine RBC Urine WBC Ur Squamous Epith Cells Urine Bacteria Hyaline Casts 12/09/23 07:54 MCV MCH MCHC RDW Plt Count MPV Absolute Nucleated RBC Nucleated RBC % (auto) Anion Gap Estim Creat Clear Calc Estimated GFR POC Glucose 130 H Random Glucose Calcium Urine Color Urine Appearance Urine pH Ur Specific [place] Urine Protein Urine Glucose (UA) Urine Ketones Urine Blood Urine Nitrite Ur Leukocyte Esterase Urine RBC Urine WBC Ur Squamous Epith Cells Urine Bacteria Hyaline Casts Assessment and Plan (1) Anxiety with restlessness: Status: Acute (2) Pulmonary edema: Status: Acute (3) Thrombocytopenia: Status: Acute (4) Acute on chronic anemia: Status: Acute (5) Aspiration pneumonia: Status: Acute (6) Acute hypoxemic respiratory failure: Status: Acute (7) UTI (urinary tract infection): Status: Acute Plan 78yo F with PAF on apixaban, COPD not on hO2, gout, HF with unknown EF, and DM2. presented with AMS, admitted for hypoxia due to CAP + COPD. developed worsening hypoxia due to aspiration and intubated on 11/13/23 . extubated 11/14/23 and stepped down to telemetry 11/15/23. developed LGIB + CHF/COPD exacerbations. still on HFNC but gradually weaning # UTI No septic, chronic leukocytosis from steroids Pending cultures Ceftriaxone 1gm IV # Restlessness, increase anxiety with Narcotic seeking behaviour insisting on getting IV Morphine to help her pain still refusing to go to SNF on Oxycodone during this hospital stay, continue PRN get Addiction team eval Ativan PRN reorientation as needed #Acute hypoxic respiratory failure due to acute/chronic HFpEF and acute COPD exacerbation and aspiration pneumonia that required intubation--hypoxia now resolved. #Acute HFpEF--diuressed with IV Lasix and todate negative 18 L, BNP 80, Change to oral Lasix 40 mg bid #COPD exacerbation--Has been on steroid for nearly entire hospital stay. nathan off steroid, presently on 10 mg daily since 12/04. continue bronchodilators by Neb. -Incentive spirometry # Aspiration pneumonia/Enterococcus faecalis bacteremia [positive BCx 10/29, repeat BCx 11/01 and 11/12 negative] azithro 10/30-11/04, vanco 10/30-10/31, ceftriaxone 10/31-11/01, pip-don 11/01- and again 11/12-11/22, dapto 11/06-11/12. Total 21d antibiotics from 11/01 completed per ID recommendation #Dysphagia--MBS 12/02 silent aspiration..[employer] rec NDD3, [place] thick liquid, meds whole with puree #ABLA d/t LGIB, resolved. #DM2 with steroid-induced hyperglycemia, hyperglycemia overall improved. Continue Lantus at 21 at HS, reduce AM dose to 7, continue sliding scale #hypOkalemia, replaced and resolved. #Hypernatremia-resolved #pancreatic abnormality - CT Abdomen/Pelvis: Abrupt pancreatic size change with atrophy and ductal dilation beyond the neck; extra and intrahepatic biliary dilation up to the ampulla. - MRI: No pancreatic masses; changing pancreatic duct caliber with distal atrophy and ductal tortuosity and dilation, possible stricture. Distended gallbladder with sludge and small stones, common bile duct 1.4 cm with no intraductal defects, moderate intrahepatic biliary ductal dilation possibly due to biliary dyskinesia. - No abdominal pain, normal LFTs. Per GI, no aggressive invasive procedures recommended as the patient is asymptomatic. #AF/RVR- resolvdr. Continue amiodarone, cardizem and eliquis # moderate protein/oscar malnutrition, supplements #thrmbocytopenia--from acute illness resolved #Gout --Allopurinol #Mood disorder--Paroxetine #Urinary retention 12/04--persistent after multiple straight cath, Zafar and urology consult today Has not been participating in PT, but will need rehab vs retirement care CODE STATUS: DNR/DNI, confirmed with pt and her daughter and reaffirmed 11/20 DVT PPx; Eliquis reason for continued hospitalization: Restlessness and narcotic withdrawal will need placment. Quality Stroke Does the patient have a stroke diagnosis?: No VTE Prior VTE?: No VTE Risk Level:: Medical - moderate - high VTE Device Contraindication: Treatment Not Indicated VTE Drug Contraindication: N/A - Med Ordered
[2023-12-09] MEDS: Furosemide 40 MG/4 ML VIAL IVPUSH (11:03)
[2023-12-09] MEDS: guaiFENesin LA 600 MG TAB.ER.12H PO ×2 (11:05→20:31)
[2023-12-09 11:19] LABS: Glucose, Whole Blood 242 mg/dL (60-115)
[2023-12-09] MEDS: Acetaminophen 325 MG TABLET 975 MG PO (13:17)
--- NOTE | 2023-12-09 13:17 | PC.NURSE ---
Yelling ,crying demanding pain medication now, stated that she is a lot of pain everywhere. Incontinent with urine and stool , personal care provided by RN and FRANCISCA, pt stated that she can t wait more than 1 hr for pain medication . RN reached out to DR Mario and ordered to give oxycodne dose early together with the Tylenol
[2023-12-09] MEDS: cefTRIAXone sodium 1 GM in 0.9 % Sodium Chloride 50 ML IV (15:54)
[2023-12-09] MEDS: Omeprazole 20 MG CAPSULE.DR PO (16:04)
[2023-12-09] MEDS: Nystatin Oral Susp 500,000 UNIT/5 ML ORAL.SUSP 500000 UNIT PO ×2 (16:04→20:31)
[2023-12-09 16:25] LABS: Glucose, Whole Blood 239 mg/dL (60-115)
[2023-12-09] MEDS: Furosemide 40 MG TABLET PO (17:13)
[2023-12-09] MEDS: Metoprolol Tartrate 5 MG/5 ML VIAL IVPUSH (20:31)
[2023-12-09] MEDS: Insulin Glargine,Hum.rec.anlog 100 UNIT/ML 10 ML VIAL 21 UNIT SUBCUT (20:33)
[2023-12-09 20:44] LABS: Glucose, Whole Blood 204 mg/dL (60-115)
[2023-12-10] VITALS (15 sets, daily range): BP systolic 126–138; BP diastolic 55–75; PULSE 79–128; RESP 18–34; TEMP 36.2–36.7; O2SAT 91–99; BMI 34.1
[2023-12-10] MEDS: oxyCODONE HCl Immed Release 5 MG TABLET PO ×4 (00:32→18:40)
[2023-12-10] MEDS: Albuterol Sulfate (0.083%) 2.5 MG/3 ML VIAL.NEB INHALE (01:03)
[2023-12-10 03:40] LABS: ABG Base Excess 10.8 mmol/L; ABG HCO3 35 mmol/L (22-26); ABG pCO2 46 mmHg (32-45); ABG pH 7.48 (7.35-7.45); ABG pO2 47 mmHg (83-108)
[2023-12-10 03:41] LABS: ABG Refer to POC result
[2023-12-10] MEDS: Albuterol/Iprat 2.5/0.5MG 3 ML AMPUL.NEB INHALE ×5 (03:43→19:47)
[2023-12-10] MEDS: Omeprazole 20 MG CAPSULE.DR PO ×2 (05:18→17:48)
[2023-12-10] MEDS: Metoprolol Tartrate 5 MG/5 ML VIAL IVPUSH (05:18)
[2023-12-10] MEDS: Furosemide 40 MG/4 ML VIAL IVPUSH ×2 (06:28→17:48)
[2023-12-10 06:42] LABS: MANUAL DIFF FLAG NO
[2023-12-10 06:46] LABS: Basophils Percent Auto 0.2 % (0-2); Eosinophils Absolute Auto 0.3 X10*3/uL (0.0-0.4); Eosinophils Percent Auto 1.8 % (0-4); Hematocrit 30.3 % (37.0-47.0); Hemoglobin 9.6 g/dl (12.0-16.0); Imm Gran Abs Auto 0.09 X10*3/uL (0.00-0.03); Imm Gran Pct Auto 0.6 % (0.0-0.4); Lymphocytes Absolute Auto 1.1 X10*3/uL (1.2-4.9); Lymphocytes Percent Auto 7.9 % (20-40); Mean Corpuscular HGB Conc 31.7 g/dl (31.0-35.0); Mean Corpuscular Hemoglobin 31.2 pg (27.0-33.0); Mean Corpuscular Volume 98.4 fL (80.0-98.0); Mean Platelet Volume 10.8 fL (9.4-12.3); Monocytes Absolute Auto 0.8 X10*3/uL (0.1-1.2); Monocytes Percent Auto 5.7 % (2-11); Neutrophils Absolute Auto 11.8 x10*3/uL (2.0-8.3); Neutrophils Percent Auto 83.8 % (45-73); Platelet Count 146 X10*3/uL (160-400); Red Blood Count 3.08 X10*6/uL (4.20-5.50); Red Cell Distribution Width 19.6 % (11.0-16.0); White Blood Count 14.1 X10*3/uL (4.8-10.8)
--- NOTE | 2023-12-10 07:08 | PC.NURSE ---
RN resumed care around 1900 patient was in Afib RVR MD made aware and patient was given IV metoprolol with some effect. Arouns 0010 patient became increasingly SOB , she was desating and RR were elevated . RT was notified along with MD , RT came and gave patient updraft treatment patient work of breathing improved but she was still in distress . Patient O2 was not sustained above 88 % MD made aware and CXR was ordered along with ABGS. Another dose of metoprolol along with lasix was administered. With effectiveness. Patient shows some improvement, her lung sounds are rhonchorus in the anterior lobes and crackles in the bases. Patient uses call navarrete appropriately. Report given to day RN .
[2023-12-10 07:09] LABS: Glucose, Whole Blood 177 mg/dL (60-115)
[2023-12-10 07:10] LABS: Alanine Aminotransferase 22 U/L (0-31); Alkaline Phosphatase 77 U/L (39-117); Anion Gap 17 (12-20); Aspartate Amino Transferase 18 U/L (5-31); Bilirubin Total 0.4 mg/dL (0.0-1.0); Blood Urea Nitrogen 27 mg/dL (9-16); Calcium 8.8 mg/dL (8.4-10.2); Carbon Dioxide 27 mmol/L (22-29); Chloride 100 mmol/L (96-108); Creatinine Clr Calc Pharmacy 81.3; Estimated Glomerular Filt Rate > 60; Glucose Random 182 mg/dL (60-115); Potassium 3.6 mmol/L (3.3-5.1); Sodium 140 mmol/L (135-145); Total Protein 5.7 g/dL (6.5-8.0)
[2023-12-10] MEDS: Fluticasone/Vilanterol 100/25 BLST.W.DEV 1 PUFF INHALE (07:54)
[2023-12-10] MEDS: Insulin Glargine,Hum.rec.anlog 100 UNIT/ML 10 ML VIAL 7 UNIT SUBCUT (08:18)
[2023-12-10] MEDS: Insulin Lispro 100 UNIT/ML 3 ML VIAL SUBCUT ×4 (08:18→21:48)
[2023-12-10] MEDS: dilTIAZem HCL CD 240 MG CAP.ER.DEG PO (08:19)
[2023-12-10] MEDS: Apixaban 5 MG TABLET PO ×2 (08:19→21:48)
[2023-12-10] MEDS: guaiFENesin DM 600/30 1 TAB TAB.ER.12H PO ×2 (08:19→21:47)
[2023-12-10] MEDS: Amiodarone HCL 200 MG TABLET PO (08:19)
[2023-12-10] MEDS: Nystatin Oral Susp 500,000 UNIT/5 ML ORAL.SUSP 500000 UNIT PO ×3 (08:19→21:47)
[2023-12-10] MEDS: guaiFENesin LA 600 MG TAB.ER.12H PO ×2 (08:19→21:47)
[2023-12-10] MEDS: PARoxetine HCL 20 MG TABLET PO (08:19)
[2023-12-10] MEDS: Nicotine 14 MG PATCH.TD24 TRANSDERMA (08:20)
[2023-12-10] MEDS: Lidocaine 4 % Patch ADH..PATCH 1 PATCH TRANSDERMA (08:20)
[2023-12-10] MEDS: allopurinoL 300 MG TABLET 150 MG PO (08:20)
[2023-12-10] MEDS: 0.9 % Sodium Chloride Flush 3 ML SYRINGE IVFLUSH ×3 (08:21→21:49)
[2023-12-10] MEDS: Acetaminophen 325 MG TABLET 975 MG PO ×2 (08:28→17:48)
[2023-12-10] MEDS: predniSONE 10 MG TABLET PO (08:46)
[2023-12-10 11:17] LABS: Glucose, Whole Blood 218 mg/dL (60-115)
--- NOTE | 2023-12-10 13:15 | MHC.CM.PN ---
Per provider, pt.'s DC is on hold for a day or 2, She has been agitated and will be tested for UTI. [facility] has been updated.
--- NOTE | 2023-12-10 13:53 | HO.PM.IMPN ---
Subjective Subjective Date of Service: 12/10/23 Interval History: less anxious and restless this morning asking for pain medication Urine growing E.Coli Back into Afib rvR, better controlled now no other events Review of Systems Review of Systems: Yes all other systems are reviewed and are negative Physical Exam Vital Signs: Vital Signs: Last Vital Signs Temp 97.1 F 12/10/23 11:42 Pulse 109 H 12/10/23 11:42 Resp 20 12/10/23 11:42 BP 128/55 L 12/10/23 11:42 Pulse Ox 97 12/10/23 11:42 O2 Del Method Nasal Cannula 12/10/23 11:42 O2 Flow Rate 4 12/10/23 11:42 FiO2 40 12/02/23 04:00 Oxygen Flow Rate 2 11/10/23 07:30 BMI result Body Mass Index 34.1 Const: Other: Constitutional : Awake, interactive, looks more anxious and restless eyes: with mild mydriasis Cardiovascular : RRR, no JVP, trace lower extremity edema Respiratory : good bilateral air entry, no crackles, wheezes or rhonchi Gastrointestinal: soft, lax, Normal bowel sounds, Non tender Skin : Warm, Dry Neurological : Alert & oriented to self and place, No focal deficit Psych: restless, agitated on occasions Objective Data Active Medications Acetaminophen (Acetaminophen 325 Mg Tablet) 975 mg PO Q6H PRN PRN Reason: mild pain, headache or fever Last Admin: 12/10/23 08:28 Dose: 975 mg Documented By: RONALD Albuterol Sulfate (Albuterol Sulfate (0.083%) 2.5 Mg/3 Ml Vial.Neb) 2.5 mg INHALE Q4H PRN PRN Reason: Shortness of Breath/Wheezing Last Admin: 12/10/23 01:03 Dose: 2.5 mg Documented By: MAGNUS Albuterol/Ipratropium (Albuterol/Iprat 2.5/0.5mg 3 Ml Ampul.Neb) 3 ml INHALE RQ4H WHILE AWAKE [facility] Last Admin: 12/10/23 11:35 Dose: 3 ml Documented By: AC Allopurinol (Allopurinol 300 Mg Tablet) 150 mg PO DAILY [facility] Last Admin: 12/10/23 08:20 Dose: 150 mg Documented By: RONALD Amiodarone HCl (Amiodarone Hcl 200 Mg Tablet) 200 mg PO DAILY [facility] Last Admin: 12/10/23 08:19 Dose: 200 mg Documented By: RONALD Apixaban (Apixaban 5 Mg Tablet) 5 mg PO BID [facility] Last Admin: 12/10/23 08:19 Dose: 5 mg Documented By: RONALD Benzocaine (Throat Lozenge, Medicated Lozenge) 1 lozenge MUCOUS MEM Q2H PRN PRN Reason: Sore Throat Last Admin: 12/02/23 08:29 Dose: 1 lozenge Documented By: JAMEY Diltiazem HCl (Diltiazem Hcl Cd 240 Mg Cap.Er.Deg) 240 mg PO DAILY [facility]; Protocol Last Admin: 12/10/23 08:19 Dose: 240 mg Documented By: RONALD Docusate Sodium (Docusate Sodium 100 Mg Capsule) 100 mg PO BID PRN PRN Reason: constipation Last Admin: 12/02/23 13:16 Dose: 100 mg Documented By: JAMEY Fluticasone/Vilanterol (Fluticasone/Vilanterol 100/25 Blst.W.Dev) 1 puff INHALE RDAILY [facility] Last Admin: 12/10/23 07:54 Dose: 1 puff Documented By: AC Furosemide (Furosemide 40 Mg/4 Ml Vial) 40 mg IVPUSH BID@0630,1800 [facility]; Protocol Last Admin: 12/10/23 06:28 Dose: 40 mg Documented By: WILLY Glucose (Glucose Gel 15 Gm Gel..Gram.) 15 gm PO Q15M PRN; Protocol PRN Reason: per Hypoglycemia Standing Ord. Guaifenesin (Guaifenesin [place] 600 Mg Tab.Er.12h) 600 mg PO BID [facility] Last Admin: 12/10/23 08:19 Dose: 600 mg Documented By: RONALD Guaifenesin/Dextromethorphan (Guaifenesin Dm 600/30 1 Tab Tab.Er.12h) 1 tab PO BID [facility] Last Admin: 12/10/23 08:19 Dose: 1 tab Documented By: RONALD Ceftriaxone Sodium 1 gm/ (Sodium Chloride) 50 mls @ 100 mls/hr IV Q24H [facility] Last Infusion: 12/09/23 16:49 Dose: Infused Documented By: OLGA Insulin Glargine (Insulin Glargine,Hum.Rec.Anlog 100 Unit/Ml 10 Ml Vial) 21 unit SUBCUT BEDTIME [facility] Last Admin: 12/09/23 20:33 Dose: 21 unit Documented By: WILLY Insulin Glargine (Insulin Glargine,Hum.Rec.Anlog 100 Unit/Ml 10 Ml Vial) 7 unit SUBCUT DAILY [facility] Last Admin: 12/10/23 08:18 Dose: 7 unit Documented By: RONALD Insulin Human Lispro (Insulin Lispro 100 Unit/Ml 3 Ml Vial) 0 unit SUBCUT QIDACHS [facility]; Protocol Last Admin: 12/10/23 11:42 Dose: 6 unit Documented By: RONALD Lidocaine (Lidocaine 4 % Patch Adh..Patch) 1 patch TRANSDERMA DAILY [facility]; Protocol Last Admin: 12/10/23 08:20 Dose: 1 patch Documented By: RONALD Lorazepam (Lorazepam 2 Mg/Ml Vial) 1 mg IM ONCE PRN PRN Reason: anxiety/restlessness Nicotine (Nicotine 14 Mg Patch.Td24) 14 mg TRANSDERMA DAILY [facility] Last Admin: 12/10/23 08:20 Dose: 14 mg Documented By: RONALD Nystatin (Nystatin Oral Susp 500,000 Unit/5 Ml Oral.Susp) 500,000 unit PO QID [facility]; Protocol Last Admin: 12/10/23 08:19 Dose: 500,000 unit Documented By: RONALD Omeprazole (Omeprazole 20 Mg Capsule.Dr) 20 mg PO BID@0630,1630 [facility] Last Admin: 12/10/23 05:18 Dose: 20 mg Documented By: WILLY Ondansetron HCl (Ondansetron Hcl 4 Mg/2 Ml Vial) 4 mg IVPUSH Q8H PRN PRN Reason: Nausea and Vomiting Last Admin: 11/12/23 20:05 Dose: 4 mg Documented By: BRAD Oxycodone HCl (Oxycodone Hcl Immed Release 5 Mg Tablet) 5 mg PO Q6H PRN PRN Reason: Pain, Severe (Pain Scale 7-10) Last Admin: 12/10/23 11:41 Dose: 5 mg Documented By: RONALD Paroxetine HCl (Paroxetine Hcl 20 Mg Tablet) 20 mg PO DAILY@0900 [facility] Last Admin: 12/10/23 08:19 Dose: 20 mg Documented By: RONALD Prednisone (Prednisone 10 Mg Tablet) 10 mg PO DAILY [facility] Last Admin: 12/10/23 08:46 Dose: 10 mg Documented By: RONALD Sodium Chloride (0.9 % Sodium Chloride Flush 3 Ml Syringe) 3 ml IVFLUSH QSHIFT [facility] Last Admin: 12/10/23 08:21 Dose: 3 ml Documented By: RONALD Labs 12/10/23 06:37 12/10/23 06:37 Labs: Laboratory Results - last 24 hr 12/09/23 12/09/23 12/10/23 16:19 20:40 03:32 MCV MCH MCHC RDW Plt Count MPV Immature Gran % (Auto) Neut % (Auto) Lymph % (Auto) [place] % (Auto) Eos % (Auto) Baso % (Auto) Lymph # (Auto) [place] # (Auto) Eos # (Auto) Baso # (Auto) Abs Immat Gran (auto) Absolute Neuts (auto) Absolute Nucleated RBC Nucleated RBC % (auto) O2 Saturation 77.0 ABG pH at Pt Temp 7.48 H ABG pCO2 at Pt Temp 46 H ABG pO2 at Pt Temp 47 L* ABG HCO3 35 H ABG Base Excess (Actual) 10.8 Anion Gap Estim Creat Clear Calc Estimated GFR POC Glucose 239 H 204 H Random Glucose Calcium Magnesium Total Bilirubin AST ALT Alkaline Phosphatase Total Protein Albumin 12/10/23 12/10/23 12/10/23 06:37 07:05 11:11 MCV 98.4 H MCH 31.2 MCHC 31.7 RDW 19.6 H Plt Count 146 L MPV 10.8 Immature Gran % (Auto) 0.6 H Neut % (Auto) 83.8 H Lymph % (Auto) 7.9 L [place] % (Auto) 5.7 Eos % (Auto) 1.8 Baso % (Auto) 0.2 Lymph # (Auto) 1.1 L [place] # (Auto) 0.8 Eos # (Auto) 0.3 Baso # (Auto) 0.0 Abs Immat Gran (auto) 0.09 H Absolute Neuts (auto) 11.8 H Absolute Nucleated RBC 0.000 Nucleated RBC % (auto) 0.0 O2 Saturation ABG pH at Pt Temp ABG pCO2 at Pt Temp ABG pO2 at Pt Temp ABG HCO3 ABG Base Excess (Actual) Anion Gap 17 Estim Creat Clear Calc 81.3 Estimated GFR > 60 POC Glucose 177 H 218 H Random Glucose 182 H Calcium 8.8 Magnesium 2.0 Total Bilirubin 0.4 AST 18 ALT 22 Alkaline Phosphatase 77 Total Protein 5.7 L Albumin 3.0 L Microbiology Microbiology Results: Microbiology 12/08/23 Unknown Urine Culture - Final Urine Catheterized - Zafar Catheter Escherichia coli Assessment and Plan (1) UTI (urinary tract infection): Status: Acute (2) Pulmonary edema: Status: Acute (3) Acute hypoxemic respiratory failure: Status: Acute (4) Atrial fibrillation with rapid ventricular response: Status: Acute Plan 78yo F with PAF on apixaban, COPD not on hO2, gout, HF with unknown EF, and DM2. presented with AMS, admitted for hypoxia due to CAP + COPD. developed worsening hypoxia due to aspiration and intubated on 11/13/23 . extubated 11/14/23 and stepped down to telemetry 11/15/23. developed LGIB + CHF/COPD exacerbations. still on HFNC but gradually weaning # E.Coli UTI Ceftriaxone 1gm IV # Restlessness, increase anxiety with Narcotic seeking behaviour insisting on getting IV Morphine to help her pain still refusing to go to SNF on Oxycodone during this hospital stay, continue PRN Addiction team to follow Ativan PRN reorientation as needed #AF/RVR Improved after 2 IV Metoprolol Continue amiodarone, cardizem and eliquis keep on Tele #Acute hypoxic respiratory failure due to acute/chronic HFpEF and acute COPD exacerbation and aspiration pneumonia that required intubation--hypoxia now resolved. #Acute HFpEF--diuressed with IV Lasix and todate negative 18 L, BNP 80, Change to oral Lasix 40 mg bid #COPD exacerbation--Has been on steroid for nearly entire hospital stay. nathan off steroid, presently on 10 mg daily since 12/04. continue bronchodilators by Neb. -Incentive spirometry # Aspiration pneumonia/Enterococcus faecalis bacteremia [positive BCx 10/29, repeat BCx 11/01 and 11/12 negative] azithro 10/30-11/04, vanco 10/30-10/31, ceftriaxone 10/31-11/01, pip-don 11/01- and again 11/12-11/22, dapto 11/06-11/12. Total 21d antibiotics from 11/01 completed per ID recommendation #Dysphagia--MBS 12/02 silent aspiration..[employer]ER rec NDD3, [place] thick liquid, meds whole with puree #ABLA d/t LGIB, resolved. #DM2 with steroid-induced hyperglycemia, hyperglycemia overall improved. Continue Lantus at 21 at HS, reduce AM dose to 7, continue sliding scale #hypOkalemia, replaced and resolved. #Hypernatremia-resolved #pancreatic abnormality - CT Abdomen/Pelvis: Abrupt pancreatic size change with atrophy and ductal dilation beyond the neck; extra and intrahepatic biliary dilation up to the ampulla. - MRI: No pancreatic masses; changing pancreatic duct caliber with distal atrophy and ductal tortuosity and dilation, possible stricture. Distended gallbladder with sludge and small stones, common bile duct 1.4 cm with no intraductal defects, moderate intrahepatic biliary ductal dilation possibly due to biliary dyskinesia. - No abdominal pain, normal LFTs. Per GI, no aggressive invasive procedures recommended as the patient is asymptomatic. # moderate protein/oscar malnutrition, supplements #thrmbocytopenia--from acute illness resolved #Gout --Allopurinol #Mood disorder--Paroxetine #Urinary retention 12/04--persistent after multiple straight cath, Zafar and urology consult today Has not been participating in PT, but will need rehab vs correction care CODE STATUS: DNR/DNI, confirmed with pt and her daughter and reaffirmed 11/20 DVT PPx; Eliquis reason for continued hospitalization: Restlessness and narcotic withdrawal will need placment. Quality Stroke Does the patient have a stroke diagnosis?: No VTE Prior VTE?: No VTE Risk Level:: Medical - moderate - high VTE Device Contraindication: Treatment Not Indicated VTE Drug Contraindication: N/A - Med Ordered
--- NOTE | 2023-12-10 15:47 | HO.ADDICT_ITS ---
History of Present Illness Date of Service: 12/10/2023 Chief Complaint: COPD, Afib Reason for Consult: ?opiate dependance Sources of Information: chart reviewed HPI Narrative: Information gathered from chart review Patient is a 78 year old female who has been admitted to [facility] since 10/30/23 for AMS and hypoxia d/t COPD exacerbation. Chart review shows that patient was c/o back pain (which is chronic) and eventually was ordered PRN morphine -recioeved this from 11/03-11/11. She was then transitioned to oxycodone 5mg Q4H pRN and most recently oxycodone q 6 hrs prn. On 12/04 and 12/05 she did recieve additional doses of IV morpine. She was scheduled to discharge to [facility] on 12/06, however she refused and is reportedly requesting additional pain medication. Additional chart review shows that patient was seen by [facility] Pain management and was in process of working towards neurostimulator placement. Pain managment note makes reference to patient previously being prescribed opiates for pain (morphine) however was tapered off due to +UDS for cocaine. PCP note from [facility] states that patient was last seen in August and at that time was requesting prescription for oxycodone due to pain. This was declined due to previous history. Per Donovan, last morphine rx was in March 2022. Review of Systems Review of Systems patient not seen Diagnostics Vital Signs (24Hr): Vital Signs - 24 hr 12/09/23 16:00 12/09/23 16:03 12/09/23 20:05 Temperature 97.6 F 96.6 F L Pulse Rate 100 129 H 104 H Respiratory Rate 20 20 18 Blood Pressure 148/93 H 141/99 H Pulse Oximetry 95 Oxygen Delivery Method Nasal Cannula Nasal Cannula Oxygen Flow Rate 3 3 12/09/23 23:29 12/10/23 01:03 12/10/23 01:04 Temperature 96.7 F L Pulse Rate 84 113 H Respiratory Rate 18 32 H 34 H Blood Pressure 157/64 H Pulse Oximetry 97 Oxygen Delivery Method Nasal Cannula Oxygen Flow Rate 3 12/10/23 03:44 12/10/23 03:45 12/10/23 03:59 Temperature 97.8 F Pulse Rate 128 H 110 H Respiratory Rate 25 H 25 H 18 Blood Pressure 138/75 Pulse Oximetry 97 Oxygen Delivery Method Oxygen Flow Rate 12/10/23 07:55 12/10/23 08:00 12/10/23 11:36 Temperature 97.8 F Pulse Rate 110 H 117 H 117 H Respiratory Rate 18 18 18 Blood Pressure 138/67 Pulse Oximetry 97 Oxygen Delivery Method Nasal Cannula Oxygen Flow Rate 4 12/10/23 11:42 12/10/23 15:11 Temperature 97.1 F Pulse Rate 109 H 109 H Respiratory Rate 20 20 Blood Pressure 128/55 L Pulse Oximetry 97 Oxygen Delivery Method Nasal Cannula Oxygen Flow Rate 4 BMI result Body Mass Index 34.1 Labs 12/10/23 06:37 12/10/23 06:37 Labs: Laboratory Results - last 48 hr 12/08/23 12/08/23 12/08/23 16:27 17:59 18:00 WBC 15.8 H RBC 3.22 L Hgb 9.8 L Hct 31.1 L MCV 96.6 MCH 30.4 MCHC 31.5 RDW 19.4 H Plt Count 149 L D MPV 11.3 Immature Gran % (Auto) Neut % (Auto) Lymph % (Auto) [place] % (Auto) Eos % (Auto) Baso % (Auto) Lymph # (Auto) [place] # (Auto) Eos # (Auto) Baso # (Auto) Abs Immat Gran (auto) Absolute Neuts (auto) Absolute Nucleated RBC 0.020 H Nucleated RBC % (auto) 0.1 O2 Saturation ABG pH at Pt Temp ABG pCO2 at Pt Temp ABG pO2 at Pt Temp ABG HCO3 ABG Base Excess (Actual) Sodium 141 Potassium 4.8 D Chloride 103 Carbon Dioxide 26 Anion Gap 17 BUN 24 H Creatinine 0.60 Estim Creat Clear Calc 83.6 Estimated GFR > 60 POC Glucose 208 H Random Glucose 169 H Calcium 8.9 Magnesium Total Bilirubin AST ALT Alkaline Phosphatase Total Protein Albumin 12/08/23 12/09/23 12/09/23 19:52 07:54 11:14 WBC RBC Hgb Hct MCV MCH MCHC RDW Plt Count MPV Immature Gran % (Auto) Neut % (Auto) Lymph % (Auto) [place] % (Auto) Eos % (Auto) Baso % (Auto) Lymph # (Auto) [place] # (Auto) Eos # (Auto) Baso # (Auto) Abs Immat Gran (auto) Absolute Neuts (auto) Absolute Nucleated RBC Nucleated RBC % (auto) O2 Saturation ABG pH at Pt Temp ABG pCO2 at Pt Temp ABG pO2 at Pt Temp ABG HCO3 ABG Base Excess (Actual) Sodium Potassium Chloride Carbon Dioxide Anion Gap BUN Creatinine Estim Creat Clear Calc Estimated GFR POC Glucose 181 H 130 H 242 H Random Glucose Calcium Magnesium Total Bilirubin AST ALT Alkaline Phosphatase Total Protein Albumin 12/09/23 12/09/23 12/10/23 16:19 20:40 03:32 WBC RBC Hgb Hct MCV MCH MCHC RDW Plt Count MPV Immature Gran % (Auto) Neut % (Auto) Lymph % (Auto) [place] % (Auto) Eos % (Auto) Baso % (Auto) Lymph # (Auto) [place] # (Auto) Eos # (Auto) Baso # (Auto) Abs Immat Gran (auto) Absolute Neuts (auto) Absolute Nucleated RBC Nucleated RBC % (auto) O2 Saturation 77.0 ABG pH at Pt Temp 7.48 H ABG pCO2 at Pt Temp 46 H ABG pO2 at Pt Temp 47 L* ABG HCO3 35 H ABG Base Excess (Actual) 10.8 Sodium Potassium Chloride Carbon Dioxide Anion Gap BUN Creatinine Estim Creat Clear Calc Estimated GFR POC Glucose 239 H 204 H Random Glucose Calcium Magnesium Total Bilirubin AST ALT Alkaline Phosphatase Total Protein Albumin 12/10/23 12/10/23 12/10/23 06:37 07:05 11:11 WBC 14.1 H RBC 3.08 L Hgb 9.6 L Hct 30.3 L MCV 98.4 H MCH 31.2 MCHC 31.7 RDW 19.6 H Plt Count 146 L MPV 10.8 Immature Gran % (Auto) 0.6 H Neut % (Auto) 83.8 H Lymph % (Auto) 7.9 L [place] % (Auto) 5.7 Eos % (Auto) 1.8 Baso % (Auto) 0.2 Lymph # (Auto) 1.1 L [place] # (Auto) 0.8 Eos # (Auto) 0.3 Baso # (Auto) 0.0 Abs Immat Gran (auto) 0.09 H Absolute Neuts (auto) 11.8 H Absolute Nucleated RBC 0.000 Nucleated RBC % (auto) 0.0 O2 Saturation ABG pH at Pt Temp ABG pCO2 at Pt Temp ABG pO2 at Pt Temp ABG HCO3 ABG Base Excess (Actual) Sodium 140 Potassium 3.6 D Chloride 100 Carbon Dioxide 27 Anion Gap 17 BUN 27 H Creatinine 0.61 Estim Creat Clear Calc 81.3 Estimated GFR > 60 POC Glucose 177 H 218 H Random Glucose 182 H Calcium 8.8 Magnesium 2.0 Total Bilirubin 0.4 AST 18 ALT 22 Alkaline Phosphatase 77 Total Protein 5.7 L Albumin 3.0 L Imaging Radiology Impressions: ITS Impressions Chest X-Ray 10/30/23 18:05 IMPRESSION: 1. Crowding of interstitial lung markings at the bases concerning for possible interstitial infiltrate or atelectasis. 2. Blunting of right costophrenic angle probably small subpulmonic pleural effusion. Abdomen/Pelvis CT 11/02/23 15:42 IMPRESSION: The pancreas is abnormal. There is an abrupt change in size with atrophy and ductal dilation beyond the pancreatic neck. An occult lesion should be excluded. Extra and intrahepatic biliary dilation to the level of the ampulla. There are small gallstones layering in the gallbladder which is mildly distended. A nonopaque distal bile duct calculus cannot be excluded. Lower lung opacities most likely atelectasis. Nonspecific small round low attenuating lesion in the spleen. In the absence of a known primary malignancy this does not require specific imaging follow-up. Large amount of fecal residue. Pelvic floor relaxation. No abscess demonstrated Fleischner guidelines were followed. Chest CT 11/06/23 14:39 IMPRESSION: 1. Atelectasis in the right lower lobe adjacent to the elevation of right hemidiaphragm. 2. Mild coronary artery calcifications. 3. GI reflux. Fleischner guidelines were followed. Abdomen MRI 11/09/23 10:07 IMPRESSION: 1.0 cm signal dropout within the main pancreatic duct in the neck of the pancreas. There is changing caliber of the pancreatic duct with distal atrophy of the pancreatic parenchyma and tortuosity and dilatation of the duct measuring up to 6 mm. An underlying stricture cannot be excluded. Distended gallbladder with sludge and small stones. The common duct measures up to 1.4 cm at the mimi hepatis without intraductal filling defects. Moderate intrahepatic biliary ductal dilatation. This may represent biliary dyskinesia. Correlation with nuclear medicine HIDA scan may be considered. Marked bladder distention. Chest X-Ray 11/11/23 00:30 IMPRESSION: Low lung volumes with persistent partial collapse of the right lower lobe and linear atelectasis in the left lung base. No new airspace consolidation. Chest X-Ray 11/13/23 08:58 IMPRESSION: 1. Low lung volumes with bibasilar atelectasis and/or pneumonia, left greater than right. 2. No significant change in elevation of the right hemidiaphragm. Chest X-Ray 11/13/23 13:02 IMPRESSION: 1. ET tube terminates 2.5 cm from the timoteo. 2. Patchy airspace opacities in both lungs, left greater than right, concerning for pneumonia or aspiration. Chest X-Ray 11/17/23 18:57 IMPRESSION: Abdominal pulmonary infiltrates are again seen, now moderate in the left upper lobe, with interim increase. Chest X-Ray 11/18/23 08:10 IMPRESSION: 1. Bilateral low lung volumes. 2. Redemonstrated bilateral patchy radiopacities throughout the bilateral lung alberto greatest in the right mid and left upper lung alberto. 3. Trace right pleural effusion. Chest X-Ray 11/20/23 21:20 IMPRESSION: Worsening bilateral airspace opacities. Abdomen/Pelvis CT 11/21/23 14:55 IMPRESSION: 1. Rectosigmoid wall thickening is suspected, with note made that imaging is limited by noncontrast technique and pelvic metallic streak artifact. Please clinically clinically. No obstruction, free intraperitoneal air or abscess is seen. No appendicitis or diverticulitis is seen. There is no significant colonic diverticulosis. 2. There is layering milk of calcium within the gallbladder, without finding to suggest acute cholecystitis. No choledocholithiasis is noted. There is mild intrahepatic biliary ductal dilatation. The common bile duct is again dilated, and there is mild proximal pancreatic ductal dilatation. Again, an occult pancreatic lesion is not excluded, with present evaluation limited by noncontrast technique. 3. No urinary calculus or obstruction is seen. 4. There is no abdominopelvic free fluid or lymphadenopathy. 5. There are degenerative changes of the spine. A right hip arthroplasty is noted. There is no acute or aggressive osseous finding. 6. There are diffuse bibasilar groundglass infiltrates. 7. There is mild anasarca. Fleischner guidelines were followed. Chest CT 11/21/23 14:55 IMPRESSION: 1. There are diffuse bilateral groundglass opacities, likely infectious or inflammatory in etiology. Recommend clinical correlation and follow-up imaging to ensure clearance. 2. There is mild generalized small airway thickening, also likely infectious or inflammatory in etiology. 3. No thoracic lymphadenopathy or pleural effusion is seen. 4. There are degenerative changes of the spine. A small nonspecific sclerotic focus is seen within the sternal body. This is of uncertain etiology and could be more fully evaluated with a nuclear bone scan or MRI clinically indicated (i.e., history of focal pain at this location or known malignancy). Fleischner guidelines were followed. Chest X-Ray 11/29/23 08:20 IMPRESSION: Diffuse bilateral airspace opacities, slightly worse in the left midlung. Chest X-Ray 12/02/23 09:23 IMPRESSION: Low lung volumes and mixed interstitial and alveolar disease, left greater than right. Differential would include pneumonia, interstitial lung disease with acute alveolitis, in particular nonspecific interstitial pneumonitis, and less likely pulmonary edema. Modified Barium Swallow 12/03/23 14:44 IMPRESSION: Laryngeal penetration was seen with nectar thick contrast. Aspiration was seen with thin consistency barium. Refer to the speech therapy report for further clarification This procedure was performed by Osiel Ventura PA-C, and supervised by Dr. Jenkins Chest X-Ray 12/10/23 01:25 IMPRESSION: No significant change in the diffuse interstitial opacities and foci of groundglass attenuation in both lungs. Differential could include pneumonia, acute interstitial pneumonitis, other interstitial lung diseases, and pulmonary edema. Medications Medications Current Medications Acetaminophen (Acetaminophen 325 Mg Tablet) 975 mg PO Q6H PRN PRN Reason: mild pain, headache or fever Last Admin: 12/10/23 08:28 Dose: 975 mg Albuterol Sulfate (Albuterol Sulfate (0.083%) 2.5 Mg/3 Ml Vial.Neb) 2.5 mg INHALE Q4H PRN PRN Reason: Shortness of Breath/Wheezing Last Admin: 12/10/23 01:03 Dose: 2.5 mg Albuterol/Ipratropium (Albuterol/Iprat 2.5/0.5mg 3 Ml Ampul.Neb) 3 ml INHALE RQ4H WHILE AWAKE JESSICA Last Admin: 12/10/23 15:09 Dose: 3 ml Allopurinol (Allopurinol 300 Mg Tablet) 150 mg PO DAILY [facility]ESS[facility] Last Admin: 12/10/23 08:20 Dose: 150 mg Amiodarone HCl (Amiodarone Hcl 200 Mg Tablet) 200 mg PO DAILY [facility] Last Admin: 12/10/23 08:19 Dose: 200 mg Apixaban (Apixaban 5 Mg Tablet) 5 mg PO BID [facility] Last Admin: 12/10/23 08:19 Dose: 5 mg Benzocaine (Throat Lozenge, Medicated Lozenge) 1 lozenge MUCOUS MEM Q2H PRN PRN Reason: Sore Throat Last Admin: 12/02/23 08:29 Dose: 1 lozenge Diltiazem HCl (Diltiazem Hcl Cd 240 Mg Cap.Er.Deg) 240 mg PO DAILY [facility]; Protocol Last Admin: 12/10/23 08:19 Dose: 240 mg Docusate Sodium (Docusate Sodium 100 Mg Capsule) 100 mg PO BID PRN PRN Reason: constipation Last Admin: 12/02/23 13:16 Dose: 100 mg Fluticasone/Vilanterol (Fluticasone/Vilanterol 100/25 Blst.W.Dev) 1 puff INHALE RDAILY [facility] Last Admin: 12/10/23 07:54 Dose: 1 puff Furosemide (Furosemide 40 Mg/4 Ml Vial) 40 mg IVPUSH BID@0630,1800 JESSICA; Protocol Last Admin: 12/10/23 06:28 Dose: 40 mg Glucose (Glucose Gel 15 Gm Gel..Gram.) 15 gm PO Q15M PRN; Protocol PRN Reason: per Hypoglycemia Standing Ord. Guaifenesin (Guaifenesin La 600 Mg Tab.Er.12h) 600 mg PO BID [facility] Last Admin: 12/10/23 08:19 Dose: 600 mg Guaifenesin/Dextromethorphan (Guaifenesin Dm 600/30 1 Tab Tab.Er.12h) 1 tab PO BID [facility] Last Admin: 12/10/23 08:19 Dose: 1 tab Ceftriaxone Sodium 1 gm/ (Sodium Chloride) 50 mls @ 100 mls/hr IV Q24H [facility] Last Infusion: 12/09/23 16:49 Dose: Infused Insulin Glargine (Insulin Glargine,Hum.Rec.Anlog 100 Unit/Ml 10 Ml Vial) 21 unit SUBCUT BEDTIME [facility] Last Admin: 12/09/23 20:33 Dose: 21 unit Insulin Glargine (Insulin Glargine,Hum.Rec.Anlog 100 Unit/Ml 10 Ml Vial) 7 unit SUBCUT DAILY [facility] Last Admin: 12/10/23 08:18 Dose: 7 unit Insulin Human Lispro (Insulin Lispro 100 Unit/Ml 3 Ml Vial) 0 unit SUBCUT QIDACHS [facility]; Protocol Last Admin: 12/10/23 11:42 Dose: 6 unit Lidocaine (Lidocaine 4 % Patch Adh..Patch) 1 patch TRANSDERMA DAILY [facility]; Protocol Last Admin: 12/10/23 08:20 Dose: 1 patch Lorazepam (Lorazepam 2 Mg/Ml Vial) 1 mg IM ONCE PRN PRN Reason: anxiety/restlessness Nicotine (Nicotine 14 Mg Patch.Td24) 14 mg TRANSDERMA DAILY [facility] Last Admin: 12/10/23 08:20 Dose: 14 mg Nystatin (Nystatin Oral Susp 500,000 Unit/5 Ml Oral.Susp) 500,000 unit PO QID [facility]; Protocol Last Admin: 12/10/23 08:19 Dose: 500,000 unit Omeprazole (Omeprazole 20 Mg Capsule.Dr) 20 mg PO BID@0630,1630 [facility] Last Admin: 12/10/23 05:18 Dose: 20 mg Ondansetron HCl (Ondansetron Hcl 4 Mg/2 Ml Vial) 4 mg IVPUSH Q8H PRN PRN Reason: Nausea and Vomiting Last Admin: 11/12/23 20:05 Dose: 4 mg Oxycodone HCl (Oxycodone Hcl Immed Release 5 Mg Tablet) 5 mg PO Q6H PRN PRN Reason: Pain, Severe (Pain Scale 7-10) Last Admin: 12/10/23 11:41 Dose: 5 mg Paroxetine HCl (Paroxetine Hcl 20 Mg Tablet) 20 mg PO DAILY@0900 [facility] Last Admin: 12/10/23 08:19 Dose: 20 mg Prednisone (Prednisone 10 Mg Tablet) 10 mg PO DAILY [facility] Last Admin: 12/10/23 08:46 Dose: 10 mg Sodium Chloride (0.9 % Sodium Chloride Flush 3 Ml Syringe) 3 ml IVFLUSH QSHIFT [facility] Last Admin: 12/10/23 08:21 Dose: 3 ml Allergies Allergies Allergy/AdvReac Type Severity Reaction Status Date / Time aspirin [Aspirin] Allergy Mild NAUSEA Verified 10/30/23 14:44 codeine [Codeine] Allergy Mild VOMITING Verified 10/30/23 14:44 Assessment & Plan Assessment & Plan (1) Opiate dependence: Qualifiers: Substance use status: uncomplicated Qualified Code(s): F11.20 - Opioid dependence, uncomplicated Status: Acute Code(s): F11.20 - Opioid dependence, uncomplicated Assessment and Plan: * patient with chronic back pain and history of opioid pain medications (discontinued due to cocaine use)l * continue taper and space out to every 8 hours for one week then every 12 hours for another week then QD * Patient will likely be unhappy about this as her back pain is chronic and has been unable to find relief--encourage patient to re-engage in care with Pain Management * take home narcan Total time managing care of this patient today ____ minutes. PMFSH Past Medical History Medical History (Updated 12/09/23 @ 10:47 by Rita Mario MD) Atelectasis Bacteremia due to Enterococcus CHF (congestive heart failure) A-fib Diabetes Cough Hypoventilation syndrome Skin cancer of trunk Skin cancer of face COPD (chronic obstructive pulmonary disease) Failed back syndrome Family History Family History Father No problems noted. Mother No problems noted. Daughter Opiate dependence Substance use disorder Family/Other FH: mental illness Mental health disorder Family history: reviewed and not pertinent Surgical History Surgical History History of knee surgery History of shoulder surgery History of ankle surgery History of hip surgery Social History Social History Household Members: None Household Members Other:: daughter Housing: Apartment Do you presently have visiting nurse or other home services: Yes Unable to assess alcohol history related to: Unknown Alcohol intake: never Comment: bilateral wrist restraints for airway safety Patient Tobacco Use Status: Former Tobacco user Tobacco use type: Cigarette e-Cigarette/Vaping Use: Never Used service: No Current occupational status: retired and disabled Cognitive needs: Yes Hearing needs: No Vision needs: Yes
--- NOTE | 2023-12-10 16:33 | MHC.SL.SWA ---
Speech Pathologist Impression: Risk of Aspiration Due to: History of Pneumonia Dysphasia Diet Status: Recommend patient continue on current diet of Chopped/Advanced with NECTAR THICK LIQUIDS ONLY (continue to recommend no supplemental plain water, Patient continues to elect/access water, recommend oral care prior to ingesting water), pills whole in puree. Patient should continue on this diet at next level of care. Liquid Consistency and Strategies for Safe Swallow: Liquid Intake Recommendation: Dresser Thick Liquid Intake Strategies: Small Sips No Straws Solid Food Consistency: Dietary Recommendations: Chopped/Advanced (NDD3) Additional Modifications to Solid Foods: Recommend UPGRADE SOLIDS to CHOPPED/ADVANCED (NDD3) and MAINTAIN NECTAR-THICK LIQUID restrictions. Strict aspiration precautions apply including; out of bed for meals, meds with puree medium, close supervision for overt s/s of aspiration, slow pace, small bites/sips, alternate bites and sips. EQUALIZER OPERATOR will continue to follow. Oral Medication Intake: Whole with Puree Please contact the pharmacy regarding appropriate crushable or liquid drug formulations that are available whenever modified delivery is recommended. Compensatory Strategies and Precautions to be Taken for Safe Swallow: Sitting Upright (90 deg) No Straw Small Bites and Sips Alternate Liquids/Solids Rate of Ingestion Change Avoid Specific Foods Supervision While Eating and Drinking for Safe Swallow: Intermittent Supervision Foods to Avoid: Mixed textures Swallowing Recommended Treatments: Oral Motor Exercises Base of Tongue Exercises Compens. Strategy Educat. Vocal Cord Adduction Exer Recommendation for Speech: Inpatient Speech Therapy Speech Therapy through Rehab Facility Comment: Patient was seen by EQUALIZER OPERATOR at lunch. Patient had eaten some of the food on tray and drank some of the nectar thick milk and coffee. Patient again noted to have water present on table with tray. EQUALIZER OPERATOR commented on this and need for Dresser Thick consistencies only due to documented aspiration on thin liquids, patient protested that MD had told her it was OK for her to have ice chips and sips of water. EQUALIZER OPERATOR recommended at a minimum, she complete oral care before taking any water or ice to reduce known risk. EQUALIZER OPERATOR gathered mouthwash and swabs for patient to used in these contexts, though again, patient is taking risk by drinking water. Patient agreed to complete oral care before taking water. EQUALIZER OPERATOR observed patient taking small sips of nectar thick liquid with good toleration. Recommend Patient continue on diet of Chopped/Advanced with Dresser Thick liquids, pills crushed or whole in puree. Patient should continue on this diet at next level of care. Frequency/Duration: Daily Date Range for Service Req: Timeline to reassess: PRN Beater Lead Clinican/Clinical Fellow: No Supervisory Statement: I have reviewed and agree with the student/clinical fellow's documentation: N/A Speech Language Pathologist: Davida Corcoran M.A., CCC-EQUALIZER OPERATOR
[2023-12-10 17:06] LABS: Glucose, Whole Blood 232 mg/dL (60-115)
[2023-12-10] MEDS: cefTRIAXone sodium 1 GM in 0.9 % Sodium Chloride 50 ML IV (17:49)
[2023-12-10 21:20] LABS: Glucose, Whole Blood 359 mg/dL (60-115)
[2023-12-10] MEDS: Insulin Glargine,Hum.rec.anlog 100 UNIT/ML 10 ML VIAL 21 UNIT SUBCUT (21:48)
[2023-12-11] VITALS (9 sets, daily range): BP systolic 123–147; BP diastolic 63–94; PULSE 66–123; RESP 20–26; TEMP 36.2–36.8; O2SAT 94–100; BMI 33.4
[2023-12-11] MEDS: oxyCODONE HCl Immed Release 5 MG TABLET PO ×4 (00:36→17:39)
[2023-12-11] MEDS: Omeprazole 20 MG CAPSULE.DR PO ×2 (06:24→17:38)
[2023-12-11] MEDS: Furosemide 40 MG/4 ML VIAL IVPUSH ×2 (06:24→17:40)
--- NOTE | 2023-12-11 07:08 | PC.NURSE ---
Patient HR elevated overnight in the 130s non sustaining MD made aware and was not concerned if her HR did not pass 140. This am patient was anxious and very rude and hostile for her pain medication which was given within the proper time frame. RN tried to redirect patient on other ways to manage pain and it was unsuccessful.
[2023-12-11 07:09] LABS: Glucose, Whole Blood 107 mg/dL (60-115)
[2023-12-11] MEDS: Nicotine 14 MG PATCH.TD24 TRANSDERMA (08:34)
[2023-12-11] MEDS: 0.9 % Sodium Chloride Flush 3 ML SYRINGE IVFLUSH ×3 (08:34→21:32)
[2023-12-11] MEDS: Lidocaine 4 % Patch ADH..PATCH 1 PATCH TRANSDERMA (08:37)
[2023-12-11] MEDS: Nystatin Oral Susp 500,000 UNIT/5 ML ORAL.SUSP 500000 UNIT PO ×4 (08:37→21:27)
[2023-12-11] MEDS: Amiodarone HCL 200 MG TABLET PO (08:38)
[2023-12-11] MEDS: guaiFENesin LA 600 MG TAB.ER.12H PO ×2 (08:38→21:27)
[2023-12-11] MEDS: guaiFENesin DM 600/30 1 TAB TAB.ER.12H PO ×2 (08:38→21:27)
[2023-12-11] MEDS: allopurinoL 300 MG TABLET 150 MG PO (08:39)
[2023-12-11] MEDS: predniSONE 10 MG TABLET PO (08:39)
[2023-12-11] MEDS: Apixaban 5 MG TABLET PO ×2 (08:39→21:27)
[2023-12-11] MEDS: dilTIAZem HCL CD 240 MG CAP.ER.DEG PO (08:39)
[2023-12-11] MEDS: PARoxetine HCL 20 MG TABLET PO (08:41)
[2023-12-11] MEDS: Insulin Glargine,Hum.rec.anlog 100 UNIT/ML 10 ML VIAL 7 UNIT SUBCUT (08:41)
--- NOTE | 2023-12-11 11:34 | HO.PM.IMPN ---
Subjective Subjective Date of Service: 12/11/23 Interval History: less anxious and restless this morning refused to be evaluated asking for pain medication Afib rvR, HR in 110-120s no other events Review of Systems Review of Systems: Yes all other systems are reviewed and are negative Physical Exam Vital Signs: Vital Signs: Last Vital Signs Temp 97.8 F 12/11/23 11:27 Pulse 113 H 12/11/23 11:27 Resp 20 12/11/23 11:27 BP 125/74 12/11/23 11:27 Pulse Ox 97 12/11/23 11:27 O2 Del Method Nasal Cannula 12/11/23 11:27 O2 Flow Rate 4 12/11/23 11:27 FiO2 40 12/02/23 04:00 Oxygen Flow Rate 2 11/10/23 07:30 BMI result Body Mass Index 33.4 Const: Other: Constitutional : Awake, interactive, looks more anxious and restless eyes: with mild mydriasis Cardiovascular : irregular irregualr, tachycardia, JVP, trace lower extremity edema Respiratory : fair bilateral air entry, fine basal crackles, wheezes or rhonchi Gastrointestinal: soft, lax, Normal bowel sounds, Non tender Skin : Warm, Dry Neurological : Alert & oriented to self and place, No focal deficit Psych: restless, agitated on occasions Objective Data Active Medications Acetaminophen (Acetaminophen 325 Mg Tablet) 975 mg PO Q6H PRN PRN Reason: mild pain, headache or fever Last Admin: 12/10/23 17:48 Dose: 975 mg Documented By: RONALD Albuterol Sulfate (Albuterol Sulfate (0.083%) 2.5 Mg/3 Ml Vial.Neb) 2.5 mg INHALE Q4H PRN PRN Reason: Shortness of Breath/Wheezing Last Admin: 12/10/23 01:03 Dose: 2.5 mg Documented By: MAGNUS Albuterol/Ipratropium (Albuterol/Iprat 2.5/0.5mg 3 Ml Ampul.Neb) 3 ml INHALE RQ4H WHILE AWAKE [facility] Last Admin: 12/11/23 08:11 Dose: Not Given Documented By: ADEOLA Non-Admin Reason: Patient Refused Allopurinol (Allopurinol 300 Mg Tablet) 150 mg PO DAILY [facility] Last Admin: 12/11/23 08:39 Dose: 150 mg Documented By: IVIS Amiodarone HCl (Amiodarone Hcl 200 Mg Tablet) 200 mg PO DAILY [facility] Last Admin: 12/11/23 08:38 Dose: 200 mg Documented By: IVIS Apixaban (Apixaban 5 Mg Tablet) 5 mg PO BID [facility] Last Admin: 12/11/23 08:39 Dose: 5 mg Documented By: IVIS Benzocaine (Throat Lozenge, Medicated Lozenge) 1 lozenge MUCOUS MEM Q2H PRN PRN Reason: Sore Throat Last Admin: 12/02/23 08:29 Dose: 1 lozenge Documented By: JAMEY Cyclobenzaprine HCl (Cyclobenzaprine Hcl 5 Mg Tablet) 5 mg PO BEDTIME [facility] Diltiazem HCl (Diltiazem Hcl Cd 240 Mg Cap.Er.Deg) 240 mg PO DAILY [facility]; Protocol Last Admin: 12/11/23 08:39 Dose: 240 mg Documented By: IVIS Diltiazem HCl (Diltiazem Hcl 60 Mg Tablet) 60 mg PO QID [facility]; Protocol Docusate Sodium (Docusate Sodium 100 Mg Capsule) 100 mg PO BID PRN PRN Reason: constipation Last Admin: 12/02/23 13:16 Dose: 100 mg Documented By: JAMEY Fluticasone/Vilanterol (Fluticasone/Vilanterol 100/25 Blst.W.Dev) 1 puff INHALE RDAILY [facility] Last Admin: 12/11/23 08:11 Dose: Not Given Documented By: ADEOLA Non-Admin Reason: Patient Refused Furosemide (Furosemide 40 Mg/4 Ml Vial) 40 mg IVPUSH BID@0630,1800 [facility]; Protocol Last Admin: 12/11/23 06:24 Dose: 40 mg Documented By: WILLY Glucose (Glucose Gel 15 Gm Gel..Gram.) 15 gm PO Q15M PRN; Protocol PRN Reason: per Hypoglycemia Standing Ord. Guaifenesin (Guaifenesin La 600 Mg Tab.Er.12h) 600 mg PO BID [facility] Last Admin: 12/11/23 08:38 Dose: 600 mg Documented By: IVIS Guaifenesin/Dextromethorphan (Guaifenesin Dm 600/30 1 Tab Tab.Er.12h) 1 tab PO BID [facility] Last Admin: 12/11/23 08:38 Dose: 1 tab Documented By: IVIS Ceftriaxone Sodium 1 gm/ (Sodium Chloride) 50 mls @ 100 mls/hr IV Q24H [facility] Last Infusion: 12/10/23 18:24 Dose: Infused Documented By: RONALD Insulin Glargine (Insulin Glargine,Hum.Rec.Anlog 100 Unit/Ml 10 Ml Vial) 21 unit SUBCUT BEDTIME [facility] Last Admin: 12/10/23 21:48 Dose: 21 unit Documented By: WILLY Insulin Glargine (Insulin Glargine,Hum.Rec.Anlog 100 Unit/Ml 10 Ml Vial) 7 unit SUBCUT DAILY [facility] Last Admin: 12/11/23 08:41 Dose: 7 unit Documented By: IVIS Insulin Human Lispro (Insulin Lispro 100 Unit/Ml 3 Ml Vial) 0 unit SUBCUT QIDACHS [facility]; Protocol Last Admin: 12/11/23 08:33 Dose: Not Given Documented By: IVIS Non-Admin Reason: No Insulin Coverage Lidocaine (Lidocaine 4 % Patch Adh..Patch) 1 patch TRANSDERMA DAILY [facility]; Protocol Last Admin: 12/11/23 08:37 Dose: 1 patch Documented By: IVIS Lorazepam (Lorazepam 2 Mg/Ml Vial) 1 mg IM ONCE PRN PRN Reason: anxiety/restlessness Nicotine (Nicotine 14 Mg Patch.Td24) 14 mg TRANSDERMA DAILY [facility] Last Admin: 12/11/23 08:34 Dose: 14 mg Documented By: IVIS Nystatin (Nystatin Oral Susp 500,000 Unit/5 Ml Oral.Susp) 500,000 unit PO QID [facility]; Protocol Last Admin: 12/11/23 08:37 Dose: 500,000 unit Documented By: IVIS Omeprazole (Omeprazole 20 Mg Capsule.Dr) 20 mg PO BID@0630,1630 [facility] Last Admin: 12/11/23 06:24 Dose: 20 mg Documented By: WILLY Ondansetron HCl (Ondansetron Hcl 4 Mg/2 Ml Vial) 4 mg IVPUSH Q8H PRN PRN Reason: Nausea and Vomiting Last Admin: 11/12/23 20:05 Dose: 4 mg Documented By: BRAD Oxycodone HCl (Oxycodone Hcl Immed Release 5 Mg Tablet) 5 mg PO Q8H PRN PRN Reason: Pain, Severe (Pain Scale 7-10) Paroxetine HCl (Paroxetine Hcl 20 Mg Tablet) 20 mg PO DAILY@0900 [facility] Last Admin: 12/11/23 08:41 Dose: 20 mg Documented By: IVIS Prednisone (Prednisone 10 Mg Tablet) 10 mg PO DAILY [facility] Last Admin: 12/11/23 08:39 Dose: 10 mg Documented By: IVIS Sodium Chloride (0.9 % Sodium Chloride Flush 3 Ml Syringe) 3 ml IVFLUSH QSHIFT [facility] Last Admin: 12/11/23 08:34 Dose: 3 ml Documented By: IVIS Labs 12/10/23 06:37 12/10/23 06:37 Labs: Laboratory Results - last 24 hr 12/10/23 12/10/23 12/11/23 17:02 21:10 07:05 POC Glucose 232 H 359 H* 107 Assessment and Plan (1) UTI (urinary tract infection): Status: Acute (2) Anxiety with restlessness: Status: Acute (3) Acute hypoxemic respiratory failure: Status: Acute (4) Atrial fibrillation with rapid ventricular response: Status: Acute Plan 78yo F with PAF on apixaban, COPD not on hO2, gout, HF with unknown EF, and DM2. presented with AMS, admitted for hypoxia due to CAP + COPD. developed worsening hypoxia due to aspiration and intubated on 11/13/23 . extubated 11/14/23 and stepped down to telemetry 11/15/23. developed LGIB + CHF/COPD exacerbations. still on HFNC but gradually weaning # E.Coli UTI Ceftriaxone 1gm IV # Restlessness, increase anxiety with Narcotic seeking behaviour insisting on getting IV Morphine to help her pain still refusing to go to SNF on Oxycodone during this hospital stay, continue PRN and decrease to Q8 Addiction team input appreciated Ativan PRN reorientation as needed #AF/RVR give IV Cardizem now Start PO Cardizem QID and hold the long acting one Continue amiodarone, cardizem and eliquis keep on Tele #Acute hypoxic respiratory failure due to acute/chronic HFpEF and acute COPD exacerbation and aspiration pneumonia that required intubation--hypoxia now resolved. #Acute HFpEF--diuressed with IV Lasix and todate negative 18 L, BNP 80, Change to oral Lasix 40 mg bid #COPD exacerbation--Has been on steroid for nearly entire hospital stay. nathan off steroid, presently on 10 mg daily since 12/04. continue bronchodilators by Neb. -Incentive spirometry # Aspiration pneumonia/Enterococcus faecalis bacteremia [positive BCx 10/29, repeat BCx 11/01 and 11/12 negative] azithro 10/30-11/04, vanco 10/30-10/31, ceftriaxone 10/31-11/01, pip-don 11/01- and again 11/12-11/22, dapto 11/06-11/12. 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 #DM2 with steroid-induced hyperglycemia, hyperglycemia overall improved. Continue Lantus at 21 at HS, reduce AM dose to 7, continue sliding scale #hypOkalemia, replaced and resolved. #Hypernatremia-resolved #pancreatic abnormality - CT Abdomen/Pelvis: Abrupt pancreatic size change with atrophy and ductal dilation beyond the neck; extra and intrahepatic biliary dilation up to the ampulla. - MRI: No pancreatic masses; changing pancreatic duct caliber with distal atrophy and ductal tortuosity and dilation, possible stricture. Distended gallbladder with sludge and small stones, common bile duct 1.4 cm with no intraductal defects, moderate intrahepatic biliary ductal dilation possibly due to biliary dyskinesia. - No abdominal pain, normal LFTs. Per GI, no aggressive invasive procedures recommended as the patient is asymptomatic. # moderate protein/oscar malnutrition, supplements #thrmbocytopenia--from acute illness resolved #Gout --Allopurinol #Mood disorder--Paroxetine #Urinary retention 12/04--persistent after multiple straight cath, Zafar and urology consult today Has not been participating in PT, but will need rehab vs nursing home care CODE STATUS: DNR/DNI, confirmed with pt and her daughter and reaffirmed 11/20 DVT PPx; Eliquis reason for continued hospitalization: Restlessness and narcotic withdrawal will need placment. Quality Stroke Does the patient have a stroke diagnosis?: No VTE Prior VTE?: No VTE Risk Level:: Medical - moderate - high VTE Device Contraindication: Treatment Not Indicated VTE Drug Contraindication: N/A - Med Ordered
[2023-12-11 11:35] LABS: Glucose, Whole Blood 207 mg/dL (60-115)
[2023-12-11] MEDS: dilTIAZem HCL 50 MG/10 ML VIAL 10 MG IVPUSH (11:53)
[2023-12-11] MEDS: Insulin Lispro 100 UNIT/ML 3 ML VIAL SUBCUT ×3 (11:54→21:28)
--- NOTE | 2023-12-11 12:26 | PM.UROCN ---
History of Present Illness Consult details Consult date: 12/11/23 Narrative: 78yo F with PAF on apixaban, COPD not on hO2, gout, HF with unknown EF, and DM2. presented with AMS, admitted for hypoxia due to CAP + COPD. developed worsening hypoxia due to aspiration. ICU management. The patient's respiratory status has improved. The patient is poor historian. Called due to urinary retention. Zafar has been removed and she is incontinent of urine with purewick in place. Review of Systems Review of Systems: 10 point ROS negative other than stated in HPI [facility] Past Medical History Medical History Atelectasis Bacteremia due to Enterococcus CHF (congestive heart failure) A-fib Diabetes Cough Hypoventilation syndrome Skin cancer of trunk Skin cancer of face COPD (chronic obstructive pulmonary disease) Failed back syndrome Family History Family History Father No problems noted. Mother No problems noted. Daughter Opiate dependence Substance use disorder Family/Other FH: mental illness Mental health disorder Family history: reviewed and not pertinent Surgical History Surgical History History of knee surgery History of shoulder surgery History of ankle surgery History of hip surgery Social History Social History Household Members: None Household Members Other:: daughter Housing: Apartment Do you presently have visiting nurse or other home services: Yes Unable to assess alcohol history related to: Unknown Alcohol intake: never Comment: bilateral wrist restraints for airway safety Patient Tobacco Use Status: Former Tobacco user Tobacco use type: Cigarette e-Cigarette/Vaping Use: Never Used service: No Current occupational status: retired and disabled Cognitive needs: Yes Hearing needs: No Vision needs: Yes Meds Allergies Allergy/AdvReac Type Severity Reaction Status Date / Time aspirin [Aspirin] Allergy Mild NAUSEA Verified 10/30/23 14:44 codeine [Codeine] Allergy Mild VOMITING Verified 10/30/23 14:44 Active Medications: Current Medications Acetaminophen (Acetaminophen 325 Mg Tablet) 975 mg PO Q6H PRN PRN Reason: mild pain, headache or fever Last Admin: 12/10/23 17:48 Dose: 975 mg Albuterol Sulfate (Albuterol Sulfate (0.083%) 2.5 Mg/3 Ml Vial.Neb) 2.5 mg INHALE Q4H PRN PRN Reason: Shortness of Breath/Wheezing Last Admin: 12/10/23 01:03 Dose: 2.5 mg Albuterol/Ipratropium (Albuterol/Iprat 2.5/0.5mg 3 Ml Ampul.Neb) 3 ml INHALE RQ4H WHILE AWAKE [facility] Last Admin: 12/11/23 08:11 Dose: Not Given Allopurinol (Allopurinol 300 Mg Tablet) 150 mg PO DAILY [facility] Last Admin: 12/11/23 08:39 Dose: 150 mg Amiodarone HCl (Amiodarone Hcl 200 Mg Tablet) 200 mg PO DAILY [facility] Last Admin: 12/11/23 08:38 Dose: 200 mg Apixaban (Apixaban 5 Mg Tablet) 5 mg PO BID [facility] Last Admin: 12/11/23 08:39 Dose: 5 mg Benzocaine (Throat Lozenge, Medicated Lozenge) 1 lozenge MUCOUS MEM Q2H PRN PRN Reason: Sore Throat Last Admin: 12/02/23 08:29 Dose: 1 lozenge Cyclobenzaprine HCl (Cyclobenzaprine Hcl 5 Mg Tablet) 5 mg PO BEDTIME [facility] Diltiazem HCl (Diltiazem Hcl Cd 240 Mg Cap.Er.Deg) 240 mg PO DAILY [facility]; Protocol Last Admin: 12/11/23 08:39 Dose: 240 mg Diltiazem HCl (Diltiazem Hcl 60 Mg Tablet) 60 mg PO QID [facility]; Protocol Docusate Sodium (Docusate Sodium 100 Mg Capsule) 100 mg PO BID PRN PRN Reason: constipation Last Admin: 12/02/23 13:16 Dose: 100 mg Fluticasone/Vilanterol (Fluticasone/Vilanterol 100/25 Blst.W.Dev) 1 puff INHALE RDAILY [facility] Last Admin: 12/11/23 08:11 Dose: Not Given Furosemide (Furosemide 40 Mg/4 Ml Vial) 40 mg IVPUSH BID@0630,1800 [facility]; Protocol Last Admin: 12/11/23 06:24 Dose: 40 mg Glucose (Glucose Gel 15 Gm Gel..Gram.) 15 gm PO Q15M PRN; Protocol PRN Reason: per Hypoglycemia Standing Ord. Guaifenesin (Guaifenesin La 600 Mg Tab.Er.12h) 600 mg PO BID [facility] Last Admin: 12/11/23 08:38 Dose: 600 mg Guaifenesin/Dextromethorphan (Guaifenesin Dm 600/30 1 Tab Tab.Er.12h) 1 tab PO BID [facility] Last Admin: 12/11/23 08:38 Dose: 1 tab Ceftriaxone Sodium 1 gm/ (Sodium Chloride) 50 mls @ 100 mls/hr IV Q24H [facility] Last Infusion: 12/10/23 18:24 Dose: Infused Insulin Glargine (Insulin Glargine,Hum.Rec.Anlog 100 Unit/Ml 10 Ml Vial) 21 unit SUBCUT BEDTIME [facility] Last Admin: 12/10/23 21:48 Dose: 21 unit Insulin Glargine (Insulin Glargine,Hum.Rec.Anlog 100 Unit/Ml 10 Ml Vial) 7 unit SUBCUT DAILY [facility] Last Admin: 12/11/23 08:41 Dose: 7 unit Insulin Human Lispro (Insulin Lispro 100 Unit/Ml 3 Ml Vial) 0 unit SUBCUT QIDACHS [facility]; Protocol Last Admin: 12/11/23 11:54 Dose: 6 unit Lidocaine (Lidocaine 4 % Patch Adh..Patch) 1 patch TRANSDERMA DAILY [facility]; Protocol Last Admin: 12/11/23 08:37 Dose: 1 patch Lorazepam (Lorazepam 2 Mg/Ml Vial) 1 mg IM ONCE PRN PRN Reason: anxiety/restlessness Nicotine (Nicotine 14 Mg Patch.Td24) 14 mg TRANSDERMA DAILY [facility] Last Admin: 12/11/23 08:34 Dose: 14 mg Nystatin (Nystatin Oral Susp 500,000 Unit/5 Ml Oral.Susp) 500,000 unit PO QID [facility]; Protocol Last Admin: 12/11/23 08:37 Dose: 500,000 unit Omeprazole (Omeprazole 20 Mg Capsule.Dr) 20 mg PO BID@0630,1630 [facility] Last Admin: 12/11/23 06:24 Dose: 20 mg Ondansetron HCl (Ondansetron Hcl 4 Mg/2 Ml Vial) 4 mg IVPUSH Q8H PRN PRN Reason: Nausea and Vomiting Last Admin: 11/12/23 20:05 Dose: 4 mg Oxycodone HCl (Oxycodone Hcl Immed Release 5 Mg Tablet) 5 mg PO Q8H PRN PRN Reason: Pain, Severe (Pain Scale 7-10) Paroxetine HCl (Paroxetine Hcl 20 Mg Tablet) 20 mg PO DAILY@0900 [facility] Last Admin: 12/11/23 08:41 Dose: 20 mg Prednisone (Prednisone 10 Mg Tablet) 10 mg PO DAILY [facility] Last Admin: 12/11/23 08:39 Dose: 10 mg Sodium Chloride (0.9 % Sodium Chloride Flush 3 Ml Syringe) 3 ml IVFLUSH QSHIFT [facility] Last Admin: 12/11/23 08:34 Dose: 3 ml Home Medications ?Medication ?Instructions ?Recorded ?Confirmed ?Last Taken ?Type nicotine 14 mg/24 hr daily 1 patch topical DAILY 10/30/23 10/30/23 Unknown History transdermal patch Physical Exam Vital Signs: Vital Signs: Last Vital Signs Temp 97.8 F 12/11/23 11:27 Pulse 113 H 12/11/23 11:27 Resp 20 12/11/23 11:27 BP 125/74 12/11/23 11:27 Pulse Ox 97 12/11/23 11:27 O2 Del Method Nasal Cannula 12/11/23 11:27 O2 Flow Rate 4 12/11/23 11:27 FiO2 40 12/02/23 04:00 Oxygen Flow Rate 2 11/10/23 07:30 BMI result Body Mass Index 33.4 Const: General: healthy appearing and no acute distress Orientation/consciousness: patient oriented x3 HEENT: Head: Yes normal to inspection, Yes normocephalic and Yes atraumatic Eyes: Conjunctivae: conjunctivae normal Neck: Neck: Yes normal visual inspection and Yes trachea midline Chest: Chest palpation & inspection: normal inspection of the chest Resp: Effort & Inspection: normal respiratory effort Cardio: Rate: regular rate GI: Inspection: Yes normal to inspection Palpation (GI): Soft to palpation Neuro: General: patient oriented x3 Psych: Appearance: grossly normal Results Labs 12/12/23 06:33 12/12/23 06:33 Labs: Abnormal lab results 12/10/23 12/10/23 12/11/23 Range/Units 17:02 21:10 11:20 POC Glucose 232 H 359 H* 207 H (60-115) mg/dL Urine 10/30/23 12/08/23 Range/Units 19:28 15:07 Urine Color Yellow Dark Yellow Urine Appearance Clear Turbid Urine pH 7.0 5.5 (5.0-9.0) Ur Specific [place] 1.010 1.020 (1.005-1.025) Urine Protein Negative 100 (2+) H (Neg-Trace) mg/dL Urine Glucose (UA) Negative 500 H (Negative) mg/dL Collected: 12/08/23-UNK Status: COMP Req#: [id number] Received: 12/08/23-1758 Source: Urine Cath Sp Desc: Zafar Cath Subm Dr: Rita Mario MD Ordered: Urine Culture Comments: Nurse says to come back after IV placed LATOUM 1613 Procedure Result Verified Urine Culture Final 12/10/23 Organism 1 Escherichia coli Quant > 100,000 cfu/mL E coli M.I.C. RX --------- --- Ampicillin >=32 R Ceftriaxone <=0.25 S Gentamicin >=16 R Levofloxacin <=0.12 S Nitrofurantoin <=16 S Trimethoprim/Sulfamethoxazole >=[address] scan report/results: report reviewed and image reviewed CT scan - pelvis: report reviewed and image reviewed Additional studies: Date of Service: 11/21/23 EXAMINATION: CT ABDOMEN AND PELVIS WITHOUT CONTRAST CLINICAL INFORMATION: GI bleeding. COMPARISON: CT abdomen and pelvis dated 11/03/2023. TECHNIQUE: Multidetector volumetric imaging was performed from the superior aspect of the liver through the pubic symphysis. Sagittal and coronal reformatted images were obtained on the technologist's workstation. This CT examination was performed using dose optimization techniques as appropriate, variously including the following: *Automated exposure control *Adjustment of mA and/or kV according to patient size (this includes techniques or standardized protocols for targeted exams where dose is matched to indication/reason for exam; i.e. extremities or head) *Use of iterative reconstruction technique DLP: 1114 mGy-cm FINDINGS: LUNG BASES: There are diffuse bibasilar groundglass infiltrates. LIVER, GALLBLADDER, AND BILIARY TREE: The liver is normal in size, shape, and attenuation. No focal hepatic lesion is seen. Mild biliary ductal dilatation is present. The gallbladder is distended and contains layering milk of calcium. There is no gallbladder wall thickening or obvious pericholecystic inflammatory change. The common bile duct is dilated to 1.3 cm (6:84). No focal choledocholith is seen. PANCREAS: The pancreas is again atrophic. There is mild proximal pancreatic ductal dilatation to 4 mm. No definite mass is appreciated, with evaluation limited by noncontrast technique. SPLEEN: Unremarkable. ADRENAL GLANDS: Unremarkable. KIDNEYS AND URETERS: The kidneys are normal in size, shape, and attenuation. No hydronephrosis, hydroureter, or calculi seen. No perinephric stranding. BLADDER: Unremarkable. GASTROINTESTINAL TRACT: Rectosigmoid wall thickening is suspected, with imaging limited by noncontrast technique. No obstruction, free intraperitoneal air or abscess is seen. There is no focal bowel wall thickening. No significant diverticulosis or diverticulitis is seen. The vermiform appendix is unremarkable. ABDOMINAL WALL: There is a diastases rectus. There is a very small fat-containing umbilical hernia. There is mild anasarca. LYMPH NODES: Normal. VASCULAR: There is moderate aortoiliac atherosclerotic calcification. No abdominal aortic aneurysm is seen. PELVIC VISCERA: Surgically absent. OSSEOUS STRUCTURES: There is a right hip arthroplasty with secondary metallic streak artifact. There are degenerative changes of the thoracolumbar spine. No acute or aggressive osseous finding is noted. IMPRESSION: 1. Rectosigmoid wall thickening is suspected, with note made that imaging is limited by noncontrast technique and pelvic metallic streak artifact. Please clinically clinically. No obstruction, free intraperitoneal air or abscess is seen. No appendicitis or diverticulitis is seen. There is no significant colonic diverticulosis. 2. There is layering milk of calcium within the gallbladder, without finding to suggest acute cholecystitis. No choledocholithiasis is noted. There is mild intrahepatic biliary ductal dilatation. The common bile duct is again dilated, and there is mild proximal pancreatic ductal dilatation. Again, an occult pancreatic lesion is not excluded, with present evaluation limited by noncontrast technique. 3. No urinary calculus or obstruction is seen. 4. There is no abdominopelvic free fluid or lymphadenopathy. 5. There are degenerative changes of the spine. A right hip arthroplasty is noted. There is no acute or aggressive osseous finding. 6. There are diffuse bibasilar groundglass infiltrates. 7. There is mild anasarca. Assessment and Plan (1) Catheter-associated urinary tract infection: Status: Acute (2) Functional urinary incontinence: Status: Acute (3) Urinary incontinence: Status: Acute Procedures Date of Service Date of Service: 12/12/23
[2023-12-11] MEDS: Albuterol/Iprat 2.5/0.5MG 3 ML AMPUL.NEB INHALE ×3 (13:01→19:38)
--- NOTE | 2023-12-11 14:16 | MHC.SPEECHCO ---
Pt resting x2 and with breathing treatment when attempted today. Per RN, Pt is hyperfocussed on a change to her pain medication regimen. Is not asking for Thin Liquids as much today. Pt has been stable on her recommended diet of Chopped/Advanced Solids (NDD3) and [place]-Thick Liquids. [employer] will follow-up x1 to reinforce findings from [facility]SS.
[2023-12-11] MEDS: dilTIAZem HCL 60 MG TABLET PO ×3 (14:58→21:32)
[2023-12-11] MEDS: cefTRIAXone sodium 1 GM in 0.9 % Sodium Chloride 50 ML IV (14:58)
[2023-12-11 17:31] LABS: Glucose, Whole Blood 192 mg/dL (60-115)
[2023-12-11 21:19] LABS: Glucose, Whole Blood 302 mg/dL (60-115)
[2023-12-11] MEDS: Cyclobenzaprine HCl 5 MG TABLET PO (21:27)
[2023-12-11] MEDS: Insulin Glargine,Hum.rec.anlog 100 UNIT/ML 10 ML VIAL 21 UNIT SUBCUT (21:27)
[2023-12-12] VITALS (14 sets, daily range): BP systolic 126–145; BP diastolic 59–74; PULSE 62–130; RESP 18–26; TEMP 36.2–36.8; O2SAT 92–98; BMI 33.3
[2023-12-12] MEDS: Acetaminophen 325 MG TABLET 975 MG PO (01:06)
[2023-12-12] MEDS: oxyCODONE HCl Immed Release 5 MG TABLET PO ×4 (01:07→23:25)
[2023-12-12] MEDS: Furosemide 40 MG/4 ML VIAL IVPUSH ×2 (05:49→18:02)
[2023-12-12] MEDS: Omeprazole 20 MG CAPSULE.DR PO ×2 (05:49→16:08)
[2023-12-12 07:01] LABS: Hematocrit 29.8 % (37.0-47.0); Hemoglobin 9.3 g/dl (12.0-16.0); Mean Corpuscular HGB Conc 31.2 g/dl (31.0-35.0); Mean Corpuscular Hemoglobin 30.6 pg (27.0-33.0); Mean Platelet Volume 11.2 fL (9.4-12.3); Platelet Count 154 X10*3/uL (160-400); Red Blood Count 3.04 X10*6/uL (4.20-5.50); Red Cell Distribution Width 19.3 % (11.0-16.0); White Blood Count 8.4 X10*3/uL (4.8-10.8)
[2023-12-12 07:13] LABS: Anion Gap 14 (12-20); Blood Urea Nitrogen 26 mg/dL (9-16); Calcium 9.3 mg/dL (8.4-10.2); Carbon Dioxide 33 mmol/L (22-29); Chloride 97 mmol/L (96-108); Estimated Glomerular Filt Rate > 60; Glucose Random 174 mg/dL (60-115); Potassium 3.6 mmol/L (3.3-5.1); Sodium 140 mmol/L (135-145)
[2023-12-12 07:21] LABS: Glucose, Whole Blood 171 mg/dL (60-115)
[2023-12-12] MEDS: Fluticasone/Vilanterol 100/25 BLST.W.DEV 1 PUFF INHALE (07:45)
[2023-12-12] MEDS: Albuterol/Iprat 2.5/0.5MG 3 ML AMPUL.NEB INHALE (07:45)
[2023-12-12] MEDS: Nicotine 14 MG PATCH.TD24 TRANSDERMA (08:14)
[2023-12-12] MEDS: Lidocaine 4 % Patch ADH..PATCH 1 PATCH TRANSDERMA (08:17)
[2023-12-12] MEDS: Insulin Glargine,Hum.rec.anlog 100 UNIT/ML 10 ML VIAL 7 UNIT SUBCUT (08:18)
[2023-12-12] MEDS: Insulin Lispro 100 UNIT/ML 3 ML VIAL SUBCUT ×4 (08:19→21:50)
[2023-12-12] MEDS: guaiFENesin DM 600/30 1 TAB TAB.ER.12H PO ×2 (08:21→21:36)
[2023-12-12] MEDS: dilTIAZem HCL 60 MG TABLET PO (08:23)
[2023-12-12] MEDS: guaiFENesin LA 600 MG TAB.ER.12H PO ×2 (08:23→21:34)
[2023-12-12] MEDS: Apixaban 5 MG TABLET PO ×2 (08:23→21:35)
[2023-12-12] MEDS: allopurinoL 300 MG TABLET 150 MG PO (08:24)
[2023-12-12] MEDS: PARoxetine HCL 20 MG TABLET PO (08:25)
[2023-12-12] MEDS: Amiodarone HCL 200 MG TABLET PO (08:26)
[2023-12-12] MEDS: Nystatin Oral Susp 500,000 UNIT/5 ML ORAL.SUSP 500000 UNIT PO ×4 (08:26→21:36)
--- NOTE | 2023-12-12 09:37 | MHC.CM.PN ---
EMR REVIEWED, PT REMIAN ON IV LASIX BID, IV ABX FOR UTI AND PREDNISONE INCREASED TO 40MG, PT NOT MEDICALLY CLEARED FOR DC, CM WILL CONT TO FOLLOW DC NEEDS.
[2023-12-12] MEDS: dilTIAZem HCL 50 MG/10 ML VIAL 10 MG IVPUSH (09:50)
[2023-12-12] MEDS: predniSONE 20 MG TABLET 40 MG PO (09:52)
[2023-12-12] MEDS: dilTIAZem HCL 30 MG TABLET PO (09:52)
[2023-12-12] MEDS: 0.9 % Sodium Chloride Flush 3 ML SYRINGE IVFLUSH ×3 (09:52→21:36)
[2023-12-12 10:56] LABS: Glucose, Whole Blood 162 mg/dL (60-115)
--- NOTE | 2023-12-12 10:56 | PM.PNCARD ---
Subjective Subjective Date of Service: 12/12/23 Interval history: We were asked to see as she is again having some atrial arrhythmias. Patient herself seems just about the same as before. She is resting in bed. She states she is no different from prior. Denies any chest pain. Review of Systems Review of Systems Yes all other systems are reviewed and are negative Constitutional: Reports as per HPI and Reports no additional constitutional complaints Eyes: Reports as per HPI and Denies no additional eye complaints Denies system reviewed and no additional complaints, except as documented and Reports as per HPI Cardiovascular: Reports as per HPI, Reports no additional cardiovascular complaints, Denies acrocyanosis, Denies cool extremities, Denies chest pain, Denies leg edema, Denies lightheadedness, Denies palpitations and Denies dyspnea Respiratory: Reports as per HPI, Denies no additional respiratory complaints and Denies dyspnea Gastrointestinal: Reports as per HPI and Denies no additional gastrointestinal complaints Genitourinary: Reports as per HPI Musculoskeletal: Reports no additional musculoskeletal complaints and Reports as per HPI Skin/Breast: Reports system reviewed and no additional complaints, except as docu Reports system reviewed and no additional complaints, except as documented and Reports as per HPI Psychiatric: Reports no additional psychiatric complaints and Reports as per HPI Endocrine: Reports no additional endocrine complaints, Reports as per HPI and Denies palpitations Hematologic/Lymphatic: Reports no additional hematologic/lymphatic complaints and Reports as per HPI Allergic/Immunologic: Reports no additional allergic/immunologic complaints and Reports as per HPI Physical Exam Vital Signs: Last Vital Signs Temp 97.5 F 12/12/23 07:51 Pulse 104 H 12/12/23 07:51 Resp 18 12/12/23 07:51 BP 139/62 12/12/23 07:51 Pulse Ox 92 12/12/23 07:51 O2 Del Method Nasal Cannula 12/12/23 07:51 O2 Flow Rate 4 12/12/23 07:51 FiO2 40 12/02/23 04:00 Oxygen Flow Rate 2 11/10/23 07:30 BMI result Body Mass Index 33.3 Const General: ill appearing and tired appearing HEENT Other: Unremarkable Head: Yes normal to inspection Neck Neck: Yes normal visual inspection Chest Chest palpation & inspection: normal inspection of the chest Resp Auscultation: rhonchi, wheezes and diminished lung sounds Cardio Palpation: normal PMI Heart sounds: S1 normal heart sound present, S2 normal heart sound present, no gallops, no murmurs and no rubs GI Palpation (GI): Soft to palpation Back/Spine/Pelvis Other: unremarkable Skin General skin exam: no rashes or lesions noted Extrem General: Yes normal to inspection Psych Mental Status: mental status grossly normal Objective Labs and Meds 12/12/23 06:33 12/12/23 06:33 Lab results: Laboratory Results - last 24 hr 12/11/23 12/11/23 12/11/23 11:20 17:27 21:15 WBC RBC Hgb Hct MCV MCH MCHC RDW Plt Count MPV Absolute Nucleated RBC Nucleated RBC % (auto) Sodium Potassium Chloride Carbon Dioxide Anion Gap BUN Creatinine Estim Creat Clear Calc Estimated GFR POC Glucose 207 H 192 H 302 H Random Glucose Calcium 12/12/23 12/12/23 12/12/23 06:33 07:14 10:47 WBC 8.4 RBC 3.04 L Hgb 9.3 L Hct 29.8 L MCV 98.0 MCH 30.6 MCHC 31.2 RDW 19.3 H Plt Count 154 L MPV 11.2 Absolute Nucleated RBC 0.000 Nucleated RBC % (auto) 0.0 Sodium 140 Potassium 3.6 Chloride 97 Carbon Dioxide 33 H Anion Gap 14 BUN 26 H Creatinine 0.59 Estim Creat Clear Calc 83.0 Estimated GFR > 60 POC Glucose 171 H 162 H Random Glucose 174 H Calcium 9.3 Progress Note: A&P Assessment and plan (1) Multifocal atrial tachycardia: Status: Acute (2) Atrial fibrillation with rapid ventricular response: Status: Acute (3) Acute hypoxemic respiratory failure: Status: Acute Plan Telemetry strips reviewed. There are clearly P waves seen intermittently and even elsewhere during the tachyarrhythmia. More than likely it is all atrial tachycardia related to underlying lung disease. Clinically, she still sounds very wheezy. She is already on good regimen including amiodarone and diltiazem. Unlikely that the cardiac arrhythmias will improve with the lung status. She is not suitable for any other therapies like AV demi ablation considering the overall risks. Goals of care will need to be decided. Discussed with Dr. Mario. Time Spent With Patient Time: Total time managing care of this patient today ____ minutes. Progress Note: Quality Stroke Does the patient have a stroke diagnosis?: No Procedures Date of Service Date of Service: 12/12/23
[2023-12-12] MEDS: dilTIAZem HCL 30 MG TABLET 90 MG PO ×3 (12:19→21:35)
--- NOTE | 2023-12-12 12:58 | P.PNIM_ITS ---
Subjective Subjective Date of Service: 12/12/23 Interval History: Laying comfortable in her bed gets easily anxious and starts complaining of pain Afib rvR, HR in 110-120s no other events Review of Systems Review of Systems: Yes all other systems are reviewed and are negative Physical Exam 2 Vital Signs: Vital Signs: Last Vital Signs Temp 97.2 F 12/12/23 11:13 Pulse 117 H 12/12/23 11:13 Resp 18 12/12/23 11:13 BP 131/74 12/12/23 11:13 Pulse Ox 97 12/12/23 11:13 O2 Del Method Nasal Cannula 12/12/23 11:13 O2 Flow Rate 4 12/12/23 11:13 FiO2 40 12/02/23 04:00 Oxygen Flow Rate 2 11/10/23 07:30 BMI result Body Mass Index 33.3 Const: Other: Constitutional : Awake, interactive, looks more anxious and restless eyes: with mild mydriasis Cardiovascular : irregular irregualr, tachycardia, JVP, trace lower extremity edema Respiratory : fair bilateral air entry, fine basal crackles, wheezes or rhonchi Gastrointestinal: soft, lax, Normal bowel sounds, Non tender Skin : Warm, Dry Neurological : Alert & oriented to self and place, No focal deficit Psych: restless, agitated on occasions Objective Data Active Medications Acetaminophen (Acetaminophen 325 Mg Tablet) 975 mg PO Q6H PRN PRN Reason: mild pain, headache or fever Last Admin: 12/12/23 01:06 Dose: 975 mg Documented By: KAMILA Albuterol Sulfate (Albuterol Sulfate (0.083%) 2.5 Mg/3 Ml Vial.Neb) 2.5 mg INHALE Q4H PRN PRN Reason: Shortness of Breath/Wheezing Last Admin: 12/10/23 01:03 Dose: 2.5 mg Documented By: MAGNUS Allopurinol (Allopurinol 300 Mg Tablet) 150 mg PO DAILY [facility] Last Admin: 12/12/23 08:24 Dose: 150 mg Documented By: IVIS Amiodarone HCl (Amiodarone Hcl 200 Mg Tablet) 200 mg PO DAILY [facility] Last Admin: 12/12/23 08:26 Dose: 200 mg Documented By: IVIS Apixaban (Apixaban 5 Mg Tablet) 5 mg PO BID [facility] Last Admin: 12/12/23 08:23 Dose: 5 mg Documented By: IVIS Benzocaine (Throat Lozenge, Medicated Lozenge) 1 lozenge MUCOUS MEM Q2H PRN PRN Reason: Sore Throat Last Admin: 12/02/23 08:29 Dose: 1 lozenge Documented By: JAMEY Cyclobenzaprine HCl (Cyclobenzaprine Hcl 5 Mg Tablet) 5 mg PO BEDTIME [facility] Last Admin: 12/11/23 21:27 Dose: 5 mg Documented By: KAMILA Diltiazem HCl (Diltiazem Hcl Cd 240 Mg Cap.Er.Deg) 240 mg PO DAILY [facility]; Protocol Last Admin: 12/11/23 08:39 Dose: 240 mg Documented By: IVIS Diltiazem HCl (Diltiazem Hcl 30 Mg Tablet) 90 mg PO QID [facility]; Protocol Last Admin: 12/12/23 12:19 Dose: 90 mg Documented By: IVIS Docusate Sodium (Docusate Sodium 100 Mg Capsule) 100 mg PO BID PRN PRN Reason: constipation Last Admin: 12/02/23 13:16 Dose: 100 mg Documented By: JAMEY Fluticasone/Vilanterol (Fluticasone/Vilanterol 100/25 Blst.W.Dev) 1 puff INHALE RDAILY [facility] Last Admin: 12/12/23 07:45 Dose: 1 puff Documented By: ANCELMO Furosemide (Furosemide 40 Mg/4 Ml Vial) 40 mg IVPUSH BID@0630,1800 [facility]; Protocol Last Admin: 12/12/23 05:49 Dose: 40 mg Documented By: KAMILA Glucose (Glucose Gel 15 Gm Gel..Gram.) 15 gm PO Q15M PRN; Protocol PRN Reason: per Hypoglycemia Standing Ord. Guaifenesin (Guaifenesin La 600 Mg Tab.Er.12h) 600 mg PO BID [facility] Last Admin: 12/12/23 08:23 Dose: 600 mg Documented By: IVIS Guaifenesin/Dextromethorphan (Guaifenesin Dm 600/30 1 Tab Tab.Er.12h) 1 tab PO BID [facility] Last Admin: 12/12/23 08:21 Dose: 1 tab Documented By: IVIS Ceftriaxone Sodium 1 gm/ (Sodium Chloride) 50 mls @ 100 mls/hr IV Q24H [facility] Last Infusion: 12/11/23 16:57 Dose: Infused Documented By: IVIS Insulin Glargine (Insulin Glargine,Hum.Rec.Anlog 100 Unit/Ml 10 Ml Vial) 21 unit SUBCUT BEDTIME [facility] Last Admin: 12/11/23 21:27 Dose: 21 unit Documented By: KAMILA Insulin Glargine (Insulin Glargine,Hum.Rec.Anlog 100 Unit/Ml 10 Ml Vial) 7 unit SUBCUT DAILY [facility] Last Admin: 12/12/23 08:18 Dose: 7 unit Documented By: IVIS Insulin Human Lispro (Insulin Lispro 100 Unit/Ml 3 Ml Vial) 0 unit SUBCUT QIDACHS [facility]; Protocol Last Admin: 12/12/23 12:18 Dose: 4 unit Documented By: IVIS Ipratropium [place] (Ipratropium [place] 0.5 Mg/2.5 Ml Solution) 0.5 mg INHALE RQ4H WHILE AWAKE [facility] Last Admin: 12/12/23 11:35 Dose: Not Given Documented By: ANCELMO Non-Admin Reason: Patient Refused Levalbuterol HCl (Levalbuterol Hcl 1.25 Mg/3 Ml Vial.Neb) 1.25 mg INHALE RTID [facility] Last Admin: 12/12/23 08:19 Dose: Not Given Documented By: MIKAYLA Non-Admin Reason: Previously Administered Lidocaine (Lidocaine 4 % Patch Adh..Patch) 1 patch TRANSDERMA DAILY [facility]; Protocol Last Admin: 12/12/23 08:17 Dose: 1 patch Documented By: IVIS Lorazepam (Lorazepam 2 Mg/Ml Vial) 1 mg IM ONCE PRN PRN Reason: anxiety/restlessness Nicotine (Nicotine 14 Mg Patch.Td24) 14 mg TRANSDERMA DAILY [facility] Last Admin: 12/12/23 08:14 Dose: 14 mg Documented By: IVIS Nystatin (Nystatin Oral Susp 500,000 Unit/5 Ml Oral.Susp) 500,000 unit PO QID [facility]; Protocol Last Admin: 12/12/23 12:19 Dose: 500,000 unit Documented By: IVIS Omeprazole (Omeprazole 20 Mg Capsule.Dr) 20 mg PO BID@0630,1630 [facility] Last Admin: 12/12/23 05:49 Dose: 20 mg Documented By: KAMILA Ondansetron HCl (Ondansetron Hcl 4 Mg/2 Ml Vial) 4 mg IVPUSH Q8H PRN PRN Reason: Nausea and Vomiting Last Admin: 11/12/23 20:05 Dose: 4 mg Documented By: TRUDY-RIVLA Oxycodone HCl (Oxycodone Hcl Immed Release 5 Mg Tablet) 5 mg PO Q8H PRN PRN Reason: Pain, Severe (Pain Scale 7-10) Last Admin: 12/12/23 08:22 Dose: 5 mg Documented By: IVIS Paroxetine HCl (Paroxetine Hcl 20 Mg Tablet) 20 mg PO DAILY@0900 [facility] Last Admin: 12/12/23 08:25 Dose: 20 mg Documented By: IVIS Prednisone (Prednisone 20 Mg Tablet) 40 mg PO DAILY [facility] Last Admin: 12/12/23 09:52 Dose: 40 mg Documented By: IVIS Sodium Chloride (0.9 % Sodium Chloride Flush 3 Ml Syringe) 3 ml IVFLUSH QSHIFT [facility] Last Admin: 12/12/23 09:52 Dose: 3 ml Documented By: IVIS Labs 12/12/23 06:33 12/12/23 06:33 Labs: Laboratory Results - last 24 hr 12/11/23 12/11/23 12/12/23 17:27 21:15 06:33 MCV 98.0 MCH 30.6 MCHC 31.2 RDW 19.3 H Plt Count 154 L MPV 11.2 Absolute Nucleated RBC 0.000 Nucleated RBC % (auto) 0.0 Anion Gap 14 Estim Creat Clear Calc 83.0 Estimated GFR > 60 POC Glucose 192 H 302 H Random Glucose 174 H Calcium 9.3 12/12/23 12/12/23 07:14 10:47 MCV MCH MCHC RDW Plt Count MPV Absolute Nucleated RBC Nucleated RBC % (auto) Anion Gap Estim Creat Clear Calc Estimated GFR POC Glucose 171 H 162 H Random Glucose Calcium Assessment and Plan (1) Functional urinary incontinence: Status: Acute (2) Catheter-associated urinary tract infection: Status: Acute (3) Anxiety with restlessness: Status: Acute (4) Pulmonary edema: Status: Acute (5) Multifocal atrial tachycardia: Status: Acute (6) Atrial fibrillation with rapid ventricular response: Status: Acute Plan 78yo F with PAF on apixaban, COPD not on hO2, gout, HF with unknown EF, and DM2. presented with AMS, admitted for hypoxia due to CAP + COPD. developed worsening hypoxia due to aspiration and intubated on 11/13/23 . extubated 11/14/23 and stepped down to telemetry 11/15/23. developed LGIB + CHF/COPD exacerbations. still on HFNC but gradually weaning # E.Coli UTI leukocytosis resolved Ceftriaxone 1gm IV (12/07) # Restlessness, increase anxiety with Narcotic seeking behaviour IV Morphine discontinued, last dose 12/08 on Oxycodone during this hospital stay, continue PRN and decrease to Q8 Addiction team input appreciated Ativan PRN reorientation as needed #AFib RVR She keeps getting in and out of Afib rvr to sinus w MATs as P-waves can be seen on Tele give IV Cardizem prn Increase PO Cardizem QID to 90mg and hold the long acting one Continue amiodarone and eliquis changes nebs to Xopenex keep on Tele Cardiology suggests palliative care if can not control as ablation is the treatment to go #Acute hypoxic respiratory failure due to acute/chronic HFpEF and acute COPD exacerbation and aspiration pneumonia that required intubation--hypoxia now resolved. #Acute HFpEF--diuressed with IV Lasix and todate negative 18 L, BNP 80, Change to oral Lasix 40 mg bid #COPD exacerbation--Has been on steroid for nearly entire hospital stay. nathan off steroid, presently on 10 mg daily since 12/04. continue bronchodilators by Neb. -Incentive spirometry # Aspiration pneumonia/Enterococcus faecalis bacteremia [positive BCx 10/29, repeat BCx 11/01 and 11/12 negative] azithro 10/30-11/04, vanco 10/30-10/31, ceftriaxone 10/31-11/01, pip-don 11/01- and again 11/12-11/22, dapto 11/06-11/12. Total 21d antibiotics from 11/01 completed per ID recommendation #Dysphagia--MBS 12/02 silent aspiration..WINCH TRUCK OPERATOR rec NDD3, [place] thick liquid, meds whole with puree #ABLA d/t LGIB, resolved. #DM2 with steroid-induced hyperglycemia, hyperglycemia overall improved. Continue Lantus at 21 at HS, reduce AM dose to 7, continue sliding scale #hypOkalemia, replaced and resolved. #Hypernatremia-resolved #pancreatic abnormality - CT Abdomen/Pelvis: Abrupt pancreatic size change with atrophy and ductal dilation beyond the neck; extra and intrahepatic biliary dilation up to the ampulla. - MRI: No pancreatic masses; changing pancreatic duct caliber with distal atrophy and ductal tortuosity and dilation, possible stricture. Distended gallbladder with sludge and small stones, common bile duct 1.4 cm with no intraductal defects, moderate intrahepatic biliary ductal dilation possibly due to biliary dyskinesia. - No abdominal pain, normal LFTs. Per GI, no aggressive invasive procedures recommended as the patient is asymptomatic. # moderate protein/oscar malnutrition, supplements #thrmbocytopenia--from acute illness resolved #Gout --Allopurinol #Mood disorder--Paroxetine #Urinary retention 12/04--persistent after multiple straight cath, Zafar and urology consult today Has not been participating in PT, but will need rehab vs care home care CODE STATUS: DNR/DNI, confirmed with pt and her daughter and reaffirmed 11/20 DVT PPx; Eliquis reason for continued hospitalization: Restlessness and narcotic withdrawal will need placment. Quality Stroke Does the patient have a stroke diagnosis?: No VTE Prior VTE?: No VTE Risk Level:: Medical - moderate - high VTE Device Contraindication: Treatment Not Indicated VTE Drug Contraindication: N/A - Med Ordered
[2023-12-12] MEDS: levalbuterol HCL 1.25 MG/3 ML VIAL.NEB INHALE ×2 (14:33→19:21)
[2023-12-12] MEDS: Ipratropium Bromide 0.5 MG/2.5 ML SOLUTION INHALE ×2 (14:41→19:21)
[2023-12-12] MEDS: cefTRIAXone sodium 1 GM in 0.9 % Sodium Chloride 50 ML IV (16:11)
[2023-12-12 16:26] LABS: Glucose, Whole Blood 405 mg/dL (60-115)
--- NOTE | 2023-12-12 16:55 | MHC.SLORD ---
Speech Language Pathology Order Status: Pt seen by GROCERY CLERK MARKING to provide further education regarding diet recommendations following 12/02 MBSS: nectar thick liquids and chopped/advanced solids. Pt again had thin water in cup and in pitcher at bedside on this date. Pt told this GROCERY CLERK MARKING that she was told she no longer needed to have nectar thick liquids. GROCERY CLERK MARKING attempted to provide education on nectar thick recommendation given aspiration on thin liquids. Pt grew increasingly upset, particularly when she noticed water jug was missing from her tray. GROCERY CLERK MARKING sent [place] to RNs and MD. MD had conversation w/ pt. MD recommending pt is to continue w/ nectar thick liquids. GROCERY CLERK MARKING to recommend continued dysphasia tx at next level of care.
[2023-12-12 20:43] LABS: Glucose, Whole Blood 483 mg/dL (60-115)
[2023-12-12] MEDS: Cyclobenzaprine HCl 5 MG TABLET PO (21:34)
[2023-12-12] MEDS: Insulin Glargine,Hum.rec.anlog 100 UNIT/ML 10 ML VIAL 21 UNIT SUBCUT (21:49)
[2023-12-12] MEDS: Insulin Regular, Human 100 UNIT/ML 10 ML VIAL IVPUSH (22:35)
[2023-12-12 23:23] LABS: Glucose, Whole Blood 303 mg/dL (60-115)
[2023-12-13] VITALS (14 sets, daily range): BP systolic 108–149; BP diastolic 57–91; PULSE 76–134; RESP 20–26; TEMP 36.2–37.1; O2SAT 2–97; BMI 33.0
[2023-12-13] MEDS: Omeprazole 20 MG CAPSULE.DR PO ×2 (05:20→16:00)
[2023-12-13] MEDS: Furosemide 40 MG/4 ML VIAL IVPUSH (05:20)
[2023-12-13] MEDS: levalbuterol HCL 1.25 MG/3 ML VIAL.NEB INHALE ×3 (07:31→18:42)
[2023-12-13] MEDS: Fluticasone/Vilanterol 100/25 BLST.W.DEV 1 PUFF INHALE (07:32)
[2023-12-13] MEDS: Ipratropium Bromide 0.5 MG/2.5 ML SOLUTION INHALE ×4 (07:32→18:41)
[2023-12-13 07:33] LABS: Glucose, Whole Blood 233 mg/dL (60-115)
[2023-12-13] MEDS: allopurinoL 300 MG TABLET 150 MG PO (07:44)
[2023-12-13] MEDS: predniSONE 20 MG TABLET 40 MG PO (07:44)
[2023-12-13] MEDS: Amiodarone HCL 200 MG TABLET PO (07:44)
[2023-12-13] MEDS: dilTIAZem HCL 30 MG TABLET 90 MG PO ×4 (07:44→21:49)
[2023-12-13] MEDS: guaiFENesin LA 600 MG TAB.ER.12H PO ×2 (07:44→21:56)
[2023-12-13] MEDS: 0.9 % Sodium Chloride Flush 3 ML SYRINGE IVFLUSH ×3 (07:45→21:58)
[2023-12-13] MEDS: oxyCODONE HCl Immed Release 5 MG TABLET PO ×3 (07:45→23:49)
[2023-12-13] MEDS: guaiFENesin DM 600/30 1 TAB TAB.ER.12H PO ×2 (07:45→21:56)
[2023-12-13] MEDS: Nicotine 14 MG PATCH.TD24 TRANSDERMA (07:45)
[2023-12-13] MEDS: PARoxetine HCL 20 MG TABLET PO (07:45)
[2023-12-13] MEDS: Apixaban 5 MG TABLET PO ×2 (07:45→21:57)
[2023-12-13] MEDS: Nystatin Oral Susp 500,000 UNIT/5 ML ORAL.SUSP 500000 UNIT PO ×4 (07:46→21:58)
[2023-12-13] MEDS: Lidocaine 4 % Patch ADH..PATCH 1 PATCH TRANSDERMA (07:46)
[2023-12-13] MEDS: Insulin Glargine,Hum.rec.anlog 100 UNIT/ML 10 ML VIAL 7 UNIT SUBCUT (07:46)
[2023-12-13] MEDS: Insulin Lispro 100 UNIT/ML 3 ML VIAL SUBCUT ×4 (07:46→21:57)
[2023-12-13 09:05] LABS: Hematocrit 32.6 % (37.0-47.0); Hemoglobin 10.4 g/dl (12.0-16.0); Mean Corpuscular HGB Conc 31.9 g/dl (31.0-35.0); Mean Platelet Volume 10.6 fL (9.4-12.3); Platelet Count 177 X10*3/uL (160-400); Red Blood Count 3.36 X10*6/uL (4.20-5.50); Red Cell Distribution Width 19.2 % (11.0-16.0)
--- NOTE | 2023-12-13 10:08 | MHC.SLORD ---
Speech Language Pathology Order Status: DRUG SAFETY COORDINATOR attempted to see patient this morning for continued patient education and dysphagia treatment. Patient expressing she is upset about her diet and says she was told by a doctor she is cleared to have thin liquids. DRUG SAFETY COORDINATOR attempted to have conversation about MBSS findings and patient's condition. Patient got increasingly upset and refused to engage with clinician, shouting, I'm done talking about this! Go! Dr. Mario had discussion with patient yesterday in regards to her MBSS showing silent aspiration and subsequent recommendation for a modified diet (NDD3 & NTL). Patient would benefit from continued dysphagia tx at next level of care, however, compliance to recommendations appears unlikely at this point.
--- NOTE | 2023-12-13 10:16 | MHC.SLORD ---
Speech Language Pathology Order Status: GOURMET COFFEE ATTENDANT attempted to see patient this morning for continued patient education and dysphagia treatment. Patient expressing she is upset about her diet and says she was told by a doctor she is cleared to have thin liquids. GOURMET COFFEE ATTENDANT attempted to have conversation about MBSS findings and patient's condition. Patient got increasingly upset and refused to engage with clinician, shouting, I'm done talking about this! Go! Dr. Mario had discussion with patient yesterday in regards to her MBSS showing silent aspiration and subsequent recommendation for a modified diet (NDD3 & NTL). Patient would benefit from continued dysphagia tx at next level of care, however, compliance to recommendations uncertain at this point.
[2023-12-13 11:11] LABS: Glucose, Whole Blood 198 mg/dL (60-115)
--- NOTE | 2023-12-13 12:22 | HO.PM.IMPN ---
Subjective Subjective Date of Service: 12/13/23 Interval History: Seen and examined this morning Follow-up for AFib, COPD Upset about needing thickener for her liquids Says her breathing is better Review of Systems Review of Systems: Yes all other systems are reviewed and are negative Constitutional Constitutional: Denies chills and Denies fever(s) Physical Exam Vital Signs: Vital Signs: Last Vital Signs Temp 97.1 F 12/13/23 11:15 Pulse 110 H 12/13/23 11:15 Resp 20 12/13/23 11:15 BP 128/60 12/13/23 11:15 Pulse Ox 2 L 12/13/23 11:15 O2 Del Method Nasal Cannula 12/13/23 11:15 O2 Flow Rate 2 12/13/23 07:37 FiO2 40 12/02/23 04:00 Oxygen Flow Rate 2 11/10/23 07:30 BMI result Body Mass Index 33.0 Const: Other: Chronically ill-appearing General: alert, awake and Physically active Nutritional Appearance: overweight Resp: Effort & Inspection: normal respiratory effort, able to speak in complete sentences, no respiratory distress and no use of accessory muscles Cardio: Other: irregular GI: Inspection: No distended Palpation (GI): Soft to palpation Neuro: General: No moves all extremities Objective Data Active Medications Acetaminophen (Acetaminophen 325 Mg Tablet) 975 mg PO Q6H PRN PRN Reason: mild pain, headache or fever Last Admin: 12/12/23 01:06 Dose: 975 mg Documented By: KAMILA Albuterol Sulfate (Albuterol Sulfate (0.083%) 2.5 Mg/3 Ml Vial.Neb) 2.5 mg INHALE Q4H PRN PRN Reason: Shortness of Breath/Wheezing Last Admin: 12/10/23 01:03 Dose: 2.5 mg Documented By: MAGNUS Allopurinol (Allopurinol 300 Mg Tablet) 150 mg PO DAILY [facility] Last Admin: 12/13/23 07:44 Dose: 150 mg Documented By: CARMEN Amiodarone HCl (Amiodarone Hcl 200 Mg Tablet) 200 mg PO DAILY [facility] Last Admin: 12/13/23 07:44 Dose: 200 mg Documented By: CARMEN Apixaban (Apixaban 5 Mg Tablet) 5 mg PO BID [facility] Last Admin: 12/13/23 07:45 Dose: 5 mg Documented By: CARMEN Benzocaine (Throat Lozenge, Medicated Lozenge) 1 lozenge MUCOUS MEM Q2H PRN PRN Reason: Sore Throat Last Admin: 12/02/23 08:29 Dose: 1 lozenge Documented By: JAMEY Cyclobenzaprine HCl (Cyclobenzaprine Hcl 5 Mg Tablet) 5 mg PO BEDTIME [facility] Last Admin: 12/12/23 21:34 Dose: 5 mg Documented By: KAMILA Diltiazem HCl (Diltiazem Hcl Cd 240 Mg Cap.Er.Deg) 240 mg PO DAILY [facility]; Protocol Last Admin: 12/11/23 08:39 Dose: 240 mg Documented By: IVIS Diltiazem HCl (Diltiazem Hcl 30 Mg Tablet) 90 mg PO QID [facility]; Protocol Last Admin: 12/13/23 12:12 Dose: 90 mg Documented By: CARMEN Docusate Sodium (Docusate Sodium 100 Mg Capsule) 100 mg PO BID PRN PRN Reason: constipation Last Admin: 12/02/23 13:16 Dose: 100 mg Documented By: JAMEY Fluticasone/Vilanterol (Fluticasone/Vilanterol 100/25 Blst.W.Dev) 1 puff INHALE RDAILY [facility] Last Admin: 12/13/23 07:32 Dose: 1 puff Documented By: SORAYA Furosemide (Furosemide 40 Mg/4 Ml Vial) 40 mg IVPUSH BID@0630,1800 [facility]; Protocol Last Admin: 12/13/23 05:20 Dose: 40 mg Documented By: KAMILA Glucose (Glucose Gel 15 Gm Gel..Gram.) 15 gm PO Q15M PRN; Protocol PRN Reason: per Hypoglycemia Standing Ord. Guaifenesin (Guaifenesin La 600 Mg Tab.Er.12h) 600 mg PO BID [facility] Last Admin: 12/13/23 07:44 Dose: 600 mg Documented By: CARMEN Guaifenesin/Dextromethorphan (Guaifenesin Dm 600/30 1 Tab Tab.Er.12h) 1 tab PO BID [facility] Last Admin: 12/13/23 07:45 Dose: 1 tab Documented By: CARMEN Ceftriaxone Sodium 1 gm/ (Sodium Chloride) 50 mls @ 100 mls/hr IV Q24H [facility] Last Infusion: 12/12/23 18:08 Dose: Infused Documented By: IVIS Insulin Glargine (Insulin Glargine,Hum.Rec.Anlog 100 Unit/Ml 10 Ml Vial) 21 unit SUBCUT BEDTIME [facility] Last Admin: 12/12/23 21:49 Dose: 21 unit Documented By: KAMILA Insulin Glargine (Insulin Glargine,Hum.Rec.Anlog 100 Unit/Ml 10 Ml Vial) 7 unit SUBCUT DAILY [facility] Last Admin: 12/13/23 07:46 Dose: 7 unit Documented By: CARMEN Insulin Human Lispro (Insulin Lispro 100 Unit/Ml 3 Ml Vial) 0 unit SUBCUT QIDACHS [facility]; Protocol Last Admin: 12/13/23 12:13 Dose: 4 unit Documented By: CARMEN Ipratropium [place] (Ipratropium [place] 0.5 Mg/2.5 Ml Solution) 0.5 mg INHALE RQ4H WHILE AWAKE [facility] Last Admin: 12/13/23 11:05 Dose: 0.5 mg Documented By: SORAYA Levalbuterol HCl (Levalbuterol Hcl 1.25 Mg/3 Ml Vial.Neb) 1.25 mg INHALE RTID [facility] Last Admin: 12/13/23 07:31 Dose: 1.25 mg Documented By: SORAYA Lidocaine (Lidocaine 4 % Patch Adh..Patch) 1 patch TRANSDERMA DAILY [facility]; Protocol Last Admin: 12/13/23 07:46 Dose: 1 patch Documented By: CARMEN Lorazepam (Lorazepam 2 Mg/Ml Vial) 1 mg IM ONCE PRN PRN Reason: anxiety/restlessness Nicotine (Nicotine 14 Mg Patch.Td24) 14 mg TRANSDERMA DAILY [facility] Last Admin: 12/13/23 07:45 Dose: 14 mg Documented By: CARMEN Nystatin (Nystatin Oral Susp 500,000 Unit/5 Ml Oral.Susp) 500,000 unit PO QID [facility]; Protocol Last Admin: 12/13/23 12:13 Dose: 500,000 unit Documented By: CARMEN Omeprazole (Omeprazole 20 Mg Capsule.) 20 mg PO BID@0630,1630 [facility] Last Admin: 12/13/23 05:20 Dose: 20 mg Documented By: KAMILA Ondansetron HCl (Ondansetron Hcl 4 Mg/2 Ml Vial) 4 mg IVPUSH Q8H PRN PRN Reason: Nausea and Vomiting Last Admin: 11/12/23 20:05 Dose: 4 mg Documented By: TRUDY-RIVLA Oxycodone HCl (Oxycodone Hcl Immed Release 5 Mg Tablet) 5 mg PO Q8H PRN PRN Reason: Pain, Severe (Pain Scale 7-10) Last Admin: 12/13/23 07:45 Dose: 5 mg Documented By: CARMEN Paroxetine HCl (Paroxetine Hcl 20 Mg Tablet) 20 mg PO DAILY@0900 [facility] Last Admin: 12/13/23 07:45 Dose: 20 mg Documented By: CARMEN Prednisone (Prednisone 20 Mg Tablet) 40 mg PO DAILY [facility] Last Admin: 12/13/23 07:44 Dose: 40 mg Documented By: CARMEN Sodium Chloride (0.9 % Sodium Chloride Flush 3 Ml Syringe) 3 ml IVFLUSH QSHIFT [facility] Last Admin: 12/13/23 07:45 Dose: 3 ml Documented By: CARMEN Labs 12/13/23 08:41 12/12/23 06:33 Labs: Laboratory Results - last 24 hr 12/12/23 12/12/23 12/12/23 15:55 20:39 23:18 MCV MCH MCHC RDW Plt Count MPV Absolute Nucleated RBC Nucleated RBC % (auto) POC Glucose 405 H* 483 H* 303 H Magnesium 12/13/23 12/13/23 12/13/23 07:16 08:41 10:47 MCV 97.0 MCH 31.0 MCHC 31.9 RDW 19.2 H Plt Count 177 MPV 10.6 Absolute Nucleated RBC 0.000 Nucleated RBC % (auto) 0.0 POC Glucose 233 H 198 H Magnesium 2.0 Assessment and Plan (1) UTI (urinary tract infection): Status: Acute Plan 78yo F with PAF on apixaban, COPD not on hO2, gout, HF with unknown EF, and DM2. presented with AMS, admitted for hypoxia due to CAP + COPD. developed worsening hypoxia due to aspiration and intubated on 11/13/23 . extubated 11/14/23 and stepped down to telemetry 11/15/23. developed LGIB + CHF/COPD exacerbations. still on HFNC but gradually weaning # E.Coli UTI Ceftriaxone 1gm IV (12/07) # Restlessness, increase anxiety with Narcotic seeking behaviour IV Morphine discontinued, last dose 12/08 on Oxycodone during this hospital stay, continue PRN and decrease to Q8 Addiction team input appreciated Ativan PRN reorientation as needed #AFib RVR She keeps getting in and out of Afib rvr to sinus w MATs as P-waves can be seen on Tele give IV Cardizem prn Increase PO Cardizem QID to 90mg and hold the long acting one Continue amiodarone and eliquis changes nebs to Xopenex keep on Tele Cardiology suggests palliative care if can not control as ablation is the treatment to go #Acute hypoxic respiratory failure due to acute/chronic HFpEF and acute COPD exacerbation and aspiration pneumonia that required intubation--hypoxia now resolved. #Acute HFpEF--diuressed with IV Lasix and todate negative 18 L, BNP 80, Changed to oral Lasix 40 mg bid 12/12 #COPD exacerbation--Has been on steroid for nearly entire hospital stay. Was tapered down and then resumed on 40 mg daily on December 09, will begin to wean. continue bronchodilators by Neb. -Incentive spirometry # Aspiration pneumonia/Enterococcus faecalis bacteremia [positive BCx 10/29, repeat BCx 11/01 and 11/12 negative] azithro 10/30-11/04, vanco 10/30-10/31, ceftriaxone 10/31-11/01, pip-don 11/01- and again 11/12-11/22, dapto 11/06-11/12. 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 #DM2 with steroid-induced hyperglycemia, hyperglycemia overall improved. Continue Lantus at 21 at HS, reduce AM dose to 7, continue sliding scale #hypOkalemia, replaced and resolved. #Hypernatremia-resolved #pancreatic abnormality - CT Abdomen/Pelvis: Abrupt pancreatic size change with atrophy and ductal dilation beyond the neck; extra and intrahepatic biliary dilation up to the ampulla. - MRI: No pancreatic masses; changing pancreatic duct caliber with distal atrophy and ductal tortuosity and dilation, possible stricture. Distended gallbladder with sludge and small stones, common bile duct 1.4 cm with no intraductal defects, moderate intrahepatic biliary ductal dilation possibly due to biliary dyskinesia. - No abdominal pain, normal LFTs. Per GI, no aggressive invasive procedures recommended as the patient is asymptomatic. # moderate protein/oscar malnutrition, supplements #thrmbocytopenia--from acute illness resolved #Gout --Allopurinol #Mood disorder--Paroxetine #Urinary retention 12/04--persistent after multiple straight cath, Zafar and urology consult today Has not been participating in PT, but will need rehab vs fdc care CODE STATUS: DNR/DNI, confirmed with pt and her daughter and reaffirmed 11/20 DVT PPx; Eliquis reason for continued hospitalization: Restlessness and narcotic withdrawal will need placment. Quality Stroke Does the patient have a stroke diagnosis?: No VTE Prior VTE?: No VTE Risk Level:: Medical - moderate - high VTE Device Contraindication: Treatment Not Indicated VTE Drug Contraindication: N/A - Med Ordered
[2023-12-13 15:42] LABS: Glucose, Whole Blood 363 mg/dL (60-115)
[2023-12-13] MEDS: cefTRIAXone sodium 1 GM in 0.9 % Sodium Chloride 50 ML IV (16:03)
[2023-12-13] MEDS: Furosemide 40 MG TABLET PO (17:11)
[2023-12-13 20:40] LABS: Glucose, Whole Blood 438 mg/dL (60-115)
[2023-12-13] MEDS: Gabapentin 100 MG CAPSULE PO (21:56)
[2023-12-13] MEDS: Cyclobenzaprine HCl 5 MG TABLET PO (21:56)
[2023-12-13] MEDS: Insulin Glargine,Hum.rec.anlog 100 UNIT/ML 10 ML VIAL 21 UNIT SUBCUT (21:57)
[2023-12-14] VITALS (17 sets, daily range): BP systolic 123–160; BP diastolic 60–85; PULSE 71–109; RESP 18–26; TEMP 36.1–36.7; O2SAT 94–100; BMI 33.4
[2023-12-14] MEDS: Omeprazole 20 MG CAPSULE.DR PO ×2 (04:53→16:27)
[2023-12-14] MEDS: Fluticasone/Vilanterol 100/25 BLST.W.DEV 1 PUFF INHALE (07:26)
[2023-12-14] MEDS: levalbuterol HCL 1.25 MG/3 ML VIAL.NEB INHALE ×3 (07:26→19:00)
[2023-12-14] MEDS: Ipratropium Bromide 0.5 MG/2.5 ML SOLUTION INHALE ×4 (07:26→19:00)
[2023-12-14 07:47] LABS: Glucose, Whole Blood 164 mg/dL (60-115)
[2023-12-14] MEDS: Insulin Glargine,Hum.rec.anlog 100 UNIT/ML 10 ML VIAL 7 UNIT SUBCUT (08:10)
[2023-12-14] MEDS: Insulin Lispro 100 UNIT/ML 3 ML VIAL SUBCUT ×4 (08:10→21:56)
[2023-12-14] MEDS: Lidocaine 4 % Patch ADH..PATCH 1 PATCH TRANSDERMA (08:11)
[2023-12-14] MEDS: Nicotine 14 MG PATCH.TD24 TRANSDERMA (08:11)
[2023-12-14] MEDS: allopurinoL 300 MG TABLET 150 MG PO (08:12)
[2023-12-14] MEDS: guaiFENesin LA 600 MG TAB.ER.12H PO (08:12)
[2023-12-14] MEDS: predniSONE 10 MG TABLET 30 MG PO (08:12)
[2023-12-14] MEDS: Apixaban 5 MG TABLET PO ×2 (08:12→21:56)
[2023-12-14] MEDS: Nystatin Oral Susp 500,000 UNIT/5 ML ORAL.SUSP 500000 UNIT PO ×4 (08:12→21:56)
[2023-12-14] MEDS: Amiodarone HCL 200 MG TABLET PO (08:13)
[2023-12-14] MEDS: Gabapentin 100 MG CAPSULE PO ×3 (08:13→21:56)
[2023-12-14] MEDS: PARoxetine HCL 20 MG TABLET PO (08:13)
[2023-12-14] MEDS: Furosemide 40 MG TABLET PO ×2 (08:13→17:21)
[2023-12-14] MEDS: dilTIAZem HCL 30 MG TABLET 90 MG PO ×4 (08:13→21:55)
[2023-12-14] MEDS: guaiFENesin DM 600/30 1 TAB TAB.ER.12H PO ×2 (08:13→21:55)
[2023-12-14] MEDS: 0.9 % Sodium Chloride Flush 3 ML SYRINGE IVFLUSH ×2 (08:14→16:28)
[2023-12-14] MEDS: oxyCODONE HCl Immed Release 5 MG TABLET PO ×2 (08:16→17:21)
[2023-12-14 10:54] LABS: Glucose, Whole Blood 362 mg/dL (60-115)
[2023-12-14] MEDS: LORazepam 0.5 MG TABLET 0.25 MG PO (11:55)
--- NOTE | 2023-12-14 13:14 | PC.NURSE ---
Patient complaining of fullness to her abdominal area and concern that she isn't able to urinate. Patient states that she typically has a hard time urinating in the morning. Per patient wait until lunch time to bladder scan and give her time to try and urinate. At 12 patient shad still been unable to void, patient bladder scanned and showed >600 mls. MD notified and per MD zack luna. Patient was straight cathed at 12:30 and 500 mls were drained. Patient states that she felt immediate relief upon straight cathing. All other needs met at this time, call navarrete within reach.
--- NOTE | 2023-12-14 14:10 | P.PNIM_ITS ---
Subjective Subjective Date of Service: 12/14/23 Interval History: Seen and examined this morning Follow-up for multiple issues Patient was calm and cooperative during evaluation this morning. She denies any shortness of breath and states that her breathing is at her baseline although she does not typically use oxygen Attempted to discuss palliative/hospice care, she is not interested in that Review of Systems Review of Systems: Yes all other systems are reviewed and are negative Constitutional Constitutional: Denies fever(s) Cardiovascular Cardiovascular: Denies chest pain Physical Exam 2 Vital Signs: Vital Signs: Last Vital Signs Temp 97.2 F 12/14/23 11:17 Pulse 105 H 12/14/23 11:52 Resp 20 12/14/23 11:29 BP 157/66 H 12/14/23 11:52 Pulse Ox 94 12/14/23 11:17 O2 Del Method Nasal Cannula 12/14/23 11:17 O2 Flow Rate 2 12/14/23 11:17 FiO2 40 12/02/23 04:00 Oxygen Flow Rate 2 11/10/23 07:30 BMI result Body Mass Index 33.4 Const: Other: Chronically ill-appearing General: alert, awake and Physically active Nutritional Appearance: o verweight Resp: Effort & Inspection: normal respiratory effort, able to speak in complete sentences, no respiratory distress and no use of accessory muscles Cardio: Other: irregular GI: Inspection: No distended Palpation (GI): Soft to palpation Neuro: General: No moves all extremities Objective Data Active Medications Acetaminophen (Acetaminophen 325 Mg Tablet) 975 mg PO Q6H PRN PRN Reason: mild pain, headache or fever Last Admin: 12/12/23 01:06 Dose: 975 mg Documented By: KAMILA Albuterol Sulfate (Albuterol Sulfate (0.083%) 2.5 Mg/3 Ml Vial.Neb) 2.5 mg INHALE Q4H PRN PRN Reason: Shortness of Breath/Wheezing Last Admin: 12/10/23 01:03 Dose: 2.5 mg Documented By: MAGNUS Allopurinol (Allopurinol 300 Mg Tablet) 150 mg PO DAILY [facility] Last Admin: 12/14/23 08:12 Dose: 150 mg Documented By: TYE Amiodarone HCl (Amiodarone Hcl 200 Mg Tablet) 200 mg PO DAILY [facility] Last Admin: 12/14/23 08:13 Dose: 200 mg Documented By: TYE Apixaban (Apixaban 5 Mg Tablet) 5 mg PO BID [facility] Last Admin: 12/14/23 08:12 Dose: 5 mg Documented By: TYE Benzocaine (Throat Lozenge, Medicated Lozenge) 1 lozenge MUCOUS MEM Q2H PRN PRN Reason: Sore Throat Last Admin: 12/02/23 08:29 Dose: 1 lozenge Documented By: JAMEY Cyclobenzaprine HCl (Cyclobenzaprine Hcl 5 Mg Tablet) 5 mg PO BEDTIME [facility] Last Admin: 12/13/23 21:56 Dose: 5 mg Documented By: KAMILA Diltiazem HCl (Diltiazem Hcl Cd 240 Mg Cap.Er.Deg) 240 mg PO DAILY [facility]; Protocol Last Admin: 12/11/23 08:39 Dose: 240 mg Documented By: IVIS Diltiazem HCl (Diltiazem Hcl 30 Mg Tablet) 90 mg PO QID [facility]; Protocol Last Admin: 12/14/23 11:52 Dose: 90 mg Documented By: TYE Docusate Sodium (Docusate Sodium 100 Mg Capsule) 100 mg PO BID PRN PRN Reason: constipation Last Admin: 12/02/23 13:16 Dose: 100 mg Documented By: JAMEY Fluticasone/Vilanterol (Fluticasone/Vilanterol 100/25 Blst.W.Dev) 1 puff INHALE RDAILY [facility] Last Admin: 12/14/23 07:26 Dose: 1 puff Documented By: SORAYA Furosemide (Furosemide 40 Mg Tablet) 40 mg PO BID@0900,1800 [facility]; Protocol Last Admin: 12/14/23 08:13 Dose: 40 mg Documented By: TYE Gabapentin (Gabapentin 100 Mg Capsule) 100 mg PO TID [facility] Glucose (Glucose Gel 15 Gm Gel..Gram.) 15 gm PO Q15M PRN; Protocol PRN Reason: per Hypoglycemia Standing Ord. Guaifenesin (Guaifenesin La 600 Mg Tab.Er.12h) 600 mg PO BID [facility] Last Admin: 12/14/23 08:12 Dose: 600 mg Documented By: TYE Guaifenesin/Dextromethorphan (Guaifenesin Dm 600/30 1 Tab Tab.Er.12h) 1 tab PO BID [facility] Last Admin: 12/14/23 08:13 Dose: 1 tab Documented By: TYE Ceftriaxone Sodium 1 gm/ (Sodium Chloride) 50 mls @ 100 mls/hr IV Q24H [facility] Last Infusion: 12/13/23 16:50 Dose: Infused Documented By: CARMEN Insulin Glargine (Insulin Glargine,Hum.Rec.Anlog 100 Unit/Ml 10 Ml Vial) 21 unit SUBCUT BEDTIME [facility] Last Admin: 12/13/23 21:57 Dose: 21 unit Documented By: KAMILA Insulin Glargine (Insulin Glargine,Hum.Rec.Anlog 100 Unit/Ml 10 Ml Vial) 7 unit SUBCUT DAILY [facility] Last Admin: 12/14/23 08:10 Dose: 7 unit Documented By: TYE Insulin Human Lispro (Insulin Lispro 100 Unit/Ml 3 Ml Vial) 0 unit SUBCUT QIDACHS [facility]; Protocol Last Admin: 12/14/23 11:55 Dose: 14 unit Documented By: TYE Ipratropium [place] (Ipratropium [place] 0.5 Mg/2.5 Ml Solution) 0.5 mg INHALE RQ4H WHILE AWAKE [facility] Last Admin: 12/14/23 11:24 Dose: 0.5 mg Documented By: SORAYA Levalbuterol HCl (Levalbuterol Hcl 1.25 Mg/3 Ml Vial.Neb) 1.25 mg INHALE RTID [facility] Last Admin: 12/14/23 07:26 Dose: 1.25 mg Documented By: SORAYA Lidocaine (Lidocaine 4 % Patch Adh..Patch) 1 patch TRANSDERMA DAILY [facility]; Protocol Last Admin: 12/14/23 08:11 Dose: 1 patch Documented By: TYE Lorazepam (Lorazepam 2 Mg/Ml Vial) 1 mg IM ONCE PRN PRN Reason: anxiety/restlessness Nicotine (Nicotine 14 Mg Patch.Td24) 14 mg TRANSDERMA DAILY [facility] Last Admin: 12/14/23 08:11 Dose: 14 mg Documented By: TYE Nystatin (Nystatin Oral Susp 500,000 Unit/5 Ml Oral.Susp) 500,000 unit PO QID [facility]; Protocol Last Admin: 12/14/23 11:55 Dose: 500,000 unit Documented By: TYE Omeprazole (Omeprazole 20 Mg Alexx.) 20 mg PO BID@0630,1630 [facility] Last Admin: 12/14/23 04:53 Dose: 20 mg Documented By: KAMILA Ondansetron HCl (Ondansetron Hcl 4 Mg/2 Ml Vial) 4 mg IVPUSH Q8H PRN PRN Reason: Nausea and Vomiting Last Admin: 11/12/23 20:05 Dose: 4 mg Documented By: TRUDY-RIVAKANKSHA Oxycodone HCl (Oxycodone Hcl Immed Release 5 Mg Tablet) 5 mg PO Q8H PRN PRN Reason: Pain, Severe (Pain Scale 7-10) Last Admin: 12/14/23 08:16 Dose: 5 mg Documented By: TYE Paroxetine HCl (Paroxetine Hcl 20 Mg Tablet) 20 mg PO DAILY@0900 [facility] Last Admin: 12/14/23 08:13 Dose: 20 mg Documented By: TYE Prednisone (Prednisone 10 Mg Tablet) 30 mg PO DAILY [facility] Last Admin: 12/14/23 08:12 Dose: 30 mg Documented By: TYE Sodium Chloride (0.9 % Sodium Chloride Flush 3 Ml Syringe) 3 ml IVFLUSH QSHIFT [facility] Last Admin: 12/14/23 08:14 Dose: 3 ml Documented By: TYE Labs 12/13/23 08:41 12/12/23 06:33 Labs: Laboratory Results - last 24 hr 12/13/23 12/13/23 12/14/23 15:37 20:35 07:44 POC Glucose 363 H* 438 H* 164 H 12/14/23 10:50 POC Glucose 362 H* Assessment and Plan (1) Multifocal atrial tachycardia: Status: Acute Plan 78yo F with PAF on apixaban, COPD not on hO2, gout, HF with unknown EF, and DM2. presented with AMS, admitted for hypoxia due to CAP + COPD. developed worsening hypoxia due to aspiration and intubated on 11/13/23 . extubated 11/14/23 and stepped down to telemetry 11/15/23. developed LGIB + CHF/COPD exacerbations. still on HFNC but gradually weaning # E.Coli UTI Ceftriaxone 1gm IV (12/07) plan 7 days # Restlessness, increase anxiety with Narcotic seeking behaviour/chronic back pain IV Morphine discontinued, last dose 12/08 on Oxycodone during this hospital stay, continue PRN and decrease to Q8 Addiction team input appreciated was on gabapentin and scheduled Flexeril at baseline, was not included on med reconciliation Will start low-dose gabapentin and up titrate as needed, monitor for sedation #AFib RVR She keeps getting in and out of Afib rvr to sinus w MATs as P-waves can be seen on Tele give IV Cardizem prn Increase PO Cardizem QID to 90mg and hold the long acting one Continue amiodarone and eliquis changes nebs to Xopenex keep on Tele Cardiology suggests palliative care if can not control as ablation is the treatment to go patient does not want palliative care #Acute hypoxic respiratory failure due to acute/chronic HFpEF and acute COPD exacerbation and aspiration pneumonia that required intubation-on 2L supplemental oxygen #Acute HFpEF--diuressed with IV Lasix and to date negative 18 L, BNP 80, Changed to oral Lasix 40 mg bid 12/12 #COPD exacerbation--Has been on steroid for nearly entire hospital stay. Was tapered down and then resumed on 40 mg daily on December 09, will begin to wean. continue bronchodilators by Neb. -Incentive spirometry # Aspiration pneumonia/Enterococcus faecalis bacteremia [positive BCx 10/29, repeat BCx 11/01 and 11/12 negative] azithro 10/30-11/04, vanco 10/30-10/31, ceftriaxone 10/31-11/01, pip-odn 11/01- and again 11/12-11/22, dapto 11/06-11/12. 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 #DM2 with steroid-induced hyperglycemia, hyperglycemia overall improved. Continue Lantus at 21 at HS, reduce AM dose to 7, continue sliding scale #hypOkalemia, replaced and resolved. #Hypernatremia-resolved #pancreatic abnormality - CT Abdomen/Pelvis: Abrupt pancreatic size change with atrophy and ductal dilation beyond the neck; extra and intrahepatic biliary dilation up to the ampulla. - MRI: No pancreatic masses; changing pancreatic duct caliber with distal atrophy and ductal tortuosity and dilation, possible stricture. Distended gallbladder with sludge and small stones, common bile duct 1.4 cm with no intraductal defects, moderate intrahepatic biliary ductal dilation possibly due to biliary dyskinesia. - No abdominal pain, normal LFTs. Per GI, no aggressive invasive procedures recommended as the patient is asymptomatic. # moderate protein/oscar malnutrition, supplements #thrmbocytopenia--from acute illness resolved #Gout --Allopurinol #Mood disorder--Paroxetine #Urinary retention 12/04--persistent after multiple straight cath, s/p [place] placement Has not been participating in PT, but will need rehab vs nursing home care CODE STATUS: DNR/DNI Goals of care-attempted to discuss palliative care/hospice. Patient is not currently willing to accept these services. She does agree that she wants to be DNR/DNI DVT PPx; Eliquis reason for continued hospitalization: Restlessness and narcotic withdrawal Quality Stroke Does the patient have a stroke diagnosis?: No VTE Prior VTE?: No VTE Risk Level:: Medical - moderate - high VTE Device Contraindication: Treatment Not Indicated VTE Drug Contraindication: N/A - Med Ordered
--- NOTE | 2023-12-14 15:29 | MHC.CLN ---
F/U PT IS MODERATELY MALNOURISHED PO INTAKE VARIABLE, 0-100%, WITH MOST MEALS APPROX 75%. 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
--- NOTE | 2023-12-14 15:38 | MHC.CM.PN ---
CM MET W/PT TO COMPLETE A NEW HCP THE ONE WE HAD ON FILE WAS HER BROTHER DARIUS WHO AND HER SON PATRICK IYER FROM [place] WHO IS A SEX OFFENDER AND PTAND CM UNABLE TO CONTACT AFTER TRYING SEVERAL DIFFERENT NUMBERS, ALL WERE NO LONG WORKING, PT AGREEABLE TO COMPLETE A NEW HCP AND NAMED HER GDTR SARAH WYMAN [phone] HER [facility] AND HER DTR KRISTEN JARRETT (# ON FILE) HER ALTERNATE. DURING CONVERSATION PT DID REPORT THAT IT WAS VERY SCARY FOR HER WHEN SHE WAS EXTUBATED AND DOES NOT WANT TO DO THAT AGAIN, PT HAS COMPLETED A MOLST W/DNI/DNR. PT ALSO REPORTED TO CM EARLIER IN SHIFT AND AGAIN WHILE DISCUSSING HER HCP THAT SHE WILL NOT LEAVE THE HOSPITAL AND/OR GO TO [facility], PT VERY ADAMANT THAT SHE IS ABLE TO STAY AT [facility] INDEFINITELY, CASE DISCUSSED W/CM [employer] UNIX ENGINEER AND CM HAS REQUESTED COMPETENCY.
[2023-12-14] MEDS: cefTRIAXone sodium 1 GM in 0.9 % Sodium Chloride 50 ML IV (16:27)
[2023-12-14 16:30] LABS: Glucose, Whole Blood 344 mg/dL (60-115)
[2023-12-14 21:13] LABS: Glucose, Whole Blood 405 mg/dL (60-115)
[2023-12-14] MEDS: Cyclobenzaprine HCl 5 MG TABLET PO (21:56)
[2023-12-14] MEDS: Insulin Glargine,Hum.rec.anlog 100 UNIT/ML 10 ML VIAL 21 UNIT SUBCUT (21:56)
[2023-12-14] MEDS: Acetaminophen 325 MG TABLET 975 MG PO (21:57)
[2023-12-14] MEDS: Throat Lozenge, Medicated LOZENGE 1 LOZENGE MUCOUS MEM (21:57)
[2023-12-15] VITALS (12 sets, daily range): BP systolic 126–159; BP diastolic 61–90; PULSE 77–126; RESP 20–24; TEMP 36.2–37.1; O2SAT 94–98; BMI 33.7
[2023-12-15] MEDS: 0.9 % Sodium Chloride Flush 3 ML SYRINGE IVFLUSH ×3 (01:17→14:58)
[2023-12-15] MEDS: oxyCODONE HCl Immed Release 5 MG TABLET PO ×3 (01:18→21:08)
[2023-12-15] MEDS: Omeprazole 20 MG CAPSULE.DR PO ×2 (06:09→16:21)
[2023-12-15] MEDS: Acetaminophen 325 MG TABLET 975 MG PO (06:09)
[2023-12-15 06:55] LABS: Anion Gap 11 (12-20); Blood Urea Nitrogen 37 mg/dL (9-16); Calcium 9.3 mg/dL (8.4-10.2); Carbon Dioxide 38 mmol/L (22-29); Chloride 97 mmol/L (96-108); Creatinine Clr Calc Pharmacy 72.1; Estimated Glomerular Filt Rate > 60; Glucose Random 143 mg/dL (60-115); Potassium 3.3 mmol/L (3.3-5.1); Sodium 143 mmol/L (135-145)
[2023-12-15 07:28] LABS: Glucose, Whole Blood 134 mg/dL (60-115)
[2023-12-15] MEDS: levalbuterol HCL 1.25 MG/3 ML VIAL.NEB INHALE ×3 (08:19→19:03)
[2023-12-15] MEDS: Fluticasone/Vilanterol 100/25 BLST.W.DEV 1 PUFF INHALE (08:19)
[2023-12-15] MEDS: Ipratropium Bromide 0.5 MG/2.5 ML SOLUTION INHALE ×4 (08:19→19:03)
[2023-12-15] MEDS: Nicotine 14 MG PATCH.TD24 TRANSDERMA (08:39)
[2023-12-15] MEDS: Lidocaine 4 % Patch ADH..PATCH 1 PATCH TRANSDERMA (08:40)
[2023-12-15] MEDS: Insulin Lispro 100 UNIT/ML 3 ML VIAL SUBCUT ×4 (08:40→21:02)
[2023-12-15] MEDS: Amiodarone HCL 200 MG TABLET PO (08:41)
[2023-12-15] MEDS: PARoxetine HCL 20 MG TABLET PO (08:41)
[2023-12-15] MEDS: Gabapentin 100 MG CAPSULE PO ×3 (08:41→21:01)
[2023-12-15] MEDS: Furosemide 40 MG TABLET PO ×2 (08:41→17:17)
[2023-12-15] MEDS: Apixaban 5 MG TABLET PO ×2 (08:42→21:01)
[2023-12-15] MEDS: allopurinoL 300 MG TABLET 150 MG PO (08:42)
[2023-12-15] MEDS: dilTIAZem HCL 30 MG TABLET 90 MG PO ×4 (08:43→21:00)
[2023-12-15] MEDS: predniSONE 10 MG TABLET 30 MG PO (08:43)
[2023-12-15] MEDS: Nystatin Oral Susp 500,000 UNIT/5 ML ORAL.SUSP 500000 UNIT PO ×4 (08:43→21:00)
[2023-12-15] MEDS: guaiFENesin DM 600/30 1 TAB TAB.ER.12H PO ×2 (08:55→21:01)
--- NOTE | 2023-12-15 09:11 | P.PNIM_ITS ---
Subjective Subjective Date of Service: 12/15/23 Interval History: Seen and examined this morning Follow-up for multiple issues Patient was calm and cooperative during evaluation this morning. She denies any shortness of breath and states that her breathing is at her baseline although she does not typically use oxygen Review of Systems Review of Systems: Yes all other systems are reviewed and are negative Constitutional Constitutional: Denies fever(s) Cardiovascular Cardiovascular: Denies chest pain Physical Exam 2 Vital Signs: Vital Signs: Last Vital Signs Temp 97.9 F 12/15/23 08:00 Pulse 104 H 12/15/23 08:21 Resp 20 12/15/23 08:21 BP 140/70 H 12/15/23 08:00 Pulse Ox 97 12/15/23 08:00 O2 Del Method Nasal Cannula 12/15/23 08:00 O2 Flow Rate 2 12/15/23 08:00 FiO2 40 12/02/23 04:00 Oxygen Flow Rate 2 11/10/23 07:30 BMI result Body Mass Index 33.7 Appearing in no acute distress lung sounds are clear to auscultation heart regular rate rhythm, clear S1, S2 positive bowel sounds, abdomen is soft, nontender neuro patient is alert x3, no focal deficits Objective Data Active Medications Acetaminophen (Acetaminophen 325 Mg Tablet) 975 mg PO Q6H PRN PRN Reason: mild pain, headache or fever Last Admin: 12/15/23 06:09 Dose: 975 mg Documented By: JOE Albuterol Sulfate (Albuterol Sulfate (0.083%) 2.5 Mg/3 Ml Vial.Neb) 2.5 mg INHALE Q4H PRN PRN Reason: Shortness of Breath/Wheezing Last Admin: 12/10/23 01:03 Dose: 2.5 mg Documented By: MAGNUS Allopurinol (Allopurinol 300 Mg Tablet) 150 mg PO DAILY [facility] Last Admin: 12/15/23 08:42 Dose: 150 mg Documented By: TANO Amiodarone HCl (Amiodarone Hcl 200 Mg Tablet) 200 mg PO DAILY [facility] Last Admin: 12/15/23 08:41 Dose: 200 mg Documented By: TANO Apixaban (Apixaban 5 Mg Tablet) 5 mg PO BID [facility] Last Admin: 12/15/23 08:42 Dose: 5 mg Documented By: TANO Benzocaine (Throat Lozenge, Medicated Lozenge) 1 lozenge MUCOUS MEM Q2H PRN PRN Reason: Sore Throat Last Admin: 12/14/23 21:57 Dose: 1 lozenge Documented By: JOE Comments: administered for cough/ dry/sore throat Cyclobenzaprine HCl (Cyclobenzaprine Hcl 5 Mg Tablet) 5 mg PO BEDTIME [facility] Last Admin: 12/14/23 21:56 Dose: 5 mg Documented By: JOE Diltiazem HCl (Diltiazem Hcl Cd 240 Mg Cap.Er.Deg) 240 mg PO DAILY [facility]; Protocol Last Admin: 12/11/23 08:39 Dose: 240 mg Documented By: IVIS Diltiazem HCl (Diltiazem Hcl 30 Mg Tablet) 90 mg PO QID [facility]; Protocol Last Admin: 12/15/23 08:43 Dose: 90 mg Documented By: TANO Docusate Sodium (Docusate Sodium 100 Mg Capsule) 100 mg PO BID PRN PRN Reason: constipation Last Admin: 12/02/23 13:16 Dose: 100 mg Documented By: JAMEY Fluticasone/Vilanterol (Fluticasone/Vilanterol 100/25 Blst.W.Dev) 1 puff INHALE RDAILY [facility] Last Admin: 12/15/23 08:19 Dose: 1 puff Documented By: ISABELLE Furosemide (Furosemide 40 Mg Tablet) 40 mg PO BID@0900,1800 [facility]; Protocol Last Admin: 12/15/23 08:41 Dose: 40 mg Documented By: TANO Gabapentin (Gabapentin 100 Mg Capsule) 100 mg PO TID [facility] Last Admin: 12/15/23 08:41 Dose: 100 mg Documented By: TANO Glucose (Glucose Gel 15 Gm Gel..Gram.) 15 gm PO Q15M PRN; Protocol PRN Reason: per Hypoglycemia Standing Ord. Guaifenesin/Dextromethorphan (Guaifenesin Dm 600/30 1 Tab Tab.Er.12h) 1 tab PO BID [facility] Last Admin: 12/15/23 08:55 Dose: 1 tab Documented By: TANO Ceftriaxone Sodium 1 gm/ (Sodium Chloride) 50 mls @ 100 mls/hr IV Q24H [facility] Stop: 12/15/23 15:59 Last Infusion: 12/14/23 17:21 Dose: Infused Documented By: TYE Insulin Glargine (Insulin Glargine,Hum.Rec.Anlog 100 Unit/Ml 10 Ml Vial) 21 unit SUBCUT BEDTIME [facility] Last Admin: 12/14/23 21:56 Dose: 21 unit Documented By: JOE Insulin Glargine (Insulin Glargine,Hum.Rec.Anlog 100 Unit/Ml 10 Ml Vial) 7 unit SUBCUT DAILY [facility] Last Admin: 12/14/23 08:10 Dose: 7 unit Documented By: TYE Insulin Human Lispro (Insulin Lispro 100 Unit/Ml 3 Ml Vial) 0 unit SUBCUT QIDACHS [facility]; Protocol Last Admin: 12/15/23 08:40 Dose: 2 unit Documented By: TANO Ipratropium [place] (Ipratropium [place] 0.5 Mg/2.5 Ml Solution) 0.5 mg INHALE RQ4H WHILE AWAKE [facility] Last Admin: 12/15/23 08:19 Dose: 0.5 mg Documented By: ISABELLE Levalbuterol HCl (Levalbuterol Hcl 1.25 Mg/3 Ml Vial.Neb) 1.25 mg INHALE RTID [facility] Last Admin: 12/15/23 08:19 Dose: 1.25 mg Documented By: ISABELLE Lidocaine (Lidocaine 4 % Patch Adh..Patch) 1 patch TRANSDERMA DAILY [facility]; Protocol Last Admin: 12/15/23 08:40 Dose: 1 patch Documented By: TANO Lorazepam (Lorazepam 2 Mg/Ml Vial) 1 mg IM ONCE PRN PRN Reason: anxiety/restlessness Nicotine (Nicotine 14 Mg Patch.Td24) 14 mg TRANSDERMA DAILY [facility] Last Admin: 12/15/23 08:39 Dose: 14 mg Documented By: TANO Nystatin (Nystatin Oral Susp 500,000 Unit/5 Ml Oral.Susp) 500,000 unit PO QID [facility]; Protocol Last Admin: 12/15/23 08:43 Dose: 500,000 unit Documented By: TANO Omeprazole (Omeprazole 20 Mg Capsule.Dr) 20 mg PO BID@0630,1630 [facility] Last Admin: 12/15/23 06:09 Dose: 20 mg Documented By: JOE Ondansetron HCl (Ondansetron Hcl 4 Mg/2 Ml Vial) 4 mg IVPUSH Q8H PRN PRN Reason: Nausea and Vomiting Last Admin: 11/12/23 20:05 Dose: 4 mg Documented By: TRUDY-RIVAKANKSHA Oxycodone HCl (Oxycodone Hcl Immed Release 5 Mg Tablet) 5 mg PO Q8H PRN PRN Reason: Pain, Severe (Pain Scale 7-10) Last Admin: 12/15/23 01:18 Dose: 5 mg Documented By: JOE Paroxetine HCl (Paroxetine Hcl 20 Mg Tablet) 20 mg PO DAILY@0900 [facility] Last Admin: 12/15/23 08:41 Dose: 20 mg Documented By: TANO Prednisone (Prednisone 10 Mg Tablet) 30 mg PO DAILY [facility] Last Admin: 12/15/23 08:43 Dose: 30 mg Documented By: TANO Sodium Chloride (0.9 % Sodium Chloride Flush 3 Ml Syringe) 3 ml IVFLUSH QSHIFT [facility] Last Admin: 12/15/23 08:42 Dose: 3 ml Documented By: TANO Labs 12/13/23 08:41 12/15/23 06:09 Labs: Laboratory Results - last 24 hr 12/14/23 12/14/23 12/14/23 10:50 16:23 21:09 Anion Gap Estim Creat Clear Calc Estimated GFR POC Glucose 362 H* 344 H 405 H* Random Glucose Calcium 12/15/23 12/15/23 06:09 07:23 Anion Gap 11 L Estim Creat Clear Calc 72.1 Estimated GFR > 60 POC Glucose 134 H Random Glucose 143 H Calcium 9.3 Assessment and Plan (1) Multifocal atrial tachycardia: Status: Acute Plan 78yo F with PAF on apixaban, COPD not on hO2, gout, HF with unknown EF, and DM2. presented with AMS, admitted for hypoxia due to CAP + COPD. developed worsening hypoxia due to aspiration and intubated on 11/13/23 . extubated 11/14/23 and stepped down to telemetry 11/15/23. developed LGIB + CHF/COPD exacerbations. still on HFNC but gradually weaning E.Coli UTI Ceftriaxone 1gm IV (12/07) plan 7 days Restlessness, increase anxiety with narcotic seeking behaviour/chronic back pain IV Morphine discontinued, last dose 12/08 on Oxycodone during this hospital stay, continue PRN and decrease to Q8 Addiction team input appreciated was on gabapentin and flexeril at baseline Will start low-dose gabapentin and up titrate as needed, monitor for sedation AFib RVR PO Cardizem QID to 90mg and hold the long acting one Continue amiodarone and eliquis Xopenex Cardiology suggests palliative care if can not control as ablation is the treatment to go patient does not want palliative care Acute hypoxic respiratory failure due to acute/chronic HFpEF, acute COPD exacerbation and aspiration pneumonia required intubation and ICU admission 11/13/23, extubated 12/03 and tx [facility] floor 11/16/23 on 2L supplemental oxygen Acute HFpEF diuressed with IV Lasix and to date negative 18 L oral Lasix 40 mg bid 12/12 COPD exacerbation Has been on steroid for nearly entire hospital stay. Was tapered down and then resumed on 40 mg daily on December 09, will begin to wean. continue duonebs, IS Aspiration pneumonia/Enterococcus faecalis bacteremia positive BCx 10/29, was on azithro 10/30-11/04, vanco 10/30-10/31, ceftriaxone 10/31-11/01, pip-don 11/01- and again 11/12-11/22, dapto 11/06-11/12. s/p Total 21d antibiotics Dysphagia MBS 12/02 silent aspiration [employer] rec NDD3, [place] thick liquid, meds whole with puree ABLA d/t LGIB resolved. DM2 with steroid-induced hyperglycemia hyperglycemia overall improved. ss, lantus Hypokalemia replaced and resolved. Hypernatremia resolved Pancreatic abnormality MRI: showed no pancreatic masses; changing pancreatic duct caliber with distal atrophy and ductal tortuosity and dilation, possible stricture. Distended gallbladder with sludge and small stones, common bile duct 1.4 cm with no intraductal defects, moderate intrahepatic biliary ductal dilation possibly due to biliary dyskinesia. No abdominal pain, normal LFTs. Per GI, no aggressive invasive procedures recommended as the patient is asymptomatic. moderate protein/oscar malnutrition supplements thrombocytopenia from acute illness resolved Gout Allopurinol Mood disorder Paroxetine Urinary retention 12/04 persistent after multiple straight cath, s/p powell placement Has not been participating in PT, but will need rehab vs [facility] care CODE STATUS: DNR/DNI Goals of care-attempted to discuss palliative care/hospice. Patient is not currently willing to accept these services. She does agree that she wants to be DNR/DNI DVT PPx; Eliquis reason for continued hospitalization: Restlessness and narcotic withdrawal Quality Stroke Does the patient have a stroke diagnosis?: No VTE Prior VTE?: No VTE Risk Level:: Medical - moderate - high VTE Device Contraindication: Treatment Not Indicated VTE Drug Contraindication: N/A - Med Ordered
[2023-12-15] MEDS: Throat Lozenge, Medicated LOZENGE 1 LOZENGE MUCOUS MEM (09:28)
[2023-12-15] MEDS: Insulin Glargine,Hum.rec.anlog 100 UNIT/ML 10 ML VIAL 7 UNIT SUBCUT (09:29)
[2023-12-15 11:29] LABS: Glucose, Whole Blood 253 mg/dL (60-115)
[2023-12-15 16:05] LABS: Glucose, Whole Blood 398 mg/dL (60-115)
[2023-12-15 20:51] LABS: Glucose, Whole Blood 390 mg/dL (60-115)
[2023-12-15] MEDS: Insulin Glargine,Hum.rec.anlog 100 UNIT/ML 10 ML VIAL 21 UNIT SUBCUT (21:01)
[2023-12-15] MEDS: Cyclobenzaprine HCl 5 MG TABLET PO (21:01)
[2023-12-16] VITALS (14 sets, daily range): BP systolic 116–148; BP diastolic 57–78; PULSE 71–119; RESP 20–24; TEMP 36.1–36.6; O2SAT 91–100; BMI 33.8
[2023-12-16] MEDS: 0.9 % Sodium Chloride Flush 3 ML SYRINGE IVFLUSH ×4 (00:21→21:34)
[2023-12-16] MEDS: Omeprazole 20 MG CAPSULE.DR PO ×2 (06:26→17:07)
[2023-12-16] MEDS: oxyCODONE HCl Immed Release 5 MG TABLET PO ×2 (06:29→18:29)
[2023-12-16] MEDS: Ipratropium Bromide 0.5 MG/2.5 ML SOLUTION INHALE ×4 (07:05→19:37)
[2023-12-16] MEDS: levalbuterol HCL 1.25 MG/3 ML VIAL.NEB INHALE ×3 (07:05→19:37)
[2023-12-16] MEDS: Fluticasone/Vilanterol 100/25 BLST.W.DEV 1 PUFF INHALE (07:06)
[2023-12-16 07:42] LABS: Glucose, Whole Blood 255 mg/dL (60-115)
[2023-12-16] MEDS: Lidocaine 4 % Patch ADH..PATCH 1 PATCH TRANSDERMA (08:12)
[2023-12-16] MEDS: Nystatin Oral Susp 500,000 UNIT/5 ML ORAL.SUSP 500000 UNIT PO ×4 (08:13→21:32)
[2023-12-16] MEDS: Apixaban 5 MG TABLET PO ×2 (08:13→21:29)
[2023-12-16] MEDS: Nicotine 14 MG PATCH.TD24 TRANSDERMA (08:13)
[2023-12-16] MEDS: allopurinoL 300 MG TABLET 150 MG PO (08:14)
[2023-12-16] MEDS: guaiFENesin DM 600/30 1 TAB TAB.ER.12H PO ×2 (08:14→21:29)
[2023-12-16] MEDS: PARoxetine HCL 20 MG TABLET PO (08:14)
[2023-12-16] MEDS: predniSONE 10 MG TABLET 30 MG PO (08:15)
[2023-12-16] MEDS: dilTIAZem HCL 30 MG TABLET 90 MG PO ×4 (08:15→21:29)
[2023-12-16] MEDS: Amiodarone HCL 200 MG TABLET PO (08:15)
[2023-12-16] MEDS: Gabapentin 100 MG CAPSULE PO ×3 (08:15→21:28)
[2023-12-16] MEDS: Furosemide 40 MG TABLET PO ×2 (08:15→17:07)
[2023-12-16] MEDS: Insulin Lispro 100 UNIT/ML 3 ML VIAL SUBCUT ×7 (08:16→21:34)
--- NOTE | 2023-12-16 09:49 | P.PNIM_ITS ---
Subjective Subjective Date of Service: 12/16/23 Interval History: Seen and examined this morning Follow-up for multiple issues Patient was calm and cooperative during evaluation this morning. She denies any shortness of breath and states that her breathing is at her baseline although she does not typically use oxygen Review of Systems Review of Systems: Yes all other systems are reviewed and are negative Constitutional Constitutional: Denies fever(s) Cardiovascular Cardiovascular: Denies chest pain Physical Exam 2 Vital Signs: Vital Signs: Last Vital Signs Temp 97.8 F 12/16/23 08:00 Pulse 106 H 12/16/23 08:15 Resp 24 H 12/16/23 08:00 BP 146/62 H 12/16/23 08:15 Pulse Ox 94 12/16/23 08:00 O2 Del Method Nasal Cannula 12/16/23 08:00 O2 Flow Rate 2 12/16/23 08:00 FiO2 40 12/02/23 04:00 Oxygen Flow Rate 2 11/10/23 07:30 BMI result Body Mass Index 33.8 Appearing in no acute distress lung sounds are clear to auscultation heart regular rate rhythm, clear S1, S2 positive bowel sounds, abdomen is soft, nontender neuro patient is alert x3, no focal deficits Objective Data Active Medications Acetaminophen (Acetaminophen 325 Mg Tablet) 975 mg PO Q6H PRN PRN Reason: mild pain, headache or fever Last Admin: 12/15/23 06:09 Dose: 975 mg Documented By: JOE Allopurinol (Allopurinol 300 Mg Tablet) 150 mg PO DAILY [facility] Last Admin: 12/16/23 08:14 Dose: 150 mg Documented By: TANO Amiodarone HCl (Amiodarone Hcl 200 Mg Tablet) 200 mg PO DAILY [facility] Last Admin: 12/16/23 08:15 Dose: 200 mg Documented By: TANO Apixaban (Apixaban 5 Mg Tablet) 5 mg PO BID [facility] Last Admin: 12/16/23 08:13 Dose: 5 mg Documented By: TANO Benzocaine (Throat Lozenge, Medicated Lozenge) 1 lozenge MUCOUS MEM Q2H PRN PRN Reason: Sore Throat Last Admin: 12/15/23 09:28 Dose: 1 lozenge Documented By: TANO Cyclobenzaprine HCl (Cyclobenzaprine Hcl 5 Mg Tablet) 5 mg PO BEDTIME [facility] Last Admin: 12/15/23 21:01 Dose: 5 mg Documented By: HUGH Diltiazem HCl (Diltiazem Hcl Cd 240 Mg Cap.Er.Deg) 240 mg PO DAILY [facility]; Protocol Last Admin: 12/11/23 08:39 Dose: 240 mg Documented By: IVIS Diltiazem HCl (Diltiazem Hcl 30 Mg Tablet) 90 mg PO QID [facility]; Protocol Last Admin: 12/16/23 08:15 Dose: 90 mg Documented By: TANO Docusate Sodium (Docusate Sodium 100 Mg Capsule) 100 mg PO BID PRN PRN Reason: constipation Last Admin: 12/02/23 13:16 Dose: 100 mg Documented By: JAMEY Fluticasone/Vilanterol (Fluticasone/Vilanterol 100/25 Blst.W.Dev) 1 puff INHALE RDAILY [facility] Last Admin: 12/16/23 07:06 Dose: 1 puff Documented By: ISABELLE Furosemide (Furosemide 40 Mg Tablet) 40 mg PO BID@0900,1800 [facility]; Protocol Last Admin: 12/16/23 08:15 Dose: 40 mg Documented By: TANO Gabapentin (Gabapentin 100 Mg Capsule) 100 mg PO TID [facility] Last Admin: 12/16/23 08:15 Dose: 100 mg Documented By: TANO Glucose (Glucose Gel 15 Gm Gel..Gram.) 15 gm PO Q15M PRN; Protocol PRN Reason: per Hypoglycemia Standing Ord. Guaifenesin/Dextromethorphan (Guaifenesin Dm 600/30 1 Tab Tab.Er.12h) 1 tab PO BID [facility] Last Admin: 12/16/23 08:14 Dose: 1 tab Documented By: TANO Insulin Glargine (Insulin Glargine,Hum.Rec.Anlog 100 Unit/Ml 10 Ml Vial) 21 unit SUBCUT BEDTIME [facility] Last Admin: 12/15/23 21:01 Dose: 21 unit Documented By: HUGH Insulin Human Lispro (Insulin Lispro 100 Unit/Ml 3 Ml Vial) 0 unit SUBCUT QIDACHS [facility]; Protocol Last Admin: 12/16/23 08:16 Dose: 8 unit Documented By: TANO Insulin Human Lispro (Insulin Lispro 100 Unit/Ml 3 Ml Vial) 2.5 unit SUBCUT QIDACHS [facility] Ipratropium [place] (Ipratropium [place] 0.5 Mg/2.5 Ml Solution) 0.5 mg INHALE RQ4H WHILE AWAKE [facility] Last Admin: 12/16/23 07:05 Dose: 0.5 mg Documented By: ISABELLE Levalbuterol HCl (Levalbuterol Hcl 1.25 Mg/3 Ml Vial.Neb) 1.25 mg INHALE RTID [facility] Last Admin: 12/16/23 07:05 Dose: 1.25 mg Documented By: ISABELLE Lidocaine (Lidocaine 4 % Patch Adh..Patch) 1 patch TRANSDERMA DAILY [facility]; Protocol Last Admin: 12/16/23 08:12 Dose: 1 patch Documented By: TANO Lorazepam (Lorazepam 2 Mg/Ml Vial) 1 mg IM ONCE PRN PRN Reason: anxiety/restlessness Nicotine (Nicotine 14 Mg Patch.Td24) 14 mg TRANSDERMA DAILY [facility] Last Admin: 12/16/23 08:13 Dose: 14 mg Documented By: TANO Nystatin (Nystatin Oral Susp 500,000 Unit/5 Ml Oral.Susp) 500,000 unit PO QID [facility]; Protocol Last Admin: 12/16/23 08:13 Dose: 500,000 unit Documented By: TANO Omeprazole (Omeprazole 20 Mg Capsule.) 20 mg PO BID@0630,1630 [facility] Last Admin: 12/16/23 06:26 Dose: 20 mg Documented By: SUKUMAR Ondansetron HCl (Ondansetron Hcl 4 Mg/2 Ml Vial) 4 mg IVPUSH Q8H PRN PRN Reason: Nausea and Vomiting Last Admin: 11/12/23 20:05 Dose: 4 mg Documented By: BRAD Paroxetine HCl (Paroxetine Hcl 20 Mg Tablet) 20 mg PO DAILY@0900 [facility] Last Admin: 12/16/23 08:14 Dose: 20 mg Documented By: TANO Prednisone (Prednisone 10 Mg Tablet) 30 mg PO DAILY [facility] Last Admin: 12/16/23 08:15 Dose: 30 mg Documented By: TANO Sodium Chloride (0.9 % Sodium Chloride Flush 3 Ml Syringe) 3 ml IVFLUSH QSHIFT [facility] Last Admin: 12/16/23 08:13 Dose: 3 ml Documented By: TANO Labs 12/13/23 08:41 12/15/23 06:09 Labs: Laboratory Results - last 24 hr 12/15/23 12/15/23 12/15/23 11:09 15:59 20:42 POC Glucose 253 H 398 H* 390 H* 12/16/23 07:33 POC Glucose 255 H Assessment and Plan (1) Multifocal atrial tachycardia: Status: Acute Plan 78yo F with PAF on apixaban, COPD not on hO2, gout, HF with unknown EF, and DM2. presented with AMS, admitted for hypoxia due to CAP + COPD. developed worsening hypoxia due to aspiration and intubated on 11/13/23 . extubated 11/14/23 and stepped down to telemetry 11/15/23. developed LGIB + CHF/COPD exacerbations. still on HFNC but gradually weaning Restlessness, increase anxiety with narcotic seeking behaviour/chronic back pain IV Morphine discontinued, last dose 12/08 on Oxycodone during this hospital stay, continue PRN and decrease to Q8 was on gabapentin and flexeril at baseline Will start low-dose gabapentin and up titrate as needed, monitor for sedation encourage oob to chair E.Coli UTI s/p 7 days of rocephin AFib RVR PO Cardizem QID to 90mg Continue amiodarone and eliquis Xopenex Cardiology suggests palliative care if can not control as ablation is the treatment to go patient does not want palliative care Acute hypoxic respiratory failure due to acute/chronic HFpEF, acute COPD exacerbation and aspiration pneumonia required intubation and ICU admission 11/13/23, extubated 12/03 and tx to [facility] floor 11/16/23 on 2L supplemental oxygen Acute HFpEF diuressed with IV Lasix and to date negative 18 L oral Lasix 40 mg bid 12/12 COPD exacerbation Has been on steroid for nearly entire hospital stay. Prednisone, taper down, on 30 mg continue duonebs, IS cxr todfay improved from previous Aspiration pneumonia/Enterococcus faecalis bacteremia positive BCx 10/29, was on azithro 10/30-11/04, vanco 10/30-10/31, ceftriaxone 10/31-11/01, pip-don 11/01- and again 11/12-11/22, dapto 11/06-11/12. s/p Total 21d antibiotics Dysphagia MBS 12/02 silent aspiration [employer] rec NDD3, [place] thick liquid, meds whole with puree ABLA d/t LGIB resolved. DM2 with steroid-induced hyperglycemia hyperglycemia overall improved. ss, lantus Hypokalemia replaced and resolved. Hypernatremia resolved Pancreatic abnormality MRI: showed no pancreatic masses; changing pancreatic duct caliber with distal atrophy and ductal tortuosity and dilation, possible stricture. Distended gallbladder with sludge and small stones, common bile duct 1.4 cm with no intraductal defects, moderate intrahepatic biliary ductal dilation possibly due to biliary dyskinesia. No abdominal pain, normal LFTs. Per GI, no aggressive invasive procedures recommended as the patient is asymptomatic. moderate protein/oscar malnutrition supplements thrombocytopenia from acute illness resolved Gout Allopurinol Mood disorder Paroxetine Urinary retention 12/04 persistent after multiple straight cath, s/p [place] placement Has not been participating in PT, but will need rehab vs jail care CODE STATUS: DNR/DNI Goals of care-attempted to discuss palliative care/hospice. Patient is not currently willing to accept these services. She does agree that she wants to be DNR/DNI DVT PPx; [place] Attending Dr. Dumont reason for continued hospitalization: Restlessness and narcotic withdrawal Quality Stroke Does the patient have a stroke diagnosis?: No VTE Prior VTE?: No VTE Risk Level:: Medical - moderate - high VTE Device Contraindication: Treatment Not Indicated VTE Drug Contraindication: N/A - Med Ordered
[2023-12-16 11:53] LABS: Glucose, Whole Blood 286 mg/dL (60-115)
[2023-12-16 16:19] LABS: Glucose, Whole Blood 306 mg/dL (60-115)
[2023-12-16 21:16] LABS: Glucose, Whole Blood 366 mg/dL (60-115)
[2023-12-16] MEDS: Cyclobenzaprine HCl 5 MG TABLET PO (21:31)
[2023-12-16] MEDS: Insulin Glargine,Hum.rec.anlog 100 UNIT/ML 10 ML VIAL 21 UNIT SUBCUT (21:32)
[2023-12-17] VITALS (13 sets, daily range): BP systolic 119–147; BP diastolic 53–76; PULSE 86–124; RESP 19–24; TEMP 36.1–36.9; O2SAT 87–99; BMI 33.2
[2023-12-17] MEDS: Omeprazole 20 MG CAPSULE.DR PO ×2 (06:16→15:37)
[2023-12-17 06:20] LABS: Hematocrit 31.7 % (37.0-47.0); Hemoglobin 9.8 g/dl (12.0-16.0); Mean Corpuscular HGB Conc 30.9 g/dl (31.0-35.0); Mean Corpuscular Hemoglobin 30.5 pg (27.0-33.0); Mean Corpuscular Volume 98.8 fL (80.0-98.0); Mean Platelet Volume 10.5 fL (9.4-12.3); Platelet Count 201 X10*3/uL (160-400); Red Blood Count 3.21 X10*6/uL (4.20-5.50); Red Cell Distribution Width 17.9 % (11.0-16.0); White Blood Count 8.1 X10*3/uL (4.8-10.8)
[2023-12-17 06:41] LABS: Anion Gap 12 (12-20); Blood Urea Nitrogen 33 mg/dL (9-16); Calcium 9.5 mg/dL (8.4-10.2); Carbon Dioxide 36 mmol/L (22-29); Chloride 99 mmol/L (96-108); Creatinine Clr Calc Pharmacy 81.4; Estimated Glomerular Filt Rate > 60; Glucose Random 134 mg/dL (60-115); Potassium 3.3 mmol/L (3.3-5.1); Sodium 144 mmol/L (135-145)
[2023-12-17 07:24] LABS: Glucose, Whole Blood 152 mg/dL (60-115)
[2023-12-17] MEDS: Insulin Lispro 100 UNIT/ML 3 ML VIAL SUBCUT ×8 (08:04→21:19)
[2023-12-17] MEDS: PARoxetine HCL 20 MG TABLET PO (08:05)
[2023-12-17] MEDS: dilTIAZem HCL 30 MG TABLET 90 MG PO ×4 (08:05→20:28)
[2023-12-17] MEDS: guaiFENesin DM 600/30 1 TAB TAB.ER.12H PO ×2 (08:05→20:27)
[2023-12-17] MEDS: Apixaban 5 MG TABLET PO ×2 (08:05→20:27)
[2023-12-17] MEDS: predniSONE 10 MG TABLET 30 MG PO (08:05)
[2023-12-17] MEDS: Nicotine 14 MG PATCH.TD24 TRANSDERMA (08:06)
[2023-12-17] MEDS: Lidocaine 4 % Patch ADH..PATCH 1 PATCH TRANSDERMA (08:06)
[2023-12-17] MEDS: Amiodarone HCL 200 MG TABLET PO (08:06)
[2023-12-17] MEDS: allopurinoL 300 MG TABLET 150 MG PO (08:06)
[2023-12-17] MEDS: Gabapentin 100 MG CAPSULE PO ×3 (08:06→20:27)
[2023-12-17] MEDS: Nystatin Oral Susp 500,000 UNIT/5 ML ORAL.SUSP 500000 UNIT PO ×3 (08:06→20:28)
[2023-12-17] MEDS: Furosemide 40 MG TABLET PO ×2 (08:07→17:07)
[2023-12-17] MEDS: 0.9 % Sodium Chloride Flush 3 ML SYRINGE IVFLUSH ×3 (08:07→20:30)
[2023-12-17] MEDS: oxyCODONE HCl Immed Release 5 MG TABLET PO ×2 (08:10→17:17)
[2023-12-17] MEDS: Ipratropium Bromide 0.5 MG/2.5 ML SOLUTION INHALE ×4 (08:51→21:10)
[2023-12-17] MEDS: levalbuterol HCL 1.25 MG/3 ML VIAL.NEB INHALE ×3 (08:51→21:10)
[2023-12-17] MEDS: Fluticasone/Vilanterol 100/25 BLST.W.DEV 1 PUFF INHALE (08:51)
--- NOTE | 2023-12-17 09:25 | P.PNIM_ITS ---
Subjective Subjective Date of Service: 12/17/23 Interval History: Seen and examined this morning Follow-up for multiple issues Patient was calm and cooperative during evaluation this morning. She denies any shortness of breath and states that her breathing is at her baseline although she does not typically use oxygen Review of Systems Review of Systems: Yes all other systems are reviewed and are negative Constitutional Constitutional: Denies fever(s) Cardiovascular Cardiovascular: Denies chest pain Physical Exam 2 Vital Signs: Vital Signs: Last Vital Signs Temp 97 F 12/17/23 08:00 Pulse 102 H 12/17/23 08:51 Resp 19 12/17/23 08:51 BP 119/67 12/17/23 08:00 Pulse Ox 95 12/17/23 08:00 O2 Del Method Nasal Cannula 12/17/23 08:00 O2 Flow Rate 2 12/17/23 08:00 FiO2 40 12/02/23 04:00 Oxygen Flow Rate 2 11/10/23 07:30 BMI result Body Mass Index 33.2 Appearing in no acute distress lung sounds rhonchi heart regular rate rhythm, clear S1, S2 positive bowel sounds, abdomen is soft, nontender neuro patient is alert x3, no focal deficits Objective Data Active Medications Acetaminophen (Acetaminophen 325 Mg Tablet) 975 mg PO Q6H PRN PRN Reason: mild pain, headache or fever Last Admin: 12/15/23 06:09 Dose: 975 mg Documented By: JOE Allopurinol (Allopurinol 300 Mg Tablet) 150 mg PO DAILY [facility] Last Admin: 12/17/23 08:06 Dose: 150 mg Documented By: OLGA Amiodarone HCl (Amiodarone Hcl 200 Mg Tablet) 200 mg PO DAILY [facility] Last Admin: 12/17/23 08:06 Dose: 200 mg Documented By: OLGA Apixaban (Apixaban 5 Mg Tablet) 5 mg PO BID [facility] Last Admin: 12/17/23 08:05 Dose: 5 mg Documented By: OLGA Benzocaine (Throat Lozenge, Medicated Lozenge) 1 lozenge MUCOUS MEM Q2H PRN PRN Reason: Sore Throat Last Admin: 12/15/23 09:28 Dose: 1 lozenge Documented By: TANO Cyclobenzaprine HCl (Cyclobenzaprine Hcl 5 Mg Tablet) 5 mg PO BEDTIME [facility] Last Admin: 12/16/23 21:31 Dose: 5 mg Documented By: BRIA Diltiazem HCl (Diltiazem Hcl Cd 240 Mg Cap.Er.Deg) 240 mg PO DAILY [facility]; Protocol Last Admin: 12/11/23 08:39 Dose: 240 mg Documented By: IVIS Diltiazem HCl (Diltiazem Hcl 30 Mg Tablet) 90 mg PO QID [facility]; Protocol Last Admin: 12/17/23 08:05 Dose: 90 mg Documented By: OLGA Docusate Sodium (Docusate Sodium 100 Mg Capsule) 100 mg PO BID PRN PRN Reason: constipation Last Admin: 12/02/23 13:16 Dose: 100 mg Documented By: JAMEY Fluticasone/Vilanterol (Fluticasone/Vilanterol 100/25 Blst.W.Dev) 1 puff INHALE RDAILY [facility] Last Admin: 12/17/23 08:51 Dose: 1 puff Documented By: MIKAYLA Furosemide (Furosemide 40 Mg Tablet) 40 mg PO BID@0900,1800 [facility]; Protocol Last Admin: 12/17/23 08:07 Dose: 40 mg Documented By: OLGA Gabapentin (Gabapentin 100 Mg Capsule) 100 mg PO TID [facility] Last Admin: 12/17/23 08:06 Dose: 100 mg Documented By: OLGA Glucose (Glucose Gel 15 Gm Gel..Gram.) 15 gm PO Q15M PRN; Protocol PRN Reason: per Hypoglycemia Standing Ord. Guaifenesin/Dextromethorphan (Guaifenesin Dm 600/30 1 Tab Tab.Er.12h) 1 tab PO BID [facility] Last Admin: 12/17/23 08:05 Dose: 1 tab Documented By: OLGA Insulin Glargine (Insulin Glargine,Hum.Rec.Anlog 100 Unit/Ml 10 Ml Vial) 21 unit SUBCUT BEDTIME [facility] Last Admin: 12/16/23 21:32 Dose: 21 unit Documented By: BRIA Comments: Dr. Pal notified of POC Insulin Human Lispro (Insulin Lispro 100 Unit/Ml 3 Ml Vial) 0 unit SUBCUT QIDACHS [facility]; Protocol Last Admin: 12/17/23 08:04 Dose: 4 unit Documented By: OLGA Insulin Human Lispro (Insulin Lispro 100 Unit/Ml 3 Ml Vial) 2.5 unit SUBCUT QIDACHS [facility] Last Admin: 12/17/23 08:04 Dose: 2.5 unit Documented By: OLGA Ipratropium [place] (Ipratropium [place] 0.5 Mg/2.5 Ml Solution) 0.5 mg INHALE RQ4H WHILE AWAKE [facility] Last Admin: 12/17/23 08:51 Dose: 0.5 mg Documented By: MIKAYLA Levalbuterol HCl (Levalbuterol Hcl 1.25 Mg/3 Ml Vial.Neb) 1.25 mg INHALE RTID [facility] Last Admin: 12/17/23 08:51 Dose: 1.25 mg Documented By: MIKAYLA Lidocaine (Lidocaine 4 % Patch Adh..Patch) 1 patch TRANSDERMA DAILY [facility]; Protocol Last Admin: 12/17/23 08:06 Dose: 1 patch Documented By: OLGA Lorazepam (Lorazepam 2 Mg/Ml Vial) 1 mg IM ONCE PRN PRN Reason: anxiety/restlessness Nicotine (Nicotine 14 Mg Patch.Td24) 14 mg TRANSDERMA DAILY [facility] Last Admin: 12/17/23 08:06 Dose: 14 mg Documented By: OLGA Nystatin (Nystatin Oral Susp 500,000 Unit/5 Ml Oral.Susp) 500,000 unit PO QID [facility]; Protocol Last Admin: 12/17/23 08:06 Dose: 500,000 unit Documented By: OLGA Omeprazole (Omeprazole 20 Mg Capsule.) 20 mg PO BID@0630,1630 [facility] Last Admin: 12/17/23 06:16 Dose: 20 mg Documented By: BRIA Ondansetron HCl (Ondansetron Hcl 4 Mg/2 Ml Vial) 4 mg IVPUSH Q8H PRN PRN Reason: Nausea and Vomiting Last Admin: 11/12/23 20:05 Dose: 4 mg Documented By: BRAD Oxycodone HCl (Oxycodone Hcl Immed Release 5 Mg Tablet) 5 mg PO Q8H PRN PRN Reason: Pain, Severe (Pain Scale 7-10) Last Admin: 12/17/23 08:10 Dose: 5 mg Documented By: OLGA Paroxetine HCl (Paroxetine Hcl 20 Mg Tablet) 20 mg PO DAILY@0900 [facility] Last Admin: 12/17/23 08:05 Dose: 20 mg Documented By: OLGA Prednisone (Prednisone 10 Mg Tablet) 30 mg PO DAILY [facility] Stop: 12/17/23 23:59 Last Admin: 12/17/23 08:05 Dose: 30 mg Documented By: OLGA Prednisone (Prednisone 20 Mg Tablet) 20 mg PO DAILY [facility] Stop: 12/22/23 08:59 Sodium Chloride (0.9 % Sodium Chloride Flush 3 Ml Syringe) 3 ml IVFLUSH QSHIFT [facility] Last Admin: 12/17/23 08:07 Dose: 3 ml Documented By: OLGA Labs 12/17/23 05:54 12/17/23 05:54 Labs: Laboratory Results - last 24 hr 12/16/23 12/16/23 12/16/23 11:42 16:09 21:06 MCV MCH MCHC RDW Plt Count MPV Absolute Nucleated RBC Nucleated RBC % (auto) Anion Gap Estim Creat Clear Calc Estimated GFR POC Glucose 286 H 306 H 366 H* Random Glucose Calcium 12/17/23 12/17/23 05:54 07:11 MCV 98.8 H MCH 30.5 MCHC 30.9 L RDW 17.9 H Plt Count 201 MPV 10.5 Absolute Nucleated RBC 0.000 Nucleated RBC % (auto) 0.0 Anion Gap 12 Estim Creat Clear Calc 81.4 Estimated GFR > 60 POC Glucose 152 H Random Glucose 134 H Calcium 9.5 Assessment and Plan (1) Multifocal atrial tachycardia: Status: Acute Plan 78 yo F with PAF on apixaban, COPD not on hO2, gout, HF with unknown EF, and DM2. presented with AMS, admitted for hypoxia due to CAP + COPD. developed worsening hypoxia due to aspiration and intubated on 11/13/23 . extubated 11/14/23 and stepped down to telemetry 11/15/23. developed LGIB + CHF/COPD exacerbations. still on HFNC but gradually weaning Restlessness, increase anxiety with narcotic seeking behaviour/chronic back pain IV Morphine discontinued, last dose 12/08 on Oxycodone during this hospital stay, continue PRN and decrease to Q8 was on gabapentin and flexeril at baseline Will start low-dose gabapentin and up titrate as needed, monitor for sedation encourage oob to chair E.Coli UTI s/p 7 days of rocephin AFib RVR PO Cardizem QID to 90mg Continue amiodarone and eliquis Xopenex Cardiology suggests palliative care if can not control as ablation is the treatment to go patient does not want palliative care Acute hypoxic respiratory failure due to acute/chronic HFpEF, acute COPD exacerbation and aspiration pneumonia required intubation and ICU admission 11/13/23, extubated 12/03 and tx to med-tele floor 11/16/23 on 2L supplemental oxygen Acute HFpEF diuressed with IV Lasix and to date negative 18 L oral Lasix 40 mg bid 12/12 COPD exacerbation Has been on steroid for nearly entire hospital stay. Prednisone, taper down, on 30 mg continue duonebs, IS cxr todfay improved from previous Aspiration pneumonia/Enterococcus faecalis bacteremia positive BCx 10/29, was on azithro 10/30-11/04, vanco 10/30-10/31, ceftriaxone 10/31-11/01, pip-don 11/01- and again 11/12-11/22, dapto 11/06-11/12. s/p Total 21d antibiotics Dysphagia MBS 12/02 silent aspiration LUGGER rec NDD3, [place] thick liquid, meds whole with puree ABLA d/t LGIB resolved. DM2 with steroid-induced hyperglycemia hyperglycemia overall improved. ss, lantus Hypokalemia replaced and resolved. Hypernatremia resolved Pancreatic abnormality MRI: showed no pancreatic masses; changing pancreatic duct caliber with distal atrophy and ductal tortuosity and dilation, possible stricture. Distended gallbladder with sludge and small stones, common bile duct 1.4 cm with no intraductal defects, moderate intrahepatic biliary ductal dilation possibly due to biliary dyskinesia. No abdominal pain, normal LFTs. Per GI, no aggressive invasive procedures recommended as the patient is asymptomatic. moderate protein/oscar malnutrition supplements thrombocytopenia from acute illness resolved Gout Allopurinol Mood disorder Paroxetine Urinary retention 12/04 persistent after multiple straight cath, s/p powell placement Has not been participating in PT, but will need rehab vs fdc care CODE STATUS: DNR/DNI Goals of care-attempted to discuss palliative care/hospice. Patient is not currently willing to accept these services. She does agree that she wants to be DNR/DNI DVT PPx; Eliquis Attending Dr. White reason for continued hospitalization: Restlessness and narcotic withdrawal Quality Stroke Does the patient have a stroke diagnosis?: No VTE Prior VTE?: No VTE Risk Level:: Medical - moderate - high VTE Device Contraindication: Treatment Not Indicated VTE Drug Contraindication: N/A - Med Ordered
--- NOTE | 2023-12-17 10:34 | MHC.CM.PN ---
Addendum entered by Sujey Jerome 12/17/23 13:18: This CM met with pt in the room with her granddaughter/HCP Sade, grandson/ASSESSMENT CLINICIAN Rah, great grandson, and daughter/alternate HCP Sanjana (Sanjana on the phone, all others present at bedside). Discharge plan discussed with pt and her family and they are in agreement with her coming home with resumption of [facility] services and family support. Pt requested that she be able to leave later in the day, not early in the morning. Discharge time will be for 4pm tomorrow 12/17. Pts family aware and will be home to receive her. Hospitalist updated. Original Note: EMR reviewed and per MD rounds, pt is medically cleared for discharge. IMM given 12/16. This CM met with pt to address the IMM and discuss discharge plans. Pt became upset and began yelling stating she isn't going to rehab. This CM explained that she is medically cleared and cannot remain at the hospital indefinitely. Pt stated I don't care, I will go home then. This CM will approach pt again once she is calm to discuss and plan her discharge.
[2023-12-17 11:38] LABS: Glucose, Whole Blood 327 mg/dL (60-115)
[2023-12-17] MEDS: Acetaminophen 325 MG TABLET 975 MG PO (12:12)
[2023-12-17 16:33] LABS: Glucose, Whole Blood 302 mg/dL (60-115)
--- NOTE | 2023-12-17 17:07 | MHC.SLORD ---
Speech Language Pathology Order Status: PROPERTY COORDINATOR attempted to see pt today, however pt unavailable when PROPERTY COORDINATOR went to visit. PROPERTY COORDINATOR reached out to case management regarding recommendation for PROPERTY COORDINATOR tx for dysphagia at next level of care. PROPERTY COORDINATOR to see pt tomorrow prior to anticipated d/c.
[2023-12-17] MEDS: Cyclobenzaprine HCl 5 MG TABLET PO (20:27)
[2023-12-17 20:50] LABS: Glucose, Whole Blood 251 mg/dL (60-115)
[2023-12-17] MEDS: Insulin Glargine,Hum.rec.anlog 100 UNIT/ML 10 ML VIAL 21 UNIT SUBCUT (21:18)
[2023-12-18] VITALS (7 sets, daily range): BP systolic 122–164; BP diastolic 60–75; PULSE 52–119; RESP 18–20; TEMP 36.1–36.7; O2SAT 92–100; BMI 33.3
[2023-12-18] MEDS: Omeprazole 20 MG CAPSULE.DR PO (06:13)
[2023-12-18] MEDS: oxyCODONE HCl Immed Release 5 MG TABLET PO ×2 (06:20→15:40)
[2023-12-18] MEDS: Fluticasone/Vilanterol 100/25 BLST.W.DEV 1 PUFF INHALE (07:29)
[2023-12-18] MEDS: levalbuterol HCL 1.25 MG/3 ML VIAL.NEB INHALE ×2 (07:29→12:08)
[2023-12-18] MEDS: Ipratropium Bromide 0.5 MG/2.5 ML SOLUTION INHALE ×2 (07:29→12:08)
[2023-12-18 07:34] LABS: Glucose, Whole Blood 205 mg/dL (60-115)
[2023-12-18] MEDS: Nicotine 14 MG PATCH.TD24 TRANSDERMA (08:20)
[2023-12-18] MEDS: Nystatin Oral Susp 500,000 UNIT/5 ML ORAL.SUSP 500000 UNIT PO ×2 (08:20→12:05)
[2023-12-18] MEDS: Insulin Lispro 100 UNIT/ML 3 ML VIAL SUBCUT ×4 (08:21→12:06)
[2023-12-18] MEDS: predniSONE 20 MG TABLET PO (08:22)
[2023-12-18] MEDS: PARoxetine HCL 20 MG TABLET PO (08:22)
[2023-12-18] MEDS: Furosemide 40 MG TABLET PO (08:22)
[2023-12-18] MEDS: Apixaban 5 MG TABLET PO (08:22)
[2023-12-18] MEDS: guaiFENesin DM 600/30 1 TAB TAB.ER.12H PO (08:22)
[2023-12-18] MEDS: dilTIAZem HCL 30 MG TABLET 90 MG PO ×2 (08:23→12:05)
[2023-12-18] MEDS: Amiodarone HCL 200 MG TABLET PO (08:23)
[2023-12-18] MEDS: Gabapentin 100 MG CAPSULE PO ×2 (08:23→15:08)
[2023-12-18] MEDS: allopurinoL 300 MG TABLET 150 MG PO (08:23)
[2023-12-18] MEDS: Lidocaine 4 % Patch ADH..PATCH 1 PATCH TRANSDERMA (08:24)
[2023-12-18] MEDS: 0.9 % Sodium Chloride Flush 3 ML SYRINGE IVFLUSH (08:30)
--- NOTE | 2023-12-18 11:28 | PM.DS ---
DS: Providers Provider Date of Service: 12/18/23 Date of admission: 10/30/23 20:57 Primary care physician: Ti Thompson PA-C Consults: 11/01/23 13:13 Consult to Infectious Diseases Routine Consulting Provider: Shanti Alejo Reason for consultation: gm pos bacteremia Has provider been notified: No 11/03/23 16:38 Consult to Gastroenterology Routine Consulting Provider: Yoon Schmitz Reason for consultation: bacteremic. pancreatic duct/biliary duct dilation ?panc neck lesion 11/04/23 08:45 Consult to Cardiology Routine Consulting Provider: [facility] Reason for consultation: AF/RVR dilt gtt @ 15/hr 11/06/23 08:52 Consult to Pulmonology Routine Consulting Provider: [facility] Reason for consultation: advanced COPD 11/12/23 08:42 Consult to Pulmonology Routine Consulting Provider: Gene Riley Reason for consultation: atelectasis Has provider been notified: No 11/18/23 09:28 Consult to Gastroenterology Routine Consulting Provider: Deandra Jones Reason for consultation: BRBPR. Eliquis held. Not a scope candidate due to resp failure 11/21/23 06:03 Consult to Gastroenterology Routine Consulting Provider: Dylan More Reason for consultation: Melanotic stools Has provider been notified: No 12/06/23 08:53 Consult to Urology Routine Consulting Provider: Pranav Connors Reason for consultation: Urinary retention Has provider been notified: No 12/08/23 10:23 Addiction Medicine Routine Consulting Provider: Addiction Covering Reason for consultation: Inpatient developed Narcotics abuse and dependece 12/12/23 09:38 Consult to Cardiology Routine Consulting Provider: [facility] Reason for consultation: Afib w RvR for eval and rec. 12/14/23 14:34 Consult to Psychiatry Routine Consulting Provider: Psych Covering Reason for consultation: mood; capacity eval Has provider been notified: No DS: Diagnosis Discharge Diagnosis (1) Multifocal atrial tachycardia: Status: Acute DS: Summary Hospital Course Hospital Course: History and physical as per admitting provider. This is a 78-year-old female with pertinent history of paroxysmal atrial fibrillation on Eliquis, COPD not on home oxygen, gout, congestive heart failure, unspecified EF, gout, insulin-dependent diabetes mellitus who was sent to the emergency department for evaluation of altered mentation. Patient was found to be hypoglycemic as per EMS with blood glucose 32. Patient was given D50 IV with improvement in patient's blood glucose and improvement in mentation. Patient stated that she gave herself 15 units of Lantus in the afternoon. She has been complaining of dyspnea that has been ongoing for about 2 weeks. This has been associated with productive cough with yellowish sputum production. Also has associated wheezing. Admits chills but no documented temperature. No chest discomfort, palpitations, abdominal pain, changes in urinary or bowel habits. In the emergency department, patient was found to be septic and imaging concerning for pneumonia. Also was found to be wheezing and given multiple DuoNeb treatments with IV Solu-medrol. Patient had a very prolonged hospitalization, for the full course please see the electronic medical record Hospital course by discharge diagnosis 78yo F with PAF on apixaban, COPD not on home O2, gout, HFpEF, and DM2. presented with AMS, admitted for hypoxia due to CAP + COPD. developed worsening hypoxia due to aspiration and intubated on 11/13/23 . extubated 11/14/23 and stepped down to telemetry 11/15/23. developed LGIB + CHF/COPD exacerbations. Weaned off high flow oxygen on to 2 liters nc and will be discharged with home oxygen Acute respiratory failure with hypoxia. Multifactorial including acute on chronic heart failure and COPD along with aspiration pneumonia that required intubation. She was treated with IV Lasix and switch to oral Lasix on 12/13/2023. She had been on steroids for most of her hospital stay She has required 1-3 L intermittently. She had a home oxygen evaluation and she will be discharged on 2 L of oxygen with ambulation and at rest. Aspiration pneumonia/Enterococcus faecalis bacteremia. She has completed 21 total days of antibiotics for the bacteremia as recommended by Infectious Disease. During hospitalization patient had diet consisting of [place] thick liquid with NDD 3 diet COPD exacerbation. Required multiple days of steroids. She has now been weaned down to 10 mg. This can be weaned as tolerated over the next several weeks. Acute blood loss anemia due to lower GI bleed. Was seen in consultation by GI who recommended conservative management. Initially her Eliquis was held. However has been re-initiated and her H&H has remained stable. DM type 2 with steroid induced hyperglycemia. Was treated with varying doses of insulin in the hospital. Her most recent regimen is 21 units of Lantus at bedtime and sliding scale for mealtime coverage. Hypokalemia and hyponatremia . Repleted and Resolved Pancreatic abnormality. MRI showed No pancreatic masses; changing pancreatic duct caliber with distal atrophy and ductal tortuosity and dilation, possible stricture. Distended gallbladder with sludge and small stones, common bile duct 1.4 cm with no intraductal defects, moderate intrahepatic biliary ductal dilation possibly due to biliary dyskinesia. No abdominal pain, normal LFTs. Per GI, no aggressive invasive procedures recommended as the patient is asymptomatic. AF/RVR. Difficulty to control, has been on iv cardizem, digoxin IV and eventually loaded with PO amiodarone, HR better. TTE 11/04: LVEF 60-65%, normal right ventricular cavity size and systolic function, no obvious vegetation noted. Continue amiodarone, cardizem changed to 90 mg QID with good effect. continue eliquis. Cardiology suggested palliative care if can not control as ablation is the treatment to go, patient declined palliative care Urinary retention. Patient required straight catheterization multiple times, and hence had a Zafar catheter placed for a short time, but passed voiding trial. E.Coli UTI. s/p 7 days of IV rocephin moderate protein/oscar malnutrition. continue supplements, add protein to diet Thrombocytopenia. from acute illness resolved Gout. Continue Allopurinol Mood disorder. Continue Paroxetine Patient is sent home with paper prescription for walker, wheelchair and commode Time Attestation Discharge Coordination Time (in mins): 50 Quality: Safe Use of Opioids Does Pt have an Active Cancer Diagnosis on the Problem List?: No Quality: Stroke Does the patient have a stroke diagnosis?: No Physical Exam Vital Signs: Vital Signs: Last Vital Signs Temp 97.3 F 12/18/23 08:00 Pulse 53 12/18/23 08:00 Resp 20 12/18/23 08:00 BP 160/71 H 12/18/23 08:00 Pulse Ox 100 12/18/23 08:00 O2 Del Method Room Air 12/18/23 08:00 O2 Flow Rate 2 12/18/23 04:00 FiO2 40 12/02/23 04:00 Oxygen Flow Rate 2 11/10/23 07:30 BMI result Body Mass Index 33.3 Appearing in no acute distress head is normocephalic atraumatic eyes pupils are PERRLA sclera is anicteric mouth throat mucous membranes are intact and moist neck is supple no lymphadenopathy, no JVD noted lung sounds dim with some coarse breath sounds occassionaly heart regular rate rhythm, clear S1, S2 positive bowel sounds, abdomen is soft, nontender neuro patient is alert x3, no focal deficits DS: Data Data Completed and Pending Labs on day of discharge: Laboratory Results - last 24 hr 12/17/23 12/17/23 12/17/23 11:22 16:12 20:37 POC Glucose 327 H 302 H 251 H 12/18/23 07:30 POC Glucose 205 H Discharge Plan Discharge Anticipated Discharge Date/Time: 12/18/23 10:34 Patient Disposition: Home Health Service Discharge Diagnosis: Acute hypoxic respiratory failure, sepsis, pneumonia, chf, gi bleeding, urinary retention Referrals: [facility] [Outside] - 1 Week Murphy Diamond MD [Physician] - 1 Week (Oxygen management) Ti Thompson PA-C [Primary Care Provider] - 1 Week Discharge Medications: New omeprazole 20 mg Capsule,Delayed Release(Dr/Ec) 20 mg PO BID@0630,1630 Qty: 60 0RF insulin lispro [Admelog U-100 Insulin lispro] 100 unit/mL Solution See Protocol subcut [facility] Qty: 10 0RF Protocol: Insulin Correction Scale Less than or equal to 110 ---- Give (units): 0 111 to 150 Give (units): 2 151 to 200 Give (units): 4 201 to 250 Give (units): 6 251 to 300 Give (units): 8 301 to 350 Give (units): 12 Greater than 350 Give (units): 14 Call MD if Blood Glucose > : 350 Rx Instructions: BG <111 0 units, 111-150 - 0 units, 151-200 2 units, 201-250 4 units, 251-300 6 units, 301-350 8 units, >350 10 units Mucus DM 30-600 mg Tablet Extended Release 12 Hr 1 tab PO BID Qty: 60 0RF lidocaine [Lidocaine Pain Relief] 4 % Adhesive Patch,Medicated 1 patch transdermal DAILY Qty: 15 0RF Protocol: Apply to: Apply to: midline lower lumbar area amiodarone 200 mg Tablet 200 mg PO DAILY Qty: 60 0RF (DME) Wheel chair Kit See Rx Instructions .Route Qty: 1 0RF Rx Instructions: As directed (DME) walker Misc See Rx Instructions .Route Qty: 1 0RF Rx Instructions: As directed (DME) commode Kit See Rx Instructions .Route Qty: 1 0RF Rx Instructions: As directed insulin glargine [Lantus Solostar U-100 Insulin] 100 unit/mL (3 mL) insulin pen 20 unit subcut QPM Qty: 15 0RF oxycodone 5 mg tablet 5 mg PO Q8H PRN (Reason: pain) Qty: 21 0RF Rx Instructions: Partial Fill upon patient request. gabapentin 100 mg Capsule 100 mg PO TID Qty: 90 0RF prednisone 10 mg tablet See Taper PO DIRECTED Qty: 15 0RF Taper: Prednisone 20 mg daily for 5 Days and 0 Hour 10 mg daily for 5 Days and 0 Hour Rx Instructions: see taper instructions Continued acetaminophen 500 mg capsule 500 mg PO Q6H PRN (Reason: fever) 30 Days Qty: 120 1RF Eliquis 5 mg tablet 5 mg PO BID 30 Days Qty: 60 6RF furosemide 40 mg tablet 40 mg PO BID Qty: 180 1RF diltiazem HCl 240 mg capsule,extended release 24hr 240 mg PO DAILY 90 Days Qty: 90 2RF docusate sodium 100 mg capsule 100 mg PO BID PRN (Reason: constipation) Qty: 60 1RF allopurinol 300 mg tablet 150 mg PO DAILY Qty: 45 3RF paroxetine HCl 20 mg tablet 20 mg PO QAM Qty: 90 2RF nicotine 14 mg/24 hr patch 24 hour 1 patch topical DAILY cyclobenzaprine 10 mg tablet 10 mg PO TID ipratropium-albuterol 0.5 mg-3 mg(2.5 mg base)/3 mL solution for nebulization 3 ml inhalation Q6H PRN (Reason: shortness of breath or wheezing) Qty: 180 2RF albuterol sulfate 90 mcg/actuation HFA aerosol inhaler 2 puff PO Q4H 30 Days Qty: 8.5 3RF Discontinued famotidine 20 mg tablet 20 mg PO DAILY 90 Days Qty: 90 2RF cyclobenzaprine 10 mg tablet 10 mg PO TID 30 Days Qty: 90 3RF insulin lispro [Admelog SoloStar U-100 Insulin] 100 unit/mL insulin pen 15 unit subcut TID Qty: 15 1RF insulin glargine 100 unit/mL (3 mL) insulin pen 25 unit subcut QAM 30 Days Qty: 15 1RF dextromethorphan-guaifenesin 10-100 mg/5 mL Syrup 10 ml PO TID Qty: 237 0RF Rx Instructions: Take for 3 days and then as needed for cough gabapentin 600 mg tablet 600 mg PO TID gabapentin 600 mg tablet 600 mg PO TID 30 Days Qty: 90 3RF No Action (DME) blood-glucose meter [OneTouch Ultra2 Meter] Kit See Rx Instructions .ROUTE .MEDSUPPLY Qty: 1 0RF Hold Instructions: Doctor's Order Rx Instructions: As directed check the blood sugar TID (DME) hospital bed Kit See Rx Instructions .Route Qty: 1 0RF Rx Instructions: As directed (DME) pen needle, diabetic [BD Ultra-Fine Tamia Pen Needle] 32 gauge x 5/32 needle See Rx Instructions .ROUTE .MEDSUPPLY Qty: 50 3RF Rx Instructions: three times per day (DME) OneTouch Ultra Test Strip See Rx Instructions .Route Qty: 3 0RF Hold Instructions: Doctor's Order Rx Instructions: As directed check blood sugar 3 times a day (DME) lancets Misc See Rx Instructions .ROUTE .MEDSUPPLY Qty: 100 0RF Rx Instructions: As directed check the blood sugar TID (DME) blood-glucose meter [FreeStyle Lite Meter] Kit See Rx Instructions .Route Qty: 1 0RF Rx Instructions: As directed (DME) FreeStyle Lite Strips Strip See Rx Instructions .ROUTE .MEDSUPPLY Qty: 100 3RF Rx Instructions: As directed (DME) lancets [FreeStyle Lancets] 28 gauge misc See Rx Instructions .ROUTE .MEDSUPPLY Qty: 100 3RF Rx Instructions: As directed (DME) FreeStyle Sinan 2 Sensor Kit See Rx Instructions .Route Qty: 1 6RF Rx Instructions: As directed (DME) FreeStyle Sinan 2 [place] Misc See Rx Instructions .Route Qty: 1 6RF Rx Instructions: As directed Discharge Orders: Discharge Order (Routine); Ordered 12/18/23 Ordered By: Randi Riley Diet: NDD3/[place] thick Activity on Discharge: As tolerated Stand Alone Forms: Patient Portal Discharge page Print Language: Urdu Care Plan Goals: You will be sent home with oxygen, please do not use around flammable items Health Concerns: Acute hypoxic respiratory failure, sepsis, pneumonia, chf, gi bleeding, urinary retention Plan of Treatment: Follow up with primary care provider as needed Take all medications as prescribed Assessment: See discharge summary Patient Instructions: Amiodarone (By mouth), Oxycodone, Rapid Release (By mouth), Omeprazole/Sodium Bicarbonate (By mouth)
--- NOTE | 2023-12-18 11:28 | MHC.CM.PN ---
Addendum entered by Sujey Jerome 12/18/23 14:34: Per [facility] they will provide the following services to pt at home: SN, PT, OT, CHEESE SUPERVISOR, and SW. Original Note: Pt is medically cleared for discharge home with resumption of [facility] services, and new home O2, family support ([employer] SERVICES CONSULTANT services provided by pts grandson and daughter). Pt will transport home via [facility] today at 4pm.
[2023-12-18 11:43] LABS: Glucose, Whole Blood 193 mg/dL (60-115)
== END 2023-12-18 16:25 | disposition home health service (06) | DRG 871 ==
LOC: HO.ED 20:18 → HO.EDOVER 21:07 → HO.S3 10-31 19:15 → HO.IMC 11-03 16:19 → HO.ICU 11-13 11:45 → HO.IMC 11-15 11:15
PROVIDERS: Family Medicine; Hospitalist; Internal Medicine; Internal Medicine Critical Care Medicine; Internal Medicine Gastroenterology; Internal Medicine Pulmonary Disease; Physician Assistant; Physician Assistant Medical; Student in an Organized Health Care Education/Training Program; Admitting Provider Student in an Organized Health Care Education/Training Program; Emergency Provider Emergency Medicine Emergency Medical Services; PCP Physician Assistant; Visit Provider Nurse Practitioner Acute Care
DX: A41.81 Sepsis due to Enterococcus (principal); G93.41 Metabolic encephalopathy; J96.01 Acute respiratory failure with hypoxia; I50.33 Acute on chronic diastolic (congestive) heart failure; R57.0 Cardiogenic shock; J69.0 Pneumonitis due to inhalation of food and vomit; R65.21 Severe sepsis with septic shock; N39.0 Urinary tract infection, site not specified; J44.1 Chronic obstructive pulmonary disease with (acute) exacerbation; Z68.41 Body mass index [BMI] 40.0-44.9, adult; J98.11 Atelectasis; I47.19 Other supraventricular tachycardia; E87.3 Alkalosis; B37.0 Candidal stomatitis; E44.0 Moderate protein-calorie malnutrition; D62 Acute posthemorrhagic anemia; K62.5 Hemorrhage of anus and rectum; E87.0 Hyperosmolality and hypernatremia; E11.65 Type 2 diabetes mellitus with hyperglycemia; I48.0 Paroxysmal atrial fibrillation; E03.8 Other specified hypothyroidism; T46.0X5A Adverse effect of cardiac-stimulant glycosides and drugs of similar action, initial encounter; T47.0X5A Adverse effect of histamine H2-receptor blockers, initial encounter; G89.29 Other chronic pain; F39 Unspecified mood [affective] disorder; Z66 Do not resuscitate; E66.01 Morbid (severe) obesity due to excess calories; D64.9 Anemia, unspecified; D69.59 Other secondary thrombocytopenia; E11.649 Type 2 diabetes mellitus with hypoglycemia without coma; K82.8 Other specified diseases of gallbladder; R33.9 Retention of urine, unspecified; R13.10 Dysphagia, unspecified; E87.6 Hypokalemia; B96.20 Unspecified Escherichia coli [E. coli] as the cause of diseases classified elsewhere; M54.50 Low back pain, unspecified; M10.9 Gout, unspecified; Z20.822 Contact with and (suspected) exposure to COVID-19; Z76.5 Malingerer [conscious simulation]; Z87.891 Personal history of nicotine dependence; Z71.3 Dietary counseling and surveillance; Z79.4 Long term (current) use of insulin; Z79.01 Long term (current) use of anticoagulants; Z79.899 Other long term (current) drug therapy
CPT/HCPCS: 0241U; 36410; 36415; 36600; 71045; 71250; 74176; 74177; 74183; 74230; 80048; 80053; 80076; 80162; 80202; 80307; 81001; 81003; 82010; 82040; 82088; 82140; 82272; 82550; 82565; 82803; 82947; 83605; 83735; 83880; 84100; 84145; 84244; 84439; 84443; 84484; 85014; 85018; 85025; 85027; 85379; 85384; 85610; 86850; 86870; 86885; 86900; 86901; 86902; 86920; 86922; 87040; 87070; 87077; 87086; 87088; 87186; 87205; 87493; 87507; 87633; 92526; 92610; 92611; 92950; 93005; 93306; 94002; 94003; 94640; 94660; 94664; 94799; 97116; 97161; 97162; 97530; 99285; A9585; C1751; C1758; C1894; C9113; J0131; J0282; J0283; J0295; J0330; J0456; J0696; J0878; J1120; J1160; J1170; J1364; J1642; J1885; J1940; J2020; J2060; J2250; J2270; J2354; J2359; J2405; J2543; J2704; J2919; J3370; J3430; J3475; J3480; P9016; P9047; Q9957; Q9967

== ENCOUNTER → 2023-10-30 18:52 | Outpatient (BNV) | payer OTHER, SELFPAY | PROVIDERS: Admitting Provider Student in an Organized Health Care Education/Training Program; Emergency Provider Emergency Medicine Emergency Medical Services; PCP Physician Assistant; Visit Provider Internal Medicine Cardiovascular Disease | DX: R06.00 Dyspnea, unspecified (principal) | CPT/HCPCS: 93010 ==

== ENCOUNTER 2023-10-30 20:57 | Outpatient (BNV) | payer OTHER, SELFPAY | END 2023-12-03 14:35 | PROVIDERS: Admitting Provider Student in an Organized Health Care Education/Training Program; Emergency Provider Emergency Medicine Emergency Medical Services; PCP Physician Assistant; Visit Provider Physician Assistant Surgical | DX: R13.10 Dysphagia, unspecified (principal) | CPT/HCPCS: 74230 ==

== ENCOUNTER 2023-10-30 20:57 | Outpatient (BNV) | payer OTHER, SELFPAY | END 2023-11-05 07:00 | PROVIDERS: Admitting Provider Student in an Organized Health Care Education/Training Program; Emergency Provider Emergency Medicine Emergency Medical Services; PCP Physician Assistant; Visit Provider Internal Medicine Cardiovascular Disease | DX: R78.81 Bacteremia (principal) | CPT/HCPCS: 93010; 93306 ==

== ENCOUNTER 2023-10-30 20:57 | Outpatient (BNV) | payer OTHER, SELFPAY | END 2023-11-24 21:11 | PROVIDERS: Admitting Provider Student in an Organized Health Care Education/Training Program; Emergency Provider Emergency Medicine Emergency Medical Services; PCP Physician Assistant; Visit Provider Internal Medicine | DX: R00.0 Tachycardia, unspecified (principal); I49.1 Atrial premature depolarization; I45.19 Other right bundle-branch block; R94.31 Abnormal electrocardiogram [ECG] [EKG] | CPT/HCPCS: 93010 ==

== ENCOUNTER 2023-10-30 20:57 | Outpatient (BNV) | payer OTHER, SELFPAY | END 2023-12-03 20:19 | PROVIDERS: Admitting Provider Student in an Organized Health Care Education/Training Program; Emergency Provider Emergency Medicine Emergency Medical Services; PCP Physician Assistant; Visit Provider Internal Medicine Cardiovascular Disease | DX: I48.0 Paroxysmal atrial fibrillation (principal); R00.0 Tachycardia, unspecified; R94.31 Abnormal electrocardiogram [ECG] [EKG] | CPT/HCPCS: 93010 ==

== ENCOUNTER 2023-10-30 20:57 | Outpatient (BNV) | payer OTHER, SELFPAY | END 2023-11-17 18:11 | PROVIDERS: Admitting Provider Student in an Organized Health Care Education/Training Program; Emergency Provider Emergency Medicine Emergency Medical Services; PCP Physician Assistant; Visit Provider Internal Medicine Cardiovascular Disease | DX: R07.9 Chest pain, unspecified (principal); I48.0 Paroxysmal atrial fibrillation | CPT/HCPCS: 93010 ==

== ENCOUNTER 2023-10-30 20:57 | Outpatient (BNV) | payer OTHER, SELFPAY | END 2023-11-03 15:45 | PROVIDERS: Admitting Provider Student in an Organized Health Care Education/Training Program; Emergency Provider Emergency Medicine Emergency Medical Services; PCP Physician Assistant; Visit Provider Internal Medicine Cardiovascular Disease | DX: R07.9 Chest pain, unspecified (principal); I49.1 Atrial premature depolarization | CPT/HCPCS: 93010 ==

== ENCOUNTER 2023-10-30 20:57 | Outpatient (BNV) | payer OTHER, SELFPAY | END 2023-11-06 02:31 | PROVIDERS: Admitting Provider Student in an Organized Health Care Education/Training Program; Emergency Provider Emergency Medicine Emergency Medical Services; PCP Physician Assistant; Visit Provider Internal Medicine | DX: R07.9 Chest pain, unspecified (principal); I49.1 Atrial premature depolarization | CPT/HCPCS: 93010 ==

== ENCOUNTER 2023-10-30 20:57 | Outpatient (BNV) | payer OTHER, SELFPAY | END 2023-12-09 19:58 | PROVIDERS: Admitting Provider Student in an Organized Health Care Education/Training Program; Emergency Provider Emergency Medicine Emergency Medical Services; PCP Physician Assistant; Visit Provider Internal Medicine | DX: R00.0 Tachycardia, unspecified (principal); R94.31 Abnormal electrocardiogram [ECG] [EKG] | CPT/HCPCS: 93010 ==

== ENCOUNTER → 2023-10-30 20:57 | Outpatient (BNV) | payer OTHER, SELFPAY | PROVIDERS: Admitting Provider Student in an Organized Health Care Education/Training Program; Emergency Provider Emergency Medicine Emergency Medical Services; PCP Physician Assistant; Visit Provider Student in an Organized Health Care Education/Training Program | DX: I47.19 Other supraventricular tachycardia (principal) | CPT/HCPCS: 92950; 99223; 99232; 99233; 99239; 99499 ==

== ENCOUNTER → 2023-10-30 20:57 | Outpatient (BNV) | payer OTHER, SELFPAY | PROVIDERS: Admitting Provider Student in an Organized Health Care Education/Training Program; Emergency Provider Emergency Medicine Emergency Medical Services; PCP Physician Assistant; Visit Provider Urology | DX: T83.511A Infection and inflammatory reaction due to indwelling urethral catheter, initial encounter (principal); N39.0 Urinary tract infection, site not specified; R39.81 Functional urinary incontinence | CPT/HCPCS: 99222 ==

== ENCOUNTER → 2023-10-30 20:57 | Outpatient (BNV) | payer OTHER, SELFPAY | PROVIDERS: Admitting Provider Student in an Organized Health Care Education/Training Program; Emergency Provider Emergency Medicine Emergency Medical Services; PCP Physician Assistant; Visit Provider Internal Medicine Pulmonary Disease | DX: J81.1 Chronic pulmonary edema (principal); J96.01 Acute respiratory failure with hypoxia | CPT/HCPCS: 99222; 99232; 99233 ==

== ENCOUNTER → 2023-10-30 20:57 | Outpatient (BNV) | payer OTHER, SELFPAY | PROVIDERS: Admitting Provider Student in an Organized Health Care Education/Training Program; Emergency Provider Emergency Medicine Emergency Medical Services; PCP Physician Assistant; Visit Provider Internal Medicine Cardiovascular Disease | DX: I47.19 Other supraventricular tachycardia (principal); I48.91 Unspecified atrial fibrillation; J96.01 Acute respiratory failure with hypoxia | CPT/HCPCS: 99222; 99233 ==

== ENCOUNTER → 2023-10-30 20:57 | Outpatient (BNV) | payer OTHER, SELFPAY | PROVIDERS: Admitting Provider Student in an Organized Health Care Education/Training Program; Emergency Provider Emergency Medicine Emergency Medical Services; PCP Physician Assistant; Visit Provider Internal Medicine | DX: R78.81 Bacteremia (principal); B95.2 Enterococcus as the cause of diseases classified elsewhere | CPT/HCPCS: 99222; 99232 ==

== ENCOUNTER → 2023-10-30 20:57 | Outpatient (BNV) | payer OTHER, SELFPAY | PROVIDERS: Admitting Provider Student in an Organized Health Care Education/Training Program; Emergency Provider Emergency Medicine Emergency Medical Services; PCP Physician Assistant; Visit Provider Internal Medicine Gastroenterology | DX: J41.0 Simple chronic bronchitis (principal); R06.89 Other abnormalities of breathing; I48.0 Paroxysmal atrial fibrillation; I50.32 Chronic diastolic (congestive) heart failure; R78.81 Bacteremia; B95.2 Enterococcus as the cause of diseases classified elsewhere; K92.2 Gastrointestinal hemorrhage, unspecified; D64.9 Anemia, unspecified; D69.6 Thrombocytopenia, unspecified | CPT/HCPCS: 99223; 99233 ==

== ENCOUNTER → 2023-10-30 20:57 | Outpatient (BNV) | payer OTHER, SELFPAY | PROVIDERS: Admitting Provider Student in an Organized Health Care Education/Training Program; Emergency Provider Emergency Medicine Emergency Medical Services; PCP Physician Assistant; Visit Provider Internal Medicine Critical Care Medicine | DX: J69.0 Pneumonitis due to inhalation of food and vomit (principal); I48.91 Unspecified atrial fibrillation; J96.01 Acute respiratory failure with hypoxia; G93.40 Encephalopathy, unspecified; R78.81 Bacteremia; B95.2 Enterococcus as the cause of diseases classified elsewhere; K86.9 Disease of pancreas, unspecified; J44.1 Chronic obstructive pulmonary disease with (acute) exacerbation; R41.82 Altered mental status, unspecified | CPT/HCPCS: 31500; 99291 ==

== ENCOUNTER → 2023-10-30 20:57 | Outpatient (BNV) | payer OTHER, SELFPAY | PROVIDERS: Admitting Provider Student in an Organized Health Care Education/Training Program; Emergency Provider Emergency Medicine Emergency Medical Services; PCP Physician Assistant; Visit Provider Nurse Practitioner Psychiatric/Mental Health | DX: F11.20 Opioid dependence, uncomplicated (principal) | CPT/HCPCS: 99221 ==

== ENCOUNTER 2023-12-18 21:03 | Emergency (ER) | payer OTHER, SELFPAY ==
[2023-12-18 21:08] VITALS: BP 162/70; PULSE 54; O2SAT 93
--- NOTE | 2023-12-18 21:15 | ECG_ITS ---
Test Reason : SOB Blood Pressure : / mmHG Vent. Rate : 132 BPM Atrial Rate : 000 BPM P-R Int : 000 ms QRS Dur : 096 ms QT Int : 300 ms P-R-T Axes : 000 -07 077 degrees QTc Int : 444 ms Normal sinus rhythm with frequent PACs vs MAT Nonspecific ST abnormality Abnormal ECG When compared with ECG of 09-DEC-2023 19:58, No significant changes seen Referred By: Ruby Schreiber Electronically Signed By:Naldo Moncada
--- NOTE | 2023-12-18 21:45 | ED_ITS ---
HPI - General Adult General Chief complaint: General Medical Stated complaint: sob,has no home o2,fell onto comode, Time Seen by Provider: 12/18/23 21:11 Source: patient and EMS Mode of arrival: ambulatory Limitations: no limitations History of Present Illness ED Provider: Dr. Ruby Schreiber HPI narrative: Patient comes to the emergency room via ambulance from home. Patient was discharged approximately 4 hours ago from the inpatient floor. Patient had a prolonged hospitalization from 10/30/2023 to in 12/18/2023, for acute hypoxic respiratory failure, sepsis, pneumonia, CHF, GI bleeding and urinary retention. When patient was discharged from the hospital today, patient was given a tank of oxygen, as she is supposed to use 4 L now. When patient got home, patient ran out of oxygen, the services that were set up by the hospital when available to the patient at the time of arrival, patient ran out of oxygen, started becoming short of breath, and came to the hospital. Patient has no new symptoms today. Patient complaining of chronic pain, requesting her oxycodone. Related Data Home Medications ?Medication ?Instructions ?Recorded ?Confirmed nicotine 14 mg/24 hr daily 1 patch topical DAILY 10/30/23 10/30/23 transdermal patch cyclobenzaprine 10 mg tablet 10 mg PO TID 12/13/23 12/13/23 Previous Rx's ?Medication ?Instructions ?Recorded blood-glucose meter (OneTouch #1 ea 01/11/22 Ultra2 Meter kit) blood sugar diagnostic (FreeStyle #100 ea 03/09/22 Lite Strips) blood-glucose meter (FreeStyle #1 ea 03/09/22 Lite Meter kit) lancets 28 gauge (FreeStyle #100 ea 03/09/22 Lancets) flash glucose scanning reader #1 ea 05/29/22 (FreeStyle Sinan 2 Hudson) flash glucose sensor (FreeStyle #1 ea 05/29/22 Sinan 2 Sensor kit) hospital bed #1 ea 12/06/22 acetaminophen 500 mg capsule 500 mg PO Q6H PRN fever 30 days 03/29/23 #120 caps apixaban 5 mg tablet (Eliquis) 5 mg PO BID 30 days #60 tabs 06/12/23 furosemide 40 mg tablet 40 mg PO BID #180 tabs 08/10/23 albuterol sulfate 90 mcg/actuation 2 puff PO Q4H for wheezing 30 days 08/22/23 aerosol inhaler #8.5 grams ipratropium 0.5 mg-albuterol 3 mg 3 ml inhalation Q6H PRN shortness 08/22/23 (2.5 mg base)/3 mL nebulization of breath or wheezing #180 mL soln diltiazem HCl 240 mg 240 mg PO DAILY 90 days #90 caps 08/23/23 capsule,extended release 24 hr docusate sodium 100 mg capsule 100 mg PO BID PRN constipation #60 10/09/23 caps allopurinol 300 mg tablet 150 mg (1/2 x 300 mg) PO DAILY #45 10/10/23 tabs paroxetine HCl 20 mg tablet 20 mg PO QAM #90 tabs 10/24/23 blood sugar diagnostic (OneTouch #3 ea 10/27/23 Ultra Test strips) lancets #100 ea 10/27/23 pen needle, diabetic 32 gauge x #50 ea 10/27/23 (BD Ultra-Fine Tamia Pen Needle) amiodarone 200 mg tablet 200 mg PO DAILY #60 tabs 12/06/23 dextromethorphan-guaifenesin 30 1 tab PO BID #60 tabs 12/06/23 mg-600 mg tablet extended [id number] hr (Mucus DM) insulin lispro 100 unit/mL See Protocol subcut QIDACHS #10 mL 12/06/23 subcutaneous solution (Admelog U-100 Insulin lispro) lidocaine 4 % topical patch 1 patch transdermal DAILY #15 ea 12/06/23 (Lidocaine Pain Relief) omeprazole 20 mg capsule,delayed 20 mg PO BID@0630,1630 #60 caps 12/06/23 release chair, wheel (Wheel chair) #1 ea 12/18/23 commode #1 ea 12/18/23 gabapentin 100 mg capsule 100 mg PO TID #90 caps 12/18/23 insulin glargine 100 unit/mL (3 20 unit (0.2 mL) subcut QPM #15 mL 12/18/23 mL) subcutaneous pen (Lantus Solostar U-100 Insulin) oxycodone 5 mg tablet 5 mg PO Q8H PRN pain #21 tabs 12/18/23 prednisone 10 mg tablet See Taper PO DIRECTED #15 tabs 12/18/23 walker #1 ea 12/18/23 Allergies Allergy/AdvReac Type Severity Reaction Status Date / Time aspirin [Aspirin] Allergy Mild NAUSEA Verified 12/18/23 22:19 codeine [Codeine] Allergy Mild VOMITING Verified 12/18/23 22:19 Review of Systems Review of Systems: Constitutional : No Weight loss, No Fever, No Chills, No Night Sweats, No Fatigue, No Malaise ENT/Mouth : No Hearing loss, No Ear Pain, No Nasal Congestion, No Sinus Pain, No Hoarseness, No sore throat, No Rhinorrhea, No Swallowing Difficulty Eyes: No Eye Pain, No Swelling, No Redness, No Foreign Body, No Discharge, No Vision Changes Cardiovascular : No Chest Pain, No SOB, No Dyspnea on Exertion, No Orthopnea, No Edema, No Palpitations Respiratory : No Cough, No Sputum, No Wheezing, No Smoke Exposure, complaining of shortness of breath secondary to running out of oxygen Gastrointestinal : No Nausea, No Vomiting, No Diarrhea, No Constipation, No abdominal Pain, No Hematochezia, No Melena Genitourinary : no irregular bleeding, No Dysuria, No Urinary Frequency, No Hematuria, No Urinary Incontinence, No Urgency, No Flank Pain, No Urinary Flow Changes, No Hesitancy Musculoskeletal : No joint pain, No Myalgias, No Joint Swelling Skin : No Skin Lesions, No rash Neuro : No Weakness, No Numbness, No Paresthesias, No Loss of Consciousness, No Dizziness, No Headache Psych : No Anxiety/Panic, No Depression, No SI/HI/AH/VH, No Social Issues, Heme/Lymph: No Bruising, No Bleeding,No Lymphadenopathy Endocrine : No Polyuria, No Polydipsia, No Temperature Intolerance [facility] Past Medical History Medical History Atelectasis Bacteremia due to Enterococcus CHF (congestive heart failure) A-fib Diabetes Cough Hypoventilation syndrome Skin cancer of trunk Skin cancer of face COPD (chronic obstructive pulmonary disease) Failed back syndrome Surgical History History of knee surgery History of shoulder surgery History of ankle surgery History of hip surgery Family History Family History Father No problems noted. Mother No problems noted. Daughter Opiate dependence Substance use disorder Family/Other FH: mental illness Mental health disorder Social History Social History Household Members: None Household Members Other:: daughter Housing: Apartment Do you presently have visiting nurse or other home services: Yes Unable to assess alcohol history related to: Unknown Alcohol intake: never Comment: bilateral wrist restraints for airway safety Patient Tobacco Use Status: Former Tobacco user Tobacco use type: Cigarette e-Cigarette/Vaping Use: Never Used Advance Directives: No Advance Directives Information Provided: No Do you have a plan to hurt others: No Plan service: No Current occupational status: retired and disabled Cognitive needs: Yes Hearing needs: No Vision needs: Yes Physical Exam ED Vital Signs: Vital Signs - 24 hr 12/18/23 22:16 12/18/23 22:58 Temperature 98.2 F Pulse Rate 105 H 126 H Respiratory Rate 24 H Blood Pressure 127/53 L 133/58 L Pulse Oximetry 96 Oxygen Delivery Method Nasal Cannula BMI result Body Mass Index 19.6 Const Other: Appearance: Alert. Oriented X3. No acute distress. Eyes: Pupils equal, round and reactive to light. ENT: Pharynx normal. Neck: Normal inspection. Neck supple. No lymph nodes noted. No crepitus CVS: Irregularly irregular, heart rate in the 130s Pulses normal. Normal S1 and S2 Respiratory: No respiratory distress. Breath sounds normal. No Wheezing. No rales Abdomen: Soft and nontender. No rigidity. No distention. Skin: Skin warm and dry. Normal skin color. Normal skin turgor. Extremities: No lower extremity edema. No Lacerations. No Rash Neuro: Oriented X 3. No motor deficit. No sensory deficit. Moving all extremities. No slurred speech. CN 2 through 12 grossly intact Psych: calm, cooperative, normal affect Course Course Course Narrative: -patient does not have any oxygen available to her in her house, therefore came to the emergency room. -as the patient with our medical case worker Randi, seems that there was an issue with respiratory and the oxygen company, we discussed the above-mentioned with our respiratory therapist, seems that they did send a fax but seems that the oxygen company did not get the information -for now, we will keep the patient overnight in the ED, and tomorrow Respiratory therapy team will help to set up the patient's oxygen at home -here in the ED, patient is asymptomatic. However, it was noted that patient's has a heart rate of 132. Patient is in AFib with RVR. Patient has not taken home medications. States that she was discharged late in the afternoon and by the time she got home, her family went to look for her medications polypharmacy was already closed. -patient in the ED in the 130 systolic, heart rate 130-140, patient was given IV Cardizem, patient takes p.o. Cardizem as home medication Medications Administered Discontinued Medications Generic Name Dose Route Start Last Admin Trade Name Freq PRN Reason Stop Dose Admin Diltiazem HCl 60 mg 12/18/23 22:16 12/18/23 22:58 Diltiazem Hcl 60 Mg Tablet PO 12/18/23 22:17 60 mg ONCE ONE Administration Protocol Oxycodone HCl 5 mg 12/18/23 22:47 12/18/23 22:58 Oxycodone Hcl Immed Release 5 Mg Tablet PO 12/18/23 22:48 5 mg ONCE ONE Administration Medical Decision Making Medical Decision Making [facility] Narrative: There p.o. Cardizem, patient's vitals: 108/62, heart rate 102 -patient is a very difficult stick, has been poked multiple times. Patient has labs from yesterday. At this time, we will not attempt to poke the patient anymore. Patient responding well to p.o. treatment. -tomorrow, respiratory therapist and case management will work together to make sure that the patient has oxygen at home. -physician observation started at 23:20 Differential Diagnosis Differential Diagnoses: The differential diagnosis associated with the presentation includes Admission/Observation Consideration of admission/observation: Escalation of care including admission/observation considered (Patient is under physician observation, waiting for case management and respiratory therapy to sent the proper documentation for home O2) Critical Care Time Critical Care Time Critical Care Time: Yes Total Critical Care Time: 60 Attestation: I have personally provided critical care time. Time includes review of lab data, radiology results, discussion with consultants, and monitoring for potential decompensation. Intervention performed as documented. Discharge Plan Discharge Clinical Impression: Atrial fibrillation with RVR Patient Disposition: Still a Patient Prescriptions: No Action (DME) blood-glucose meter [OneTouch Ultra2 Meter] Kit See Rx Instructions .ROUTE .MEDSUPPLY Qty: 1 0RF Hold Instructions: Doctor's Order Rx Instructions: As directed check the blood sugar TID (DME) hospital bed Kit See Rx Instructions .Route Qty: 1 0RF Rx Instructions: As directed acetaminophen 500 mg capsule 500 mg PO Q6H PRN (Reason: fever) 30 Days Qty: 120 1RF Eliquis 5 mg tablet 5 mg PO BID 30 Days Qty: 60 6RF furosemide 40 mg tablet 40 mg PO BID Qty: 180 1RF diltiazem HCl 240 mg capsule,extended release 24hr 240 mg PO DAILY 90 Days Qty: 90 2RF docusate sodium 100 mg capsule 100 mg PO BID PRN (Reason: constipation) Qty: 60 1RF allopurinol 300 mg tablet 150 mg PO DAILY Qty: 45 3RF paroxetine HCl 20 mg tablet 20 mg PO QAM Qty: 90 2RF (DME) pen needle, diabetic [BD Ultra-Fine Tamia Pen Needle] 32 gauge x 5/32 needle See Rx Instructions .ROUTE .MEDSUPPLY Qty: 50 3RF Rx Instructions: three times per day (DME) OneTouch Ultra Test Strip See Rx Instructions .Route Qty: 3 0RF Hold Instructions: Doctor's Order Rx Instructions: As directed check blood sugar 3 times a day (DME) lancets Misc See Rx Instructions .ROUTE .MEDSUPPLY Qty: 100 0RF Rx Instructions: As directed check the blood sugar TID nicotine 14 mg/24 hr patch 24 hour 1 patch topical DAILY omeprazole 20 mg Capsule,Delayed Release(Dr/Ec) 20 mg PO BID@0630,1630 Qty: 60 0RF insulin lispro [Admelog U-100 Insulin lispro] 100 unit/mL Solution See Protocol subcut QIDACHS Qty: 10 0RF Protocol: Insulin Correction Scale Less than or equal to 110 ---- Give (units): 0 111 to 150 Give (units): 2 151 to 200 Give (units): 4 201 to 250 Give (units): 6 251 to 300 Give (units): 8 301 to 350 Give (units): 12 Greater than 350 Give (units): 14 Call MD if Blood Glucose > : 350 Rx Instructions: BG <111 0 units, 111-150 - 0 units, 151-200 2 units, 201-250 4 units, 251-300 6 units, 301-350 8 units, >350 10 units Mucus DM 30-600 mg Tablet Extended Release 12 Hr 1 tab PO BID Qty: 60 0RF lidocaine [Lidocaine Pain Relief] 4 % Adhesive Patch,Medicated 1 patch transdermal DAILY Qty: 15 0RF Protocol: Apply to: Apply to: midline lower lumbar area amiodarone 200 mg Tablet 200 mg PO DAILY Qty: 60 0RF cyclobenzaprine 10 mg tablet 10 mg PO TID (DME) Wheel chair Kit See Rx Instructions .Route Qty: 1 0RF Rx Instructions: As directed (DME) walker [facility] See Rx Instructions .Route Qty: 1 0RF Rx Instructions: As directed (DME) commode Kit See Rx Instructions .Route Qty: 1 0RF Rx Instructions: As directed insulin glargine [Lantus Solostar U-100 Insulin] 100 unit/mL (3 mL) insulin pen 20 unit subcut QPM Qty: 15 0RF oxycodone 5 mg tablet 5 mg PO Q8H PRN (Reason: pain) Qty: 21 0RF Rx Instructions: Partial Fill upon patient request. gabapentin 100 mg Capsule 100 mg PO TID Qty: 90 0RF prednisone 10 mg tablet See Taper PO DIRECTED Qty: 15 0RF Taper: Prednisone 20 mg daily for 5 Days and 0 Hour 10 mg daily for 5 Days and 0 Hour Rx Instructions: see taper instructions ipratropium-albuterol 0.5 mg-3 mg(2.5 mg base)/3 mL solution for nebulization 3 ml inhalation Q6H PRN (Reason: shortness of breath or wheezing) Qty: 180 2RF albuterol sulfate 90 mcg/actuation HFA aerosol inhaler 2 puff PO Q4H 30 Days Qty: 8.5 3RF (DME) blood-glucose meter [FreeStyle Lite Meter] Kit See Rx Instructions .Route Qty: 1 0RF Rx Instructions: As directed (DME) FreeStyle Lite Strips Strip See Rx Instructions .ROUTE .MEDSUPPLY Qty: 100 3RF Rx Instructions: As directed (DME) lancets [FreeStyle Lancets] 28 gauge misc See Rx Instructions .ROUTE .MEDSUPPLY Qty: 100 3RF Rx Instructions: As directed (DME) FreeStyle Sinan 2 Sensor Kit See Rx Instructions .Route Qty: 1 6RF Rx Instructions: As directed (DME) FreeStyle Sinan 2 Hudson Misc See Rx Instructions .Route Qty: 1 6RF Rx Instructions: As directed Print Language: Telugu
[2023-12-18 22:16] VITALS: BP 127/53; PULSE 105; RESP 24; TEMP 36.8; O2SAT 96; BMI 19.6
--- NOTE | 2023-12-18 22:46 | MHC.CM.ED ---
Addendum entered by Renee Castellon 12/18/23 23:01: Referral made with [facility] in [facility]. Addendum entered by Renee Castellon 12/18/23 22:54: Provider explained to patient that she will remain in ED at this time. Will verify oxygen services in the morning. CM did not meet with patient, as she was sleeping. Original Note: Received consult from Dr. Schreiber regarding this patient. Apparently she was [place] [facility] [place]. Was admitted from 10/29-12/17. She had an ICU stay. [facility], OT, LADLE PATCHER and SW. She was also discharged with home oxygen. CM called RT. Pt was set up with [facility] and the paperwork was successfully faxed to them at 1517 today. Pt was discharged home. [facility] did not bring any oxygen to her home. Pt almost ran out of oxygen, as she only had 1 tank, so she returned to the ED at 2055. RT will alert Edwar on days regarding issue with [facility]. Pt will remain overnight boarding in the ED, pending verification that her oxygen services are set up. Pt has as-fib with RVR. Work up continuing. Will alert [facility] as to patient situation. CM will follow in am.
[2023-12-18 22:58] VITALS: BP 133/58; PULSE 126
[2023-12-18] MEDS: oxyCODONE HCl Immed Release 5 MG TABLET PO (22:58)
[2023-12-18] MEDS: dilTIAZem HCL 60 MG TABLET PO (22:58)
[2023-12-19] VITALS (9 sets, daily range): BP systolic 95–130; BP diastolic 51–61; PULSE 75–110; RESP 16–19; TEMP 36.2–37; O2SAT 4–100
--- NOTE | 2023-12-19 04:07 | MHC.EDTECH ---
Yash in place for Pt.
--- NOTE | 2023-12-19 06:02 | MHC.EDTECH ---
400ml of urine emptied from canister. Purewick remains in place, Pt clean/dry at this time.
--- NOTE | 2023-12-19 08:22 | PC.RT ---
I spoke with [facility] this am regarding oxygen delivery yesterday. They said that they were trying to call the daughter Sanjana on several occasions and she kept hanging up on them. The putaway driver then went to the house and left a note on the door saying telling them to to call [facility] as no one was home. I did contact Ellen Morgan daughter this am and she said she would be home all day today so [facility] can delover the 02 this am between 10-1030am. I requested that [facility] calls me when the 02 is set up so we can further discharge patient home. Case management and RN and document examiner aware of this.
[2023-12-19] MEDS: Acetaminophen 325 MG TABLET 975 MG PO (08:54)
--- NOTE | 2023-12-19 09:14 | MHC.CM.ED ---
Addendum entered by Inez Fry 12/19/23 13:25: [facility], [facility], [facility] , [facility], [facility], [facility] and [facility] are all able to offer beds. These options were discussed with patient. Patient accepts bed at [facility]. [facility] has been asked to obtain insurance auth. Addendum entered by Inez Fry 12/19/23 11:54: Patient now requesting STR. T/W spoke with patient's daughter, Sanjana, via telephone at [phone]. Sanjana agreeable to STR as well. Patient has been to [facility] in the past. Sanjana aware referral will be broadcasted in [facility] for bed availability. Original Note: Patient remains in ER. Received notification from Edwar YIP that oxygen will be re-delivered with [employer] at 1030am today. [facility] booked for 12pm. [facility] chart. Patient, Deb RN and Maryann CORE DRILL OPERATOR HELPER aware. [facility] also made aware. Continue to monitor for d/c needs.
[2023-12-19] MEDS: oxyCODONE HCl Immed Release 5 MG TABLET PO ×2 (12:17→20:41)
[2023-12-19 13:45] LABS: Glucose, Whole Blood 333 mg/dL (60-115)
[2023-12-19 13:50] LABS: COVID-19 Test Negative (Negative); IDNOW Serial# 58CA691E
--- NOTE | 2023-12-19 15:54 | MHC.EDTECH ---
THIS PCT ASSUMED CARE OF PATIENT AT 1500 ,VITALS TAKEN ,PATIENT WAS INCONTINENT OF URINE ,BED BATH GIVEN AND BEDDING CHANGE ,PT BELONINGS LIST DONE .PATIENT DRANK 120 ML JUICE .PATIENT A&O ,PLAN OF CARE CONTINUE .
[2023-12-19 21:37] LABS: Glucose, Whole Blood 269 mg/dL (60-115)
--- NOTE | 2023-12-19 23:31 | PC.NURSE ---
Took report from off-going RN. Pt is 78 y/o female who is here from home for evaluation and dispostion. Pt returned here to the ED approximately 4 hours after discharge from inpatient unit upstairs. Pt never receieved her home oxygen. Pt originally wanted to return home after discharge, but is now asking to be discharged to rehab. Pt is incontinent of urine and has a pur-wick in place. Pt is pending evaluation with PT, but has been refusing. Regular diet. Pending disposition.
--- NOTE | 2023-12-20 00:55 | PC.NURSE ---
Pt is sleeping semi-fowlers in bed, appears comfortable and no acute distress is observed. Pt changes positions independently as desired. Bed is at the lowest position and side rails are up. Will continue to monitor for any changes.
[2023-12-20 04:04] LABS: Glucose, Whole Blood 214 mg/dL (60-115)
--- NOTE | 2023-12-20 04:13 | PC.NURSE ---
Pt is lying semi-fowlers in bed, appears comfortable, and no acute distress is observed. Pt is easy to arouse with verbal stimui and skin is warm, pink, and dry. Pt has pur-wick in place, draining as expected. No verbalized needs at this time. Pt changes position in bed independently as desired. Disposition is pending, will continue to monitor for changes.
[2023-12-20 06:18] VITALS: BP 142/58; PULSE 79; RESP 19; TEMP 36.7; O2SAT 100
--- NOTE | 2023-12-20 06:41 | PC.NURSE ---
Pt incontinent of urine and bedding was found to be wet. Bed linen and hospital gown changed. Pt is awake and asking for pain management. Pt responds appropriately with staff, is calm and cooperative. Changes positions in bed independently as desired and verbalizes needs. Disposition is pending. Will continue to monitor for any changes.
[2023-12-20] MEDS: oxyCODONE HCl Immed Release 5 MG TABLET PO ×3 (06:49→19:00)
[2023-12-20 07:29] LABS: Glucose, Whole Blood 235 mg/dL (60-115)
--- NOTE | 2023-12-20 09:24 | PHA.MEDREC ---
Pharmacy Consult ? Medication Reconciliation Pharmacy has reviewed the medication reconciliation done by nursing. Patient was [place] [facility] [place].
[2023-12-20] MEDS: Lidocaine 4 % Patch ADH..PATCH 1 PATCH TRANSDERMA (09:49)
[2023-12-20] MEDS: allopurinoL 300 MG TABLET 150 MG PO (09:50)
[2023-12-20] MEDS: Omeprazole 20 MG CAPSULE.DR PO ×2 (09:50→17:33)
[2023-12-20] MEDS: guaiFENesin DM 600/30 1 TAB TAB.ER.12H PO ×2 (09:50→21:59)
[2023-12-20] MEDS: Furosemide 40 MG TABLET PO ×2 (09:50→21:24)
[2023-12-20] MEDS: Apixaban 5 MG TABLET PO ×2 (09:50→21:24)
[2023-12-20] MEDS: Nicotine 14 MG PATCH.TD24 TRANSDERMA (09:50)
[2023-12-20] MEDS: Amiodarone HCL 200 MG TABLET PO (09:50)
[2023-12-20] MEDS: predniSONE 10 MG TABLET 20 MG PO (09:51)
[2023-12-20] MEDS: Gabapentin 100 MG CAPSULE PO ×3 (09:51→21:24)
--- NOTE | 2023-12-20 09:57 | PC.NURSE ---
patient cleaned up in bed and repositioned. medicated per the MAR - takes meds whole in applesauce.
[2023-12-20] MEDS: Acetaminophen 325 MG TABLET 975 MG PO (10:35)
[2023-12-20] MEDS: dilTIAZem HCL CD 240 MG CAP.ER.DEG PO (11:08)
[2023-12-20] MEDS: PARoxetine HCL 20 MG TABLET PO (11:08)
[2023-12-20] MEDS: Insulin Lispro 100 UNIT/ML 3 ML VIAL SUBCUT ×3 (11:45→21:27)
[2023-12-20 11:46] LABS: Glucose, Whole Blood 293 mg/dL (60-115)
[2023-12-20 12:00] VITALS: BP 121/63; PULSE 57; RESP 20; TEMP 36.6; O2SAT 95
[2023-12-20] MEDS: Albuterol Sulfate 90 MCG 8 GM INHALER 2 PUFF INHALE ×3 (12:51→21:34)
--- NOTE | 2023-12-20 15:00 | MHC.CM.ED ---
Patient remains in ER overflow. Insurance auth has been obtained. Patient can leave Wednesday 12/20 at 10am. [facility] booked. [facility] with chart. Patient, daughter Carla Allan RN and Karla LANDRY aware[facility] Continue to monitor for d/c needs.
[2023-12-20 16:05] VITALS: BP 142/67; PULSE 93; RESP 16; TEMP 37.1; O2SAT 98
--- NOTE | 2023-12-20 16:10 | MHC.EDTECH ---
THIS PCT ASSUMED CARE OF PATIENT AT 1500 ,VITALS TAKEN ,900 ML EMPTY FROM PURE WICK .
[2023-12-20 17:07] LABS: Glucose, Whole Blood 339 mg/dL (60-115)
--- NOTE | 2023-12-20 19:00 | MHC.EDTECH ---
Patient ate 100 % of meal and drank 360 ml fluids .
[2023-12-20 19:41] VITALS: BP 111/72; PULSE 74; RESP 16; TEMP 36.8; O2SAT 97
--- NOTE | 2023-12-20 20:42 | MHC.EDTECH ---
Patient asked for snack. Okay per JOCE Be. Peanut butter crackers and milk provided.
[2023-12-20 21:21] LABS: Glucose, Whole Blood 387 mg/dL (60-115)
[2023-12-20] MEDS: Insulin Glargine,Hum.rec.anlog 100 UNIT/ML 10 ML VIAL 20 UNIT SUBCUT (21:28)
[2023-12-20] MEDS: Cyclobenzaprine HCl 5 MG TABLET PO (21:59)
--- NOTE | 2023-12-20 23:12 | MHC.EDTECH ---
PATIENT WAS GIVEN A BED BATH ,BEDDING CHANGE ,BARRIER CREAM APPLY TO COCCYX AND GROIN ,WARM BLANKET GIVEN ,950 ML URINE EMPTY FROM PURE WICK .PATIENT HAD GRHAM CRACKERS AND PEANUT BUTTER FOR SNACK .
[2023-12-21] MEDS: oxyCODONE HCl Immed Release 5 MG TABLET PO ×2 (00:50→07:40)
--- NOTE | 2023-12-21 02:00 | MHC.EDTECH ---
Patient was incontinent of urine ,care given and bedding change ,Patient had some saltine crackers and water for snack .
[2023-12-21] MEDS: Albuterol Sulfate 90 MCG 8 GM INHALER 2 PUFF INHALE ×2 (02:45→04:25)
[2023-12-21] MEDS: Acetaminophen 325 MG TABLET 975 MG PO (04:23)
[2023-12-21] MEDS: Omeprazole 20 MG CAPSULE.DR PO (05:33)
[2023-12-21 05:38] VITALS: BP 133/71; PULSE 100; RESP 15; TEMP 36.7; O2SAT 97
[2023-12-21] MEDS: Nicotine 14 MG PATCH.TD24 TRANSDERMA (07:35)
[2023-12-21] MEDS: Lidocaine 4 % Patch ADH..PATCH 1 PATCH TRANSDERMA (07:37)
[2023-12-21] MEDS: Gabapentin 100 MG CAPSULE PO (07:39)
[2023-12-21] MEDS: Apixaban 5 MG TABLET PO (07:40)
[2023-12-21] MEDS: Furosemide 40 MG TABLET PO (07:40)
[2023-12-21 07:52] LABS: Glucose, Whole Blood 279 mg/dL (60-115)
[2023-12-21] MEDS: Insulin Lispro 100 UNIT/ML 3 ML VIAL SUBCUT (08:07)
[2023-12-21] MEDS: predniSONE 10 MG TABLET 20 MG PO (09:24)
[2023-12-21] MEDS: PARoxetine HCL 20 MG TABLET PO (09:25)
[2023-12-21] MEDS: guaiFENesin DM 600/30 1 TAB TAB.ER.12H PO (09:25)
[2023-12-21] MEDS: Amiodarone HCL 200 MG TABLET PO (09:25)
[2023-12-21] MEDS: allopurinoL 300 MG TABLET 150 MG PO (09:26)
[2023-12-21] MEDS: dilTIAZem HCL CD 240 MG CAP.ER.DEG PO (09:27)
--- NOTE | 2023-12-21 09:59 | PC.NURSE ---
Attempted to call report to [facility] with no success.
== END 2023-12-21 10:03 | disposition other institution (70) ==
PROVIDERS: Registered Nurse Emergency; Emergency Provider Emergency Medicine
DX: I48.20 Chronic atrial fibrillation, unspecified (principal); R06.02 Shortness of breath; I50.9 Heart failure, unspecified; E11.9 Type 2 diabetes mellitus without complications; J44.9 Chronic obstructive pulmonary disease, unspecified; Z79.899 Other long term (current) drug therapy
CPT/HCPCS: 82947; 87635; 93005; 97162; 99285

== ENCOUNTER → 2023-12-18 21:15 | Outpatient (BNV) | payer OTHER, SELFPAY | PROVIDERS: Emergency Provider Emergency Medicine; Visit Provider Internal Medicine Cardiovascular Disease | DX: R06.02 Shortness of breath (principal); R94.31 Abnormal electrocardiogram [ECG] [EKG] | CPT/HCPCS: 93010 ==

== ENCOUNTER 2024-01-10 22:55 | Inpatient (IN) | payer OTHER, SELFPAY ==
[2024-01-10] VITALS (8 sets, daily range): BP systolic 120–126; BP diastolic 71–84; PULSE 104–132; RESP 20–30; TEMP 36.9; O2SAT 50–94; BMI 32.2
--- NOTE | 2024-01-10 | ECG_ITS ---
Test Reason : SOB Blood Pressure : / mmHG Vent. Rate : 104 BPM Atrial Rate : 104 BPM P-R Int : 214 ms QRS Dur : 082 ms QT Int : 366 ms P-R-T Axes : 078 -04 048 degrees QTc Int : 481 ms Sinus tachycardia with Premature atrial complexes Otherwise normal ECG When compared with ECG of 18-DEC-2023 21:21, Premature atrial complexes are now Present IN interval has increased Referred By: Ruby Schreiber Electronically Signed By:Naldo Moncada
--- NOTE | ~2024-01-10 | XR_ITS ---
EXAMINATION: XR CHEST CLINICAL INFORMATION: Shortness of breath COMPARISON: 12/16/2023 TECHNIQUE: Frontal view of the chest was obtained. FINDINGS: The lungs are hypoinflated. Coarsened appearance of the interstitium and more confluent opacities of the left lung appear similar to possibly slightly increased on the left compared to prior. No appreciable pneumothorax or significant pleural effusion. The cardiomediastinal silhouette is stable. No acute osseous findings are seen. XR/XR chest 1V IMPRESSION: Coarsened appearance of the interstitium and more confluent opacities of the left lung, similar to possibly slightly increased compared to prior. Appearance could reflect persistent/recurrent infection, though developing interstitial lung disease is also a possibility.
--- NOTE | ~2024-01-10 | CT_ITS ---
EXAMINATION: CT ABDOMEN AND PELVIS WITHOUT CONTRAST CLINICAL INFORMATION: Bacteremia. COMPARISON: CT abdomen and pelvis dated 11/21/2023. TECHNIQUE: Multidetector volumetric imaging was performed from the superior aspect of the liver through the pubic symphysis. Sagittal and coronal reformatted images were obtained on the technologist's workstation. This CT examination was performed using dose optimization techniques as appropriate, variously including the following: *Automated exposure control *Adjustment of mA and/or kV according to patient size (this includes techniques or standardized protocols for targeted exams where dose is matched to indication/reason for exam; i.e. extremities or head) *Use of iterative reconstruction technique DLP: 913 mGy-cm FINDINGS: LUNG BASES: There are moderately severe bibasilar foci of patchy airspace disease. LIVER, GALLBLADDER, AND BILIARY TREE: The liver is normal in size, shape, and attenuation. No focal hepatic lesion or biliary ductal dilatation is present. The gallbladder is distended and contains layering milk of calcium. No pericholecystic fat stranding or fluid is seen. PANCREAS: Unremarkable. SPLEEN: Unremarkable. ADRENAL GLANDS: Unremarkable. KIDNEYS AND URETERS: The kidneys are normal in size, shape, and attenuation. No hydronephrosis, hydroureter, or calculi seen. No perinephric stranding. BLADDER: Unremarkable. GASTROINTESTINAL TRACT: There is a large stool burden, suggesting possible constipation. No verenice bowel obstruction is seen. Rectosigmoid wall thickening is less pronounced than was noted previously; however, anorectal wall thickening is noted. No obstruction, free intraperitoneal air or abscess is seen. The vermiform appendix is poorly identified; however, there is no finding to suggest appendicitis. ABDOMINAL WALL: There is a diastases rectus. There is a very small fat-containing umbilical hernia. LYMPH NODES: Normal. VASCULAR: There is moderate aortoiliac atherosclerotic calcification. No abdominal aortic aneurysm is seen. PELVIC VISCERA: Surgically absent. No pelvic mass, free fluid or lymphadenopathy is seen. OSSEOUS STRUCTURES: There is multi-level marked thoracolumbar degenerative disc disease. There has been a prior L4-L5 posterior fusion. A right hip arthroplasty is seen, and there is degenerative change of the left hip. No acute or aggressive osseous finding is noted. CT/CT abdomen pelvis wo IV con IMPRESSION: 1. Previously noted rectosigmoid wall thickening is now not identified with certainty; however, there is some anorectal wall thickening, for which clinical correlation is recommended. There is a large stool burden, suggesting constipation without verenice bowel obstruction. No appendicitis or diverticulitis is seen. 2. Again, there is layering milk of calcium within the gallbladder, without cholecystitis noted. 3. There is no urinary calculus or obstruction. 4. There is no abdominopelvic mass, free fluid or lymphadenopathy noted. 5. There are degenerative changes of the spine and left hip. No acute or aggressive osseous finding is seen. 6. There are diffuse bibasilar infiltrates, concerning for possible pneumonia. Fleischner guidelines were followed.
--- NOTE | ~2024-01-10 | XR_ITS ---
EXAMINATION: XR CHEST CLINICAL INFORMATION: Dyspnea COMPARISON: 01/10/2024 TECHNIQUE: Frontal view of the chest was obtained. FINDINGS: The lungs are hypoinflated. Extensive multifocal airspace opacities are present bilaterally, overall worsened from prior, most prominently at the left base. Underlying coarsened appearance of the interstitium is suspected. No evidence of pneumothorax or significant pleural effusion. The cardiomediastinal silhouette is stable. No acute osseous findings are seen. XR/XR chest 1V IMPRESSION: Extensive multifocal bilateral airspace opacities, overall worsened from 01/10/2024.
--- NOTE | 2024-01-10 23:08 | ED.SOB ---
HPI - SOB/Dyspnea General Chief Complaint: Dyspnea Stated Complaint: RESP DISTRESS Time Seen by Provider: 01/10/24 23:03 Source: EMS Mode of arrival: EMS Limitations: altered mental status History of Present Illness ED Provider: Dr. Ruby Schreiber HPI Narrative: Patient comes to the emergency room via ambulance. Patient coming from legal care. According to EMS, the staff reported that patient uses 2 L of O2 at baseline. They noted that patient was hypoxic in the 50s and waited for 2 hours hoping that the patient would get better, since she actually got worse, the staff call EMS. When EMS arrived, patient was cyanotic, tripoding, oxygen saturation in the mid 50s on 2 L of oxygen. EMS immediately put the patient on a non-rebreather, oxygen improved to 94% and brought her to the emergency room. Patient is too short of breath to give any history. Patient comes with a MOLST form that was signed in December of 2023, patient is do not intubate, do resuscitate. Related Data Home Medications ?Medication ?Instructions ?Recorded ?Confirmed nicotine 14 mg/24 hr daily 1 patch topical DAILY 10/30/23 12/20/23 transdermal patch cyclobenzaprine 10 mg tablet 10 mg PO TID 12/13/23 12/20/23 Previous Rx's ?Medication ?Instructions ?Recorded blood-glucose meter (Privacy AnalyticsTouch #1 ea 01/11/22 Ultra2 Meter kit) blood sugar diagnostic (FreeStyle #100 ea 03/09/22 Lite Strips) blood-glucose meter (FreeStyle #1 ea 03/09/22 Lite Meter kit) lancets 28 gauge (FreeStyle #100 ea 03/09/22 Lancets) flash glucose scanning reader #1 ea 05/29/22 (FreeStyle Sinan 2 Sprague) flash glucose sensor (FreeStyle #1 ea 05/29/22 Sinan 2 Sensor kit) hospital bed #1 ea 12/06/22 acetaminophen 500 mg capsule 500 mg PO Q6H PRN fever 30 days 03/29/23 #120 caps apixaban 5 mg tablet (Eliquis) 5 mg PO BID 30 days #60 tabs 06/12/23 furosemide 40 mg tablet 40 mg PO BID #180 tabs 08/10/23 albuterol sulfate 90 mcg/actuation 2 puff PO Q4H for wheezing 30 days 08/22/23 aerosol inhaler #8.5 grams ipratropium 0.5 mg-albuterol 3 mg 3 ml inhalation Q6H PRN shortness 08/22/23 (2.5 mg base)/3 mL nebulization of breath or wheezing #180 mL soln diltiazem HCl 240 mg 240 mg PO DAILY 90 days #90 caps 08/23/23 capsule,extended release 24 hr docusate sodium 100 mg capsule 100 mg PO BID PRN constipation #60 10/09/23 caps allopurinol 300 mg tablet 150 mg (1/2 x 300 mg) PO DAILY #45 10/10/23 tabs paroxetine HCl 20 mg tablet 20 mg PO QAM #90 tabs 10/24/23 blood sugar diagnostic (OneTouch #3 ea 10/27/23 Ultra Test strips) lancets #100 ea 10/27/23 pen needle, diabetic 32 gauge x #50 ea 10/27/23 (BD Ultra-Fine Tamia Pen Needle) amiodarone 200 mg tablet 200 mg PO DAILY #60 tabs 12/06/23 dextromethorphan-guaifenesin 30 1 tab PO BID #60 tabs 12/06/23 mg-600 mg tablet extended [id number] hr (Mucus DM) insulin lispro 100 unit/mL See Protocol subcut QIDACHS #10 mL 12/06/23 subcutaneous solution (Admelog U-100 Insulin lispro) lidocaine 4 % topical patch 1 patch transdermal DAILY #15 ea 12/06/23 (Lidocaine Pain Relief) omeprazole 20 mg capsule,delayed 20 mg PO BID@0630,1630 #60 caps 12/06/23 release chair, wheel (Wheel chair) #1 ea 12/18/23 commode #1 ea 12/18/23 gabapentin 100 mg capsule 100 mg PO TID #90 caps 12/18/23 insulin glargine 100 unit/mL (3 20 unit (0.2 mL) subcut QPM #15 mL 12/18/23 mL) subcutaneous pen (Lantus Solostar U-100 Insulin) oxycodone 5 mg tablet 5 mg PO Q8H PRN pain #21 tabs 12/18/23 prednisone 10 mg tablet See Taper PO DIRECTED #15 tabs 12/18/23 walker #1 ea 12/18/23 oxycodone 5 mg tablet 5 mg PO Q6H PRN pain #10 tabs 12/21/23 Allergies Allergy/AdvReac Type Severity Reaction Status Date / Time aspirin [Aspirin] Allergy Mild NAUSEA Verified 01/10/24 22:59 codeine [Codeine] Allergy Mild VOMITING Verified 01/10/24 22:59 Review of Systems Review of Systems: Yes Unobtainable due to mental condition PMFSH Past Medical History Medical History Functional urinary incontinence Anxiety with restlessness Chronic back pain Chronic lung disease CHF (congestive heart failure), NYHA class II Paroxysmal A-fib Opiate dependence Atelectasis Bacteremia due to Enterococcus CHF (congestive heart failure) A-fib Diabetes Cough Hypoventilation syndrome Skin cancer of trunk Skin cancer of face COPD (chronic obstructive pulmonary disease) Failed back syndrome Surgical History History of knee surgery History of shoulder surgery History of ankle surgery History of hip surgery Family History Family History Father No problems noted. Mother No problems noted. Daughter Opiate dependence Substance use disorder Family/Other FH: mental illness Mental health disorder Social History Social History Household Members: None Household Members Other:: daughter Housing: Apartment Do you presently have visiting nurse or other home services: Yes Unable to assess alcohol history related to: Unknown Alcohol intake: never Comment: bilateral wrist restraints for airway safety Patient Tobacco Use Status: Former Tobacco user Tobacco use type: Cigarette e-Cigarette/Vaping Use: Never Used Advance Directives: No Advance Directives Information Provided: Yes service: No Current occupational status: retired and disabled Cognitive needs: Yes Hearing needs: No Vision needs: Yes Physical Exam Vital Signs: Vital Signs: Last Vital Signs Temp 97.9 F 01/11/24 00:32 Pulse 116 H 01/11/24 01:15 Resp 28 H 01/11/24 01:15 BP 133/51 L 01/11/24 00:32 Pulse Ox 94 01/11/24 01:15 O2 Del Method Oxymask 01/11/24 01:15 O2 Flow Rate 10 01/11/24 01:15 FiO2 40 01/11/24 00:32 BMI result Body Mass Index 32.2 Const: Other: Appearance: Very somnolent Eyes: Pupils equal, round and reactive to light. ENT: Pharynx normal. Neck: Normal inspection. Neck supple. No lymph nodes noted. No crepitus CVS: Normal heart rate and rhythm. Pulses normal. Normal S1 and S2 Respiratory: In significant respiratory distress, oxygen 94% on 15 L, decreased breath sounds on the left side, bilateral rales and crackles Abdomen: Soft and nontender. No rigidity. No distention. Skin: Skin warm and dry. Normal skin color. Normal skin turgor. Extremities: No lower extremity edema. No Lacerations. No Rash Neuro: Unable to participating cranial nerve assessment Psych: Somnolent Course Course Course Narrative: -all of patient's labs and imaging pending Medications Administered Discontinued Medications Generic Name Dose Route Start Last Admin Trade Name Freq PRN Reason Stop Dose Admin Albuterol Sulfate 7.5 mg/ 10 mg 01/10/24 23:08 01/10/24 23:15 Albuterol Sulfate 2.5 mg INHALE 01/10/24 23:09 10 mg ONCE ONE Administration Ceftriaxone Sodium 1 gm/ 50 mls @ 100 mls/hr 01/10/24 23:05 01/11/24 00:36 Sodium Chloride IV 01/10/24 23:34 Infused ONCE ONE Infusion Azithromycin 500 mg/ Sodium 250 mls @ 125 mls/hr 01/10/24 23:05 01/11/24 00:19 Chloride IV 01/11/24 01:04 125 mls/hr ONCE ONE Administration Magnesium Sulfate 2 gm in 50 mls @ 25 mls/hr 01/10/24 23:05 01/11/24 01:01 Magnesium Sulfate/H2o IV 01/11/24 01:04 Infused ONCE ONE Infusion Sodium Chloride 2,000 mls @ 999 mls/hr 01/10/24 23:05 01/11/24 01:21 Ns IVCONT 01/11/24 01:05 Infused .Q2H1M ONE Infusion Methylprednisolone Sodium Succinate 125 mg 01/10/24 23:05 01/10/24 23:16 Methylprednisolone Sod Succ 125 Mg/2 Ml Vial IVPUSH 01/10/24 23:06 125 mg ONCE ONE Administration Morphine Sulfate 1 mg 01/11/24 00:58 01/11/24 01:08 Morphine Sulfate 2 Mg/Ml Cartridge IVPUSH 01/11/24 00:59 1 mg ONCE ONE Administration Protocol Medical Decision Making Medical Decision Making [facility] Narrative: -all of patient's labs and imaging pending -I reviewed patient's echocardiogram from October of 2023, ejection fraction 60-65% -patient had a prolonged stay in the hospital, from October until December 17 when she was discharged. -patient empirically receiving IV fluids based on ideal weight 56 kg, patient is obese. Also given empirically, azithromycin and ceftriaxone for possible pneumonia -patient was placed on BiPAP, receiving nebulization treatments. When patient was here in the hospital, at night she was using BiPAP. -my interpretation of EKG: Sinus tachycardia, heart rate 104, no ST segment depressions or elevations, EKG difficult to read due to movement. EKG will be repeated once patient is breathing better. -patient was on BiPAP for several hours, weaned off to OxyMask, patient known 10 L saturating 90-92%. Patient is fully awake, alert and oriented x3 and coherent, we revisited her MOLST form. Patient still wants to be do resuscitate, [id number], okay to use CPAP or BiPAP if needed. Patient states that eventually she will reconsider changing her molds form to do not transferred to hospital. -my interpretation of labs, patient's white blood cell count at baseline, hematology 8.9, no need for transfusion, chronically anemic, pCO2 48 at baseline chemistry within normal limits and at baseline, troponin slightly bumped 45.3, likely from being hypoxic for a prolonged period of time at the correction BNP 154 which has been elevated in the past. -I discussed the patient with Dr. Pal, patient being admitted Differential Diagnosis Differential Diagnoses: The differential diagnosis associated with the presentation includes (Hypoxic respiratory failure) Admission/Observation Consideration of admission/observation: Escalation of care including admission/observation considered Consult Healthcare Provider Management of the patient was discussed with: Hospitalist Lab Data [facility] Lab Attestation statement: I reviewed the patient's lab results. 01/10/24 23:06 01/10/24 23:06 Labs: Lab Results 01/10/24 01/10/24 01/10/24 Range/Units 23:06 23:11 23:29 WBC 11.2 H (4.8-10.8) X10*3/uL RBC 3.16 L (4.20-5.50) X10*6/uL Hgb 8.9 L (12.0-16.0) g/dl Hct 28.9 L (37.0-47.0) % MCV 91.5 (80.0-98.0) fL MCH 28.2 (27.0-33.0) pg MCHC 30.8 L (31.0-35.0) g/dl RDW 14.7 (11.0-16.0) % Plt Count 244 (160-400) X10*3/uL MPV 10.2 (9.4-12.3) fL Immature Gran % (Auto) 0.4 (0.0-0.4) % Neut % (Auto) 85.2 H (45-73) % Lymph % (Auto) 8.6 L (20-40) % [place] % (Auto) 5.6 (2-11) % Eos % (Auto) 0.1 (0-4) % Baso % (Auto) 0.1 (0-2) % Lymph # (Auto) 1.0 L (1.2-4.9) X10*3/uL [place] # (Auto) 0.6 (0.1-1.2) X10*3/uL Eos # (Auto) 0.0 (0.0-0.4) X10*3/uL Baso # (Auto) 0.0 (0.0-0.2) X10*3/uL Abs Immat Gran (auto) 0.05 H (0.00-0.03) X10*3/uL Absolute Neuts (auto) 9.5 H (2.0-8.3) x10*3/uL Absolute Nucleated RBC 0.000 (0.0-0.012) X10*3/uL Nucleated RBC % (auto) 0.0 (0.0-0.2) /100WBC PT 22.3 H D (11.1-13.3) SEC INR 1.8 H (0.9-1.1) VBG pH 7.52 H (7.32-7.43) VBG pCO2 48 mmHg VBG pO2 87 mmHg VBG HCO3 39 H (22-26) mmol/L VBG O2 Saturation 100.0 % VBG Base Excess 14.8 mmol/L Sodium 139 (135-145) mmol/L Potassium 3.9 (3.3-5.1) mmol/L Chloride 97 (96-108) mmol/L Carbon Dioxide 32 H (22-29) mmol/L Anion Gap 14 (12-20) BUN 19 H (9-16) mg/dL Creatinine 0.96 (0.5-1.4) mg/dL Estim Creat Clear Calc 52.0 Estimated GFR 56 Random Glucose 247 H (60-115) mg/dL Lactic Acid 1.3 (0.5-2.0) mmol/L Calcium 9.3 (8.4-10.2) mg/dL Magnesium 2.3 (1.6-2.6) mg/dL Total Bilirubin 0.3 (0.0-1.0) mg/dL Direct Bilirubin 0.1 (0.0-0.5) mg/dL AST 14 (5-31) U/L ALT 14 (0-31) U/L Alkaline Phosphatase 84 (39-117) U/L Ammonia 30 (13-55) umol/L Troponin I High Sens 45.3 H D (<3.5-17.0) ng/L B-Natriuretic Peptide 154 H (<100) pg/mL Total Protein 6.7 (6.5-8.0) g/dL Albumin 3.9 (3.5-5.0) g/dL Urine Color Urine Appearance Urine pH (5.0-9.0) Ur Specific [place] (1.005-1.025) Urine Protein (Neg-Trace) mg/dL Urine Glucose (UA) (Negative) mg/dL Urine Ketones (Negative) mg/dL Urine Blood (Negative) Urine Nitrite (Negative) Ur Leukocyte Esterase (Negative) Urine Opiates Screen (Not Detect) Ur Buprenorphine Scrn (Not Detect) ng/mL Ur Oxycodone Screen (Not Detect) ng/mL Urine Methadone Screen (Not Detect) ng/mL Urine Fentanyl Screen (Not Detect) Ur Barbiturates Screen (Not Detect) Ur Phencyclidine Scrn (Not Detect) Ur Amphetamines Screen (Not Detect) U Benzodiazepines Scrn (Not Detect) Urine Cocaine Screen (Not Detect) U Marijuana (THC) Screen (Not Detect) Influenza Type A (PCR) NEGATIVE (Negative) Influenza Type B (PCR) NEGATIVE (Negative) RSV RNA Qual (PCR) NEGATIVE (Negative) SARS-CoV-2 RNA (RT-PCR) NEGATIVE (Negative) 01/10/24 Range/Units 23:49 WBC (4.8-10.8) X10*3/uL RBC (4.20-5.50) X10*6/uL Hgb (12.0-16.0) g/dl Hct (37.0-47.0) % MCV (80.0-98.0) fL MCH (27.0-33.0) pg MCHC (31.0-35.0) g/dl RDW (11.0-16.0) % Plt Count (160-400) X10*3/uL MPV (9.4-12.3) fL Immature Gran % (Auto) (0.0-0.4) % Neut % (Auto) (45-73) % Lymph % (Auto) (20-40) % Sterling % (Auto) (2-11) % Eos % (Auto) (0-4) % Baso % (Auto) (0-2) % Lymph # (Auto) (1.2-4.9) X10*3/uL [place] # (Auto) (0.1-1.2) X10*3/uL Eos # (Auto) (0.0-0.4) X10*3/uL Baso # (Auto) (0.0-0.2) X10*3/uL Abs Immat Gran (auto) (0.00-0.03) X10*3/uL Absolute Neuts (auto) (2.0-8.3) x10*3/uL Absolute Nucleated RBC (0.0-0.012) X10*3/uL Nucleated RBC % (auto) (0.0-0.2) /100WBC PT (11.1-13.3) SEC INR (0.9-1.1) VBG pH (7.32-7.43) VBG pCO2 mmHg VBG pO2 mmHg VBG HCO3 (22-26) mmol/L VBG O2 Saturation % VBG Base Excess mmol/L Sodium (135-145) mmol/L Potassium (3.3-5.1) mmol/L Chloride (96-108) mmol/L Carbon Dioxide (22-29) mmol/L Anion Gap (12-20) BUN (9-16) mg/dL Creatinine (0.5-1.4) mg/dL Estim Creat Clear Calc Estimated GFR Random Glucose (60-115) mg/dL Lactic Acid (0.5-2.0) mmol/L Calcium (8.4-10.2) mg/dL Magnesium (1.6-2.6) mg/dL Total Bilirubin (0.0-1.0) mg/dL Direct Bilirubin (0.0-0.5) mg/dL AST (5-31) U/L ALT (0-31) U/L Alkaline Phosphatase (39-117) U/L Ammonia (13-55) umol/L Troponin I High Sens (<3.5-17.0) ng/L B-Natriuretic Peptide (<100) pg/mL Total Protein (6.5-8.0) g/dL Albumin (3.5-5.0) g/dL Urine Color Yellow Urine Appearance Cloudy Urine pH 6.0 (5.0-9.0) Ur Specific [place] 1.015 (1.005-1.025) Urine Protein Negative (Neg-Trace) mg/dL Urine Glucose (UA) 500 H (Negative) mg/dL Urine Ketones Negative (Negative) mg/dL Urine Blood Negative (Negative) Urine Nitrite Negative (Negative) Ur Leukocyte Esterase Negative (Negative) Urine Opiates Screen Not Detected (Not Detect) Ur Buprenorphine Scrn Not Detected (Not Detect) ng/mL Ur Oxycodone Screen Positive H (Not Detect) ng/mL Urine Methadone Screen Not Detected (Not Detect) ng/mL Urine Fentanyl Screen Not Detected (Not Detect) Ur Barbiturates Screen Not Detected (Not Detect) Ur Phencyclidine Scrn Not Detected (Not Detect) Ur Amphetamines Screen Not Detected (Not Detect) U Benzodiazepines Scrn Not Detected (Not Detect) Urine Cocaine Screen Not Detected (Not Detect) U Marijuana (THC) Screen Not Detected (Not Detect) Influenza Type A (PCR) (Negative) Influenza Type B (PCR) (Negative) RSV RNA Qual (PCR) (Negative) SARS-CoV-2 RNA (RT-PCR) (Negative) Critical Care Time Critical Care Time Critical Care Time: Yes Total Critical Care Time: 90 Attestation: I have personally provided critical care time. Time includes review of lab data, radiology results, discussion with consultants, and monitoring for potential decompensation. Intervention performed as documented. Discharge Plan Discharge Clinical Impression: Hypoxic respiratory failure Patient Disposition: Admitted As Inpatient Print Language: Tristanian
[2024-01-10 23:12] LABS: MANUAL DIFF FLAG NO
[2024-01-10] MEDS: 0.9 % Sodium Chloride 2,000 ML 999 ML IVCONT (23:15)
[2024-01-10] MEDS: Albuterol Sulfate 7.5 MG, Albuterol Sulfate (0.083%) 2.5 MG 10 MG INHALE (23:15)
[2024-01-10 23:16] LABS: Venous Blood Gas Refer to POC result
[2024-01-10] MEDS: methylPREDNISolone Sod Succ 125 MG/2 ML VIAL IVPUSH (23:16)
[2024-01-10] MEDS: Magnesium Sulfate/H2O 2 GM/50 ML PIGGYBACK IV (23:16)
[2024-01-10 23:18] LABS: Basophils Percent Auto 0.1 % (0-2); Eosinophils Percent Auto 0.1 % (0-4); Hematocrit 28.9 % (37.0-47.0); Hemoglobin 8.9 g/dl (12.0-16.0); Imm Gran Abs Auto 0.05 X10*3/uL (0.00-0.03); Imm Gran Pct Auto 0.4 % (0.0-0.4); Lymphocytes Percent Auto 8.6 % (20-40); Mean Corpuscular HGB Conc 30.8 g/dl (31.0-35.0); Mean Corpuscular Hemoglobin 28.2 pg (27.0-33.0); Mean Corpuscular Volume 91.5 fL (80.0-98.0); Mean Platelet Volume 10.2 fL (9.4-12.3); Monocytes Absolute Auto 0.6 X10*3/uL (0.1-1.2); Monocytes Percent Auto 5.6 % (2-11); Neutrophils Absolute Auto 9.5 x10*3/uL (2.0-8.3); Neutrophils Percent Auto 85.2 % (45-73); Platelet Count 244 X10*3/uL (160-400); Red Blood Count 3.16 X10*6/uL (4.20-5.50); Red Cell Distribution Width 14.7 % (11.0-16.0); White Blood Count 11.2 X10*3/uL (4.8-10.8)
[2024-01-10 23:20] LABS: VBG Base Excess 14.8 mmol/L; VBG HCO3 39 mmol/L (22-26); VBG pCO2 48 mmHg; VBG pH 7.52 (7.32-7.43); VBG pO2 87 mmHg
[2024-01-10 23:24] LABS: INTERNATIONAL NORM RATIO 1.8 (0.9-1.1); Lactic Acid 1.3 mmol/L (0.5-2.0); Prothrombin Time 22.3 SEC (11.1-13.3)
[2024-01-10 23:29] LABS: Alanine Aminotransferase 14 U/L (0-31); Albumin Level 3.9 g/dL (3.5-5.0); Alkaline Phosphatase 84 U/L (39-117); Anion Gap 14 (12-20); Aspartate Amino Transferase 14 U/L (5-31); Bilirubin Direct 0.1 mg/dL (0.0-0.5); Bilirubin Total 0.3 mg/dL (0.0-1.0); Blood Urea Nitrogen 19 mg/dL (9-16); Calcium 9.3 mg/dL (8.4-10.2); Carbon Dioxide 32 mmol/L (22-29); Chloride 97 mmol/L (96-108); Estimated Glomerular Filt Rate 56; Glucose Random 247 mg/dL (60-115); Magnesium 2.3 mg/dL (1.6-2.6); Potassium 3.9 mmol/L (3.3-5.1); Sodium 139 mmol/L (135-145); Total Protein 6.7 g/dL (6.5-8.0)
[2024-01-10 23:34] LABS: Troponin-I High Sensitivity 45.3 ng/L (<3.5-17.0)
[2024-01-10 23:35] LABS: B Type Natriuretic Peptide 154 pg/mL (<100)
[2024-01-10] MEDS: cefTRIAXone sodium 1 GM in 0.9 % Sodium Chloride 50 ML IV (23:53)
[2024-01-10 23:54] LABS: Influenza A PCR NEGATIVE (Negative); Influenza B PCR NEGATIVE (Negative); Resp Syncy Virus RNA Qual PCR NEGATIVE (Negative); SARS COV2 PCR INHOUSE NEGATIVE (Negative)
[2024-01-10 23:57] LABS: Appearance Urine Cloudy; Color Urine Yellow; Glucose Urine UA 500 mg/dL (Negative); Leukocyte Esterase Urine Negative (Negative); Nitrite Urine Negative (Negative); Specific Gravity - Urine 1.015 (1.005-1.025); Urine Blood Negative (Negative); Urine Ketones Negative (Negative); Urine Protein Negative (Neg-Trace)
[2024-01-11] VITALS (21 sets, daily range): BP systolic 115–156; BP diastolic 48–80; PULSE 82–138; RESP 12–34; TEMP 36.1–37.1; O2SAT 88–97
[2024-01-11] MEDS: Azithromycin 500 MG in 0.9 % Sodium Chloride 250 ML 125 MG IV (00:19)
[2024-01-11 00:22] LABS: Ammonia 30 umol/L (13-55)
[2024-01-11 00:22] LABS: Amphetamine Screen Urine Not Detected (Not Detect); Barbiturates, Urine Not Detected (Not Detect); Benzodiazepines Screen Urine Not Detected (Not Detect); Buprenorphine Scr Not Detected (Not Detect); Cannabinoid Screen Urine Not Detected (Not Detect); Cocaine Screen Urine Not Detected (Not Detect); Fentanyl, urine Not Detected (Not Detect); Methadone Screen, Urine Not Detected (Not Detect); Opiate Screen Urine Not Detected (Not Detect); Oxycodone Screen Urine Positive (Not Detect); Phencyclidine Screen Urine Not Detected (Not Detect)
--- NOTE | 2024-01-11 00:47 | PC.NURSE ---
[facility] nurse sts she does not use CPAP or BIPAP at night. She is only on 3L - let provider know
[2024-01-11] MEDS: Morphine Sulfate 2 MG/ML CARTRIDGE 1 MG IVPUSH ×2 (01:08→02:22)
--- NOTE | 2024-01-11 01:31 | MHC.EDTECH ---
PROVIDER TYLER SAID NOT TO DO 2ND EKG .
--- NOTE | 2024-01-11 02:16 | P.HPHOSP_ITS ---
History of Present Illness Date of Service: 01/11/24 Chief Complaint: Hypoxia This is a 78-year-old female with pertinent history of paroxysmal atrial fibrillation on Eliquis, chronic hypoxic respiratory failure on 2 L baseline supplemental oxygen, gout, congestive heart failure with preserved EF, gout, insulin-dependent diabetes mellitus, history of dysphagia with aspiration pneumonia who was sent to the emergency department for evaluation of hypoxia. Patient was found to be hypoxic at outside facility on her home 2 L supplemental oxygen and brought to the ER. Patient does report difficulty breathing and wheezing. She also reports a cough. Patient admits she has been coughing and choking with p.o. intake. No chest pain or palpitations. No fever or chills. No abdominal pain, changes in urinary or bowel habits. In the emergency department, patient requiring 10 L supplemental oxygen and imaging concerning for pneumonia. Patient found to be wheezing despite multiple DuoNeb treatments Review of Systems 2 Constitutional: Constitutional: Reports fatigue and Reports malaise Cardiovascular: Cardiovascular: Reports dyspnea Respiratory: Respiratory: Reports cough, Reports dyspnea and Reports wheezing Gastrointestinal: Gastrointestinal: Reports no additional gastrointestinal complaints Genitourinary: Genitourinary: Reports no additional female genitourinary complaints Endocrine: Endocrine: Reports fatigue Allergic/Immunologic: Allergic/Immunologic: Reports wheezing [facility] Medical History Functional urinary incontinence Anxiety with restlessness Chronic back pain Chronic lung disease CHF (congestive heart failure), NYHA class II Paroxysmal A-fib Opiate dependence Atelectasis Bacteremia due to Enterococcus CHF (congestive heart failure) A-fib Diabetes Cough Hypoventilation syndrome Skin cancer of trunk Skin cancer of face COPD (chronic obstructive pulmonary disease) Failed back syndrome Family History Father No problems noted. Mother No problems noted. Daughter Opiate dependence Substance use disorder Family/Other FH: mental illness Mental health disorder Surgical History History of knee surgery History of shoulder surgery History of ankle surgery History of hip surgery Social History Household Members: None Household Members Other:: daughter Housing: Apartment Do you presently have visiting nurse or other home services: Yes Unable to assess alcohol history related to: Unknown Alcohol intake: never Comment: bilateral wrist restraints for airway safety Patient Tobacco Use Status: Former Tobacco user Tobacco use type: Cigarette e-Cigarette/Vaping Use: Never Used Advance Directives: No Advance Directives Information Provided: Yes service: No Current occupational status: retired and disabled Cognitive needs: Yes Hearing needs: No Vision needs: Yes Meds Allergies Allergy/AdvReac Type Severity Reaction Status Date / Time aspirin [Aspirin] Allergy Mild NAUSEA Verified 01/10/24 22:59 codeine [Codeine] Allergy Mild VOMITING Verified 01/10/24 22:59 Active Medications: Current Medications Lorazepam (Lorazepam 2 Mg/Ml Vial) 0.5 mg IVPUSH STAT STA Stop: 01/11/24 02:13 Morphine Sulfate (Morphine Sulfate 2 Mg/Ml Cartridge) 1 mg IVPUSH ONCE ONE; Protocol Stop: 01/11/24 02:13 Home Medications ?Medication ?Instructions ?Recorded ?Confirmed ?Last Taken ?Type nicotine 14 mg/24 hr daily 1 patch topical DAILY 10/30/23 12/20/23 12/18/23 History transdermal patch cyclobenzaprine 10 mg tablet 10 mg PO TID 12/13/23 12/20/23 12/18/23 History Physical Exam 2 Vital Signs and Narrative: Vital Signs: Last Vital Signs Temp 97.9 F 01/11/24 00:32 Pulse 116 H 01/11/24 01:15 Resp 28 H 01/11/24 01:15 BP 133/51 L 01/11/24 00:32 Pulse Ox 94 01/11/24 01:15 O2 Del Method Oxymask 01/11/24 01:15 O2 Flow Rate 10 01/11/24 01:15 FiO2 40 01/11/24 00:32 BMI result Body Mass Index 32.2 Elderly female lying in bed in mild distress on supplemental oxygen Neck supple Tachycardic with irregular rhythm Bilateral wheezing, crackles with tachypnea Abdomen soft, nontender Patient is awake and alert and oriented to self and place, no focal motor weakness No pedal edema Results Labs 01/10/24 23:06 01/10/24 23:06 Labs: Laboratory Results - last 24 hr 01/10/24 01/10/24 01/10/24 23:06 23:11 23:29 MCV 91.5 MCH 28.2 MCHC 30.8 L RDW 14.7 Plt Count 244 MPV 10.2 Immature Gran % (Auto) 0.4 Neut % (Auto) 85.2 H Lymph % (Auto) 8.6 L [place] % (Auto) 5.6 Eos % (Auto) 0.1 Baso % (Auto) 0.1 Lymph # (Auto) 1.0 L [place] # (Auto) 0.6 Eos # (Auto) 0.0 Baso # (Auto) 0.0 Abs Immat Gran (auto) 0.05 H Absolute Neuts (auto) 9.5 H Absolute Nucleated RBC 0.000 Nucleated RBC % (auto) 0.0 PT 22.3 H D INR 1.8 H VBG pH 7.52 H VBG pCO2 48 VBG pO2 87 VBG HCO3 39 H VBG O2 Saturation 100.0 VBG Base Excess 14.8 Anion Gap 14 Estim Creat Clear Calc 52.0 Estimated GFR 56 Random Glucose 247 H Lactic Acid 1.3 Calcium 9.3 Magnesium 2.3 Total Bilirubin 0.3 Direct Bilirubin 0.1 AST 14 ALT 14 Alkaline Phosphatase 84 Ammonia 30 Troponin I High Sens 45.3 H D B-Natriuretic Peptide 154 H Total Protein 6.7 Albumin 3.9 Urine Color Urine Appearance Urine pH Ur Specific [place] Urine Protein Urine Glucose (UA) Urine Ketones Urine Blood Urine Nitrite Ur Leukocyte Esterase Urine Opiates Screen Ur Buprenorphine Scrn Ur Oxycodone Screen Urine Methadone Screen Urine Fentanyl Screen Ur Barbiturates Screen Ur Phencyclidine Scrn Ur Amphetamines Screen U Benzodiazepines Scrn Urine Cocaine Screen U Marijuana (THC) Screen Influenza Type A (PCR) NEGATIVE Influenza Type B (PCR) NEGATIVE RSV RNA Qual (PCR) NEGATIVE SARS-CoV-2 RNA (RT-PCR) NEGATIVE 01/10/24 23:49 MCV MCH MCHC RDW Plt Count MPV Immature Gran % (Auto) Neut % (Auto) Lymph % (Auto) [place] % (Auto) Eos % (Auto) Baso % (Auto) Lymph # (Auto) [place] # (Auto) Eos # (Auto) Baso # (Auto) Abs Immat Gran (auto) Absolute Neuts (auto) Absolute Nucleated RBC Nucleated RBC % (auto) PT INR VBG pH VBG pCO2 VBG pO2 VBG HCO3 VBG O2 Saturation VBG Base Excess Anion Gap Estim Creat Clear Calc Estimated GFR Random Glucose Lactic Acid Calcium Magnesium Total Bilirubin Direct Bilirubin AST ALT Alkaline Phosphatase Ammonia Troponin I High Sens B-Natriuretic Peptide Total Protein Albumin Urine Color Yellow Urine Appearance Cloudy Urine pH 6.0 Ur Specific [place] 1.015 Urine Protein Negative Urine Glucose (UA) 500 H Urine Ketones Negative Urine Blood Negative Urine Nitrite Negative Ur Leukocyte Esterase Negative Urine Opiates Screen Not Detected Ur Buprenorphine Scrn Not Detected Ur Oxycodone Screen Positive H Urine Methadone Screen Not Detected Urine Fentanyl Screen Not Detected Ur Barbiturates Screen Not Detected Ur Phencyclidine Scrn Not Detected Ur Amphetamines Screen Not Detected U Benzodiazepines Scrn Not Detected Urine Cocaine Screen Not Detected U Marijuana (THC) Screen Not Detected Influenza Type A (PCR) Influenza Type B (PCR) RSV RNA Qual (PCR) SARS-CoV-2 RNA (RT-PCR) Imaging Radiologist's Impressions: Impressions Chest X-Ray 01/10/24 23:26 IMPRESSION: Coarsened appearance of the interstitium and more confluent opacities of the left lung, similar to possibly slightly increased compared to prior. Appearance could reflect persistent/recurrent infection, though developing interstitial lung disease is also a possibility. Assessment and Plan (1) Hypoxic respiratory failure: Status: Acute (2) COPD exacerbation: Status: Acute Plan This is a 78-year-old female with pertinent history of paroxysmal atrial fibrillation on Eliquis, chronic hypoxic respiratory failure on 2 L baseline supplemental oxygen, gout, congestive heart failure with preserved EF, gout, insulin-dependent diabetes mellitus, history of dysphagia with aspiration pneumonia who was sent to the emergency department for evaluation of hypoxia. #. Acute on chronic hypoxemic respiratory failure secondary to exacerbation of COPD due to likely aspiration pneumonia: Will admit patient with supplemental oxygen. Initiating systemic steroids, scheduled and p.r.n. DuoNebs. Monitor supplemental oxygen and wean as tolerated. Continue home inhaler. Initiating empiric IV antibiotics. Will keep patient NPO and consult speech. CT chest pending #. Sepsis due to above: Received IV crystalloids in the ER. Lactic acid blood culture obtained #. Insulin-dependent diabetes mellitus with hyperglycemia: Initiating basal plus insulin regimen #. Paroxysmal atrial fibrillation: Patient on Eliquis, rate controlled in the ER. Continue amiodarone and Cardizem #. Gout: On allopurinol #. Congestive heart failure with preserved EF: No decompensation during admission. Continue home Lasix #. Mood disorder: Continue home mood stabilizers Med rec pending DVT prophylaxis: Eliquis Full code. Admit as inpatient and will require two night minimum hospital stay for supplemental oxygen, IV steroids, IV antibiotics (as above), which is not possible in a lesser acute setting. Quality Stroke Does the patient have a stroke diagnosis?: No VTE Prior VTE?: No VTE Risk Level:: Medical - moderate - high VTE Device Contraindication: Treatment Not Indicated VTE Drug Contraindication: N/A - Med Ordered
[2024-01-11] MEDS: LORazepam 2 MG/ML VIAL 0.5 MG IVPUSH ×2 (02:22→15:45)
[2024-01-11 02:58] LABS: Glucose, Whole Blood 300 mg/dL (60-115)
[2024-01-11] MEDS: Insulin Glargine,Hum.rec.anlog 100 UNIT/ML 10 ML VIAL 10 UNIT SUBCUT (03:15)
--- NOTE | 2024-01-11 05:41 | PC.NURSE ---
Comes in from [facility] on 2-3 L baseline 02. Was found hypoix in the 50s. Pt is DNI but do resuscitate. PMH: Afib on eliquis, DM COPD CHF urinary incontinence, cough. Trop 45 BNP 154 . IV 20 RAC IV 20 LAC. Pt is on CPAP . Pt has pneumonia and NPO for aspiration precaution. Stay to monitor o2, IV steroids, antibiotics. POC 300 @2:54 , gave lantus but held insulin per NPO
--- NOTE | 2024-01-11 06:12 | PC.NURSE ---
called pharmacy, they will bring down antiobiotic
[2024-01-11] MEDS: Ampicillin Sodium/Sulbactam Na 3 GM in 0.9 % Sodium Chloride 100 ML IV ×3 (06:21→16:58)
--- NOTE | 2024-01-11 07:04 | PC.NURSE ---
This RN resumed care, pt attempting to removed CPAP, she is thrashing in the bed causing skin tears. Provider notified with concerns of patient placement on medsurg, along with patient overall goals of care in regards to CPAP. Per provider they want to trial patient off CPAP and on O2. Pt emotionally distraught over wanting water right now. Resp paged to bedside. Pt currently on 7L oxy mask and was sponged fed some water.
[2024-01-11] MEDS: Albuterol/Iprat 2.5/0.5MG 3 ML AMPUL.NEB INHALE ×2 (07:25→15:32)
[2024-01-11 07:33] LABS: Glucose, Whole Blood 395 mg/dL (60-115)
[2024-01-11] MEDS: Furosemide 40 MG/4 ML VIAL IVPUSH ×2 (08:46→16:57)
[2024-01-11] MEDS: Insulin Lispro 100 UNIT/ML 3 ML VIAL SUBCUT ×4 (08:49→20:30)
[2024-01-11] MEDS: methylPREDNISolone Sod Succ 40 MG/ML VIAL IVPUSH ×2 (08:49→20:28)
--- NOTE | 2024-01-11 09:21 | HO.PM.IMPN ---
Subjective Subjective Date of Service: 01/11/24 Interval History: sob, wants go home Physical Exam Vital Signs: Vital Signs: Last Vital Signs Temp 97.2 F 01/11/24 02:51 Pulse 117 H 01/11/24 07:37 Resp 26 H 01/11/24 07:37 BP 141/66 H 01/11/24 08:46 Pulse Ox 96 01/11/24 07:37 O2 Del Method Oxymask 01/11/24 07:37 O2 Flow Rate 7 01/11/24 07:37 FiO2 40 01/11/24 02:51 BMI result Body Mass Index 32.2 alert, anxious, agitated, accessory muscles, diminished lung sounds, rapid irregular heart rate Objective Data Active Medications Acetaminophen (Acetaminophen 325 Mg Tablet) 650 mg PO Q6H PRN PRN Reason: Pain, Mild (Pain Scale 1-3), fever or headache Albuterol/Ipratropium (Albuterol/Iprat 2.5/0.5mg 3 Ml Ampul.Neb) 3 ml INHALE RQ4H WHILE AWAKE [facility] Last Admin: 01/11/24 07:25 Dose: 3 ml Documented By: ISABELLE Albuterol/Ipratropium (Albuterol/Iprat 2.5/0.5mg 3 Ml Ampul.Neb) 3 ml INHALE Q4H PRN PRN Reason: Wheezing Amiodarone HCl (Amiodarone Hcl 200 Mg Tablet) 200 mg PO DAILY [facility] Apixaban (Apixaban 5 Mg Tablet) 5 mg PO BID [facility] Calcium Carbonate (Calcium Carbonate 750 Mg Tab.Chew) 750 mg PO Q4H PRN PRN Reason: Heartburn Diltiazem HCl (Diltiazem Hcl Cd 240 Mg Cap.Er.Deg) 240 mg PO DAILY [facility]; Protocol Glucose (Glucose Gel 15 Gm Gel..Gram.) 15 gm PO Q15M PRN; Protocol PRN Reason: per Hypoglycemia Standing Ord. Dextrose (D10) 250 mls @ 750 mls/hr IV Q15M PRN; Protocol PRN Reason: per Hypoglycemia Standing Ord. Ampicillin Sodium/Sulbactam (Sodium 3 gm/ Sodium Chloride) 100 mls @ 200 mls/hr IV Q6H [facility] Last Infusion: 01/11/24 07:23 Dose: Infused Documented By: JAROCHO Insulin Human Lispro (Insulin Lispro 100 Unit/Ml 3 Ml Vial) 0 unit SUBCUT Q6H [facility]; Protocol Last Admin: 01/11/24 08:49 Dose: 10 unit Documented By: JAROCHO Magnesium Hydroxide (Milk Of Magnesia 30 Ml Oral.Susp) 30 ml PO DAILY PRN PRN Reason: Constipation Melatonin (Melatonin 3 Mg Tablet) 6 mg PO BEDTIME PRN PRN Reason: Insomnia Methylprednisolone Sodium Succinate (Methylprednisolone Sod Succ 40 Mg/Ml Vial) 40 mg IVPUSH Q12H [facility] Last Admin: 01/11/24 08:49 Dose: 40 mg Documented By: JAROCHO Morphine Sulfate (Morphine Sulfate 2 Mg/Ml Cartridge) 2 mg IVPUSH Q4H PRN; Protocol PRN Reason: sob, air hunger Ondansetron HCl (Ondansetron Hcl 4 Mg/2 Ml Vial) 4 mg IVPUSH Q8H PRN PRN Reason: Nausea and Vomiting Sodium Chloride (0.9 % Sodium Chloride Flush 3 Ml Syringe) 3 ml IVFLUSH QSHIFT [facility] Labs 01/10/24 23:06 01/10/24 23:06 Labs: Laboratory Results - last 24 hr 01/10/24 01/10/24 01/10/24 23:06 23:11 23:29 MCV 91.5 MCH 28.2 MCHC 30.8 L RDW 14.7 Plt Count 244 MPV 10.2 Immature Gran % (Auto) 0.4 Neut % (Auto) 85.2 H Lymph % (Auto) 8.6 L [place] % (Auto) 5.6 Eos % (Auto) 0.1 Baso % (Auto) 0.1 Lymph # (Auto) 1.0 L [place] # (Auto) 0.6 Eos # (Auto) 0.0 Baso # (Auto) 0.0 Abs Immat Gran (auto) 0.05 H Absolute Neuts (auto) 9.5 H Absolute Nucleated RBC 0.000 Nucleated RBC % (auto) 0.0 PT 22.3 H D INR 1.8 H VBG pH 7.52 H VBG pCO2 48 VBG pO2 87 VBG HCO3 39 H VBG O2 Saturation 100.0 VBG Base Excess 14.8 Anion Gap 14 Estim Creat Clear Calc 52.0 Estimated GFR 56 POC Glucose Random Glucose 247 H Lactic Acid 1.3 Calcium 9.3 Magnesium 2.3 Total Bilirubin 0.3 Direct Bilirubin 0.1 AST 14 ALT 14 Alkaline Phosphatase 84 Ammonia 30 Troponin I High Sens 45.3 H D B-Natriuretic Peptide 154 H Total Protein 6.7 Albumin 3.9 Urine Color Urine Appearance Urine pH Ur Specific [place] Urine Protein Urine Glucose (UA) Urine Ketones Urine Blood Urine Nitrite Ur Leukocyte Esterase Urine Opiates Screen Ur Buprenorphine Scrn Ur Oxycodone Screen Urine Methadone Screen Urine Fentanyl Screen Ur Barbiturates Screen Ur Phencyclidine Scrn Ur Amphetamines Screen U Benzodiazepines Scrn Urine Cocaine Screen U Marijuana (THC) Screen Influenza Type A (PCR) NEGATIVE Influenza Type B (PCR) NEGATIVE RSV RNA Qual (PCR) NEGATIVE SARS-CoV-2 RNA (RT-PCR) NEGATIVE 01/10/24 01/11/24 01/11/24 23:49 02:54 07:29 MCV MCH MCHC RDW Plt Count MPV Immature Gran % (Auto) Neut % (Auto) Lymph % (Auto) [place] % (Auto) Eos % (Auto) Baso % (Auto) Lymph # (Auto) [place] # (Auto) Eos # (Auto) Baso # (Auto) Abs Immat Gran (auto) Absolute Neuts (auto) Absolute Nucleated RBC Nucleated RBC % (auto) PT INR VBG pH VBG pCO2 VBG pO2 VBG HCO3 VBG O2 Saturation VBG Base Excess Anion Gap Estim Creat Clear Calc Estimated GFR POC Glucose 300 H 395 H* Random Glucose Lactic Acid Calcium Magnesium Total Bilirubin Direct Bilirubin AST ALT Alkaline Phosphatase Ammonia Troponin I High Sens B-Natriuretic Peptide Total Protein Albumin Urine Color Yellow Urine Appearance Cloudy Urine pH 6.0 Ur Specific [place] 1.015 Urine Protein Negative Urine Glucose (UA) 500 H Urine Ketones Negative Urine Blood Negative Urine Nitrite Negative Ur Leukocyte Esterase Negative Urine Opiates Screen Not Detected Ur Buprenorphine Scrn Not Detected Ur Oxycodone Screen Positive H Urine Methadone Screen Not Detected Urine Fentanyl Screen Not Detected Ur Barbiturates Screen Not Detected Ur Phencyclidine Scrn Not Detected Ur Amphetamines Screen Not Detected U Benzodiazepines Scrn Not Detected Urine Cocaine Screen Not Detected U Marijuana (THC) Screen Not Detected Influenza Type A (PCR) Influenza Type B (PCR) RSV RNA Qual (PCR) SARS-CoV-2 RNA (RT-PCR) Assessment and Plan (1) COPD exacerbation: Status: Acute Plan 78F PMH pafib, chronic hypoxic respiraotry failure on 2L, gout, hfref, copd, dm, dysphagai, presented with hypoxia.sob Acute on chronic hypoxic respiratory failure secondary to COPD with acute decompensation, possible component of new ILD, possible component of sepsis and aspiration pneumonia and acute on chronic diastolic CHF Give 1 dose of IV Lasix and monitor response. Continue IV Unasyn Modified diet, follow-up speech IV steroids, bronchodilators Diabetes with hyperglycemia Basal bolus insulin Paroxysmal atrial fibrillation with rapid ventricular response Continue amiodarone, diltiazem, Eliquis DVT prophylaxis on Eliquis Do not intubate Patient with significant respiratory distress requiring higher levels of 02 and close monitoring, expected require at least 2 midnights inpatient Quality Stroke Does the patient have a stroke diagnosis?: No VTE Prior VTE?: No VTE Risk Level:: Medical - moderate - high VTE Device Contraindication: Treatment Not Indicated VTE Drug Contraindication: N/A - Med Ordered
[2024-01-11 10:01] LABS: Basophils Percent Auto 0.2 % (0-2); Hematocrit 28.8 % (37.0-47.0); Hemoglobin 8.4 g/dl (12.0-16.0); Imm Gran Abs Auto 0.08 X10*3/uL (0.00-0.03); Imm Gran Pct Auto 0.6 % (0.0-0.4); Lymphocytes Absolute Auto 0.2 X10*3/uL (1.2-4.9); Lymphocytes Percent Auto 1.2 % (20-40); MANUAL DIFF FLAG SCAN; Mean Corpuscular HGB Conc 29.2 g/dl (31.0-35.0); Mean Corpuscular Hemoglobin 27.8 pg (27.0-33.0); Mean Corpuscular Volume 95.4 fL (80.0-98.0); Monocytes Absolute Auto 0.1 X10*3/uL (0.1-1.2); Monocytes Percent Auto 1.1 % (2-11); NRBC Pct Auto 0.2 /100WBC (0.0-0.2); Neutrophils Absolute Auto 12.7 x10*3/uL (2.0-8.3); Neutrophils Percent Auto 96.9 % (45-73); PLT CLUMP 1; Red Blood Count 3.02 X10*6/uL (4.20-5.50); Red Cell Distribution Width 15.2 % (11.0-16.0); SCAN SMEAR FLAG 1
--- NOTE | 2024-01-11 10:10 | PHA.MEDREC ---
Addendum entered by Sarah Hernandez [facility] 01/11/24 10:22: Reviewed. List shows patient takes potassium chloride ER tablets with a sig of 20 mg at bedtime, however ER tablets come as MEQ. Then there is an order of just potassium tablets with a sig of 40 mEq however these only come in MG. I believe the sigs were switched. Original Note: Pharmacy Consult ? Medication Reconciliation Pharmacy has completed the medication reconciliation. Utilized list from [facility].
[2024-01-11 10:25] LABS: Anion Gap 18 (12-20); Blood Urea Nitrogen 22 mg/dL (9-16); Calcium 9.8 mg/dL (8.4-10.2); Carbon Dioxide 27 mmol/L (22-29); Chloride 100 mmol/L (96-108); Creatinine Clr Calc Pharmacy 50.4; Estimated Glomerular Filt Rate 54; Sodium 141 mmol/L (135-145)
--- NOTE | 2024-01-11 10:27 | PC.NURSE ---
Pt. came on the floor around 0945, constantly talking and not give herself time to catch her breath. Complaining that she is very upset and doesn't want to be here, constantly asking for water. Came on Oxy mask 7L. BUE and BLE deep bruises, whole body red rash, reddened, constantly moving in bed and banging her arms. Pt. not in a position to do admission assessment, not settled yet. [facility].
[2024-01-11 10:36] LABS: Mean Platelet Volume 11.1 fL (9.4-12.3); Platelet Count 214 X10*3/uL (160-400); White Blood Count 13.1 X10*3/uL (4.8-10.8)
[2024-01-11 10:39] LABS: Glucose Random 376 mg/dL (60-115); SLIDE REVIEW VERIFIED
[2024-01-11 10:56] LABS: Glucose, Whole Blood 305 mg/dL (60-115)
[2024-01-11] MEDS: Amiodarone HCL 200 MG TABLET PO (11:03)
[2024-01-11] MEDS: Apixaban 5 MG TABLET PO (11:03)
[2024-01-11] MEDS: dilTIAZem HCL CD 180 MG CAP.ER.24H 360 MG PO (11:03)
[2024-01-11] MEDS: Morphine Sulfate 2 MG/ML CARTRIDGE IVPUSH (11:07)
[2024-01-11 11:49] LABS: ABG Base Excess 10.9 mmol/L; ABG HCO3 36 mmol/L (22-26); ABG pCO2 52 mmHg (32-45); ABG pH 7.44 (7.35-7.45); ABG pO2 63 mmHg (83-108)
--- NOTE | 2024-01-11 12:05 | MHC.SL.SWA ---
Speech Pathologist Impression: Risk of aspiration, oropharyngeal dysphagia, hx silent aspiration Risk of Aspiration Due to: History of Pneumonia Dysphasia Diet Status: Downgrade to HTL Liquid Consistency and Strategies for Safe Swallow: Liquid Intake Recommendation: Honey Thick Liquid Intake Strategies: Small Sips No Straws Solid Food Consistency: Dietary Recommendations: Chopped/Advanced (NDD3) Additional Modifications to Solid Foods: Recommend CONTINUE on CHOPPED/ADVANCED (NDD3) diet and DOWNGRADE to HONEY THICK liquids, pills WHOLE in PUREE. Patient has history of silent aspiration, is very impulsive and demonstrates unsafe eating behaviors. She requires DIRECT SUPERVISION with all PO intake, close monitoring, and cues for aspiration precautions: take small bites, chew food well, alternate with sips of liquids, liquid by spoon or INDIVIDUAL cup sips, upright 90 degree position when eating and drinking (OOB if possible). Oral Medication Intake: Whole with Puree Please contact the pharmacy regarding appropriate crushable or liquid drug formulations that are available whenever modified delivery is recommended. Compensatory Strategies and Precautions to be Taken for Safe Swallow: Sitting Upright (90 deg) Double Swallow No Straw Small Bites and Sips Alternate Liquids/Solids Rate of Ingestion Change Oral Check Avoid Specific Foods Supervision While Eating and Drinking for Safe Swallow: Total Supervision (1:1) Foods to Avoid: Hard, tough to chew solids; mixed consistencies Swallowing Recommended Treatments: Compens. Strategy Educat. Recommendation for Speech: Inpatient Speech Therapy Speech Therapy through Rehab Facility Comment: MBSS 12/03/23 showing silent aspiration with thin liquids, patient has hx of noncompliance with modified diets. Frequency/Duration: M-F PRN Date Range for Service Req: Timeline to reassess: Geriatric Case Manager Clinican/Clinical Fellow: No Supervisory Statement: I have reviewed and agree with the student/clinical fellow's documentation: N/A Speech Language Pathologist: Angelina Hall M.A., CCC-NECKTIES PAINTER
--- NOTE | 2024-01-11 13:19 | PC.NURSE ---
assumed care of patient at 10:35 Patient initially admitted to med/surg, then transferred to med/tele due to rapid afib.
[2024-01-11] MEDS: Gabapentin 100 MG CAPSULE 200 MG PO (15:42)
[2024-01-11] MEDS: Cyclobenzaprine HCl 10 MG TABLET PO (15:43)
[2024-01-11] MEDS: Omeprazole 20 MG CAPSULE.DR PO (15:43)
[2024-01-11] MEDS: 0.9 % Sodium Chloride Flush 3 ML SYRINGE IVFLUSH (15:45)
[2024-01-11 16:25] LABS: Glucose, Whole Blood 486 mg/dL (60-115)
--- NOTE | 2024-01-11 16:57 | PM.CNPUL ---
History of Present Illness History of Present Illness Consult date: 01/11/24 Chief complaint: dyspnea Narrative: 78-year-old lady with underlying emphysema without fixed obstruction,?interstitial lung disease, on chronic supplemental O2 at 2 L, AFib on anticoagulation and amiodarone, with recent hospitalization at [facility] dyspnea and hypoxia readmitted on 01/11/2024 with worsening dyspnea and hypoxia. On initial evaluation patient deemed to have COPD exacerbation and treated with systemic glucocorticoids and nebulized bronchodilators. Upon further examination patient noted to pulmonary crackles with significantly positive fluid balance and elevated BNP and started on diuretic with some improvement. Review of Systems Constitutional: Constitutional: Denies daytime sleepiness, Denies excessive sweating, Denies fatigue, Denies fever(s), Denies lethargy, Denies malaise, Denies night sweats, Denies snoring and Denies weight loss Eyes: Eyes: Denies blurry vision and Denies itchy eyes ENT: Denies nasal congestion, Denies post nasal drip, Denies sinus pain, Denies sinus pressure and Denies other ( Thrush) Cardiovascular: Cardiovascular: Denies chest pain, Denies pedal edema, Reports dyspnea, Reports dyspnea on exertion, Reports orthopnea and Denies paroxysmal nocturnal dyspnea Respiratory: Respiratory: Denies cough, Denies hemoptysis, Denies excessive phlegm production, Reports dyspnea, Reports dyspnea on exertion, Denies snoring and Denies wheezing Gastrointestinal: Gastrointestinal: Denies abdominal pain and Denies heartburn Musculoskeletal: Musculoskeletal: Denies myalgias, Denies arthralgias and Denies joint swelling Integumentary/Breasts: Skin/Breast: Denies rash Neurologic: Denies memory loss and Denies seizure-like activity Psychiatric: Psychiatric: Denies abnormal sleep pattern, Denies anxiety and Denies memory loss Endocrine: Endocrine: Denies excessive sweating, Denies fatigue and Denies heat intolerance Hematologic/Lymphatic: Hematologic/Lymphatic: Denies easy bruising Allergic/Immunologic: Allergic/Immunologic: Denies itchy eyes, Denies seasonal rhinorrhea and Denies wheezing PMFSH Past Medical History Medical History (Updated 01/11/24 @ 17:13 by Aric Tracey MD) Functional urinary incontinence Anxiety with restlessness Chronic back pain Chronic lung disease CHF (congestive heart failure), NYHA class II Paroxysmal A-fib Opiate dependence Atelectasis Bacteremia due to Enterococcus CHF (congestive heart failure) A-fib Diabetes Cough Hypoventilation syndrome Skin cancer of trunk Skin cancer of face COPD (chronic obstructive pulmonary disease) Failed back syndrome Family History Family History Father No problems noted. Mother No problems noted. Daughter Opiate dependence Substance use disorder Family/Other FH: mental illness Mental health disorder Surgical History Surgical History History of knee surgery History of shoulder surgery History of ankle surgery History of hip surgery Social History Social History Household Members: Unknown / Unable to assess Household Members Other:: daughter Housing: Unknown / Unable to assess Do you presently have visiting nurse or other home services: Yes Unable to assess alcohol history related to: Unknown Alcohol intake: never Comment: bilateral wrist restraints for airway safety Patient Tobacco Use Status: Former Tobacco user Tobacco use type: Cigarette e-Cigarette/Vaping Use: Never Used service: No Current occupational status: retired and disabled Cognitive needs: Yes Hearing needs: No Vision needs: Yes Meds Allergies Allergy/AdvReac Type Severity Reaction Status Date / Time aspirin [Aspirin] Allergy Mild NAUSEA Verified 01/10/24 22:59 codeine [Codeine] Allergy Mild VOMITING Verified 01/10/24 22:59 Active Medications: Current Medications Acetaminophen (Acetaminophen 325 Mg Tablet) 650 mg PO Q6H PRN PRN Reason: Pain, Mild (Pain Scale 1-3), fever or headache Albuterol/Ipratropium (Albuterol/Iprat 2.5/0.5mg 3 Ml Ampul.Neb) 3 ml INHALE RQ4H WHILE AWAKE [facility] Last Admin: 01/11/24 15:32 Dose: 3 ml Albuterol/Ipratropium (Albuterol/Iprat 2.5/0.5mg 3 Ml Ampul.Neb) 3 ml INHALE Q4H PRN PRN Reason: Wheezing Allopurinol (Allopurinol 300 Mg Tablet) 150 mg PO DAILY [facility] Amiodarone HCl (Amiodarone Hcl 200 Mg Tablet) 200 mg PO DAILY [facility] Last Admin: 01/11/24 11:03 Dose: 200 mg Apixaban (Apixaban 5 Mg Tablet) 5 mg PO BID [facility] Last Admin: 01/11/24 11:03 Dose: 5 mg Bisacodyl (Bisacodyl 10 Mg Supp.Rect) 10 mg UT DAILY PRN PRN Reason: Constipation Calcium Carbonate (Calcium Carbonate 750 Mg Tab.Chew) 750 mg PO Q4H PRN PRN Reason: Heartburn Cyclobenzaprine HCl (Cyclobenzaprine Hcl 10 Mg Tablet) 10 mg PO TID [facility] Last Admin: 01/11/24 15:43 Dose: 10 mg Diltiazem HCl (Diltiazem Hcl Cd 180 Mg Cap.Er.24h) 360 mg PO DAILY [facility]; Protocol Last Admin: 01/11/24 11:03 Dose: 360 mg Docusate Sodium (Docusate Sodium 100 Mg Capsule) 100 mg PO BID PRN PRN Reason: constipation Furosemide (Furosemide 40 Mg/4 Ml Vial) 40 mg IVPUSH BID@0900,1800 [facility]; Protocol Gabapentin (Gabapentin 100 Mg Capsule) 200 mg PO TID [facility] Last Admin: 01/11/24 15:42 Dose: 200 mg Glucose (Glucose Gel 15 Gm Gel..Gram.) 15 gm PO Q15M PRN; Protocol PRN Reason: per Hypoglycemia Standing Ord. Guaifenesin/Dextromethorphan (Guaifenesin Dm 600/30 1 Tab Tab.Er.12h) 1 tab PO BID [facility] Dextrose (D10) 250 mls @ 750 mls/hr IV Q15M PRN; Protocol PRN Reason: per Hypoglycemia Standing Ord. Ampicillin Sodium/Sulbactam (Sodium 3 gm/ Sodium Chloride) 100 mls @ 200 mls/hr IV Q6H [facility] Last Infusion: 01/11/24 12:08 Dose: Infused Insulin Glargine (Insulin Glargine,Hum.Rec.Anlog 100 Unit/Ml 10 Ml Vial) 20 unit SUBCUT BEDTIME [facility] Insulin Human Lispro (Insulin Lispro 100 Unit/Ml 3 Ml Vial) 0 unit SUBCUT QIDACHS [facility]; Protocol Last Admin: 01/11/24 11:06 Dose: 8 unit Lidocaine (Lidocaine 4 % Patch Adh..Patch) 1 patch TRANSDERMA DAILY [facility]; Protocol Magnesium Hydroxide (Milk Of Magnesia 30 Ml Oral.Susp) 30 ml PO DAILY PRN PRN Reason: Constipation Melatonin (Melatonin 3 Mg Tablet) 6 mg PO BEDTIME PRN PRN Reason: Insomnia Methylprednisolone Sodium Succinate (Methylprednisolone Sod Succ 40 Mg/Ml Vial) 40 mg IVPUSH Q12H [facility] Last Admin: 01/11/24 08:49 Dose: 40 mg Morphine Sulfate (Morphine Sulfate 2 Mg/Ml Cartridge) 2 mg IVPUSH Q4H PRN; Protocol PRN Reason: sob, air hunger Last Admin: 01/11/24 11:07 Dose: 2 mg Omeprazole (Omeprazole 20 Mg Capsule.Dr) 20 mg PO BID@0630,1630 [facility] Last Admin: 01/11/24 15:43 Dose: 20 mg Ondansetron HCl (Ondansetron Hcl 4 Mg/2 Ml Vial) 4 mg IVPUSH Q8H PRN PRN Reason: Nausea and Vomiting Paroxetine HCl (Paroxetine Hcl 30 Mg Tablet) 30 mg PO DAILY [facility] Sodium Chloride (0.9 % Sodium Chloride Flush 3 Ml Syringe) 3 ml IVFLUSH QSHIFT [facility] Last Admin: 01/11/24 15:45 Dose: 3 ml Home Medications ?Medication ?Instructions ?Recorded ?Confirmed ?Last Taken ?Type cyclobenzaprine 10 mg tablet 10 mg PO TID 12/13/23 01/11/24 12/18/23 History acetaminophen 500 mg capsule 500 mg PO TID PRN Pain 01/11/24 01/11/24 Unknown History bisacodyl 10 mg rectal suppository 10 mg UT DAILY PRN Constipation 01/11/24 01/11/24 Unknown History dextromethorphan-guaifenesin 30 1 tab PO BID 01/11/24 01/11/24 Unknown History mg-600 mg tablet extended [id number] hr (Mucus DM) diltiazem HCl 360 mg capsule,24 360 mg PO DAILY 01/11/24 01/11/24 Unknown History hr,extended release gabapentin 100 mg capsule 200 mg PO TID 01/11/24 01/11/24 Unknown History glucagon HCl 1 mg solution for 1 mg subcut Q20M PRN blood suger 01/11/24 01/11/24 Unknown History injection (Glucagon (HCl) Emergency Kit) insulin glargine 100 unit/mL (3 20 unit subcut BEDTIME 01/11/24 01/11/24 Unknown History mL) subcutaneous pen (Lantus Solostar U-100 Insulin) insulin lispro 100 unit/mL 2 - 8 unit QIDACHS 01/11/24 01/11/24 Unknown History subcutaneous solution (Admelog U-100 Insulin lispro) levofloxacin 750 mg tablet 750 mg PO DAILY 01/11/24 01/11/24 Unknown History magnesium hydroxide 311 mg 311 mg PO DAILY PRN Constipation 01/11/24 01/11/24 Unknown History chewable tablet naloxone 4 mg/actuation nasal 4 mg intranasal Q3M PRN Opioid 01/11/24 01/11/24 Unknown History spray (Narcan) Overdose nicotine 7 mg/24 hr daily 1 patch transdermal DAILY 01/11/24 01/11/24 Unknown History transdermal patch paroxetine HCl 30 mg tablet (Paxil) 30 mg PO DAILY 01/11/24 01/11/24 Unknown History potassium 20 mg chewable tablet 20 mg PO BEDTIME 01/11/24 01/11/24 Unknown History potassium chloride 20 mEq 40 meq PO BEDTIME 01/11/24 01/11/24 Unknown History tablet,extended release prednisone 10 mg tablet 10 mg PO DAILY 01/11/24 01/11/24 Unknown History prednisone 20 mg tablet 20 mg PO DAILY 01/11/24 01/11/24 Unknown History sodium phosphates 19 gram-7 118 ml UT DAILY PRN Constipation 01/11/24 01/11/24 Unknown History gram/118 mL enema (Fleet Enema) trazodone 50 mg tablet 25 mg PO Q6H PRN Anxiety 01/11/24 01/11/24 Unknown History Physical Exam Vital Signs: Vital Signs: Last Vital Signs Temp 97.1 F 01/11/24 15:42 Pulse 117 H 01/11/24 15:42 Resp 12 01/11/24 15:42 BP 152/64 H 01/11/24 15:42 Pulse Ox 90 L 01/11/24 15:42 O2 Del Method Humidified O2 01/11/24 15:42 O2 Flow Rate 7 01/11/24 15:42 FiO2 40 01/11/24 02:51 BMI result Body Mass Index 32.2 Const: General: no acute distress and alert Nutritional Appearance: not obese Orientation/consciousness: Other orientation findings ( oriented) HEENT: Head: Yes atraumatic Eyes: General: appearance normal, both eyes and all related structures Sclerae: sclerae normal EOM: EOMs intact bilaterally Neck: Neck: Yes supple Lymphatic: no lymphadenopathy noted Resp: Effort & Inspection: normal respiratory effort and no use of accessory muscles Auscultation: crackles (Bilateral) Cardio: Rate: tachycardic Rhythm: regular rhythm Heart sounds: no gallops, no murmurs and no rubs Skin: General skin exam: other ( warm) Extrem: General: No clubbing, No cyanosis and No edema Results Laboratory Findings 01/11/24 09:48 01/11/24 09:48 ABG, PT/INR, D-dimer: PT/INR, D-dimer PT 22.3 SEC (11.1-13.3) H D 01/10/24 23:06 INR 1.8 (0.9-1.1) H 01/10/24 23:06 Abnormal lab findings: Abnormal Labs 01/10/24 01/10/24 01/10/24 23:06 23:11 23:49 WBC 11.2 H RBC 3.16 L Hgb 8.9 L Hct 28.9 L MCHC 30.8 L Immature Gran % (Auto) Neut % (Auto) 85.2 H Lymph % (Auto) 8.6 L Gilmer % (Auto) Lymph # (Auto) 1.0 L Abs Immat Gran (auto) 0.05 H Absolute Neuts (auto) 9.5 H Absolute Nucleated RBC PT 22.3 H D INR 1.8 H ABG pCO2 at Pt Temp ABG pO2 at Pt Temp ABG HCO3 VBG pH 7.52 H VBG HCO3 39 H Carbon Dioxide 32 H BUN 19 H POC Glucose Random Glucose 247 H Troponin I High Sens 45.3 H D B-Natriuretic Peptide 154 H Urine Glucose (UA) 500 H Ur Oxycodone Screen Positive H 01/11/24 01/11/24 01/11/24 02:54 07:29 09:48 WBC 13.1 H RBC 3.02 L Hgb 8.4 L Hct 28.8 L MCHC 29.2 L Immature Gran % (Auto) 0.6 H Neut % (Auto) 96.9 H Lymph % (Auto) 1.2 L Gilmer % (Auto) 1.1 L Lymph # (Auto) 0.2 L Abs Immat Gran (auto) 0.08 H Absolute Neuts (auto) 12.7 H Absolute Nucleated RBC 0.020 H PT INR ABG pCO2 at Pt Temp ABG pO2 at Pt Temp ABG HCO3 VBG pH VBG HCO3 Carbon Dioxide BUN 22 H POC Glucose 300 H 395 H* Random Glucose 376 H* Troponin I High Sens B-Natriuretic Peptide Urine Glucose (UA) Ur Oxycodone Screen 01/11/24 01/11/24 01/11/24 10:52 11:39 16:20 WBC RBC Hgb Hct MCHC Immature Gran % (Auto) Neut % (Auto) Lymph % (Auto) Gilmer % (Auto) Lymph # (Auto) Abs Immat Gran (auto) Absolute Neuts (auto) Absolute Nucleated RBC PT INR ABG pCO2 at Pt Temp 52 H ABG pO2 at Pt Temp 63 L ABG HCO3 36 H VBG pH VBG HCO3 Carbon Dioxide BUN POC Glucose 305 H 486 H* Random Glucose Troponin I High Sens B-Natriuretic Peptide Urine Glucose (UA) Ur Oxycodone Screen Assessment and Plan (1) Hypoxic respiratory failure: Status: Acute (2) Pulmonary edema: Status: Resolved (3) COPD (chronic obstructive pulmonary disease): Qualifiers: COPD type: chronic bronchitis Chronic bronchitis type: simple Qualified Code(s): J41.0 - Simple chronic bronchitis Status: Inactive Plan Impression: 78-year-old lady with underlying COPD and AFib admitted with acute on chronic hypoxic respiratory failure treated for presumed COPD exacerbation, appears also have pulmonary edema. Recommendations: Agree with additional diuresis. Will recheck BNP and CT angio chest. 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 Agree with empiric treatment for COPD exacerbation. Procedures Date of Service Date of Service: 01/11/24
[2024-01-11] MEDS: Insulin Lispro 100 UNIT/ML 3 ML VIAL 10 UNIT SUBCUT (16:58)
[2024-01-11 18:00] LABS: B Type Natriuretic Peptide 196 pg/mL (<100)
[2024-01-11 20:03] LABS: Glucose, Whole Blood 201 mg/dL (60-115)
[2024-01-11] MEDS: Insulin Glargine,Hum.rec.anlog 100 UNIT/ML 10 ML VIAL 20 UNIT SUBCUT (20:30)
[2024-01-11 20:41] LABS: VBG Base Excess 16.4 mmol/L; VBG HCO3 39 mmol/L (22-26); VBG pCO2 41 mmHg; VBG pH 7.59 (7.32-7.43); VBG pO2 210 mmHg
[2024-01-11 20:43] LABS: Venous Blood Gas Refer to POC result
--- NOTE | 2024-01-11 22:27 | PM.EVENT ---
Event Note Date of Service: 01/11/24 Event Note: Patient lethargic and tachypneic. Using accessory muscles. Obtained VBG. Discussed with Dr. Tracey, will switch to high-flow. Chest x ray pending Time Spent With Patient Time: Total time managing care of this patient today ____ minutes.
[2024-01-11 23:04] LABS: ABG Base Excess 15.2 mmol/L; ABG HCO3 41 mmol/L (22-26); ABG pCO2 60 mmHg (32-45); ABG pH 7.44 (7.35-7.45); ABG pO2 46 mmHg (83-108)
[2024-01-11 23:17] LABS: Basophils Percent Auto 0.1 % (0-2); Hemoglobin 7.9 g/dl (12.0-16.0); Imm Gran Abs Auto 0.12 X10*3/uL (0.00-0.03); Imm Gran Pct Auto 0.6 % (0.0-0.4); Lymphocytes Absolute Auto 0.5 X10*3/uL (1.2-4.9); Lymphocytes Percent Auto 2.6 % (20-40); MANUAL DIFF FLAG SCAN; Mean Corpuscular HGB Conc 30.4 g/dl (31.0-35.0); Mean Corpuscular Hemoglobin 27.8 pg (27.0-33.0); Mean Corpuscular Volume 91.5 fL (80.0-98.0); Mean Platelet Volume 10.2 fL (9.4-12.3); Monocytes Absolute Auto 0.9 X10*3/uL (0.1-1.2); Monocytes Percent Auto 4.3 % (2-11); NRBC Pct Auto 0.3 /100WBC (0.0-0.2); Neutrophils Absolute Auto 19.6 x10*3/uL (2.0-8.3); Neutrophils Percent Auto 92.4 % (45-73); Platelet Count 283 X10*3/uL (160-400); Red Blood Count 2.84 X10*6/uL (4.20-5.50); Red Cell Distribution Width 15.2 % (11.0-16.0); SCAN SMEAR FLAG 1; White Blood Count 21.2 X10*3/uL (4.8-10.8)
[2024-01-11 23:22] LABS: ABG Refer to POC result
--- NOTE | 2024-01-11 23:22 | P.PNCC_ITS ---
Critical Care Event Note Summary Date of Service: 01/11/24 Code activated: No Narrative: This case had a high probability of a clinically significant, sudden, or life threatening deterioration of this patient's condition which required my full and direct attention, intervention and personal management. Critical Care Time (minutes): 30 Comment: ?The patient is a 78-year-old female with a past medical history of COPD, chronic hypoxic respiratory failure on 2 L baseline, heart failure with preserved EF, paroxysmal atrial fibrillation (on? Eliquis), insulin-dependent diabetes mellitus,? dysphagia with frequent aspiration pneumonias who presented to the emergency department on? 01/10/2024? from longterm facility for evaluation of hypoxia.? Patient was admitted to Hospital Medicine with sepsis from aspiration pneumonia,? and COPD exacerbation? treated with systemic glucocorticoid steroid and nebulized bronchodilators.? Today? she had pulmonary crackles, positive fluid balance elevated BNP she was started on Lasix IV push.? ?Overnight,? patient? worsening mentation,? using accessory muscles, On 11 L via OxyMask. ? chest x-ray consistent with pulmonary edema.?? ?Will transfer to the ICU? for? hemodynamic monitoring and management of acute hypoxic respiratory failure from pulmonary edema.? ?No signs of severe sepsis,? patient had acute decompensation is due to pulmonary edema Plan:? ?Will place patient on high-flow and start Lasix drip
[2024-01-11 23:26] LABS: D Dimer High Sensitivity < 150 NG/ML
[2024-01-11 23:36] LABS: SLIDE REVIEW VERIFIED
[2024-01-11 23:40] LABS: Anion Gap 14 (12-20); Blood Urea Nitrogen 32 mg/dL (9-16); Calcium 9.7 mg/dL (8.4-10.2); Carbon Dioxide 35 mmol/L (22-29); Chloride 101 mmol/L (96-108); Creatinine Clr Calc Pharmacy 55.4; Estimated Glomerular Filt Rate > 60; Glucose Random 51 mg/dL (60-115); Potassium 3.8 mmol/L (3.3-5.1); Sodium 146 mmol/L (135-145)
[2024-01-11] MEDS: Furosemide 200 MG in 0.9 % Sodium Chloride 80 ML IVCONT (23:52)
[2024-01-11] MEDS: Dextrose 10 % 250 ML 750 ML IV (23:57)
[2024-01-12] VITALS (35 sets, daily range): BP systolic 97–138; BP diastolic 43–106; PULSE 105–151; RESP 19–273; TEMP 36.3–38.1; O2SAT 87–99
[2024-01-12] MEDS: Ampicillin Sodium/Sulbactam Na 3 GM in 0.9 % Sodium Chloride 100 ML IV ×5 (00:22→23:23)
[2024-01-12] MEDS: 0.9 % Sodium Chloride Flush 3 ML SYRINGE IVFLUSH ×4 (00:23→19:24)
[2024-01-12 00:42] LABS: Glucose, Whole Blood 199 mg/dL (60-115)
[2024-01-12] MEDS: Morphine Sulfate 2 MG/ML CARTRIDGE IVPUSH ×3 (03:18→14:17)
[2024-01-12] MEDS: LORazepam 2 MG/ML VIAL 0.5 MG IVPUSH (03:53)
[2024-01-12 04:31] LABS: VBG Base Excess 20.2 mmol/L; VBG HCO3 44 mmol/L (22-26); VBG pCO2 47 mmHg; VBG pH 7.57 (7.32-7.43); VBG pO2 68 mmHg
[2024-01-12 04:53] LABS: Basophils Percent Auto 0.1 % (0-2); Hematocrit 25.5 % (37.0-47.0); Hemoglobin 7.8 g/dl (12.0-16.0); Imm Gran Pct Auto 0.6 % (0.0-0.4); Lymphocytes Absolute Auto 0.4 X10*3/uL (1.2-4.9); Lymphocytes Percent Auto 2.1 % (20-40); MANUAL DIFF FLAG SCAN; Mean Corpuscular HGB Conc 30.6 g/dl (31.0-35.0); Mean Corpuscular Hemoglobin 27.9 pg (27.0-33.0); Mean Corpuscular Volume 91.1 fL (80.0-98.0); Mean Platelet Volume 10.4 fL (9.4-12.3); Monocytes Absolute Auto 0.3 X10*3/uL (0.1-1.2); Monocytes Percent Auto 1.7 % (2-11); NRBC Pct Auto 0.3 /100WBC (0.0-0.2); Neutrophils Absolute Auto 16.6 x10*3/uL (2.0-8.3); Neutrophils Percent Auto 95.5 % (45-73); Platelet Count 256 X10*3/uL (160-400); Red Cell Distribution Width 15.2 % (11.0-16.0); SCAN SMEAR FLAG 1; White Blood Count 17.4 X10*3/uL (4.8-10.8)
[2024-01-12 05:10] LABS: Alanine Aminotransferase 18 U/L (0-31); Albumin Level 3.7 g/dL (3.5-5.0); Alkaline Phosphatase 78 U/L (39-117); Anion Gap 17 (12-20); Aspartate Amino Transferase 22 U/L (5-31); Bilirubin Total 0.4 mg/dL (0.0-1.0); Blood Urea Nitrogen 27 mg/dL (9-16); Calcium 9.4 mg/dL (8.4-10.2); Carbon Dioxide 34 mmol/L (22-29); Chloride 96 mmol/L (96-108); Creatinine Clr Calc Pharmacy 53.1; Estimated Glomerular Filt Rate 57; Glucose Random 260 mg/dL (60-115); Magnesium 2.1 mg/dL (1.6-2.6); Potassium 3.2 mmol/L (3.3-5.1); Sodium 144 mmol/L (135-145); Total Protein 6.4 g/dL (6.5-8.0)
[2024-01-12] MEDS: Potassium Chloride Packet 20 MEQ PACKET 40 MEQ PO ×3 (06:36→15:51)
[2024-01-12 07:36] LABS: Glucose, Whole Blood 326 mg/dL (60-115)
[2024-01-12] MEDS: Apixaban 5 MG TABLET PO ×2 (07:45→20:43)
[2024-01-12] MEDS: Gabapentin 100 MG CAPSULE 200 MG PO ×3 (07:45→20:40)
[2024-01-12] MEDS: Amiodarone HCL 200 MG TABLET PO (07:45)
[2024-01-12] MEDS: dilTIAZem HCL CD 180 MG CAP.ER.24H 360 MG PO (07:45)
[2024-01-12] MEDS: Insulin Lispro 100 UNIT/ML 3 ML VIAL SUBCUT ×4 (07:46→20:42)
[2024-01-12] MEDS: allopurinoL 300 MG TABLET 150 MG PO (07:48)
[2024-01-12] MEDS: methylPREDNISolone Sod Succ 40 MG/ML VIAL IVPUSH (08:13)
[2024-01-12 08:33] LABS: Venous Blood Gas Refer to POC result
[2024-01-12] MEDS: Midazolam HCl/PF 2 MG/2 ML VIAL 1 MG IVPUSH (09:01)
--- NOTE | 2024-01-12 10:00 | P.PNCC_ITS ---
Subjective Subjective Date of Service: 01/12/24 Interval History: 78-year-old lady with underlying emphysema without fixed obstruction,?interstitial lung disease, on chronic supplemental O2 at 2 L, AFib on anticoagulation and amiodarone, with recent hospitalization at [facility] dyspnea and hypoxia readmitted on 01/11/2024 with worsening dyspnea and hypoxia. On initial evaluation patient deemed to have COPD exacerbation and treated with systemic glucocorticoids and nebulized bronchodilators. Upon further examination patient noted to pulmonary crackles with significantly positive fluid balance and elevated BNP and started on diuretic with some improvement. On 01/11/2024 in the evening patient with worsening hypoxia pulmonary edema requiring BiPAP support and transferred to intensive care unit, started on insulin drip with significant diuresis and improvement in FiO2 requirements overnight, titrated to high-flow nasal cannula. Critical Care Time (minutes): 60 Physical Exam 2 Vital Signs: Vital Signs: Last Vital Signs Temp 98.8 F 01/12/24 08:00 Pulse 140 H 01/12/24 09:00 Resp 30 H 01/12/24 09:00 BP 119/78 01/12/24 09:00 Pulse Ox 94 01/12/24 09:00 O2 Del Method High Flow Nasal C annula 01/12/24 09:00 O2 Flow Rate 55 01/12/24 09:00 FiO2 55 01/12/24 09:00 BMI result Body Mass Index 32.2 Const: General: no acute distress, alert, awake and anxious Eyes: Sclerae: sclerae normal EOM: EOMs intact bilaterally Neck: Neck: Yes no lymphadenopathy, Yes trachea midline and Yes supple Resp: Effort & Inspection: normal respiratory effort and no respiratory distress Auscultation: crackles (Bilateral) Cardio: Rate: tachycardic Rhythm: abnormal rhythm irregularly irregular Heart sounds: no gallops, no murmurs and no rubs GI: Palpation (GI): Soft to palpation and Other GI palpation findings present ( Nontender) Auscultation: normal bowel sounds Extrem: General: Yes no pedal edema, No clubbing and No cyanosis Objective Data Labs 01/12/24 04:24 01/12/24 04:24 Labs: Laboratory Results - last 24 hr 01/11/24 01/11/24 01/11/24 09:48 10:52 11:39 WBC 13.1 H RBC 3.02 L Hgb 8.4 L Hct 28.8 L MCV 95.4 MCH 27.8 MCHC 29.2 L RDW 15.2 Plt Count 214 MPV 11.1 Immature Gran % (Auto) 0.6 H Neut % (Auto) 96.9 H Lymph % (Auto) 1.2 L [place] % (Auto) 1.1 L Eos % (Auto) 0.0 Baso % (Auto) 0.2 Lymph # (Auto) 0.2 L [place] # (Auto) 0.1 Eos # (Auto) 0.0 Baso # (Auto) 0.0 Abs Immat Gran (auto) 0.08 H Absolute Neuts (auto) 12.7 H Absolute Nucleated RBC 0.020 H Nucleated RBC % (auto) 0.2 Smear Tech's Comments VERIFIED Hold Purple Top D-Dimer High Sensitivty O2 Saturation 91.0 ABG pH at Pt Temp 7.44 ABG pCO2 at Pt Temp 52 H ABG pO2 at Pt Temp 63 L ABG HCO3 36 H ABG Base Excess (Actual) 10.9 VBG pH VBG pCO2 VBG pO2 VBG HCO3 VBG O2 Saturation VBG Base Excess Sodium 141 Potassium 4.0 Chloride 100 Carbon Dioxide 27 Anion Gap 18 BUN 22 H Creatinine 0.99 Estim Creat Clear Calc 50.4 Estimated GFR 54 POC Glucose 305 H Random Glucose 376 H* Calcium 9.8 Phosphorus Magnesium Total Bilirubin AST ALT Alkaline Phosphatase Troponin I High Sens B-Natriuretic Peptide Total Protein Albumin Hold Yellow Top 01/11/24 01/11/24 01/11/24 16:20 17:22 19:53 WBC RBC Hgb Hct MCV MCH MCHC RDW Plt Count MPV Immature Gran % (Auto) Neut % (Auto) Lymph % (Auto) [place] % (Auto) Eos % (Auto) Baso % (Auto) Lymph # (Auto) [place] # (Auto) Eos # (Auto) Baso # (Auto) Abs Immat Gran (auto) Absolute Neuts (auto) Absolute Nucleated RBC Nucleated RBC % (auto) Smear Tech's Comments Hold Purple Top SEE NOTE D-Dimer High Sensitivty O2 Saturation ABG pH at Pt Temp ABG pCO2 at Pt Temp ABG pO2 at Pt Temp ABG HCO3 ABG Base Excess (Actual) VBG pH VBG pCO2 VBG pO2 VBG HCO3 VBG O2 Saturation VBG Base Excess Sodium Potassium Chloride Carbon Dioxide Anion Gap BUN Creatinine Estim Creat Clear Calc Estimated GFR POC Glucose 486 H* 201 H Random Glucose Calcium Phosphorus Magnesium Total Bilirubin AST ALT Alkaline Phosphatase Troponin I High Sens B-Natriuretic Peptide 196 H Total Protein Albumin Hold Yellow Top 01/11/24 01/11/24 01/11/24 20:29 22:55 23:07 WBC 21.2 H RBC 2.84 L Hgb 7.9 L Hct 26.0 L MCV 91.5 MCH 27.8 MCHC 30.4 L RDW 15.2 Plt Count 283 D MPV 10.2 Immature Gran % (Auto) 0.6 H Neut % (Auto) 92.4 H Lymph % (Auto) 2.6 L [place] % (Auto) 4.3 Eos % (Auto) 0.0 Baso % (Auto) 0.1 Lymph # (Auto) 0.5 L [place] # (Auto) 0.9 Eos # (Auto) 0.0 Baso # (Auto) 0.0 Abs Immat Gran (auto) 0.12 H Absolute Neuts (auto) 19.6 H Absolute Nucleated RBC 0.070 H Nucleated RBC % (auto) 0.3 H Smear Tech's Comments VERIFIED Hold Purple Top D-Dimer High Sensitivty < 150 O2 Saturation 76.0 ABG pH at Pt Temp 7.44 ABG pCO2 at Pt Temp 60 H* ABG pO2 at Pt Temp 46 L* ABG HCO3 41 H ABG Base Excess (Actual) 15.2 VBG pH 7.59 H VBG pCO2 41 VBG pO2 210 VBG HCO3 39 H VBG O2 Saturation TNP VBG Base Excess 16.4 Sodium 146 H Potassium 3.8 Chloride 101 Carbon Dioxide 35 H Anion Gap 14 BUN 32 H Creatinine 0.90 Estim Creat Clear Calc 55.4 Estimated GFR > 60 POC Glucose Random Glucose 51 L* Calcium 9.7 Phosphorus Magnesium Total Bilirubin AST ALT Alkaline Phosphatase Troponin I High Sens 94.0 H* D B-Natriuretic Peptide Total Protein Albumin Hold Yellow Top See Note 01/12/24 01/12/24 01/12/24 00:37 04:20 04:24 WBC 17.4 H RBC 2.80 L Hgb 7.8 L Hct 25.5 L MCV 91.1 MCH 27.9 MCHC 30.6 L RDW 15.2 Plt Count 256 MPV 10.4 Immature Gran % (Auto) 0.6 H Neut % (Auto) 95.5 H Lymph % (Auto) 2.1 L [place] % (Auto) 1.7 L Eos % (Auto) 0.0 Baso % (Auto) 0.1 Lymph # (Auto) 0.4 L [place] # (Auto) 0.3 Eos # (Auto) 0.0 Baso # (Auto) 0.0 Abs Immat Gran (auto) 0.10 H Absolute Neuts (auto) 16.6 H Absolute Nucleated RBC 0.050 H Nucleated RBC % (auto) 0.3 H Smear Tech's Comments Hold Purple Top D-Dimer High Sensitivty O2 Saturation ABG pH at Pt Temp ABG pCO2 at Pt Temp ABG pO2 at Pt Temp ABG HCO3 ABG Base Excess (Actual) VBG pH 7.57 H VBG pCO2 47 VBG pO2 68 VBG HCO3 44 H VBG O2 Saturation 94.0 VBG Base Excess 20.2 Sodium 144 Potassium 3.2 L Chloride 96 Carbon Dioxide 34 H Anion Gap 17 BUN 27 H Creatinine 0.94 Estim Creat Clear Calc 53.1 Estimated GFR 57 POC Glucose 199 H Random Glucose 260 H Calcium 9.4 Phosphorus 4.0 Magnesium 2.1 Total Bilirubin 0.4 AST 22 ALT 18 Alkaline Phosphatase 78 Troponin I High Sens B-Natriuretic Peptide Total Protein 6.4 L Albumin 3.7 Hold Yellow Top 01/12/24 07:33 WBC RBC Hgb Hct MCV MCH MCHC RDW Plt Count MPV Immature Gran % (Auto) Neut % (Auto) Lymph % (Auto) [place] % (Auto) Eos % (Auto) Baso % (Auto) Lymph # (Auto) [place] # (Auto) Eos # (Auto) Baso # (Auto) Abs Immat Gran (auto) Absolute Neuts (auto) Absolute Nucleated RBC Nucleated RBC % (auto) Smear Tech's Comments Hold Purple Top D-Dimer High Sensitivty O2 Saturation ABG pH at Pt Temp ABG pCO2 at Pt Temp ABG pO2 at Pt Temp ABG HCO3 ABG Base Excess (Actual) VBG pH VBG pCO2 VBG pO2 VBG HCO3 VBG O2 Saturation VBG Base Excess Sodium Potassium Chloride Carbon Dioxide Anion Gap BUN Creatinine Estim Creat Clear Calc Estimated GFR POC Glucose 326 H Random Glucose Calcium Phosphorus Magnesium Total Bilirubin AST ALT Alkaline Phosphatase Troponin I High Sens B-Natriuretic Peptide Total Protein Albumin Hold Yellow Top Microbiology Microbiology Results: Microbiology 01/10/24 23:15 Blood - Venous Blood Culture - Preliminary Enterococcus/Streptococcus sp 01/10/24 23:31 Blood - Venous Blood Culture - Preliminary No growth after 24 hours. Progress Note: A&P Assessment and plan (1) Hypoxic respiratory failure: Status: Acute (2) Pulmonary edema: Status: Resolved (3) Atrial fibrillation with rapid ventricular response: Status: Resolved (4) COPD (chronic obstructive pulmonary disease): Status: Inactive (5) DMII (diabetes mellitus, type 2): Status: Acute Plan Assessment: 78-year-old lady with underlying COPD on 2 L of O2 AFib admitted with acute on chronic hypoxic respiratory failure secondary to pulmonary edema improving with diuresis further complicated by AFib with RVR Plan: Neuro: No acute issues. Cardiac: Pulmonary edema with AFib with RVR improving with diuresis. Continue rate control. Pulmonary: Acute hypoxic respiratory failure secondary to pulmonary edema improving with diuresis. Briefly requiring BiPAP, now titrated off to high-flow nasal cannula. Underlying baseline 2 L dependent COPD. Continue nebulized bronchodilators. May have underlying aspiration component, continue on empiric Unasyn. Renal: No acute issues. Endo: No acute issues. Underlying diabetes mellitus. GI: No acute issues. ID: No acute issues Heme/Onc: No acute issues. Psych: No acute issues. Miscellaneous: No acute issues. Prophylaxis: Apixaban Diet: Diabetic Critical care time spent: 60 minute Quality Stroke Does the patient have a stroke diagnosis?: No VTE Prior VTE?: No VTE Risk Level:: Medical - moderate - high VTE Device Contraindication: Treatment Not Indicated VTE Drug Contraindication: N/A - Med Ordered
[2024-01-12] MEDS: Cyclobenzaprine HCl 10 MG TABLET PO ×3 (10:30→20:40)
[2024-01-12] MEDS: PARoxetine HCL 30 MG TABLET PO (10:31)
[2024-01-12] MEDS: guaiFENesin DM 600/30 1 TAB TAB.ER.12H PO ×2 (10:31→20:42)
[2024-01-12] MEDS: Digoxin 0.5 MG/2 ML AMPUL 0.25 MG IVPUSH ×3 (10:53→20:43)
[2024-01-12 11:19] LABS: Glucose, Whole Blood 204 mg/dL (60-115)
[2024-01-12] MEDS: Nystatin Powder 15 GM BOTTLE 1 APPL TOPICAL ×2 (12:33→21:04)
[2024-01-12] MEDS: Omeprazole 20 MG CAPSULE.DR PO (15:53)
[2024-01-12 16:19] LABS: Glucose, Whole Blood 380 mg/dL (60-115)
[2024-01-12 16:19] LABS: Glucose, Whole Blood 409 mg/dL (60-115)
--- NOTE | 2024-01-12 16:33 | MHC.CM.PN ---
IMM 01/12/24 to HCP (on file) via phone. Patient [facility] from [facility] SPO2 50%. The patient is dependent with care. She has a MOLST DO NOT Intubate. The patient is in ICU on [place]. Spoke with HCP Sade. The plan is to return to [facility] at discharge. DP [facility] via BLS.
[2024-01-12] MEDS: Insulin Glargine,Hum.rec.anlog 100 UNIT/ML 10 ML VIAL 15 UNIT SUBCUT (17:16)
[2024-01-12 18:55] LABS: Anion Gap 20 (12-20); Blood Urea Nitrogen 32 mg/dL (9-16); Calcium 9.8 mg/dL (8.4-10.2); Carbon Dioxide 33 mmol/L (22-29); Chloride 100 mmol/L (96-108); Creatinine Clr Calc Pharmacy 33.5; Estimated Glomerular Filt Rate 34; Glucose Random 506 mg/dL (60-115); Potassium 4.7 mmol/L (3.3-5.1); Sodium 148 mmol/L (135-145)
[2024-01-12 19:10] LABS: Glucose, Whole Blood 359 mg/dL (60-115)
[2024-01-12] MEDS: Furosemide 200 MG in 0.9 % Sodium Chloride 80 ML IVCONT (19:26)
[2024-01-12] MEDS: Insulin Regular, Human 100 UNIT/ML 10 ML VIAL IVPUSH (19:30)
--- NOTE | 2024-01-12 19:52 | PC.NURSE ---
Addendum entered by Virginia Jack RN 01/13/24 03:17: Pt afebrile on reassessment. POC rechecks done at 0:00 and 02:00 per DROP WORKER verbal request. Please see labs for full details. Addendum entered by Virginia Jack RN 01/12/24 21:30: Patient febrile 100.5 on rectal temp; DROP WORKER made aware and labs reviewed. Prn tylenol given and ice applied to bilateral axilla. Addendum entered by Virginia Jack RN 01/12/24 20:36: Repeat POC was 311 at 20:30. DROP WORKER made aware, orders to continues with 8 units lispro per MAR ISS and recheck POC at midnight. Original Note: Assumed care of patient at 19:00. Serum glucose back critical at 506 just prior to assuming care of the patient. DROP WORKER Jamin Mijares made aware with orders for 5 units regular insulin IVP with verbal orders to recheck POC one-hour post administration. Digoxin IVP ordered with DROP WORKER verbal order to give at 20:30. No UOP in [place] at 19:00. DROP WORKER made aware. Pt continues on lasix gtt.
[2024-01-12 20:35] LABS: Glucose, Whole Blood 311 mg/dL (60-115)
--- NOTE | 2024-01-12 21:02 | PM.EVENT ---
Documented by User: Jamin Mijares NP 01/12/24 21:04 Event Note Date of Service: 01/12/24 Event Note: Patient febrile, with known aspiration pneumonia, no evidence of severe sepsis Time Spent With Patient Time: Total time managing care of this patient today ____ minutes. Documented by User: Aric Tracey MD 01/13/24 10:41 Event Note Date of Service: 01/13/24
[2024-01-12] MEDS: Acetaminophen 325 MG TABLET 650 MG PO (21:04)
[2024-01-13] VITALS (22 sets, daily range): BP systolic 109–140; BP diastolic 41–73; PULSE 74–136; RESP 16–38; TEMP 36.1–36.9; O2SAT 86–98; BMI 29.2
[2024-01-13 00:13] LABS: Glucose, Whole Blood 147 mg/dL (60-115)
[2024-01-13 02:16] LABS: Glucose, Whole Blood 186 mg/dL (60-115)
[2024-01-13] MEDS: Morphine Sulfate 2 MG/ML CARTRIDGE IVPUSH (03:44)
[2024-01-13 04:47] LABS: VBG Base Excess 31.6 mmol/L; VBG HCO3 53 mmol/L (22-26); VBG pCO2 38 mmHg; VBG pH 7.75 (7.32-7.43); VBG pO2 57 mmHg
[2024-01-13 05:00] LABS: MANUAL DIFF FLAG NO
[2024-01-13 05:02] LABS: Basophils Percent Auto 0.1 % (0-2); Hematocrit 29.5 % (37.0-47.0); Hemoglobin 8.5 g/dl (12.0-16.0); Imm Gran Pct Auto 0.7 % (0.0-0.4); Lymphocytes Absolute Auto 0.7 X10*3/uL (1.2-4.9); Lymphocytes Percent Auto 4.8 % (20-40); Mean Corpuscular HGB Conc 28.8 g/dl (31.0-35.0); Mean Corpuscular Hemoglobin 27.2 pg (27.0-33.0); Mean Corpuscular Volume 94.2 fL (80.0-98.0); Mean Platelet Volume 10.6 fL (9.4-12.3); Monocytes Absolute Auto 0.9 X10*3/uL (0.1-1.2); NRBC Pct Auto 0.1 /100WBC (0.0-0.2); Neutrophils Absolute Auto 13.2 x10*3/uL (2.0-8.3); Neutrophils Percent Auto 88.4 % (45-73); Platelet Count 261 X10*3/uL (160-400); Red Blood Count 3.13 X10*6/uL (4.20-5.50); Red Cell Distribution Width 15.6 % (11.0-16.0); White Blood Count 14.9 X10*3/uL (4.8-10.8)
[2024-01-13 05:17] LABS: Venous Blood Gas Refer to POC result
[2024-01-13 05:25] LABS: Alanine Aminotransferase 16 U/L (0-31); Albumin Level 3.7 g/dL (3.5-5.0); Alkaline Phosphatase 79 U/L (39-117); Anion Gap 17 (12-20); Aspartate Amino Transferase 16 U/L (5-31); Bilirubin Total 0.5 mg/dL (0.0-1.0); Blood Urea Nitrogen 33 mg/dL (9-16); Calcium 9.3 mg/dL (8.4-10.2); Carbon Dioxide 40 mmol/L (22-29); Chloride 99 mmol/L (96-108); Estimated Glomerular Filt Rate 55; Glucose Random 296 mg/dL (60-115); Phosphorus 3.3 mg/dL (2.7-4.5); Potassium 3.6 mmol/L (3.3-5.1); Sodium 152 mmol/L (135-145); Total Protein 6.4 g/dL (6.5-8.0)
[2024-01-13] MEDS: Ampicillin Sodium/Sulbactam Na 3 GM in 0.9 % Sodium Chloride 100 ML IV ×4 (05:33→23:10)
[2024-01-13] MEDS: Omeprazole 20 MG CAPSULE.DR PO ×2 (05:33→17:43)
[2024-01-13 07:25] LABS: Glucose, Whole Blood 286 mg/dL (60-115)
[2024-01-13 07:35] LABS: VBG Base Excess 28.8 mmol/L; VBG HCO3 52 mmol/L (22-26); VBG pCO2 43 mmHg; VBG pH 7.68 (7.32-7.43); VBG pO2 62 mmHg
[2024-01-13] MEDS: guaiFENesin DM 600/30 1 TAB TAB.ER.12H PO (07:51)
[2024-01-13] MEDS: Apixaban 5 MG TABLET PO (07:51)
[2024-01-13] MEDS: Cyclobenzaprine HCl 10 MG TABLET PO ×2 (07:51→17:42)
[2024-01-13] MEDS: PARoxetine HCL 30 MG TABLET PO (07:51)
[2024-01-13] MEDS: dilTIAZem HCL CD 180 MG CAP.ER.24H 360 MG PO (07:51)
[2024-01-13] MEDS: Gabapentin 100 MG CAPSULE 200 MG PO ×2 (07:52→17:42)
[2024-01-13] MEDS: allopurinoL 300 MG TABLET 150 MG PO (07:53)
[2024-01-13] MEDS: Amiodarone HCL 200 MG TABLET PO (07:53)
[2024-01-13] MEDS: Insulin Lispro 100 UNIT/ML 3 ML VIAL SUBCUT ×4 (07:53→20:00)
[2024-01-13] MEDS: Insulin Glargine,Hum.rec.anlog 100 UNIT/ML 10 ML VIAL 15 UNIT SUBCUT (07:53)
[2024-01-13] MEDS: 0.9 % Sodium Chloride Flush 3 ML SYRINGE IVFLUSH ×3 (07:54→23:10)
[2024-01-13] MEDS: Albuterol/Iprat 2.5/0.5MG 3 ML AMPUL.NEB INHALE ×4 (07:55→19:24)
[2024-01-13 09:11] LABS: Venous Blood Gas Refer to POC result
[2024-01-13] MEDS: Potassium Chloride Packet 20 MEQ PACKET 40 MEQ PO (09:22)
[2024-01-13] MEDS: Nystatin Powder 15 GM BOTTLE 1 APPL TOPICAL ×2 (09:24→23:09)
--- NOTE | 2024-01-13 10:41 | PM.CCPN ---
Subjective Subjective Date of Service: 01/13/24 Interval History: 78-year-old lady with underlying emphysema without fixed obstruction,?interstitial lung disease, on chronic supplemental O2 at 2 L, AFib on anticoagulation and amiodarone, with recent hospitalization at [facility] dyspnea and hypoxia readmitted on 01/11/2024 with worsening dyspnea and hypoxia. On initial evaluation patient deemed to have COPD exacerbation and treated with systemic glucocorticoids and nebulized bronchodilators. Upon further examination patient noted to pulmonary crackles with significantly positive fluid balance and elevated BNP and started on diuretic with some improvement. On 01/11/2024 in the evening patient with worsening hypoxia pulmonary edema requiring BiPAP support and transferred to intensive care unit, started on insulin drip with significant diuresis and improvement in FiO2 requirements overnight, titrated to high-flow nasal cannula. No events overnight. FiO2 requirements improving. AFib with RVR improved. Critical Care Time (minutes): 0 Physical Exam Vital Signs: Vital Signs: Last Vital Signs Temp 98.5 F 01/13/24 08:00 Pulse 117 H 01/13/24 10:00 Resp 30 H 01/13/24 10:00 BP 123/56 L 01/13/24 10:00 Pulse Ox 90 L 01/13/24 10:00 O2 Del Method High Flow Nasal C annula 01/13/24 10:00 O2 Flow Rate 40 01/13/24 10:00 FiO2 40 01/13/24 10:00 BMI result Body Mass Index 29.2 Const: General: no acute distress and other (Sleeping, arousable, intermittently agitated) Eyes: Sclerae: sclerae normal EOM: EOMs intact bilaterally Neck: Neck: Yes no lymphadenopathy, Yes trachea midline and Yes supple Resp: Effort & Inspection: normal respiratory effort and no respiratory distress Auscultation: crackles (Bilateral) Cardio: Rate: tachycardic Rhythm: abnormal rhythm irregularly irregular Heart sounds: no gallops, no murmurs and no rubs GI: Palpation (GI): Soft to palpation and Other GI palpation findings present ( Nontender) Auscultation: normal bowel sounds Extrem: General: Yes no pedal edema, No clubbing and No cyanosis Objective Data Labs 01/13/24 04:41 01/13/24 04:41 Labs: Laboratory Results - last 24 hr 01/12/24 01/12/24 01/12/24 11:10 16:11 16:13 WBC RBC Hgb Hct MCV MCH MCHC RDW Plt Count MPV Immature Gran % (Auto) Neut % (Auto) Lymph % (Auto) [place] % (Auto) Eos % (Auto) Baso % (Auto) Lymph # (Auto) [place] # (Auto) Eos # (Auto) Baso # (Auto) Abs Immat Gran (auto) Absolute Neuts (auto) Absolute Nucleated RBC Nucleated RBC % (auto) VBG pH VBG pCO2 VBG pO2 VBG HCO3 VBG O2 Saturation VBG Base Excess Sodium Potassium Chloride Carbon Dioxide Anion Gap BUN Creatinine Estim Creat Clear Calc Estimated GFR POC Glucose 204 H 380 H* 409 H* Random Glucose Calcium Phosphorus Magnesium Total Bilirubin AST ALT Alkaline Phosphatase Total Protein Albumin 01/12/24 01/12/24 01/12/24 18:30 18:58 20:30 WBC RBC Hgb Hct MCV MCH MCHC RDW Plt Count MPV Immature Gran % (Auto) Neut % (Auto) Lymph % (Auto) [place] % (Auto) Eos % (Auto) Baso % (Auto) Lymph # (Auto) [place] # (Auto) Eos # (Auto) Baso # (Auto) Abs Immat Gran (auto) Absolute Neuts (auto) Absolute Nucleated RBC Nucleated RBC % (auto) VBG pH VBG pCO2 VBG pO2 VBG HCO3 VBG O2 Saturation VBG Base Excess Sodium 148 H Potassium 4.7 D Chloride 100 Carbon Dioxide 33 H Anion Gap 20 BUN 32 H Creatinine 1.49 H Estim Creat Clear Calc 33.5 Estimated GFR 34 POC Glucose 359 H* 311 H Random Glucose 506 H* Calcium 9.8 Phosphorus Magnesium Total Bilirubin AST ALT Alkaline Phosphatase Total Protein Albumin 01/13/24 01/13/24 01/13/24 00:09 01:56 04:38 WBC RBC Hgb Hct MCV MCH MCHC RDW Plt Count MPV Immature Gran % (Auto) Neut % (Auto) Lymph % (Auto) [place] % (Auto) Eos % (Auto) Baso % (Auto) Lymph # (Auto) [place] # (Auto) Eos # (Auto) Baso # (Auto) Abs Immat Gran (auto) Absolute Neuts (auto) Absolute Nucleated RBC Nucleated RBC % (auto) VBG pH 7.75 H* VBG pCO2 38 VBG pO2 57 VBG HCO3 53 H VBG O2 Saturation 93.0 VBG Base Excess 31.6 Sodium Potassium Chloride Carbon Dioxide Anion Gap BUN Creatinine Estim Creat Clear Calc Estimated GFR POC Glucose 147 H 186 H Random Glucose Calcium Phosphorus Magnesium Total Bilirubin AST ALT Alkaline Phosphatase Total Protein Albumin 01/13/24 01/13/24 01/13/24 04:41 07:21 07:26 WBC 14.9 H RBC 3.13 L Hgb 8.5 L Hct 29.5 L MCV 94.2 MCH 27.2 MCHC 28.8 L RDW 15.6 Plt Count 261 MPV 10.6 Immature Gran % (Auto) 0.7 H Neut % (Auto) 88.4 H Lymph % (Auto) 4.8 L [place] % (Auto) 6.0 Eos % (Auto) 0.0 Baso % (Auto) 0.1 Lymph # (Auto) 0.7 L [place] # (Auto) 0.9 Eos # (Auto) 0.0 Baso # (Auto) 0.0 Abs Immat Gran (auto) 0.10 H Absolute Neuts (auto) 13.2 H Absolute Nucleated RBC 0.020 H Nucleated RBC % (auto) 0.1 VBG pH 7.68 H* VBG pCO2 43 VBG pO2 62 VBG HCO3 52 H VBG O2 Saturation 94.0 VBG Base Excess 28.8 Sodium 152 H Potassium 3.6 D Chloride 99 Carbon Dioxide 40 H* D Anion Gap 17 BUN 33 H Creatinine 0.97 Estim Creat Clear Calc 49.0 Estimated GFR 55 POC Glucose 286 H Random Glucose 296 H Calcium 9.3 Phosphorus 3.3 Magnesium 2.0 Total Bilirubin 0.5 AST 16 ALT 16 Alkaline Phosphatase 79 Total Protein 6.4 L Albumin 3.7 Microbiology Microbiology Results: Microbiology 01/10/24 23:15 Blood - Venous Blood Culture - Preliminary Enterococcus faecium 01/10/24 23:31 Blood - Venous Blood Culture - Preliminary No growth after 48 hours. Progress Note: A&P Assessment and plan (1) Hypoxic respiratory failure: Status: Acute (2) DMII (diabetes mellitus, type 2): Status: Acute (3) A-fib: Status: Acute (4) CHF (congestive heart failure): Status: Acute (5) COPD (chronic obstructive pulmonary disease): Status: Inactive (6) Anxiety with restlessness: Status: Inactive Plan Assessment: 78-year-old lady with underlying COPD on 2 L of O2 AFib admitted with acute on chronic hypoxic respiratory failure secondary to pulmonary edema improving with diuresis further complicated by AFib with RVR Plan: Neuro: No acute issues. Cardiac: Pulmonary edema with AFib with RVR improving with diuresis. Continue rate control. Pulmonary: Acute hypoxic respiratory failure secondary to pulmonary edema improving with diuresis. Briefly requiring BiPAP, now titrated off to high-flow nasal cannula. Underlying baseline 2 L dependent COPD. Continue nebulized bronchodilators. May have underlying aspiration component, continue on empiric Unasyn. Continue to titrate off high-flow nasal cannula with O2 sat goal of 88-92%, now down to 30%. Renal: No acute issues. Endo: No acute issues. Underlying diabetes mellitus. GI: No acute issues. ID: No acute issues Heme/Onc: No acute issues. Psych: No acute issues. Miscellaneous: No acute issues. Prophylaxis: Apixaban Diet: Diabetic Quality Stroke Does the patient have a stroke diagnosis?: No VTE Prior VTE?: No VTE Risk Level:: Medical - moderate - high VTE Device Contraindication: Treatment Not Indicated VTE Drug Contraindication: N/A - Med Ordered
[2024-01-13 11:06] LABS: Glucose, Whole Blood 184 mg/dL (60-115)
[2024-01-13] MEDS: Digoxin 0.125 MG TABLET PO (12:28)
[2024-01-13] MEDS: Linezolid/D5W 600 MG/300 ML PIGGYBACK 300 MG IV (14:16)
[2024-01-13 16:26] LABS: Glucose, Whole Blood 192 mg/dL (60-115)
--- NOTE | 2024-01-13 16:35 | PC.NURSE ---
Pt transferred ICU to [facility]. Assumed care for pt 16:00. Zafar removed 16:00 before leaving ICU. Pt DTV 22:00
[2024-01-13] MEDS: Furosemide 40 MG/4 ML VIAL IVPUSH (17:33)
[2024-01-13 20:16] LABS: Glucose, Whole Blood 177 mg/dL (60-115)
[2024-01-13 20:19] LABS: Glucose, Whole Blood 159 mg/dL (60-115)
[2024-01-14] VITALS (9 sets, daily range): BP systolic 128–153; BP diastolic 59–76; PULSE 68–126; RESP 18–24; TEMP 36.2–36.7; O2SAT 83–98; BMI 28.3
[2024-01-14] MEDS: Linezolid/D5W 600 MG/300 ML PIGGYBACK 300 MG IV ×2 (02:29→13:29)
[2024-01-14] MEDS: Morphine Sulfate 2 MG/ML CARTRIDGE IVPUSH ×3 (02:34→10:55)
--- NOTE | 2024-01-14 02:53 | PC.NURSE ---
patient coughing episode, coughed up a half dollar sized amount of creamy/tavarez thick sputum with mucus. patient began to cry following r/t embarrassment, RN reassured patient that it was okay. patient began to become agitated and grabbing at RN screaming, Give me some fucking water. RN assisted patient with spoonfuls of honey thickened water to which patient began to spit out water at RN and call the RN a bitch. RN was able to calm patient, administered more spoonfuls or honey thick water, then proceeded to check patient for incontinence, apply nystatin to breana fungal rash, and reposition patient. patient in high fowlers and sleeping after administering PRN pain medication, see MAR. VMT camera remains on patient at all times. bed alarm on.
[2024-01-14] MEDS: Ampicillin Sodium/Sulbactam Na 3 GM in 0.9 % Sodium Chloride 100 ML IV ×2 (05:11→10:48)
[2024-01-14] MEDS: Omeprazole 20 MG CAPSULE.DR PO ×2 (06:35→16:09)
[2024-01-14 08:01] LABS: Glucose, Whole Blood 359 mg/dL (60-115)
--- NOTE | 2024-01-14 09:12 | P.PNIM_ITS ---
Subjective Subjective Date of Service: 01/14/24 Interval History: thirsty Physical Exam 2 Vital Signs: Vital Signs: Last Vital Signs Temp 97.1 F 01/14/24 07:08 Pulse 126 H 01/14/24 07:08 Resp 20 01/14/24 07:08 BP 153/72 H 01/14/24 07:08 Pulse Ox 98 01/14/24 07:08 O2 Del Method Oxymizer 01/14/24 07:08 O2 Flow Rate 4 01/14/24 07:08 FiO2 35 01/13/24 13:00 BMI result Body Mass Index 28.3 Const: General: no acute distress and other (Sleeping, arousable, intermittently agitated) Eyes: Sclerae: sclerae normal EOM: EOMs intact bilaterally Neck: Neck: Yes no lymphadenopathy, Yes trachea midline and Yes supple Resp: Effort & Inspection: normal respiratory effort and no respiratory distress Auscultation: crackles (Bilateral) Cardio: Rate: tachycardic Rhythm: abnormal rhythm irregularly irregular Heart sounds: no gallops, no murmurs and no rubs GI: Palpation (GI): Soft to palpation and Other GI palpation findings present ( Nontender) Auscultation: normal bowel sounds Extrem: General: Yes no pedal edema, No clubbing and No cyanosis Objective Data Active Medications Acetaminophen (Acetaminophen 325 Mg Tablet) 650 mg PO Q6H PRN PRN Reason: Pain, Mild (Pain Scale 1-3), fever or headache Last Admin: 01/12/24 21:04 Dose: 650 mg Documented By: BASIA Albuterol/Ipratropium (Albuterol/Iprat 2.5/0.5mg 3 Ml Ampul.Neb) 3 ml INHALE RQ4H WHILE AWAKE [facility] Last Admin: 01/14/24 07:32 Dose: Not Given Documented By: ISABELLE Non-Admin Reason: Patient Asleep Albuterol/Ipratropium (Albuterol/Iprat 2.5/0.5mg 3 Ml Ampul.Neb) 3 ml INHALE Q4H PRN PRN Reason: Wheezing Allopurinol (Allopurinol 300 Mg Tablet) 150 mg PO DAILY [facility] Last Admin: 01/13/24 07:53 Dose: 150 mg Documented By: MAYELIN Amiodarone HCl (Amiodarone Hcl 200 Mg Tablet) 200 mg PO DAILY [facility] Last Admin: 01/13/24 07:53 Dose: 200 mg Documented By: MAYELIN Apixaban (Apixaban 5 Mg Tablet) 5 mg PO BID [facility] Last Admin: 01/13/24 22:59 Dose: Not Given Documented By: ROBBI Non-Admin Reason: patient spit out Bisacodyl (Bisacodyl 10 Mg Supp.Rect) 10 mg [place] DAILY PRN PRN Reason: Constipation Calcium Carbonate (Calcium Carbonate 750 Mg Tab.Chew) 750 mg PO Q4H PRN PRN Reason: Heartburn Cyclobenzaprine HCl (Cyclobenzaprine Hcl 10 Mg Tablet) 10 mg PO TID [facility] Last Admin: 01/13/24 22:59 Dose: Not Given Documented By: ROBBI Non-Admin Reason: patient spit out Digoxin (Digoxin 0.125 Mg Tablet) 0.125 mg PO DAILY [facility] Last Admin: 01/13/24 12:28 Dose: 0.125 mg Documented By: MAYELIN Diltiazem HCl (Diltiazem Hcl Cd 180 Mg Cap.Er.24h) 360 mg PO DAILY [facility]; Protocol Last Admin: 01/13/24 07:51 Dose: 360 mg Documented By: MAYELIN Docusate Sodium (Docusate Sodium 100 Mg Capsule) 100 mg PO BID PRN PRN Reason: constipation Furosemide (Furosemide 40 Mg/4 Ml Vial) 40 mg IVPUSH BID@0900,1800 [facility]; Protocol Last Admin: 01/13/24 17:33 Dose: 40 mg Documented By: JOSIANE Gabapentin (Gabapentin 100 Mg Capsule) 200 mg PO TID [facility] Last Admin: 01/13/24 22:59 Dose: Not Given Documented By: ROBBI Non-Admin Reason: patient spit out Glucose (Glucose Gel 15 Gm Gel..Gram.) 15 gm PO Q15M PRN; Protocol PRN Reason: per Hypoglycemia Standing Ord. Guaifenesin/Dextromethorphan (Guaifenesin Dm 600/30 1 Tab Tab.Er.12h) 1 tab PO BID [facility] Last Admin: 01/13/24 22:59 Dose: Not Given Documented By: ROBBI Non-Admin Reason: patient spit out Dextrose (D10) 250 mls @ 750 mls/hr IV Q15M PRN; Protocol PRN Reason: per Hypoglycemia Standing Ord. Last Infusion: 01/12/24 00:22 Dose: Infused Documented By: CHRISTA Ampicillin Sodium/Sulbactam (Sodium 3 gm/ Sodium Chloride) 100 mls @ 200 mls/hr IV Q6H [facility] Last Infusion: 01/14/24 05:38 Dose: Infused Documented By: ROBBI Linezolid (Zyvox/D5w) 600 mg in 300 mls @ 300 mls/hr IV Q12H [facility] Last Infusion: 01/14/24 03:32 Dose: Infused Documented By: ROBBI Insulin Glargine (Insulin Glargine,Hum.Rec.Anlog 100 Unit/Ml 10 Ml Vial) 15 unit SUBCUT DAILY [facility] Last Admin: 01/13/24 07:53 Dose: 15 unit Documented By: MAYELIN Insulin Human Lispro (Insulin Lispro 100 Unit/Ml 3 Ml Vial) 0 unit SUBCUT QIDACHS [facility]; Protocol Last Admin: 01/13/24 20:00 Dose: 2 unit Documented By: ROBBI Lidocaine (Lidocaine 4 % Patch Adh..Patch) 1 patch TRANSDERMA DAILY [facility]; Protocol Last Admin: 01/13/24 07:54 Dose: Not Given Documented By: MAYELIN Non-Admin Reason: Patient Refused Magnesium Hydroxide (Milk Of Magnesia 30 Ml Oral.Susp) 30 ml PO DAILY PRN PRN Reason: Constipation Melatonin (Melatonin 3 Mg Tablet) 6 mg PO BEDTIME PRN PRN Reason: Insomnia Morphine Sulfate (Morphine Sulfate 2 Mg/Ml Cartridge) 2 mg IVPUSH Q4H PRN; Protocol PRN Reason: sob, air hunger Last Admin: 01/14/24 06:35 Dose: 2 mg Documented By: ROBBI Nystatin (Nystatin Powder 15 Gm Bottle) 1 appl TOPICAL BID [facility]; Protocol Last Admin: 01/13/24 23:09 Dose: 1 appl Documented By: ROBBI Omeprazole (Omeprazole 20 Mg Capsule.) 20 mg PO BID@0630,1630 [facility] Last Admin: 01/14/24 06:35 Dose: 20 mg Documented By: ROBBI Ondansetron HCl (Ondansetron Hcl 4 Mg/2 Ml Vial) 4 mg IVPUSH Q8H PRN PRN Reason: Nausea and Vomiting Paroxetine HCl (Paroxetine Hcl 30 Mg Tablet) 30 mg PO DAILY [facility] Last Admin: 01/13/24 07:51 Dose: 30 mg Documented By: MAYELIN Sodium Chloride (0.9 % Sodium Chloride Flush 3 Ml Syringe) 3 ml IVFLUSH QSHIFT [facility] Last Admin: 01/13/24 23:10 Dose: 3 ml Documented By: ROBBI Labs 01/14/24 09:09 01/13/24 04:41 Labs: Laboratory Results - last 24 hr 01/13/24 01/13/24 01/13/24 11:01 16:19 19:59 POC Glucose 184 H 192 H 159 H 01/13/24 01/14/24 20:01 07:50 POC Glucose 177 H 359 H* Microbiology Microbiology Results: Microbiology 01/10/24 23:15 Blood Culture - Final Blood - Venous Enterococcus faecium Assessment and Plan (1) COPD exacerbation: Status: Acute Plan 78F PMH pafib, chronic hypoxic respiraotry failure on 2L, gout, hfref, copd, dm, dysphagai, presented with hypoxia.sob. 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, possible component of sepsis and aspiration pneumonia and acute on chronic diastolic CHF now with acute metabolic alkalosis, will change to diamox, continue to wean o2 Continue IV Unasyn, added zyvox for efaecium bacteremia, follow up repeat and ID Modified diet - ndd1, honey thick, LINUX SOLARIS ADMINISTRATOR following IV steroids discontinued, bronchodilators Diabetes with hyperglycemia Basal bolus insulin Paroxysmal atrial fibrillation with rapid ventricular response Continue amiodarone, diltiazem, Eliquis DVT prophylaxis on Eliquis Do not intubate reason for continued hospitalization:still sob, hypoxic Quality Stroke Does the patient have a stroke diagnosis?: No VTE Prior VTE?: No VTE Risk Level:: Medical - moderate - high VTE Device Contraindication: Treatment Not Indicated VTE Drug Contraindication: N/A - Med Ordered
[2024-01-14 09:14] LABS: MANUAL DIFF FLAG NO
[2024-01-14] MEDS: Furosemide 40 MG/4 ML VIAL IVPUSH (09:16)
[2024-01-14] MEDS: Insulin Glargine,Hum.rec.anlog 100 UNIT/ML 10 ML VIAL 15 UNIT SUBCUT (09:16)
[2024-01-14] MEDS: Insulin Lispro 100 UNIT/ML 3 ML VIAL SUBCUT ×2 (09:16→12:02)
[2024-01-14 09:17] LABS: Eosinophils Percent Auto 0.1 % (0-4); Hematocrit 33.1 % (37.0-47.0); Hemoglobin 9.3 g/dl (12.0-16.0); Imm Gran Abs Auto 0.04 X10*3/uL (0.00-0.03); Imm Gran Pct Auto 0.3 % (0.0-0.4); Lymphocytes Absolute Auto 0.9 X10*3/uL (1.2-4.9); Lymphocytes Percent Auto 7.5 % (20-40); Mean Corpuscular HGB Conc 28.1 g/dl (31.0-35.0); Mean Corpuscular Hemoglobin 27.7 pg (27.0-33.0); Mean Corpuscular Volume 98.5 fL (80.0-98.0); Mean Platelet Volume 9.7 fL (9.4-12.3); Monocytes Absolute Auto 0.7 X10*3/uL (0.1-1.2); Monocytes Percent Auto 5.9 % (2-11); NRBC Pct Auto 0.2 /100WBC (0.0-0.2); Neutrophils Absolute Auto 10.6 x10*3/uL (2.0-8.3); Neutrophils Percent Auto 86.2 % (45-73); Platelet Count 235 X10*3/uL (160-400); Red Blood Count 3.36 X10*6/uL (4.20-5.50); Red Cell Distribution Width 15.9 % (11.0-16.0); White Blood Count 12.3 X10*3/uL (4.8-10.8)
[2024-01-14] MEDS: 0.9 % Sodium Chloride Flush 3 ML SYRINGE IVFLUSH ×2 (09:17→16:10)
[2024-01-14 09:21] LABS: VBG Base Excess 29.6 mmol/L; VBG HCO3 56 mmol/L (22-26); VBG pCO2 69 mmHg; VBG pH 7.51 (7.32-7.43); VBG pO2 67 mmHg
[2024-01-14] MEDS: Lidocaine 4 % Patch ADH..PATCH 1 PATCH TRANSDERMA (09:25)
[2024-01-14 09:28] LABS: Venous Blood Gas Refer to POC result
[2024-01-14 10:05] LABS: Albumin Level 3.5 g/dL (3.5-5.0); Anion Gap 13 (12-20); Blood Urea Nitrogen 26 mg/dL (9-16); Calcium 9.1 mg/dL (8.4-10.2); Carbon Dioxide 47 mmol/L (22-29); Chloride 99 mmol/L (96-108); Creatinine Clr Calc Pharmacy 44.6; Estimated Glomerular Filt Rate 51; Glucose Random 441 mg/dL (60-115); Magnesium 2.3 mg/dL (1.6-2.6); Phosphorus 3.4 mg/dL (2.7-4.5); Potassium 3.7 mmol/L (3.3-5.1); Sodium 155 mmol/L (135-145)
[2024-01-14 10:21] LABS: Glucose, Whole Blood 351 mg/dL (60-115)
[2024-01-14] MEDS: Insulin Lispro 100 UNIT/ML 3 ML VIAL 15 UNIT SUBCUT (10:48)
[2024-01-14] MEDS: acetaZOLAMIDE sodium 500 MG VIAL IVPUSH ×2 (10:49→22:17)
--- NOTE | 2024-01-14 11:31 | MHC.CM.PN ---
Per rounds, pt. continues to require acute care. Update sent to [facility], she is on a bed hold there, DCP is for her to return there.
[2024-01-14 11:51] LABS: Glucose, Whole Blood 256 mg/dL (60-115)
--- NOTE | 2024-01-14 12:00 | MHC.SL.SWA ---
Speech Pathologist Impression: Risk of aspiration, oropharyngeal dysphagia, hx silent aspiration Risk of Aspiration Due to: History of Pneumonia Dysphasia Diet Status: No change Liquid Consistency and Strategies for Safe Swallow: Liquid Intake Recommendation: Honey Thick Liquid Intake Strategies: Small Sips No Straws Solid Food Consistency: Dietary Recommendations: Chopped/Advanced (NDD3) Additional Modifications to Solid Foods: Recommend CONTINUE on CHOPPED/ADVANCED (NDD3) diet and DOWNGRADE to HONEY THICK liquids, pills WHOLE in PUREE. Patient has history of silent aspiration, is very impulsive and demonstrates unsafe eating behaviors. She requires DIRECT SUPERVISION with all PO intake, close monitoring, and cues for aspiration precautions: take small bites, chew food well, alternate with sips of liquids, liquid by spoon or INDIVIDUAL cup sips, upright 90 degree position when eating and drinking (OOB if possible). Oral Medication Intake: Whole with Puree Please contact the pharmacy regarding appropriate crushable or liquid drug formulations that are available whenever modified delivery is recommended. Compensatory Strategies and Precautions to be Taken for Safe Swallow: Sitting Upright (90 deg) Double Swallow No Straw Small Bites and Sips Alternate Liquids/Solids Rate of Ingestion Change Avoid Specific Foods Supervision While Eating and Drinking for Safe Swallow: Total Assistance (1:1) Foods to Avoid: Hard, tough to chew solids; mixed consistencies Swallowing Recommended Treatments: Compens. Strategy Educat. Recommendation for Speech: Inpatient Speech Therapy Speech Therapy through Rehab Facility Comment: MBSS 12/03/23 showing silent aspiration with thin liquids, patient has hx of noncompliance with modified diets. Frequency/Duration: M-F PRN Date Range for Service Req: Timeline to reassess: Steel Inspector Clinican/Clinical Fellow: No Supervisory Statement: I have reviewed and agree with the student/clinical fellow's documentation: N/A Speech Language Pathologist: Angelina Hall M.A., CCC-PARTY DEMONSTRATOR
--- NOTE | 2024-01-14 12:14 | HO.WOUND ---
Wound Consult: Initial 78yr old?female admitted to [facility] on 01/11/24 - See progress notes and H&P for detailed history.? Wound consult placed for Left lower lateral leg wound.? Patient agreeable to assessment and photo documentation.? Left Lateral lower leg Etiology: ?Abrasion Measurements: 4cm x 3cm x 0.1cm Wound Bed: partial thickness tissue loss Drainage / Odor: yellow drainage noted on old dressing Edges: ? well defined Ailyn wound: ?Hyperpigmentation noted - hemosiderin staining noted - evidence of previous injury No Induration, Fluctuance or Warmth noted Pain: tenderness reported Goals of Treatment: ? moist wound healing with xeroform Recommendations: 1. Turn and Reposition every 2 hours and as needed for patient comfort.? Use pillows or wedges to support off loading positions. 2. Off Load all bony prominences with use of pillows and heel boots if needed.? Apply Preventative foams where needed. ? 3. Monitor for incontinence and moisture control, use barrier creams when needed for prevention and treatment. 4. Provide adequate and supplemental nutrition.? 5. Order or Continue low air loss mattress. 6. When applicable maintain blood glucose levels per Providers order. 7. Left Lower Lateral Leg - Cleanse with NS or PH balanced wipes, Pat dry.? Apply Skin prep to periwound.? Apply layer of Xeroform secure with ABD pad, gauze wrap and tape.? Do not apply tape to patients skin.? Avoid adhesive application to skin - when necessary apply skin prep prior.? Keep nails short, trimmed and smooth. Cover legs and arms with clothing as added protection. Change dressing Daily. Re-consult wound care Nurse for wound deterioration or wound changes.
--- NOTE | 2024-01-14 15:54 | P.CNID_ITS ---
History of Present Illness Data of Consult Service Date: 01/14/24 Requesting physician: Travis Avendaño Primary Care Provider: Ti Thompson PA-C HPI Reason for consult: enterococcus bacteremia She presents with hypoxia from outside facility. She has respiratory insufficiency and no urinary complaints. Enterococcus faecium present blood. Review of Systems 2 Review of Systems: Yes all other systems are reviewed and are negative PMFSH Past Medical History Medical History Functional urinary incontinence Anxiety with restlessness Chronic back pain Chronic lung disease CHF (congestive heart failure), NYHA class II Paroxysmal A-fib Opiate dependence Atelectasis Bacteremia due to Enterococcus CHF (congestive heart failure) A-fib Diabetes Cough Hypoventilation syndrome Skin cancer of trunk Skin cancer of face COPD (chronic obstructive pulmonary disease) Failed back syndrome Family History Family History Father No problems noted. Mother No problems noted. Daughter Opiate dependence Substance use disorder Family/Other FH: mental illness Mental health disorder Surgical History Surgical History History of knee surgery History of shoulder surgery History of ankle surgery History of hip surgery Social History Social History Household Members: Unknown / Unable to assess Household Members Other:: daughter Housing: Unknown / Unable to assess Do you presently have visiting nurse or other home services: Yes Unable to assess alcohol history related to: Unknown Alcohol intake: never Comment: bilateral wrist restraints for airway safety Patient Tobacco Use Status: Former Tobacco user Tobacco use type: Cigarette e-Cigarette/Vaping Use: Never Used service: No Current occupational status: retired and disabled Cognitive needs: Yes Hearing needs: No Vision needs: Yes Meds Allergies Allergy/AdvReac Type Severity Reaction Status Date / Time aspirin [Aspirin] Allergy Mild NAUSEA Verified 01/10/24 22:59 codeine [Codeine] Allergy Mild VOMITING Verified 01/10/24 22:59 Active Medications: Current Medications Acetaminophen (Acetaminophen 325 Mg Tablet) 650 mg PO Q6H PRN PRN Reason: Pain, Mild (Pain Scale 1-3), fever or headache Last Admin: 01/12/24 21:04 Dose: 650 mg Acetazolamide (Acetazolamide Sodium 500 Mg Vial) 500 mg IVPUSH Q12H [facility] Stop: 01/15/24 09:31 Last Admin: 01/14/24 10:49 Dose: 500 mg Albuterol/Ipratropium (Albuterol/Iprat 2.5/0.5mg 3 Ml Ampul.Neb) 3 ml INHALE RQ4H WHILE AWAKE [facility] Last Admin: 01/14/24 15:04 Dose: Not Given Albuterol/Ipratropium (Albuterol/Iprat 2.5/0.5mg 3 Ml Ampul.Neb) 3 ml INHALE Q4H PRN PRN Reason: Wheezing Allopurinol (Allopurinol 300 Mg Tablet) 150 mg PO DAILY [facility] Last Admin: 01/14/24 09:29 Dose: Not Given Amiodarone HCl (Amiodarone Hcl 200 Mg Tablet) 200 mg PO DAILY [facility] Last Admin: 01/14/24 09:29 Dose: Not Given Apixaban (Apixaban 5 Mg Tablet) 5 mg PO BID [facility] Last Admin: 01/14/24 09:30 Dose: Not Given Bisacodyl (Bisacodyl 10 Mg Supp.Rect) 10 mg [place] DAILY PRN PRN Reason: Constipation Calcium Carbonate (Calcium Carbonate 750 Mg Tab.Chew) 750 mg PO Q4H PRN PRN Reason: Heartburn Cyclobenzaprine HCl (Cyclobenzaprine Hcl 10 Mg Tablet) 10 mg PO TID [facility] Last Admin: 01/14/24 09:30 Dose: Not Given Digoxin (Digoxin 0.125 Mg Tablet) 0.125 mg PO DAILY [facility] Last Admin: 01/14/24 09:30 Dose: Not Given Diltiazem HCl (Diltiazem Hcl Cd 180 Mg Cap.Er.24h) 360 mg PO DAILY [facility]; Protocol Last Admin: 01/14/24 09:30 Dose: Not Given Docusate Sodium (Docusate Sodium 100 Mg Capsule) 100 mg PO BID PRN PRN Reason: constipation Gabapentin (Gabapentin 100 Mg Capsule) 200 mg PO TID [facility] Last Admin: 01/14/24 09:30 Dose: Not Given Glucose (Glucose Gel 15 Gm Gel..Gram.) 15 gm PO Q15M PRN; Protocol PRN Reason: per Hypoglycemia Standing Ord. Guaifenesin/Dextromethorphan (Guaifenesin Dm 600/30 1 Tab Tab.Er.12h) 1 tab PO BID [facility] Last Admin: 01/14/24 09:31 Dose: Not Given Dextrose (D10) 250 mls @ 750 mls/hr IV Q15M PRN; Protocol PRN Reason: per Hypoglycemia Standing Ord. Last Infusion: 01/12/24 00:22 Dose: Infused Linezolid (Zyvox/D5w) 600 mg in 300 mls @ 300 mls/hr IV Q12H [facility] Last Infusion: 01/14/24 14:38 Dose: Infused Insulin Glargine (Insulin Glargine,Hum.Rec.Anlog 100 Unit/Ml 10 Ml Vial) 15 unit SUBCUT DAILY [facility] Last Admin: 01/14/24 09:16 Dose: 15 unit Insulin Human Lispro (Insulin Lispro 100 Unit/Ml 3 Ml Vial) 0 unit SUBCUT QIDACHS [facility]; Protocol Last Admin: 01/14/24 15:54 Dose: Not Given Lidocaine (Lidocaine 4 % Patch Adh..Patch) 1 patch TRANSDERMA DAILY [facility]; Protocol Last Admin: 01/14/24 09:25 Dose: 1 patch Magnesium Hydroxide (Milk Of Magnesia 30 Ml Oral.Susp) 30 ml PO DAILY PRN PRN Reason: Constipation Melatonin (Melatonin 3 Mg Tablet) 6 mg PO BEDTIME PRN PRN Reason: Insomnia Morphine Sulfate (Morphine Sulfate 2 Mg/Ml Cartridge) 2 mg IVPUSH Q4H PRN; Protocol PRN Reason: sob, air hunger Last Admin: 01/14/24 10:55 Dose: 2 mg Nystatin (Nystatin Powder 15 Gm Bottle) 1 appl TOPICAL BID [facility]; Protocol Last Admin: 01/14/24 09:31 Dose: Not Given Omeprazole (Omeprazole 20 Mg Capsule.Dr) 20 mg PO BID@0630,1630 [facility] Last Admin: 01/14/24 06:35 Dose: 20 mg Ondansetron HCl (Ondansetron Hcl 4 Mg/2 Ml Vial) 4 mg IVPUSH Q8H PRN PRN Reason: Nausea and Vomiting Paroxetine HCl (Paroxetine Hcl 30 Mg Tablet) 30 mg PO DAILY [facility] Last Admin: 01/14/24 09:31 Dose: Not Given Sodium Chloride (0.9 % Sodium Chloride Flush 3 Ml Syringe) 3 ml IVFLUSH QSHIFT [facility] Last Admin: 01/14/24 09:17 Dose: 3 ml Home Medications ?Medication ?Instructions ?Recorded ?Confirmed ?Last Taken ?Type cyclobenzaprine 10 mg tablet 10 mg PO TID 12/13/23 01/11/24 12/18/23 History acetaminophen 500 mg capsule 500 mg PO TID PRN Pain 01/11/24 01/11/24 Unknown History bisacodyl 10 mg rectal suppository 10 mg [place] DAILY PRN Constipation 01/11/24 01/11/24 Unknown History dextromethorphan-guaifenesin 30 1 tab PO BID 01/11/24 01/11/24 Unknown History mg-600 mg tablet extended hr (Mucus DM) diltiazem HCl 360 mg capsule,24 360 mg PO DAILY 01/11/24 01/11/24 Unknown History hr,extended release gabapentin 100 mg capsule 200 mg PO TID 01/11/24 01/11/24 Unknown History glucagon HCl 1 mg solution for 1 mg subcut Q20M PRN blood suger 01/11/24 01/11/24 Unknown History injection (Glucagon (HCl) Emergency Kit) insulin glargine 100 unit/mL (3 20 unit subcut BEDTIME 01/11/24 01/11/24 Unknown History mL) subcutaneous pen (Lantus Solostar U-100 Insulin) insulin lispro 100 unit/mL 2 - 8 unit QIDACHS 01/11/24 01/11/24 Unknown History subcutaneous solution (Admelog U-100 Insulin lispro) levofloxacin 750 mg tablet 750 mg PO DAILY 01/11/24 01/11/24 Unknown History magnesium hydroxide 311 mg 311 mg PO DAILY PRN Constipation 01/11/24 01/11/24 Unknown History chewable tablet naloxone 4 mg/actuation nasal 4 mg intranasal Q3M PRN Opioid 01/11/24 01/11/24 Unknown History spray (Narcan) Overdose nicotine 7 mg/24 hr daily 1 patch transdermal DAILY 01/11/24 01/11/24 Unknown History transdermal patch paroxetine HCl 30 mg tablet (Paxil) 30 mg PO DAILY 01/11/24 01/11/24 Unknown History potassium 20 mg chewable tablet 20 mg PO BEDTIME 01/11/24 01/11/24 Unknown History potassium chloride 20 mEq 40 meq PO BEDTIME 01/11/24 01/11/24 Unknown History tablet,extended release prednisone 10 mg tablet 10 mg PO DAILY 01/11/24 01/11/24 Unknown History prednisone 20 mg tablet 20 mg PO DAILY 01/11/24 01/11/24 Unknown History sodium phosphates 19 gram-7 118 ml [place] DAILY PRN Constipation 01/11/24 01/11/24 Unknown History gram/118 mL enema (Fleet Enema) trazodone 50 mg tablet 25 mg PO Q6H PRN Anxiety 01/11/24 01/11/24 Unknown History Physical Exam 2 Vital Signs: Vital Signs: Last Vital Signs Temp 98.0 F 01/14/24 10:57 Pulse 105 H 01/14/24 10:57 Resp 20 01/14/24 10:57 BP 148/59 H 01/14/24 10:57 Pulse Ox 94 01/14/24 10:57 O2 Del Method Oxymizer 01/14/24 10:57 O2 Flow Rate 2.5 01/14/24 10:57 FiO2 35 01/13/24 13:00 BMI result Body Mass Index 28.3 Const: General: cooperative HEENT: Head: Yes normal to inspection Face and sinus: Yes normal facial exam Mouth: Normal oral and palatal mucosa present Teeth and gingiva: d entition normal Eyes: General: appearance normal, both eyes and all related structures P upils: Equal, round and reactive pupils present Resp: Effort & Inspection: normal respiratory effort Cardio: Rate: regular rate Rhythm: regular rhythm GI: Palpation (GI): Soft to palpation and nontender : General: Yes no CVA tenderness Back/Spine/Pelvis: Back: no CVA tenderness Skin: General skin exam: no rashes or lesions noted Neuro: General: moves all extremities Cranial nerves: Yes Equal, round and reactive pupils present Extrem: General: Yes normal to inspection Psych: Appearance: grossly normal Results Labs 01/14/24 09:09 01/14/24 09:09 Labs: Short CBC 01/14/24 Range/Units 09:09 WBC 12.3 H (4.8-10.8) X10*3/uL Hgb 9.3 L (12.0-16.0) g/dl Hct 33.1 L (37.0-47.0) % Plt Count 235 (160-400) X10*3/uL BMP 01/14/24 09:09 Sodium 155 H Potassium 3.7 Chloride 99 Carbon Dioxide 47 H* BUN 26 H Creatinine 1.05 Calcium 9.1 Liver Function 01/14/24 Range/Units 09:09 Albumin 3.5 (3.5-5.0) g/dL Microbiology Microbiology Results: Microbiology 01/10/24 23:15 Blood - Venous Blood Culture - Final Enterococcus faecium 01/10/24 23:31 Blood - Venous Blood Culture - Preliminary No growth after 48 hours. Assessment and Plan (1) COPD exacerbation: Status: Acute Plan Fever as well so likely bacteremia real. Check TTE look endocrditis. Left knee follow exam Possible urine source If no signs endocarditis (check echo) po linezolid 14 days cover probable urine or skin source.
[2024-01-14 15:55] LABS: Glucose, Whole Blood 108 mg/dL (60-115)
[2024-01-14 15:58] LABS: VBG Base Excess 33.6 mmol/L; VBG HCO3 57 mmol/L (22-26); VBG pCO2 46 mmHg; VBG pO2 201 mmHg
[2024-01-14] MEDS: Gabapentin 100 MG CAPSULE 200 MG PO (16:09)
[2024-01-14] MEDS: Cyclobenzaprine HCl 10 MG TABLET PO (16:10)
[2024-01-14] MEDS: 0.9 % Sodium Chloride 1,000 ML 999 ML IV (16:10)
[2024-01-14 16:57] LABS: Venous Blood Gas Refer to POC result
[2024-01-14] MEDS: 0.9 % Sodium Chloride 1,000 ML 75 ML IVCONT (17:33)
--- NOTE | 2024-01-14 17:46 | PC.NURSE ---
patient appears to lethargic, nodding off. Made MD aware. MD ordered VBG. refer to blood gas results. MD ordered 2L bolus in accordance to the result.
[2024-01-14 19:52] LABS: Glucose, Whole Blood 135 mg/dL (60-115)
[2024-01-14] MEDS: Nystatin Powder 15 GM BOTTLE 1 APPL TOPICAL (22:21)
[2024-01-15] VITALS (15 sets, daily range): BP systolic 112–140; BP diastolic 46–65; PULSE 70–130; RESP 14–25; TEMP 36–37.2; O2SAT 88–100; BMI 28.6
[2024-01-15] MEDS: Linezolid/D5W 600 MG/300 ML PIGGYBACK 300 MG IV ×2 (02:50→16:39)
[2024-01-15 06:18] LABS: Hematocrit 30.8 % (37.0-47.0); Hemoglobin 8.5 g/dl (12.0-16.0); Mean Corpuscular HGB Conc 27.6 g/dl (31.0-35.0); Mean Corpuscular Hemoglobin 27.5 pg (27.0-33.0); Mean Corpuscular Volume 99.7 fL (80.0-98.0); Mean Platelet Volume 10.6 fL (9.4-12.3); NRBC Pct Auto 0.4 /100WBC (0.0-0.2); Platelet Count 193 X10*3/uL (160-400); Red Blood Count 3.09 X10*6/uL (4.20-5.50); Red Cell Distribution Width 16.1 % (11.0-16.0); White Blood Count 8.4 X10*3/uL (4.8-10.8)
[2024-01-15 06:27] LABS: VBG Base Excess 18.6 mmol/L; VBG HCO3 40 mmol/L (22-26); VBG pCO2 34 mmHg; VBG pH 7.67 (7.32-7.43); VBG pO2 185 mmHg
[2024-01-15 06:28] LABS: Venous Blood Gas Refer to POC result
[2024-01-15] MEDS: Omeprazole 20 MG CAPSULE.DR PO (06:50)
[2024-01-15 06:52] LABS: Anion Gap 13 (12-20); Blood Urea Nitrogen 22 mg/dL (9-16); Calcium 8.7 mg/dL (8.4-10.2); Carbon Dioxide 37 mmol/L (22-29); Chloride 103 mmol/L (96-108); Creatinine Clr Calc Pharmacy 52.9; Estimated Glomerular Filt Rate > 60; Glucose Fasting 372 mg/dL (60-99); Magnesium 2.3 mg/dL (1.6-2.6); Potassium 2.9 mmol/L (3.3-5.1); Sodium 150 mmol/L (135-145)
[2024-01-15 06:56] LABS: ABG Refer to POC result
[2024-01-15 06:57] LABS: ABG Base Excess 21.6 mmol/L; ABG HCO3 48 mmol/L (22-26); ABG pCO2 71 mmHg (32-45); ABG pH 7.44 (7.35-7.45); ABG pO2 70 mmHg (83-108)
[2024-01-15] MEDS: Albuterol/Iprat 2.5/0.5MG 3 ML AMPUL.NEB INHALE ×3 (07:25→20:15)
[2024-01-15 07:26] LABS: Glucose, Whole Blood 310 mg/dL (60-115)
--- NOTE | 2024-01-15 07:45 | PC.RT ---
Pt wore mask for breathing tx. Post tx, pt took off O2 stating I want to , I don't want oxygen . RT x2, RN and tech at bedside attempting to put oxygen back on pt. Pt becoming agitated and refusing to wear O2. MD Avendaño notified by RN.
--- NOTE | 2024-01-15 08:02 | PC.RT ---
MD Avendaño at bedside to assess pt. Pt still refusing oxygen an physically stopping staff from putting cannula on her. MD Avendaño asked staff to restrain pt in order to put on oxygen. Staff followed MD request and 2 point restrained pt with soft restraints. Pt now wearing 2L NC and SATs improved to 88-92%.
[2024-01-15] MEDS: Insulin Lispro 100 UNIT/ML 3 ML VIAL SUBCUT ×3 (08:04→20:23)
[2024-01-15] MEDS: Insulin Glargine,Hum.rec.anlog 100 UNIT/ML 10 ML VIAL 15 UNIT SUBCUT (08:04)
--- NOTE | 2024-01-15 08:08 | PC.NURSE ---
11p-7a: Patient labile at start of shift had periods of outburst, display agitation, to lethargy, non-compliant with O2, constant financial representative provided, patient slept most of shift, compliant with medication.
[2024-01-15] MEDS: LORazepam 2 MG/ML VIAL 1 MG IM (09:00)
--- NOTE | 2024-01-15 09:37 | HO.PM.IMPN ---
Subjective Subjective Date of Service: 01/15/24 Interval History: agitated, pulling off o2 Physical Exam Vital Signs: Vital Signs: Last Vital Signs Temp 97.8 F 01/15/24 09:05 Pulse 76 01/15/24 09:05 Resp 20 01/15/24 09:05 BP 112/58 L 01/15/24 09:05 Pulse Ox 94 01/15/24 09:05 O2 Del Method Nasal Cannula 01/15/24 09:05 O2 Flow Rate 2 01/15/24 09:05 FiO2 35 01/13/24 13:00 BMI result Body Mass Index 28.6 less resp distres sthan before, lethargic, but easily arousable, confused, crackles bilateral Objective Data Active Medications Acetaminophen (Acetaminophen 325 Mg Tablet) 650 mg PO Q6H PRN PRN Reason: Pain, Mild (Pain Scale 1-3), fever or headache Last Admin: 01/12/24 21:04 Dose: 650 mg Albuterol/Ipratropium (Albuterol/Iprat 2.5/0.5mg 3 Ml Ampul.Neb) 3 ml INHALE RQ4H WHILE AWAKE [facility] Last Admin: 01/15/24 07:25 Dose: 3 ml Documented By: ISABELLE Albuterol/Ipratropium (Albuterol/Iprat 2.5/0.5mg 3 Ml Ampul.Neb) 3 ml INHALE Q4H PRN PRN Reason: Wheezing Allopurinol (Allopurinol 300 Mg Tablet) 150 mg PO DAILY [facility] Last Admin: 01/14/24 09:29 Dose: Not Given Documented By: KINA Non-Admin Reason: Patient Refused Amiodarone HCl (Amiodarone Hcl 200 Mg Tablet) 200 mg PO DAILY [facility] Last Admin: 01/14/24 09:29 Dose: Not Given Documented By: KINA Non-Admin Reason: Patient Refused Apixaban (Apixaban 5 Mg Tablet) 5 mg PO BID [facility] Last Admin: 01/14/24 22:38 Dose: Not Given Documented By: KAMILA Non-Admin Reason: Lethargy/ aspiration risk Bisacodyl (Bisacodyl 10 Mg Supp.Rect) 10 mg AR DAILY PRN PRN Reason: Constipation Calcium Carbonate (Calcium Carbonate 750 Mg Tab.Chew) 750 mg PO Q4H PRN PRN Reason: Heartburn Cyclobenzaprine HCl (Cyclobenzaprine Hcl 10 Mg Tablet) 10 mg PO TID [facility] Last Admin: 01/14/24 22:39 Dose: Not Given Documented By: KAMILA Non-Admin Reason: Lethargy/ Aspiration risk Digoxin (Digoxin 0.125 Mg Tablet) 0.125 mg PO DAILY [facility] Last Admin: 01/14/24 09:30 Dose: Not Given Documented By: KINA Non-Admin Reason: Patient Refused Diltiazem HCl (Diltiazem Hcl Cd 180 Mg Cap.Er.24h) 360 mg PO DAILY [facility]; Protocol Last Admin: 01/14/24 09:30 Dose: Not Given Documented By: KINA Non-Admin Reason: Patient Refused Docusate Sodium (Docusate Sodium 100 Mg Capsule) 100 mg PO BID PRN PRN Reason: constipation Gabapentin (Gabapentin 100 Mg Capsule) 200 mg PO TID [facility] Last Admin: 01/14/24 22:39 Dose: Not Given Documented By: KAMILA Non-Admin Reason: Lethargy/Aspiration Risk Glucose (Glucose Gel 15 Gm Gel..Gram.) 15 gm PO Q15M PRN; Protocol PRN Reason: per Hypoglycemia Standing Ord. Guaifenesin/Dextromethorphan (Guaifenesin Dm 600/30 1 Tab Tab.Er.12h) 1 tab PO BID [facility] Last Admin: 01/14/24 22:39 Dose: Not Given Documented By: KAMILA Non-[place] Reason: Lethargy/Aspiration risk Dextrose (D10) 250 mls @ 750 mls/hr IV Q15M PRN; Protocol PRN Reason: per Hypoglycemia Standing Ord. Last Infusion: 01/12/24 00:22 Dose: Infused Documented By: CHRISTA Linezolid (Zyvox/D5w) 600 mg in 300 mls @ 300 mls/hr IV Q12H [facility] Last Infusion: 01/15/24 04:52 Dose: Infused Documented By: MELLO Potassium Chloride (Potassium Chloride/H20) 10 meq in 100 mls @ 100 mls/hr IV Q1H [facility] Stop: 01/15/24 10:59 Last Admin: 01/15/24 08:10 Dose: Not Given Documented By: JAMEY Non-Admin Reason: No Access Insulin Glargine (Insulin Glargine,Hum.Rec.Anlog 100 Unit/Ml 10 Ml Vial) 15 unit SUBCUT DAILY [facility] Last Admin: 01/15/24 08:04 Dose: 15 unit Documented By: JAMEY Insulin Human Lispro (Insulin Lispro 100 Unit/Ml 3 Ml Vial) 0 unit SUBCUT QIDACHS [facility]; Protocol Last Admin: 01/15/24 08:04 Dose: 8 unit Documented By: JAMEY Lidocaine (Lidocaine 4 % Patch Adh..Patch) 1 patch TRANSDERMA DAILY [facility]; Protocol Last Admin: 01/14/24 09:25 Dose: 1 patch Documented By: KINA Lorazepam (Lorazepam 2 Mg/Ml Vial) 1 mg IM Q4H PRN PRN Reason: agitation Magnesium Hydroxide (Milk Of Magnesia 30 Ml Oral.Susp) 30 ml PO DAILY PRN PRN Reason: Constipation Melatonin (Melatonin 3 Mg Tablet) 6 mg PO BEDTIME PRN PRN Reason: Insomnia Morphine Sulfate (Morphine Sulfate 2 Mg/Ml Cartridge) 2 mg IVPUSH Q4H PRN; Protocol PRN Reason: sob, air hunger Last Admin: 01/14/24 10:55 Dose: 2 mg Documented By: KINA Nystatin (Nystatin Powder 15 Gm Bottle) 1 appl TOPICAL BID [facility]; Protocol Last Admin: 01/14/24 22:21 Dose: 1 appl Documented By: KAMILA Comments: body folds, groins and breast Omeprazole (Omeprazole 20 Mg Capsule.) 20 mg PO BID@0630,1630 [facility] Last Admin: 01/15/24 06:50 Dose: 20 mg Documented By: MELLO Ondansetron HCl (Ondansetron Hcl 4 Mg/2 Ml Vial) 4 mg IVPUSH Q8H PRN PRN Reason: Nausea and Vomiting Paroxetine HCl (Paroxetine Hcl 30 Mg Tablet) 30 mg PO DAILY [facility] Last Admin: 01/14/24 09:31 Dose: Not Given Documented By: KINA Non-Admin Reason: Patient Refused Sodium Chloride (0.9 % Sodium Chloride Flush 3 Ml Syringe) 3 ml IVFLUSH QSHIFT [facility] Last Admin: 01/15/24 08:06 Dose: Not Given Documented By: HO.MALDOT Non-Admin Reason: No Access Labs 01/15/24 06:06 01/15/24 06:06 Labs: Laboratory Results - last 24 hr 01/14/24 01/14/24 01/14/24 09:09 10:16 11:44 MCV MCH MCHC RDW Plt Count MPV Absolute Nucleated RBC Nucleated RBC % (auto) O2 Saturation ABG pH at Pt Temp ABG pCO2 at Pt Temp ABG pO2 at Pt Temp ABG HCO3 ABG Base Excess (Actual) VBG pH VBG pCO2 VBG pO2 VBG HCO3 VBG O2 Saturation VBG Base Excess Anion Gap 13 Estim Creat Clear Calc 44.6 Estimated GFR 51 POC Glucose 351 H* 256 H Random Glucose 441 H* Fasting Glucose Calcium 9.1 Phosphorus 3.4 Magnesium 2.3 Albumin 3.5 01/14/24 01/14/24 01/14/24 15:44 15:48 19:32 MCV MCH MCHC RDW Plt Count MPV Absolute Nucleated RBC Nucleated RBC % (auto) O2 Saturation ABG pH at Pt Temp ABG pCO2 at Pt Temp ABG pO2 at Pt Temp ABG HCO3 ABG Base Excess (Actual) VBG pH 7.70 H* VBG pCO2 46 VBG pO2 201 VBG HCO3 57 H VBG O2 Saturation 99.0 VBG Base Excess 33.6 Anion Gap Estim Creat Clear Calc Estimated GFR POC Glucose 108 135 H Random Glucose Fasting Glucose Calcium Phosphorus Magnesium Albumin 01/15/24 01/15/24 01/15/24 06:06 06:13 06:45 MCV 99.7 H MCH 27.5 MCHC 27.6 L RDW 16.1 H Plt Count 193 MPV 10.6 Absolute Nucleated RBC 0.030 H Nucleated RBC % (auto) 0.4 H O2 Saturation 95.0 ABG pH at Pt Temp 7.44 ABG pCO2 at Pt Temp 71 H* ABG pO2 at Pt Temp 70 L ABG HCO3 48 H ABG Base Excess (Actual) 21.6 VBG pH 7.67 H* VBG pCO2 34 VBG pO2 185 VBG HCO3 40 H VBG O2 Saturation TNP VBG Base Excess 18.6 Anion Gap 13 Estim Creat Clear Calc 52.9 Estimated GFR > 60 POC Glucose Random Glucose Fasting Glucose 372 H* Calcium 8.7 Phosphorus Magnesium 2.3 Albumin 01/15/24 07:19 MCV MCH MCHC RDW Plt Count MPV Absolute Nucleated RBC Nucleated RBC % (auto) O2 Saturation ABG pH at Pt Temp ABG pCO2 at Pt Temp ABG pO2 at Pt Temp ABG HCO3 ABG Base Excess (Actual) VBG pH VBG pCO2 VBG pO2 VBG HCO3 VBG O2 Saturation VBG Base Excess Anion Gap Estim Creat Clear Calc Estimated GFR POC Glucose 310 H Random Glucose Fasting Glucose Calcium Phosphorus Magnesium Albumin Microbiology Microbiology Results: Microbiology 01/10/24 23:15 Blood Culture - Final Blood - Venous Enterococcus faecium Assessment and Plan (1) COPD exacerbation: Status: Acute Plan 78F PMH pafib, chronic hypoxic respiraotry failure on 2L, gout, hfref, copd, dm, dysphagai, presented with hypoxia.sob. 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, possible component of sepsis and aspiration pneumonia and acute on chronic diastolic CHF now with acute metabolic alkalosis, will change to diamox, continue to wean o2 Continue IV zyvox for efaecium bacteremia, follow up repeat Id appreciated - likely 14 days zyvox Modified diet - ndd1, honey thick, 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 following IV steroids discontinued bronchodilators acute metabolic encephalopathy due to above and hypernatremia given isotonic saline, once euvolemic will change to d5w, monitor needing restraints as she is pulling off o2 and o2 sats dropping acute hypokalmia replace and monitor Diabetes with hyperglycemia Basal bolus insulin Paroxysmal atrial fibrillation with rapid ventricular response Continue amiodarone, diltiazem, Eliquis DVT prophylaxis on Eliquis Do not intubate - overall poor prognosis, discussed with hcp, patient's granddaughter, Sade, plan for hospice consult, possible outpatient hospice with [facility]? reason for continued hospitalization:still sob, hypoxic Quality Stroke Does the patient have a stroke diagnosis?: No VTE Prior VTE?: No VTE Risk Level:: Medical - moderate - high VTE Device Contraindication: Treatment Not Indicated VTE Drug Contraindication: N/A - Med Ordered
--- NOTE | 2024-01-15 10:35 | HO.MIDLINE ---
Midline Insertion MIDLINE INSERTION Diagnosis: hypoxia Indication: IV access Pertinent Labs: Reviewed Technique: Using sterile technique including cap and mask, glove and drape, the right arm was prepped and draped in the usual sterile fashion of full barrier technique with G. Using ultrasound guidance, right basilic vein access was obtained . 4FR single lumen nonPASV PowerMidline trimmed to 15cm was positioned. The procedure was performed in [facility]. Ultrasound was used to document vein patency and for needle entry. A formal ultrasound picture was recorded. Vascular Electrician Supervisor has released the line for use and it is currently dressed with a StatLock, Tegaderm, and CHG disc. Verification has been performed for blood return and line patency. Arm Circumference: 30cm Equipment: [employer]Snug POWERMIDLINE Catheter Catheter Type: 4FR single lumen nonPASV Lot #: [id number]
--- NOTE | 2024-01-15 11:06 | PC.NURSE ---
Addendum entered by Claribel Pearson RN 01/15/24 15:23: Pt off unit and went down to a CT and PICC line placement at 0915 until 1030, RN accompanied pt for continuously monitoring. Original Note: 0730 pt became agitated and combative with staff. Pt continuously ripping off NC and refusing all medications .Sitter placed; alternative attempted; not affective. Attempted adequate hydration, decreased stimuli, prn medication; not affective. Patient destating to the 70s without oxygen; respiratory at bedside and at bedside. ordered for soft limb restraints; documentation completed. Skin/CMS checked, offered hydration; not effective; soft restraints in place until 1030. Pt no longer in restraints. Dr. Avendaño at bedside during reassessment. Pt resting comfortably in bed. Sitter at bedside. Camera in room.
--- NOTE | 2024-01-15 11:21 | MHC.SPEECHCO ---
Pt resting comfortably in bed this morning with sitters present. GUN NUMBERER deferred due to increased agitation this am. Please contact GUN NUMBERER if requested today, we will continue to follow.
[2024-01-15] MEDS: acetaZOLAMIDE sodium 500 MG VIAL IVPUSH (11:25)
[2024-01-15 11:30] LABS: Glucose, Whole Blood 273 mg/dL (60-115)
[2024-01-15] MEDS: Potassium Chloride/H20 10 MEQ/100 ML PIGGYBACK 100 MEQ IV ×4 (11:31→15:17)
--- NOTE | 2024-01-15 15:22 | PC.NURSE ---
Pt refusing all morning medication; MD Avendaño aware.
[2024-01-15 15:51] LABS: Glucose, Whole Blood 112 mg/dL (60-115)
[2024-01-15] MEDS: 0.9 % Sodium Chloride Flush 3 ML SYRINGE IVFLUSH ×2 (16:38→20:24)
[2024-01-15] MEDS: Dextrose 5 % 1,000 ML 75 ML IVCONT (16:38)
[2024-01-15 20:21] LABS: Glucose, Whole Blood 226 mg/dL (60-115)
[2024-01-15] MEDS: Apixaban 5 MG TABLET PO (20:24)
[2024-01-15] MEDS: Nystatin Powder 15 GM BOTTLE 1 APPL TOPICAL (20:27)
[2024-01-16] VITALS (9 sets, daily range): BP systolic 111–141; BP diastolic 50–90; PULSE 57–138; RESP 12–22; TEMP 35.8–36.4; O2SAT 88–100; BMI 28.6
[2024-01-16] MEDS: Heparin Sodium,Porcine Flush 50 UNITS, 0.9 % Sodium Chloride Flush 5 ML IVFLUSH (01:14)
[2024-01-16] MEDS: Acetaminophen 325 MG TABLET 650 MG PO (02:01)
[2024-01-16] MEDS: Dextrose 5 % 1,000 ML 75 ML IVCONT (04:16)
[2024-01-16] MEDS: Linezolid/D5W 600 MG/300 ML PIGGYBACK 300 MG IV (04:16)
[2024-01-16 07:51] LABS: Glucose, Whole Blood 282 mg/dL (60-115)
[2024-01-16] MEDS: Albuterol/Iprat 2.5/0.5MG 3 ML AMPUL.NEB INHALE ×3 (08:04→15:02)
[2024-01-16] MEDS: Insulin Glargine,Hum.rec.anlog 100 UNIT/ML 10 ML VIAL 15 UNIT SUBCUT (08:26)
[2024-01-16 08:27] LABS: Hematocrit 28.6 % (37.0-47.0); Mean Corpuscular Hemoglobin 26.8 pg (27.0-33.0); Mean Platelet Volume 10.2 fL (9.4-12.3); Platelet Count 188 X10*3/uL (160-400); Red Blood Count 2.98 X10*6/uL (4.20-5.50); Red Cell Distribution Width 15.8 % (11.0-16.0); White Blood Count 8.1 X10*3/uL (4.8-10.8)
[2024-01-16] MEDS: Insulin Lispro 100 UNIT/ML 3 ML VIAL SUBCUT ×2 (08:27→12:18)
[2024-01-16 08:58] LABS: Anion Gap 12 (12-20); Blood Urea Nitrogen 14 mg/dL (9-16); Calcium 8.6 mg/dL (8.4-10.2); Carbon Dioxide 35 mmol/L (22-29); Chloride 101 mmol/L (96-108); Creatinine Clr Calc Pharmacy 57.5; Estimated Glomerular Filt Rate > 60; Glucose Fasting 326 mg/dL (60-99); Magnesium 2.2 mg/dL (1.6-2.6)
[2024-01-16 08:59] LABS: Sodium 145 mmol/L (135-145)
[2024-01-16 09:09] LABS: Potassium 2.8 mmol/L (3.3-5.1)
[2024-01-16] MEDS: Potassium Chloride/H20 10 MEQ/100 ML PIGGYBACK 100 MEQ IV ×2 (11:12→12:19)
--- NOTE | 2024-01-16 11:26 | MHC.SLORD ---
Addendum entered and electronically signed by VANE Mccray 01/16/24 12:25: Per RN, pt currently uncooperative and screaming. Therefore, not appopriate for PASSENGER RATE CLERK visit. RN to [place] PASSENGER RATE CLERK later in day if/when pt becomes appropriate. Original Note: Speech Language Pathology Order Status: Per RN, pt has not been awake/alert enough to administer meds this morning. PASSENGER RATE CLERK will plan to return later in day.
[2024-01-16 11:46] LABS: Glucose, Whole Blood 199 mg/dL (60-115)
[2024-01-16] MEDS: LORazepam 2 MG/ML VIAL 1 MG IM (13:05)
[2024-01-16] MEDS: KCl 20 mEq in 5 % Dextrose 20 MEQ/1,000 ML IV.SOLN 80 MEQ IVCONT (13:36)
--- NOTE | 2024-01-16 14:07 | MHC.SL.SWA ---
Risk of Aspiration Due to: History of Pneumonia Dysphasia Diet Status: UPGRADE liquids to NECTAR Liquid Consistency and Strategies for Safe Swallow: Liquid Intake Recommendation: [place] Thick Liquid Intake Strategies: Small Sips No Straws Solid Food Consistency: Dietary Recommendations: Chopped/Advanced (NDD3) Oral Medication Intake: Whole with Puree Please contact the pharmacy regarding appropriate crushable or liquid drug formulations that are available whenever modified delivery is recommended. Compensatory Strategies and Precautions to be Taken for Safe Swallow: Sitting Upright (90 deg) Double Swallow No Straw Small Bites and Sips Alternate Liquids/Solids Rate of Ingestion Change Avoid Specific Foods Supervision While Eating and Drinking for Safe Swallow: Total Assistance (1:1) Foods to Avoid: Hard, tough to chew solids; mixed consistencies Swallowing Recommended Treatments: Compens. Strategy Educat. Recommendation for Speech: Inpatient Speech Therapy Speech Therapy through Rehab Facility Comment: MBSS 12/03/23 showing silent aspiration with thin liquids, patient has hx of noncompliance with modified diets. Tolerated honey thick and nectar thick liquids via tsp and cup sip w/ direct supervision cueing small sips. Pt did not participate in solid PO trials. Recommend UPGRADE to NECTAR THICK liquids. Continue on CHOPPED/ADVANCED (NDD3) diet and pills WHOLE in PUREE. Patient has history of silent aspiration, is very impulsive and demonstrates unsafe eating behaviors. She requires DIRECT SUPERVISION with all PO intake, close monitoring, and cues for aspiration precautions: take small bites, chew food well, alternate with sips of liquids, liquid by spoon or INDIVIDUAL cup sips, upright 90 degree position when eating and drinking (OOB if possible). Fundraising Consultant Clinican/Clinical Fellow: No Supervisory Statement: I have reviewed and agree with the student/clinical fellow's documentation: N/A Speech Language Pathologist: Bhakti Mims M.A., CCC-FIELD TRAFFIC INVESTIGATOR
--- NOTE | 2024-01-16 15:27 | HO.PM.IMPN ---
Subjective Subjective Date of Service: 01/16/24 Interval History: seen and evaluated this morning very anxious and agitated, disoriented asking for pain medications no other overnight events Review of Systems Review of Systems: Yes all other systems are reviewed and are negative Physical Exam Vital Signs: Vital Signs: Last Vital Signs Temp 96.9 F 01/16/24 15:03 Pulse 138 H 01/16/24 15:03 Resp 20 01/16/24 15:03 BP 134/52 L 01/16/24 15:03 Pulse Ox 91 L 01/16/24 15:03 O2 Del Method Nasal Cannula 01/16/24 15:03 O2 Flow Rate 4 01/16/24 15:03 FiO2 35 01/13/24 13:00 BMI result Body Mass Index 28.6 Const: Other: Constitutional : sleepy, more anxious and restless upon waking up Cardiovascular : irregular irregualr, tachycardia, JVP, trace lower extremity edema Respiratory : fair bilateral air entry, fine basal crackles, no wheezes or rhonchi Gastrointestinal: soft, lax, Normal bowel sounds, Non tender Skin : Warm, Dry Neurological : Alert with stimulation but very disoriented, No focal deficit Psych: restless, agitated on occasions Objective Data Active Medications Acetaminophen (Acetaminophen 325 Mg Tablet) 650 mg PO Q6H PRN PRN Reason: Pain, Mild (Pain Scale 1-3), fever or headache Last Admin: 01/16/24 02:01 Dose: 650 mg Documented By: BRAD Albuterol/Ipratropium (Albuterol/Iprat 2.5/0.5mg 3 Ml Ampul.Neb) 3 ml INHALE RQ4H WHILE AWAKE [facility] Last Admin: 01/16/24 15:02 Dose: 3 ml Documented By: EYAL Albuterol/Ipratropium (Albuterol/Iprat 2.5/0.5mg 3 Ml Ampul.Neb) 3 ml INHALE Q4H PRN PRN Reason: Wheezing Allopurinol (Allopurinol 300 Mg Tablet) 150 mg PO DAILY [facility] Last Admin: 01/16/24 09:05 Dose: Not Given Documented By: JAMEY Non-Admin Reason: Patient Refused Amiodarone HCl (Amiodarone Hcl 200 Mg Tablet) 200 mg PO DAILY [facility] Last Admin: 01/16/24 09:05 Dose: Not Given Documented By: JAMEY Non-Admin Reason: Patient Refused Apixaban (Apixaban 5 Mg Tablet) 5 mg PO BID [facility] Last Admin: 01/16/24 09:05 Dose: Not Given Documented By: JAMEY Non-Admin Reason: Patient Refused Bisacodyl (Bisacodyl 10 Mg Supp.Rect) 10 mg DC DAILY PRN PRN Reason: Constipation Calcium Carbonate (Calcium Carbonate 750 Mg Tab.Chew) 750 mg PO Q4H PRN PRN Reason: Heartburn Heparin Sodium (Porcine) 50 (units/ Sodium Chloride 5 ml) 0 units IVFLUSH QSHIFT [facility] Last Admin: 01/16/24 08:31 Dose: Not Given Documented By: JAMEY Non-Admin Reason: mideline Cyclobenzaprine HCl (Cyclobenzaprine Hcl 10 Mg Tablet) 10 mg PO TID [facility] Last Admin: 01/16/24 15:18 Dose: Not Given Documented By: JAMEY Non-Admin Reason: Patient Refused Digoxin (Digoxin 0.125 Mg Tablet) 0.125 mg PO DAILY [facility] Last Admin: 01/16/24 09:05 Dose: Not Given Documented By: JAMEY Non-Admin Reason: Patient Refused Diltiazem HCl (Diltiazem Hcl Cd 180 Mg Cap.Er.24h) 360 mg PO DAILY [facility]; Protocol Last Admin: 01/16/24 09:05 Dose: Not Given Documented By: JAMEY Non-Admin Reason: Patient Refused Docusate Sodium (Docusate Sodium 100 Mg Capsule) 100 mg PO BID PRN PRN Reason: constipation Gabapentin (Gabapentin 100 Mg Capsule) 200 mg PO TID [facility] Last Admin: 01/16/24 15:18 Dose: Not Given Documented By: JAMEY Non-Admin Reason: Patient Refused Glucose (Glucose Gel 15 Gm Gel..Gram.) 15 gm PO Q15M PRN; Protocol PRN Reason: per Hypoglycemia Standing Ord. Guaifenesin/Dextromethorphan (Guaifenesin Dm 600/30 1 Tab Tab.Er.12h) 1 tab PO BID [facility] Last Admin: 01/16/24 09:06 Dose: Not Given Documented By: JAMEY Non-Admin Reason: Patient Refused Dextrose (D10) 250 mls @ 750 mls/hr IV Q15M PRN; Protocol PRN Reason: per Hypoglycemia Standing Ord. Last Infusion: 01/12/24 00:22 Dose: Infused Documented By: CHRISTA Linezolid (Zyvox/D5w) 600 mg in 300 mls @ 300 mls/hr IV Q12H [facility] Last Infusion: 01/16/24 05:30 Dose: Infused Documented By: BRDA Potassium Chloride/Dextrose (Kcl 20 Meq In 5 % Dextrose) 20 meq in 1,000 mls @ 80 mls/hr IVCONT .[id number] JESSICA Stop: 01/17/24 14:59 Last Admin: 01/16/24 13:36 Dose: 80 mls/hr Documented By: JAMEY Insulin Glargine (Insulin Glargine,Hum.Rec.Anlog 100 Unit/Ml 10 Ml Vial) 15 unit SUBCUT DAILY [facility] Last Admin: 01/16/24 08:26 Dose: 15 unit Documented By: JAMEY Insulin Human Lispro (Insulin Lispro 100 Unit/Ml 3 Ml Vial) 0 unit SUBCUT QIDACHS [facility]; Protocol Last Admin: 01/16/24 12:18 Dose: 2 unit Documented By: JAMEY Lidocaine (Lidocaine 4 % Patch Adh..Patch) 1 patch TRANSDERMA DAILY [facility]; Protocol Last Admin: 01/16/24 09:06 Dose: Not Given Documented By: JAMEY Non-Admin Reason: Patient Refused Lorazepam (Lorazepam 2 Mg/Ml Vial) 1 mg IM Q4H PRN PRN Reason: agitation Last Admin: 01/16/24 13:05 Dose: 1 mg Documented By: JAMEY Magnesium Hydroxide (Milk Of Magnesia 30 Ml Oral.Susp) 30 ml PO DAILY PRN PRN Reason: Constipation Melatonin (Melatonin 3 Mg Tablet) 6 mg PO BEDTIME PRN PRN Reason: Insomnia Morphine Sulfate (Morphine Sulfate 2 Mg/Ml Cartridge) 2 mg IVPUSH Q4H PRN; Protocol PRN Reason: sob, air hunger Last Admin: 01/14/24 10:55 Dose: 2 mg Documented By: KINA Nystatin (Nystatin Powder 15 Gm Bottle) 1 appl TOPICAL BID [facility]; Protocol Last Admin: 01/16/24 09:06 Dose: Not Given Documented By: JAMEY Non-Admin Reason: Patient Refused Omeprazole (Omeprazole 20 Mg Capsule.) 20 mg PO BID@0630,0880 [facility] Last Admin: 01/16/24 04:18 Dose: Not Given Documented By: BRAD Non-Admin Reason: NPO Ondansetron HCl (Ondansetron Hcl 4 Mg/2 Ml Vial) 4 mg IVPUSH Q8H PRN PRN Reason: Nausea and Vomiting Paroxetine HCl (Paroxetine Hcl 30 Mg Tablet) 30 mg PO DAILY [facility] Last Admin: 01/16/24 09:06 Dose: Not Given Documented By: JAMYE Non-Admin Reason: Patient Refused Sodium Chloride (0.9 % Sodium Chloride Flush 3 Ml Syringe) 3 ml IVFLUSH QSHIFT [facility] Last Admin: 01/16/24 08:27 Dose: Not Given Documented By: JAMEY Non-Admin Reason: IV Running Labs 01/16/24 08:02 01/16/24 08:02 Labs: Laboratory Results - last 24 hr 01/15/24 01/15/24 01/16/24 15:46 20:15 07:41 MCV MCH MCHC RDW Plt Count MPV Absolute Nucleated RBC Nucleated RBC % (auto) Anion Gap Estim Creat Clear Calc Estimated GFR POC Glucose 112 226 H 282 H Fasting Glucose Calcium Magnesium 01/16/24 01/16/24 08:02 11:39 MCV 96.0 MCH 26.8 L MCHC 28.0 L RDW 15.8 Plt Count 188 MPV 10.2 Absolute Nucleated RBC 0.000 Nucleated RBC % (auto) 0.0 Anion Gap 12 Estim Creat Clear Calc 57.5 Estimated GFR > 60 POC Glucose 199 H Fasting Glucose 326 H Calcium 8.6 Magnesium 2.2 Microbiology Microbiology Results: Microbiology 01/10/24 23:31 Blood Culture - Final Blood - Venous No growth after 5 days. Assessment and Plan (1) A-fib: Status: Acute (2) COPD exacerbation: Status: Acute (3) Hypoxic respiratory failure: Status: Acute (4) CHF (congestive heart failure): Status: Acute (5) Bacteremia due to Enterococcus: Status: Acute (6) Toxic metabolic encephalopathy: Status: Acute Plan 78F PMH pafib, chronic hypoxic respiraotry failure on 2L, gout, hfref, copd, dm, dysphagai, presented with hypoxia.sob. 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, sepsis and aspiration pneumonia and acute on chronic diastolic CHF changed to diamox with correction of met alkalosis Continue IV zyvox for efaecium bacteremia, follow up repeat Id appreciated - likely 14 days zyvox Modified diet - ndd1, honey thick, WEED CONTROLLER following IV steroids discontinued bronchodilators continue to wean o2 as tolerated acute toxic metabolic encephalopathy due to medications, hospital stay, infection and hypernatremia Na of 145 on D5 keep on IVF for the rest of the day needing restraints as she is pulling off o2 and o2 sats dropping PSychiatry to evaluate her for capacity , i doubt today is a good day given worsens encephalopathy TO decrease Ativan and give Zyprexa for agitation as needed acute hypokalmia replacement given and monitor Diabetes with hyperglycemia Basal bolus insulin Paroxysmal atrial fibrillation with rapid ventricular response Continue amiodarone, diltiazem, Eliquis DVT prophylaxis on Eliquis Do not intubate - overall poor prognosis, discussed with hcp, patient's granddaughter, Sade, plan for hospice consult, possible outpatient hospice with [facility]? reason for continued hospitalization:still sob, hypoxic, encephalopathy Quality Stroke Does the patient have a stroke diagnosis?: No VTE Prior VTE?: No VTE Risk Level:: Medical - moderate - high VTE Device Contraindication: Treatment Not Indicated VTE Drug Contraindication: N/A - Med Ordered
[2024-01-16] MEDS: OLANZapine 10 MG VIAL 5 MG IM (15:33)
--- NOTE | 2024-01-16 15:50 | MHC.CM.PN ---
EMR reviewed and per MD rounds, pt is not medically cleared for discharge due to ongoing management of encephalopathy, COPD/CHF exacerbation, still with confusion requiring symptom management. AIMEE spoke to pts granddaughter/HCP Sade, and she is in agreement with pt discharging back to [facility] with new hospice services from [facility] Anticipating pt will be ready for discharge in the next day or 2.
[2024-01-16 16:06] LABS: Glucose, Whole Blood 210 mg/dL (60-115)
[2024-01-16] MEDS: Morphine Sulfate 2 MG/ML CARTRIDGE IVPUSH ×2 (18:02→20:20)
[2024-01-16 20:17] LABS: Glucose, Whole Blood 161 mg/dL (60-115)
[2024-01-16] MEDS: Nystatin Powder 15 GM BOTTLE 1 APPL TOPICAL (20:26)
[2024-01-17] MEDS: Morphine Sulfate 2 MG/ML CARTRIDGE IVPUSH ×4 (00:22→12:41)
[2024-01-17] MEDS: 0.9 % Sodium Chloride Flush 3 ML SYRINGE IVFLUSH ×2 (00:27→08:38)
[2024-01-17] MEDS: LORazepam 2 MG/ML VIAL 1 MG IVPUSH (01:21)
[2024-01-17 07:57] VITALS: RESP 24
[2024-01-17] MEDS: Heparin Sodium,Porcine Flush 50 UNITS, 0.9 % Sodium Chloride Flush 5 ML IVFLUSH (08:37)
[2024-01-17] MEDS: OLANZapine 10 MG VIAL 5 MG IM (10:21)
[2024-01-17 10:48] VITALS: RESP 24
--- NOTE | 2024-01-17 11:27 | MHC.CM.PN ---
Second IMM 01/17/24, sent to family, pt is confused. Pt has been medically cleared for DC, she is going to return to [facility] and will have services from [facility]. She will go via S today. Her HCP, Sade is aware of transfer.
--- NOTE | 2024-01-17 11:53 | PM.DS ---
DS: Providers Provider Date of Service: 01/17/24 Date of admission: 01/11/24 02:14 Date of discharge: 01/17/24 Primary care physician: Ti Thompson PA-C Consults: 01/11/24 11:31 Consult to Wound Care Routine Reason for consultation: wound L leg 01/11/24 15:27 Consult to Pulmonology Routine Consulting Provider: [facility] Reason for consultation: hypoxia, resp distress 01/14/24 09:15 Consult to Infectious Diseases Routine Consulting Provider: [facility] Reason for consultation: e faecium bacteremia 01/15/24 11:03 Consult to Psychiatry Routine Consulting Provider: Psych [facility] Reason for consultation: Agitation\restlessness for medication advice. DS: Diagnosis Discharge Diagnosis (1) A-fib: Status: Acute (2) COPD exacerbation: Status: Acute (3) Hypoxic respiratory failure: Status: Acute (4) CHF (congestive heart failure): Status: Acute (5) Bacteremia due to Enterococcus: Status: Acute (6) Toxic metabolic encephalopathy: Status: Acute (7) Multifocal atrial tachycardia: Status: Acute DS: Summary Hospital Course Hospital Course: Admission note HPI This is a 78-year-old female with pertinent history of paroxysmal atrial fibrillation on Eliquis, chronic hypoxic respiratory failure on 2 L baseline supplemental oxygen, gout, congestive heart failure with preserved EF, gout, insulin-dependent diabetes mellitus, history of dysphagia with aspiration pneumonia who was sent to the emergency department for evaluation of hypoxia. Patient was found to be hypoxic at outside facility on her home 2 L supplemental oxygen and brought to the ER. Patient does report difficulty breathing and wheezing. She also reports a cough. Patient admits she has been coughing and choking with p.o. intake. No chest pain or palpitations. No fever or chills. No abdominal pain, changes in urinary or bowel habits. In the emergency department, patient requiring 10 L supplemental oxygen and imaging concerning for pneumonia. Patient found to be wheezing despite multiple DuoNeb treatments Hospital course Acute on chronic hypoxic and hypercapneic respiratory failure secondary to COPD with acute decompensation, possible component of new ILD, sepsis and aspiration pneumonia and acute on chronic diastolic CHF Admitted primarly to ICU and placed on BIPAP with fair response. Started on IV Zosyn empiraclly for aspiraiton pneumonia changed to IV zyvox as 1 set of blood culture grew Enterococcus faecium bacteremia as she was evaluated by ID who recommended 2 weeks of antibiotics. Midline was placed. repeated cultures negative but did not finish the full course as goals of care changed. She was also treated with Lasix IV that was later changed to diamox with correction of met alkalosis. received IV steroids that were later discontinued as well. Broncodilator and modified diet - ndd1, honey thick as she was followed by speech therapist. She continued to have difficulties breathing with tachypnea and O2 requiriment. complicated with her altered mentation and continous aspiration risk. regarding her Acute toxic metabolic encephalopathy due to medications, hospital stay, infection and hypernatremia that all combined together to worsen her baseline encephalopathy. Hypernatremia was corrected. Infection was treated with negative repeated cultures. Hypercapnia resolved but the patient mental status continued to be altered with associated agitation and restlessness needing restraints as she was pulling off o2. PSychiatry were asked to evaluate her but could not interview her given her altered mentation and encephalopathy. . Acute hypokalmia replaced and corrected. Paroxysmal atrial fibrillation with rapid ventricular response partially controlled with Amiodarone, diltiazem, Eliquis which will continue on discharge for symptomatic measures. can be discussed with hospice team at SNF. Discharge plan The goals of care were discussed with HCP as HCP was invoked given confusion and disorientation of the patient that were not improving. Decision after lengthy discussion to change her status to [employer] as she spoke with hospice care team and agreed to change the patient status to Hospice care upon discharge to SNF for end of life care. Sade (HCP) understood that hospice care includes stopping all antibiotics the patient was receiving for Bacteremia and cutting down medication list to mainly symptomatic treatment. I explained to Sade that part of her confusion might improve if we continue treatment for the infection this time but there is no gurantee that she wont aspirate and end up in the hospital again in the near future given the recent trend over the last couple of months. the HCP decided to change her status to Hospice\[employer] and asked me to sign her part of MOLST form which was witnessed by dr Cardenas who listened to our conversation after taking the OK from the HCP. Code changed in EMR and she was started on [employer] medications. Morphine PRN Ativan PRN Hyoscyamine PRN Haloperidol PRN Bisacodyl and Acetaminophine Time Attestation Discharge Coordination Time (in mins): 36 Quality: Safe Use of Opioids Does Pt have an Active Cancer Diagnosis on the Problem List?: No Quality: Stroke Does the patient have a stroke diagnosis?: No Physical Exam Vital Signs: Vital Signs: Last Vital Signs Temp 96.4 F L 01/16/24 23:48 Pulse 125 H 01/16/24 23:48 Resp 24 H 01/17/24 10:48 BP 137/90 H 01/16/24 23:48 Pulse Ox 100 01/16/24 23:48 O2 Del Method Nasal Cannula 01/16/24 23:48 O2 Flow Rate 4 01/16/24 19:24 FiO2 35 01/13/24 13:00 BMI result Body Mass Index 28.6 Const: Other: Constitutional : sleepy, less anxious Cardiovascular : irregular irregualr, tachycardia, JVP, trace lower extremity edema Respiratory : fair bilateral air entry, fine basal crackles, no wheezes or rhonchi Gastrointestinal: soft, lax, Normal bowel sounds, Non tender Skin : Warm, Dry Neurological : Alert with stimulation but disoriented, No focal deficit DS: Data Data Completed and Pending Completed studies during hospitalization [Text1]: Procedures Assistance with Respiratory Ventilation, Less than 24 Consecutive Hours, Continuous Positive Airway Pressure (10/30/23) Insertion of Endotracheal Airway into Trachea, Via Natural or Artificial Opening (10/30/23) Insertion of Infusion Device into Left Brachial Vein, Percutaneous Approach (10/30/23) Introduction of Vasopressor into Peripheral Vein, Percutaneous Approach (10/30/23) Respiratory Ventilation, Less than 24 Consecutive Hours (10/30/23) Transfusion of Nonautologous Red Blood Cells into Peripheral Vein, Percutaneous Approach (10/30/23) Labs on day of discharge: Laboratory Results - last 24 hr 01/16/24 01/16/24 16:02 20:12 POC Glucose 210 H 161 H Imaging Chest x-ray: Radiologist's impression: ITS Impressions Chest X-Ray 01/10/24 23:26 IMPRESSION: Coarsened appearance of the interstitium and more confluent opacities of the left lung, similar to possibly slightly increased compared to prior. Appearance could reflect persistent/recurrent infection, though developing interstitial lung disease is also a possibility. Chest X-Ray 01/11/24 22:40 IMPRESSION: Extensive multifocal bilateral airspace opacities, overall worsened from 01/10/2024. Discharge Plan Discharge Anticipated Discharge Date/Time: 01/17/24 11:38 Patient Disposition: Xfer SNF Discharge Diagnosis: Hospice care Referrals: [facility] OF [facility] hospice [Other] - 1 Week [facility] [Outside] - 1 Week [facility] [Outside] - 1 Week Ti Thompson PA-C [Primary Care Provider] - 1 Week Discharge Medications: New morphine 20 mg/5 mL (4 mg/mL) solution 10 mg PO Q4H PRN (Reason: Comfort measures. pain. dyspnea) Qty: 100 0RF Rx Instructions: Partial Fill upon patient request. acetaminophen 650 mg suppository 650 mg DE Q6H PRN (Reason: fever or pain) Qty: 50 0RF haloperidol 0.5 mg tablet 0.5 mg PO Q4H PRN (Reason: nausea and vomiting, Agitation) Qty: 30 0RF hyoscyamine sulfate 0.125 mg tablet, sublingual 0.25 mg sublingual Q4-6H PRN (Reason: Secretions ) Qty: 30 0RF lorazepam 0.5 mg tablet 0.5 mg PO Q4H PRN (Reason: anxiety) Qty: 30 0RF Continued Eliquis 5 mg tablet 5 mg PO BID 30 Days Qty: 60 6RF diltiazem HCl 360 mg Capsule,Extended Release 24 Hr 360 mg PO DAILY trazodone 50 mg Tablet 25 mg PO Q6H PRN (Reason: Anxiety) nicotine 7 mg/24 hr Patch 24 Hour 1 patch TRANSDERMAL DAILY naloxone [Narcan] 4 mg/actuation [place],Non-Aerosol 4 mg INTRANASAL Q3M PRN (Reason: Opioid Overdose) Rx Instructions: spray 1 dose into ONE nostril; alternate nostrils w each dose until help arrives gabapentin 100 mg capsule 200 mg PO TID bisacodyl 10 mg Suppository 10 mg DE DAILY PRN (Reason: Constipation) Qty: 30 0RF Rx Instructions: For no BM if M.O.M ineffective. amiodarone 200 mg Tablet 200 mg PO DAILY Qty: 60 0RF ipratropium-albuterol 0.5 mg-3 mg(2.5 mg base)/3 mL solution for nebulization 3 ml inhalation Q6H PRN (Reason: shortness of breath or wheezing) Qty: 180 2RF Discontinued (DME) blood-glucose meter [Desi Hits Ultra2 Meter] Kit See Rx Instructions .ROUTE .MEDSUPPLY Qty: 1 0RF Hold Instructions: Doctor's Order Rx Instructions: As directed check the blood sugar TID (DME) hospital bed Kit See Rx Instructions .Route Qty: 1 0RF Rx Instructions: As directed furosemide 40 mg tablet 40 mg PO BID Qty: 180 1RF docusate sodium 100 mg capsule 100 mg PO BID PRN (Reason: constipation) Qty: 60 1RF allopurinol 300 mg tablet 150 mg PO DAILY Qty: 45 3RF (DME) pen needle, diabetic [BD Ultra-Fine Tamia Pen Needle] 32 gauge x 5/32 needle See Rx Instructions .ROUTE .MEDSUPPLY Qty: 50 3RF Rx Instructions: three times per day (DME) OneTouch Ultra Test Strip See Rx Instructions .Route Qty: 3 0RF Hold Instructions: Doctor's Order Rx Instructions: As directed check blood sugar 3 times a day (DME) lancets Misc See Rx Instructions .ROUTE .MEDSUPPLY Qty: 100 0RF Rx Instructions: As directed check the blood sugar TID Fleet Enema 19-7 gram/118 mL Enema 118 ml DE DAILY PRN (Reason: Constipation) Rx Instructions: For no BM &If Bisacodyl supp. Ineffective-DO NOT GIVE WITH DIALYSIS/RENAL FAILURE! glucagon HCl [Glucagon (HCl) Emergency Kit] 1 mg Recon Soln 1 mg SUBCUT Q20M PRN (Reason: blood suger) Rx Instructions: until target blood sugar attained prednisone 20 mg Tablet 20 mg PO DAILY Rx Instructions: End Date 01-17-24 @23:59 paroxetine HCl [Paxil] 30 mg Tablet 30 mg PO DAILY Milk of Magnesia (antacid) 311 mg Tablet,Chewable 311 mg PO DAILY PRN (Reason: Constipation) Rx Instructions: For no BM in 3 days ( DO NOT ADMINISTER W/DIALYSIS/RENAL FAILURE) levofloxacin [Levaquin] 750 mg Tablet 750 mg PO DAILY Rx Instructions: Start date 01-07-2024 -End date 01-12-24 Mucus DM 30-600 mg Tablet Extended Release 12 Hr 1 tab PO BID potassium chloride 20 mEq Tablet Extended Release 40 meq PO BEDTIME prednisone 10 mg tablet 10 mg PO DAILY Rx Instructions: End Date 01-27-24@23:59 insulin lispro [Admelog U-100 Insulin lispro] 100 unit/mL solution 2 - 8 unit QIDACHS Protocol: Insulin Correction Scale Less than or equal to 110 ---- Give (units): 0 111 to 150 Give (units): 0 151 to 200 Give (units): 2 201 to 250 Give (units): 2 251 to 300 Give (units): 4 301 to 350 Give (units): 6 Greater than 350 Give (units): 8 Call MD if Blood Glucose > : 400 Rx Instructions: sliding scale acetaminophen 500 mg capsule 500 mg PO TID PRN (Reason: Pain) insulin glargine [Lantus Solostar U-100 Insulin] 100 unit/mL (3 mL) insulin pen 20 unit subcut BEDTIME potassium 20 mg Tablet,Chewable 20 mg PO BEDTIME omeprazole 20 mg Capsule,Delayed Release(Dr/Ec) 20 mg PO BID@0630,1630 Qty: 60 0RF lidocaine [Lidocaine Pain Relief] 4 % Adhesive Patch,Medicated 1 patch transdermal DAILY Qty: 15 0RF Protocol: Apply to: Apply to: midline lower lumbar area Rx Instructions: Apply to lower back in the am and remove in the pm cyclobenzaprine 10 mg tablet 10 mg PO TID (DME) Wheel chair Kit See Rx Instructions .Route Qty: 1 0RF Rx Instructions: As directed (DME) walker Misc See Rx Instructions .Route Qty: 1 0RF Rx Instructions: As directed (DME) commode Kit See Rx Instructions .Route Qty: 1 0RF Rx Instructions: As directed oxycodone 5 mg tablet 5 mg PO Q8H PRN (Reason: pain) Qty: 21 0RF Rx Instructions: Partial Fill upon patient request. albuterol sulfate 90 mcg/actuation HFA aerosol inhaler 2 puff PO Q4H 30 Days Qty: 8.5 3RF (DME) blood-glucose meter [FreeStyle Lite Meter] Kit See Rx Instructions .Route Qty: 1 0RF Rx Instructions: As directed (DME) FreeStyle Lite Strips Strip See Rx Instructions .ROUTE .MEDSUPPLY Qty: 100 3RF Rx Instructions: As directed (DME) lancets [FreeStyle Lancets] 28 gauge misc See Rx Instructions .ROUTE .MEDSUPPLY Qty: 100 3RF Rx Instructions: As directed (DME) FreeStyle Sinan 2 Sensor Kit See Rx Instructions .Route Qty: 1 6RF Rx Instructions: As directed (DME) FreeStyle Sinan 2 [place] Misc See Rx Instructions .Route Qty: 1 6RF Rx Instructions: As directed Discharge Orders: Discharge Order (Routine); Ordered 01/17/24 Ordered By: Rita Mario Diet: Chopped w [place] thick Activity on Discharge: As tolerated Stand Alone Forms: Patient Portal Discharge page Print Language: Citizen Of [place] Care Plan Goals: To discharge to nursing facility for hospice care. Health Concerns: Read below Plan of Treatment: Read below Assessment: Read below Discharge Date/Time: 01/17/24 13:13
== END 2024-01-17 13:13 | disposition skilled nursing facility (03) | DRG 871 ==
LOC: HO.ED 01-11 01:15 → HO.EDOVER 01-11 02:22 → HO.S3 01-11 07:55 → HO.IMC 01-11 09:40 → HO.ICU 01-12 00:36 → HO.IMC 01-13 14:03
PROVIDERS: Internal Medicine; Internal Medicine Pulmonary Disease; Registered Nurse Community Health; Admitting Provider Student in an Organized Health Care Education/Training Program; Emergency Provider Emergency Medicine; PCP Physician Assistant; Visit Provider Student in an Organized Health Care Education/Training Program
DX: A41.9 Sepsis, unspecified organism (principal); G92.8 Other toxic encephalopathy; I50.33 Acute on chronic diastolic (congestive) heart failure; J69.0 Pneumonitis due to inhalation of food and vomit; J96.21 Acute and chronic respiratory failure with hypoxia; J96.22 Acute and chronic respiratory failure with hypercapnia; J84.9 Interstitial pulmonary disease, unspecified; E87.0 Hyperosmolality and hypernatremia; E87.3 Alkalosis; J43.9 Emphysema, unspecified; R13.10 Dysphagia, unspecified; E87.6 Hypokalemia; E11.65 Type 2 diabetes mellitus with hyperglycemia; M10.9 Gout, unspecified; Z51.5 Encounter for palliative care; F39 Unspecified mood [affective] disorder; I48.0 Paroxysmal atrial fibrillation; B95.2 Enterococcus as the cause of diseases classified elsewhere; Z20.822 Contact with and (suspected) exposure to COVID-19; Z99.81 Dependence on supplemental oxygen; Z87.891 Personal history of nicotine dependence; Z79.01 Long term (current) use of anticoagulants; Z79.899 Other long term (current) drug therapy
CPT/HCPCS: 0241U; 36410; 36415; 36600; 71045; 74176; 80048; 80053; 80076; 80307; 81003; 82040; 82140; 82803; 82947; 83605; 83735; 83880; 84100; 84484; 85025; 85027; 85379; 85610; 87040; 87077; 87186; 87205; 92610; 92950; 93005; 94640; 94660; 99285; C1751; C1758; C1894; J0295; J0456; J0696; J1120; J1160; J1642; J1940; J2020; J2060; J2250; J2270; J2359; J2919; J3475; J3480

== ENCOUNTER → 2024-01-10 23:00 | Outpatient (BNV) | payer OTHER, SELFPAY | PROVIDERS: Admitting Provider Student in an Organized Health Care Education/Training Program; Emergency Provider Emergency Medicine; PCP Physician Assistant; Visit Provider Internal Medicine Cardiovascular Disease | DX: R06.02 Shortness of breath (principal); R00.0 Tachycardia, unspecified | CPT/HCPCS: 93010 ==

== ENCOUNTER → 2024-01-11 02:14 | Outpatient (BNV) | payer OTHER, SELFPAY | PROVIDERS: Admitting Provider Student in an Organized Health Care Education/Training Program; Emergency Provider Emergency Medicine; PCP Physician Assistant; Visit Provider Registered Nurse Community Health | DX: J44.1 Chronic obstructive pulmonary disease with (acute) exacerbation (principal); J96.91 Respiratory failure, unspecified with hypoxia; J81.1 Chronic pulmonary edema | CPT/HCPCS: 99291; 99499 ==

== ENCOUNTER → 2024-01-11 02:14 | Outpatient (BNV) | payer OTHER, SELFPAY | PROVIDERS: Admitting Provider Student in an Organized Health Care Education/Training Program; Emergency Provider Emergency Medicine; PCP Physician Assistant; Visit Provider Internal Medicine | DX: J44.1 Chronic obstructive pulmonary disease with (acute) exacerbation (principal) | CPT/HCPCS: 99222 ==

== ENCOUNTER → 2024-01-11 02:14 | Outpatient (BNV) | payer OTHER, SELFPAY | PROVIDERS: Admitting Provider Student in an Organized Health Care Education/Training Program; Emergency Provider Emergency Medicine; PCP Physician Assistant; Visit Provider Internal Medicine Pulmonary Disease | DX: J96.91 Respiratory failure, unspecified with hypoxia (principal); J81.1 Chronic pulmonary edema; I48.91 Unspecified atrial fibrillation; J41.0 Simple chronic bronchitis; E11.65 Type 2 diabetes mellitus with hyperglycemia | CPT/HCPCS: 99223; 99233; 99291 ==

== ENCOUNTER → 2024-01-11 02:14 | Outpatient (BNV) | payer OTHER, SELFPAY | PROVIDERS: Admitting Provider Student in an Organized Health Care Education/Training Program; Emergency Provider Emergency Medicine; Visit Provider Student in an Organized Health Care Education/Training Program | DX: J44.1 Chronic obstructive pulmonary disease with (acute) exacerbation (principal); J96.21 Acute and chronic respiratory failure with hypoxia | CPT/HCPCS: 99223; 99232; 99233; 99239; 99499 ==